=== PATIENT | female | born 1950 | race Caucasian/White ===

== ENCOUNTER → 2018-10-22 | Outpatient (CLI) | payer MEDICARE, OTHER ==
--- NOTE | 2018-10-22 14:34 | MM ---
Reason for exam: clinical finding. Last mammogram was performed 4 years and 11 months ago. History: Patient is postmenopausal and has history of endometrial cancer at age 33. Taking estrogen for 30 years 6 months beginning at age 33. Physical Findings: Nurse did not find any significant physical abnormalities on exam. MG 3D Diag Mammo W/Cad NAVA Bilateral CC and MLO view(s) were taken. Prior study comparison: November 26, 2013, bilateral MG screening mammo w CAD. October 13, 2009, bilateral digital screening mammogram. The breast tissue is heterogeneously dense. This may lower the sensitivity of mammography. Benign appearing bilateral calcifications, with no suspicious groups. No suspicious abnormality. No significant new findings when compared with previous films. These results were verbally communicated with the patient and result sheet given to the patient on 10/22/18. ASSESSMENT: Benign, BI-RAD 2 RECOMMENDATION: Routine screening mammogram of both breasts in 1 year.
== END | disposition home or self-care (01) ==
LOC: RADMAMWWP 13:17
PROVIDERS: ATTEND Surgery
DX: N64.4 Mastodynia (principal)
CPT/HCPCS: 77066; G0279; 77062

== ENCOUNTER → 2018-10-30 | Outpatient (CLI) | payer MEDICARE, OTHER ==
--- NOTE | 2018-10-30 15:07 | BD ---
EXAMINATION TYPE: Axial Bone Density DATE OF EXAM: 10/30/2018 COMPARISON: NONE CLINICAL HISTORY: M 81.0 Height: 4 ft 3 in Weight: 148 FRAX RISK QUESTIONS: RISK FACTORS HISTORY OF: Surgery to Spine/Hip(right/left)/Wrist (right/left): LUMBAR 4-5 When: 2000 Active: YES Postmenopausal woman: TOTAL HYST AGE 35 Take estrogen and/or progesterone medications: ESTRADIOL How lon YEARS Lost more than 2 inches in height since high school: YES AT HER TALLEST SHE WAS 4 FT 11 IN MEDICATIONS: Additional Medications: BLOOD PRESSURE MEDS, ESTRADIOL Additional History: EXAM MEASUREMENTS: Bone mineral density about the R hip (g/cm2): 0.885 Bone mineral density about the L hip (g/cm2): 0.880 T Score values are as follows: -----R Neck: -1.1 -----L Neck: -1.1 -----R Total: 0.0 -----L Total: 0.3 Bone mineral density has: DECREASED -1.9 % since study of: 2009 Bone mineral density about the L Wrist (g/cm2): 0.633 T Score values are as follows: -----Dist. R+U: -0.6 -----Prox. R+U: -0.2 -----Radius total: -0.7 FIRST TIME FOREARM HAS BEEN DONE IMPRESSION: Osteopenia (T Score between -2.5 and -1). There is slightly increased risk of fracture and the patient may be considered for treatment. Re-Screen 2-5 years. NOTE: T-SCORE=SD OF THE YOUNG ADULT MEAN.
== END | disposition home or self-care (01) ==
LOC: RADBDWWP 12:56
PROVIDERS: ATTEND Internal Medicine Geriatric Medicine
DX: M85.80 Other specified disorders of bone density and structure, unspecified site (principal)
CPT/HCPCS: 77080

== ENCOUNTER → 2018-11-01 | Outpatient (CLI) | payer MEDICARE, OTHER ==
[2018-11-01 15:26] VITALS: BP 145/82; PULSE 68; RESP 18; TEMP 97.8; BMI 33.1
--- NOTE | 2018-11-01 16:16 | P.GSHP ---
History of Present Illness H&P Date: 11/01/18 Chief Complaint: Right upper quadrant constant pain The patient is a 68-year-old white female who presents for examination secondary to right upper quadrant abdominal pain. She did have a bilateral mammogram and [id number] this was benign BIRADS 2. The patient does not complain of any lumps or masses in her breasts. No nipple discharge or skin changes of the breast. The patient's pain is located across the upper abdomen and sometimes goes from the right to the left side. The pain also seems to travel to the back. The pain is aggravated with physical work. The patient was not started in the back and come to the front but it does start in the front and go to the back. The patient has had multiple bouts of pancreatitis, this occurred following back surgery in 2000. She does not have any problems with back pain at this time. The patient does complain of reflux. Family History: none Hormonal History: Menarche: 10 2 miscarrages, breast fed: no, first born at 18 menopause: Total hysterectomy for endometriosis BCP: none hormones: estrodial Surgical history: 1. Total abdominal hysterectomy for endometriosis 2. back surgery 3. bladder sling 4. lipoma, pain after removed Medical history: pancreatitis hiatal hernia Social History: smoke: none alcohol: occasional drugs: none - Constitutional Constitutional: Reports sweats - EENT Eyes: denies blurred vision, denies pain Ears: deny: decreased hearing, tinnitus Ears, nose, mouth and throat: Reports headache - Breasts Breasts: bilateral: as per HPI - Cardiovascular Cardiovascular: Reports high blood pressure, Reports shortness of breath, Denies chest pain - Respiratory Comment: asthma - Gastrointestinal Comment: Hiatal hernia, history of peptic ulcer disease Gastrointestinal: Reports diarrhea - Genitourinary (Female) Genitourinary: Denies dysuria, Denies hematuria - Menstruation Menstruation: Reports post hysterectomy - Musculoskeletal Comment: back surgery - Integumentary Integumentary: Denies pruritus, Denies rash - Neurological Comment: tingling in hands Neurological: Reports numbness - Psychiatric Psychiatric: Reports depression, Denies anxiety - Endocrine Endocrine: Reports fatigue - Hematologic/Lymphatic Comment: none - Allergic/Immunologic Allergic/Immunologic: Reports as per HPI Past Medical History History of Any Multi-Drug Resistant Organisms: None Reported Smoking Status: Never smoker Medications and Allergies Home Medications Medication Instructions Recorded Confirmed Type ALPRAZolam [Xanax] 0.25 mg PO HS PRN 11/01/18 11/01/18 History Calcium Carbonate [Calcium] 600 mg PO DAILY 11/01/18 11/01/18 History Estradiol 0.5 mg PO DAILY 11/01/18 11/01/18 History Iron 18 mg PO DAILY 11/01/18 11/01/18 History Lisinopril [Zestril] 10 mg PO DAILY 11/01/18 11/01/18 History Multivitamin [Multivitamins Adult 1 each PO DAILY 11/01/18 11/01/18 History Gummies] Vitamin B Complex 1 each PO DAILY 11/01/18 11/01/18 History Allergies Allergy/AdvReac Type Severity Reaction Status Date / Time No Known Allergies Allergy Unverified 11/01/18 15:26 Surgical - Exam Vital Signs Temp Pulse Resp BP Pulse Ox 97.8 F 68 18 145/82 100 11/01/18 15:21 11/01/18 15:21 11/01/18 15:21 11/01/18 15:21 11/01/18 15:21 - General well developed, well nourished, no distress - Eyes normal ocular movement - ENT no hearing loss, no congestion - Neck no masses, trachea midline - Respiratory normal respiratory effort, clear to auscultation - Cardiovascular Rhythm: regular Heart Sounds: normal: S1, S2 - Abdomen Abdomen: soft, non tender, no guarding, no rigid, no rebound - Integumentary normal turgor - Neurologic no disoriented, no combative - Musculoskeletal normal gait, normal posture - Psychiatric oriented to time, oriented to person, oriented to place, speech is normal, memory intact Breast examination: Patient deferred Results Mammogram reviewed with Dr. Carl Computed tomography scan abdomen and pelvis reviewed Thoracic CT reviewed Spinal films reviewed Abdomen Revealed Assessment and Plan Assessment: Impression: 1. Chronic mid epigastric abdominal pain 2. Hiatal hernia 3. 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 Recent mammogram with no lesions of concern 5. Groundglass appearance of lungs on chest CT 6. History of pancreatitis Plan: 1. Patient at this time has no radiographic disease in the breast 2. The midepigastric pain does not appear to be originating from the breast 3. Patient deferred breast exam 4. Would recommend medical management of medical problems, this will most likely include appointment with pulmonology, and questionable appointment with surgery regarding hiatal hernia. Cc: Dr. Liu
== END ==
LOC: WWCWWP 14:52
PROVIDERS: ATTEND Surgery
DX: Z53.9 Procedure and treatment not carried out, unspecified reason (principal)

== ENCOUNTER 2019-10-02 06:56 | Day surgery (SDC) | payer MEDICARE, OTHER ==
[2019-09-29 16:00] VITALS: BMI 29.2
[~2019-10-02 06:56] MED LIST: LACTATED RINGERS 1,000 ML IV SCH; LIDOCAINE 1% (10MG/ML) FOR IV START INTRADERMA PRN
[2019-10-02 07:10] VITALS: RESP 16; TEMP 97.9
--- NOTE | 2019-10-02 07:57 | P.GSHP ---
History of Present Illness H&P Date: 10/02/19 CHIEF COMPLAINT: GERD HISTORY OF PRESENT ILLNESS: The patient is a 69-year-old female who presents reports gastroesophageal reflux disease. Upper endoscopy was offered for further evaluation and management. PAST MEDICAL HISTORY: Please see list. PAST SURGICAL HISTORY: Please see list. MEDICATIONS: Please see list. ALLERGIES: Please see list. SOCIAL HISTORY: No illicit drug use FAMILY HISTORY: No reports of Crohn disease or ulcerative colitis. REVIEW OF ORGAN SYSTEMS: CONSTITUTIONAL: No reports of fevers or chills. GI: Denies any blood in stools or constipation. PHYSICAL EXAM: VITAL SIGNS: Stable GENERAL: Well-developed and pleasant in no acute distress. HEENT: No scleral icterus. Extraocular movements grossly intact. Moist buccal mucosa. NECK: Supple without lymphadenopathy. CHEST: Unlabored respirations. Equal bilateral excursions. CARDIOVASCULAR: Regular rate and rhythm. Distal 2+ pulses. ABDOMEN: Soft, nondistended. MUSCULOSKELETAL: No clubbing, cyanosis, or edema. ASSESSMENT: 1. Gastroesophageal reflux disease PLAN: 1. Recommend proceeding with an upper endoscopy Past Medical History Past Medical History: Asthma, GERD/Reflux, Thyroid Disorder Additional Past Medical History / Comment(s): Hiatal Hernia, hx 2 ulcers in stomach; Bursitis both knees. Hx pancreatitis. History of Any Multi-Drug Resistant Organisms: None Reported Past Surgical History: Hysterectomy, Orthopedic Surgery, Tonsillectomy Additional Past Surgical History / Comment(s): Back surgery with hardware, L carpal tunnel, L foot surgery. Past Anesthesia/Blood Transfusion Reactions: Postoperative Nausea & Vomiting (PONV) Past Psychological History: No Psychological Hx Reported Smoking Status: Never smoker Past Alcohol Use History: Occasional Past Drug Use History: None Reported - Past Family History Mother Family Medical History: No Reported History Medications and Allergies Home Medications Medication Instructions Recorded Confirmed Type ALPRAZolam [Xanax] 0.25 mg PO HS PRN 11/01/18 10/02/19 History Calcium Carbonate [Calcium] 600 mg PO DAILY 11/01/18 10/02/19 History Estradiol 0.5 mg PO DAILY 11/01/18 10/02/19 History Lisinopril [Zestril] 20 mg PO DAILY 11/01/18 10/02/19 History Multivitamin [Multivitamins Adult 1 each PO DAILY 11/01/18 10/02/19 History Gummies] Vitamin B Complex 1 each PO DAILY 11/01/18 10/02/19 History Allergies Allergy/AdvReac Type Severity Reaction Status Date / Time No Known Allergies Allergy Unverified 10/02/19 07:07 Surgical - Exam Vital Signs Temp Pulse Resp BP Pulse Ox 97.9 F 96 16 169/87 95 10/02/19 07:09 10/02/19 07:09 10/02/19 07:09 10/02/19 07:09 10/02/19 07:09
[2019-10-02] MEDS ORDERED: MIDAZOLAM 2 MG/2 ML VIAL ONE (07:58)
[2019-10-02] MEDS ORDERED: PROPOFOL 10 MG/ML 20 ML VIAL IV ONE (07:58)
[2019-10-02] MEDS ORDERED: LIDOCAINE 1% INJ 10MG/ML (20 ML MDV) ONE (07:58)
[2019-10-02] MEDS ORDERED: fentaNYL (PF) 50 MCG/ML 2 ML AMP ONE (07:58)
--- NOTE | 2019-10-02 08:16 | P.PCN ---
Date of Procedure: 10/02/19 Description of Procedure: PREOPERATIVE DIAGNOSIS: Gastroesophageal reflux disease. Hiatal hernia POSTOPERATIVE DIAGNOSIS: Gastroesophageal reflux disease. Diaphragmatic hiatal hernia Superficial gastric ulcers with bleeding Obstructive sleep apnea OPERATION: Esophagogastroduodenoscopy with biopsies along antrum. SURGEON: Nydia Tovar MD ANESTHESIA: MAC. INDICATIONS: The patient is a 69-year-old female who presents with a history of reflux disease. Benefits and risks of the procedure were described. Informed consent was obtained. DESCRIPTION: The patient was brought into the endoscopy suite and laid in the left lateral decubitus position. An Olympus gastroscope was passed along the posterior oropharynx down to the distal esophagus where the squamocolumnar junction was encountered at 30 cm from the incisors. The stomach was entered and no bile reflux was found. Additional findings are listed below. Biopsies with cold forceps were obtained of the antrum. The first through third portion of the duodenum was examined and unremarkable. Retroflexion of the scope confirmed Hill grade 4 lower esophageal valve. The squamocolumnar junction demonstrated LA grade B erosive esophagitis. The stomach was desufflated. The patient tolerated the procedure well. FINDINGS: Squamocolumnar junction 30 cm from the incisors. Diaphragmatic hiatus at 35 cm. Hiatal hernia, 5 cm, sliding type Hill grade 4 lower esophageal valve. LA grade B erosive esophagitis. No active duodenitis. Acute bleeding from superficial gastric ulcers, cardia Decreased oxygen saturation during procedure consistent with sleep apnea RECOMMENDATIONS: 1. Recommend iron panel for gastric ulcers from symptomatic hiatal hernia 2. Omeprazole 40 mg daily for 2 weeks 3. Recommend referral for sleep apnea and treatment Plan - Discharge Summary Discharge Rx Participant: Yes New Discharge Prescriptions: New Omeprazole [PriLOSEC] 40 mg PO DAILY #14 cap Continue ALPRAZolam [Xanax] 0.25 mg PO HS PRN PRN Reason: Anxiety Vitamin B Complex 1 each PO DAILY Multivitamin [Multivitamins Adult Gummies] 1 each PO DAILY Lisinopril [Zestril] 20 mg PO DAILY Estradiol 0.5 mg PO DAILY Calcium Carbonate [Calcium] 600 mg PO DAILY Discharge Medication List ALPRAZolam [Xanax] 0.25 mg PO HS PRN 11/01/18 [History] Calcium Carbonate [Calcium] 600 mg PO DAILY 11/01/18 [History] Estradiol 0.5 mg PO DAILY 11/01/18 [History] Lisinopril [Zestril] 20 mg PO DAILY 11/01/18 [History] Multivitamin [Multivitamins Adult Gummies] 1 each PO DAILY 11/01/18 [History] Vitamin B Complex 1 each PO DAILY 11/01/18 [History] Omeprazole [PriLOSEC] 40 mg PO DAILY #14 cap 10/02/19 [Rx] Follow up Appointment(s)/Referral(s): Nydia Tovar MD [STAFF PHYSICIAN] - 10/14/19 Patient Instructions/Handouts: *Surgery [facility] - (Anesthesia) Endoscopy Discharge Instructions, Upper Endoscopy (DC), Peptic Ulcer (DC), Diet for Stomach Ulcers and Gastritis (GEN), Hiatal Hernia (DC) Activity/Diet/Wound Care/Special Instructions: New prescription at pharmacy Discharge Disposition: HOME SELF-CARE
[2019-10-02 08:29] VITALS: BP 117/76; PULSE 92
== END 2019-10-02 08:49 | disposition home or self-care (01) ==
LOC: ORWHC2ENDO 06:56
PROVIDERS: ATTEND Surgery Plastic and Reconstructive Surgery
DX: K21.0 Gastro-esophageal reflux disease with esophagitis (principal); K25.4 Chronic or unspecified gastric ulcer with hemorrhage; K29.51 Unspecified chronic gastritis with bleeding; K44.9 Diaphragmatic hernia without obstruction or gangrene; G47.33 Obstructive sleep apnea (adult) (pediatric); K22.11 Ulcer of esophagus with bleeding; J45.909 Unspecified asthma, uncomplicated; E07.9 Disorder of thyroid, unspecified; I10 Essential (primary) hypertension; Z88.5 Allergy status to narcotic agent; Z87.11 Personal history of peptic ulcer disease; Z87.39 Personal history of other diseases of the musculoskeletal system and connective tissue; Z87.19 Personal history of other diseases of the digestive system; Z90.710 Acquired absence of both cervix and uterus; Z98.890 Other specified postprocedural states; Z90.89 Acquired absence of other organs; Z86.69 Personal history of other diseases of the nervous system and sense organs; Z91.89 Other specified personal risk factors, not elsewhere classified; Z79.899 Other long term (current) drug therapy; Z79.890 Hormone replacement therapy
CPT/HCPCS: 88305; 43239; J2250; J2001; J3010; J2704

== ENCOUNTER → 2019-10-22 | Day surgery (SDC) | payer MEDICARE, OTHER ==
[2019-10-20 16:01] VITALS: BMI 29.5
[~2019-10-22] MED LIST changes: +ALPRAZolam 0.25 MG TAB PO PRN; +ALPRAZolam 0.5 MG TAB PO PRN; +ASPIRIN 325 MG TAB PO STA; +HEPARIN SODIUM 1,000 UN/ML (10ML VL) IV ONE; +IOPAMIDOL-370 100ML BTL INJ ONE; -LACTATED RINGERS 1,000 ML IV SCH; -LIDOCAINE 1% (10MG/ML) FOR IV START INTRADERMA PRN; +LIDOCAINE 1% INJ 10MG/ML (20 ML MDV) SQ ONE; +MIDAZOLAM 2 MG/2 ML VIAL IVP ONE; +MULTIVITAMINS, THERA 1 EACH TAB PO SCH; +NITROGLYCERIN SL TABS 0.4 MG TAB SUBLINGUAL PRN; +NON FORMULARY DRUG (Vitamin B Complex [Vitamin B Complex] 1 EACH) PO SCH; +PANTOPRAZOLE 40 MG TABLET PO SCH; +RX INFO: IV CONTRAST WAS GIVEN 1 EACH MISC MISCELLANE PRN; +SODIUM CHLORIDE 0.9% 1,000 ML IV SCH; +SODIUM CHLORIDE 0.9% 1,000 ML in EMPTY BAG 1 BAG IV ONE; +VERAPAMIL SYRINGE (5 MG/10 ML) INTRAARTER ONE; +fentaNYL (PF) 50 MCG/ML 2 ML AMP IV ONE; +lisinopriL 20 MG TAB PO SCH
[2019-10-22 09:56] LABS: Basophils # (A) 0.1 k/uL (0-0.2); Basophils % (A) 0 %; Eosinophils # (A) 0.4 k/uL (0-0.7); Eosinophils % (A) 3 %; HCT 45.7 % (34.0-46.0); HGB 14.7 gm/dL (11.4-16.0); Lymphocytes # (A) 2.4 k/uL (1.0-4.8); Lymphocytes % (A) 20 %; MCH 30.3 pg (25.0-35.0); MCHC 32.3 g/dL (31.0-37.0); MCV 93.8 fL (80.0-100.0); Mean Platelet Volume 7.5; Monocytes # (A) 0.4 k/uL (0-1.0); Monocytes % (A) 4 %; Neutrophils # (A) 8.6 k/uL (1.3-7.7); Neutrophils % (A) 72 %; Platelet Count 402 k/uL (150-450); RBC 4.87 m/uL (3.80-5.40); RDW 14.1 % (11.5-15.5)
[2019-10-22 09:57] VITALS: RESP 18; TEMP 98.2
[2019-10-22 10:09] LABS: African American GFR (CKD) >90 (>60 ml/min/1.73 sqM); Anion Gap 7 mmol/L; Blood Urea Nitrogen 19 mg/dL (7-17); Calcium 9.4 mg/dL (8.4-10.2); Carbon Dioxide 24 mmol/L (22-30); Chloride 107 mmol/L (98-107); Glucose 90 mg/dL (74-99); Non-African American GFR(CKD) 88 (>60 ml/min/1.73 sqM); Sodium 138 mmol/L (137-145)
[2019-10-22 10:11] LABS: Potassium 4.8 mmol/L (3.5-5.1)
--- NOTE | 2019-10-22 12:29 | LTR ---
DATE OF SERVICE: 10/22/2019 RE: Twyla Stevens Dear Dr. Liu: I had the pleasure to perform cardiac catheterization on Mrs. Stevens at [facility] on October 22, 2019 and a full copy of the procedure note will be forwarded to you. In brief, she was found to have no evidence of obstructive coronary artery disease and based on those findings, I see no contraindication to her scheduled surgical intervention. Thank you again for allowing me to participate in this patient's personal care. Please feel free to call for any questions. Sincerely yours, MD OLU DanielleL / SULMAN: [id number] /
--- NOTE | 2019-10-22 12:29 | CC ---
CARDIAC CATHETERIZATION REPORT Mrs Ferris is a 69-year-old female with no prior documented history of coronary artery disease who is scheduled to undergo intervention by Dr. Tovar, underwent a myocardial perfusion imaging that revealed evidence of inducible ischemia involving the lateral wall. The patient has a known history of hypertension, hyperlipidemia. In view of that, recommendation made regarding cardiac catheterization. The procedures, risks, and complication were discussed with the patient who is in full understanding and agreement. PROCEDURE: Patient was brought to quality assurance lab technician in a fasting semi-sedated state after receiving fentanyl and Benadryl and achieving moderate conscious sedated state. Using Xylocaine anesthesia and Seldinger technique, a 6-Maori sheath was introduced in the right radial artery. Selective right and left coronary angiography performed using 5-Maori 3.5 left Gianna and 4 bend right Gianna catheter, multiple views of the coronary artery including hemiaxial views obtained. following that, the right Gianna was used to cross the aortic valve and left ventricular end-diastolic pressure was calculated. Following that, catheter and sheath were removed. Hemostasis was obtained with deployment of a TR band. There was no immediate complication. Patient is returned to her room in stable condition. Of note, the patient received 4000 units of intravenous heparin as well as intra-arterial verapamil. FINDINGS: LEFT MAIN: This is a large-sized vessel, bifurcating into left circumflex, left anterior descending artery, left main coronary artery has no evidence of high-grade stenosis. LEFT ANTERIOR DESCENDING ARTERY: This is a large-sized vessel, reaching toward the apex with a wraparound apex segment giving rise to 2 diagonal branch the left and descending artery as well as branches have no evidence of obstructive coronary disease next left circumflex this is a nondominant vessel giving rise to 4 obtuse marginal branch. The third one is the largest in caliber, the left circumflex as well as branches have no evidence of obstructive coronary artery disease. RIGHT CORONARY ARTERY: This is a large dominant vessel that has a posterior takeoff bifurcating distally PDA and posterolateral segment branches. The right coronary artery as well as branches have no evidence of obstructive coronary artery disease. LEFT VENTRICULOGRAM: Left ventriculogram was not performed. HEMODYNAMICS: There was no gradient across the aortic valve. The left ventricular end-diastolic pressure was 8-12 mmHg. CONCLUSION: 1. Normal coronary arteries. 2. Normal left ventricular end-diastolic pressure. RECOMMENDATION: In view of finding anatomy, I recommend continue medical therapy with aggressive coronary risk modifications being initiated. Those findings and recommendation were discussed with the patient and her family and they are in full understanding and agreement. Duration of procedure 20 minutes. KRISTOFER / JEREMY: [id number] /
[2019-10-22 15:26] VITALS: BP 104/62; PULSE 75
== END | disposition home or self-care (01) ==
LOC: CATHCVL 09:25
PROVIDERS: ATTEND Internal Medicine Interventional Cardiology
DX: R07.9 Chest pain, unspecified (principal); R94.39 Abnormal result of other cardiovascular function study; I10 Essential (primary) hypertension; Z82.49 Family history of ischemic heart disease and other diseases of the circulatory system; E78.2 Mixed hyperlipidemia; Z98.1 Arthrodesis status; Z98.890 Other specified postprocedural states; Z87.891 Personal history of nicotine dependence; Z79.82 Long term (current) use of aspirin; Z79.890 Hormone replacement therapy; Z79.899 Other long term (current) drug therapy
CPT/HCPCS: 93458; 80048; 85025; C1769; C1894; J2250; J2001; J3010; J1644; Q9967

== ENCOUNTER → 2020-01-09 | Outpatient (CLI) | payer MEDICARE, OTHER ==
--- NOTE | 2020-01-12 09:41 | MM ---
Reason for exam: screening (asymptomatic). Last mammogram was performed 1 year and 3 months ago. History: Patient is postmenopausal and has history of endometrial cancer at age 33. Taking estrogen for 30 years 6 months beginning at age 33. Physical Findings: A clinical breast exam by your physician is recommended on an annual basis and results should be correlated with mammographic findings. MG 3D Screening Mammo W/Cad Bilateral CC and MLO view(s) were taken. Prior study comparison: October 22, 2018, bilateral MG 3d diag mammo w/cad NAVA. November 26, 2013, bilateral MG screening mammo w CAD. There are scattered fibroglandular densities. Finding #1: There is questionable architectural distortion in the outer quadrant of the left breast. Finding #2: There are typically benign calcifications in both breasts. There is a chronic nodularity in the right breast, stable. ASSESSMENT: Incomplete: need additional imaging evaluation, BI-RAD 0 RECOMMENDATION: Special view mammogram of the left breast. If lesion persists on supplemental views, image directed ultrasound is recommended. [facility] will attempt to contact patient to return for supplemental views and ultrasound if indicated.
== END | disposition home or self-care (01) ==
LOC: RADMAMWWP 11:08
PROVIDERS: ATTEND Internal Medicine Geriatric Medicine
DX: Z12.31 Encounter for screening mammogram for malignant neoplasm of breast (principal)
CPT/HCPCS: 77063; 77067

== ENCOUNTER → 2020-03-02 | Outpatient (CLI) | payer MEDICARE, OTHER ==
--- NOTE | 2020-03-02 08:51 | US ---
EXAMINATION TYPE: US gallbladder DATE OF EXAM: 03/02/2020 COMPARISON: NONE CLINICAL HISTORY: K80.20 GALLSTONES. EXAM MEASUREMENTS: Liver Length: 12.4 cm Gallbladder Wall: 0.2 cm CBD: 0.6 cm Right Kidney: 8.7 x 3.7 x 5.0 cm Pancreas: Tail obscured by overlying bowel gas Liver: wnl Gallbladder: wnl Evidence for sonographic Edwards's sign: no CBD: wnl Right Kidney: multiple tiny echogenic foci, probable stones, measures small IMPRESSION: 1. Multiple tiny right renal stones are suspected with no evidence of hydronephrosis. 2. No evidence of gallstones.
--- NOTE | 2020-03-02 13:24 | NM ---
EXAMINATION TYPE: NM hepatobiliary w EF DATE OF EXAM: 03/02/2020 COMPARISON: Ultrasound gallbladder same date HISTORY: Diaphragmatic hernia and pain TECHNIQUE: After the intravenous administration of 4.9 mCi Tc 99m Mebrofenin hepatobiliary scintigrap hy is performed. Immediate images post injection. FINDINGS: There is satisfactory initial accumulation of tracer by the liver. The gallbladder is visualized wit hin 8 minutes. The small bowel activity is noted within 30 minutes. At one hour 8 ounces of oral en sure plus is given to mimic CCK and gallbladder ejection fraction is calculated at 84 %, at the upper limit of the normal range. Therefore there is no scintigraphic evidence of cystic or common bile du ct obstruction to suggest acute cholecystitis. IMPRESSION: Exam is within normal limits.
== END | disposition home or self-care (01) ==
LOC: RADUSWWP 08:04
PROVIDERS: ATTEND Surgery Plastic and Reconstructive Surgery
DX: K80.20 Calculus of gallbladder without cholecystitis without obstruction (principal); K44.9 Diaphragmatic hernia without obstruction or gangrene; Z88.6 Allergy status to analgesic agent
CPT/HCPCS: 76705; 78226; A9537

== ENCOUNTER → 2020-03-02 | Outpatient (CLI) | payer MEDICARE, OTHER | END | disposition home or self-care (01) | LOC: LABWHC1 08:07 | PROVIDERS: ATTEND Internal Medicine Interventional Cardiology | DX: Z53.9 Procedure and treatment not carried out, unspecified reason (principal) ==

== ENCOUNTER → 2020-03-10 | Outpatient (CLI) | payer MEDICARE, OTHER ==
--- NOTE | 2020-03-10 12:54 | FL ---
Barium swallow HISTORY: Pain under rib cage, hernia, K 80.20 Patient was given high density barium to drink. 15 intraoperative images, 1 minute 27 seconds fluoroscopy time Correlation to CT scan 09/16/2018 There is a paraesophageal hernia present with partial intrathoracic stomach. Some tertiary esophageal contractions were noted. No extrinsic esophageal lesion, no intrinsic lesion. There is no obstructio n to flow. No gastroesophageal reflux was identified. IMPRESSION: Hiatal hernia with partial intrathoracic stomach.
== END | disposition home or self-care (01) ==
LOC: RADUSWWP 09:21
PROVIDERS: ATTEND Surgery Plastic and Reconstructive Surgery
DX: K44.9 Diaphragmatic hernia without obstruction or gangrene (principal); Z88.6 Allergy status to analgesic agent
CPT/HCPCS: 74220

== ENCOUNTER → 2020-03-10 | Outpatient (CLI) | payer MEDICARE, OTHER ==
--- NOTE | 2020-03-10 11:23 | MM ---
Reason for exam: additional evaluation requested from abnormal screening. Last mammogram was performed 2 months ago. History: Patient is postmenopausal and has history of endometrial cancer at age 33. Taking estrogen for 30 years 6 months beginning at age 33. Physical Findings: Nurse did not find any significant physical abnormalities on exam. MG 3D Work Up W/Cad LT Spot compression CC, spot compression MLO, and LM view(s) were taken of the left breast. Prior study comparison: January 09, 2020, bilateral MG 3d screening mammo w/cad. October 22, 2018, bilateral MG 3d diag mammo w/cad NAVA. There are scattered fibroglandular densities. There is no discrete abnormality. No significant new findings when compared with previous films. These results were verbally communicated with the patient and result sheet given to the patient on 03/10/20. ASSESSMENT: Benign, BI-RAD 2 RECOMMENDATION: Return to routine screening mammogram schedule for both breasts.
== END | disposition home or self-care (01) ==
LOC: RADMAMWWP 10:18
PROVIDERS: ATTEND Internal Medicine Geriatric Medicine
DX: R92.8 Other abnormal and inconclusive findings on diagnostic imaging of breast (principal)
CPT/HCPCS: 77065; G0279; 77061

== ENCOUNTER → 2020-04-16 | Outpatient (CLI) | payer MEDICARE, OTHER ==
[2020-04-16 15:47] LABS: Chol/HDL Ratio 2.8
== END | disposition home or self-care (01) ==
LOC: LABWHC1 09:42
PROVIDERS: ATTEND Internal Medicine Interventional Cardiology
DX: E78.2 Mixed hyperlipidemia (principal)
CPT/HCPCS: 36415; 80061; 84450; 84460

== ENCOUNTER → 2020-04-16 | Outpatient (CLI) | payer MEDICARE, OTHER ==
[2020-04-16 10:30] LABS: HCT 42.7 % (34.0-46.0); HGB 13.6 gm/dL (11.4-16.0); MCH 29.6 pg (25.0-35.0); MCHC 31.8 g/dL (31.0-37.0); MCV 92.9 fL (80.0-100.0); Mean Platelet Volume 7.1; Platelet Count 349 k/uL (150-450); RDW 14.8 % (11.5-15.5); WBC 8.2 k/uL (3.8-10.6)
== END | disposition home or self-care (01) ==
LOC: LABPAT 09:34
PROVIDERS: ATTEND Surgery Plastic and Reconstructive Surgery
DX: Z01.818 Encounter for other preprocedural examination (principal)
CPT/HCPCS: 85027

== ENCOUNTER 2020-04-19 10:36 | Inpatient (IN) | payer MEDICARE, OTHER ==
--- NOTE | 2020-04-19 05:12 | P.GSHP ---
History of Present Illness H&P Date: 04/19/20 CHIEF COMPLAINT: Paraesophageal hiatal hernia with gastroesophageal reflux disease. HISTORY OF PRESENT ILLNESS: The patient is a 70-year-old female who presents with paraesophageal hiatal hernia. She has completed an esophageal manometry including upper endoscopy workup. Now she presents for surgical intervention. PAST MEDICAL HISTORY: Please see list. PAST SURGICAL HISTORY: Please see list. MEDICATIONS: Please see list. ALLERGIES: Please see list. SOCIAL HISTORY: No illicit drug use FAMILY HISTORY: No reports of Crohn disease or ulcerative colitis. REVIEW OF ORGAN SYSTEMS: CONSTITUTIONAL: No reports of fevers or chills. GI: Denies any blood in stools or constipation. PHYSICAL EXAM: VITAL SIGNS: Stable GENERAL: Well-developed pleasant and in no acute distress. HEENT: No scleral icterus. Extraocular movements grossly intact. Moist buccal mucosa. NECK: Supple without lymphadenopathy. CHEST: Unlabored respirations. Equal bilateral excursions. CARDIOVASCULAR: Regular rate and rhythm. Distal 2+ pulses. ABDOMEN: Soft, nondistended. No peritoneal signs. MUSCULOSKELETAL: No clubbing, cyanosis, or edema. SKIN: Well-perfused. Good skin turgor. MANOMETRY: Shows no evidence of achalasia or scleroderma. EGJ outflow obstruction noted. ASSESSMENT: 1. Diaphragmatic paraesophageal hiatal hernia with severe gastroesophageal reflux disease. PLAN: 1. Recommend proceeding with a robotic paraesophageal hiatal hernia with possible mesh. 2. Benefits and risks of surgical intervention was discussed including possibility of open technique. 3. Inpatient hospitalization recommended of 2 nights 4. DVT prophylaxis. 5. Antibiotic prophylaxis. 6. She has also completed a very low caloric high-protein diet to address underlying hepatomegaly. Past Medical History Past Medical History: Asthma, Chest Pain / Angina, GERD/Reflux, Hyperlipidemia, Hypertension Additional Past Medical History / Comment(s): Hiatal Hernia, hx 2 ulcers in stomach; Bursitis both knees. Hx pancreatitis, SOB w/exertion History of Any Multi-Drug Resistant Organisms: None Reported Past Surgical History: Back Surgery, Heart Catheterization, Hysterectomy, Orthopedic Surgery, Tonsillectomy Additional Past Surgical History / Comment(s): Back surgery with hardware, L carpal tunnel, L foot surgery, Past Anesthesia/Blood Transfusion Reactions: Previous Problems w/ Anesthesia, Motion Sickness, Postoperative Nausea & Vomiting (PONV) Additional Past Anesthesia/Blood Transfusion Reaction / Comment(s): was told stopped breathing during EGD Smoking Status: Never smoker - Past Family History Mother Family Medical History: No Reported History Medications and Allergies Home Medications Medication Instructions Recorded Confirmed Type ALPRAZolam [Xanax] 0.25 mg PO HS PRN 11/01/18 04/14/20 History Calcium Carbonate [Calcium] 600 mg PO DAILY 11/01/18 04/14/20 History Estradiol 0.5 mg PO DAILY 11/01/18 04/14/20 History Multivitamin [Multivitamins Adult 1 each PO DAILY 11/01/18 04/14/20 History Gummies] Vitamin B Complex 1 each PO DAILY 11/01/18 04/14/20 History lisinopriL [Zestril] 20 mg PO DAILY 11/01/18 04/14/20 History Omeprazole [PriLOSEC] 40 mg PO DAILY #14 cap 10/02/19 04/14/20 Rx Atorvastatin [Lipitor] 20 mg PO DAILY 04/14/20 04/14/20 History Sucralfate [Carafate] 1 gm PO DAILY 04/14/20 04/14/20 History guaiFENesin [Mucinex] 600 mg PO DAILY 04/14/20 04/14/20 History Allergies Allergy/AdvReac Type Severity Reaction Status Date / Time No Known Allergies Allergy Unverified 04/14/20 15:21
[~2020-04-19 10:36] MED LIST changes: +ACETAMINOPHEN TAB 500 MG TAB PO STA; -ALPRAZolam 0.25 MG TAB PO PRN; -ALPRAZolam 0.5 MG TAB PO PRN; -ASPIRIN 325 MG TAB PO STA; +DEXAMETHASONE SOD PHOSPHATE 4 MG/ML 1 ML VIAL IV ONE; +GABAPENTIN 300 MG CAP PO STA; -HEPARIN SODIUM 1,000 UN/ML (10ML VL) IV ONE; +HEPARIN SODIUM,PORCINE 5,000 UNIT/ML 1 ML VIAL SQ PRN; -IOPAMIDOL-370 100ML BTL INJ ONE; +LIDOCAINE 1% (10MG/ML) FOR IV START INTRADERMA PRN; -LIDOCAINE 1% INJ 10MG/ML (20 ML MDV) SQ ONE; +MELOXICAM 7.5 MG TAB PO ONE; -MIDAZOLAM 2 MG/2 ML VIAL IVP ONE; -MULTIVITAMINS, THERA 1 EACH TAB PO SCH; -NITROGLYCERIN SL TABS 0.4 MG TAB SUBLINGUAL PRN; -NON FORMULARY DRUG (Vitamin B Complex [Vitamin B Complex] 1 EACH) PO SCH; +ONDANSETRON 4 MG/2 ML VIAL IVP ONE; -PANTOPRAZOLE 40 MG TABLET PO SCH; -RX INFO: IV CONTRAST WAS GIVEN 1 EACH MISC MISCELLANE PRN; +SCOPOLAMINE 1.5MG/72HR PATCH TRANSDERM STA; -SODIUM CHLORIDE 0.9% 1,000 ML IV SCH; -SODIUM CHLORIDE 0.9% 1,000 ML in EMPTY BAG 1 BAG IV ONE; -VERAPAMIL SYRINGE (5 MG/10 ML) INTRAARTER ONE; -fentaNYL (PF) 50 MCG/ML 2 ML AMP IV ONE; -lisinopriL 20 MG TAB PO SCH
[2020-04-19] MEDS ORDERED: CHLORHEXIDINE GLUCONATE 15 ML CUP MUCOUS MEM ONE (10:57)
[2020-04-19] MEDS: LACTATED RINGERS 1,000 ML IV SCH (11:18)
[2020-04-19 11:42] LABS: ALT 24 U/L (4-34); AST 37 U/L (14-36); African American GFR (CKD) >90 (>60 ml/min/1.73 sqM); Alkaline Phosphatase 82 U/L (38-126); Anion Gap 8 mmol/L; Blood Urea Nitrogen 19 mg/dL (7-17); Calcium 9.8 mg/dL (8.4-10.2); Carbon Dioxide 24 mmol/L (22-30); Chloride 107 mmol/L (98-107); Glucose 92 mg/dL (74-99); Non-African American GFR(CKD) 83 (>60 ml/min/1.73 sqM); Potassium 3.8 mmol/L (3.5-5.1); Sodium 139 mmol/L (137-145); Total Bilirubin 0.8 mg/dL (0.2-1.3); Total Protein 6.4 g/dL (6.3-8.2)
[2020-04-19] MEDS ORDERED: MIDAZOLAM 2 MG/2 ML VIAL IVP ONE ×2 (12:10→15:15)
[2020-04-19] MEDS ORDERED: LIDOCAINE 1% INJ 10MG/ML (20 ML MDV) ONE (12:55)
[2020-04-19] MEDS ORDERED: PROPOFOL 10 MG/ML 20 ML VIAL IV ONE (12:55)
[2020-04-19] MEDS ORDERED: fentaNYL (PF) 50 MCG/ML 2 ML AMP ONE (12:55)
[2020-04-19] MEDS ORDERED: ROCURONIUM 10 MG/ML (10 ML VIAL) IV ONE (12:55)
[2020-04-19] MEDS ORDERED: NEOSTIGMINE 1 MG/ML 10 ML VIAL ONE (12:55)
[2020-04-19] MEDS ORDERED: PHENYLEPHRINE 10 MG/ML VIAL ONE (12:55)
[2020-04-19] MEDS ORDERED: GLYCOPYRROLATE 0.2 MG/ML 2 ML VIAL ONE (12:55)
[2020-04-19] MEDS ORDERED: ALBUTEROL INHALER 60 PUFF/8 GM INHALER (MHU) INHALATION ONE (12:55)
[2020-04-19] MEDS ORDERED: SUCCINYLCHOLINE CHLORIDE 100 MG/5 ML SYR IV ONE (12:55)
[2020-04-19] MEDS ORDERED: LIDOCAINE 1%-EPI 1:100,000 20 ML VIAL SQ ONE (13:23)
[2020-04-19] MEDS ORDERED: LACTATED RINGERS 1,000 ML IV ONE (14:33)
--- NOTE | 2020-04-19 14:48 | P.OP ---
Date of Procedure: 04/19/20 Description of Procedure: SURGEON: LUCIO SPARKS MD PREOPERATIVE DIAGNOSES: 1. Symptomatic paraesophageal diaphragmatic hiatal hernia. 2. Gastroesophageal reflux disease. 3. Hypertensive heart disease 4. Generalized anxiety disorder 5. Depressive disorder 6. Esophageal dysmotility with gastroesophageal Junction obstruction 7. Angina 8. Chronic obstructive pulmonary disease with asthma POSTOPERATIVE DIAGNOSES: 1. Symptomatic paraesophageal diaphragmatic hiatal hernia 6 x 5 cm, with i ncarceration 2. Gastroesophageal reflux disease. 3. Hypertensive heart disease 4. Generalized anxiety disorder 5. Depressive disorder 6. Esophageal dysmotility with gastroesophageal Junction obstruction 7. Angina 8. Chronic obstructive pulmonary disease with asthma OPERATION: 1. Robotic-assisted da Ramsey Xi laparoscopic repair of incarcerated paraesophageal hiatal hernia, 6 x 5 cm, with [place] Biopatch A 8 x 8 cm. 2. Intraoperative esophagogastroduodenoscopy 3. Placement of 56-Irish bougie for esophageal dysmotility ANESTHESIA: General with local anesthetic. ESTIMATED BLOOD LOSS: 5 mL SPECIMENS REMOVED: None COMPLICATIONS: None. Condition: stable Disposition: floor FINDINGS: 1. Midline incarcerated paraesophageal hiatal hernia 6 x 5 cm, type 3 with over 40% incarceration of the proximal stomach and cardia 2. Intraoperative upper endoscopy confirms complete closure of hiatal hernia from Hill grade 4 to Hill grade 1 3. Intraesophageal length over 3 cm INDICATIONS: The patient is a 70-year-old female who presents withcgastroesophageal reflux disease poorly controlled despite medications, dyspnea, chronic obstructive pulmonary disease and a symptomatic diaphragmatic hiatal hernia. Preoperative workup including upper endoscopy demonstrated a sliding hiatal hernia. She completed an esophageal manometry. Given the severity of symptoms, she had elected for surgical intervention. Benefits and risks including bleeding, infection, recurrence, dysphagia, injury to the lung, need for further surgery was described at length. Informed consent was obtained. DESCRIPTION: The patient was brought into the operating room and placed in supine position. Preoperatively she had received heparin subcutaneously for DVT prophylaxis. After general induction, the abdomen was prepped and draped in standard sterile fashion. The patient had previously voided prior to coming to the operating room. Ioban draping was placed along the abdomen. A timeout protocol was confirmed with the surgical team, for which the patient's name, procedure to be performed including DVT prophylaxis with bilateral SCDs, and preoperative antibiotics were also confirmed. A robotic da Ramsey Xi system was prepped and primed. At 12 cm from the xiphoid to just below the umbilicus, proposed port sites were marked with indelible marker along the left axillary line, left mid-clavicular line with each ports were marked 10 cm from each other. A 5 mm 0 degrees laparoscopic trocar entry was performed along the left upper quadrant. The abdomen was insufflated to 15 mmHg pressure was tolerated well. Diagnostic laparoscopy demonstrated no injury to bowel, viscera, or mesentery. No injury had occurred to the small bowel or viscera. The liver was smooth consistent with high-protein low-carb diet. Previous trochar sites from cholecystectomy were used. Next, one 8 mm robotic port was placed along the right upper abdomen. An 8-mm port was were placed along the right lateral lateral abdominal wall. The camera 8-mm port was maintained along the epigastrium. Another 12 mm port was placed along the left upper abdominal wall after exchanging the 5 mm port. Please note that the ports were placed at least 20 cm away from the target anatomy. Care was taken to check that each robotic arm were safely away from collision with the bed or the patient. At the epigastrium, a medium sized Fela liver retractor was placed under direct visualization with the Iron Stemming Machine Operator placed under the right shoulder of the patient. All robotic arms were used. The patient was repositioned in reverse Trendelenburg position at 21-degrees after lowering the bed. The robot was docked above the right side of the patient. Using a grasper for arm 3, a grasper for arm 1, including vessel sealer for arm 2, the robotic system was docked and primed as described. Instruments were interchanged by the rn first assistant. I had sat at the console. The gastrohepatic ligament was cleaved using a vessel sealer. Next, the phrenoesophageal ligament was mobilized and the distal esophagus was mobilized circumferentially. The left and right crura was identified. Circumferentially, the hernia sac was excised and brought into the peritoneal cavity. Moderate dissection into the mediastinum was performed to release the esophagus into the abdominal cavity. The paraesophageal hiatal hernia sac was also incised and divided from the esophagus. Care was taken to avoid any gastrotomy. The measured defect was consistent with 6 cm axial length and 5 cm in with reduction of 40% of the incarcerated proximal stomach. After dissection, the distal esophagus of 3 cm was brought into the abdominal cavity. Once the hiatus and crura was dissected, 2-0 VLOC nonabsorbable suture was placed to reapproximate the diaphragmatic hiatus posteriorly. To buttress the repair, a [place] Biopatch A was prepared along the back table and cut in half of a cordero-hole fashion as to reinforce the repair as an underlay. The mesh was placed along the crural repair and tagged using horizontal mattress sutures using 2-0 VLOC. I went to the head of the bed to perform intraoperative esophagogastroduodenoscopy and placement of a 56Fr bougie. The bougie was passed along the posterior oropharynx into the stomach to address pre-existing gastroesophageal junction obstruction for 2 minutes then removed. An Olympus gastroscope was passed through posterior oropharynx. Retroflexion of the scope confirmed a Hill grade 1 lower esophageal valve. A gastric cardia diverticulum was identified. The stomach had been desufflated. No evidence of leaks were found of the esophagus or stomach. The GI tract with desufflated This concluded the endoscopic portion of the case. The robot was undocked from the patient. I re-scrubbed into the case. All instruments and pneumoperitoneum and specimens were evacuated from the abdominal cavity. Incisions were reapproximated using 4-0 Monocryl in an interrupted subcuticular fashion. Liquid glue was applied to the skin. Local anesthetic was infiltrated in all wounds for postop analgesia. At the end of the procedure, needle, sponge, and instrument count was verified correct by the surgical scrub technologist. The patient had tolerated the procedure well and was taken to the postanesthesia unit in stable condition.
[2020-04-19 15:32] LABS: Glucose,Whole Blood 167 mg/dL (75-99)
--- NOTE | 2020-04-19 15:43 | XR ---
EXAMINATION TYPE: XR chest 1V portable DATE OF EXAM: 04/19/2020 COMPARISON: NONE HISTORY: Postop hernia repair, intubated TECHNIQUE: Single frontal view of the chest is obtained. FINDINGS: Endotracheal tube is overlying the tracheal air column in appropriate position. Lung volum es are low and the patient is rotated. No evident pneumothorax or pleural effusion. Right hemidiaphra gm is elevated. Patchy densities present in the retrocardiac region. Heart is enlarged. There is thor acic spondylosis. There are overlying artifacts. IMPRESSION: Left lower lobe atelectasis versus pneumonia, correlate and follow-up as indicated
[2020-04-19] MEDS: HYDROmorphone 0.5 MG/0.5 ML SYRINGE IVP PRN ×2 (15:47→15:58)
[2020-04-19] MEDS ORDERED: diphenhydrAMINE 50 MG/ML 1 ML VIAL IVP PRN (16:59)
[2020-04-19] MEDS ORDERED: NALOXONE 0.4 MG/ML 1 ML VIAL IV PRN (16:59)
[2020-04-19] MEDS: ACETAMINOPHEN ORAL SUSP (PEDS) 3,840 MG/120 ML BOTTLE PO SCH ×2 (18:46→23:23)
[2020-04-19] MEDS: SIMETHICONE 40 MG/0.6 ML DROPS 2,000 MG/30 ML BOTTLE PO SCH (18:49)
[2020-04-19] MEDS: KETOROLAC 15 MG/ML 1 ML VIAL IVP SCH (18:51)
[2020-04-19] MEDS: ONDANSETRON 4 MG/2 ML VIAL IVP SCH (18:51)
[2020-04-19] MEDS ORDERED: ACETAMINOPHEN TAB 325 MG TAB PO SCH (20:00)
[2020-04-19] MEDS ORDERED: SODIUM CHLORIDE 0.9% 1,000 ML IV ONE (20:04)
[2020-04-19] MEDS: ALBUTEROL NEBULIZED 2.5 MG/3 ML INHALATION SCH (20:16)
[2020-04-20] MEDS: ACETAMINOPHEN ORAL SUSP (PEDS) 3,840 MG/120 ML BOTTLE PO SCH ×6 (01:11→23:02)
[2020-04-20] MEDS: KETOROLAC 15 MG/ML 1 ML VIAL IVP SCH ×2 (01:19→06:53)
[2020-04-20] MEDS: SIMETHICONE 40 MG/0.6 ML DROPS 2,000 MG/30 ML BOTTLE PO SCH ×4 (01:20→19:31)
[2020-04-20] MEDS: ONDANSETRON 4 MG/2 ML VIAL IVP SCH ×3 (01:20→13:53)
[2020-04-20] MEDS: LACTATED RINGERS 1,000 ML IV SCH (03:44)
[2020-04-20 05:52] LABS: Basophils % (A) 0 %; Eosinophils % (A) 0 %; HGB 12.9 gm/dL (11.4-16.0); Hypochromasia Slight; Lymphocytes # (A) 1.1 k/uL (1.0-4.8); Lymphocytes % (A) 10 %; MCH 30.3 pg (25.0-35.0); MCHC 32.3 g/dL (31.0-37.0); MCV 93.9 fL (80.0-100.0); Mean Platelet Volume 7.1; Monocytes # (A) 0.5 k/uL (0-1.0); Monocytes % (A) 5 %; Neutrophils % (A) 84 %; Platelet Count 297 k/uL (150-450); RBC 4.26 m/uL (3.80-5.40); RDW 14.6 % (11.5-15.5); WBC 10.7 k/uL (3.8-10.6)
[2020-04-20 06:02] LABS: African American GFR (CKD) >90 (>60 ml/min/1.73 sqM); Anion Gap 4 mmol/L; Blood Urea Nitrogen 21 mg/dL (7-17); Calcium 8.9 mg/dL (8.4-10.2); Carbon Dioxide 28 mmol/L (22-30); Chloride 108 mmol/L (98-107); Magnesium 1.8 mg/dL (1.6-2.3); Non-African American GFR(CKD) 85 (>60 ml/min/1.73 sqM); Phosphorus 4.3 mg/dL (2.5-4.5); Potassium 5.6 mmol/L (3.5-5.1); Sodium 140 mmol/L (137-145)
[2020-04-20] MEDS ORDERED: SODIUM CHLORIDE 0.9% 1,000 ML IV SCH (06:45)
[2020-04-20] MEDS ORDERED: PANTOPRAZOLE 40 MG/10 ML VIAL IVP PRN (07:00)
[2020-04-20] MEDS ORDERED: CHLORHEXIDINE GLUCONATE 15 ML CUP MUCOUS MEM PRN (07:00)
[2020-04-20] MEDS ORDERED: 0.9% NACL WITH KCL 20 MEQ/L 1,000 ML IV SCH (08:00)
[2020-04-20] MEDS ORDERED: lisinopriL 20 MG TAB PO SCH (09:00)
--- NOTE | 2020-04-20 09:01 | XR ---
EXAMINATION TYPE: XR chest 2V DATE OF EXAM: 04/20/2020 COMPARISON: 04/19/2020 TECHNIQUE: PA and lateral views submitted. HISTORY: Cough FINDINGS: There is persistent left lower lobe infiltrate. ET tube is been removed. Density overlying the parame juan josé structures the left likely represents contrast within the esophagus. There is contrast in the st omach. No overt failure or pneumothorax. Arthropathy of the shoulders. No sizable pneumothorax. IMPRESSION: 1. Interval mild improvement in left basilar infiltrate.
[2020-04-20] MEDS: ALBUTEROL NEBULIZED 2.5 MG/3 ML INHALATION SCH ×4 (09:25→21:24)
--- NOTE | 2020-04-20 09:48 | P.PN ---
Subjective Progress Note Date: 04/20/20 CHIEF COMPLAINT: Paraesophageal hiatal hernia with gastroesophageal reflux disease. HISTORY OF PRESENT ILLNESS: The patient is a 70-year-old female with large symptomatic paraesophageal hernia. She is status post repair, 04/19/20. "I feel the difference." She is swallowing well. "I can breathe better." REVIEW OF ORGAN SYSTEMS: No shortness of breath. No chest pain. PHYSICAL EXAM: VITAL SIGNS: Stable GENERAL: Well-developed pleasant and in no acute distress. HEENT: No scleral icterus. Extraocular movements grossly intact. Moist buccal mucosa. NECK: Supple without lymphadenopathy. CHEST: Unlabored respirations. Equal bilateral excursions. CARDIOVASCULAR: Regular rate and rhythm. Distal 2+ pulses. ABDOMEN: Incisions are clean, dry and intact MUSCULOSKELETAL: No clubbing, cyanosis, or edema. SKIN: Well-perfused. Good skin turgor. STUDIES: Esophagram reviewed no obstruction or leak. CHEST XRAY: Atelectasis LABS: Potassium over 5.2 ASSESSMENT: 1. Diaphragmatic paraesophageal hiatal hernia with severe gastroesophageal reflux disease. 2. Hyperkalemia PLAN: 1. She is doing very well. 2. Discharge instructions reviewed. 3. Pulmonary toilet for discharge home. Objective - Vital Signs Vital signs: Vital Signs Temp 98.8 F 04/20/20 09:10 Pulse 106 H 04/20/20 09:10 Resp 20 04/20/20 09:10 BP 129/78 04/20/20 09:10 Pulse Ox 93 L 04/20/20 09:10 Intake & Output 04/19/20 04/20/20 04/20/20 18:59 06:59 18:59 Intake Total 1450 Output Total 5 Balance 1445 Weight 64.3 kg Intake: IV 1450 Output: Estimated Blood Loss 5 Other: Voiding Method Toilet - Labs CBC & Chem 7: 04/20/20 05:31 04/20/20 05:31 Labs: Abnormal Lab Results - Last 24 Hours (Table) 04/19/20 04/19/20 04/20/20 Range/Units 11:13 15:29 05:31 WBC 10.7 H (3.8-10.6) k/uL Neutrophils # 9.0 H (1.3-7.7) k/uL Potassium (3.5-5.1) mmol/L Chloride (98-107) mmol/L BUN 19 H (7-17) mg/dL POC Glucose (mg/dL) 167 H (75-99) mg/dL AST 37 H (14-36) U/L 04/20/20 Range/Units 05:31 WBC (3.8-10.6) k/uL Neutrophils # (1.3-7.7) k/uL Potassium 5.6 H (3.5-5.1) mmol/L Chloride 108 H (98-107) mmol/L BUN 21 H (7-17) mg/dL POC Glucose (mg/dL) (75-99) mg/dL AST (14-36) U/L
--- NOTE | 2020-04-20 09:54 | P.DS ---
Providers Date of admission: 04/19/2020 Expected date of discharge: 04/20/20 Attending physician: Nydia Tovar Primary care physician: Evan Liu - Discharge Diagnosis(es) (1) Hiatal hernia with GERD and esophagitis Current Visit: Yes Status: Acute (2) Mass of gastroesophageal junction Current Visit: Yes Status: Acute (3) Paraesophageal hernia with obstruction but no gangrene Current Visit: Yes Status: Acute Hospital Course: POSTOPERATIVE DIAGNOSES: 1. Symptomatic paraesophageal diaphragmatic hiatal hernia 6 x 5 cm, with incarceration 2. Gastroesophageal reflux disease. 3. Hypertensive heart disease 4. Generalized anxiety disorder 5. Depressive disorder 6. Esophageal dysmotility with gastroesophageal Junction obstruction 7. Angina 8. Chronic obstructive pulmonary disease with asthma INDICATIONS: The patient is a 70-year-old female who presented with large symptomatic paraesophageal hiatal hernia. Immediate post-op she had difficulty of arousal from anesthesia. "I feel great!" She feels very well this morning. Esophagram reviewed without obstruction. Post hiatal hernia diet reviewed. Discharge instructions reviewed. Stable for discharge. Procedures: OPERATION: 1. Robotic-assisted da Ramsey Xi laparoscopic repair of incarcerated paraesophageal hiatal hernia, 6 x 5 cm, with [place] Biopatch A 8 x 8 cm. 2. Intraoperative esophagogastroduodenoscopy 3. Placement of 56-Kazakh bougie for esophageal dysmotility ANESTHESIA: General with local anesthetic. ESTIMATED BLOOD LOSS: 5 mL SPECIMENS REMOVED: None COMPLICATIONS: None. Condition: stable Disposition: floor FINDINGS: 1. Midline incarcerated paraesophageal hiatal hernia 6 x 5 cm, type 3 with over 40% incarceration of the proximal stomach and cardia 2. Intraoperative upper endoscopy confirms complete closure of hiatal hernia from Hill grade 4 to Hill grade 1 3. Intraesophageal length over 3 cm Patient Condition at Discharge: Good Plan - Discharge Summary Discharge Rx Participant: No New Discharge Prescriptions: New bisacodyL [Dulcolax] 5 mg PO DAILY PRN #10 tablet.dr PRN Reason: Constipation Simethicone 40 mg/0.6 ml Drops [Mylicon Drops] 40 mg PO PCHS PRN #30 ml PRN Reason: Gas Acetaminophen Oral Susp [Tylenol Oral Susp] 500 mg PO Q4-6H PRN #400 ml PRN Reason: Pain Ondansetron Odt [Zofran Odt] 4 mg PO Q8HR PRN #9 tab PRN Reason: Nausea Continue ALPRAZolam [Xanax] 0.25 mg PO HS PRN PRN Reason: Anxiety Vitamin B Complex 1 each PO DAILY Multivitamin [Multivitamins Adult Gummies] 1 each PO DAILY lisinopriL [Zestril] 20 mg PO DAILY Estradiol 0.5 mg PO DAILY Calcium Carbonate [Calcium] 600 mg PO DAILY Atorvastatin [Lipitor] 20 mg PO DAILY guaiFENesin [Mucinex] 600 mg PO DAILY Discontinued Omeprazole [PriLOSEC] 40 mg PO DAILY #14 cap Sucralfate [Carafate] 1 gm PO DAILY Discharge Medication List ALPRAZolam [Xanax] 0.25 mg PO HS PRN 11/01/18 [History] Calcium Carbonate [Calcium] 600 mg PO DAILY 11/01/18 [History] Estradiol 0.5 mg PO DAILY 11/01/18 [History] Multivitamin [Multivitamins Adult Gummies] 1 each PO DAILY 11/01/18 [History] Vitamin B Complex 1 each PO DAILY 11/01/18 [History] lisinopriL [Zestril] 20 mg PO DAILY 11/01/18 [History] Atorvastatin [Lipitor] 20 mg PO DAILY 04/14/20 [History] guaiFENesin [Mucinex] 600 mg PO DAILY 04/14/20 [History] Acetaminophen Oral Susp [Tylenol Oral Susp] 500 mg PO Q4-6H PRN #400 ml 04/19/20 [Rx] Ondansetron Odt [Zofran Odt] 4 mg PO Q8HR PRN #9 tab 04/19/20 [Rx] Simethicone 40 mg/0.6 ml Drops [Mylicon Drops] 40 mg PO PCHS PRN #30 ml 04/19/20 [Rx] bisacodyL [Dulcolax] 5 mg PO DAILY PRN #10 tablet. 04/19/20 [Rx] Follow up Appointment(s)/Referral(s): Nydia Tovar MD [STAFF PHYSICIAN] - 04/27/20 Patient Instructions/Handouts: Laparoscopic Hiatal Hernia Repair (DC) Activity/Diet/Wound Care/Special Instructions: HOLD LISINOPRIL AND RE-START SundayAPR 23 Liquid diet only for 2 weeks until Feb1. No lifting over 4 pounds in 4 weeks, Feb 18 May shower No soaking in bath tubs for 2 weeks,until Feb1. Please notify your surgeon if you develop nausea and vomiting including new onset of abdominal pain. Please ambulate at all times. Use Tylenol and ibuprofen or Aleve scheduled for the next 24-48 hours for best pain relief. Use ice along incisions for the today to prevent swelling. Please open, cut, crush pills larger than the size of a tic tack No carbonated beverages. No straws. Do not remove scopolamine patch for 3 days, if present Discharge Disposition: HOME SELF-CARE
--- NOTE | 2020-04-20 09:57 | FL ---
EXAMINATION TYPE: FL esophagus cervic/pharynx DATE OF EXAM: 04/20/2020 COMPARISON: None HISTORY: Post Wild fundoplication TECHNIQUE: Single contrast technique is utilized to evaluate the gastroesophageal junction post surge ry FINDINGS: No free air is identified under the diaphragms on fluoroscopy. The esophagus visualized deandra ears normal. There is narrowing through the gastroesophageal junction. However, no hesitancy is evide nt passing through this region. No extravasation of contrast is identified on fluoroscopy or overhead radiographs. IMPRESSION: 1. No extravasation of contrast post Wild fundoplication.
[2020-04-20] MEDS: ENOXAPARIN 30 MG/0.3 ML SYRINGE SQ SCH (10:41)
--- NOTE | 2020-04-20 12:27 | P.PN ---
Progress Note - Text Progress Note Date: 04/20/20 Notified that patient is not using her incentive spirometer. She is not ambulating. She felt dyspneic. Discharge held pending new pulmonary consultation. Studies reviewed.
[2020-04-20] MEDS ORDERED: FUROSEMIDE 10 MG/ML 4 ML VIAL IV STA (13:20)
[2020-04-20 13:35] VITALS: BMI 28.6
[2020-04-20] MEDS ORDERED: FUROSEMIDE 40 MG TAB PO STA (13:44)
--- NOTE | 2020-04-20 14:12 | P.CNPUL ---
History of Present Illness Consult date: 04/20/20 Requesting physician: Nydia Tovar Chief complaint: acute hypoxic respiratory failure History of present illness: 70-year-old white female patient with past medical history of diaphragmatic paraesophageal hiatal hernia with severegastroesophageal reflux, chronic bronchial asthma, mild intermittent, hypertension, hyperlipidemia, lifetime nonsmoker, who had a robotic-assisted laparoscopic repair of incarcerated pa raesophageal hernia, and intraoperative EGD on 04/19/2020. postoperative chest x-ray showed a left lower lobe atelectasis. patient developed hypoxemia, she was given supplemental oxygen, she is currently on 2 L of oxygen, with a pulse ox of 94-95%, she's been afebrile overnight, vital signs have been stable, hemodynamically stable, no wheezing. no chest pain, no cough or congestion, patient states she does not feel short of breath. patient is not on any maintenance or as needed inhalers on a regular basis for her history of asthma. patient's oxygen was removed, and patient's O2 sat is currently 93-94%. Breathing pretty calm and comfortable, patient would really like to go home. Esophagram showed no extravasation of contrast Review of Systems All systems: negative Constitutional: Denies chills, Denies fever Eyes: denies blurred vision, denies pain Ears, nose, mouth and throat: Denies headache, Denies sore throat Cardiovascular: Denies chest pain, Denies shortness of breath Respiratory: Reports dyspnea, Denies cough Gastrointestinal: Denies abdominal pain, Denies diarrhea, Denies nausea, Denies vomiting Genitourinary: Denies dysuria, Denies hematuria Musculoskeletal: Denies myalgias Integumentary: Denies pruritus, Denies rash Neurological: Denies numbness, Denies weakness Psychiatric: Denies anxiety, Denies depression Endocrine: Denies fatigue, Denies weight change Past Medical History Past Medical History: Asthma, Chest Pain / Angina, GERD/Reflux, Hyperlipidemia, Hypertension Additional Past Medical History / Comment(s): Hiatal Hernia, hx 2 ulcers in stomach; Bursitis both knees. Hx pancreatitis, SOB w/exertion due to hernia History of Any Multi-Drug Resistant Organisms: None Reported Past Surgical History: Back Surgery, Heart Catheterization, Hysterectomy, Orthopedic Surgery, Tonsillectomy Additional Past Surgical History / Comment(s): Back surgery with hardware, L carpal tunnel, L foot surgery, Past Anesthesia/Blood Transfusion Reactions: Previous Problems w/ Anesthesia, Motion Sickness, Postoperative Nausea & Vomiting (PONV) Additional Past Anesthesia/Blood Transfusion Reaction / Comment(s): was told stopped breathing during EGD Past Psychological History: Depression Additional Psychological History / Comment(s): xanax at night Smoking Status: Never smoker Past Alcohol Use History: Occasional Past Drug Use History: None Reported - Past Family History Mother Family Medical History: No Reported History Medications and Allergies Home Medications Medication Instructions Recorded Confirmed Type ALPRAZolam [Xanax] 0.25 mg PO HS PRN 11/01/18 04/19/20 History Calcium Carbonate [Calcium] 600 mg PO DAILY 11/01/18 04/14/20 History Estradiol 0.5 mg PO DAILY 11/01/18 04/19/20 History Multivitamin [Multivitamins Adult 1 each PO DAILY 11/01/18 04/14/20 History Gummies] Vitamin B Complex 1 each PO DAILY 11/01/18 04/14/20 History lisinopriL [Zestril] 20 mg PO DAILY 11/01/18 04/14/20 History Atorvastatin [Lipitor] 20 mg PO DAILY 04/14/20 04/14/20 History guaiFENesin [Mucinex] 600 mg PO DAILY 04/14/20 04/19/20 History Acetaminophen Oral Susp [Tylenol 500 mg PO Q4-6H PRN #400 ml 04/19/20 Rx Oral Susp] Ondansetron Odt [Zofran Odt] 4 mg PO Q8HR PRN #9 tab 04/19/20 Rx Simethicone 40 mg/0.6 ml Drops 40 mg PO PCHS PRN #30 ml 04/19/20 Rx [Mylicon Drops] bisacodyL [Dulcolax] 5 mg PO DAILY PRN #10 tablet. 04/19/20 Rx Allergies Allergy/AdvReac Type Severity Reaction Status Date / Time No Known Allergies Allergy Unverified 04/19/20 18:21 Physical Exam Vitals: Vital Signs Temp Pulse Pulse Pulse Resp BP BP 04/20/20 12:22 20 04/20/20 12:15 98.2 F 98 20 117/76 04/20/20 12:10 102 H 20 04/20/20 11:44 90 04/20/20 11:35 95 04/20/20 11:15 98 20 04/20/20 11:10 106 H 20 04/20/20 10:41 106 H 20 04/20/20 09:10 98.8 F 106 H 20 129/78 04/20/20 01:29 94 18 152/78 04/19/20 23:22 81 18 119/71 04/19/20 19:10 78 16 95/63 04/19/20 18:42 04/19/20 18:40 84 16 102/68 04/19/20 18:10 91 16 101/68 04/19/20 17:55 79 16 99/58 04/19/20 17:54 20 04/19/20 17:40 86 16 100/66 04/19/20 17:25 98.1 F 86 20 123/66 04/19/20 17:01 78 16 98/54 04/19/20 16:59 04/19/20 16:45 74 16 98/56 04/19/20 16:30 81 16 97/50 04/19/20 16:16 84 16 97/55 04/19/20 16:07 04/19/20 16:00 84 16 97/53 04/19/20 15:47 87 16 120/65 04/19/20 15:40 20 04/19/20 15:30 95 14 100/65 04/19/20 15:15 90 14 136/70 04/19/20 15:02 97.7 F 108 H 20 161/95 Pulse Ox 04/20/20 12:22 04/20/20 12:15 94 L 04/20/20 12:10 94 L 04/20/20 11:44 04/20/20 11:35 95 04/20/20 11:15 94 L 04/20/20 11:10 89 L 04/20/20 10:41 04/20/20 09:10 93 L 04/20/20 01:29 96 04/19/20 23:22 96 04/19/20 19:10 93 L 04/19/20 18:42 94 L 04/19/20 18:40 95 04/19/20 18:10 95 04/19/20 17:55 92 L 04/19/20 17:54 04/19/20 17:40 92 L 04/19/20 17:25 94 L 04/19/20 17:01 94 L 04/19/20 16:59 94 L 04/19/20 16:45 93 L 04/19/20 16:30 94 L 04/19/20 16:16 96 04/19/20 16:07 95 04/19/20 16:00 97 04/19/20 15:47 96 04/19/20 15:40 98 04/19/20 15:30 92 L 04/19/20 15:15 91 L 04/19/20 15:02 95 Intake and Output 04/19/20 04/20/20 04/20/20 22:59 06:59 14:59 Intake Total 400 Balance 400 Intake: IV 400 Other: Voiding Method Toilet # Voids 1 Weight 64.3 kg 64.3 kg GENERAL EXAM: Alert, very pleasant, 70-year-old white female, on 2 L of a pulse ox of 94% comfortable in no apparent distress. HEAD: Normocephalic/atraumatic. EYES: Normal reaction of pupils, equal size. Conjunctiva pink, sclera white. NOSE: Clear with pink turbinates. THROAT: No erythema or exudates. NECK: No masses, no JVD, no thyroid enlargement, no adenopathy. CHEST: No chest wall deformity. Symmetrical expansion. LUNGS: Equal air entry with basilar fine crackles CVS: Regular rate and rhythm, normal S1 and S2, no gallops, no murmurs, no rubs ABDOMEN: Soft, nontender. No hepatosplenomegaly, normal bowel sounds, no guarding or rigidity. EXTREMITIES: No clubbing, no edema, no cyanosis, 2+ pulses and upper and lower extremities. MUSCULOSKELETAL: Muscle strength and tone normal. SPINE: No scoliosis or deformity SKIN: No rashes CENTRAL NERVOUS SYSTEM: Alert and oriented -3. No focal deficits, tone is normal in all 4 extremities. PSYCHIATRIC: Alert and oriented -3. Appropriate affect. Intact judgment and insight. Results - Laboratory Findings CBC and BMP: 04/20/20 05:31 04/20/20 05:31 Abnormal lab findings: Abnormal Labs 04/19/20 04/19/20 04/20/20 11:13 15:29 05:31 WBC 10.7 H Neutrophils # 9.0 H Potassium Chloride BUN 19 H POC Glucose (mg/dL) 167 H AST 37 H 04/20/20 05:31 WBC Neutrophils # Potassium 5.6 H Chloride 108 H BUN 21 H POC Glucose (mg/dL) AST - Diagnostic Findings Chest x-ray: report reviewed, image reviewed Assessment and Plan Plan: assessment: #1. Mild acute hypoxic respiratory failure likely related to microatelectasis, chest x-ray showed left lower lobe atelectasis, doubt pneumonia #2. Mild intermittent bronchial asthma, history of, currently inactive #3. Paraesophageal diaphragmatic hiatal hernia, with incarceration, status post robotic-assisted laparoscopic repair, postoperative day one #4. GERD/reflux #5. Hypertension #6. Generalized anxiety disorder #7. Depressive disorder Plan: Hep-Lock IV fluids, chest x-rays have been reviewed showing left lower lobe atelectasis, doubt possibility of pneumonia, no fever no chills, no cough, no wheezing, her asthma seems to be stable at this time, patient denies any dyspnea, we'll give the patient 40 mg of Lasix by mouth, pulse ox was 93%, will continue to monitor her on room air to make sure her oxygen remains stable above or at 90%. Patient remains stable and if her oxygen remains stable she may be considered for discharge later today I performed a history & physical examination of the patient and discussed their management with my nurse practitioner, Shirin Maddox. I reviewed the nurse practitioner's note and agree with the documented findings and plan of care. Lung sounds are positive for fine crackles at the bases. The findings and the impression was discussed with the patient. I attest to the documentation by the nurse practitioner. Time with Patient: Greater than 30
[2020-04-20] MEDS ORDERED: TRIMETHOBENZAMIDE 100 MG/ML 2 ML VIAL IM PRN (16:35)
[2020-04-20] MEDS ORDERED: ALPRAZolam 0.25 MG TAB PO PRN (18:57)
[2020-04-21] MEDS: LACTATED RINGERS 1,000 ML IV SCH (00:42)
[2020-04-21] MEDS: SIMETHICONE 40 MG/0.6 ML DROPS 2,000 MG/30 ML BOTTLE PO SCH ×3 (01:26→12:39)
[2020-04-21] MEDS: ACETAMINOPHEN ORAL SUSP (PEDS) 3,840 MG/120 ML BOTTLE PO SCH ×4 (01:30→12:40)
[2020-04-21 06:27] LABS: African American GFR (CKD) >90 (>60 ml/min/1.73 sqM); Anion Gap 3 mmol/L; Blood Urea Nitrogen 16 mg/dL (7-17); Calcium 8.8 mg/dL (8.4-10.2); Carbon Dioxide 27 mmol/L (22-30); Chloride 105 mmol/L (98-107); Glucose 92 mg/dL (74-99); Non-African American GFR(CKD) 79 (>60 ml/min/1.73 sqM); Potassium 4.5 mmol/L (3.5-5.1); Sodium 135 mmol/L (137-145)
[2020-04-21] MEDS: ONDANSETRON 4 MG/2 ML VIAL IVP SCH (07:42)
[2020-04-21] MEDS: ALBUTEROL NEBULIZED 2.5 MG/3 ML INHALATION SCH ×2 (08:00→12:17)
[2020-04-21] MEDS ORDERED: bisacodyL 5 MG TABLET.DR PO PRN (08:00)
[2020-04-21] MEDS: ENOXAPARIN 30 MG/0.3 ML SYRINGE SQ SCH (08:18)
[2020-04-21 08:50] VITALS: BP 126/83; RESP 24; TEMP 97.6
[2020-04-21 10:08] LABS: Basophils # (A) 0.1 k/uL (0-0.2); Basophils % (A) 1 %; Eosinophils # (A) 0.2 k/uL (0-0.7); Eosinophils % (A) 2 %; HCT 38.9 % (34.0-46.0); HGB 12.8 gm/dL (11.4-16.0); Hypochromasia Slight; Lymphocytes # (A) 2.7 k/uL (1.0-4.8); Lymphocytes % (A) 28 %; MCH 30.8 pg (25.0-35.0); MCHC 32.8 g/dL (31.0-37.0); MCV 94.1 fL (80.0-100.0); Mean Platelet Volume 7.9; Monocytes # (A) 0.6 k/uL (0-1.0); Monocytes % (A) 7 %; Neutrophils # (A) 5.9 k/uL (1.3-7.7); Neutrophils % (A) 62 %; Platelet Count 263 k/uL (150-450); RBC 4.13 m/uL (3.80-5.40); RDW 14.7 % (11.5-15.5); WBC 9.5 k/uL (3.8-10.6)
[2020-04-21 12:43] VITALS: PULSE 81
--- NOTE | 2020-04-21 12:58 | P.PN ---
Subjective Progress Note Date: 04/21/20 70-year-old white female patient with past medical history of diaphragmatic paraesophageal hiatal hernia with severegastroesophageal reflux, chronic bronchial asthma, mild intermittent, hypertension, hyperlipidemia, lifetime nonsmoker, who had a robotic-assisted laparoscopic repair of incarcerated paraesophageal hernia, and intraoperative EGD on 04/19/2020. postoperative chest x-ray showed a left lower lobe atelectasis. patient developed hypoxemia, she was given supplemental oxygen, she is currently on 2 L of oxygen, with a pulse ox of 94-95%, she's been afebrile overnight, vital signs have been stable, hemodynamically stable, no wheezing. no chest pain, no cough or congestion, patient states she does not feel short of breath. patient is not on any maintenance or as needed inhalers on a regular basis for her history of asthma. patient's oxygen was removed, and patient's O2 sat is currently 93-94%. Breathing pretty calm and comfortable, patient would really like to go home. Esophagram showed no extravasation of contrast On 04/21/2020 patient seen in follow-up. Yesterday her discharge was held related to shortness of breath, and mild hypoxemia, her pulse ox with walking with 89, however at rest her O2 sat is 91-93%, her incentive spirometer effort is 500 today, yesterday we gave the patient a dose of IV Lasix. He has diabetes. She has had no fever or chills, signs have been stable, no pain or discomfort, no complaints of cough or chest discomfort. IV fluids have been hep-locked, she is tolerating oral diet, been ambulating tolerating ambulation well. Objective - Vital Signs Vital signs: Vital Signs Temp 97.6 F 04/21/20 08:15 Pulse 81 04/21/20 12:42 Resp 24 04/21/20 08:15 BP 126/83 04/21/20 08:15 Pulse Ox 91 L 04/21/20 12:42 Intake & Output 04/20/20 04/21/20 04/21/20 18:59 06:59 18:59 Output Total 50 400 Balance -50 -400 Weight 64.3 kg Output: Urine 50 400 Other: Voiding Method Toilet # Voids 1 1 # Bowel Movements 1 - Exam GENERAL EXAM: Alert, very pleasant, 70-year-old white female, on room air with pulse ox of 91% comfortable in no apparent distress. HEAD: Normocephalic/atraumatic. EYES: Normal reaction of pupils, equal size. Conjunctiva pink, sclera white. NOSE: Clear with pink turbinates. THROAT: No erythema or exudates. NECK: No masses, no JVD, no thyroid enlargement, no adenopathy. CHEST: No chest wall deformity. Symmetrical expansion. LUNGS: Equal air entry with basilar fine crackles CVS: Regular rate and rhythm, normal S1 and S2, no gallops, no murmurs, no rubs ABDOMEN: Soft, nontender. No hepatosplenomegaly, normal bowel sounds, no guarding or rigidity. EXTREMITIES: No clubbing, no edema, no cyanosis, 2+ pulses and upper and lower extremities. MUSCULOSKELETAL: Muscle strength and tone normal. SPINE: No scoliosis or deformity SKIN: No rashes CENTRAL NERVOUS SYSTEM: Alert and oriented -3. No focal deficits, tone is normal in all 4 extremities. PSYCHIATRIC: Alert and oriented -3. Appropriate affect. Intact judgment and insight. - Labs CBC & Chem 7: 04/21/20 05:49 04/21/20 05:49 Labs: Abnormal Lab Results - Last 24 Hours (Table) 04/21/20 Range/Units 05:49 Sodium 135 L (137-145) mmol/L Assessment and Plan Plan: assessment: #1. Mild acute hypoxic respiratory failure likely related to microatelectasis, chest x-ray showed left lower lobe atelectasis, doubt pneumonia #2. Mild intermittent bronchial asthma, history of, currently inactive #3. Paraesophageal diaphragmatic hiatal hernia, with incarceration, status post robotic-assisted laparoscopic repair, postoperative day one #4. GERD/reflux #5. Hypertension #6. Generalized anxiety disorder #7. Depressive disorder Plan: No worsening dyspnea, no cough, no fever or chills, vital signs are stable, patient is on room air, her pulse ox is 90-91 at rest and 89 with ambulation, and this is acceptable. Continue encouraging deep breathing and coughing and incentive spirometry use. She may contact the pulmonary office as needed for her pulmonary needs, she stable for discharge home from pulmonary perspective. I performed a history & physical examination of the patient and discussed their management with my nurse practitioner, Shirin Maddox. I reviewed the nurse practitioner's note and agree with the documented findings and plan of care. Lung sounds are positive for fine crackles at the bases. The findings and the impression was discussed with the patient. I attest to the documentation by the nurse practitioner. Time with Patient: Less than 30
--- NOTE | 2020-04-21 13:09 | P.PN ---
Subjective Progress Note Date: 04/21/20 CHIEF COMPLAINT: Paraesophageal hiatal hernia with gastroesophageal reflux disease. HISTORY OF PRESENT ILLNESS: The patient is a 70-year-old female with large symptomatic paraesophageal hernia. She is status post repair, 04/19/20. She had an acute event yesterday with dyspnea secondary to noncompliance, atelectasis postoperative. Patient seen by pulmonary with diuretic given. Patient compliant with care today. Patient cleared from pulmonary for discharge. REVIEW OF ORGAN SYSTEMS: Shortness of breath improved. No chest pain. PHYSICAL EXAM: VITAL SIGNS: Stable GENERAL: Well-developed pleasant and in no acute distress. HEENT: No scleral icterus. Extraocular movements grossly intact. Moist buccal mucosa. NECK: Supple without lymphadenopathy. CHEST: Unlabored respirations. Equal bilateral excursions. CARDIOVASCULAR: Regular rate and rhythm. Distal 2+ pulses. ABDOMEN: Incisions are clean, dry and intact MUSCULOSKELETAL: No clubbing, cyanosis, or edema. SKIN: Well-perfused. Good skin turgor. LABS: Potassium and WBC within normal limits ASSESSMENT: 1. Diaphragmatic paraesophageal hiatal hernia with severe gastroesophageal reflux disease. 2. Noncompliance postoperative care PLAN: 1. Patient clinically improved from yesterday. 2. Stable for discharge Objective - Vital Signs Vital signs: Vital Signs Temp 97.6 F 04/21/20 08:15 Pulse 81 04/21/20 12:42 Resp 24 04/21/20 08:15 BP 126/83 04/21/20 08:15 Pulse Ox 91 L 04/21/20 12:42 Intake & Output 04/20/20 04/21/20 04/21/20 18:59 06:59 18:59 Intake Total 540 Output Total 50 400 Balance -50 -400 540 Weight 64.3 kg Intake: Oral 540 Output: Urine 50 400 Other: Voiding Method Toilet # Voids 1 1 2 # Bowel Movements 1 - Labs CBC & Chem 7: 04/21/20 05:49 04/21/20 05:49 Labs: Abnormal Lab Results - Last 24 Hours (Table) 04/21/20 Range/Units 05:49 Sodium 135 L (137-145) mmol/L Assessment and Plan (1) Hiatal hernia with GERD and esophagitis Current Visit: Yes Status: Acute Code(s): K44.9 - DIAPHRAGMATIC HERNIA WITHOUT OBSTRUCTION OR GANGRENE; K21.00 - GASTRO-ESOPHAGEAL REFLUX DIS WITH ESOPHAGITIS, WITHOUT BLEED SNOMED Code(s): 012638897 (2) Mass of gastroesophageal junction Current Visit: Yes Status: Acute Code(s): K31.89 - OTHER DISEASES OF STOMACH AND DUODENUM SNOMED Code(s): 013277862 (3) Paraesophageal hernia with obstruction but no gangrene Current Visit: Yes Status: Acute Code(s): K44.0 - DIAPHRAGMATIC HERNIA WITH OBSTRUCTION, WITHOUT GANGRENE SNOMED Code(s): 061664153
== END 2020-04-21 14:21 | disposition home or self-care (01) | DRG 326 ==
LOC: OR 10:36 → 6PED 15:27 → OR 16:59
PROVIDERS: ADMIT Surgery Plastic and Reconstructive Surgery; ATTEND Surgery Plastic and Reconstructive Surgery
PROC: 0BH17EZ Insertion of Endotracheal Airway into Trachea, Via Natural or Artificial Opening (ICD-10-PCS; 2020-04-19)
PROC: 5A1935Z Respiratory Ventilation, Less than 24 Consecutive Hours (ICD-10-PCS; 2020-04-19)
PROC: 0D758DZ Dilation of Esophagus with Intraluminal Device, Via Natural or Artificial Opening Endoscopic (ICD-10-PCS; principal; 2020-04-19 11:55)
PROC: 0BUT4JZ Supplement Diaphragm with Synthetic Substitute, Percutaneous Endoscopic Approach (ICD-10-PCS; principal; 2020-04-19 11:55)
PROC: 0DJ08ZZ Inspection of Upper Intestinal Tract, Via Natural or Artificial Opening Endoscopic (ICD-10-PCS; principal; 2020-04-19 11:55)
PROC: 8E0W4CZ Robotic Assisted Procedure of Trunk Region, Percutaneous Endoscopic Approach (ICD-10-PCS; principal; 2020-04-19 11:55)
DX: K44.0 Diaphragmatic hernia with obstruction, without gangrene (principal); J96.01 Acute respiratory failure with hypoxia; J98.11 Atelectasis; K21.00 Gastro-esophageal reflux disease with esophagitis, without bleeding; E78.5 Hyperlipidemia, unspecified; E11.9 Type 2 diabetes mellitus without complications; E87.5 Hyperkalemia; F32.9 Major depressive disorder, single episode, unspecified; F41.1 Generalized anxiety disorder; I11.9 Hypertensive heart disease without heart failure; J44.9 Chronic obstructive pulmonary disease, unspecified; K22.4 Dyskinesia of esophagus; K31.89 Other diseases of stomach and duodenum; Z90.710 Acquired absence of both cervix and uterus; Z87.11 Personal history of peptic ulcer disease; Z79.899 Other long term (current) drug therapy; Z91.19 Patient's noncompliance with other medical treatment and regimen
CPT/HCPCS: 71045; 71046; 74210; 80048; 80051; 80053; 82310; 82565; 83735; 84100; 84520; 85025; 94002

== ENCOUNTER 2020-08-24 19:23 | Inpatient (IN) | payer MEDICARE, OTHER ==
[2020-08-24] MEDS ORDERED: ASPIRIN 81 MG PO STA (19:44)
--- NOTE | 2020-08-24 19:47 | ED ---
SOB HPI - General Chief Complaint: Shortness of Breath Stated Complaint: JESUS Time Seen by Provider: 08/24/20 19:33 Source: patient, family Mode of arrival: wheelchair Limitations: no limitations - History of Present Illness Initial Comments: Twyla is a 70-year-old female who presents to the emergency department today for evaluation of persistent shortness of breath. Patient was admitted to a hospital in [place] in July, she states that she was told she had abnormal labs she underwent cardiac testing including catheterization and was discharged home. Patient is not a great historian. Patient reports that since that time she's had continued worsening shortness of breath. She is developed swelling of her lower extremities. She denies any fevers or chills. She has received her COVID-19 vaccines. - Related Data Home Medications Medication Instructions Recorded Confirmed ALPRAZolam [Xanax] 0.25 mg PO BID 11/01/18 08/24/20 Multivitamin [Multivitamins Adult 1 tab PO DAILY 11/01/18 08/24/20 Gummies] Atorvastatin [Lipitor] 20 mg PO DAILY 04/14/20 08/24/20 Ferrous Sulfate [Feosol] 325 mg PO DAILY 08/24/20 08/24/20 Fexofenadine/Pseudoephedrine 1 tab PO DAILY 08/24/20 08/24/20 [Annalee-D 24 Hour Tablet] Furosemide [Lasix] 20 mg PO DAILY 08/24/20 08/24/20 Losartan Potassium [Cozaar] 25 mg PO DAILY 08/24/20 08/24/20 Metoprolol Tartrate [Lopressor] 25 mg PO BID 08/24/20 08/24/20 Montelukast [Singulair] 10 mg PO DAILY 08/24/20 08/24/20 Omeprazole 20 mg PO BID 08/24/20 08/24/20 Potassium Chloride ER [K-Dur 10] 10 meq PO DAILY 08/24/20 08/24/20 Allergies Allergy/AdvReac Type Severity Reaction Status Date / Time No Known Allergies Allergy Verified 08/24/20 20:20 Review of Systems ROS Statement: Those systems with pertinent positive or pertinent negative responses have been documented in the HPI. ROS Other: All systems not noted in ROS Statement are negative. Past Medical History Past Medical History: Asthma, Chest Pain / Angina, GERD/Reflux, Hyperlipidemia, Hypertension, Myocardial Infarction ([place]) Additional Past Medical History / Comment(s): Hiatal Hernia, hx 2 ulcers in stomach; Bursitis both knees. Hx pancreatitis, SOB w/exertion due to hernia History of Any Multi-Drug Resistant Organisms: None Reported Past Surgical History: Back Surgery, Heart Catheterization, Heart Catheterization With Stent, Hysterectomy, Orthopedic Surgery, Tonsillectomy Additional Past Surgical History / Comment(s): Back surgery with hardware, L carpal tunnel, L foot surgery, Past Anesthesia/Blood Transfusion Reactions: Previous Problems w/ Anesthesia, Motion Sickness, Postoperative Nausea & Vomiting (PONV) Additional Past Anesthesia/Blood Transfusion Reaction / Comment(s): was told s topped breathing during EGD Past Psychological History: Depression Smoking Status: Never smoker Past Alcohol Use History: Occasional Past Drug Use History: None Reported - Past Family History Mother Family Medical History: No Reported History General Exam - General Exam Comments Initial Comments: Physical Exam GENERAL: Chronically ill appearing HENT: Normocephalic, Atraumatic. EYES: PERRL, EOMI PULMONARY: Crackles at bases CARDIOVASCULAR: RRR 2+ pitting edema bilaterally ABDOMEN: Soft and nontender with normal bowel sounds. SKIN: Skin is clear with no lesions or rashes and otherwise unremarkable. : Deferred NEUROLOGIC: Patient is alert and oriented x3 but poor historian, poor comprehension of medical history Moving all extremities spontaneously MUSCULOSKELETAL: Normal extremities with adequate strength and full range of motion. No lower extremity swelling or edema. No calf tenderness. PSYCHIATRIC: Normal psychiatric evaluation. Limitations: no limitations Course Vital Signs 08/24/20 08/24/20 08/24/20 19:26 20:16 20:33 Temperature 97.5 F L Pulse Rate 65 63 Respiratory 26 H 21 20 Rate Blood Pressure 125/89 O2 Sat by Pulse 92 L 97 Oximetry 08/24/20 21:00 Temperature Pulse Rate 64 Respiratory 20 Rate Blood Pressure 137/97 O2 Sat by Pulse 97 Oximetry Medical Decision Making - Medical Decision Making Patient was seen and evaluated, history is obtained from the patient, daughter bedside as well as review of medical records from hospitalization in [place] From records of hospitalization the patient was admitted with elevated d-dimer's and troponins, she underwent PE study which was negative as well as a cardiac catheterization and was diagnosed with myocarditis with clean coronary arteries at that time she was taken off of her anticoagulant and discharged home on only aspirin Cardiac workup was initiated Again patient's d-dimer and troponin are mildly elevated these are elevated the same amount as they were during her previous hospitalization, considering her previous negative PE study and negative cardiac catheterization which I can see records of I do not feel she would benefit from repeat CT angiography of the chest Patient care was discussed with tree climber Dr. Albert who recommends patients beta josé be held, echo for tomorrow, no need for repeat PE study patient has no other risk factors for pulmonary embolism Patient care was discussed with patient's primary care provider Dr. Liu, patient has not seen her primary care since returning from [place] but he will accept the admission for heart failure likely related to recent diagnosis of myocarditis - Lab Data Result diagrams: 08/24/20 20:00 08/24/20 20:00 Lab Results 08/24/20 08/24/20 08/24/20 Range/Units 19:46 20:00 20:00 WBC 8.2 (3.8-10.6) k/uL RBC 5.52 H (3.80-5.40) m/uL Hgb 16.9 H (11.4-16.0) gm/dL Hct 52.1 H (34.0-46.0) % MCV 94.4 (80.0-100.0) fL MCH 30.7 (25.0-35.0) pg MCHC 32.5 (31.0-37.0) g/dL RDW 16.7 H (11.5-15.5) % Plt Count 204 (150-450) k/uL MPV 8.6 Neutrophils % 66 % Lymphocytes % 21 % Monocytes % 8 % Eosinophils % 3 % Basophils % 1 % Neutrophils # 5.4 (1.3-7.7) k/uL Lymphocytes # 1.7 (1.0-4.8) k/uL Monocytes # 0.7 (0-1.0) k/uL Eosinophils # 0.3 (0-0.7) k/uL Basophils # 0.1 (0-0.2) k/uL Anisocytosis Slight PT 15.6 H (9.0-12.0) sec INR 1.6 H (<1.2) APTT 25.2 (22.0-30.0) sec D-Dimer 2.93 H (<0.60) mg/L FEU Sodium (137-145) mmol/L Potassium (3.5-5.1) mmol/L Chloride (98-107) mmol/L Carbon Dioxide (22-30) mmol/L Anion Gap mmol/L BUN (7-17) mg/dL Creatinine (0.52-1.04) mg/dL Est GFR (CKD-EPI)AfAm (>60 ml/min/1.73 sqM) Est GFR (CKD-EPI)NonAf (>60 ml/min/1.73 sqM) Glucose (74-99) mg/dL Calcium (8.4-10.2) mg/dL Magnesium (1.6-2.3) mg/dL Total Bilirubin (0.2-1.3) mg/dL AST (14-36) U/L ALT (4-34) U/L Alkaline Phosphatase (38-126) U/L Troponin I (0.000-0.034) ng/mL NT-Pro-B Natriuret Pep 33881 pg/mL Total Protein (6.3-8.2) g/dL Albumin (3.5-5.0) g/dL 08/24/20 08/24/20 Range/Units 20:00 20:00 WBC (3.8-10.6) k/uL RBC (3.80-5.40) m/uL Hgb (11.4-16.0) gm/dL Hct (34.0-46.0) % MCV (80.0-100.0) fL MCH (25.0-35.0) pg MCHC (31.0-37.0) g/dL RDW (11.5-15.5) % Plt Count (150-450) k/uL MPV Neutrophils % % Lymphocytes % % Monocytes % % Eosinophils % % Basophils % % Neutrophils # (1.3-7.7) k/uL Lymphocytes # (1.0-4.8) k/uL Monocytes # (0-1.0) k/uL Eosinophils # (0-0.7) k/uL Basophils # (0-0.2) k/uL Anisocytosis PT (9.0-12.0) sec INR (<1.2) APTT (22.0-30.0) sec D-Dimer (<0.60) mg/L FEU Sodium 136 L (137-145) mmol/L Potassium 3.6 (3.5-5.1) mmol/L Chloride 103 (98-107) mmol/L Carbon Dioxide 24 (22-30) mmol/L Anion Gap 9 mmol/L BUN 21 H (7-17) mg/dL Creatinine 0.83 (0.52-1.04) mg/dL Est GFR (CKD-EPI)AfAm 82 (>60 ml/min/1.73 sqM) Est GFR (CKD-EPI)NonAf 71 (>60 ml/min/1.73 sqM) Glucose 108 H (74-99) mg/dL Calcium 10.2 (8.4-10.2) mg/dL Magnesium 1.9 (1.6-2.3) mg/dL Total Bilirubin 2.1 H (0.2-1.3) mg/dL AST 154 H (14-36) U/L ALT 120 H (4-34) U/L Alkaline Phosphatase 196 H (38-126) U/L Troponin I 0.206 H* (0.000-0.034) ng/mL NT-Pro-B Natriuret Pep pg/mL Total Protein 5.9 L (6.3-8.2) g/dL Albumin 3.5 (3.5-5.0) g/dL - EKG Data -: EKG Interpreted by Me EKG Comments: EKG was obtained due to complaint of shortness of breath, EKG was obtained at 1937, rate is 64 rhythm is a narrow complex regular rhythm with no discernible P waves this is concerning for a junctional rhythm, QRS is 86 QTc is [address] elevations or depressions Review of previous medical record from [place] provides no visual EKG by interpretation was sinus rhythm. This junctional rhythm is new. Disposition Clinical Impression: Cardiomyopathy, Congestive heart failure, Elevated d-dimer, Elevated troponin Disposition: ADMITTED IP TO THIS HOSP Condition: Serious Is patient prescribed a controlled substance at d/c from ED?: No
[2020-08-24 20:07] LABS: Anisocytosis Slight; Basophils # (A) 0.1 k/uL (0-0.2); Basophils % (A) 1 %; Eosinophils # (A) 0.3 k/uL (0-0.7); Eosinophils % (A) 3 %; HCT 52.1 % (34.0-46.0); HGB 16.9 gm/dL (11.4-16.0); Lymphocytes # (A) 1.7 k/uL (1.0-4.8); Lymphocytes % (A) 21 %; MCH 30.7 pg (25.0-35.0); MCHC 32.5 g/dL (31.0-37.0); MCV 94.4 fL (80.0-100.0); Mean Platelet Volume 8.6; Monocytes # (A) 0.7 k/uL (0-1.0); Monocytes % (A) 8 %; Neutrophils # (A) 5.4 k/uL (1.3-7.7); Neutrophils % (A) 66 %; Platelet Count 204 k/uL (150-450); RBC 5.52 m/uL (3.80-5.40); RDW 16.7 % (11.5-15.5); WBC 8.2 k/uL (3.8-10.6)
[2020-08-24 20:27] LABS: INR 1.6 (<1.2); Partial Thromboplastin Time 25.2 sec (22.0-30.0); Prothrombin Time 15.6 sec (9.0-12.0)
[2020-08-24 20:29] LABS: D-Dimer 2.93 mg/L FEU (<0.60)
[2020-08-24 20:32] LABS: Albumin 3.5 g/dL (3.5-5.0); Calcium 10.2 mg/dL (8.4-10.2); Magnesium 1.9 mg/dL (1.6-2.3); Potassium 3.6 mmol/L (3.5-5.1); Total Bilirubin 2.1 mg/dL (0.2-1.3); Total Protein 5.9 g/dL (6.3-8.2)
--- NOTE | 2020-08-24 20:45 | XR ---
EXAMINATION TYPE: XR chest 2V DATE OF EXAM: 08/24/2020 COMPARISON: 04/20/2020 HISTORY: Chest pain TECHNIQUE: FINDINGS: Heart is enlarged. There is no heart failure. Thoracic aorta is atheromatous. The lungs are clear of consolidation. There are chest leads. Costophrenic angles are clear. IMPRESSION: Atheromatous aorta. Cardiomegaly. Heart appears increased compared to old exam.
[2020-08-24] MEDS: FUROSEMIDE 10 MG/ML 4 ML VIAL IV SCH (22:31)
[2020-08-24] MEDS ORDERED: ALPRAZolam 0.25 MG TAB PO STA (22:59)
[2020-08-25] MEDS: ALPRAZolam 0.25 MG TAB PO SCH ×2 (08:36→20:45)
[2020-08-25] MEDS: FUROSEMIDE 10 MG/ML 4 ML VIAL IV SCH (10:00)
--- NOTE | 2020-08-25 11:37 | ECHOF ---
Referral Reason:heart failure MEASUREMENTS -------- HEIGHT: 149.9 cm WEIGHT: 59.0 kg BP: 117/81 IVSd: 1.7 cm (0.6 - 1.1) LVIDd: 2.9 cm (3.9 - 5.3) LVPWd: 1.9 cm (0.6 - 1.1) EDV(Teich): 33 ml IVSs: 2.0 cm LVIDs: 2.1 cm LVPWs: 2.0 cm %IVS Thck: 13 % ESV(Teich): 14 ml EF(Teich): 57 % %FS: 29 % SV(Teich): 19 ml RVIDd: 3.5 cm (< 3.3) IVC: 24.18 mm RA Diam: 4.4 cm LALs A4C: 6.4 cm LAAs A4C: 23.5 cm LAESV A-L A4C: 74 ml LAESV MOD A4C: 71 ml LALs A2C: 5.4 cm LAAs A2C: 19.0 cm LAESV A-L A2C: 57 ml LAESV MOD A2C: 55 ml LAESV(A-L): 71 ml LAESV Index (A-L): 45.86 ml/m Ao Diam: 3.0 cm (2.0 - 3.7) LA Diam: 4.8 cm (2.7 - 3.8) AV Cusp: 1.4 cm (1.5 - 2.6) EPSS: 0.2 cm MV E Rajinder: 0.64 m/s MV DecT: 177 ms MV Dec [place]: 3.6 m/s MV A Rajinder: 0.25 m/s MV E/A Ratio: 2.54 MV PHT: 51 ms LVOT Vmax: 0.70 m/s LVOT maxP.99 mmHg AV Vmax: 1.11 m/s AV maxP.94 mmHg TR Vmax: 2.62 m/s TR maxP.42 mmHg RAP: 20.00 mmHg RVSP: 47.42 mmHg MV EF SLOPE: 89.61 mm/s (70 - 150) MV EXCURSION: 15.68 mm (> 18.000) FINDINGS -------- Sinus rhythm. This was a technically adequate study. The left ventricular size is normal. There is severe concentric left ventricular hypertrophy. Ove rall left ventricular systolic function is low-normal with, an EF between 50 - 55 %. Increased Lap Grade II Diastolic Dysfunction. The right ventricle is mildly enlarged. LA is severely dilated >40 ml/m2 The right atrium is mildly enlarged. Interatrial and interventricular septum intact. The aortic valve is trileaflet and appears structurally normal. There is no evidence of aortic regu rgitation. There is no evidence of aortic stenosis. Moderate mitral regurgitation is present. Moderate tricuspid regurgitation present. There is moderate pulmonary hypertension. The right oseas tricular systolic pressure, as measured by Doppler, is 47.42mmHg. Trace/mild (physiologic) pulmonic regurgitation. The aortic root size is normal. The inferior vena cava is dilated with poor inspiratory collapse which is consistent with estimated r ight atrial pressure of 20 mmHg. There is a moderate, generalized pericardial effusion present. CONCLUSIONS -------- 1. The left ventricular size is normal. 2. There is severe concentric left ventricular hypertrophy. 3. Overall left ventricular systolic function is low-normal with, an EF between 50 - 55 %. 4. Increased Lap Grade II Diastolic Dysfunction. 5. The right ventricle is mildly enlarged. 6. LA is severely dilated >40 ml/m2 7. The right atrium is mildly enlarged. 8. Moderate mitral regurgitation is present. 9. Moderate tricuspid regurgitation present. 10. There is moderate pulmonary hypertension. 11. The right ventricular systolic pressure, as measured by Doppler, is 47.42mmHg. 12. Trace/mild (physiologic) pulmonic regurgitation. 13. The inferior vena cava is dilated with poor inspiratory collapse which is consistent with estimat ed right atrial pressure of 20 mmHg. 14. There is a moderate, generalized pericardial effusion present. WOOD MECHANIST: Kyung Hernandez RDCS
--- NOTE | 2020-08-25 12:12 | P.HPIM ---
History of Present Illness H&P Date: 08/25/20 Chief Complaint: Shortness of breath HISTORY OF PRESENT ILLNESS This is a 70-year-old female patient of Dr. Liu with past medical history of paraesophageal hiatal hernia, severe gastroesophageal reflux disease, chronic bronchial asthma mild intermittent, hypertension, hyperlipidemia, Patient was last hospitalized at [facility] under the care of Dr. Shirley for robotic-assisted laparoscopic repair of incarcerated paraesophageal hernia which was on 04/19/2020. Patient normally spends part of her year in [place]. While in [place], patient developed shortness of breath which she states started after increased stress that was going on between her, her daughters and her sisters. She states she just didn't feel well and she was taken to the clinic and from there to [facility] on 07/17/2020 for evaluation. She was diagnosed with non-ST elevated myocardial infarction. She had a CTA of the chest was negative for pulmonary embolism, thoracic aortic dissection or aneurysmal dilatation. There is cardiomegaly with reflux of contrast into the IVC and hepatic veins likely secondary to right-sided heart failure. Troponin was 1.161. Patient was diagnosed with non-ST elevated myocardial infarction. Patient underwent a heart catheterization in April apparently before her hiatal hernia surgery which was reported to the patient as being negative. Patient underwent a heart catheterization which would be her second one that found nonobstructive coronary artery disease and she was also diagnosed with diastolic heart failure. Although echo report is not available in the records obtained from [facility], EF was documented as normal. Patient was discharged from the hospital in new medications included Cozaar, Lopressor and Lasix with potassium. She has had a follow-up appointment with her diagnostic radiologic technologist in [place] and is recently returned to [place]. Her diagnostic radiologic technologist in [place] is Dr. Soria. Patient complains of shortness of breath and has been persistent as well as edema to the lower extremities. No fever or chills. No cough. She denies having Covid 19. Patient presented to [facility] emergency center for evaluation. She was found to be afebrile, heart rate 65, respiratory rate 26, blood pressure 125/89, pulse ox 92% on room air WBC 8.2, hemoglobin 16.9, platelet count 204. Sodium 136, potassium 3.6, chloride 103, CO2 24, BUN 21 and creatinine 0.83. Blood sugar 108. Troponin 0.206. Liver function tests were elevated with total bilirubin 2.1, AST 154, ALT 120, alkaline phosphatase 196. EKG is junctional rhythm. Echocardiogram reveals EF of 50-55% with severe concentric left ventricular hypertrophy, LA is severely dilated greater than 40 ML/M2, moderate mitral regurgitation, moderate tricuspid regurgitation, moderate pulmonary hypertension, moderate generalized pericardial effusion. Chest x-ray reveals atheromatosis aorta. Cardiomegaly. Heart appears increased compared to old exam. Patient is seen today in the emergency center waiting for a cardiac stepdown unit bed, cardiology consult and patient has been started on Lasix 40 mg IV every 12 hours REVIEW OF SYSTEMS Constitutional: No fever, no chills, no night sweats. No weight change. No weakness, fatigue or lethargy. No daytime sleepiness. EENT: No headache. No blurred vision or double vision, no loss of vision. No loss of Hearing, no ringing in the ears, no dizziness. No nasal drainage or congestion. No epistaxis. No sore throat. Lungs: No shortness of breath, cough, no sputum production. No wheezing. Cardiovascular: No chest pain, no lower extremity edema. No palpitations. No p aroxysmal nocturnal dyspnea. No orthopnea. No lightheadedness or dizziness. No syncopal episodes. Abdominal: No abdominal pain. No nausea, vomiting. No diarrhea. No constipation. No bloody or tarry stools.. No loss of appetite. Genitourinary: No dysuria, increased frequency, urgency. No urinary retention. Musculoskeletal: No myalgias. No muscle weakness, no gait dysfunction, no frequent falls. No back pain. No neck pain. Integumentary: No wounds, no lesions. No rash or pruritus. No unusual bruising. No change in hair or nails. Neurologic: No aphasia. No facial droop. No change in mentation. No head injury. No headache. No paralysis. No paresthesia. Psychiatric: No depression. No anxiety. No mood swings. Endocrine: No abnormal blood sugars. No weight change. No excessive sweating or thirst. No cold intolerance. SOCIAL HISTORY Patient is a lifelong nonsmoker, no alcohol use, no marijuana use, no illicit drug use. She is and her 7 years ago. She retired from [employer] 8-9 years ago. FAMILY HISTORY Mother at age 90 while living in an ECF following a fall. Mother at age 80 from lung disease with long history of asthma. Patient does not have any brothers. Patient has 2 sisters with no major medical problems. Patient has 2 daughters with no major medical problems. PHYSICAL EXAMINATION Gen: This is a 70-year-old female. She appears to be in no acute distress but slightly anxious. No respiratory distress is noted. HEENT: Head is atraumatic, normocephalic. Pupils equal, round. Sclerae is anicteric. NECK: Supple. No JVD. No lymphadenopathy. No thyromegaly. LUNGS: Decreased breath sounds bilateral bases but otherwise clear to auscultation. No wheezes or rhonchi. No intercostal retractions. No accessory muscle usage. HEART: Regular rate and rhythm. No murmur. ABDOMEN: Soft. Bowel sounds are present. No masses. No tenderness. EXTREMITIES: No pedal edema. No calf tenderness. Dorsalis pedis +2 bilaterally. NEUROLOGICAL: Patient is awake, alert and oriented x3. Cranial nerves 2 through 12 are grossly intact. ASSESSMENT AND PLAN 1. Acute on chronic dyspnea secondary to acute on chronic diastolic heart failure, cardiomyopathy, pericardial effusion. Continue IV Lasix 40 mg every 12 hours, potassium increased to 20 mEq twice daily, Lopressor 25 mg twice daily, daily weights and I&O, monitor renal function and electrolytes, cardiology consult. 2. Elevated troponins. Patient had recent heart catheterization in [place] was reported as negative for obstructive disease. Cardiology consult and repeat troponins. 3. Hyperlipidemia. Continue Lipitor 20 mg daily. 4. Hypertension. Continue losartan 25 mg daily, Lopressor 25 mg twice daily. 5. Hiatal hernia status post robotic-assisted laparoscopic repair of incarcerated paraesophageal hernia in April 2020, stable. 6. Mild intermittent asthma, stable. 7. Gastroesophageal reflux disease and GI prophylaxis. Continue omeprazole 20 g twice daily. 8. Generalized anxiety disorder. Continue Xanax 0.25 mg twice daily. 9. DVT prophylaxis. Heparin subcu. 10. [ ]. 11. [ ]. 12. COVID-19 testing negative. Patient has been hospitalized during a pandemic. Patient will be admitted to the hospital for a minimum of 2 night stay. DISCHARGE PLAN [ ]. Impression and plan of care have been directed as dictated by the signing physician. Lisa Davis nurse practitioner acting as scribe for signing physician. Past Medical History Past Medical History: Asthma, Chest Pain / Angina, GERD/Reflux, Hyperlipidemia, Hypertension, Myocardial Infarction ([place]) Additional Past Medical History / Comment(s): Hiatal Hernia, hx 2 ulcers in stomach; Bursitis both knees. Hx pancreatitis, SOB w/exertion due to hernia History of Any Multi-Drug Resistant Organisms: None Reported Past Surgical History: Back Surgery, Heart Catheterization, Heart Catheterization With Stent, Hysterectomy, Orthopedic Surgery, Tonsillectomy Additional Past Surgical History / Comment(s): Back surgery with hardware, L carpal tunnel, L foot surgery, Past Anesthesia/Blood Transfusion Reactions: Previous Problems w/ Anesthesia, Motion Sickness, Postoperative Nausea & Vomiting (PONV) Additional Past Anesthesia/Blood Transfusion Reaction / Comment(s): was told stopped breathing during EGD Past Psychological History: Depression Smoking Status: Never smoker Past Alcohol Use History: Occasional Past Drug Use History: None Reported - Past Family History Mother Family Medical History: No Reported History Father Family Medical History: No Reported History Additional Family Medical History / Comment(s): Father lived to be 90yrs. Medications and Allergies Home Medications Medication Instructions Recorded Confirmed Type ALPRAZolam [Xanax] 0.25 mg PO BID 11/01/18 08/24/20 History Multivitamin [Multivitamins Adult 1 tab PO DAILY 11/01/18 08/24/20 History Gummies] Atorvastatin [Lipitor] 20 mg PO DAILY 04/14/20 08/24/20 History Ferrous Sulfate [Feosol] 325 mg PO DAILY 08/24/20 08/24/20 History Fexofenadine/Pseudoephedrine 1 tab PO DAILY 08/24/20 08/24/20 History [Annalee-D 24 Hour Tablet] Furosemide [Lasix] 20 mg PO DAILY 08/24/20 08/24/20 History Losartan Potassium [Cozaar] 25 mg PO DAILY 08/24/20 08/24/20 History Metoprolol Tartrate [Lopressor] 25 mg PO BID 08/24/20 08/24/20 History Montelukast [Singulair] 10 mg PO DAILY 08/24/20 08/24/20 History Omeprazole 20 mg PO BID 08/24/20 08/24/20 History Potassium Chloride ER [K-Dur 10] 10 meq PO DAILY 08/24/20 08/24/20 History Allergies Allergy/AdvReac Type Severity Reaction Status Date / Time No Known Allergies Allergy Verified 08/24/20 20:20 Physical Exam Vitals: Vital Signs Temp Pulse Resp BP Pulse Ox 08/25/20 07:30 70 20 130/66 96 08/25/20 06:00 61 17 117/81 97 08/25/20 05:00 61 17 106/71 99 08/25/20 04:00 62 18 121/86 98 08/25/20 02:13 63 17 117/93 97 08/25/20 00:54 69 19 123/92 99 08/24/20 23:00 68 16 134/81 98 08/24/20 21:00 64 20 137/97 97 08/24/20 20:33 63 20 97 08/24/20 20:16 21 08/24/20 19:26 97.5 F L 65 26 H 125/89 92 L Intake and Output 08/24/20 08/25/20 08/25/20 22:59 06:59 14:59 Other: Weight 58.967 kg Results CBC & Chem 7: 08/24/20 20:00 08/24/20 20:00 Labs: Abnormal Lab Results - Last 24 Hours (Table) 08/24/20 08/24/20 08/24/20 Range/Units 20:00 20:00 20:00 RBC 5.52 H (3.80-5.40) m/uL Hgb 16.9 H (11.4-16.0) gm/dL Hct 52.1 H (34.0-46.0) % RDW 16.7 H (11.5-15.5) % PT 15.6 H (9.0-12.0) sec INR 1.6 H (<1.2) D-Dimer 2.93 H (<0.60) mg/L FEU Sodium 136 L (137-145) mmol/L BUN 21 H (7-17) mg/dL Glucose 108 H (74-99) mg/dL Total Bilirubin 2.1 H (0.2-1.3) mg/dL AST 154 H (14-36) U/L ALT 120 H (4-34) U/L Alkaline Phosphatase 196 H (38-126) U/L Troponin I (0.000-0.034) ng/mL Total Protein 5.9 L (6.3-8.2) g/dL 08/24/20 Range/Units 20:00 RBC (3.80-5.40) m/uL Hgb (11.4-16.0) gm/dL Hct (34.0-46.0) % RDW (11.5-15.5) % PT (9.0-12.0) sec INR (<1.2) D-Dimer (<0.60) mg/L FEU Sodium (137-145) mmol/L BUN (7-17) mg/dL Glucose (74-99) mg/dL Total Bilirubin (0.2-1.3) mg/dL AST (14-36) U/L ALT (4-34) U/L Alkaline Phosphatase (38-126) U/L Troponin I 0.206 H* (0.000-0.034) ng/mL Total Protein (6.3-8.2) g/dL
--- NOTE | 2020-08-25 12:44 | P.CRDCN ---
History of Present Illness Consult date: 08/25/20 Chief complaint: Shortness of breath History of present illness: This is a very pleasant 70-year-old female patient who we requested to see in [facility] emergency department for further evaluation of shortness of breath. The patient is somewhat is a poor historian. She does have a past medical history significant for hypertension as well as dyslipidemia. Earlier this year and as part of preoperative cardiac assessment she underwent myocardial perfusion imaging stress test and that came in to be abnormal and subsequently she underwent a heart catheterization and that revealed mild nonobstructive coronary artery disease. She presented to the emergency department here complaining of generalized symptoms of being tired and fatigued and has no energy. Beside that she describes increasing the shortness of breath mainly when she is laying flat in bed and also mainly was she exerts herself. She denies any symptoms of chest pain or chest discomfort or any dizziness or lightheadedness or any feeling of presyncope or syncope and no symptoms of heart racing or fluttering. She underwent a workup here. She underwent an echocardiogram which revealed normal left ventricular systolic function was evidence of hypertensive heart disease associated with moderate pericardial effusion and evidence of moderate mitral regurgitation and moderate tricuspid regurgitation. She was in [place] recently and that was in July 2020 when she was diagnosed with acute coronary syndrome according to her and she underwent a heart catheterization that revealed mild nonobstructive coronary artery disease and also computed tomography scan for the chest and that came in to be unremarkable. She was told that she does have "fluid around the heart". She was treated medically and discharged in stable medical condition. She was discharged on Cozaar as well as Lopressor as well as Lasix and potassium. This time her main complaint is the shortness of breath. She does not have any fever or chills and no cough. She was tested negative for COVID 19 infection. The EKG showed what it seems to be questionable junctional rhythm with low. The age QRS. The chest x-ray did not show any acute finding. The M.D. proBNP came in to be elevated. Past Medical History Past Medical History: Asthma, Chest Pain / Angina, GERD/Reflux, Hyperlipidemia, Hypertension, Myocardial Infarction (SC) Additional Past Medical History / Comment(s): Hiatal Hernia, hx 2 ulcers in stomach; Bursitis both knees. Hx pancreatitis, SOB w/exertion due to hernia Last Myocardial Infarction Date:: 07/2020 History of Any Multi-Drug Resistant Organisms: None Reported Past Surgical History: Back Surgery, Heart Catheterization, Heart Catheteri zation With Stent, Hysterectomy, Orthopedic Surgery, Tonsillectomy Additional Past Surgical History / Comment(s): Back surgery with hardware, L carpal tunnel, L foot surgery, Past Anesthesia/Blood Transfusion Reactions: Previous Problems w/ Anesthesia, Motion Sickness, Postoperative Nausea & Vomiting (PONV) Additional Past Anesthesia/Blood Transfusion Reaction / Comment(s): was told stopped breathing during EGD Past Psychological History: Depression Smoking Status: Never smoker Past Alcohol Use History: Occasional Past Drug Use History: None Reported - Past Family History Mother Family Medical History: No Reported History Father Family Medical History: No Reported History Additional Family Medical History / Comment(s): Father lived to be 90yrs. Medications and Allergies Home Medications Medication Instructions Recorded Confirmed Type ALPRAZolam [Xanax] 0.25 mg PO BID 11/01/18 08/24/20 History Multivitamin [Multivitamins Adult 1 tab PO DAILY 11/01/18 08/24/20 History Gummies] Atorvastatin [Lipitor] 20 mg PO DAILY 04/14/20 08/24/20 History Ferrous Sulfate [Feosol] 325 mg PO DAILY 08/24/20 08/24/20 History Fexofenadine/Pseudoephedrine 1 tab PO DAILY 08/24/20 08/24/20 History [Annalee-D 24 Hour Tablet] Furosemide [Lasix] 20 mg PO DAILY 08/24/20 08/24/20 History Losartan Potassium [Cozaar] 25 mg PO DAILY 08/24/20 08/24/20 History Metoprolol Tartrate [Lopressor] 25 mg PO BID 08/24/20 08/24/20 History Montelukast [Singulair] 10 mg PO DAILY 08/24/20 08/24/20 History Omeprazole 20 mg PO BID 08/24/20 08/24/20 History Potassium Chloride ER [K-Dur 10] 10 meq PO DAILY 08/24/20 08/24/20 History Allergies Allergy/AdvReac Type Severity Reaction Status Date / Time No Known Allergies Allergy Verified 08/24/20 20:20 Physical Exam Vitals: Vital Signs Temp Pulse Resp BP Pulse Ox 08/25/20 12:34 69 17 99/79 98 08/25/20 10:00 66 22 109/74 96 08/25/20 07:30 70 20 130/66 96 08/25/20 06:00 61 17 117/81 97 08/25/20 05:00 61 17 106/71 99 08/25/20 04:00 62 18 121/86 98 08/25/20 02:13 63 17 117/93 97 08/25/20 00:54 69 19 123/92 99 08/24/20 23:00 68 16 134/81 98 08/24/20 21:00 64 20 137/97 97 08/24/20 20:33 63 20 97 08/24/20 20:16 21 08/24/20 19:26 97.5 F L 65 26 H 125/89 92 L Intake and Output 08/24/20 08/25/20 08/25/20 22:59 06:59 14:59 Other: Weight 58.967 kg 58.967 kg - Constitutional General appearance: no acute distress - Respiratory Respiratory: bilateral: diminished - Cardiovascular Rhythm: regular Heart sounds: normal: S1, S2 Abnormal Heart Sounds: systolic murmur Results 08/24/20 20:00 08/24/20 20:00 Cardiac Enzymes 08/24/20 08/24/20 Range/Units 20:00 20:00 AST 154 H (14-36) U/L Troponin I 0.206 H* (0.000-0.034) ng/mL Coagulation 08/24/20 Range/Units 20:00 PT 15.6 H (9.0-12.0) sec APTT 25.2 (22.0-30.0) sec CBC 08/24/20 Range/Units 20:00 WBC 8.2 (3.8-10.6) k/uL RBC 5.52 H (3.80-5.40) m/uL Hgb 16.9 H (11.4-16.0) gm/dL Hct 52.1 H (34.0-46.0) % Plt Count 204 (150-450) k/uL Comprehensive Metabolic Panel 08/24/20 Range/Units 20:00 Sodium 136 L (137-145) mmol/L Potassium 3.6 (3.5-5.1) mmol/L Chloride 103 (98-107) mmol/L Carbon Dioxide 24 (22-30) mmol/L BUN 21 H (7-17) mg/dL Creatinine 0.83 (0.52-1.04) mg/dL Glucose 108 H (74-99) mg/dL Calcium 10.2 (8.4-10.2) mg/dL AST 154 H (14-36) U/L ALT 120 H (4-34) U/L Alkaline Phosphatase 196 H (38-126) U/L Total Protein 5.9 L (6.3-8.2) g/dL Albumin 3.5 (3.5-5.0) g/dL Current Medications Generic Name Dose Route Start Last Admin Trade Name Freq PRN Reason Stop Dose Admin Alprazolam 0.25 mg 08/25/20 09:00 08/25/20 08:36 Alprazolam 0.25 Mg Tab PO 0.25 mg BID IESHA Administration Atorvastatin Calcium 20 mg 08/26/20 09:00 Atorvastatin 20 Mg Tab PO DAILY IESHA Furosemide 20 mg 08/25/20 21:00 Furosemide 10 Mg/Ml 2 Ml Vial IV Q12HR [facility] Heparin Sodium (Porcine) 5,000 unit 08/25/20 16:00 Heparin Sodium,Porcine/Pf 5,000 Unit/0.5 Ml Syringe SQ Q8HR [facility] Losartan Potassium 25 mg 08/26/20 09:00 Losartan 25 Mg Tab PO DAILY [facility] Metoprolol Tartrate 25 mg 08/25/20 21:00 Metoprolol Tartrate 25 Mg Tab PO BID [facility] Montelukast Sodium 10 mg 08/26/20 09:00 Montelukast 10 Mg Tab PO DAILY [facility] Multivitamins 1 each 08/26/20 09:00 Multivitamins, Thera 1 Each Tab PO DAILY [facility] Pantoprazole Sodium 40 mg 08/25/20 21:00 Pantoprazole 40 Mg Tablet PO BID [facility] Potassium Chloride 20 meq 08/25/20 21:00 Potassium Chloride Er 20 Meq Tab.Er PO BID IESHA Intake and Output 08/24/20 08/25/20 08/25/20 22:59 06:59 14:59 Other: Weight 58.967 kg 58.967 kg Patient Weight 08/26/20 06:59 Weight 58.967 kg 08/24/20 20:00 08/24/20 20:00 Assessment and Plan Assessment: Assessment #1 shortness of breath likely secondary to pericardial effusion with a component of heart failure with preserved ejection fraction #2 mildly abnormal troponin. Recent heart catheterization showed mild nonobstructive coronary artery disease #3 moderate circumferential pericardial effusion #4 hypertension #5 dyslipidemia Plan #1 I would cut down the dose of Lasix IV giving the amount of pericardial effusion and a soft blood pressure #2 the echocardiogram finding could be consistent with cardiac Amyloid #3 consider medical treatment for the mildly abnormal troponin #4 monitor the blood pressure and heart rate very carefully #5 she might benefit from colchicine if she continues to be symptomatic. #6 follow-up with the patient #7 repeat the echocardiogram in a few days to assess for the pericardial effusion #8 monitor the heart rhythm
[2020-08-25 15:26] VITALS: BMI 26.2
--- NOTE | 2020-08-25 15:56 | CT ---
EXAMINATION TYPE: CT angio chest DATE OF EXAM: 08/25/2020 COMPARISON: Radiograph 08/24/2020 HISTORY: 70 year-old female shortness of breath, difficulty breathing, elevated d dimer TECHNIQUE: Contiguous axial scanning of the chest performed with IV Contrast, patient injected with 1 00 mL of Isovue 370. Coronal/sagittal MIP reconstructions performed. CT DLP: 220.4 mGycm Automated exposure control for dose reduction was used. FINDINGS: Heart is mildly enlarged. Right atrial dilatation. No flattening of the intraventricular septum. Prom inent reflux of contrast into the hepatic veins. There is a moderate pericardial effusion measuring 1 .2 cm thick. Generalized anasarca change. Borderline ectatic ascending aorta 3.5 cm. There is satisfactory opacification of the pulmonary arterial system. No pulmonary embolus is seen. No definite thoracic lymphadenopathy. Some breathing motion artifacts. Small right pleural effusion. No angelia airspace disease. There is some hazy density around the pancreas which may relate to the generalized anasarca. There is also mild perihepatic ascites. Bones: [facility] within the lower thoracic spine with moderate degenerative disc disease. IMPRESSION: 1. MILD BREATHING MOTION ARTIFACT. NO DEFINITE PULMONARY EMBOLUS. 2. MILD CARDIOMEGALY. MODERATE PERICARDIAL EFFUSION MEASURING 1.2 CM THICK. 3. GIVEN PROMINENT GENERALIZED ANASARCA, SMALL RIGHT EFFUSION, RIGHT ATRIAL DILATATION, MILD UPPER AB DOMINAL ASCITES, AND REFLUXING CONTRAST INTO THE HEPATIC VEINS, CORRELATE FOR FLUID OVERLOAD STATE OR ELEVATED CARDIAC PRESSURES/DEVELOPING CHF. THERE IS NO ANGELIA PULMONARY EDEMA. 4. SOME HAZY DENSITY AROUND THE PANCREAS MAY RELATE TO THE ANASARCA CHANGES. CORRELATE WITH AMYLASE A ND LIPASE LEVELS TO EXCLUDE ACUTE PANCREATITIS.
[2020-08-25] MEDS: BUTALB/APAP/CAFF 50-325-40MG TAB PO PRN (15:58)
[2020-08-25] MEDS: HEPARIN SODIUM,PORCINE/PF 5,000 UNIT/0.5 ML SYRINGE SQ SCH ×2 (17:15→23:34)
[2020-08-25] MEDS: PANTOPRAZOLE 40 MG TABLET PO SCH (20:46)
[2020-08-25] MEDS: METOPROLOL TARTRATE 25 MG TAB PO SCH (20:46)
[2020-08-25] MEDS: FUROSEMIDE 10 MG/ML 2 ML VIAL IV SCH (20:46)
[2020-08-25] MEDS: POTASSIUM CHLORIDE ER 20 MEQ TAB.ER PO SCH (20:46)
[2020-08-26 08:16] LABS: Albumin 3.3 g/dL (3.5-5.0); Calcium 9.4 mg/dL (8.4-10.2); Potassium 3.2 mmol/L (3.5-5.1); Total Bilirubin 2.3 mg/dL (0.2-1.3); Total Protein 5.7 g/dL (6.3-8.2)
[2020-08-26] MEDS ORDERED: POTASSIUM CHLORIDE ER 20 MEQ TAB.ER PO STA (08:53)
[2020-08-26] MEDS ORDERED: FERROUS SULFATE 325 MG TAB PO SCH (09:00)
[2020-08-26] MEDS: FUROSEMIDE 10 MG/ML 2 ML VIAL IV SCH ×2 (09:23→19:52)
[2020-08-26] MEDS: METOPROLOL TARTRATE 25 MG TAB PO SCH ×2 (09:24→19:51)
[2020-08-26] MEDS: MONTELUKAST 10 MG TAB PO SCH (09:24)
[2020-08-26] MEDS: ATORVASTATIN 20 MG TAB PO SCH (09:24)
[2020-08-26] MEDS: HEPARIN SODIUM,PORCINE/PF 5,000 UNIT/0.5 ML SYRINGE SQ SCH ×3 (09:24→23:06)
[2020-08-26] MEDS: PANTOPRAZOLE 40 MG TABLET PO SCH ×2 (09:24→19:51)
[2020-08-26] MEDS: POTASSIUM CHLORIDE ER 20 MEQ TAB.ER PO SCH ×2 (09:24→19:51)
[2020-08-26] MEDS: ALPRAZolam 0.25 MG TAB PO SCH ×2 (09:24→20:01)
[2020-08-26] MEDS: MULTIVITAMINS, THERA 1 EACH TAB PO SCH (09:24)
[2020-08-26] MEDS: LOSARTAN 25 MG TAB PO SCH (09:25)
[2020-08-26] MEDS: COLCHICINE 0.6 MG EACH PO SCH ×2 (10:48→19:52)
--- NOTE | 2020-08-26 13:05 | P.PN ---
Subjective Progress Note Date: 08/26/20 HISTORY OF PRESENT ILLNESS: This is a very pleasant 70-year-old female patient who we requested to see in the emergency department for further evaluation of shortness of breath. The patient is somewhat is a poor historian. She does have a past medical history significant for hypertension as well as dyslipidemia. Earlier this year and as part of preoperative cardiac assessment she underwent myocardial perfusion imaging stress test and that came in to be abnormal and subsequently she underwent a heart catheterization and that revealed mild nonobstructive coronary artery disease. She presented to the emergency department here complaining of generalized symptoms of being tired and fatigued and has no energy. Beside that she describes increasing the shortness of breath mainly when she is laying flat in bed and also mainly was she exerts herself. She denies any symptoms of chest pain or chest discomfort or any dizziness or lightheadedness or any feeling of presyncope or syncope and no symptoms of heart racing or fluttering. She underwent a workup here. She underwent an echocardiogram which revealed normal left ventricular systolic function was evidence of hypertensive heart disease associated with moderate pericardial effusion and evidence of moderate mitral regurgitation and moderate tricuspid regurgitation. She was in [place] recently and that was in July 2020 when she was diagnosed with acute coronary syndrome according to her and she underwent a heart catheterization that revealed mild nonobstructive coronary artery disease and also computed tomography scan for the chest and that came in to be unremarkable. She was told that she does have "fluid around the heart". She was treated medically and discharged in stable medical condition. She was discharged on Cozaar as well as Lopressor as well as Lasix and potassium. This time her main complaint is the shortness of breath. She does not have any fever or chills and no cough. She was tested negative for COVID 19 infection. The EKG showed what it seems to be questionable junctional rhythm with low. The age QRS. The chest x-ray did not show any acute finding. The M.D. proBNP came in to be elevated. 08/26/2020 Patient examined this morning at the bedside. Patient denies chest pain or pressure. Denies shortness of breath. Patient remains on IV Lasix 20 mg every 12 hours. She was started on colchicine this morning by internal medicine. PHYSICAL EXAM: VITAL SIGNS: Reviewed. GENERAL: Well-developed in no acute distress. NECK: Supple. No JVD or thyromegaly LUNGS: Respirations even and unlabored. Lungs diminished bilaterally. HEART: Regular rate and rhythm. S1 and S2 heard. Systolic murmur noted. EXTREMITIES: Normal range of motion. No clubbing or cyanosis. Peripheral pulses intact. No lower extremity edema ASSESSMENT: Shortness of breath likely secondary to pericardial effusion and CHF Acute on chronic diastolic heart failure Moderate pericardial effusion Possible cardiac amyloidosis Abnormal troponin, patient had recent cardiac cath revealing mild nonobstructive CAD Hypertension Hyperlipidemia PLAN: Continue current cardiac medications Continue IV Lasix Accurate I&O Daily weight Monitor kidney function Repeat limited echo tomorrow to assess pericardial effusion Nurse practitioner note has been reviewed by physician. Signing provider agrees with the documented findings, assessment, and plan of care. Objective - Vital Signs Vital signs: Vital Signs Temp 98.0 F 08/26/20 08:00 Pulse 70 08/26/20 08:00 Resp 18 08/26/20 08:00 BP 104/67 08/26/20 08:00 Pulse Ox 95 08/26/20 08:01 Intake & Output 08/25/20 08/26/20 08/26/20 18:59 06:59 18:59 Intake Total 200 660 Output Total 700 Balance 200 -700 660 Weight 58.967 kg 60.8 kg Intake: Oral 200 660 Output: Urine 700 Other: Voiding Method Toilet Toilet - Labs CBC & Chem 7: 08/24/20 20:00 08/26/20 06:56 Labs: Abnormal Lab Results - Last 24 Hours (Table) 08/25/20 08/25/20 08/26/20 Range/Units 12:28 15:08 06:56 Sodium 136 L (137-145) mmol/L Potassium 3.2 L (3.5-5.1) mmol/L Chloride 95 L (98-107) mmol/L Carbon Dioxide 36 H (22-30) mmol/L BUN 20 H (7-17) mg/dL Total Bilirubin 2.3 H (0.2-1.3) mg/dL AST 124 H (14-36) U/L ALT 109 H (4-34) U/L Alkaline Phosphatase 214 H (38-126) U/L Troponin I 0.208 H* 0.216 H* (0.000-0.034) ng/mL Total Protein 5.7 L (6.3-8.2) g/dL Albumin 3.3 L (3.5-5.0) g/dL
--- NOTE | 2020-08-26 14:10 | P.PN ---
Subjective Progress Note Date: 08/26/20 HISTORY OF PRESENT ILLNESS This is a 70-year-old female patient of Dr. Liu with past medical history of paraesophageal hiatal hernia, severe gastroesophageal reflux disease, chronic bronchial asthma mild intermittent, hypertension, hyperlipidemia, Patient was last hospitalized at [facility] under the care of Dr. Shirley for robotic-assisted laparoscopic repair of incarcerated paraesophageal hernia which was on 04/19/2020. Patient normally spends part of her year in [place]. While in [place], patient developed shortness of breath which she states started after increased stress that was going on between her, her daughters and her sisters. She states she just didn't feel well and she was taken to the clinic and from there to [facility] on 07/17/2020 for evaluation. She was diagnosed with non-ST elevated myocardial infarction. She had a CTA of the chest was negative for pulmonary embolism, thoracic aortic dissection or aneurysmal dilatation. There is cardiomegaly with reflux of contrast into the IVC and hepatic veins likely secondary to right-sided heart failure. Troponin was 1.161. Patient was diagnosed with non-ST elevated myocardial infarction. Patient underwent a heart catheterization in April before her hiatal hernia surgery which was reported to the patient as being negative. Patient underwent a heart catheterization which would be her second one that found nonobstructive coronary artery disease and she was also diagnosed with diastolic heart failure. Although echo report is not available in the records obtained from [facility], EF was documented as normal. Patient was discharged from the hospital in new medications included Cozaar, Lopressor and Lasix with potassium. She has had a follow-up appointment with her stone mill operator in [place] and is recently returned to [place]. Her stone mill operator in [place] is Dr. Soria. Patient complains of shortness of breath and has been persistent as well as edema to the lower extremities. No fever or chills. No cough. She denies having Covid 19. Patient presented to [facility] emergency center for evaluation. She was found to be afebrile, heart rate 65, respiratory rate 26, blood pressure 125/89, pulse ox 92% on room air WBC 8.2, hemoglobin 16.9, platelet count 204. Sodium 136, potassium 3.6, chloride 103, CO2 24, BUN 21 and creatinine 0.83. Blood sugar 108. Troponin 0.206. Liver function tests were elevated with total bilirubin 2.1, AST 154, ALT 120, alkaline phosphatase 196. EKG is junctional rhythm. Echocardiogram reveals EF of 50-55% with severe concentric left ventricular hypertrophy, LA is severely dilated greater than 40 ML/M2, moderate mitral regurgitation, moderate tricuspid regurgitation, moderate pulmonary hypertension, moderate generalized pericardial effusion. Chest x-ray reveals atheromatosis aorta. Cardiomegaly. Heart appears increased compared to old exam. Patient is seen today in the emergency center waiting for a cardiac stepdown unit bed, cardiology consult and patient has been started on Lasix 40 mg IV every 12 hours 08/26: Patient was seen by Dr. Kim yesterday and concern is for cardiac amyloidosis and he decrease Lasix to 20 mg IV every 12 hours due to soft blood pressure readings. Today, blood pressure 104/67, heart rate 70, pulse ox 89% on room air and patient was placed on 4 L nasal cannula with pulse ox of 95%. Patient may require home oxygen therapy in order to manage acute diastolic heart failure. This will need further follow-up tomorrow. Total bilirubin 2.3, AST 124, ALT 109, alkaline phosphatase 214. Troponins were 0.206 followed by 0.208 and 0.216. Patient is scheduled for a repeat limited echo tomorrow to assess pericardial effusion. Patient will be started on colchicine anticipate possible discharge tomorrow CTA of the chest showed no definite pulmonary embolus. Mild cardiomegaly. Moderate pericardial effusion measuring 1.2 cm. Generalized anasarca, small right effusion, right atrial dilatation and upper abdominal ascites, reflux contrast in the hepatic veins correlate for fluid overload state or elevated cardiac pressures developing CHF. No angelia pulmonary edema. Some hazy density around the pancreas may relate to anasarca. REVIEW OF SYSTEMS Constitutional: No fever, no chills, no night sweats. No weight change. No weakness, fatigue or lethargy. No daytime sleepiness. EENT: No headache. No blurred vision or double vision, no loss of vision. No loss of Hearing, no ringing in the ears, no dizziness. No nasal drainage or congestion. No epistaxis. No sore throat. Lungs: Reports shortness of breath, improved, cough, no sputum production. No wheezing. Cardiovascular: No chest pain, no lower extremity edema. No palpitations. No paroxysmal nocturnal dyspnea. No orthopnea. No lightheadedness or dizziness. No syncopal episodes. Abdominal: No abdominal pain. No nausea, vomiting. No diarrhea. No constipation. No bloody or tarry stools.. No loss of appetite. Genitourinary: No dysuria, increased frequency, urgency. No urinary retention. Musculoskeletal: No myalgias. No muscle weakness, no gait dysfunction, no frequent falls. No back pain. No neck pain. Integumentary: No wounds, no lesions. No rash or pruritus. No unusual bruising. No change in hair or nails. Neurologic: No aphasia. No facial droop. No change in mentation. No head injury. No headache. No paralysis. No paresthesia. Psychiatric: No depression. No anxiety. No mood swings. Endocrine: No abnormal blood sugars. No weight change. No excessive sweating or thirst. No cold intolerance. PHYSICAL EXAMINATION Gen: This is a 70-year-old female. She appears to be in no acute distress but slightly anxious. No respiratory distress is noted. HEENT: Head is atraumatic, normocephalic. Pupils equal, round. Sclerae is anicteric. NECK: Supple. No JVD. No lymphadenopathy. No thyromegaly. LUNGS: Decreased breath sounds bilateral bases but otherwise clear to auscultation. No wheezes or rhonchi. No intercostal retractions. No accessory muscle usage. HEART: Regular rate and rhythm. No murmur. ABDOMEN: Soft. Bowel sounds are present. No masses. No tenderness. EXTREMITIES: No pedal edema. No calf tenderness. Dorsalis pedis +2 bilaterally. NEUROLOGICAL: Patient is awake, alert and oriented x3. Cranial nerves 2 through 12 are grossly intact. ASSESSMENT AND PLAN 1. Acute on chronic dyspnea secondary to acute on chronic diastolic heart failure, cardiomyopathy, pericardial effusion. Continue IV Lasix decreased to 20 mg every 12 hours, potassium increased to 20 mEq twice daily, Lopressor 25 mg twice daily, daily weights and I&O, monitor renal function and electrolytes, cardiology consult. Limited echocardiogram tomorrow. 2. Elevated troponins, acute coronary syndrome ruled out. Patient had recent heart catheterization in [place] was reported as negative for obstructive disease. Cardiology consult and repeat troponins. 3. Hyperlipidemia. Continue Lipitor 20 mg daily. 4. Hypertension. Continue losartan 25 mg daily, Lopressor 25 mg twice daily. 5. Hiatal hernia status post robotic-assisted laparoscopic repair of incarcerated paraesophageal hernia in April 2020, stable. 6. Mild intermittent asthma, stable. 7. Gastroesophageal reflux disease and GI prophylaxis. Continue omeprazole 20 g twice daily. 8. Generalized anxiety disorder. Continue Xanax 0.25 mg twice daily. 9. DVT prophylaxis. Heparin subcu. 10. COVID-19 testing negative. Patient has been hospitalized during a pandemic. DISCHARGE PLAN Home on Sunday without homecare. Impression and plan of care have been directed as dictated by the signing physician. Lisa Davis nurse practitioner acting as scribe for signing physician. Objective - Vital Signs Vital signs: Vital Signs Temp 97.5 F L 08/25/20 23:39 Pulse 56 L 08/26/20 04:00 Resp 18 08/26/20 04:00 BP 99/68 08/26/20 04:00 Pulse Ox 98 08/26/20 04:00 Intake & Output 08/25/20 08/26/20 08/26/20 18:59 06:59 18:59 Intake Total 200 Output Total 700 Balance 200 -700 Weight 58.967 kg 60.8 kg Intake: Oral 200 Output: Urine 700 Other: Voiding Method Toilet - Labs CBC & Chem 7: 08/24/20 20:00 08/26/20 06:56 Labs: Abnormal Lab Results - Last 24 Hours (Table) 08/25/20 08/25/20 08/26/20 Range/Units 12:28 15:08 06:56 Sodium 136 L (137-145) mmol/L Potassium 3.2 L (3.5-5.1) mmol/L Chloride 95 L (98-107) mmol/L Carbon Dioxide 36 H (22-30) mmol/L BUN 20 H (7-17) mg/dL Total Bilirubin 2.3 H (0.2-1.3) mg/dL AST 124 H (14-36) U/L ALT 109 H (4-34) U/L Alkaline Phosphatase 214 H (38-126) U/L Troponin I 0.208 H* 0.216 H* (0.000-0.034) ng/mL Total Protein 5.7 L (6.3-8.2) g/dL Albumin 3.3 L (3.5-5.0) g/dL
[2020-08-27] MEDS: HEPARIN SODIUM,PORCINE/PF 5,000 UNIT/0.5 ML SYRINGE SQ SCH ×2 (09:05→16:43)
[2020-08-27] MEDS: ATORVASTATIN 20 MG TAB PO SCH (09:06)
[2020-08-27] MEDS: ALPRAZolam 0.25 MG TAB PO SCH ×3 (09:06→20:43)
[2020-08-27] MEDS: PANTOPRAZOLE 40 MG TABLET PO SCH ×2 (09:06→20:43)
[2020-08-27] MEDS: POTASSIUM CHLORIDE ER 20 MEQ TAB.ER PO SCH ×2 (09:06→20:43)
[2020-08-27] MEDS: METOPROLOL TARTRATE 25 MG TAB PO SCH ×2 (09:06→20:43)
[2020-08-27] MEDS: MULTIVITAMINS, THERA 1 EACH TAB PO SCH (09:06)
[2020-08-27] MEDS: LOSARTAN 25 MG TAB PO SCH (09:06)
[2020-08-27] MEDS: FUROSEMIDE 10 MG/ML 2 ML VIAL IV SCH ×2 (09:06→20:43)
[2020-08-27] MEDS: MONTELUKAST 10 MG TAB PO SCH (09:06)
[2020-08-27] MEDS: COLCHICINE 0.6 MG EACH PO SCH ×2 (09:06→21:21)
[2020-08-27 11:20] VITALS: RESP 16
--- NOTE | 2020-08-27 12:56 | P.PN ---
Subjective Progress Note Date: 08/27/20 Principal diagnosis: Shortness of breath This is a 70-year-old female patient with a past medical history significant for hypertension and dyslipidemia who was admitted to the hospital with increasing shortness of breath and an echocardiogram showing moderate pericardial effusion. The whole picture could be consistent was cardiac amyloidosis. The patient was started on Lasix a small dose. She was seen this morning. She states she is feeling slightly better. The shortness of breath is better. The chest is clear on examination. The blood pressure is marginal. With that being said going to stop losartan. We'll continue the current dose of Lasix at 20 mg IV twice a day going to obtain an echocardiogram limited only to assess for pericardial effusion. As an outpat ient sheath to have a workup for cardiac amyloid like either nuclear scan or cardiac MR Objective - Vital Signs Vital signs: Vital Signs Temp 97.7 F 08/27/20 09:04 Pulse 63 08/27/20 10:55 Resp 16 08/27/20 10:55 BP 94/63 08/27/20 10:55 Pulse Ox 92 L 08/27/20 10:55 Intake & Output 08/26/20 08/27/20 08/27/20 18:59 06:59 18:59 Intake Total 900 Balance 900 Weight 61.2 kg Intake: Oral 900 Other: Voiding Method Toilet Toilet # Voids 1 - Constitutional General appearance: Present: no acute distress - Respiratory Respiratory: bilateral: CTA - Cardiovascular Rhythm: regular Heart sounds: normal: S1, S2 - Labs CBC & Chem 7: 08/24/20 20:00 08/26/20 06:56 Assessment and Plan Assessment: Assessment #1 shortness of breath likely secondary to pericardial effusion #2 possible cardiac amoloid #3 mildly abnormal troponin. Recent heart catheterization showed mild nonobstructive coronary artery disease #4 moderate circumferential pericardial effusion Plan #1 continue the current dose of Lasix IV #2 DC losartan view of the margin a low blood pressure #3 limited echocardiogram to assess for pericardial effusion #4 follow-up with the patient
--- NOTE | 2020-08-27 21:10 | P.PN ---
Subjective Progress Note Date: 08/27/20 HISTORY OF PRESENT ILLNESS This is a 70-year-old female patient of Dr. Liu with past medical history of paraesophageal hiatal hernia, severe gastroesophageal reflux disease, chronic bronchial asthma mild intermittent, hypertension, hyperlipidemia, Patient was last hospitalized at [facility] under the care of Dr. Shirley for robotic-assisted laparoscopic repair of incarcerated paraesophageal hernia which was on 04/19/2020. Patient normally spends part of her year in [place]. While in [place], patient developed shortness of breath which she states started after increased stress that was going on between her, her daughters and her sisters. She states she just didn't feel well and she was taken to the clinic and from there to [facility] on 07/17/2020 for evaluation. She was diagnosed with non-ST elevated myocardial infarction. She had a CTA of the chest was negative for pulmonary embolism, thoracic aortic dissection or aneurysmal dilatation. There is cardiomegaly with reflux of contrast into the IVC and hepatic veins likely secondary to right-sided heart failure. Troponin was 1.161. Patient was diagnosed with non-ST elevated myocardial infarction. Patient underwent a heart catheterization in April before her hiatal hernia surgery which was reported to the patient as being negative. Patient underwent a heart catheterization which would be her second one that found nonobstructive coronary artery disease and she was also diagnosed with diastolic heart failure. Although echo report is not available in the records obtained from [facility], EF was documented as normal. Patient was discharged from the hospital in new medications included Cozaar, Lopressor and Lasix with potassium. She has had a follow-up appointment with her java lead architect in [place] and is recently returned to [place]. Her c ardiologist in [place] is Dr. Soria. Patient complains of shortness of breath and has been persistent as well as edema to the lower extremities. No fever or chills. No cough. She denies having Covid 19. Patient presented to [facility] emergency center for evaluation. She was found to be afebrile, heart rate 65, respiratory rate 26, blood pressure 125/89, pulse ox 92% on room air WBC 8.2, hemoglobin 16.9, platelet count 204. Sodium 136, potassium 3.6, chloride 103, CO2 24, BUN 21 and creatinine 0.83. Blood sugar 108. Troponin 0.206. Liver function tests were elevated with total bilirubin 2.1, AST 154, ALT 120, alkaline phosphatase 196. EKG is junctional rhythm. Echocardiogram reveals EF of 50-55% with severe concentric left ventricular hypertrophy, LA is severely dilated greater than 40 ML/M2, moderate mitral regurgitation, moderate tricuspid regurgitation, moderate pulmonary hypertension, moderate generalized pericardial effusion. Chest x-ray reveals atheromatosis aorta. Cardiomegaly. Heart appears increased compared to old exam. Patient is seen today in the emergency center waiting for a cardiac stepdown unit bed, cardiology consult and patient has been started on Lasix 40 mg IV every 12 hours 08/26: Patient was seen by Dr. Kim yesterday and concern is for cardiac amyloidosis and he decrease Lasix to 20 mg IV every 12 hours due to soft blood pressure readings. Today, blood pressure 104/67, heart rate 70, pulse ox 89% on room air and patient was placed on 4 L nasal cannula with pulse ox of 95%. Patient may require home oxygen therapy in order to manage acute diastolic heart failure. This will need further follow-up tomorrow. Total bilirubin 2.3, AST 124, ALT 109, alkaline phosphatase 214. Troponins were 0.206 followed by 0.208 and 0.216. Patient is scheduled for a repeat limited echo tomorrow to assess pericardial effusion. Patient will be started on colchicine anticipate possible discharge tomorrow CTA of the chest showed no definite pulmonary embolus. Mild cardiomegaly. Moderate pericardial effusion measuring 1.2 cm. Generalized anasarca, small right effusion, right atrial dilatation and upper abdominal ascites, reflux contrast in the hepatic veins correlate for fluid overload state or elevated cardiac pressures developing CHF. No angelia pulmonary edema. Some hazy density around the pancreas may relate to anasarca. 08/27:Patient is feeling slightly but better, was started on colchicine, cardiology had review the inverted Q waves along with the finding and echocardiogram and believe this is a case of possible amyloidosis patient will be treated at this point and eventually might need to be seen by one of the cardiologists in one of the large center for possible cardiac biopsy via right side heart catheter. No need to repeat heart catheter at this point no need for any invasive testing specially with patient is more stable try to adjust patient's medication and if stable to be discharged tomorrow to follow-up quickly in our office at the java lead architect's office within one week. REVIEW OF SYSTEMS Constitutional: No fever, no chills, no night sweats. No weight change. No weakness, fatigue or lethargy. No daytime sleepiness. EENT: No headache. No blurred vision or double vision, no loss of vision. No loss of Hearing, no ringing in the ears, no dizziness. No nasal drainage or congestion. No epistaxis. No sore throat. Lungs: Reports shortness of breath, improved, cough, no sputum production. No wheezing. Cardiovascular: No chest pain, no lower extremity edema. No palpitations. No paroxysmal nocturnal dyspnea. No orthopnea. No lightheadedness or dizziness. No syncopal episodes. Abdominal: No abdominal pain. No nausea, vomiting. No diarrhea. No co nstipation. No bloody or tarry stools.. No loss of appetite. Genitourinary: No dysuria, increased frequency, urgency. No urinary retention. Musculoskeletal: No myalgias. No muscle weakness, no gait dysfunction, no frequent falls. No back pain. No neck pain. Integumentary: No wounds, no lesions. No rash or pruritus. No unusual bruising. No change in hair or nails. Neurologic: No aphasia. No facial droop. No change in mentation. No head injury. No headache. No paralysis. No paresthesia. Psychiatric: No depression. No anxiety. No mood swings. Endocrine: No abnormal blood sugars. No weight change. No excessive sweating or thirst. No cold intolerance. PHYSICAL EXAMINATION Gen: This is a 70-year-old female. She appears to be in no acute distress but slightly anxious. No respiratory distress is noted. HEENT: Head is atraumatic, normocephalic. Pupils equal, round. Sclerae is anicteric. NECK: Supple. No JVD. No lymphadenopathy. No thyromegaly. LUNGS: Decreased breath sounds bilateral bases but otherwise clear to auscultation. No wheezes or rhonchi. No intercostal retractions. No accessory muscle usage. HEART: Regular rate and rhythm. No murmur. ABDOMEN: Soft. Bowel sounds are present. No masses. No tenderness. EXTREMITIES: No pedal edema. No calf tenderness. Dorsalis pedis +2 bilaterally. NEUROLOGICAL: Patient is awake, alert and oriented x3. Cranial nerves 2 through 12 are grossly intact. ASSESSMENT AND PLAN 1. Acute on chronic dyspnea secondary to acute on chronic diastolic heart failure, cardiomyopathy, pericardial effusion. Continue IV Lasix decreased to 20 mg every 12 hours, potassium increased to 20 mEq twice daily, Lopressor 25 mg twice daily, daily weights and I&O, monitor renal function and electrolytes, cardiology consult. Limited echocardiogram tomorrow. 2. Elevated troponins, acute coronary syndrome ruled out. Patient had recent heart catheterization in [place] was reported as negative for obstructive disease. Cardiology consult and repeat troponins. 3. possible amyloidosis: With infiltrate of the heart muscle causing cardiopathy to be the weight is blood work testing will be done and eventually patient might require right side heart catheter with biopsy. 4. Hypertension. Continue losartan 25 mg daily, Lopressor 25 mg twice daily. 5. Hiatal hernia status post robotic-assisted laparoscopic repair of incarcerated paraesophageal hernia in April 2020, stable. 6. Hyperlipidemia. Continue Lipitor 20 mg daily.Mild intermittent asthma, stable. 7. Gastroesophageal reflux disease and GI prophylaxis. Continue omeprazole 20 g twice daily. 8. Generalized anxiety disorder. Continue Xanax 0.25 mg twice daily. 9. DVT prophylaxis. Heparin subcu. 10. COVID-19 testing negative. Patient has been hospitalized during a pandemic. discharge planning: Possible home tomorrow and follow up as an outpatient. Objective - Vital Signs Vital signs: Vital Signs Temp 97.7 F 08/27/20 09:04 Pulse 63 08/27/20 10:55 Resp 16 08/27/20 10:55 BP 94/63 08/27/20 10:55 Pulse Ox 92 L 08/27/20 10:55 Intake & Output 08/26/20 08/27/20 08/27/20 18:59 06:59 18:59 Intake Total 900 Balance 900 Weight 61.2 kg Intake: Oral 900 Other: Voiding Method Toilet Toilet # Voids 1 - Labs CBC & Chem 7: 08/24/20 20:00 08/26/20 06:56
[2020-08-27] MEDS: BUTALB/APAP/CAFF 50-325-40MG TAB PO PRN (21:24)
[2020-08-28] MEDS: HEPARIN SODIUM,PORCINE/PF 5,000 UNIT/0.5 ML SYRINGE SQ SCH ×4 (00:05→23:05)
[2020-08-28] MEDS: MONTELUKAST 10 MG TAB PO SCH (09:17)
[2020-08-28] MEDS: ALPRAZolam 0.25 MG TAB PO SCH ×2 (09:17→20:15)
[2020-08-28] MEDS: ATORVASTATIN 20 MG TAB PO SCH (09:17)
[2020-08-28] MEDS: PANTOPRAZOLE 40 MG TABLET PO SCH ×2 (09:17→20:16)
[2020-08-28] MEDS: MULTIVITAMINS, THERA 1 EACH TAB PO SCH (09:17)
[2020-08-28] MEDS: METOPROLOL TARTRATE 25 MG TAB PO SCH ×2 (09:17→20:15)
[2020-08-28] MEDS: POTASSIUM CHLORIDE ER 20 MEQ TAB.ER PO SCH ×2 (09:18→20:15)
[2020-08-28] MEDS: FUROSEMIDE 10 MG/ML 2 ML VIAL IV SCH ×2 (09:18→20:16)
[2020-08-28] MEDS: COLCHICINE 0.6 MG EACH PO SCH ×2 (09:18→20:16)
[2020-08-28 11:49] LABS: Albumin 3.9 g/dL (3.5-5.0); Calcium 9.2 mg/dL (8.4-10.2); Total Bilirubin 2.5 mg/dL (0.2-1.3); Total Protein 6.3 g/dL (6.3-8.2)
[2020-08-28 12:32] LABS: Anisocytosis Slight; Basophils # (A) 0.1 k/uL (0-0.2); Basophils % (A) 1 %; Eosinophils # (A) 0.2 k/uL (0-0.7); Eosinophils % (A) 3 %; HCT 52.1 % (34.0-46.0); HGB 16.8 gm/dL (11.4-16.0); Hypochromasia Slight; Lymphocytes # (A) 1.6 k/uL (1.0-4.8); Lymphocytes % (A) 21 %; MCH 30.6 pg (25.0-35.0); MCHC 32.2 g/dL (31.0-37.0); Monocytes # (A) 0.7 k/uL (0-1.0); Monocytes % (A) 9 %; Neutrophils # (A) 4.8 k/uL (1.3-7.7); Neutrophils % (A) 65 %; Platelet Count 169 k/uL (150-450); RBC 5.49 m/uL (3.80-5.40); RDW 16.5 % (11.5-15.5); WBC 7.5 k/uL (3.8-10.6)
[2020-08-28 13:04] LABS: Poikilocytosis (M) Present
--- NOTE | 2020-08-28 13:12 | P.PN ---
Subjective Progress Note Date: 08/28/20 The patient is a 70-year-old female with past medical history of chronic shortness of breath, hypertension, and dyslipidemia, who presented to the hospital with increased shortness of breath. She was found to have a moderate sized pericardial effusion on initial echo. Repeat echocardiogram shows severe LVH with small to moderate pericardial effusion with pericardial thickening. The patient was interviewed and examined lying comfortably in bed. She states she is gradually starting to feel better. She states she did not have shortness of breath while showering. No chest pain or chest pressure. No dizziness, or lightheadedness. GENERAL: Well-appearing, well-nourished and in no acute distress. NECK: Supple without JVD or thyromegaly. LUNGS: Breath sounds clear to auscultation bilaterally. Respiration equal and unlabored. No wheezes, rales or rhonchi. HEART: Regular rate and rhythm without murmurs, rubs or gallops. S1 and S2 heard. EXTREMITIES: Normal range of motion, no edema. No clubbing or cyanosis. Peripheral pulses intact and strong. VITALS: Blood pressure 117/78, heart rate 70, respiratory rate 16, temp 97.7F TELEMETRY: Sinus mechanism with heart rates in the 70s. No arrhythmias LABS: WBC 7.5, hemoglobin 16.8, platelet 169, sodium 134, potassium 4.0, BUN 19, creatinine 1.04 IMPRESSION: Restrictive cardiomyopathy, severe LVH, Pericardial effusion, improving Abnormal troponins, previous cardiac cath unremarkable Hypertension Dyslipidemia PLAN: Continue diuresis for today; consider adding tomorrow to avoid dehydration Free Lambda Lt chain to be drawn Further recommendations based on clinical course The patient has been seen and evaluated. Plan of care has been reviewed and agreed upon by Dr Albert. Objective - Vital Signs Vital signs: Vital Signs Temp 97.7 F 08/28/20 08:00 Pulse 70 08/28/20 11:29 Resp 16 08/28/20 11:29 BP 117/78 08/28/20 11:29 Pulse Ox 95 08/28/20 11:29 Intake & Output 08/27/20 08/28/20 08/28/20 18:59 06:59 18:59 Intake Total 480 240 Output Total 800 Balance 480 -800 240 Weight 61.7 kg 61.4 kg Intake: Oral 480 240 Output: Urine 800 Other: Voiding Method Toilet # Voids 1 1 - Labs CBC & Chem 7: 08/28/20 11:10 08/28/20 11:10 Labs: Abnormal Lab Results - Last 24 Hours (Table) 08/28/20 08/28/20 Range/Units 11:10 11:10 RBC 5.49 H (3.80-5.40) m/uL Hgb 16.8 H (11.4-16.0) gm/dL Hct 52.1 H (34.0-46.0) % RDW 16.5 H (11.5-15.5) % Sodium 134 L (137-145) mmol/L Chloride 93 L (98-107) mmol/L Carbon Dioxide 32 H (22-30) mmol/L BUN 20 H (7-17) mg/dL Total Bilirubin 2.5 H (0.2-1.3) mg/dL AST 107 H (14-36) U/L ALT 108 H (4-34) U/L Alkaline Phosphatase 230 H (38-126) U/L
--- NOTE | 2020-08-28 14:25 | P.PN ---
Subjective Progress Note Date: 08/28/20 This is a 70-year-old female patient of Dr. Liu with past medical history of paraesophageal hiatal hernia, severe gastroesophageal reflux disease, chronic bronchial asthma mild intermittent, hypertension, hyperlipidemia, Patient was last hospitalized at [facility] under the care of Dr. Shirley for robotic-assisted laparoscopic repair of incarcerated paraesophageal hernia which was on 04/19/2020. Patient normally spends part of her year in [place]. While in [place], patient developed shortness of breath which she states started after increased stress that was going on between her, her daughters and her sisters. She states she just didn't feel well and she was taken to the clinic and from there to [facility] on 07/17/2020 for evaluation. She was diagnosed with non-ST elevated myocardial infarction. She had a CTA of the chest was negative for pulmonary embolism, thoracic aortic dissection or aneurysmal dilatation. There is cardiomegaly with reflux of c ontrast into the IVC and hepatic veins likely secondary to right-sided heart failure. Troponin was 1.161. Patient was diagnosed with non-ST elevated myocardial infarction. Patient underwent a heart catheterization in April before her hiatal hernia surgery which was reported to the patient as being negative. Patient underwent a heart catheterization which would be her second one that found nonobstructive coronary artery disease and she was also diagnosed with diastolic heart failure. Although echo report is not available in the records obtained from [facility], EF was documented as normal. Patient was discharged from the hospital in new medications included Cozaar, Lo pressor and Lasix with potassium. She has had a follow-up appointment with her awning hanger in [place] and is recently returned to [place]. Her awning hanger in [place] is Dr. Soria. Patient complains of shortness of breath and has been persistent as well as edema to the lower extremities. No fever or chills. No cough. She denies having Covid 19. Patient presented to [facility] emergency center for evaluation. She was found to be afebrile, heart rate 65, respiratory rate 26, blood pressure 125/89, pulse ox 92% on room air WBC 8.2, hemoglobin 16.9, platelet count 204. Sodium 136, potassium 3.6, chloride 103, CO2 24, BUN 21 and creatinine 0.83. Blood sugar 108. Troponin 0.206. Liver function tests were elevated with total bilirubin 2.1, AST 154, ALT 120, alkaline phosphatase 196. EKG is junctional rhythm. Echocardiogram reveals EF of 50-55% with severe concentric left ventricular hypertrophy, LA is severely dilated greater than 40 ML/M2, moderate mitral regurgitation, moderate tricuspid regurgitation, moderate pulmonary hyper tension, moderate generalized pericardial effusion. Chest x-ray reveals atheromatosis aorta. Cardiomegaly. Heart appears increased compared to old exam. Patient is seen today in the emergency center waiting for a cardiac stepdown unit bed, cardiology consult and patient has been started on Lasix 40 mg IV every 12 hours 08/26: Patient was seen by Dr. Kim yesterday and concern is for cardiac amyloidosis and he decrease Lasix to 20 mg IV every 12 hours due to soft blood pressure readings. Today, blood pressure 104/67, heart rate 70, pulse ox 89% on room air and patient was placed on 4 L nasal cannula with pulse ox of 95%. Patient may require home oxygen therapy in order to manage acute diastolic heart failure. This will need further follow-up tomorrow. Total bilirubin 2.3, AST 124, ALT 109, alkaline phosphatase 214. Troponins were 0.206 followed by 0.208 and 0.216. Patient is scheduled for a repeat limited echo tomorrow to assess pericardial effusion. Patient will be started on colchicine anticipate possible discharge tomorrow CTA of the chest showed no definite pulmonary embolus. Mild cardiomegaly. Moderate pericardial effusion measuring 1.2 cm. Generalized anasarca, small right effusion, right atrial dilatation and upper abdominal ascites, reflux contrast in the hepatic veins correlate for fluid overload state or elevated cardiac pressures developing CHF. No angelia pulmonary edema. Some hazy density around the pancreas may relate to anasarca. 08/27:Patient is feeling slightly but better, was started on colchicine, cardiology had review the inverted Q waves along with the finding and echocardiogram and believe this is a case of possible amyloidosis patient will be treated at this point and eventually might need to be seen by one of the cardiologists in one of the large center for possible cardiac biopsy via right side heart catheter. No need to repeat heart catheter at this point no need for any invasive testing specially with patient is more stable try to adjust patient's medication and if stable to be discharged tomorrow to follow-up quickly in our office at the awning hanger's office within one week. patient examined bedside is feeling better vitals reviewed patient temp of 97.7 pulse 67 blood pressure 106/74 oxygen saturation 98% on 2 L. Her labs are reviewed patient had a sodium 136 potassium 3.5 chloride 95 BUN 20 creatinine 1.01 bicarb of 36 total bilirubin is 2.3. Patient was evaluated by cardiology with concern for restrictive cardiomyopathy based on patient's finding on echocardiogram. There is a concern cardiac amyloidosis and a cardiac MRI is recommended as outpatient. Diuretics will be continued for today with possible discontinuation tomorrow. free lambda the light chains ordered with immunofixation. Continue Lasix 20 IV twice a day for today with possible discontinuation tomorrow. REVIEW OF SYSTEMS Constitutional: No fever, no chills, no night sweats. No weight change. No weakness, fatigue or lethargy. No daytime sleepiness. EENT: No headache. No blurred vision or double vision, no loss of vision. No loss of Hearing, no ringing in the ears, no dizziness. No nasal drainage or congestion. No epistaxis. No sore throat. Lungs: Reports shortness of breath, improved, cough, no sputum production. No wheezing. Cardiovascular: No chest pain, no lower extremity edema. No palpitations. No paroxysmal nocturnal dyspnea. No orthopnea. No lightheadedness or dizziness. No syncopal episodes. Abdominal: No abdominal pain. No nausea, vomiting. No diarrhea. No constipation. No bloody or tarry stools.. No loss of appetite. Genitourinary: No dysuria, increased frequency, urgency. No urinary retention. Musculoskeletal: No myalgias. No muscle weakness, no gait dysfunction, no frequent falls. No back pain. No neck pain. Integumentary: No wounds, no lesions. No rash or pruritus. No unusual bruising. No change in hair or nails. Neurologic: No aphasia. No facial droop. No change in mentation. No head injury. No headache. No paralysis. No paresthesia. Psychiatric: No depression. No anxiety. No mood swings. Endocrine: No abnormal blood sugars. No weight change. No excessive sweating or thirst. No cold intolerance. Objective - Vital Signs Vital signs: Vital Signs Temp 97.7 F 08/28/20 08:00 Pulse 70 08/28/20 11:29 Resp 16 08/28/20 11:29 BP 117/78 08/28/20 11:29 Pulse Ox 95 08/28/20 11:29 Intake & Output 08/27/20 08/28/20 08/28/20 18:59 06:59 18:59 Intake Total 480 480 Output Total 800 Balance 480 -800 480 Weight 61.7 kg 61.4 kg Intake: Oral 480 480 Output: Urine 800 Other: Voiding Method Toilet # Voids 1 1 - Exam - Constitutional General appearance: cooperative, no acute distress, obese - EENT Eyes: anicteric sclerae, PERRLA, normal appearance ENT: hearing grossly normal - Neck Neck: no lymphadenopathy, normal ROM, no other, no rigidity, no stridor, no thyromegaly - Respiratory Respiratory: bilateral: Please air entry - Cardiovascular Rhythm: regular Heart sounds: normal: S1, S2 Abnormal Heart Sounds: no systolic murmur, no diastolic murmur, no rub, no S3 Gallop, no S4 Gallop, no click, no other - Gastrointestinal General gastrointestinal: normal bowel sounds, soft - Integumentary Integumentary: no rash - Neurologic Neurologic: CNII-XII intact - Musculoskeletal Musculoskeletal: gait normal, strength equal bilaterally - Psychiatric Psychiatric: A&O x's 3, appropriate affect - Labs CBC & Chem 7: 08/28/20 11:10 08/28/20 11:10 Labs: Abnormal Lab Results - Last 24 Hours (Table) 08/28/20 08/28/20 Range/Units 11:10 11:10 RBC 5.49 H (3.80-5.40) m/uL Hgb 16.8 H (11.4-16.0) gm/dL Hct 52.1 H (34.0-46.0) % RDW 16.5 H (11.5-15.5) % Sodium 134 L (137-145) mmol/L Chloride 93 L (98-107) mmol/L Carbon Dioxide 32 H (22-30) mmol/L BUN 20 H (7-17) mg/dL Total Bilirubin 2.5 H (0.2-1.3) mg/dL AST 107 H (14-36) U/L ALT 108 H (4-34) U/L Alkaline Phosphatase 230 H (38-126) U/L Assessment and Plan Plan: 1. Acute on chronic dyspnea secondary to restrictive cardiomyopathy, acute on chronic diastolic heart failure, pericardial effusion. Continue IV Lasix decreased to 20 mg every 12 hours, potassium increased to 20 mEq twice daily, Lopressor 25 mg twice daily, daily weights and I&O, monitor renal function and electrolytes, cardiology consult. Limited echocardiogram results pending 2. Elevated troponins, acute coronary syndrome ruled out. Patient had recent heart catheterization in [place] was reported as negative for obstructive disease. Cardiology consult and repeat troponins. 3. possible cardiac amyloidosis: Lambda light chains and immunofixation ordered Cardiac MRI as outpatient to rule out cardiopathy to be the weight is blood work testing will be done and eventually patient might require right side heart catheter with biopsy. 4. Hypertension. Continue losartan 25 mg daily, Lopressor 25 mg twice daily. 5. Hiatal hernia status post robotic-assisted laparoscopic repair of incarcerated paraesophageal hernia in April 2020, stable. 6. Hyperlipidemia. Continue Lipitor 20 mg daily.Mild intermittent asthma, stable. 7. Gastroesophageal reflux disease and GI prophylaxis. Continue omeprazole 20 g twice daily. 8. Generalized anxiety disorder. Continue Xanax 0.25 mg twice daily. 9. DVT prophylaxis. Heparin subcu. 10. COVID-19 testing negative. Patient has been hospitalized during a pandemic. discharge planning: Possible home tomorrow and follow up as an outpatient.
--- NOTE | 2020-08-28 15:30 | ECHOF ---
Referral Reason:assess pericardial effusion MEASUREMENTS -------- HEIGHT: 132.1 cm WEIGHT: 60.8 kg BP: IVSd: 1.2 cm (0.6 - 1.1) LVIDd: 3.5 cm (3.9 - 5.3) LVPWd: 1.4 cm (0.6 - 1.1) EDV(Teich): 52 ml IVSs: 1.6 cm LVIDs: 2.3 cm LVPWs: 1.6 cm %IVS Thck: 31 % ESV(Teich): 19 ml EF(Teich): 63 % %FS: 33 % SV(Teich): 32 ml LA Diam: 4.3 cm (2.7 - 3.8) RVIDd: 3.6 cm (< 3.3) LALs A4C: 5.5 cm LAAs A4C: 18.2 cm LAESV A-L A4C: 52 ml LAESV MOD A4C: 49 ml LALs A2C: 5.8 cm LAAs A2C: 21.0 cm LAESV A-L A2C: 65 ml LAESV MOD A2C: 62 ml LAESV(A-L): 59 ml LAESV Index (A-L): 41.89 ml/m Ao Diam: 3.4 cm (2.0 - 3.7) LA Diam: 4.6 cm (2.7 - 3.8) AV Cusp: 1.2 cm (1.5 - 2.6) EPSS: 0.3 cm TR Vmax: 2.12 m/s TR maxP.92 mmHg RAP: 5.00 mmHg RVSP: 22.92 mmHg MV EF SLOPE: 62.42 mm/s (70 - 150) MV EXCURSION: 16.66 mm (> 18.000) FINDINGS -------- Sinus rhythm. This was a technically good study. The left ventricular size is normal. There is mild concentric left ventricular hypertrophy. Overa ll left ventricular systolic function is low-normal with, an EF between 50 - 55 %. The right ventricle is normal in size. Normal LA size by volume 22+/-6 ml/m2. The right atrial size is normal. The aortic valve is trileaflet, and appears structurally normal. No aortic stenosis or regurgitation. Mild mitral regurgitation is present. Mild tricuspid regurgitation present. Right ventricular systolic pressure is normal at < 35 mmHg. There is no pulmonic regurgitation present. There is a small, generalized pericardial effusion present. Small Pleural Effusion. CONCLUSIONS -------- 1. The left ventricular size is normal. 2. There is mild concentric left ventricular hypertrophy. 3. The right ventricle is normal in size. 4. Normal LA size by volume 22+/-6 ml/m2. 5. The right atrial size is normal. 6. The aortic valve is trileaflet, and appears structurally normal. No aortic stenosis or regurgitati on. 7. Mild mitral regurgitation is present. 8. Mild tricuspid regurgitation present. 9. There is a small, generalized pericardial effusion present. 10. Small Pleural Effusion. BROACH GRINDER: Re Guidry RDCS
[2020-08-29] MEDS: ATORVASTATIN 20 MG TAB PO SCH (08:19)
[2020-08-29] MEDS: MULTIVITAMINS, THERA 1 EACH TAB PO SCH (08:19)
[2020-08-29] MEDS: MONTELUKAST 10 MG TAB PO SCH (08:19)
[2020-08-29] MEDS: METOPROLOL TARTRATE 25 MG TAB PO SCH (08:19)
[2020-08-29] MEDS: COLCHICINE 0.6 MG EACH PO SCH (08:19)
[2020-08-29] MEDS: POTASSIUM CHLORIDE ER 20 MEQ TAB.ER PO SCH (08:19)
[2020-08-29] MEDS: ALPRAZolam 0.25 MG TAB PO SCH (08:19)
[2020-08-29] MEDS: PANTOPRAZOLE 40 MG TABLET PO SCH (08:19)
[2020-08-29] MEDS: FUROSEMIDE 10 MG/ML 2 ML VIAL IV SCH (08:19)
[2020-08-29] MEDS: HEPARIN SODIUM,PORCINE/PF 5,000 UNIT/0.5 ML SYRINGE SQ SCH (08:20)
[2020-08-29 09:11] VITALS: TEMP 97.7
--- NOTE | 2020-08-29 11:23 | P.DS ---
Providers Date of admission: 08/24/20 21:28 Attending physician: Evan Liu Consults: 08/25/20 07:57 Consult Physician Routine Consulting Provider: Deon Kim Consult Reason/Comments: hx of myocarditis Do you want consulting provider notified?: Yes 08/29/20 09:54 Consult Physician Routine Consulting Provider: Paresh Madrid Consult Reason/Comments: elevated free lamda LC Do you want consulting provider notified?: Yes Primary care physician: [facility] Course: his is a 70-year-old female patient of Dr. Liu with past medical history of paraesophageal hiatal hernia, severe gastroesophageal reflux disease, chronic bronchial asthma mild intermittent, hypertension, hyperlipidemia, Patient was last hospitalized at [facility] under the care of Dr. Shirley for robotic-assisted laparoscopic repair of incarcerated paraesophageal hernia which was on 04/19/2020. Patient normally spends part of her year in [place]. While in [place], patient developed shortness of breath which she states started after increased stress that was going on between her, her daughters and her sisters. She states she just didn't feel well and she was taken to the clinic and from there to [facility] on 07/17/2020 for evaluation. She was diagnosed with non-ST elevated myocardial infarction. She had a CTA of the chest was negative for pulmonary embolism, thoracic aortic dissection or aneurysmal dilatation. There is cardiomegaly with reflux of contrast into the IVC and hepatic veins likely secondary to right-sided heart failure. Troponin was 1.161. Patient was diagnosed with non-ST elevated myocardial infarction. Patient underwent a heart catheterization in April before her hiatal hernia surgery which was reported to the patient as being negative. Patient underwent a heart catheterization which would be her second one that found nonobstructive coronary artery disease and she was also diagnosed with diastolic heart failure. Although echo report is not available in the records obtained from [facility], EF was documented as normal. Patient was discharged from the hospital in new medications included Cozaar, Lopressor and Lasix with potassium. She has had a follow-up appointment with her solution engineer in [place] and is recently returned to [place]. Her solution engineer in [place] is Dr. Soria. Patient complains of shortness of b reath and has been persistent as well as edema to the lower extremities. No fever or chills. No cough. She denies having Covid 19. Patient presented to [facility] emergency center for evaluation. She was found to be afebrile, heart rate 65, respiratory rate 26, blood pressure 125/89, pulse ox 92% on room air WBC 8.2, hemoglobin 16.9, platelet count 204. Sodium 136, potassium 3.6, chloride 103, CO2 24, BUN 21 and creatinine 0.83. Blood sugar 108. Troponin 0.206. Liver function tests were elevated with total bilirubin 2.1, AST 154, ALT 120, alkaline phosphatase 196. EKG is junctional rhythm. Echocardiogram reveals EF of 50-55% with severe concentric left ventricular hypertrophy, LA is severely dilated greater than 40 ML/M2, moderate mitral regurgitation, moderate tricuspid regurgitation, moderate pulmonary hypertension, moderate generalized pericardial effusion. Chest x-ray reveals atheromatosis aorta. Cardiomegaly. Heart appears increased compared to old exam. Patient is seen today in the emergency center waiting for a cardiac stepdown unit bed, cardiology consult and patient has been started on Lasix 40 mg IV every 12 hours 08/26: Patient was seen by Dr. Kim yesterday and concern is for cardiac amyloidosis and he decrease Lasix to 20 mg IV every 12 hours due to soft blood pressure readings. Today, blood pressure 104/67, heart rate 70, pulse ox 89% on room air and patient was placed on 4 L nasal cannula with pulse ox of 95%. Patient may require home oxygen therapy in order to manage acute diastolic heart failure. This will need further follow-up tomorrow. Total bilirubin 2.3, AST 124, ALT 109, alkaline phosphatase 214. Troponins were 0.206 followed by 0.208 and 0.216. Patient is scheduled for a repeat limited echo tomorrow to assess pericardial effusion. Patient will be started on colchicine anticipate possible discharge tomorrow CTA of the chest showed no definite pulmonary embolus. Mild cardiomegaly. Moderate pericardial effusion measuring 1.2 cm. Generalized anasarca, small right effusion, right atrial dilatation and upper abdominal ascites, reflux contrast in the hepatic veins correlate for fluid overload state or elevated cardiac pressures developing CHF. No angelia pulmonary edema. Some hazy density around the pancreas may relate to anasarca. 08/27:Patient is feeling slightly but better, was started on colchicine, cardiology had review the inverted Q waves along with the finding and echocardiogram and believe this is a case of possible amyloidosis patient will be treated at this point and eventually might need to be seen by one of the cardiologists in one of the large center for possible cardiac biopsy via right side heart catheter. No need to repeat heart catheter at this point no need for any invasive testing specially with patient is more stable try to adjust patient's medication and if stable to be discharged tomorrow to follow-up quickly in our office at the solution engineer's office within one week. patient examined bedside is feeling better vitals reviewed patient temp of 97.7 pulse 67 blood pressure 106/74 oxygen saturation 98% on 2 L. Her labs are reviewed patient had a sodium 136 potassium 3.5 chloride 95 BUN 20 creatinine 1.01 bicarb of 36 total bilirubin is 2.3. Patient was evaluated by cardiology with concern for restrictive cardiomyopathy based on patient's finding on echocardiogram. There is a concern cardiac amyloidosis and a cardiac MRI is recommended as outpatient. Diuretics will be continued for today with possible discontinuation tomorrow. free lambda the light chains ordered with immunofixation. Continue Lasix 20 IV twice a day for today with possible d iscontinuation tomorrow. 08/29 patient examined chest pain or lower extremity swelling. Vitals are stable with temp of 97.7 pulse 70 respiratory rate 16 blood pressure 131/71. Patient was evaluated by cardiology today plan to keep patient on 20 mg Lasix at home. Patient is recommended to increase the dose to 40 if she notices any swelling in the lower extremity or feels short of breath. Colchicine discontinued as patient continues to have diarrhea and her kidney function is getting worse. Patient's free light chains are positive. Oncology recommendations pending Discharge diagnoses 1. Acute on chronic dyspnea secondary to restrictive cardiomyopathy, acute on chronic diastolic heart failure, pericardial effusion. 2. Elevated troponins, acute coronary syndrome ruled out. 3. possible cardiac amyloidosis: 4. Hypertension. 5. Hiatal hernia status post robotic-assisted laparoscopic repair of incarcerated paraesophageal hernia in April 2020, stable. 6. Hyperlipidemia. 7. Gastroesophageal reflux disease 8. Generalized anxiety disorder. Disposition discharge home with self-care Patient Condition at Discharge: Serious Plan - Discharge Summary Discharge Rx Participant: No New Discharge Prescriptions: Continue ALPRAZolam [Xanax] 0.25 mg PO BID Multivitamin [Multivitamins Adult Gummies] 1 tab PO DAILY Atorvastatin [Lipitor] 20 mg PO DAILY Furosemide [Lasix] 20 mg PO DAILY Montelukast [Singulair] 10 mg PO DAILY Fexofenadine/Pseudoephedrine [Annalee-D 24 Hour Tablet] 1 tab PO DAILY Ferrous Sulfate [Iron (65 MG Elemental)] 325 mg PO DAILY Potassium Chloride ER [K-Dur 10] 10 meq PO DAILY Metoprolol Tartrate [Lopressor] 25 mg PO BID Losartan Potassium [Cozaar] 25 mg PO DAILY Omeprazole 20 mg PO BID Discharge Medication List ALPRAZolam [Xanax] 0.25 mg PO BID 11/01/18 [History] Multivitamin [Multivitamins Adult Gummies] 1 tab PO DAILY 11/01/18 [History] Atorvastatin [Lipitor] 20 mg PO DAILY 04/14/20 [History] Ferrous Sulfate [Iron (65 MG Elemental)] 325 mg PO DAILY 08/24/20 [History] Fexofenadine/Pseudoephedrine [Annalee-D 24 Hour Tablet] 1 tab PO DAILY 08/24/20 [History] Furosemide [Lasix] 20 mg PO DAILY 08/24/20 [History] Losartan Potassium [Cozaar] 25 mg PO DAILY 08/24/20 [History] Metoprolol Tartrate [Lopressor] 25 mg PO BID 08/24/20 [History] Montelukast [Singulair] 10 mg PO DAILY 08/24/20 [History] Omeprazole 20 mg PO BID 08/24/20 [History] Potassium Chloride ER [K-Dur 10] 10 meq PO DAILY 08/24/20 [History] Follow up Appointment(s)/Referral(s): Paresh Madrid MD [STAFF PHYSICIAN] - 1 Week Leander Soria MD [STAFF PHYSICIAN] - 1 Week Evan Liu MD [Primary Care Provider] - 1 Week Discharge Disposition: HOME SELF-CARE
--- NOTE | 2020-08-29 11:48 | P.CONS ---
History of Present Illness - Reason for Consult Consult date: 08/29/20 Light chain abnormality, ?amyloid - History of Present Illness The patient is a 70-year-old white female with multiple medical problems. The patient had had a hernia surgery in 04/22 and subsequently lost about 30 pounds. She states that she was in her usual state of health until about 07/21, when she developed chest discomfort and shortness of breath while in [place]. She was admitted to the hospital and diagnosed with NSTEMI, and congestive heart failure. She was placed on treatment for the same, but has remained short of breath. She did undergo cardiac catheterization but it does not appear that she had any specific intervention required. The patient remained short of breath also complained of intermittent lower extremity swelling. She therefore came back into the hospital and was admitted for further management. Investigations so far include a chest x-ray and CTA which was essentially negative other than showing a possible pericardial effusion. She then had an echocardiogram, which confirmed pericardial effusion without evidence of definite compromise. Echocardiogram features however were s uspicious for cardiac amyloidosis. Interestingly the patient gives a history of amyloidosis in her mother, and a paternal aunt. She therefore had lambda light chain levels order which were increased at 73.4 mg/L. Consult was therefore placed a further evaluation and recommendations Patient denied any prior history of blood related problems or malignancy. No history of any unusual bleeding or bruising, especially in the perioral area, tongue enlargement, significant difficulty in swallowing. Review of Systems Constitutional: Reports fatigue, Reports weight loss Eyes: denies blurred vision, denies pain Ears: deny: decreased hearing, ear discharge, earache, tinnitus Ears, nose, mouth and throat: Denies headache, Denies sore throat Cardiovascular: Reports as per HPI, Reports leg edema, Reports shortness of breath Respiratory: Reports dyspnea Gastrointestinal: Denies abdominal pain, Denies diarrhea, Denies nausea, Denies vomiting Genitourinary: Denies dysuria, Denies hematuria Menstruation: Reports postmenopausal Musculoskeletal: Reports muscle weakness Integumentary: Denies pruritus, Denies rash Neurological: Reports weakness Psychiatric: Denies anxiety, Denies depression Endocrine: Reports flushing Hematologic/Lymphatic: Reports as per HPI Past Medical History Past Medical History: Asthma, Chest Pain / Angina, GERD/Reflux, Hyperlipidemia, Hypertension, Myocardial Infarction (OR) Additional Past Medical History / Comment(s): Hiatal Hernia, hx 2 ulcers in stomach; Bursitis both knees. Hx pancreatitis, SOB w/exertion due to hernia Last Myocardial Infarction Date:: 07/2020 History of Any Multi-Drug Resistant Organisms: None Reported Past Surgical History: Back Surgery, Heart Catheterization, Heart Catheterization With Stent, Hysterectomy, Orthopedic Surgery, Tonsillectomy Additional Past Surgical History / Comment(s): Back surgery with hardware, L carpal tunnel, L foot surgery, Past Anesthesia/Blood Transfusion Reactions: Previous Problems w/ Anesthesia, Motion Sickness, Postoperative Nausea & Vomiting (PONV) Additional Past Anesthesia/Blood Transfusion Reaction / Comm: was told stopped breathing during EGD Past Psychological History: Depression Smoking Status: Never smoker Past Alcohol Use History: Occasional Past Drug Use History: None Reported - Past Family History Mother Family Medical History: No Reported History Father Family Medical History: No Reported History Additional Family Medical History / Comment(s): Father lived to be 90yrs. Medications and Allergies Home Medications Medication Instructions Recorded Confirmed Type ALPRAZolam [Xanax] 0.25 mg PO BID 11/01/18 08/24/20 History Multivitamin [Multivitamins Adult 1 tab PO DAILY 11/01/18 08/24/20 History Gummies] Atorvastatin [Lipitor] 20 mg PO DAILY 04/14/20 08/24/20 History Ferrous Sulfate [Iron (65 MG 325 mg PO DAILY 08/24/20 08/24/20 History Elemental)] Fexofenadine/Pseudoephedrine 1 tab PO DAILY 08/24/20 08/24/20 History [Annalee-D 24 Hour Tablet] Furosemide [Lasix] 20 mg PO DAILY 08/24/20 08/24/20 History Losartan Potassium [Cozaar] 25 mg PO DAILY 08/24/20 08/24/20 History Metoprolol Tartrate [Lopressor] 25 mg PO BID 08/24/20 08/24/20 History Montelukast [Singulair] 10 mg PO DAILY 08/24/20 08/24/20 History Omeprazole 20 mg PO BID 08/24/20 08/24/20 History Potassium Chloride ER [K-Dur 10] 10 meq PO DAILY 08/24/20 08/24/20 History Allergies Allergy/AdvReac Type Severity Reaction Status Date / Time No Known Allergies Allergy Verified 08/24/20 20:20 Physical Exam Vitals: Vital Signs Temp Pulse Resp BP Pulse Ox 08/29/20 08:00 97.7 F 70 16 113/71 94 L 08/29/20 04:00 64 16 104/70 97 08/28/20 23:36 66 08/28/20 20:00 98.1 F 67 16 105/60 98 08/28/20 16:00 69 16 110/70 95 08/28/20 11:29 70 16 117/78 95 Intake and Output 08/28/20 08/29/20 08/29/20 22:59 06:59 14:59 Intake Total 240 780 Output Total 1100 300 Balance 240 -1100 480 Intake: Oral 240 780 Output: Urine 1100 300 Other: Weight 60.9 kg - Constitutional General appearance: no acute distress - EENT Eyes: EOMI, PERRLA ENT: hearing grossly normal, normal oropharynx - Neck Neck: no lymphadenopathy Carotids: bilateral: upstroke normal Thyroid: bilateral: normal size - Respiratory Respiratory: bilateral: CTA - Cardiovascular Rhythm: regular Heart sounds: normal: S1, S2 - Gastrointestinal General gastrointestinal: normal bowel sounds, soft - Integumentary Integumentary: normal - Neurologic Neurologic: CNII-XII intact - Musculoskeletal Musculoskeletal: generalized weakness, strength equal bilaterally - Psychiatric Psychiatric: A&O x's 3, appropriate affect Results CBC & Chem 7: 08/28/20 11:10 08/28/20 11:10 Labs: Abnormal Lab Results - Last 24 Hours (Table) 08/28/20 08/28/20 08/28/20 Range/Units 11:10 11:10 11:10 RBC 5.49 H (3.80-5.40) m/uL Hgb 16.8 H (11.4-16.0) gm/dL Hct 52.1 H (34.0-46.0) % RDW 16.5 H (11.5-15.5) % Sodium 134 L (137-145) mmol/L Chloride 93 L (98-107) mmol/L Carbon Dioxide 32 H (22-30) mmol/L BUN 20 H (7-17) mg/dL Total Bilirubin 2.5 H (0.2-1.3) mg/dL AST 107 H (14-36) U/L ALT 108 H (4-34) U/L Alkaline Phosphatase 230 H (38-126) U/L Free Lambda LC, Quant 73.40 H (0.57-2.63) mg/dL Comments: Echocardiogram, and EKG report reviewed Chest x-ray: report reviewed CT scan - chest: report reviewed Assessment and Plan (1) Light chain disease Narrative/Plan: The testing for the same was ordered due to concerns for cardiac amyloidosis, based on the echocardiogram appearance and her family history. Lambda light chain was found to be elevated. However this is quite nonspecific. The patient will need additional workup with kappa light chains and k/l ratio. Serum immunofixation was ordered. Additionally protein electrophoresis will also be needed. I will also order a spot urine immunofixation. - The implications of testing so far were discussed in detail with the patient, the admitting service and also cardiology. The results of oral quite nonspecific. In addition of cardiac amyloidosis suspected, this would not be ruled out, if complete protein electrophoresis studies do not show any specific monoclonal process. Conversely, if a monoclonal process is detected, it would not rule in cardiac amyloidosis as this may be unrelated especially in this age group - Therefore, if amyloidosis is suspected, the patient will need a tissue biopsy. She has no evidence of unusual bleeding or bruising or any other symptoms, which would make yield from in nontargeted procedure such as abdominal fat pad biopsy quite low. Therefore at this time endomyocardial biopsy will need to be considered. I will also check urinalysis. If the patient does have significant proteinuria, and the kidney could be another target - Above discussed in detail with the admitting service and cardiology. If the patient is medically stable, she can be discharged whenever felt to be stable by them. Further hematologic follow-up can be done as an outpatient Current Visit: Yes Status: Acute Code(s): D89.89 - OTH DISRD INVOLVING THE IMMUNE MECHANISM, NEC SNOMED Code(s): 93653178 (2) Polycythemia Narrative/Plan: This is most likely secondary, as hemoglobin was actually normal in early 2020. This could be due to hemoconcentration from diuresis and/or chronic hypoxia from her medications. I will check erythropoietin level. If This indicates any suspicion for a primary process, then additional testing will be done as an outpatient Current Visit: Yes Status: Acute Code(s): D75.1 - SECONDARY POLYCYTHEMIA SNOMED Code(s): 457112150 Plan: Defer to the admitting service for management of other medical problems
--- NOTE | 2020-08-29 12:23 | P.PN ---
Subjective Progress Note Date: 08/29/20 The patient is a 70-year-old female with past medical history of chronic shortness of breath, hypertension, and dyslipidemia, who presented to the hospital with increased shortness of breath. She was found to have a moderate sized pericardial effusion on initial echo. Repeat echocardiogram shows severe LVH with small to moderate pericardial effusion with pericardial thickening. The patient was interviewed and examined lying comfortably in bed. She states she is gradually starting to feel better. She states she did not have shortness of breath while showering or when ambulating in the halls. No chest pain or chest pressure. No dizziness, or lightheadedness. GENERAL: Well-appearing, well-nourished and in no acute distress. NECK: Supple without JVD or thyromegaly. LUNGS: Breath sounds clear to auscultation bilaterally. Respiration equal and unlabored. No wheezes, rales or rhonchi. HEART: Regular rate and rhythm without murmurs, rubs or gallops. S1 and S2 heard. EXTREMITIES: Normal range of motion, no edema. No clubbing or cyanosis. Peripheral pulses intact and strong. VITALS: Blood pressure 113/71, heart rate 70, respiratory rate 16, temp 97.7F TELEMETRY: Sinus mechanism with heart rates in the 70s. No arrhythmias LABS: Free lambda light chain 73.40 IMPRESSION: Restrictive cardiomyopathy, severe LVH, Pericardial effusion, improving Abnormal troponins, previous cardiac cath unremarkable Hypertension Dyslipidemia PLAN: Reduce Lasix to 20 mg daily Consult hematology for elevated free Lambda Patient may be discharged from the cardiac standpoint with outpatient follow-up with primary general surgeon (Dr Soria) in 1-2 weeks The patient has been seen and evaluated. Plan of care has been reviewed and agreed upon by Dr Albert. Objective - Vital Signs Vital signs: Vital Signs Temp 97.7 F 08/29/20 08:00 Pulse 70 08/29/20 08:00 Resp 16 08/29/20 12:00 BP 113/71 08/29/20 08:00 Pulse Ox 94 L 08/29/20 08:00 Intake & Output 08/28/20 08/29/20 08/29/20 18:59 06:59 18:59 Intake Total 720 780 Output Total 1100 300 Balance 720 -1100 480 Weight 61.4 kg 60.9 kg Intake: Oral 720 780 Output: Urine 1100 300 - Labs CBC & Chem 7: 05/29/21 11:10 08/28/20 11:10 Labs: Abnormal Lab Results - Last 24 Hours (Table) 08/28/20 08/28/20 Range/Units 11:10 11:10 RBC 5.49 H (3.80-5.40) m/uL Hgb 16.8 H (11.4-16.0) gm/dL Hct 52.1 H (34.0-46.0) % RDW 16.5 H (11.5-15.5) % Free Lambda LC, Quant 73.40 H (0.57-2.63) mg/dL
[2020-08-29 12:35] VITALS: BP 95/60; PULSE 64
[2020-08-29 22:44] LABS: Protein, Total 6.2 g/dL (6.2-8.2)
[2020-08-30] MEDS ORDERED: FUROSEMIDE 20 MG TAB PO SCH (09:00)
[2020-08-31 13:38] LABS: Albumin 3.96 g/dL (3.80-4.90); Gamma Globulin 0.71 g/dL (0.70-1.50)
[2020-08-31 14:17] LABS: Free Kappa Lt Chain Qnt, Serum 1.38 mg/dL (0.33-1.94)
== END 2020-08-29 14:41 | disposition home or self-care (01) | DRG 292 ==
LOC: EC 19:23 → 3SCARD 21:28
PROVIDERS: ADMIT Internal Medicine Geriatric Medicine; ATTEND Internal Medicine Geriatric Medicine
DX: I11.0 Hypertensive heart disease with heart failure (principal); I31.3 Pericardial effusion (noninflammatory); R18.8 Other ascites; E85.9 Amyloidosis, unspecified; I50.33 Acute on chronic diastolic (congestive) heart failure; I27.29 Other secondary pulmonary hypertension; Z20.822 Contact with and (suspected) exposure to COVID-19; I25.10 Atherosclerotic heart disease of native coronary artery without angina pectoris; I08.1 Rheumatic disorders of both mitral and tricuspid valves; J45.20 Mild intermittent asthma, uncomplicated; E78.5 Hyperlipidemia, unspecified; K21.9 Gastro-esophageal reflux disease without esophagitis; F32.9 Major depressive disorder, single episode, unspecified; F41.1 Generalized anxiety disorder; I25.2 Old myocardial infarction; Z95.5 Presence of coronary angioplasty implant and graft; Z90.710 Acquired absence of both cervix and uterus; Z79.899 Other long term (current) drug therapy; Z87.11 Personal history of peptic ulcer disease; Z86.19 Personal history of other infectious and parasitic diseases; Z82.5 Family history of asthma and other chronic lower respiratory diseases; I42.5 Other restrictive cardiomyopathy; D75.1 Secondary polycythemia; I50.82 Biventricular heart failure; R77.8 Other specified abnormalities of plasma proteins
CPT/HCPCS: 36415; 71046; 71275; 80053; 82232; 82668; 83735; 83880; 83883; 84165; 84484; 85025; 85379; 85610; 85730; 86334; 87635; 93005; 93306; 99285

== ENCOUNTER 2020-10-07 16:30 | Inpatient (IN) | payer MEDICARE, OTHER ==
[2020-10-07] MEDS ORDERED: SODIUM CHLORIDE 0.9% 500 ML 500 ML IV STA (17:47)
[2020-10-07 18:10] LABS: Anisocytosis Slight; Basophils # (A) 0.1 k/uL (0-0.2); Basophils % (A) 1 %; Eosinophils % (A) 0 %; HGB 18.8 gm/dL (11.4-16.0); Hypochromasia Slight; Lymphocytes # (A) 1.4 k/uL (1.0-4.8); Lymphocytes % (A) 14 %; MCH 30.4 pg (25.0-35.0); MCHC 31.7 g/dL (31.0-37.0); MCV 96.1 fL (80.0-100.0); Macrocytosis Slight; Mean Platelet Volume 9.1; Monocytes # (A) 0.6 k/uL (0-1.0); Monocytes % (A) 6 %; Neutrophils # (A) 7.9 k/uL (1.3-7.7); Neutrophils % (A) 78 %; Platelet Count 164 k/uL (150-450); RBC 6.17 m/uL (3.80-5.40); RDW 17.2 % (11.5-15.5); WBC 10.1 k/uL (3.8-10.6)
[2020-10-07 18:15] LABS: HCT 59.3 % (34.0-46.0)
[2020-10-07 18:16] LABS: Albumin 3.8 g/dL (3.5-5.0); Calcium 10.5 mg/dL (8.4-10.2); Magnesium 1.9 mg/dL (1.6-2.3); Potassium 4.8 mmol/L (3.5-5.1); Total Bilirubin 4.4 mg/dL (0.2-1.3); Total Protein 6.4 g/dL (6.3-8.2)
[2020-10-07] MEDS ORDERED: SODIUM CHLORIDE 0.9% 500 ML 500 ML IV ONE (18:42)
[2020-10-07] MEDS ORDERED: ASPIRIN 325 MG TAB PO STA (18:42)
[2020-10-07] MEDS ORDERED: SODIUM CHLORIDE 0.9% 1,000 ML IV SCH (18:45)
[2020-10-07] MEDS ORDERED: HEPARIN SODIUM 1,000 UN/ML (10ML VL) IV PRN (18:45)
[2020-10-07] MEDS ORDERED: HEPARIN SODIUM 1,000 UN/ML (10ML VL) IV ONE (18:45)
[2020-10-07] MEDS ORDERED: HEPARIN SOD,PORK IN 0.45% NACL 25,000 UNIT in 0.45% NACL 1 250ML.BAG IV SCH (18:45)
--- NOTE | 2020-10-07 18:47 | XR ---
EXAMINATION TYPE: XR chest 2V DATE OF EXAM: 10/07/2020 COMPARISON: Chest x-ray August 24, 2020. CTA chest August 25, 2020 HISTORY: Fall injury with weakness. TECHNIQUE: Frontal and lateral views of the chest are obtained. FINDINGS: Cardiomegaly redemonstrated. Moderate size right pleural effusion increased from prior tj dies. Left lung remains clear. The osseous structures are intact. IMPRESSION: Cardiomegaly with moderate sized right pleural effusion increased in size from most rece nt study.
[2020-10-07] MEDS ORDERED: FUROSEMIDE 10 MG/ML 4 ML VIAL IV STA (18:51)
--- NOTE | 2020-10-07 18:59 | ED ---
General Adult HPI - General Chief complaint: Weakness Stated complaint: Fall, lethargic, dehydration Time Seen by Provider: 10/07/20 17:25 Source: patient, RN notes reviewed, old records reviewed Mode of arrival: ambulatory Limitations: no limitations - History of Present Illness Initial comments: 70-year-old female with multiple myeloma, hypertension, CAD, amyloidosis. She is presenting with generalized weakness and fatigue. She had this to minor f alls with no injury. She was lowered to the ground. Patient has not had any measured fever. No abdominal pain. No vomiting. She's had a very poor appetite and very poor intake. She states she has not had any chest pain today or at all. She does report some dyspnea which is at baseline. Her daughter 7 monitoring of pulse ox and she's had oxygenation around 90% at home without oxygen. - Related Data Home Medications Medication Instructions Recorded Confirmed ALPRAZolam [Xanax] 0.25 mg PO BID 11/01/18 08/24/20 Multivitamin [Multivitamins Adult 1 tab PO DAILY 11/01/18 08/24/20 Gummies] Atorvastatin [Lipitor] 20 mg PO DAILY 04/14/20 08/24/20 Ferrous Sulfate [Iron (65 MG 325 mg PO DAILY 08/24/20 08/24/20 Elemental)] Fexofenadine/Pseudoephedrine 1 tab PO DAILY 08/24/20 08/24/20 [Annalee-D 24 Hour Tablet] Furosemide [Lasix] 20 mg PO DAILY 08/24/20 08/24/20 Metoprolol Tartrate [Lopressor] 25 mg PO BID 08/24/20 08/24/20 Montelukast [Singulair] 10 mg PO DAILY 08/24/20 08/24/20 Omeprazole 20 mg PO BID 08/24/20 08/24/20 Potassium Chloride ER [K-Dur 10] 10 meq PO DAILY 08/24/20 08/24/20 Allergies Allergy/AdvReac Type Severity Reaction Status Date / Time No Known Allergies Allergy Verified 10/07/20 16:38 Review of Systems ROS Statement: Those systems with pertinent positive or pertinent negative responses have been documented in the HPI. ROS Other: All systems not noted in ROS Statement are negative. Past Medical History Past Medical History: Asthma, Chest Pain / Angina, GERD/Reflux, Hyperlipidemia, Hypertension, Myocardial Infarction (SC) Additional Past Medical History / Comment(s): Hiatal Hernia, hx 2 ulcers in stomach; Bursitis both knees. Hx pancreatitis, SOB w/exertion due to hernia Last Myocardial Infarction Date:: 07/2020 History of Any Multi-Drug Resistant Organisms: None Reported Past Surgical History: Back Surgery, Heart Catheterization, Heart Catheteri zation With Stent, Hysterectomy, Orthopedic Surgery, Tonsillectomy Additional Past Surgical History / Comment(s): Back surgery with hardware, L carpal tunnel, L foot surgery, Past Anesthesia/Blood Transfusion Reactions: Previous Problems w/ Anesthesia, Motion Sickness, Postoperative Nausea & Vomiting (PONV) Additional Past Anesthesia/Blood Transfusion Reaction / Comment(s): was told stopped breathing during EGD Past Psychological History: Depression Smoking Status: Never smoker Past Alcohol Use History: Occasional Past Drug Use History: None Reported - Past Family History Mother Family Medical History: No Reported History Father Family Medical History: No Reported History Additional Family Medical History / Comment(s): Father lived to be 90yrs. General Exam Limitations: no limitations General appearance: alert, in no apparent distress Head exam: Present: atraumatic, normocephalic Eye exam: Present: normal appearance, PERRL ENT exam: Present: mucous membranes dry Neck exam: Present: normal inspection. Absent: tenderness Respiratory exam: Present: respiratory distress (Mild tachypnea), rales, decreased breath sounds Cardiovascular Exam: Present: regular rate, normal rhythm GI/Abdominal exam: Present: soft. Absent: distended, tenderness Extremities exam: Present: normal capillary refill, pedal edema. Absent: calf tenderness Neurological exam: Present: alert, oriented X3, motor sensory deficit (Patient is weak throughout). Absent: CN II-XII intact Psychiatric exam: Present: depressed, flat affect Skin exam: Present: warm, dry, intact Course Vital Signs 10/07/20 10/07/20 16:38 19:00 Temperature 98 F Pulse Rate 58 L 61 Respiratory 16 16 Rate Blood Pressure 110/79 101/70 O2 Sat by Pulse 99 99 Oximetry EKG Findings - EKG Comments: EKG Findings:: Initial EKG obtained at 1809, sinus rhythm with first-degree AV b lock, low voltage, question elevation in V2 and V3 with no reciprocal change. Rate of 64, AL interval 236, QRS duration 98, QTC 429. Repeat EKG obtained at 1851, sinus rhythm low voltage no ST segment elevation, rate of 60, AL interval 204, QRS duration 94, QTC 428 Medical Decision Making - Medical Decision Making 70 no old female with generalized weakness poor appetite, poor intake, baseline dyspnea. Patient does appear somewhat lethargic she has easy fatigue. Chest x- ray showing a large right-sided pleural effusion. She did previously have a pericardial effusion as well as she has a restrictive cardiomyopathy. According to family she has a recent diagnosis of multiple myeloma. Workup reveals normal white blood cell count, elevated hemoglobin and hematocrit. She has elevated troponin which does appear stable compared to prior. Her EKG did show some changes however there is no active chest pain and patient had heart cathete rization approximately one year ago. I did discuss case with Dr. bae and Dr. Rodriguez. Patient will be admitted, echo has been ordered, repeat cardiac enzymes will be trended. Additionally oncology will be placed on consult. - Lab Data Result diagrams: 10/07/20 17:50 10/07/20 17:50 Lab Results 10/07/20 10/07/20 10/07/20 Range/Units 17:50 17:50 17:50 WBC 10.1 (3.8-10.6) k/uL RBC 6.17 H (3.80-5.40) m/uL Hgb 18.8 H (11.4-16.0) gm/dL Hct 59.3 H* (34.0-46.0) % MCV 96.1 (80.0-100.0) fL MCH 30.4 (25.0-35.0) pg MCHC 31.7 (31.0-37.0) g/dL RDW 17.2 H (11.5-15.5) % Plt Count 164 (150-450) k/uL MPV 9.1 Neutrophils % 78 % Lymphocytes % 14 % Monocytes % 6 % Eosinophils % 0 % Basophils % 1 % Neutrophils # 7.9 H (1.3-7.7) k/uL Lymphocytes # 1.4 (1.0-4.8) k/uL Monocytes # 0.6 (0-1.0) k/uL Eosinophils # 0.0 (0-0.7) k/uL Basophils # 0.1 (0-0.2) k/uL Hypochromasia Slight Anisocytosis Slight Macrocytosis Slight PT (9.0-12.0) sec INR (<1.2) APTT (22.0-30.0) sec Sodium 136 L (137-145) mmol/L Potassium 4.8 (3.5-5.1) mmol/L Chloride 102 (98-107) mmol/L Carbon Dioxide 22 (22-30) mmol/L Anion Gap 12 mmol/L BUN 36 H (7-17) mg/dL Creatinine 0.99 (0.52-1.04) mg/dL Est GFR (CKD-EPI)AfAm 66 (>60 ml/min/1.73 sqM) Est GFR (CKD-EPI)NonAf 57 (>60 ml/min/1.73 sqM) Glucose 96 (74-99) mg/dL Plasma Lactic Acid Gonzalo 1.8 (0.7-2.0) mmol/L Calcium 10.5 H (8.4-10.2) mg/dL Magnesium 1.9 (1.6-2.3) mg/dL Total Bilirubin 4.4 H (0.2-1.3) mg/dL AST 90 H (14-36) U/L ALT 57 H (4-34) U/L Alkaline Phosphatase 219 H (38-126) U/L Troponin I (0.000-0.034) ng/mL Total Protein 6.4 (6.3-8.2) g/dL Albumin 3.8 (3.5-5.0) g/dL 10/07/20 10/07/20 Range/Units 17:50 18:39 WBC (3.8-10.6) k/uL RBC (3.80-5.40) m/uL Hgb (11.4-16.0) gm/dL Hct (34.0-46.0) % MCV (80.0-100.0) fL MCH (25.0-35.0) pg MCHC (31.0-37.0) g/dL RDW (11.5-15.5) % Plt Count (150-450) k/uL MPV Neutrophils % % Lymphocytes % % Monocytes % % Eosinophils % % Basophils % % Neutrophils # (1.3-7.7) k/uL Lymphocytes # (1.0-4.8) k/uL Monocytes # (0-1.0) k/uL Eosinophils # (0-0.7) k/uL Basophils # (0-0.2) k/uL Hypochromasia Anisocytosis Macrocytosis PT 13.4 H (9.0-12.0) sec INR 1.3 H (<1.2) APTT 22.6 (22.0-30.0) sec Sodium (137-145) mmol/L Potassium (3.5-5.1) mmol/L Chloride (98-107) mmol/L Carbon Dioxide (22-30) mmol/L Anion Gap mmol/L BUN (7-17) mg/dL Creatinine (0.52-1.04) mg/dL Est GFR (CKD-EPI)AfAm (>60 ml/min/1.73 sqM) Est GFR (CKD-EPI)NonAf (>60 ml/min/1.73 sqM) Glucose (74-99) mg/dL Plasma Lactic Acid Gonzalo (0.7-2.0) mmol/L Calcium (8.4-10.2) mg/dL Magnesium (1.6-2.3) mg/dL Total Bilirubin (0.2-1.3) mg/dL AST (14-36) U/L ALT (4-34) U/L Alkaline Phosphatase (38-126) U/L Troponin I 0.263 H* (0.000-0.034) ng/mL Total Protein (6.3-8.2) g/dL Albumin (3.5-5.0) g/dL Disposition Clinical Impression: Elevated troponin, Cardiomyopathy Disposition: ADMITTED IP TO THIS [facility] Condition: Stable Is patient prescribed a controlled substance at d/c from ED?: No Referrals: Evan Liu MD [Primary Care Provider] - 1-2 days Decision to Admit Reason: Admit from EC Decision Date: 10/07/20 Decision Time: 19:43
[2020-10-07 19:15] LABS: INR 1.3 (<1.2); Partial Thromboplastin Time 22.6 sec (22.0-30.0); Prothrombin Time 13.4 sec (9.0-12.0)
[2020-10-07] MEDS ORDERED: NALOXONE 0.4 MG/ML 1 ML VIAL IV PRN (19:24)
[2020-10-07] MEDS ORDERED: ACETAMINOPHEN TAB 325 MG TAB PO PRN (19:24)
[2020-10-07] MEDS ORDERED: ALPRAZolam 0.25 MG TAB PO STA (23:27)
[2020-10-08 08:46] LABS: Anisocytosis Slight; Basophils # (A) 0.1 k/uL (0-0.2); Basophils % (A) 1 %; Eosinophils % (A) 0 %; HGB 17.3 gm/dL (11.4-16.0); Hypochromasia Slight; Lymphocytes # (A) 1.1 k/uL (1.0-4.8); Lymphocytes % (A) 14 %; MCH 30.2 pg (25.0-35.0); MCHC 31.3 g/dL (31.0-37.0); MCV 96.3 fL (80.0-100.0); Macrocytosis Slight; Mean Platelet Volume 9.3; Monocytes # (A) 0.6 k/uL (0-1.0); Monocytes % (A) 7 %; Neutrophils # (A) 6.4 k/uL (1.3-7.7); Neutrophils % (A) 76 %; Platelet Count 143 k/uL (150-450); RBC 5.74 m/uL (3.80-5.40); RDW 17.2 % (11.5-15.5); WBC 8.4 k/uL (3.8-10.6)
[2020-10-08 09:00] LABS: HCT 55.3 % (34.0-46.0)
[2020-10-08 09:16] LABS: Albumin 3.3 g/dL (3.5-5.0); Calcium 10.1 mg/dL (8.4-10.2); Potassium 4.7 mmol/L (3.5-5.1); Total Bilirubin 3.5 mg/dL (0.2-1.3); Total Protein 5.6 g/dL (6.3-8.2)
--- NOTE | 2020-10-08 12:12 | CONS ---
CONSULTATION CHIEF COMPLAINT: Generalized weakness and fatigue and a fall at home. HISTORY OF PRESENT ILLNESS: This is a 70-year-old lady with history of multiple myeloma, amyloidosis, hypertension, mild coronary artery disease who comes to the hospital having slipped on a wooden floor and falling and was told by her daughter to go to the hospital, that is how she came in. She does not have any chest pain. Does not have difficulty in breathing with leg edema. At the time of my evaluation, she appears comfortable at rest. She has had troponins done here. They came back elevated at 0.2, 0.2 and 0.2 but have remained flat across the board. EKG showed sinus rhythm with poor R-wave progression and PACs. The patient had a cardiac catheterization last year following an abnormal stress test which was done as part of preop cardiac evaluation and did not have obstructive CAD. She subsequently went to hospital in [place] with chest pain and had another heart catheterization. She has a history of pericardial effusion and history of a pericardial effusion and heart failure. At the time of my evaluation, she appears comfortable at rest and is free of symptoms. Troponins are mildly elevated. PAST MEDICAL HISTORY: Significant for pericardial effusion, amyloidosis, multiple myeloma. MEDICATIONS: At home include Xanax, Aldactone, Zoloft, omeprazole, Lopressor 25 b.i.d. and Lipitor. ALLERGIES: There are no known drug allergies. FAMILY HISTORY: Negative for premature coronary artery disease. SOCIAL HISTORY: Is negative for smoking, EtOH abuse, or drug abuse. PHYSICAL EXAMINATION: HEENT is unremarkable. CARDIAC as described above. RESPIRATORY as described above. GI negative. GENITOURINARY negative. ALLERGY/IMMUNOLOGY: Negative. SKIN: Negative. MUSCULOSKELETAL significant for arthritis. PSYCHOSOCIAL: Negative. ENDOCRINE negative. DERM: Negative. CONSTITUTIONAL significant for fatigue, tiredness, not feeling well. Rest of the system review is not relevant. EXAM: Heart rate is 67 beats per minute. Blood pressure is 120/62, respiratory rate is 16, O2 saturation is 98% on 2 L. NECK: There is no jugular venous distention. Carotid upstroke is normal. There is no bruit CHEST exam reveals diminished air entry at the bases. HEART exam reveals first and second heart sounds. No gallop. No murmur. No rub. ABDOMEN: Soft. Exam of EXTREMITIES did not reveal any edema. Peripheral pulses are felt. LABORATORY DATA: Labs show a hemoglobin of 18.8, platelet count is 160. Potassium is 4.8, creatinine is 0.9. Troponins are elevated but flat across at 0.2, 0.2 and 0.2. EKG did not reveal acute ischemic changes and remains unchanged from a month ago. ASSESSMENT: 1. Troponin elevation not consistent with a diagnosis of myocardial infarction. The exact etiology for the troponin elevation is unclear. 2. History of amyloidosis. 3. History of multiple myeloma. 4. Pericardial effusion. PLAN: Patient will have an echo done to reassess her LV function and wall motion. No other cardiac workup at this time. Thank you for allowing us to participate in the care of this pleasant lady. MMODL / IJN: [id number] /
[2020-10-08] MEDS ORDERED: IOPAMIDOL CONTRAST (ORAL USE) VIAL PO PRN (12:21)
--- NOTE | 2020-10-08 12:21 | ECHOF ---
Referral Reason:Dyspnea MEASUREMENTS -------- HEIGHT: 149.9 cm WEIGHT: 62.6 kg BP: 120/62 RVIDd: 3.5 cm (< 3.3) IVSd: 1.4 cm (0.6 - 1.1) LVIDd: 3.1 cm (3.9 - 5.3) LVPWd: 1.6 cm (0.6 - 1.1) IVSs: 1.8 cm LVIDs: 2.7 cm LVPWs: 1.8 cm LA Diam: 4.1 cm (2.7 - 3.8) LAESV Index (A-L): 29.30 ml/m Ao Diam: 3.4 cm (2.0 - 3.7) AV Cusp: 2.1 cm (1.5 - 2.6) MV EXCURSION: 16.594 mm (> 18.000) MV EF SLOPE: 60 mm/s (70 - 150) EPSS: 0.6 cm MV E Rajinder: 0.63 m/s MV DecT: 341 ms MV A Rajinder: 0.43 m/s MV E/A Ratio: 1.46 RAP: 15.00 mmHg RVSP: 39.15 mmHg TAPSE: 8.11 mm FINDINGS -------- Sinus rhythm. This was a technically good study. The left ventricular size is normal. There is moderate concentric left ventricular hypertrophy. O verall left ventricular systolic function is mildly impaired with, an EF between 45 - 50 %. Basal i nferior LV wall motion is hypokinetic. Basal inferoseptal LV wall motion is hypokinetic. The right ventricle is mildly enlarged. LA is midly dilated 29-33ml/m2. The right atrium is normal in size. Interatrial and interventricular septum intact. Trace to mild aortic regurgitation. Mild mitral annular calcification present. Mild mitral regurgitation is present. Mild tricuspid regurgitation present. There is mild pulmonary hypertension. The right ventricular systolic pressure, as measured by Doppler, is 39.15mmHg. Trace/mild (physiologic) pulmonic regurgitation. The aortic root size is normal. The inferior vena cava is dilated with poor inspiratory collapse which is consistent with estimated r ight atrial pressure of 15 mmHg. There is a small to moderate, generalized pericardial effusion present. CONCLUSIONS -------- 1. The left ventricular size is normal. 2. There is moderate concentric left ventricular hypertrophy. 3. Overall left ventricular systolic function is mildly impaired with, an EF between 45 - 50 %. 4. Basal inferior LV wall motion is hypokinetic. 5. Basal inferoseptal LV wall motion is hypokinetic. 6. The right ventricle is mildly enlarged. 7. LA is midly dilated 29-33ml/m2. 8. Trace to mild aortic regurgitation. 9. Mild mitral annular calcification present. 10. Mild mitral regurgitation is present. 11. Mild tricuspid regurgitation present. 12. There is mild pulmonary hypertension. 13. The right ventricular systolic pressure, as measured by Doppler, is 39.15mmHg. 14. Trace/mild (physiologic) pulmonic regurgitation. 15. The inferior vena cava is dilated with poor inspiratory collapse which is consistent with estimat ed right atrial pressure of 15 mmHg. 16. There is a moderate, generalized pericardial effusion present. BACK UP WORKER: Leah Estrada RDCS
--- NOTE | 2020-10-08 12:29 | P.HPIM ---
History of Present Illness H&P Date: 10/08/20 Chief Complaint: Weakness, shortness of breath This 70-year-old pleasant female patient of Dr. Hand, with underlying history of paraesophageal hiatal hernia and GERD, chronic bronchial asthma, mild intermittent hypertension, hyperlipidemia, and recently diagnosed to have a myloidosis and multiple diet myeloma, through confirmedbone marrow biopsy, 2 weeks ago. He she is supposed to start treatment with Dr. Madrid this 10/11/2020. She also sees Dr. mercer, for what was suspected to be pericardial effusion. She was recently hospitalized, 08/25/2020, for shortness of breath, sees Dr. Soria cardiology and was diagnosed to have an STEMI, in, 07/17/2020, in the clinic in [facility]. She underwent a heart cath, the second time and was found to have nonobstructive CAD, diastolic CHF, EF was documented to be normal that time, and was discharged with Cozaar and Lopressor Lasix and potassium. She was admitted from our facility Jul, 2020, with chronic dyspnea secondary to restrictive cardiomyopathy, pericardial effusion, and pleural effusion, possible to get amyloidosis at that time. She now comes in to the emergency room, which shortness of breath, edema, difficulty of breathing, patient also has anasarca, generalized weakness, and f atigue, patient felt lightheaded and dizzy, patient did not pass out, has difficulty in ambulating and has difficulty in getting up when she was lowered down to the floor upon her fall, she has no appetite, denies any new weight loss, however she is gaining more weight with edema, her pulse ox at home was around 90% on room air, in the emergency room, she has no leukocytosis, with WBCs 10, hemoglobin is 18.8, creatinine of 0.9, BUN of 36, sodium 136, platelet count is 164 troponin of 0.263, alkaline phosphatase elevated to 19, AST ALT, elevated, total bili elevated 4.4. Consults were made with cardiology, and oncology for the elevated troponin, and amyloidosis, multiple myeloma echocardiogram is requested for pleural effusion,, patient has seen Dr. hills in the past, we will obtain his service, and a thoracic ultrasound Review of Systems Constitutional: Reports as per HPI, Reports anorexia, Reports chronic pain, Reports fatigue, Reports lethargy, Reports malaise, Reports poor appetite, Reports weakness, Denies weight loss Ears, nose, mouth and throat: Reports as per HPI, Denies ant. neck pain, Denies bleeding gums, Denies dental pain, Denies dysphagia, Denies epistaxis, Denies headache, Denies hoarseness, Denies mouth pain, Denies nasal congestion, Denies nasal discharge, Denies neck fullness/pressure, Denies neck lump, Denies nose pain, Denies odynophagia, Denies post-nasal drip, Denies sinus pain, Denies sinus pressure, Denies swelling in mouth, Denies swelling in throat, Denies sore throat, Denies vertigo, Denies voice changes Cardiovascular: Denies as per HPI, Denies chest pain, Denies claudication, Denies decreased exercise tolerance, Denies dyspnea on exertion, Denies edema, Denies high blood pressure, Denies irregular heart beat, Denies leg edema, Denies lightheadedness, Denies orthopnea, Denies palpitations, Denies paroxysmal nocturnal dyspnea, Denies phlebitis, Denies rapid heart beat, Denies shortness of breath, Denies syncope Respiratory: Reports as per HPI, Reports dyspnea, Denies hemoptysis, Denies pain on inspiration, Denies respiratory infections, Denies snoring Gastrointestinal: Reports as per HPI, Reports loss of appetite, Denies change in bowel habits, Denies coffee ground emesis, Denies diarrhea, Denies heartburn, Denies melena Genitourinary: Reports as per HPI, Reports flank pain Menstruation: Reports as per HPI, Denies amenorrhea, Denies amenorrhea on BC, Denies currently menstrual, Denies cycle < 21 days, Denies cycle > 35 days, Denies cycle variable, Denies menses 1-7 days, Denies menses 8 or > days, Denies menses variable, Denies period heavy, Denies period light, Denies period normal, Denies period spotting, Denies post hysterectomy, Denies postmenopausal, Denies premenarcheal Musculoskeletal: Reports as per HPI Past Medical History Past Medical History: Asthma, Chest Pain / Angina, GERD/Reflux, Hyperlipidemia, Hypertension, Myocardial Infarction (SD) Additional Past Medical History / Comment(s): Hiatal Hernia, hx 2 ulcers in stomach; Bursitis both knees. Hx pancreatitis, SOB w/exertion due to hernia Last Myocardial Infarction Date:: 07/2020 History of Any Multi-Drug Resistant Organisms: None Reported Past Surgical History: Back Surgery, Heart Catheterization, Heart Catheterization With Stent, Hysterectomy, Orthopedic Surgery, Tonsillectomy Additional Past Surgical History / Comment(s): Back surgery with hardware, L carpal tunnel, L foot surgery, Past Anesthesia/Blood Transfusion Reactions: Previous Problems w/ Anesthesia, Motion Sickness, Postoperative Nausea & Vomiting (PONV) Additional Past Anesthesia/Blood Transfusion Reaction / Comment(s): was told stopped breathing during EGD Past Psychological History: Depression Smoking Status: Never smoker Past Alcohol Use History: Occasional Past Drug Use History: None Reported - Past Family History Mother Family Medical History: No Reported History, Asthma, Diabetes Mellitus Father Family Medical History: No Reported History Additional Family Medical History / Comment(s): Father lived to be 90yrs. Sister(s) Family Medical History: No Reported History Daughter(s) Family Medical History: No Reported History Medications and Allergies Home Medications Medication Instructions Recorded Confirmed Type ALPRAZolam [Xanax] 0.25 mg PO HS 11/01/18 10/07/20 History Atorvastatin [Lipitor] 20 mg PO DAILY 04/14/20 10/07/20 History Ferrous Sulfate [Iron (65 MG 325 mg PO DAILY 08/24/20 10/07/20 History Elemental)] Metoprolol Tartrate [Lopressor] 25 mg PO BID 08/24/20 10/07/20 History Omeprazole 20 mg PO BID 08/24/20 10/07/20 History Lenalidomide [Revlimid] 25 mg PO DIRECTED 10/07/20 10/07/20 History Multivitamins, Thera [Multivitamin 1 tab PO DAILY 10/07/20 10/07/20 History (formulary)] Sertraline [Zoloft] 50 mg PO DAILY 10/07/20 10/07/20 History Spironolactone [Aldactone] 25 mg PO BID 10/07/20 10/07/20 History dexAMETHasone [Dexamethasone] 20 mg PO DIRECTED 10/07/20 10/07/20 History Allergies Allergy/AdvReac Type Severity Reaction Status Date / Time No Known Allergies Allergy Verified 10/07/20 19:46 Physical Exam Vitals: Vital Signs Temp Pulse Resp BP Pulse Ox 10/07/20 23:44 67 16 120/62 93 L 10/07/20 20:00 67 16 116/76 98 10/07/20 19:00 61 16 101/70 99 10/07/20 16:38 98 F 58 L 16 110/79 99 Intake and Output 10/07/20 10/08/20 10/08/20 22:59 06:59 14:59 Other: Weight 62.596 kg - Constitutional General appearance: cooperative, mild distress - EENT Eyes: EOMI, PERRLA, dentition normal ENT: NA/AT, normal oropharynx - Respiratory Respiratory: bilateral: CTA, diminished, negative: rales, rhonchi, wheezing, prolonged expiration, prolonged inspiration - Cardiovascular Rhythm: regular Abnormal Heart Sounds: no rub - Gastrointestinal General gastrointestinal: normal bowel sounds, soft - Integumentary Integumentary: normal - Neurologic Neurologic: CNII-XII intact - Musculoskeletal Musculoskeletal: generalized weakness, strength equal bilaterally - Psychiatric Psychiatric: A&O x's 3, appropriate affect, intact judgment & insight Results CBC & Chem 7: 10/08/20 08:06 10/08/20 08:06 Labs: Abnormal Lab Results - Last 24 Hours (Table) 10/07/20 10/07/20 10/07/20 Range/Units 17:50 17:50 17:50 RBC 6.17 H (3.80-5.40) m/uL Hgb 18.8 H (11.4-16.0) gm/dL Hct 59.3 H* (34.0-46.0) % RDW 17.2 H (11.5-15.5) % Plt Count (150-450) k/uL Neutrophils # 7.9 H (1.3-7.7) k/uL PT (9.0-12.0) sec INR (<1.2) Sodium 136 L (137-145) mmol/L Carbon Dioxide (22-30) mmol/L BUN 36 H (7-17) mg/dL Glucose (74-99) mg/dL Calcium 10.5 H (8.4-10.2) mg/dL Total Bilirubin 4.4 H (0.2-1.3) mg/dL AST 90 H (14-36) U/L ALT 57 H (4-34) U/L Alkaline Phosphatase 219 H (38-126) U/L Troponin I 0.263 H* (0.000-0.034) ng/mL Total Protein (6.3-8.2) g/dL Albumin (3.5-5.0) g/dL 10/07/20 10/07/20 10/07/20 Range/Units 18:39 20:53 23:55 RBC (3.80-5.40) m/uL Hgb (11.4-16.0) gm/dL Hct (34.0-46.0) % RDW (11.5-15.5) % Plt Count (150-450) k/uL Neutrophils # (1.3-7.7) k/uL PT 13.4 H (9.0-12.0) sec INR 1.3 H (<1.2) Sodium (137-145) mmol/L Carbon Dioxide (22-30) mmol/L BUN (7-17) mg/dL Glucose (74-99) mg/dL Calcium (8.4-10.2) mg/dL Total Bilirubin (0.2-1.3) mg/dL AST (14-36) U/L ALT (4-34) U/L Alkaline Phosphatase (38-126) U/L Troponin I 0.260 H* 0.268 H* (0.000-0.034) ng/mL Total Protein (6.3-8.2) g/dL Albumin (3.5-5.0) g/dL 10/08/20 10/08/20 Range/Units 08:06 08:06 RBC 5.74 H (3.80-5.40) m/uL Hgb 17.3 H (11.4-16.0) gm/dL Hct 55.3 H (34.0-46.0) % RDW 17.2 H (11.5-15.5) % Plt Count 143 L (150-450) k/uL Neutrophils # (1.3-7.7) k/uL PT (9.0-12.0) sec INR (<1.2) Sodium 135 L (137-145) mmol/L Carbon Dioxide 21 L (22-30) mmol/L BUN 36 H (7-17) mg/dL Glucose 107 H (74-99) mg/dL Calcium (8.4-10.2) mg/dL Total Bilirubin 3.5 H (0.2-1.3) mg/dL AST 80 H (14-36) U/L ALT 52 H (4-34) U/L Alkaline Phosphatase 194 H (38-126) U/L Troponin I (0.000-0.034) ng/mL Total Protein 5.6 L (6.3-8.2) g/dL Albumin 3.3 L (3.5-5.0) g/dL Laboratory Results WBC 8.4 k/uL (3.8-10.6) 10/08/20 08:06 RBC 5.74 m/uL (3.80-5.40) H 10/08/20 08:06 Hgb 17.3 gm/dL (11.4-16.0) H 10/08/20 08:06 Hct 55.3 % (34.0-46.0) H 10/08/20 08:06 MCV 96.3 fL (80.0-100.0) 10/08/20 08:06 MCH 30.2 pg (25.0-35.0) 10/08/20 08:06 MCHC 31.3 g/dL (31.0-37.0) 10/08/20 08:06 RDW 17.2 % (11.5-15.5) H 10/08/20 08:06 Plt Count 143 k/uL (150-450) L 10/08/20 08:06 MPV 9.3 10/08/20 08:06 Neutrophils % 76 % 10/08/20 08:06 Lymphocytes % 14 % 10/08/20 08:06 Monocytes % 7 % 10/08/20 08:06 Eosinophils % 0 % 10/08/20 08:06 Basophils % 1 % 10/08/20 08:06 Neutrophils # 6.4 k/uL (1.3-7.7) 10/08/20 08:06 Lymphocytes # 1.1 k/uL (1.0-4.8) 10/08/20 08:06 Monocytes # 0.6 k/uL (0-1.0) 10/08/20 08:06 Eosinophils # 0.0 k/uL (0-0.7) 10/08/20 08:06 Basophils # 0.1 k/uL (0-0.2) 10/08/20 08:06 Hypochromasia Slight 10/08/20 08:06 Anisocytosis Slight 10/08/20 08:06 Macrocytosis Slight 10/08/20 08:06 PT 13.4 sec (9.0-12.0) H 10/07/20 18:39 INR 1.3 (<1.2) H 10/07/20 18:39 APTT 22.6 sec (22.0-30.0) 10/07/20 18:39 Sodium 135 mmol/L (137-145) L 10/08/20 08:06 Potassium 4.7 mmol/L (3.5-5.1) 10/08/20 08:06 Chloride 106 mmol/L (98-107) 10/08/20 08:06 Carbon Dioxide 21 mmol/L (22-30) L 10/08/20 08:06 Anion Gap 8 mmol/L 10/08/20 08:06 BUN 36 mg/dL (7-17) H 10/08/20 08:06 Creatinine 0.96 mg/dL (0.52-1.04) 10/08/20 08:06 Est GFR (CKD-EPI)AfAm 68 (>60 ml/min/1.73 sqM) 10/08/20 08:06 Est GFR (CKD-EPI)NonAf 59 (>60 ml/min/1.73 sqM) 10/08/20 08:06 Glucose 107 mg/dL (74-99) H 10/08/20 08:06 Plasma Lactic Acid Gonzalo 1.8 mmol/L (0.7-2.0) 10/07/20 17:50 Calcium 10.1 mg/dL (8.4-10.2) 10/08/20 08:06 Magnesium 1.9 mg/dL (1.6-2.3) 10/07/20 17:50 Total Bilirubin 3.5 mg/dL (0.2-1.3) H 10/08/20 08:06 AST 80 U/L (14-36) H 10/08/20 08:06 ALT 52 U/L (4-34) H 10/08/20 08:06 Alkaline Phosphatase 194 U/L (38-126) H 10/08/20 08:06 Troponin I 0.268 ng/mL (0.000-0.034) H* 10/07/20 23:55 Total Protein 5.6 g/dL (6.3-8.2) L 10/08/20 08:06 Albumin 3.3 g/dL (3.5-5.0) L 10/08/20 08:06 Assessment and Plan Plan: 1. Acute on chronic dyspnea secondary with acute hypoxemic respiratory failure, currently multifactorial to include amyloidosis, with cardiomyopathy, moderate right pleural effusion, and recent diagnosis of pericardial effusion,, echocardiogram to be done, we'll going to obtain a thoracic ultrasound, consult with Dr. Hills and, pulmonary, cardiology consult with Dr. Soria, cardiology. Dr. Madrid from oncology , IV Lasix, check for prealbumin, 2. Elevated troponins which is chronic,. Patient had recent heart catheterization in [place] was reported as negative for obstructive disease 07/02 021. Cardiology consult and repeat troponins. Obtain echocardiogram 3. Amyloidosis, suspect cardiac cardiac cardiomyopathy, no treatment initiated yet, await consultation from Dr. Madrid, 4. Multiple myeloma, to start treatment this October 11, with Dr. Madrid, unknown protocol most likely would include dexamethasone and Velcade, Revlimid 5. transaminitis with elevated total bili / jaundice, no signs of hemolysis at this time, suspect obstructive in nature, check for total bili fractionation, and CAT scan of the liver gallbladder, , most likely secondary to amyloid as well, 3. Hyperlipidemia. Continue Lipitor 20 mg daily. 4. Hypertension. Continu Lopressor 25 mg twice daily. 5. Hiatal hernia status post robotic-assisted laparoscopic repair of incarcerated paraesophageal hernia in April 2020, stable. 6. Mild intermittent asthma, stable. 7. Gastroesophageal reflux disease and GI prophylaxis. Continue omeprazole 20 g twice daily. 8. Generalized anxiety disorder. Continue Xanax 0.25 mg twice daily. 9. DVT prophylaxis. Heparin subcu.
--- NOTE | 2020-10-08 13:50 | US ---
EXAMINATION TYPE: US chest DATE OF EXAM: 10/08/2020 COMPARISON: NONE CLINICAL HISTORY: mod right pleural effusion. TECHNIQUE: Targeted ultrasound of the posterior lower right hemithorax EXAM MEASUREMENTS: Right Pleural Effusion pocket size: 8.2 cm Right skin surface to fluid distance: 2.5 cm Right side marked for possible thoracentesis outside the dept. Pulmonologists are able to review the images in the patient?s EMR. IMPRESSIONS: Right pleural effusion is marked as described above.
--- NOTE | 2020-10-08 14:49 | CT ---
EXAMINATION TYPE: CT abdomen pelvis w con DATE OF EXAM: 10/08/2020 COMPARISON: 09/16/2018 HISTORY: No abdominal complaints at time of scan. CT DLP: 993.6 mGycm CONTRAST: CT scan of the abdomen and pelvis is performed without Oral Contrast and with IV Contrast, patient in jected with 100 mL of Isovue 300. FINDINGS: LUNG BASES-: Moderate right basilar pleural effusion and compressive atelectasis. Pericardial effusio n measuring 1.9 cm in maximal thickness. LIVER/GB: No calcified gallstones. No space occupying hepatic lesion. Biliary tree is of normal ca liber. PANCREAS: No inflammation. No distinct mass. SPLEEN: No splenic enlargement. No lesion seen. ADRENALS: No nodule. No thickening. KIDNEYS/BLADDER: No hydronephrosis. No nephrolithiasis. No distinct renal mass. Urinary bladder g rossly unremarkable. BOWEL: Wall thickening right hemicolon/cecal region may reflect underlying colitis nonspecific type. Visualization of the appendix. Normal bowel caliber. No inflammation. GENITAL ORGANS: No gross abnormality. LYMPH NODES: No greater than 1cm abdominal or pelvic lymph nodes are appreciated. AORTA: No significant abnormality. OSSEOUS STRUCTURES: Severe degenerative change lumbar spine. OTHER: Subcutaneous edema as well as ascites and mesenteric stranding may reflect changes of anasarca . IMPRESSION: 1. Wall thickening cecum and right hemicolon may reflect nonspecific colitis. Underlying mass is not excluded. 2. Features of anasarca. 3. Right pleural effusion with atelectasis and pericardial effusion is noted.
--- NOTE | 2020-10-08 16:23 | P.CONS ---
History of Present Illness - Reason for Consult Consult date: 10/08/20 Multiple myeloma. Weakness and shortness of breath - History of Present Illness Ms Stevens is a 70 yr old white female initially seen in consult at [facility]. She has multiple medical problems. The patient lost about 20 pounds after hernia surgery in 04/22 unit in 07/21 she developed chest discomfort and shortness of breath while in [place] and was admitted to the hospital. She was diagnosed with a and STEMI and congestive heart failure. She had cardiac catheterization but apparently no specific intervention was required. The patient remained short of breath despite treatment for congestive heart failure, and also complained of intermittent lower exudate swelling. She was admitted for further management, with chest x-ray and CTA showing possible pericardial effusion. Echocardiogram showed a small pericardial effusion without definite compromise, but appearance of the myocardium was highly suspicious for cardiac amyloidosis. There was a history of amyloidosis in her mother and a paternal aunt. Patient's lambda light chain levels were increased at 73.4 mg/dL. She had additional labs ordered, with prophylactic was showing no monoclonal protein. However kappa light chain was normal at 1.38, indicating significant K/L ratio abnormality, highly suspicious for a monoclonal process. The patient was discharged after symptomatically treatment for her heart failure symptoms. She was seen for her first office visit on 09/06/20. the patient proceeded to bone marrow aspiration biopsy on 09/18/20. This revealed overt multiple myeloma with 20-30% involvement with lambda restricted monoclonal plasma cells. bone marrow was negative for amyloid 24 hr urine showed lambda light chain of 2.02 grams per liter, and M protein of about 350 mg in 24 hours. on survey showed possible lucent areas in the calvarium, and right proximal humerus. Additional labs to check for MPD, given the high normal hemoglobin were negative the patient was recommended to start treatment for myeloma with the RVD regimen, which would also be an effective regimen to treat amyloidosis. She was supposed to start treatment on 10/11/20. The patient came in to the hospital this time as she was feeling quite weak and had a near syncopal episode. She does not actually pass out but had to below to the ground. She is also complaining of increased shortness of breath. Labs on admission showed hemoglobin in the 70-80 range which is chronic for her. Mild liver enzyme elevation again noted. CT of the abdomen and pelvis was performed because of complains of abdominal bloating and tightness which did not reveal any specific symptoms other than possible nonspecific right-sided colitis. There was a small pericardial effusion, with ejection fraction slightly less than her previous level at 40-25%. Right-sided pleural effusion was also seen confirmed on ultrasound. Troponins were mildly elevated in the 0.2-0.3 range. Review of Systems Constitutional: Reports fatigue, Reports weakness, Reports weight loss Eyes: denies blurred vision, denies pain Ears: deny: decreased hearing, ear discharge, earache, tinnitus Ears, nose, mouth and throat: Denies headache, Denies sore throat Cardiovascular: Reports shortness of breath Respiratory: Reports dyspnea Gastrointestinal: Reports bloating Genitourinary: Denies dysuria, Denies hematuria Menstruation: Reports postmenopausal Musculoskeletal: Reports muscle weakness Integumentary: Denies pruritus, Denies rash Neurological: Reports weakness Psychiatric: Reports anxiety Endocrine: Reports fatigue, Reports weight change Hematologic/Lymphatic: Reports as per HPI Past Medical History Past Medical History: Asthma, Chest Pain / Angina, GERD/Reflux, Hyperlipidemia, Hypertension, Myocardial Infarction (NM) Additional Past Medical History / Comment(s): Hiatal Hernia, hx 2 ulcers in stomach; Bursitis both knees. Hx pancreatitis, SOB w/exertion due to hernia Last Myocardial Infarction Date:: 07/2020 History of Any Multi-Drug Resistant Organisms: None Reported Past Surgical History: Back Surgery, Heart Catheterization, Heart Catheterization With Stent, Hysterectomy, Orthopedic Surgery, Tonsillectomy Additional Past Surgical History / Comment(s): Back surgery with hardware, L carpal tunnel, L foot surgery, Past Anesthesia/Blood Transfusion Reactions: Previous Problems w/ Anesthesia, Motion Sickness, Postoperative Nausea & Vomiting (PONV) Additional Past Anesthesia/Blood Transfusion Reaction / Comm: was told stopped breathing during EGD Date of Last Stent Placement:: unknown Past Psychological History: Depression Smoking Status: Never smoker Past Alcohol Use History: Occasional Past Drug Use History: None Reported - Past Family History Mother Family Medical History: No Reported History, Asthma, Diabetes Mellitus Father Family Medical History: No Reported History Additional Family Medical History / Comment(s): Father lived to be 90yrs. Sister(s) Family Medical History: No Reported History Daughter(s) Family Medical History: No Reported History Medications and Allergies Home Medications Medication Instructions Recorded Confirmed Type ALPRAZolam [Xanax] 0.25 mg PO HS 11/01/18 10/07/20 History Atorvastatin [Lipitor] 20 mg PO DAILY 04/14/20 10/07/20 History Ferrous Sulfate [Iron (65 MG 325 mg PO DAILY 08/24/20 10/07/20 History Elemental)] Metoprolol Tartrate [Lopressor] 25 mg PO BID 08/24/20 10/07/20 History Omeprazole 20 mg PO BID 08/24/20 10/07/20 History Lenalidomide [Revlimid] 25 mg PO DIRECTED 10/07/20 10/07/20 History Multivitamins, Thera [Multivitamin 1 tab PO DAILY 10/07/20 10/07/20 History (formulary)] Sertraline [Zoloft] 50 mg PO DAILY 10/07/20 10/07/20 History Spironolactone [Aldactone] 25 mg PO BID 10/07/20 10/07/20 History dexAMETHasone [Dexamethasone] 20 mg PO DIRECTED 10/07/20 10/07/20 History Allergies Allergy/AdvReac Type Severity Reaction Status Date / Time No Known Allergies Allergy Verified 10/07/20 19:46 Physical Exam Vitals: Vital Signs Temp Pulse Pulse Resp BP BP Pulse Ox 10/08/20 12:00 98.0 F 110 H 19 108/74 93 L 10/08/20 08:00 97.6 F 69 19 107/75 92 L 10/07/20 23:44 67 16 120/62 93 L 10/07/20 20:00 67 16 116/76 98 10/07/20 19:00 61 16 101/70 99 10/07/20 16:38 98 F 58 L 16 110/79 99 Intake and Output 10/07/20 10/08/20 10/08/20 22:59 06:59 14:59 Other: Weight 62.596 kg - Constitutional Patient was laying fairly flat comfortably, but did seem to be at least slightly short of breath while conversing General appearance: no acute distress - EENT Eyes: EOMI, PERRLA ENT: hearing grossly normal, normal oropharynx - Neck Neck: no lymphadenopathy Thyroid: bilateral: normal size - Respiratory Respiratory: right: diminished, rales - Cardiovascular Rhythm: regular Heart sounds: normal: S1, S2 - Gastrointestinal General gastrointestinal: normal bowel sounds, soft - Integumentary Integumentary: normal - Neurologic Neurologic: CNII-XII intact - Musculoskeletal Musculoskeletal: generalized weakness, strength equal bilaterally - Psychiatric Psychiatric: A&O x's 3, appropriate affect Results CBC & Chem 7: 10/08/20 08:06 10/08/20 08:06 Labs: Abnormal Lab Results - Last 24 Hours (Table) 10/07/20 10/07/20 10/07/20 Range/Units 17:50 17:50 17:50 RBC 6.17 H (3.80-5.40) m/uL Hgb 18.8 H (11.4-16.0) gm/dL Hct 59.3 H* (34.0-46.0) % RDW 17.2 H (11.5-15.5) % Plt Count (150-450) k/uL Neutrophils # 7.9 H (1.3-7.7) k/uL PT (9.0-12.0) sec INR (<1.2) Sodium 136 L (137-145) mmol/L Carbon Dioxide (22-30) mmol/L BUN 36 H (7-17) mg/dL Glucose (74-99) mg/dL Calcium 10.5 H (8.4-10.2) mg/dL Total Bilirubin 4.4 H (0.2-1.3) mg/dL AST 90 H (14-36) U/L ALT 57 H (4-34) U/L Alkaline Phosphatase 219 H (38-126) U/L Troponin I 0.263 H* (0.000-0.034) ng/mL Total Protein (6.3-8.2) g/dL Albumin (3.5-5.0) g/dL 10/07/20 10/07/20 10/07/20 Range/Units 18:39 20:53 23:55 RBC (3.80-5.40) m/uL Hgb (11.4-16.0) gm/dL Hct (34.0-46.0) % RDW (11.5-15.5) % Plt Count (150-450) k/uL Neutrophils # (1.3-7.7) k/uL PT 13.4 H (9.0-12.0) sec INR 1.3 H (<1.2) Sodium (137-145) mmol/L Carbon Dioxide (22-30) mmol/L BUN (7-17) mg/dL Glucose (74-99) mg/dL Calcium (8.4-10.2) mg/dL Total Bilirubin (0.2-1.3) mg/dL AST (14-36) U/L ALT (4-34) U/L Alkaline Phosphatase (38-126) U/L Troponin I 0.260 H* 0.268 H* (0.000-0.034) ng/mL Total Protein (6.3-8.2) g/dL Albumin (3.5-5.0) g/dL 10/08/20 10/08/20 Range/Units 08:06 08:06 RBC 5.74 H (3.80-5.40) m/uL Hgb 17.3 H (11.4-16.0) gm/dL Hct 55.3 H (34.0-46.0) % RDW 17.2 H (11.5-15.5) % Plt Count 143 L (150-450) k/uL Neutrophils # (1.3-7.7) k/uL PT (9.0-12.0) sec INR (<1.2) Sodium 135 L (137-145) mmol/L Carbon Dioxide 21 L (22-30) mmol/L BUN 36 H (7-17) mg/dL Glucose 107 H (74-99) mg/dL Calcium (8.4-10.2) mg/dL Total Bilirubin 3.5 H (0.2-1.3) mg/dL AST 80 H (14-36) U/L ALT 52 H (4-34) U/L Alkaline Phosphatase 194 H (38-126) U/L Troponin I (0.000-0.034) ng/mL Total Protein 5.6 L (6.3-8.2) g/dL Albumin 3.3 L (3.5-5.0) g/dL Comments: Echocardiogram report reviewed. EKG reviewed Chest x-ray: report reviewed CT scan - abdomen: report reviewed CT scan - pelvis: report reviewed Assessment and Plan (1) Dyspnea Narrative/Plan: And came in with shortness of breath increased compared to baseline. Imaging findings were as described. At this time given the patient's history differential diagnosis is quite wide. It includes possible congestive heart failure exacerbation, as well as pleural effusion due to her underlying hematologic condition. An acute coronary syndrome appears to be less likely. - Patient had a chest ultrasound with the site of the pleural effusion marked. Defer to pulmonary medicine as to need for thoracentesis. If the patient does have thoracentesis, would request flow cytometry for plasma cells as well as staining for amyloid in addition to routine studies such as cytology - Given the patient's underlying diagnosis, I will also check CT angiogram to rule out PE Current Visit: Yes Status: Acute Code(s): R06.00 - DYSPNEA, UNSPECIFIED SNOMED Code(s): 327874875 (2) Multiple myeloma Narrative/Plan: The patient has recent diagnosis of the same. Given the appearance of the myoc ardium on echocardiogram, she is felt to have probable light chain deposition. She is to start on the RVD regimen for myeloma on 10/11/20. This will also treat any light chain deposition disease in a specific organ. If the patient is not found to have any acutely reversible cause, we can try to temporize with high- dose bolus steroids if she remains inpatient. Current Visit: Yes Status: Acute Code(s): C90.00 - MULTIPLE MYELOMA NOT HAVING ACHIEVED REMISSION SNOMED Code(s): 495280885 Plan: I will also check Dopplers of both lower extremities, given her complains of increased cramping in both legs - The patient has polycythemia with hemoglobin in the 17-80 range. 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 No acute intervention required
--- NOTE | 2020-10-08 16:44 | P.CNPUL ---
History of Present Illness Consult date: 10/08/20 Reason for consult: dyspnea, pleural effusion History of present illness: This patient was hospitalized for worsening shortness of breath and generalized weakness. She was found to have a right-sided pleural effusion along with some pericardial effusion. I was consulted regarding the pleural effusion was asked to provide the patient some symptomatic relief via thoracentesis. The patient has a very long and complicated history. I initially saw her back beginning of the year after she underwent an robotic-assisted laparoscopic repair of an incarcerated paraesophageal hernia and this was done on 04/19/2020. Since then, her condition has been gradually deteriorating. The patient lost about 20 pounds after hernia surgery in 04/22 unit in 07/21 she developed chest discomfort and shortness of breath while in [place] and was admitted to the hospital. She was diagnosed with a and STEMI and congestive heart failure. She had cardiac margarita terization but apparently no specific intervention was required. The patient remained short of breath despite treatment for congestive heart failure, and also complained of intermittent lower exudate swelling. She was admitted for further management, with chest x-ray and CTA showing possible pericardial effusion. Echocardiogram showed a small pericardial effusion without definite compromise, but appearance of the myocardium was highly suspicious for cardiac amyloidosis. There was a history of amyloidosis in her mother and a paternal aunt. Patient's lambda light chain levels were increased at 73.4 mg/dL. She had additional labs ordered, with prophylactic was showing no monoclonal protein. However kappa light chain was normal at 1.38, indicating significant K/L ratio abnormality, highly suspicious for a monoclonal process. The patienthad a bone marrow aspiration biopsy on 09/18/20. This revealed overt multiple myeloma with 20-30% involvement with lambda restricted monoclonal plasma cells. bone marrow was negative for amyloid, 24 hr urine showed lambda light chain of 2.02 grams per liter, and M protein of about 350 mg in 24 hours. on survey showed possible lucent areas in the calvarium, and right proximal humerus. Additional labs to check for MPD, given the high normal hemoglobin were negative. T he patient was recommended to start treatment for myeloma with the RVD regimen, which would also be an effective regimen to treat amyloidosis. She was supposed to start treatment on 10/11/20. The patient came in to the hospital this time as she was feeling quite weak and had a near syncopal episode. Having worsening shortness of breath. Ultrasound the chest was done that showed a right-sided pleural effusion. CT of the abdomen and pelvis was performed because of complains of abdominal bloating and tightness which did not reveal any specific symptoms other than possible nonspecific right-sided colitis. There was a small pericardial effusion, with ejection fraction slightly less than her previous level at 40-25%. Right-sided pleural effusion was also seen confirmed on ultrasound. Troponins were mildly elevated in the 0.2-0.3 range. There was also evidence of some right-sided pleural effusion. A thoracentesis was done and a total of 7 50 mL of pleural fluid was aspirated from the right lung. Review of Systems Constitutional: Reports as per HPI, Reports anorexia, Reports chronic pain, Repo rts fatigue, Reports lethargy, Reports malaise, Reports poor appetite, Reports weakness, Denies weight loss Ears, nose, mouth and throat: Reports as per HPI, Denies ant. neck pain, Denies bleeding gums, Denies dental pain, Denies dysphagia, Denies epistaxis, Denies headache, Denies hoarseness, Denies mouth pain, Denies nasal congestion, Denies nasal discharge, Denies neck fullness/pressure, Denies neck lump, Denies nose pain, Denies odynophagia, Denies post-nasal drip, Denies sinus pain, Denies sinus pressure, Denies swelling in mouth, Denies swelling in throat, Denies sore throat, Denies vertigo, Denies voice changes Cardiovascular: Denies as per HPI, Denies chest pain, Denies claudication, Denies decreased exercise tolerance, Denies dyspnea on exertion, Denies edema, Denies high blood pressure, Denies irregular heart beat, Denies leg edema, Denies lightheadedness, Denies orthopnea, Denies palpitations, Denies paroxysmal nocturnal dyspnea, Denies phlebitis, Denies rapid heart beat, Denies shortness of breath, Denies syncope Respiratory: Reports as per HPI, Reports dyspnea, Denies hemoptysis, Denies pain on inspiration, Denies respiratory infections, Denies snoring Gastrointestinal: Reports as per HPI, Reports loss of appetite, Denies change in bowel habits, Denies coffee ground emesis, Denies diarrhea, Denies heartburn, Denies melena Genitourinary: Reports as per HPI, Reports flank pain Menstruation: Reports as per HPI, Denies amenorrhea, Denies amenorrhea on BC, Denies currently menstrual, Denies cycle < 21 days, Denies cycle > 35 days, Denies cycle variable, Denies menses 1-7 days, Denies menses 8 or > days, Denies menses variable, Denies period heavy, Denies period light, Denies period normal, Denies period spotting, Denies post hysterectomy, Denies postmenopausal, Denies premenarcheal Musculoskeletal: Reports as per HPI Past Medical History Past Medical History: Asthma, Chest Pain / Angina, GERD/Reflux, Hyperlipidemia, Hypertension, Myocardial Infarction ([place]) Additional Past Medical History / Comment(s): Hiatal Hernia, hx 2 ulcers in stomach; Bursitis both knees. Hx pancreatitis, SOB w/exertion due to hernia Last Myocardial Infarction Date:: 07/2020 History of Any Multi-Drug Resistant Organisms: None Reported Past Surgical History: Back Surgery, Heart Catheterization, Heart Catheterization With Stent, Hysterectomy, Orthopedic Surgery, Tonsillectomy Additional Past Surgical History / Comment(s): Back surgery with hardware, L carpal tunnel, L foot surgery, Past Anesthesia/Blood Transfusion Reactions: Previous Problems w/ Anesthesia, Motion Sickness, Postoperative Nausea & Vomiting (PONV) Additional Past Anesthesia/Blood Transfusion Reaction / Comment(s): was told stopped breathing during EGD Date of Last Stent Placement:: unknown Past Psychological History: Depression Smoking Status: Never smoker Past Alcohol Use History: Occasional Past Drug Use History: None Reported - Past Family History Mother Family Medical History: No Reported History, Asthma, Diabetes Mellitus Father Family Medical History: No Reported History Additional Family Medical History / Comment(s): Father lived to be 90yrs. Sister(s) Family Medical History: No Reported History Daughter(s) Family Medical History: No Reported History Medications and Allergies Home Medications Medication Instructions Recorded Confirmed Type ALPRAZolam [Xanax] 0.25 mg PO HS 11/01/18 10/07/20 History Atorvastatin [Lipitor] 20 mg PO DAILY 04/14/20 10/07/20 History Ferrous Sulfate [Iron (65 MG 325 mg PO DAILY 08/24/20 10/07/20 History Elemental)] Metoprolol Tartrate [Lopressor] 25 mg PO BID 08/24/20 10/07/20 History Omeprazole 20 mg PO BID 08/24/20 10/07/20 History Lenalidomide [Revlimid] 25 mg PO DIRECTED 10/07/20 10/07/20 History Multivitamins, Thera [Multivitamin 1 tab PO DAILY 10/07/20 10/07/20 History (formulary)] Sertraline [Zoloft] 50 mg PO DAILY 10/07/20 10/07/20 History Spironolactone [Aldactone] 25 mg PO BID 10/07/20 10/07/20 History dexAMETHasone [Dexamethasone] 20 mg PO DIRECTED 10/07/20 10/07/20 History Allergies Allergy/AdvReac Type Severity Reaction Status Date / Time No Known Allergies Allergy Verified 10/07/20 19:46 Physical Exam Vitals: Vital Signs Temp Pulse Pulse Resp BP BP Pulse Ox 10/08/20 12:00 98.0 F 110 H 19 108/74 93 L 10/08/20 08:00 97.6 F 69 19 107/75 92 L 10/07/20 23:44 67 16 120/62 93 L 10/07/20 20:00 67 16 116/76 98 10/07/20 19:00 61 16 101/70 99 10/07/20 16:38 98 F 58 L 16 110/79 99 Genitourinary mild degree of respiratory distress. Breathing is essentially nonlabored this point in time. Head exam was generally normal. There was no scleral icterus or corneal arcus. Mucous membranes were moist. Neck was supple and without jugular venous distension, thyromegaly, or carotid bruits. Carotids were easily palpable bilaterally. There was no adenopathy. Lungs sounds are diminished along with some dullness to percussion the right lung base Cardiac exam revealed the PMI to be normally situated and sized. The rhythm was regular and no extrasystoles were noted during several minutes of auscultation. The first and second heart sounds were normal and physiologic splitting of the second heart sound was noted. There were no murmurs, rubs, clicks, or gallops. Abdomen slightly distended. No direct tenderness. No rebound tenderness or guarding. Extremities revealed +1 pitting edema there is no cyanosis or clubbing Neurologically, the patient is awake and alert and the patient does not have any focal neurological deficit. Cranial nerves are essentially intact. Results - Laboratory Findings CBC and BMP: 10/08/20 08:06 10/08/20 08:06 ABG WBC 8.4 k/uL (3.8-10.6) 10/08/20 08:06 RBC 5.74 m/uL (3.80-5.40) H 10/08/20 08:06 Hgb 17.3 gm/dL (11.4-16.0) H 10/08/20 08:06 Hct 55.3 % (34.0-46.0) H 10/08/20 08:06 MCV 96.3 fL (80.0-100.0) 10/08/20 08:06 MCH 30.2 pg (25.0-35.0) 10/08/20 08:06 MCHC 31.3 g/dL (31.0-37.0) 10/08/20 08:06 RDW 17.2 % (11.5-15.5) H 10/08/20 08:06 Plt Count 143 k/uL (150-450) L 10/08/20 08:06 MPV 9.3 10/08/20 08:06 Neutrophils % 76 % 10/08/20 08:06 Lymphocytes % 14 % 10/08/20 08:06 Monocytes % 7 % 10/08/20 08:06 Eosinophils % 0 % 10/08/20 08:06 Basophils % 1 % 10/08/20 08:06 Neutrophils # 6.4 k/uL (1.3-7.7) 10/08/20 08:06 Lymphocytes # 1.1 k/uL (1.0-4.8) 10/08/20 08:06 Monocytes # 0.6 k/uL (0-1.0) 10/08/20 08:06 Eosinophils # 0.0 k/uL (0-0.7) 10/08/20 08:06 Basophils # 0.1 k/uL (0-0.2) 10/08/20 08:06 Hypochromasia Slight 10/08/20 08:06 Anisocytosis Slight 10/08/20 08:06 Macrocytosis Slight 10/08/20 08:06 PT 13.4 sec (9.0-12.0) H 10/07/20 18:39 INR 1.3 (<1.2) H 10/07/20 18:39 APTT 22.6 sec (22.0-30.0) 10/07/20 18:39 Sodium 135 mmol/L (137-145) L 10/08/20 08:06 Potassium 4.7 mmol/L (3.5-5.1) 10/08/20 08:06 Chloride 106 mmol/L (98-107) 10/08/20 08:06 Carbon Dioxide 21 mmol/L (22-30) L 10/08/20 08:06 Anion Gap 8 mmol/L 10/08/20 08:06 BUN 36 mg/dL (7-17) H 10/08/20 08:06 Creatinine 0.96 mg/dL (0.52-1.04) 10/08/20 08:06 Est GFR (CKD-EPI)AfAm 68 (>60 ml/min/1.73 sqM) 10/08/20 08:06 Est GFR (CKD-EPI)NonAf 59 (>60 ml/min/1.73 sqM) 10/08/20 08:06 Glucose 107 mg/dL (74-99) H 10/08/20 08:06 Plasma Lactic Acid Gonzalo 1.8 mmol/L (0.7-2.0) 10/07/20 17:50 Calcium 10.1 mg/dL (8.4-10.2) 10/08/20 08:06 Magnesium 1.9 mg/dL (1.6-2.3) 10/07/20 17:50 Total Bilirubin 3.5 mg/dL (0.2-1.3) H 10/08/20 08:06 AST 80 U/L (14-36) H 10/08/20 08:06 ALT 52 U/L (4-34) H 10/08/20 08:06 Alkaline Phosphatase 194 U/L (38-126) H 10/08/20 08:06 Troponin I 0.268 ng/mL (0.000-0.034) H* 10/07/20 23:55 Total Protein 5.6 g/dL (6.3-8.2) L 10/08/20 08:06 Albumin 3.3 g/dL (3.5-5.0) L 10/08/20 08:06 PT/INR, D-dimer PT 13.4 sec (9.0-12.0) H 10/07/20 18:39 INR 1.3 (<1.2) H 10/07/20 18:39 Abnormal lab findings: Abnormal Labs 10/07/20 10/07/20 10/07/20 17:50 17:50 17:50 RBC 6.17 H Hgb 18.8 H Hct 59.3 H* RDW 17.2 H Plt Count Neutrophils # 7.9 H PT INR Sodium 136 L Carbon Dioxide BUN 36 H Glucose Calcium 10.5 H Total Bilirubin 4.4 H AST 90 H ALT 57 H Alkaline Phosphatase 219 H Troponin I 0.263 H* Total Protein Albumin 10/07/20 10/07/20 10/07/20 18:39 20:53 23:55 RBC Hgb Hct RDW Plt Count Neutrophils # PT 13.4 H INR 1.3 H Sodium Carbon Dioxide BUN Glucose Calcium Total Bilirubin AST ALT Alkaline Phosphatase Troponin I 0.260 H* 0.268 H* Total Protein Albumin 10/08/20 10/08/20 08:06 08:06 RBC 5.74 H Hgb 17.3 H Hct 55.3 H RDW 17.2 H Plt Count 143 L Neutrophils # PT INR Sodium 135 L Carbon Dioxide 21 L BUN 36 H Glucose 107 H Calcium Total Bilirubin 3.5 H AST 80 H ALT 52 H Alkaline Phosphatase 194 H Troponin I Total Protein 5.6 L Albumin 3.3 L - Diagnostic Findings Chest x-ray: image reviewed Assessment and Plan Plan: 1 right-sided pleural effusion, post thoracentesis with removal of 700 cc of pleural fluid. Awaiting fluids analysis. Clinically the patient improved and felt better after the thoracentesis 2 moderate sized pericardial effusion without any signs of cardiac tamponade 3 Multiple Myeloma with a Possibility of Light Chain deposition within the Myocardium and Restrictive Cardiomyopathy. The Patient is currently on Revlimid 4 hypertension 5 hyperlipidemia 6 nonocclusive coronary artery disease 7 hiatal hernia status post robotic-assisted laparoscopic repair of an incarcerated paraesophageal hernia back in general 2020 9 mild intermittent bronchial asthma 10 abnormal CAT scan of the abdomen showing some and colitis versus colonic mass . The patient has wall thickening at the level of the cecum and the right hemicolon, could be nonspecific versus malignancy 11 anasarca 12 abnormal troponin, consider troponin leak versus non-STEMI Plan Right-sided thoracentesis was done and a total of 700 mL of pleural fluid was aspirated. Fluid will be sent for analysis. Echocardiogram was noted. Oncology consultation. Cardiology consultation. Chest x-rays to follow post thoracentesis. We'll continue to follow.
--- NOTE | 2020-10-08 16:46 | P.PCN ---
Date of Procedure: 10/08/20 Operative Findings: Preoperative Diagnosis: Right-sided pleural effusion Postoperative Diagnosis: Right-sided pleural effusion Procedure(s) Performed: Thoracentesis Anesthesia: local Surgeon: Marko Lewis Estimated Blood Loss (ml): 0 Pathology: none sent Condition: stable Disposition: same day Operative Findings: A time out was performed and the chest x-ray was reviewed, the appropriate side was confirmed and marked. My hands were washed immediately prior to the procedure. I wore a surgical cap, mask with protective eyewear, sterile gown and sterile gloves throughout the procedure. The patient was prepped and draped in a sterile manner using chlorhexidine scrub after the appropriate level was percussed and confirmed by ultrasound. 1% lidocaine was used to anesthesize the skin, subcutaneous tissue, superior aspect of the rib periosteum and parietal pleura. A finder needle was then introduced over the superior aspect of the rib to locate the pleural fluid; 2colored fluid was aspirated at a depth of approximately 2 cm. A 10-blade scalpel was used to sherry the skin at the insertion site. The [id number] needle was then introduced through the skin incision into the pleural space using negative aspiration pressure and the red colometric indicator to confirm appropriate positioning of the needle. The thoracentesis catheter was then threaded without difficulty. 750 ml of turbid colored fluid was removed without difficulty. The catheter was then removed. No immediate complications were noted during the procedure. A post-procedure chest x-ray is pending at the time of this note. The fluid will be sent for studies. Estimated blood loss is 0cc
[2020-10-08] MEDS: FUROSEMIDE 10 MG/ML 4 ML VIAL IV SCH (17:08)
[2020-10-08] MEDS: PANTOPRAZOLE 40 MG TABLET PO SCH (17:08)
--- NOTE | 2020-10-08 17:11 | XR ---
EXAMINATION TYPE: XR chest 1V DATE OF EXAM: 10/08/2020 COMPARISON: 10/07/2020 HISTORY: Thoracentesis TECHNIQUE: Single view FINDINGS: The heart is enlarged. There is blunting right costophrenic angle. There is no pneumothorax . There are chest leads. There is no obvious heart failure. IMPRESSION: There is decrease in the right pleural effusion compared to yesterday. No pneumothorax. M oderate cardiomegaly.
[2020-10-08 19:14] LABS: Appearance,BF Hazy; Color,BF Yellow
[2020-10-08 19:15] LABS: Nucleated Cells, Body Fluid 127 /uL; RBC, Body Fluid 3925 /uL
[2020-10-08 19:17] LABS: Mononuclear WBC,Body Fluid 90 %; Polynuclear WBC,Body Fluid 10 %; Total Cells Counted,Body Fluid 100
[2020-10-08] MEDS: ALPRAZolam 0.25 MG TAB PO SCH (20:37)
[2020-10-08] MEDS: SPIRONOLACTONE 25 MG TAB PO SCH (20:37)
[2020-10-08] MEDS: METOPROLOL TARTRATE 25 MG TAB PO SCH (20:38)
--- NOTE | 2020-10-08 23:40 | US ---
EXAMINATION TYPE: US venous doppler duplex LE BI DATE OF EXAM: 10/08/2020 10:40 PM COMPARISON: none CLINICAL HISTORY: assess dvt. Multiple myeloma; generalized weakness; bilateral LE swelling SIDE PERFORMED: Bilateral TECHNIQUE: The lower extremity deep venous system is examined utilizing real time linear array sonog berhane with graded compression, doppler sonography and color-flow sonography. VESSELS IMAGED: Common Femoral Vein Deep Femoral Vein Greater Saphenous Vein * Femoral Vein Popliteal Vein Small Saphenous Vein * Proximal Calf Veins (* superficial vessels) Pulsatile CFV PW Doppler waveform is noted bilaterally and is suggestive of CHF. Right Leg: Negative for DVT; right groin lymph node is noted. Left Leg: Negative for DVT; couple of left groin lymph nodes are seen Edema channels are seen at Popliteal levels bilaterally. IMPRESSION: No evidence of deep vein thrombosis in both legs.
[2020-10-09 04:54] LABS: Glucose, BF Source Pleural Fluid; Glucose, Body Fluid 96 mg/dL; LDH, Body Fluid Source Pleural Fluid
[2020-10-09] MEDS: PANTOPRAZOLE 40 MG TABLET PO SCH (06:47)
[2020-10-09] MEDS: FUROSEMIDE 10 MG/ML 4 ML VIAL IV SCH ×2 (08:59→15:44)
[2020-10-09] MEDS: METOPROLOL TARTRATE 25 MG TAB PO SCH (09:00)
[2020-10-09] MEDS ORDERED: ATORVASTATIN 20 MG TAB PO SCH (09:00)
[2020-10-09] MEDS: SERTRALINE 50 MG TAB PO SCH (09:00)
[2020-10-09] MEDS ORDERED: FERROUS SULFATE 325 MG TAB PO SCH (09:00)
[2020-10-09] MEDS: SPIRONOLACTONE 25 MG TAB PO SCH ×2 (09:00→19:54)
[2020-10-09 10:18] LABS: Potassium 4.7 mmol/L (3.5-5.1)
[2020-10-09 10:19] LABS: Albumin 3.2 g/dL (3.5-5.0); Bilirubin, Conjugated 0.8 mg/dL (0.0-0.3); Bilirubin, Delta 1.8 mg/dL (0.0-0.2); Bilirubin,Unconjugated 0.9 mg/dL (0.0-1.1); Calcium 10.1 mg/dL (8.4-10.2); Total Bilirubin 3.5 mg/dL (0.2-1.3); Total Protein 5.7 g/dL (6.3-8.2)
[2020-10-09 10:29] LABS: Anisocytosis Slight; Basophils # (A) 0.1 k/uL (0-0.2); Basophils % (A) 1 %; Eosinophils % (A) 0 %; HGB 17.6 gm/dL (11.4-16.0); Hypochromasia Slight; Lymphocytes # (A) 1.1 k/uL (1.0-4.8); Lymphocytes % (A) 13 %; MCH 29.8 pg (25.0-35.0); MCV 96.3 fL (80.0-100.0); Macrocytosis Slight; Mean Platelet Volume 9.1; Monocytes # (A) 0.4 k/uL (0-1.0); Monocytes % (A) 5 %; Neutrophils # (A) 6.5 k/uL (1.3-7.7); Neutrophils % (A) 78 %; Platelet Count 132 k/uL (150-450); RBC 5.89 m/uL (3.80-5.40); RDW 17.3 % (11.5-15.5); WBC 8.4 k/uL (3.8-10.6)
[2020-10-09 10:44] LABS: HCT 56.7 % (34.0-46.0)
--- NOTE | 2020-10-09 11:03 | P.PN ---
Subjective Progress Note Date: 10/09/20 This patient was hospitalized for worsening shortness of breath and generalized weakness. She was found to have a right-sided pleural effusion along with some pericardial effusion. I was consulted regarding the pleural effusion was asked to provide the patient some symptomatic relief via thoracentesis. The patient has a very long and complicated history. I initially saw her back beginning of the year after she underwent an robotic-assisted laparoscopic repair of an incarcerated paraesophageal hernia and this was done on 04/19/2020. Since then, her condition has been gradually deteriorating. The patient lost about 20 pounds after hernia surgery in 04/22 unit in 07/21 she developed chest discomfort and shortness of breath while in [place] and was admitted to the hospital. She was diagnosed with a and STEMI and congestive heart failure. She had cardiac catheterization but apparently no specific intervention was required. The patient remained short of breath despite treatment for congestive heart failure, and also complained of intermittent lower exudate swelling. She was admitted for further management, with chest x-ray and CTA showing possible pericardial e ffusion. Echocardiogram showed a small pericardial effusion without definite compromise, but appearance of the myocardium was highly suspicious for cardiac amyloidosis. There was a history of amyloidosis in her mother and a paternal aunt. Patient's lambda light chain levels were increased at 73.4 mg/dL. She had additional labs ordered, with prophylactic was showing no monoclonal protein. However kappa light chain was normal at 1.38, indicating significant K/L ratio abnormality, highly suspicious for a monoclonal process. The patienthad a bone marrow aspiration biopsy on 09/18/20. This revealed overt multiple myeloma with 20-30% involvement with lambda restricted monoclonal plasma cells. bone marrow was negative for amyloid, 24 hr urine showed lambda light chain of 2.02 grams per liter, and M protein of about 350 mg in 24 hours. on survey showed possible lucent areas in the calvarium, and right proximal humerus. Additional labs to check for MPD, given the high normal hemoglobin were negative. T he patient was recommended to start treatment for myeloma with the RVD regimen, which would also be an effective regimen to treat amyloidosis. She was supposed to start treatment on 10/11/20. The patient came in to the hospital this time as she was feeling quite weak and had a near syncopal episode. Having worsening shortness of breath. Ultrasound the chest was done that showed a right-sided pleural effusion. CT of the abdomen and pelvis was performed because of complains of abdominal bloating and tightness which did not reveal any specific symptoms other than possible nonspec ific right-sided colitis. There was a small pericardial effusion, with ejection fraction slightly less than her previous level at 40-25%. Right-sided pleural effusion was also seen confirmed on ultrasound. Troponins were mildly elevated in the 0.2-0.3 range. There was also evidence of some right-sided pleural effusion. A thoracentesis was done and a total of 7 50 mL of pleural fluid was aspirated from the right lung. 10/09/2020, the patient is doing well. The patient has no specific complaints. She is less short of breath compared to yesterday. The thoracentesis helped quite a bit in terms of her breathing and the patient is breathing easier for today. Pleural fluid is more consistent with a transudate. The pleural fluid protein is low and LDH is also on the lower side consistent with CHF. Meanwhile, the patient is on diuretics. She is resting comfortably in bed. No other new complaints otherwise for now. Objective - Vital Signs Vital signs: Vital Signs Temp 97.7 F 10/09/20 08:55 Pulse 79 10/09/20 08:55 Resp 19 10/09/20 08:55 BP 115/76 10/09/20 08:55 Pulse Ox 95 10/09/20 08:55 Intake & Output 10/08/20 10/09/20 10/09/20 18:59 06:59 18:59 Intake Total 240 Output Total 750 Balance -510 Weight 62.596 kg 64.7 kg Intake: Oral 240 Output: Drainage 750 Right Chest 750 Other: Voiding Method Bedside Commode Bedside Commode Toilet Bedside Commode # Voids 3 1 - Exam Genitourinary mild degree of respiratory distress. Breathing is essentially nonlabored this point in time. Head exam was generally normal. There was no scleral icterus or corneal arcus. Mucous membranes were moist. Neck was supple and without jugular venous distension, thyromegaly, or carotid bruits. Carotids were easily palpable bilaterally. There was no adenopathy. Lungs sounds are diminished along with some dullness to percussion the right lung base Cardiac exam revealed the PMI to be normally situated and sized. The rhythm was regular and no extrasystoles were noted during several minutes of auscultation. The first and second heart sounds were normal and physiologic splitting of the second heart sound was noted. There were no murmurs, rubs, clicks, or gallops. Abdomen slightly distended. No direct tenderness. No rebound tenderness or guarding. Extremities revealed +1 pitting edema there is no cyanosis or clubbing Neurologically, the patient is awake and alert and the patient does not have any focal neurological deficit. Cranial nerves are essentially intact. - Labs CBC & Chem 7: 10/09/20 09:43 10/09/20 09:43 Labs: Abnormal Lab Results - Last 24 Hours (Table) 10/08/20 10/09/20 10/09/20 Range/Units 08:06 09:43 09:43 RBC 5.89 H (3.80-5.40) m/uL Hgb 17.6 H (11.4-16.0) gm/dL Hct 56.7 H (34.0-46.0) % RDW 17.3 H (11.5-15.5) % Plt Count 132 L (150-450) k/uL Sodium 133 L (137-145) mmol/L BUN 39 H (7-17) mg/dL Creatinine 1.06 H (0.52-1.04) mg/dL Glucose 153 H (74-99) mg/dL Total Bilirubin 3.5 H (0.2-1.3) mg/dL Conjugated Bilirubin 0.8 H (0.0-0.3) mg/dL Delta Bilirubin 1.8 H (0.0-0.2) mg/dL AST 85 H (14-36) U/L ALT 56 H (4-34) U/L Alkaline Phosphatase 187 H (38-126) U/L Total Protein 5.7 L (6.3-8.2) g/dL Albumin 3.2 L (3.5-5.0) g/dL Prealbumin <5.0 L (18.0-42.0) mg/dL Microbiology - Last 24 Hours (Table) 10/08/20 16:40 Gram Stain - Preliminary Pleural Fluid Body Fluid Culture - Preliminary 10/08/20 16:40 Anaerobic Culture - Preliminary Pleural Fluid 10/08/20 16:40 Acid Fast Bacilli Culture - Preliminary Pleural Fluid 10/08/20 16:40 Fungal Culture - Preliminary Pleural Fluid Assessment and Plan Plan: 1 right-sided pleural effusion, post thoracentesis with removal of 700 cc of pleural fluid. Awaiting fluids analysis. Clinically the patient improved and felt better after the thoracentesis 2 moderate sized pericardial effusion without any signs of cardiac tamponade 3 Multiple Myeloma with a Possibility of Light Chain deposition within the Myocardium and Restrictive Cardiomyopathy. The Patient is currently on Revlimid 4 hypertension 5 hyperlipidemia 6 nonocclusive coronary artery disease 7 hiatal hernia status post robotic-assisted laparoscopic repair of an incarcerated paraesophageal hernia back in general 2020 9 mild intermittent bronchial asthma 10 abnormal CAT scan of the abdomen showing some and colitis versus colonic mass . The patient has wall thickening at the level of the cecum and the right hemicolon, could be nonspecific versus malignancy 11 anasarca 12 abnormal troponin, consider troponin leak versus non-STEMI Plan Right-sided thoracentesis was done and a total of 700 mL of pleural fluid was aspirated. The fluid is most likely a transudate. Fluids flow cytometry has been ordered. Chest x-ray shows improvement in the volume status without any complications postthoracentesis. Continue diuretics. We'll follow as needed.
--- NOTE | 2020-10-09 11:36 | P.PN ---
Subjective Progress Note Date: 10/09/20 HISTORY OF PRESENT ILLNESS: Patient examined this morning the bedside. Patient denies chest pain or pressure. She states her shortness of breath has improved. She underwent right thoracentesis yesterday with removal of 750 mL. Echocardiogram completed reveals ejection fraction 45-50%, inferior LV wall hypokinesis and inferior septal LV wall hypokinesis. Moderate generalized pericardial effusion. Blood pressure 124/80. The patient remains on IV Lasix. PHYSICAL EXAM: VITAL SIGNS: Reviewed. GENERAL: Well-developed in no acute distress. NECK: Supple. No JVD or thyromegaly LUNGS: Respirations even and unlabored. Lungs diminished to auscultation bila terally. HEART: Regular rate and rhythm. S1 and S2 heard. EXTREMITIES: Normal range of motion. No clubbing or cyanosis. Peripheral pulses intact. No lower extremity edema ASSESSMENT: Moderate generalized pericardial effusion Abnormal troponins, not suggestive of acute coronary syndrome History of multiple myeloma Right pleural effusion, status post thoracentesis Hypertension Hyperlipidemia PLAN: Continue IV Lasix Continue additional cardiac medications Daily weights Accurate I&O Monitor kidney function Further recommendations pending patient's course Nurse practitioner note has been reviewed by physician. Signing provider agrees with the documented findings, assessment, and plan of care. Objective - Vital Signs Vital signs: Vital Signs Temp 97.7 F 10/09/20 08:55 Pulse 79 10/09/20 08:55 Resp 19 10/09/20 08:55 BP 115/76 10/09/20 08:55 Pulse Ox 95 10/09/20 08:55 Intake & Output 10/08/20 10/09/20 10/09/20 18:59 06:59 18:59 Intake Total 240 Output Total 750 Balance -510 Weight 62.596 kg 64.7 kg Intake: Oral 240 Output: Drainage 750 Right Chest 750 Other: Voiding Method Bedside Commode Bedside Commode Toilet Bedside Commode # Voids 3 1 - Labs CBC & Chem 7: 10/09/20 09:43 10/09/20 09:43 Labs: Abnormal Lab Results - Last 24 Hours (Table) 10/08/20 10/09/20 10/09/20 Range/Units 08:06 09:43 09:43 RBC 5.89 H (3.80-5.40) m/uL Hgb 17.6 H (11.4-16.0) gm/dL Hct 56.7 H (34.0-46.0) % RDW 17.3 H (11.5-15.5) % Plt Count 132 L (150-450) k/uL Sodium 133 L (137-145) mmol/L BUN 39 H (7-17) mg/dL Creatinine 1.06 H (0.52-1.04) mg/dL Glucose 153 H (74-99) mg/dL Total Bilirubin 3.5 H (0.2-1.3) mg/dL Conjugated Bilirubin 0.8 H (0.0-0.3) mg/dL Delta Bilirubin 1.8 H (0.0-0.2) mg/dL AST 85 H (14-36) U/L ALT 56 H (4-34) U/L Alkaline Phosphatase 187 H (38-126) U/L Total Protein 5.7 L (6.3-8.2) g/dL Albumin 3.2 L (3.5-5.0) g/dL Prealbumin <5.0 L (18.0-42.0) mg/dL Microbiology - Last 24 Hours (Table) 10/08/20 16:40 Gram Stain - Preliminary Pleural Fluid Body Fluid Culture - Preliminary 10/08/20 16:40 Anaerobic Culture - Preliminary Pleural Fluid 10/08/20 16:40 Acid Fast Bacilli Culture - Preliminary Pleural Fluid 10/08/20 16:40 Fungal Culture - Preliminary Pleural Fluid
--- NOTE | 2020-10-09 12:12 | P.PN ---
Subjective Progress Note Date: 10/09/20 This 70-year-old pleasant female patient of Dr. Hand, with underlying history of paraesophageal hiatal hernia and GERD, chronic bronchial asthma, mild intermittent hypertension, hyperlipidemia, and recently diagnosed to have amyloidosis and multiple diet myeloma, through confirmedbone marrow biopsy, 2 weeks ago. He she is supposed to start treatment with Dr. Madrid this 10/11/2020. She also sees Dr. mercer, for what was suspected to be pericardial effusion. She was recently hospitalized, 08/25/2020, for shortness of breath, sees Dr. Soria cardiology and was diagnosed to have an STEMI, in, 07/17/2020, in the clinic in [facility]. She underwent a heart cath, the second time and was found to have nonobstructive CAD, diastolic CHF, EF was documented to be normal that time, and was discharged with Cozaar and Lopressor Lasix and potassium. She was admitted from our facility Jul, 2020, with chronic dyspnea secondary to restrictive cardiomyopathy, pericardial effusion, and pleural effusion, possible to get amyloidosis at that time. She now comes in to the emergency room, which shortness of breath, edema, difficulty of breathing, patient also has anasarca, generalized weakness, and fatigue, patient felt lightheaded and dizzy, patient did not pass out, has diff iculty in ambulating and has difficulty in getting up when she was lowered down to the floor upon her fall, she has no appetite, denies any new weight loss, however she is gaining more weight with edema, her pulse ox at home was around 90% on room air, in the emergency room, she has no leukocytosis, with WBCs 10, hemoglobin is 18.8, creatinine of 0.9, BUN of 36, sodium 136, platelet count is 164 troponin of 0.263, alkaline phosphatase elevated to 19, AST ALT, elevated, total bili elevated 4.4. Consults were made with cardiology, and oncology for the elevated troponin, and amyloidosis, multiple myeloma echocardiogram is requested for pleural effusion,, patient has seen Dr. hills in the past, we will obtain his service, and a thoracic ultrasound Review Of Systems: Constitutional: No fever, no chills, no night sweats. No weight change. No weakness, fatigue or lethargy. No daytime sleepiness. EENT: No headache. No blurred vision or double vision, no loss of vision. No loss of Hearing, no ringing in the ears, no dizziness. No nasal drainage or congestion. No epistaxis. No sore throat. Lungs: Reports shortness of breath improved, cough, no sputum production. No wheezing. Cardiovascular: No chest pain, no lower extremity edema. No palpitations. No paroxysmal nocturnal dyspnea. No orthopnea. No lightheadedness or dizziness. No syncopal episodes. Abdominal: no abdominal discomfort. No nausea, vomiting. no diarrhea. No constipation. No bloody or tarry stools. no loss of appetite. Genitourinary: No dysuria, increased frequency, urgency. No urinary retention. Musculoskeletal: No myalgias. Reports muscle weakness bilateral lower extr emities, no gait dysfunction, no frequent falls. No back pain. No neck pain. Integumentary: No wounds, no lesions. No rash or pruritus. No unusual bruising. No change in hair or nails. Neurologic: No aphasia. No facial droop. No change in mentation. No head injury. No headache. No paralysis. No paresthesia. Psychiatric: No depression. No anxiety. No mood swings. Endocrine: No abnormal blood sugars. No weight change. No excessive sweating or thirst. Physical Exam: General Appearance: Alert, cooperative, no distress, this is a 70-year-old pleasant female appears stated age. Neck HEENT: Supple, no lymphadenopathy, no thyroid enlargement, no carotid bruits. Lungs: Clear to auscultation without crackles or wheezes, diminished no rhonchi, no deformity. Chest Wall: Chest wall normal expansion with deep inspiration no tenderness and no deformity was found on exam, no costochondral pain or discomfort. Heart: Regular rate and rhythm, S1, S2 normal, no murmur, rub or gallop. Back: Symmetric, no curvature, ROM normal, no CVA tenderness. Abdomen: Soft, non-tender, no rebound or rigidity, no hepatosplenomegaly. Extremities: Extremities normal, atraumatic, no cyanosis, 2+ bilateral lower extremity edema Pulses: 2+ and symmetric. Skin: Skin color, texture, tugor normal, no rashes or lesions. Neurologic: Alert oriented x3 cranial nerves II through XII intact, no motor deficit, no abnormal balance or gait Assessment/plan: 1. Acute on chronic dyspnea secondary with acute hypoxemic respiratory failure, currently multifactorial to include amyloidosis, with cardiomyopathy, moderate right pleural effusion, and recent diagnosis of pericardial effusion,, consult appreciated by pulmonology, cardiology, and oncology. Patient underwent a thoracentesis yesterday with removal of 750 ML's of tarry colored fluid without difficulty. Fluid will be sent for studies. IV Lasix, pre-albumin less than 5 2. Elevated troponins which is chronic,. Patient had recent heart catheterization in [place] was reported as negative for obstructive disease 07/2020. Cardiology consult and repeat troponins. Echocardiogram conclusion: EF between 45 and 50%, moderate concentric left ventricular atrophy, moderate generalized pericardial effusion present, right ventricle is mildly enlarged, ileus mildly dilated, mild pulmonary hypertension. Her ventricular systolic pressure measured by Doppler is 39.15 mmHg. 3. Amyloidosis, suspect cardiac cardiac cardiomyopathy, no treatment initiated yet, await consultation from Dr. Madrid, 4. Multiple myeloma, to start treatment this October 11, with Dr. Madrid, unknown protocol most likely would include dexamethasone and Velcade, Revlimid 5. transaminitis with elevated total bili / jaundice, no signs of hemolysis at this time, suspect obstructive in nature, check for total bili fractionation, and CAT scan of the liver gallbladder, , most likely secondary to amyloid as well, 3. Hyperlipidemia. Continue Lipitor 20 mg daily. 4. Hypertension. Continu Lopressor 25 mg twice daily. 5. Hiatal hernia status post robotic-assisted laparoscopic repair of incarcerated paraesophageal hernia in April 2020, stable. 6. Mild intermittent asthma, stable. 7. Gastroesophageal reflux disease and GI prophylaxis. Continue omeprazole 20 g twice daily. 8. Generalized anxiety disorder. Continue Xanax 0.25 mg twice daily. 9. DVT prophylaxis. Heparin subcu. 10. GI prophylaxis. Protonix 40 mg CODE STATUS: Full code Patient will be admitted to the hospital minimal 2 nights day. Discharge plan: More than likely home Impression and plan of care have been directed as dictated by the signing physician. Belinda Moore nurse practitioner acting as scribe for signing physician. Objective - Vital Signs Vital signs: Vital Signs Temp 97.7 F 10/09/20 08:55 Pulse 79 10/09/20 08:55 Resp 19 10/09/20 08:55 BP 115/76 10/09/20 08:55 Pulse Ox 95 10/09/20 08:55 Intake & Output 10/08/20 10/09/20 10/09/20 18:59 06:59 18:59 Intake Total 240 Output Total 750 Balance -510 Weight 62.596 kg 64.7 kg 64.7 kg Intake: Oral 240 Output: Drainage 750 Right Chest 750 Other: Voiding Method Bedside Commode Bedside Commode Toilet Bedside Commode # Voids 3 1 - Labs CBC & Chem 7: 10/09/20 09:43 10/09/20 09:43 Labs: Abnormal Lab Results - Last 24 Hours (Table) 10/08/20 10/09/20 10/09/20 Range/Units 08:06 09:43 09:43 RBC 5.89 H (3.80-5.40) m/uL Hgb 17.6 H (11.4-16.0) gm/dL Hct 56.7 H (34.0-46.0) % RDW 17.3 H (11.5-15.5) % Plt Count 132 L (150-450) k/uL Sodium 133 L (137-145) mmol/L BUN 39 H (7-17) mg/dL Creatinine 1.06 H (0.52-1.04) mg/dL Glucose 153 H (74-99) mg/dL Total Bilirubin 3.5 H (0.2-1.3) mg/dL Conjugated Bilirubin 0.8 H (0.0-0.3) mg/dL Delta Bilirubin 1.8 H (0.0-0.2) mg/dL AST 85 H (14-36) U/L ALT 56 H (4-34) U/L Alkaline Phosphatase 187 H (38-126) U/L Total Protein 5.7 L (6.3-8.2) g/dL Albumin 3.2 L (3.5-5.0) g/dL Prealbumin <5.0 L (18.0-42.0) mg/dL Microbiology - Last 24 Hours (Table) 10/08/20 16:40 Gram Stain - Preliminary Pleural Fluid Body Fluid Culture - Preliminary 10/08/20 16:40 Anaerobic Culture - Preliminary Pleural Fluid 10/08/20 16:40 Acid Fast Bacilli Culture - Preliminary Pleural Fluid 10/08/20 16:40 Fungal Culture - Preliminary Pleural Fluid
[2020-10-09] MEDS: ACETAMINOPHEN TAB 325 MG TAB PO PRN (13:38)
--- NOTE | 2020-10-09 16:48 | CT ---
EXAMINATION TYPE: CT angio chest DATE OF EXAM: 10/09/2020 2:43 PM COMPARISON: 08/25/2020. HISTORY: SOB, PE CT DLP: 262.7 mGycm Automated exposure control for dose reduction was used. CONTRAST: CTA scan of the thorax is performed with IV Contrast, patient injected with 80 mL of Isovue 370, pulm onary embolism protocol. MIP images are created and reviewed. FINDINGS: LUNGS: There is small to moderate right pleural effusion. Otherwise the lungs are grossly clear. No s ignificant infiltrate or pneumothorax seen. The tracheobronchial tree is patent. MEDIASTINUM: There is satisfactory enhancement of the pulmonary artery and its branches, there is no CT evidence for pulmonary embolism. There are no greater than 1 cm hilar or mediastinal lymph nodes. A few borderline prominent bilateral axillary lymph nodes, probably reactive. Cardiomegaly with smal l to moderate pericardial effusion is seen. Contrast reflux is seen to the level of the hepatic veins . OTHER: Partially imaged small volume upper abdominal ascites. Anasarca about the chest wall and imag ed upper abdomen seen. IMPRESSION: NO ACUTE PE. CARDIOMEGALY WITH PERICARDIAL EFFUSION AND CONTRAST REFLUXED HEPATIC VEINS. CORRELATE FOR HEART FAILU RE. ANASARCA WITH SMALL VOLUME ABDOMINAL ASCITES SUGGESTIVE OF THIRD SPACING. SMALL TO MODERATE RIGHT PLEURAL EFFUSION.
[2020-10-09 17:24] LABS: Protein, Total 5.6 g/dL (6.2-8.2)
[2020-10-09] MEDS: ALPRAZolam 0.25 MG TAB PO SCH (19:54)
[2020-10-10] MEDS: METOPROLOL TARTRATE 25 MG TAB PO SCH (06:18)
[2020-10-10] MEDS: PANTOPRAZOLE 40 MG TABLET PO SCH ×2 (06:36→16:32)
[2020-10-10 08:31] LABS: Free Kappa Lt Chain Qnt, Serum 1.92 mg/dL (0.33-1.94)
[2020-10-10] MEDS: FUROSEMIDE 10 MG/ML 4 ML VIAL IV SCH ×2 (08:58→16:32)
[2020-10-10] MEDS: SERTRALINE 50 MG TAB PO SCH (08:58)
[2020-10-10] MEDS: SPIRONOLACTONE 25 MG TAB PO SCH ×2 (08:58→19:44)
--- NOTE | 2020-10-10 10:22 | P.PN ---
Subjective Progress Note Date: 10/10/20 HISTORY OF PRESENT ILLNESS: Patient examined this morning the bedside. Patient denies chest pain or pressure. She states her shortness of breath has improved. She underwent right thoracentesis yesterday with removal of 750 mL. Echocardiogram completed reveals ejection fraction 45-50%, inferior LV wall hypokinesis and inferior septal LV wall hypokinesis. Moderate generalized pericardial effusion. Blood pressure 124/80. The patient remains on IV Lasix. 10/10/2020 Patient examined this morning. She is sitting up in the chair. She denies chest pain or pressure. She denies shortness of breath. She reports continued lower extremity edema. Telemetry reveals sinus bradycardia with a heart rate in the 50s. Patient did have a pause on telemetry this morning. Blood pressure 103/70. BUN 39. Creatinine 1.06. PHYSICAL EXAM: VITAL SIGNS: Reviewed. GENERAL: Well-developed in no acute distress. NECK: Supple. No JVD or thyromegaly LUNGS: Respirations even and unlabored. Lungs diminished to auscultation bilaterally. HEART: Regular rate and rhythm. S1 and S2 heard. EXTREMITIES: Normal range of motion. No clubbing or cyanosis. Peripheral pulses intact. 1-2+ lower extremity edema ASSESSMENT: Moderate generalized pericardial effusion Abnormal troponins, not suggestive of acute coronary syndrome History of multiple myeloma Right pleural effusion, status post thoracentesis Hypertension Hyperlipidemia PLAN: Decrease metoprolol to 12.5mg BID. Hold morning dose. Continue telemetry monitoring. Continue IV Lasix Continue additional cardiac medications Daily weights Accurate I&O Monitor kidney function Further recommendations pending patient's course Nurse practitioner note has been reviewed by physician. Signing provider agrees with the documented findings, assessment, and plan of care. Objective - Vital Signs Vital signs: Vital Signs Temp 98.2 F 10/10/20 08:02 Pulse 66 10/10/20 08:02 Resp 20 10/10/20 08:02 BP 103/70 10/10/20 08:02 Pulse Ox 96 10/10/20 08:02 Intake & Output 10/09/20 10/10/20 10/10/20 18:59 06:59 18:59 Intake Total 684 Output Total 4 2 Balance 680 -2 Weight 64.7 kg Intake: Oral 684 Output: Urine 3 Stool 1 2 Other: Voiding Method Toilet Toilet Bedside Commode Bedside Commode - Labs CBC & Chem 7: 10/09/20 09:43 10/09/20 09:43 Labs: Abnormal Lab Results - Last 24 Hours (Table) 10/09/20 10/09/20 10/09/20 Range/Units 09:43 09:43 09:43 RBC 5.89 H (3.80-5.40) m/uL Hgb 17.6 H (11.4-16.0) gm/dL Hct 56.7 H (34.0-46.0) % RDW 17.3 H (11.5-15.5) % Plt Count 132 L (150-450) k/uL Sodium 133 L (137-145) mmol/L BUN 39 H (7-17) mg/dL Creatinine 1.06 H (0.52-1.04) mg/dL Glucose 153 H (74-99) mg/dL Total Bilirubin 3.5 H (0.2-1.3) mg/dL Conjugated Bilirubin 0.8 H (0.0-0.3) mg/dL Delta Bilirubin 1.8 H (0.0-0.2) mg/dL AST 85 H (14-36) U/L ALT 56 H (4-34) U/L Alkaline Phosphatase 187 H (38-126) U/L Total Protein 5.7 L (6.3-8.2) g/dL Total Protein (PEP) 5.6 L (6.2-8.2) g/dL Albumin 3.2 L (3.5-5.0) g/dL Free Lambda LC, Quant 85.40 H (0.57-2.63) mg/dL Microbiology - Last 24 Hours (Table) 10/08/20 16:40 Acid Fast Bacilli Smear - Final Pleural Fluid Acid Fast Bacilli Culture - Preliminary 10/08/20 16:40 Gram Stain - Preliminary Pleural Fluid Body Fluid Culture - Preliminary
--- NOTE | 2020-10-10 10:37 | P.PN ---
Subjective Progress Note Date: 10/10/20 This patient was hospitalized for worsening shortness of breath and generalized weakness. She was found to have a right-sided pleural effusion along with some pericardial effusion. I was consulted regarding the pleural effusion was asked to provide the patient some symptomatic relief via thoracentesis. The patient has a very long and complicated history. I initially saw her back beginning of the year after she underwent an robotic-assisted laparoscopic repair of an incarcerated paraesophageal hernia and this was done on 04/19/2020. Since then, her condition has been gradually deteriorating. The patient lost about 20 pounds after hernia surgery in 04/22 unit in 07/21 she developed chest discomfort and shortness of breath while in [place] and was admitted to the hospital. She was diagnosed with a and STEMI and congestive heart failure. She had cardiac catheterization but apparently no specific intervention was required. The patient remained short of breath despite treatment for congestive heart failure, and also complained of intermittent lower exudate swelling. She was admitted for further management, with chest x-ray and CTA showing possible pericardial e ffusion. Echocardiogram showed a small pericardial effusion without definite compromise, but appearance of the myocardium was highly suspicious for cardiac amyloidosis. There was a history of amyloidosis in her mother and a paternal aunt. Patient's lambda light chain levels were increased at 73.4 mg/dL. She had additional labs ordered, with prophylactic was showing no monoclonal protein. However kappa light chain was normal at 1.38, indicating significant K/L ratio abnormality, highly suspicious for a monoclonal process. The patienthad a bone marrow aspiration biopsy on 09/18/20. This revealed overt multiple myeloma with 20-30% involvement with lambda restricted monoclonal plasma cells. bone marrow was negative for amyloid, 24 hr urine showed lambda light chain of 2.02 grams per liter, and M protein of about 350 mg in 24 hours. on survey showed possible lucent areas in the calvarium, and right proximal humerus. Additional labs to check for MPD, given the high normal hemoglobin were negative. T he patient was recommended to start treatment for myeloma with the RVD regimen, which would also be an effective regimen to treat amyloidosis. She was supposed to start treatment on 10/11/20. The patient came in to the hospital this time as she was feeling quite weak and had a near syncopal episode. Having worsening shortness of breath. Ultrasound the chest was done that showed a right-sided pleural effusion. CT of the abdomen and pelvis was performed because of complains of abdominal bloating and tightness which did not reveal any specific symptoms other than possible nonspec ific right-sided colitis. There was a small pericardial effusion, with ejection fraction slightly less than her previous level at 40-25%. Right-sided pleural effusion was also seen confirmed on ultrasound. Troponins were mildly elevated in the 0.2-0.3 range. There was also evidence of some right-sided pleural effusion. A thoracentesis was done and a total of 7 50 mL of pleural fluid was aspirated from the right lung. 10/09/2020, the patient is doing well. The patient has no specific complaints. She is less short of breath compared to yesterday. The thoracentesis helped quite a bit in terms of her breathing and the patient is breathing easier for today. Pleural fluid is more consistent with a transudate. The pleural fluid protein is low and LDH is also on the lower side consistent with CHF. Meanwhile, the patient is on diuretics. She is resting comfortably in bed. No other new complaints otherwise for now. \ 10/10/2020, the patient is comfortable in bed. Postthoracentesis. Ejection fraction on the echocardiogram showed 45-50%. She has still a component of moderate size pericardial effusion. No signs of any temporal. She remains on IV Lasix. No major respiratory distress at rest. No chest pain. Her electrolytes are stable. BUN is at 39 with a creatinine of 1 and sodium level is 133. White cell count at 8.4 with a hemoglobin of 17.6. She is currently on Decadron and Lasix or milligrams IV every 12 hours patient is also on Aldactone 25 mg twice a day. The CT angiogram showed small right-sided pleural effusion. Lungs are essentially clear. No pneumothorax. There is cardiomegaly. Objective - Vital Signs Vital signs: Vital Signs Temp 98.2 F 10/10/20 08:02 Pulse 66 10/10/20 08:02 Resp 20 10/10/20 08:02 BP 103/70 10/10/20 08:02 Pulse Ox 96 10/10/20 08:02 Intake & Output 10/09/20 10/10/20 10/10/20 18:59 06:59 18:59 Intake Total 684 240 Output Total 4 2 Balance 680 -2 240 Weight 64.7 kg Intake: Oral 684 240 Output: Urine 3 Stool 1 2 Other: Voiding Method Toilet Toilet Bedside Commode Bedside Commode - Exam Genitourinary mild degree of respiratory distress. Breathing is essentially nonlabored this point in time. Head exam was generally normal. There was no scleral icterus or corneal arcus. Mucous membranes were moist. Neck was supple and without jugular venous distension, thyromegaly, or carotid bruits. Carotids were easily palpable bilaterally. There was no adenopathy. Lungs sounds are diminished along with some dullness to percussion the right lung base Cardiac exam revealed the PMI to be normally situated and sized. The rhythm was regular and no extrasystoles were noted during several minutes of auscultation. The first and second heart sounds were normal and physiologic splitting of the second heart sound was noted. There were no murmurs, rubs, clicks, or gallops. Abdomen slightly distended. No direct tenderness. No rebound tenderness or g uarding. Extremities revealed +1 pitting edema there is no cyanosis or clubbing Neurologically, the patient is awake and alert and the patient does not have any focal neurological deficit. Cranial nerves are essentially intact. - Labs CBC & Chem 7: 10/09/20 09:43 10/09/20 09:43 Labs: Abnormal Lab Results - Last 24 Hours (Table) 10/09/20 10/09/20 Range/Units 09:43 09:43 RBC 5.89 H (3.80-5.40) m/uL Hgb 17.6 H (11.4-16.0) gm/dL Hct 56.7 H (34.0-46.0) % RDW 17.3 H (11.5-15.5) % Plt Count 132 L (150-450) k/uL Total Protein (PEP) 5.6 L (6.2-8.2) g/dL Free Lambda LC, Quant 85.40 H (0.57-2.63) mg/dL Microbiology - Last 24 Hours (Table) 10/08/20 16:40 Acid Fast Bacilli Smear - Final Pleural Fluid Acid Fast Bacilli Culture - Preliminary 10/08/20 16:40 Gram Stain - Preliminary Pleural Fluid Body Fluid Culture - Preliminary Assessment and Plan Plan: 1 right-sided pleural effusion, post thoracentesis with removal of 700 cc of pleural fluid. Awaiting fluids analysis. Clinically the patient improved and felt better after the thoracentesis monitor the fluid was a changes and and the patient is currently on Decadron and diuretics. 2 moderate sized pericardial effusion without any signs of cardiac tamponade 3 Multiple Myeloma with a Possibility of Light Chain deposition within the Myocardium and Restrictive Cardiomyopathy. The Patient is currently on Revlimid 4 hypertension 5 hyperlipidemia 6 nonocclusive coronary artery disease 7 hiatal hernia status post robotic-assisted laparoscopic repair of an incarcerated paraesophageal hernia back in general 2020 9 mild intermittent bronchial asthma 10 abnormal CAT scan of the abdomen showing some and colitis versus colonic mass . The patient has wall thickening at the level of the cecum and the right hemicolon, could be nonspecific versus malignancy 11 anasarca 12 abnormal troponin, consider troponin leak versus non-STEMI Plan Right-sided thoracentesis was done and a total of 700 mL of pleural fluid was aspirated. The fluid is most likely a transudate. Fluids flow cytometry has been ordered. Chest x-ray shows improvement in the volume status without any complications postthoracentesis. Continue diuretics. CAT scan of the chest was noted. There is no evidence of any pulmonary embolism. There may be some Donis's right-sided pleural effusion. Agree on Decadron. We'll continue to follow.
[2020-10-10 10:49] LABS: Calcium 9.8 mg/dL (8.4-10.2); Potassium 4.7 mmol/L (3.5-5.1)
--- NOTE | 2020-10-10 11:14 | P.PN ---
Subjective Progress Note Date: 10/10/20 This 70-year-old pleasant female patient of Dr. Hand, with underlying history of paraesophageal hiatal hernia and GERD, chronic bronchial asthma, mild intermittent hypertension, hyperlipidemia, and recently diagnosed to have amyloidosis and multiple diet myeloma, through confirmedbone marrow biopsy, 2 weeks ago. He she is supposed to start treatment with Dr. Madrid this 10/11/2020. She also sees Dr. mercer, for what was suspected to be pericardial effusion. She was recently hospitalized, 08/25/2020, for shortness of breath, sees Dr. Soria cardiology and was diagnosed to have an STEMI, in, 07/17/2020, in the clinic in [facility]. She underwent a heart cath, the second time and was found to have nonobstructive CAD, diastolic CHF, EF was documented to be normal that time, and was discharged with Cozaar and Lopressor Lasix and potassium. She was admitted from our facility Jul, 2020, with chronic dyspnea secondary to restrictive cardiomyopathy, pericardial effusion, and pleural effusion, possible to get amyloidosis at that time. She now comes in to the emergency room, which shortness of breath, edema, difficulty of breathing, patient also has anasarca, generalized weakness, and fatigue, patient felt lightheaded and dizzy, patient did not pass out, has diff iculty in ambulating and has difficulty in getting up when she was lowered down to the floor upon her fall, she has no appetite, denies any new weight loss, however she is gaining more weight with edema, her pulse ox at home was around 90% on room air, in the emergency room, she has no leukocytosis, with WBCs 10, hemoglobin is 18.8, creatinine of 0.9, BUN of 36, sodium 136, platelet count is 164 troponin of 0.263, alkaline phosphatase elevated to 19, AST ALT, elevated, total bili elevated 4.4. Consults were made with cardiology, and oncology for the elevated troponin, and amyloidosis, multiple myeloma echocardiogram is requested for pleural effusion,, patient has seen Dr. hills in the past, we will obtain his service, and a thoracic ultrasound 10/10: Patient is found resting comfortably in bed without any acute distress. Patient states that she is breathing better compared to yesterday. Chest CTA yesterday shows no acute PE, cardiomegaly with pericardial effusion and contrast reflux headache veins. Anasarca with small volume abdominal ascites suggested of third spacing. Small to moderate right pleural effusion. She has post thoracentesis. Ejection fraction on echocardiogram showed 45-50%. she remains on IV Lasix. Continues to have 2+ peripheral lower extremity edema. Review Of Systems: Constitutional: No fever, no chills, no night sweats. No weight change. No weakness, fatigue or lethargy. No daytime sleepiness. EENT: No headache. No blurred vision or double vision, no loss of vision. No loss of Hearing, no ringing in the ears, no dizziness. No nasal drainage or congestion. No epistaxis. No sore throat. Lungs: Reports shortness of breath improved, cough, no sputum production. No wheezing. Cardiovascular: No chest pain, no lower extremity edema. No palpitations. No paroxysmal nocturnal dyspnea. No orthopnea. No lightheadedness or dizziness. No syncopal episodes. Abdominal: no abdominal discomfort. No nausea, vomiting. no diarrhea. No constipation. No bloody or tarry stools. no loss of appetite. Genitourinary: No dysuria, increased frequency, urgency. No urinary retention. Musculoskeletal: No myalgias. Reports muscle weakness bilateral lower extremities, no gait dysfunction, no frequent falls. No back pain. No neck pain. Integumentary: No wounds, no lesions. No rash or pruritus. No unusual bruisin g. No change in hair or nails. Neurologic: No aphasia. No facial droop. No change in mentation. No head injury. No headache. No paralysis. No paresthesia. Psychiatric: No depression. No anxiety. No mood swings. Endocrine: No abnormal blood sugars. No weight change. No excessive sweating or thirst. Physical Exam: General Appearance: Alert, cooperative, no distress, this is a 70-year-old pleasant female appears stated age. Neck HEENT: Supple, no lymphadenopathy, no thyroid enlargement, no carotid bruits. Lungs: Clear to auscultation without crackles or wheezes, diminished no rhonchi, no deformity. Chest Wall: Chest wall normal expansion with deep inspiration no tenderness and no deformity was found on exam, no costochondral pain or discomfort. Heart: Regular rate and rhythm, S1, S2 normal, no murmur, rub or gallop. Back: Symmetric, no curvature, ROM normal, no CVA tenderness. Abdomen: Soft, non-tender, no rebound or rigidity, no hepatosplenomegaly. Extremities: Extremities normal, atraumatic, no cyanosis, 2+ bilateral lower extremity edema Pulses: 2+ and symmetric. Skin: Skin color, texture, tugor normal, no rashes or lesions. Neurologic: Alert oriented x3 cranial nerves II through XII intact, no motor deficit, no abnormal balance or gait Assessment/plan: 1. Acute on chronic dyspnea secondary with acute hypoxemic respiratory failure, currently multifactorial to include amyloidosis, with cardiomyopathy, moderate right pleural effusion, and recent diagnosis of pericardial effusion,, consult appreciated by pulmonology, cardiology, and oncology. Patient underwent a thoracentesis yesterday with removal of 750 ML's of tarry colored fluid without difficulty. Fluid will be sent for studies. IV Lasix, pre-albumin less than 5 2. Elevated troponins which is chronic,. Patient had recent heart catheterization in [place] was reported as negative for obstructive disease 07/2020. Cardiology consult and repeat troponins. Echocardiogram conclusion: EF between 45 and 50%, moderate concentric left ventricular atrophy, moderate generalized pericardial effusion present, right ventricle is mildly enlarged, il eus mildly dilated, mild pulmonary hypertension. Her ventricular systolic pressure measured by Doppler is 39.15 mmHg. 3. Amyloidosis, suspect cardiac cardiac cardiomyopathy, no treatment initiated yet, await consultation from Dr. Madrid, 4. Multiple myeloma, to start treatment this October 11, with Dr. Madrid, unknown protocol most likely would include dexamethasone and Velcade, Revlimid 5. transaminitis with elevated total bili / jaundice, no signs of hemolysis at this time, suspect obstructive in nature, check for total bili fractionation, and CAT scan of the liver gallbladder, , most likely secondary to amyloid as well, 3. Hyperlipidemia. Continue Lipitor 20 mg daily. 4. Hypertension. Continu Lopressor 25 mg twice daily. 5. Hiatal hernia status post robotic-assisted laparoscopic repair of incarcerated paraesophageal hernia in April 2020, stable. 6. Mild intermittent asthma, stable. 7. Gastroesophageal reflux disease and GI prophylaxis. Continue omeprazole 20 g twice daily. 8. Generalized anxiety disorder. Continue Xanax 0.25 mg twice daily. 9. DVT prophylaxis. Heparin subcu. 10. GI prophylaxis. Protonix 40 mg CODE STATUS: Full code Patient will be admitted to the hospital minimal 2 nights day. Discharge plan: Likely home tomorrow Impression and plan of care have been directed as dictated by the signing physician. Belinda Moore nurse practitioner acting as scribe for signing physician. Objective - Vital Signs Vital signs: Vital Signs Temp 98.2 F 10/10/20 08:02 Pulse 66 10/10/20 08:02 Resp 20 10/10/20 08:02 BP 103/70 10/10/20 08:02 Pulse Ox 96 10/10/20 08:02 Intake & Output 10/09/20 10/10/20 10/10/20 18:59 06:59 18:59 Intake Total 684 240 Output Total 4 2 1 Balance 680 -2 239 Weight 64.7 kg Intake: Oral 684 240 Output: Urine 3 Stool 1 2 1 Other: Voiding Method Toilet Toilet Toilet Bedside Commode Bedside Commode Bedside Commode - Labs CBC & Chem 7: 10/09/20 09:43 10/10/20 10:17 Labs: Abnormal Lab Results - Last 24 Hours (Table) 10/09/20 10/10/20 Range/Units 09:43 10:17 Sodium 133 L (137-145) mmol/L BUN 43 H (7-17) mg/dL Creatinine 1.20 H (0.52-1.04) mg/dL Glucose 156 H (74-99) mg/dL Total Protein (PEP) 5.6 L (6.2-8.2) g/dL Free Lambda LC, Quant 85.40 H (0.57-2.63) mg/dL Microbiology - Last 24 Hours (Table) 10/08/20 16:40 Acid Fast Bacilli Smear - Final Pleural Fluid Acid Fast Bacilli Culture - Preliminary 10/08/20 16:40 Gram Stain - Preliminary Pleural Fluid Body Fluid Culture - Preliminary
[2020-10-10] MEDS: dexAMETHasone 4 MG TAB PO SCH (12:08)
[2020-10-10] MEDS ORDERED: METOPROLOL TARTRATE 12.5 MG TAB PO STA (12:55)
--- NOTE | 2020-10-10 14:58 | P.PN ---
Subjective Progress Note Date: 10/10/20 Principal diagnosis: Multiple Myeloma, Respiratory Insufficiency Sitting in chair, no family at bedside. She does still show winding with talking. She was given a written education copy of her treatment plan. She started Pulse Dose Dexamethasone today Objective - Vital Signs Vital signs: Vital Signs Temp 98.2 F 10/10/20 08:02 Pulse 66 10/10/20 08:02 Resp 20 10/10/20 08:02 BP 103/70 10/10/20 08:02 Pulse Ox 96 10/10/20 08:02 Intake & Output 10/09/20 10/10/20 10/10/20 18:59 06:59 18:59 Intake Total 684 Output Total 4 2 Balance 680 -2 Weight 64.7 kg Intake: Oral 684 Output: Urine 3 Stool 1 2 Other: Voiding Method Toilet Toilet Bedside Commode Bedside Commode - Exam - Constitutional Patient was laying fairly flat comfortably, but did seem to be at least slightly short of breath while conversing General appearance: no acute distress - EENT Eyes: EOMI, PERRLA ENT: hearing grossly normal, normal oropharynx - Neck Neck: no lymphadenopathy Thyroid: bilateral: normal size - Respiratory Respiratory: right: diminished, rales - Cardiovascular Rhythm: regular Heart sounds: normal: S1, S2 - Gastrointestinal General gastrointestinal: normal bowel sounds, soft - Integumentary Integumentary: normal - Neurologic Neurologic: CNII-XII intact - Musculoskeletal Musculoskeletal: generalized weakness, strength equal bilaterally - Psychiatric Psychiatric: A&O x's 3, appropriate affect - Labs CBC & Chem 7: 10/09/20 09:43 10/10/20 10:17 Labs: Abnormal Lab Results - Last 24 Hours (Table) 10/09/20 10/09/20 10/09/20 Range/Units 09:43 09:43 09:43 RBC 5.89 H (3.80-5.40) m/uL Hgb 17.6 H (11.4-16.0) gm/dL Hct 56.7 H (34.0-46.0) % RDW 17.3 H (11.5-15.5) % Plt Count 132 L (150-450) k/uL Sodium 133 L (137-145) mmol/L BUN 39 H (7-17) mg/dL Creatinine 1.06 H (0.52-1.04) mg/dL Glucose 153 H (74-99) mg/dL Total Bilirubin 3.5 H (0.2-1.3) mg/dL Conjugated Bilirubin 0.8 H (0.0-0.3) mg/dL Delta Bilirubin 1.8 H (0.0-0.2) mg/dL AST 85 H (14-36) U/L ALT 56 H (4-34) U/L Alkaline Phosphatase 187 H (38-126) U/L Total Protein 5.7 L (6.3-8.2) g/dL Total Protein (PEP) 5.6 L (6.2-8.2) g/dL Albumin 3.2 L (3.5-5.0) g/dL Microbiology - Last 24 Hours (Table) 10/08/20 16:40 Acid Fast Bacilli Smear - Final Pleural Fluid Acid Fast Bacilli Culture - Preliminary 10/08/20 16:40 Gram Stain - Preliminary Pleural Fluid Body Fluid Culture - Preliminary Assessment and Plan (1) Dyspnea Current Visit: Yes Status: Acute Code(s): R06.00 - DYSPNEA, UNSPECIFIED SNOMED Code(s): 555001001 (2) Multiple myeloma Current Visit: Yes Status: Acute Code(s): C90.00 - MULTIPLE MYELOMA NOT HAVING ACHIEVED REMISSION SNOMED Code(s): 524569838 (3) Congestive heart failure Current Visit: No Status: Acute Code(s): I50.9 - HEART FAILURE, UNSPECIFIED SNOMED Code(s): 94874367 Plan: CTA Negative for PE Will proceed with a pulse dose steroid 40mg PO daily x4 to treat Myeloma Comments: Echocardiogram report reviewed. EKG reviewed Chest x-ray: report reviewed CT scan - abdomen: report reviewed CT scan - pelvis: report reviewed Assessment and Plan Dyspnea CTA Neg Probable component of congestive heart failure exacerbation, as well as pleural effusion due to her underlying hematologic condition. - Patient had a chest ultrasound with the site of the pleural effusion marked. - Status Post thoracentesis on 10/08/20. - Ensure flow cytometry for plasma cells as well as staining for amyloid in addition to routine studies such as cytology Current Visit: Yes Status: Acute Code(s): R06.00 - DYSPNEA, UNSPECIFIED SNOMED Code(s): 440058789 Multiple myeloma - There is concern of light chain deposit, given the appearance of the myocardium on echocardiogram - She is to start on the RVD regimen for myeloma on 10/11/20. - This will also treat any light chain deposition disease in a specific organ. - In the interim will treat pulse dose steroid today 40mg po daily x4 days, with PPI Current Visit: Yes Status: Acute Code(s): C90.00 - MULTIPLE MYELOMA NOT HAVING ACHIEVED REMISSION SNOMED Code(s): 134674062 Increased Hemoglobin: - Stop Iron Supplementation Increased LFTs: - Monitor
[2020-10-10] MEDS: ACETAMINOPHEN TAB 325 MG TAB PO PRN (16:33)
[2020-10-10] MEDS: ALPRAZolam 0.25 MG TAB PO SCH (19:44)
[2020-10-10] MEDS ORDERED: METOPROLOL TARTRATE 12.5 MG TAB PO SCH (21:00)
[2020-10-11] MEDS: PANTOPRAZOLE 40 MG TABLET PO SCH ×2 (06:34→16:44)
[2020-10-11 07:33] LABS: Calcium 9.6 mg/dL (8.4-10.2)
[2020-10-11] MEDS: dexAMETHasone 4 MG TAB PO SCH (08:09)
[2020-10-11] MEDS: SPIRONOLACTONE 25 MG TAB PO SCH ×2 (08:09→20:11)
[2020-10-11] MEDS: FUROSEMIDE 10 MG/ML 4 ML VIAL IV SCH ×3 (08:10→20:11)
[2020-10-11] MEDS: SERTRALINE 50 MG TAB PO SCH (08:10)
--- NOTE | 2020-10-11 09:39 | XR ---
EXAMINATION TYPE: XR chest 2V DATE OF EXAM: 10/11/2020 CLINICAL HISTORY: effusion. TECHNIQUE: Frontal and lateral view of the chest. COMPARISON: 10/08/2020 FINDINGS: The cardiomediastinal silhouette is enlarged. Pulmonary vasculature is normal. There is no focal air space opacity. Small right pleural effusion is decreased. No pneumothorax seen. No acute displaced osseous fracture. IMPRESSION: Small right pleural effusion, mildly decreased from 10/08/2020.
--- NOTE | 2020-10-11 13:05 | P.PN ---
Subjective Progress Note Date: 10/11/20 HISTORY OF PRESENT ILLNESS: Patient examined this morning the bedside. Patient denies chest pain or pressure. She states her shortness of breath has improved. She underwent right thoracentesis yesterday with removal of 750 mL. Echocardiogram completed reveals ejection fraction 45-50%, inferior LV wall hypokinesis and inferior septal LV wall hypokinesis. Moderate generalized pericardial effusion. Blood pressure 124/80. The patient remains on IV Lasix. 10/10/2020 Patient examined this morning. She is sitting up in the chair. She denies chest pain or pressure. She denies shortness of breath. She reports continued lower extremity edema. Telemetry reveals sinus bradycardia with a heart rate in the 50s. Patient did have a pause on telemetry this morning. Blood pressure 103/70. BUN 39. Creatinine 1.06. 10/11/2020 Patient examined this morning at the bedside. Patient denies chest pain or pressure. she denies shortness of breath. She remains on IV Lasix. Creatinine 1.05. She continues to have lower extremity edema. Patient went into second degree heart block yesterday and her metoprolol was discontinued by Dr. Sandhu PHYSICAL EXAM: VITAL SIGNS: Reviewed. GENERAL: Well-developed in no acute distress. NECK: Supple. No JVD or thyromegaly LUNGS: Respirations even and unlabored. Lungs diminished to auscultation bilaterally. HEART: Regular rate and rhythm. S1 and S2 heard. EXTREMITIES: Normal range of motion. No clubbing or cyanosis. Peripheral pulses intact. 1-2+ lower extremity edema ASSESSMENT: Moderate generalized pericardial effusion Abnormal troponins, not suggestive of acute coronary syndrome History of multiple myeloma Right pleural effusion, status post thoracentesis Hypertension Hyperlipidemia PLAN: Continue telemetry monitoring. Continue IV Lasix Continue additional cardiac medications Daily weights Accurate I&O Monitor kidney function Further recommendations pending patient's course Nurse practitioner note has been reviewed by physician. Signing provider agrees with the documented findings, assessment, and plan of care. Objective - Vital Signs Vital signs: Vital Signs Temp 97.5 F L 10/11/20 08:05 Pulse 104 H 10/11/20 08:05 Resp 18 10/11/20 08:05 BP 100/63 10/11/20 08:05 Pulse Ox 96 10/11/20 08:09 Intake & Output 10/10/20 10/11/2021 18:59 06:59 18:59 Intake Total 720 Output Total 1 2 1 Balance 719 -2 -1 Weight 64.3 kg Intake: Oral 720 Output: Stool 1 2 1 Other: Voiding Method Toilet Toilet Toilet Bedside Commode Bedside Commode Bedside Commode # Voids 3 1 # Bowel Movements 2 - Labs CBC & Chem 7: 10/09/20 09:43 10/11/20 05:47 Labs: Abnormal Lab Results - Last 24 Hours (Table) 10/11/20 Range/Units 05:47 Sodium 133 L (137-145) mmol/L Chloride 97 L (98-107) mmol/L BUN 47 H (7-17) mg/dL Creatinine 1.05 H (0.52-1.04) mg/dL Glucose 123 H (74-99) mg/dL Microbiology - Last 24 Hours (Table) 10/08/20 16:40 Anaerobic Culture - Preliminary Pleural Fluid 10/08/20 16:40 Gram Stain - Preliminary Pleural Fluid Body Fluid Culture - Preliminary
--- NOTE | 2020-10-11 13:31 | P.PN ---
Subjective Progress Note Date: 10/11/20 Principal diagnosis: Right pleural effusion, shortness of breath This patient was hospitalized for worsening shortness of breath and generalized weakness. She was found to have a right-sided pleural effusion along with some pericardial effusion. I was consulted regarding the pleural effusion was asked to provide the patient some symptomatic relief via thoracentesis. The patient has a very long and complicated history. I initially saw her back beginning of the year after she underwent an robotic-assisted laparoscopic repair of an incarcerated paraesophageal hernia and this was done on 04/19/2020. Since then, her condition has been gradually deteriorating. The patient lost about 20 pounds after hernia surgery in 04/22 unit in 07/21 she developed chest discomfort and s hortness of breath while in [place] and was admitted to the hospital. She was diagnosed with a and STEMI and congestive heart failure. She had cardiac catheterization but apparently no specific intervention was required. The patient remained short of breath despite treatment for congestive heart failure, and also complained of intermittent lower exudate swelling. She was admitted for further management, with chest x-ray and CTA showing possible pericardial effusion. Echocardiogram showed a small pericardial effusion without definite compromise, but appearance of the myocardium was highly suspicious for cardiac amyloidosis. There was a history of amyloidosis in her mother and a paternal aunt. Patient's lambda light chain levels were increased at 73.4 mg/dL. She had additional labs ordered, with prophylactic was showing no monoclonal protein. However kappa light chain was normal at 1.38, indicating significant K/L ratio abnormality, highly suspicious for a monoclonal process. The patienthad a bone marrow aspiration biopsy on 09/18/20. This revealed overt multiple myeloma with 20-30% involvement with lambda restricted monoclonal plasma cells. bone marrow was negative for amyloid, 24 hr urine showed lambda light chain of 2.02 grams per liter, and M protein of about 350 mg in 24 hours. on survey showed possible lucent areas in the calvarium, and right proximal humerus. Additional labs to check for MPD, given the high normal hemoglobin were negative. T he patient was recommended to start treatment for myeloma with the RVD regimen, which would also be an effective regimen to treat amyloidosis. She was supposed to start treatment on 10/11/20. The patient came in to the hospital this time as she was feeling quite weak and had a near syncopal episode. Having worsening shortness of breath. Ultrasound the chest was done that showed a right-sided pleural effusion. CT of the abdomen and pelvis was performed because of complains of abdominal bloating and tightness which did not reveal any specific symptoms other than possible nonspecific right-sided colitis. There was a small pericardial effusion, with ejection fraction slightly less than her previous level at 40-25%. Right-sided pleural effusion was also seen confirmed on ultrasound. Troponins were mildly elevated in the 0.2-0.3 range. There was also evidence of some right-sided pleural effusion. A thoracentesis was done and a total of 7 50 mL of pleural fluid was aspirated from the right lung. 10/09/2020, the patient is doing well. The patient has no specific complaints. She is less short of breath compared to yesterday. The thoracentesis helped quite a bit in terms of her breathing and the patient is breathing easier for today. Pleural fluid is more consistent with a transudate. The pleural fluid protein is low and LDH is also on the lower side consistent with CHF. Meanwhile, the patient is on diuretics. She is resting comfortably in bed. No other new complaints otherwise for now. \ 10/10/2020, the patient is comfortable in bed. Postthoracentesis. Ejection fraction on the echocardiogram showed 45-50%. She has still a component of moderate size pericardial effusion. No signs of any temporal. She remains on IV Lasix. No major respiratory distress at rest. No chest pain. Her electrolytes are stable. BUN is at 39 with a creatinine of 1 and sodium level is 133. White cell count at 8.4 with a hemoglobin of 17.6. She is currently on Decadron and Lasix or milligrams IV every 12 hours patient is also on Aldactone 25 mg twice a day. The CT angiogram showed small right-sided pleural effusion. Lungs are essentially clear. No pneumothorax. There is cardiomegaly. On 10/11/2020 patient seen in follow-up on selective care unit, she states her breathing has significantly improved since the right-sided thoracentesis. He remains on Lasix, currently on Lasix 40 mg 3 times daily, and her weight is down by 0.4 kg in the last 24 hours, no accurate intake and output is available, patient still has residual edema involving pretibial and pedal areas, but overall she is feeling better, breathing much easier. Pleural fluid analysis showed transudate of fluid, pleural fluid cultures are negative thus far, cytology is pending. Today's chest x-ray shows a small right-sided pleural effusion, decreased from 10/08/2020. Today's labs have been reviewed, sodium is 133, potassium is 5.0, chloride is 97, B1 is 47, creatinine is 1.05. Objective - Vital Signs Vital signs: Vital Signs Temp 97.5 F L 10/11/20 08:05 Pulse 104 H 10/11/20 08:05 Resp 18 10/11/20 08:05 BP 100/63 10/11/20 08:05 Pulse Ox 96 10/11/20 08:09 Intake & Output 10/10/20 10/11/20 10/11/20 18:59 06:59 18:59 Intake Total 720 Output Total 1 2 1 Balance 719 -2 -1 Weight 64.3 kg Intake: Oral 720 Output: Stool 1 2 1 Other: Voiding Method Toilet Toilet Toilet Bedside Commode Bedside Commode Bedside Commode # Voids 3 1 # Bowel Movements 2 - Exam GENERAL EXAM: Alert, very pleasant, 70-year-old white female, on 4 L of oxygen a pulse ox of 96% comfortable in no apparent distress. HEAD: Normocephalic/atraumatic. EYES: Normal reaction of pupils, equal size. Conjunctiva pink, sclera white. NOSE: Clear with pink turbinates. THROAT: No erythema or exudates. NECK: No masses, no JVD, no thyroid enlargement, no adenopathy. CHEST: No chest wall deformity. Symmetrical expansion. LUNGS: Equal air entry with bibasilar crackles CVS: Regular rate and rhythm, normal S1 and S2, no gallops, no murmurs, no rubs ABDOMEN: Soft, nontender. No hepatosplenomegaly, normal bowel sounds, no guarding or rigidity. EXTREMITIES: No clubbing, 1+ lower extremity edema, no cyanosis, 2+ pulses and upper and lower extremities. MUSCULOSKELETAL: Muscle strength and tone normal. SPINE: No scoliosis or deformity SKIN: No rashes CENTRAL NERVOUS SYSTEM: Alert and oriented -3. No focal deficits, tone is normal in all 4 extremities. PSYCHIATRIC: Alert and oriented -3. Appropriate affect. Intact judgment and insight. - Labs CBC & Chem 7: 10/09/20 09:43 10/11/20 05:47 Labs: Abnormal Lab Results - Last 24 Hours (Table) 10/11/20 Range/Units 05:47 Sodium 133 L (137-145) mmol/L Chloride 97 L (98-107) mmol/L BUN 47 H (7-17) mg/dL Creatinine 1.05 H (0.52-1.04) mg/dL Glucose 123 H (74-99) mg/dL Microbiology - Last 24 Hours (Table) 10/08/20 16:40 Anaerobic Culture - Preliminary Pleural Fluid 10/08/20 16:40 Gram Stain - Preliminary Pleural Fluid Body Fluid Culture - Preliminary Assessment and Plan Plan: 1 right-sided pleural effusion, post thoracentesis with removal of 700 cc of pleural fluid. Analysis showed transudative fluid, likely related to acute exacerbation of CHF with a mildly impaired EF of 45-50%. Clinically the patient improved and felt better after the thoracentesis monitor the fluid was a changes and and the patient is currently on Decadron and diuretics. 2 moderate sized pericardial effusion without any signs of cardiac tamponade 3 Multiple Myeloma with a Possibility of Light Chain deposition within the Myocardium and Restrictive Cardiomyopathy. The Patient is currently on Revlimid 4 hypertension 5 hyperlipidemia 6 nonocclusive coronary artery disease 7 hiatal hernia status post robotic-assisted laparoscopic repair of an incarcerated paraesophageal hernia back in general 2020 9 mild intermittent bronchial asthma 10 abnormal CAT scan of the abdomen showing some and colitis versus colonic mass. The patient has wall thickening at the level of the cecum and the right hemicolon, could be nonspecific versus malignancy 11 anasarca 12 abnormal troponin, consider troponin leak versus non-STEMI Plan: Today's chest x-ray has been reviewed Continue diuretics Patient is maintaining negative fluid balance Accurate intake and output, daily weight Weaning FiO2 Daily labs We will continue to follow I performed a history & physical examination of the patient and discussed their management with my nurse practitioner, Shirin Maddox. I reviewed the nurse practitioner's note and agree with the documented findings and plan of care. Lung sounds are positive for diminished breath sounds. The findings and the impression was discussed with the patient. I attest to the documentation by the nurse practitioner. Time with Patient: Less than 30
--- NOTE | 2020-10-11 15:15 | P.PN ---
Subjective Progress Note Date: 10/11/20 Principal diagnosis: Multiple Myeloma, Respiratory Insufficiency Seen this am, no sob, tachycardia continues and cardiology is following. She tolerated dexamethasone well Objective - Vital Signs Vital signs: Vital Signs Temp 97.5 F L 10/11/20 12:00 Pulse 104 H 10/11/20 14:00 Resp 18 10/11/20 14:00 BP 108/73 10/11/20 12:00 Pulse Ox 96 10/11/20 12:00 Intake & Output 10/10/20 10/11/20 10/11/20 18:59 06:59 18:59 Intake Total 720 240 Output Total 1 2 402 Balance 719 -2 -162 Weight 64.3 kg Intake: Oral 720 240 Output: Urine 400 Stool 1 2 2 Other: Voiding Method Toilet Toilet Toilet Bedside Commode Bedside Commode Bedside Commode # Voids 3 1 # Bowel Movements 2 - Exam - Constitutional Patient was laying fairly flat comfortably, but did seem to be at least slightly short of breath while conversing General appearance: no acute distress - EENT Eyes: EOMI, PERRLA ENT: hearing grossly normal, normal oropharynx - Neck Neck: no lymphadenopathy Thyroid: bilateral: normal size - Respiratory Respiratory: right: diminished, rales - Cardiovascular Rhythm: Tachycardia - Gastrointestinal General gastrointestinal: normal bowel sounds, soft - Integumentary Integumentary: normal - Neurologic Neurologic: CNII-XII intact - Musculoskeletal Musculoskeletal: generalized weakness, strength equal bilaterally - Psychiatric Psychiatric: A&O x's 3, appropriate affect - Labs CBC & Chem 7: 10/12/20 07:24 10/12/20 07:24 Labs: Abnormal Lab Results - Last 24 Hours (Table) 10/11/20 Range/Units 05:47 Sodium 133 L (137-145) mmol/L Chloride 97 L (98-107) mmol/L BUN 47 H (7-17) mg/dL Creatinine 1.05 H (0.52-1.04) mg/dL Glucose 123 H (74-99) mg/dL Microbiology - Last 24 Hours (Table) 10/08/20 16:40 Anaerobic Culture - Preliminary Pleural Fluid 10/08/20 16:40 Gram Stain - Preliminary Pleural Fluid Body Fluid Culture - Preliminary Assessment and Plan (1) Dyspnea Current Visit: Yes Status: Acute Code(s): R06.00 - DYSPNEA, UNSPECIFIED SNOMED Code(s): 318275197 (2) Multiple myeloma Current Visit: Yes Status: Acute Code(s): C90.00 - MULTIPLE MYELOMA NOT HAVING ACHIEVED REMISSION SNOMED Code(s): 186075484 (3) Congestive heart failure Current Visit: No Status: Acute Code(s): I50.9 - HEART FAILURE, UNSPECIFIED SNOMED Code(s): 73503665 Plan: CTA Negative for PE Will proceed with a pulse dose steroid 40mg PO daily x4 to treat Myeloma Comments: Echocardiogram report reviewed. EKG reviewed Chest x-ray: report reviewed CT scan - abdomen: report reviewed CT scan - pelvis: report reviewed Assessment and Plan Dyspnea CTA Neg Probable component of congestive heart failure exacerbation, as well as pleural effusion due to her underlying hematologic condition. - Patient had a chest ultrasound with the site of the pleural effusion marked. - Status Post thoracentesis on 10/08/20. Awaiting Flow report to be scanned in, fluid negative for cytology. Current Visit: Yes Status: Acute Code(s): R06.00 - DYSPNEA, UNSPECIFIED SNOMED Code(s): 419545625 Multiple myeloma - There is concern of light chain deposit, given the appearance of the myocardium on echocardiogram - She is to start on the RVD regimen for myeloma on 10/11/20. - This will also treat any light chain deposition disease in a specific organ. - Status post treatment pulse dose steroid today 40mg po daily x4 days, with PPI Current Visit: Yes Status: Acute Code(s): C90.00 - MULTIPLE MYELOMA NOT HAVING ACHIEVED REMISSION SNOMED Code(s): 561105342 Increased Hemoglobin: - Stop Iron Supplementation Increased LFTs: Worsening likely medication related - Monitor Atrial Tachycardia: - Cardiology is following
[2020-10-11 15:28] LABS: Albumin 3.35 g/dL (3.80-4.90); Gamma Globulin 0.73 g/dL (0.70-1.50)
[2020-10-11 15:47] LABS: Anisocytosis Slight; Basophils % (A) 1 %; Eosinophils % (A) 0 %; HCT 53.5 % (34.0-46.0); HGB 16.3 gm/dL (11.4-16.0); Hypochromasia Moderate; Lymphocytes # (A) 0.7 k/uL (1.0-4.8); Lymphocytes % (A) 11 %; MCH 29.8 pg (25.0-35.0); MCHC 30.4 g/dL (31.0-37.0); MCV 97.9 fL (80.0-100.0); Macrocytosis Slight; Mean Platelet Volume 12.4; Monocytes # (A) 0.2 k/uL (0-1.0); Monocytes % (A) 3 %; Neutrophils # (A) 5.1 k/uL (1.3-7.7); Neutrophils % (A) 85 %; Platelet Count 111 k/uL (150-450); RBC 5.46 m/uL (3.80-5.40); RDW 17.1 % (11.5-15.5); WBC 6.1 k/uL (3.8-10.6)
--- NOTE | 2020-10-11 15:58 | P.PN ---
Subjective Progress Note Date: 10/11/20 This 70-year-old pleasant female patient of Dr. Hand, with underlying history of paraesophageal hiatal hernia and GERD, chronic bronchial asthma, mild intermittent hypertension, hyperlipidemia, and recently diagnosed to have amyloidosis and multiple diet myeloma, through confirmedbone marrow biopsy, 2 weeks ago. He she is supposed to start treatment with Dr. Madrid this 10/11/2020. She also sees Dr. mercer, for what was suspected to be pericardial effusion. She was recently hospitalized, 08/25/2020, for shortness of breath, sees Dr. Soria cardiology and was diagnosed to have an STEMI, in, 07/17/2020, in the clinic in [facility]. She underwent a heart cath, the second time and was found to have nonobstructive CAD, diastolic CHF, EF was documented to be normal that time, and was discharged with Cozaar and Lopressor Lasix and potassium. She was admitted from our facility Jul, 2020, with chronic dyspnea secondary to restrictive cardiomyopathy, pericardial effusion, and pleural effusion, possible to get amyloidosis at that time. She now comes in to the emergency room, which shortness of breath, edema, difficulty of breathing, patient also has anasarca, generalized weakness, and fatigue, patient felt lightheaded and dizzy, patient did not pass out, has diff iculty in ambulating and has difficulty in getting up when she was lowered down to the floor upon her fall, she has no appetite, denies any new weight loss, however she is gaining more weight with edema, her pulse ox at home was around 90% on room air, in the emergency room, she has no leukocytosis, with WBCs 10, hemoglobin is 18.8, creatinine of 0.9, BUN of 36, sodium 136, platelet count is 164 troponin of 0.263, alkaline phosphatase elevated to 19, AST ALT, elevated, total bili elevated 4.4. Consults were made with cardiology, and oncology for the elevated troponin, and amyloidosis, multiple myeloma echocardiogram is requested for pleural effusion,, patient has seen Dr. hills in the past, we will obtain his service, and a thoracic ultrasound 10/10: Patient is found resting comfortably in bed without any acute distress. Patient states that she is breathing better compared to yesterday. Chest CTA yesterday shows no acute PE, cardiomegaly with pericardial effusion and contrast reflux headache veins. Anasarca with small volume abdominal ascites suggested of third spacing. Small to moderate right pleural effusion. She has post thoracentesis. Ejection fraction on echocardiogram showed 45-50%. she remains on IV Lasix. Continues to have 2+ peripheral lower extremity edema. 10/11: Patient is seen today on the cardiac stepdown unit. States that she is feeling much better from yesterday. She is known to have increased lower extremity edema for which Lasix increased. Breathing status is improved today. Patient is followed by oncology, cardiology and pulmonary medicine. Repeat blood work reveals WBC 6.1, hemoglobin 16.3. Platelet count not reported. Sodium 133, potassium 5, chloride 97, CO2 29, BUN 47 and creatinine 1.05. Blood sugar 123. Repeat chest x-ray reveals small right pleural effusion and mildly decreased from 10/08. Cytology is pending. Review Of Systems: Constitutional: No fever, no chills, no night sweats. No weight change. No weakness, fatigue or lethargy. No daytime sleepiness. EENT: No headache. No blurred vision or double vision, no loss of vision. No loss of Hearing, no ringing in the ears, no dizziness. No nasal drainage or congestion. No epistaxis. No sore throat. Lungs: Reports shortness of breath improved, cough, no sputum production. No wheezing. Cardiovascular: No chest pain, no lower extremity edema. No palpitations. No paroxysmal nocturnal dyspnea. No orthopnea. No lightheadedness or dizziness. No syncopal episodes. Abdominal: no abdominal discomfort. No nausea, vomiting. no diarrhea. No constipation. No bloody or tarry stools. no loss of appetite. Genitourinary: No dysuria, increased frequency, urgency. No urinary retention. Musculoskeletal: No myalgias. Reports muscle weakness bilateral lower extremities, no gait dysfunction, no frequent falls. No back pain. No neck pain. Integumentary: No wounds, no lesions. No rash or pruritus. No unusual bruising. No change in hair or nails. Neurologic: No aphasia. No facial droop. No change in mentation. No head injury. No headache. No paralysis. No paresthesia. Psychiatric: No depression. No anxiety. No mood swings. Endocrine: No abnormal blood sugars. No weight change. No excessive sweating or thirst. Physical Exam: General Appearance: Alert, cooperative, no distress, this is a 70-year-old pleasant female appears stated age. Neck HEENT: Supple, no lymphadenopathy, no thyroid enlargement, no carotid bruits. Lungs: Clear to auscultation without crackles or wheezes, diminished no rhonchi, no deformity. Chest Wall: Chest wall normal expansion with deep inspiration no tenderness and no deformity was found on exam, no costochondral pain or discomfort. Heart: Regular rate and rhythm, S1, S2 normal, no murmur, rub or gallop. Back: Symmetric, no curvature, ROM normal, no CVA tenderness. Abdomen: Soft, non-tender, no rebound or rigidity, no hepatosplenomegaly. Extremities: Extremities normal, atraumatic, no cyanosis, 2+ bilateral lower extremity edema Pulses: 2+ and symmetric. Skin: Skin color, texture, tugor normal, no rashes or lesions. Neurologic: Alert oriented x3 cranial nerves II through XII intact, no motor deficit, no abnormal balance or gait Assessment/plan: 1. Acute on chronic dyspnea secondary with acute hypoxemic respiratory failure, currently multifactorial to include amyloidosis, with cardiomyopathy, moderate right pleural effusion, and recent diagnosis of pericardial effusion,, consult appreciated by pulmonology, cardiology, and oncology. Patient underwent a thoracentesis with removal of 750 ML's of tarry colored fluid without difficulty. Fluid will be sent for studies. IV Lasix increased to Lasix 40 mg IV 3 times daily, pre-albumin less than 5 2. Elevated troponins which is chronic,. Patient had recent heart catheterization in [place] was reported as negative for obstructive disease 07/2020. Cardiology consult and repeat troponins. Echocardiogram conclusion: EF between 45 and 50%, moderate concentric left ventricular atrophy, moderate generalized pericardial effusion present, right ventricle is mildly enlarged, ileus mildly dilated, mild pulmonary hypertension. Her ventricular systolic pressure measured by Doppler is 39.15 mmHg. 3. Amyloidosis, suspect cardiac cardiac cardiomyopathy, no treatment initiated yet, await consultation from Dr. Madrid, 4. Multiple myeloma, to start treatment this Sunday, October 11, with Dr. Madrid, unknown protocol most likely would include dexamethasone and Velcade, Revlimid 5. transaminitis with elevated total bili / jaundice, no signs of hemolysis at this time, suspect obstructive in nature, check for total bili fractionation, and CAT scan of the liver gallbladder, , most likely secondary to amyloid as well, 3. Hyperlipidemia. Continue Lipitor 20 mg daily. 4. Hypertension. Continu Lopressor 25 mg twice daily. 5. Hiatal hernia status post robotic-assisted laparoscopic repair of incarcerated paraesophageal hernia in April 2020, stable. 6. Mild intermittent asthma, stable. 7. Gastroesophageal reflux disease and GI prophylaxis. Continue omeprazole 20 g twice daily. 8. Generalized anxiety disorder. Continue Xanax 0.25 mg twice daily. 9. DVT prophylaxis. Heparin subcu. 10. GI prophylaxis. Protonix 40 mg CODE STATUS: Full code Patient will be admitted to the hospital minimal 2 nights day. Discharge plan: Home Impression and plan of care have been directed as dictated by the signing physician. Lisa Davis nurse practitioner acting as scribe for signing physician. Objective - Vital Signs Vital signs: Vital Signs Temp 98.2 F 10/10/20 08:02 Pulse 59 L 10/11/20 04:00 Resp 18 10/11/20 04:00 BP 99/57 10/11/20 04:00 Pulse Ox 96 10/11/20 08:09 Intake & Output 10/10/20 10/11/20 10/11/20 18:59 06:59 18:59 Intake Total 720 Output Total 1 2 Balance 719 -2 Weight 64.3 kg Intake: Oral 720 Output: Stool 1 2 Other: Voiding Method Toilet Toilet Bedside Commode Bedside Commode # Voids 3 1 # Bowel Movements 2 - Labs CBC & Chem 7: 10/11/20 05:47 10/11/20 05:47 Labs: Abnormal Lab Results - Last 24 Hours (Table) 10/11/20 Range/Units 05:47 Sodium 133 L (137-145) mmol/L Chloride 97 L (98-107) mmol/L BUN 47 H (7-17) mg/dL Creatinine 1.05 H (0.52-1.04) mg/dL Glucose 123 H (74-99) mg/dL Microbiology - Last 24 Hours (Table) 10/08/20 16:40 Anaerobic Culture - Preliminary Pleural Fluid 10/08/20 16:40 Gram Stain - Preliminary Pleural Fluid Body Fluid Culture - Preliminary
[2020-10-11 16:35] LABS: Large Platelets Present
[2020-10-11] MEDS: ACETAMINOPHEN TAB 325 MG TAB PO PRN (19:15)
[2020-10-11] MEDS: ALPRAZolam 0.25 MG TAB PO SCH (20:11)
[2020-10-12] MEDS: PANTOPRAZOLE 40 MG TABLET PO SCH ×2 (06:16→17:51)
[2020-10-12 07:41] LABS: Anisocytosis Slight; Basophils % (A) 0 %; Eosinophils % (A) 0 %; HCT 50.9 % (34.0-46.0); HGB 16.8 gm/dL (11.4-16.0); Lymphocytes # (A) 0.7 k/uL (1.0-4.8); Lymphocytes % (A) 5 %; MCH 31.1 pg (25.0-35.0); MCV 94.3 fL (80.0-100.0); Mean Platelet Volume 8.9; Monocytes # (A) 1.1 k/uL (0-1.0); Monocytes % (A) 8 %; Neutrophils # (A) 11.3 k/uL (1.3-7.7); Neutrophils % (A) 85 %; Platelet Count 136 k/uL (150-450); RDW 16.8 % (11.5-15.5); WBC 13.3 k/uL (3.8-10.6)
[2020-10-12 07:52] LABS: Albumin 3.4 g/dL (3.5-5.0); Calcium 9.7 mg/dL (8.4-10.2); Total Bilirubin 2.9 mg/dL (0.2-1.3); Total Protein 5.8 g/dL (6.3-8.2)
[2020-10-12] MEDS: FUROSEMIDE 10 MG/ML 4 ML VIAL IV SCH ×3 (09:21→21:52)
[2020-10-12] MEDS: SPIRONOLACTONE 25 MG TAB PO SCH ×2 (09:22→21:52)
[2020-10-12] MEDS: SERTRALINE 50 MG TAB PO SCH (09:22)
[2020-10-12] MEDS: dexAMETHasone 4 MG TAB PO SCH (09:22)
[2020-10-12] MEDS ORDERED: METOPROLOL TARTRATE 12.5 MG TAB PO STA (11:06)
--- NOTE | 2020-10-12 11:10 | P.PN ---
Subjective Progress Note Date: 10/12/20 HISTORY OF PRESENT ILLNESS: Patient examined this morning the bedside. Patient denies chest pain or pressure. She states her shortness of breath has improved. She underwent right thoracentesis yesterday with removal of 750 mL. Echocardiogram completed reveals ejection fraction 45-50%, inferior LV wall hypokinesis and inferior septal LV wall hypokinesis. Moderate generalized pericardial effusion. Blood pressure 124/80. The patient remains on IV Lasix. 10/10/2020 Patient examined this morning. She is sitting up in the chair. She denies chest pain or pressure. She denies shortness of breath. She reports continued lower extremity edema. Telemetry reveals sinus bradycardia with a heart rate in the 50s. Patient did have a pause on telemetry this morning. Blood pressure 103/70. BUN 39. Creatinine 1.06. 10/11/2020 Patient examined this morning at the bedside. Patient denies chest pain or pressure. she denies shortness of breath. She remains on IV Lasix. Creatinine 1.05. She continues to have lower extremity edema. Patient went into second degree heart block yesterday and her metoprolol was discontinued by Dr. Sandhu 10/12/2020 Patient examined this morning at the bedside. Patient denies chest pain or pressure. Denies shortness of breath. She continues to have lower extremity edema. She is on IV lasix. Patient is tachycardic with a heart rate in the 110- 120s. EKG completed and reviewed with Dr. Kim revealing atrial tachycardia. PHYSICAL EXAM: VITAL SIGNS: Reviewed. GENERAL: Well-developed in no acute distress. NECK: Supple. No JVD or thyromegaly LUNGS: Respirations even and unlabored. Lungs diminished to auscultation bilaterally. HEART: Tachycardic. Regular rate and rhythm. S1 and S2 heard. EXTREMITIES: Normal range of motion. No clubbing or cyanosis. Peripheral pulses intact. 1-2+ lower extremity edema ASSESSMENT: Moderate generalized pericardial effusion Abnormal troponins, not suggestive of acute coronary syndrome History of multiple myeloma Right pleural effusion, status post thoracentesis Hypertension Hyperlipidemia PLAN: Continue telemetry monitoring. Add metoprolol 12.5mg PO daily. Continue IV Lasix Continue additional cardiac medications Daily weights Accurate I&O Monitor kidney function Further recommendations pending patient's course Nurse practitioner note has been reviewed by physician. Signing provider agrees with the documented findings, assessment, and plan of care. Objective - Vital Signs Vital signs: Vital Signs Temp 97.4 F L 10/12/20 08:00 Pulse 102 H 10/12/20 08:00 Resp 18 10/12/20 08:00 BP 114/83 10/12/20 08:00 Pulse Ox 98 10/12/20 08:00 Intake & Output 10/11/20 10/12/20 10/12/20 18:59 06:59 18:59 Intake Total 960 740 Output Total 402 1 Balance 558 -1 740 Weight 64.9 kg Intake: Oral 960 740 Output: Urine 400 Stool 2 1 Other: Voiding Method Toilet Toilet Toilet Bedside Commode Bedside Commode Bedside Commode # Voids 2 - Labs CBC & Chem 7: 10/12/20 07:24 10/12/20 07:24 Labs: Abnormal Lab Results - Last 24 Hours (Table) 10/09/20 10/11/20 10/12/20 Range/Units 09:43 05:47 07:24 WBC 13.3 H (3.8-10.6) k/uL RBC 5.46 H (3.80-5.40) m/uL Hgb 16.3 H 16.8 H (11.4-16.0) gm/dL Hct 53.5 H 50.9 H (34.0-46.0) % MCHC 30.4 L (31.0-37.0) g/dL RDW 17.1 H 16.8 H (11.5-15.5) % Plt Count 111 L 136 L (150-450) k/uL Neutrophils # 11.3 H (1.3-7.7) k/uL Lymphocytes # 0.7 L 0.7 L (1.0-4.8) k/uL Monocytes # 1.1 H (0-1.0) k/uL Sodium (137-145) mmol/L Chloride (98-107) mmol/L Carbon Dioxide (22-30) mmol/L BUN (7-17) mg/dL Glucose (74-99) mg/dL Total Bilirubin (0.2-1.3) mg/dL AST (14-36) U/L ALT (4-34) U/L Alkaline Phosphatase (38-126) U/L Total Protein (6.3-8.2) g/dL Albumin (3.5-5.0) g/dL Albumin (PEP) 3.35 L (3.80-4.90) g/dL Beta Globulins 0.53 L (0.60-1.30) g/dL 10/12/20 Range/Units 07:24 WBC (3.8-10.6) k/uL RBC (3.80-5.40) m/uL Hgb (11.4-16.0) gm/dL Hct (34.0-46.0) % MCHC (31.0-37.0) g/dL RDW (11.5-15.5) % Plt Count (150-450) k/uL Neutrophils # (1.3-7.7) k/uL Lymphocytes # (1.0-4.8) k/uL Monocytes # (0-1.0) k/uL Sodium 132 L (137-145) mmol/L Chloride 94 L (98-107) mmol/L Carbon Dioxide 31 H (22-30) mmol/L BUN 54 H (7-17) mg/dL Glucose 125 H (74-99) mg/dL Total Bilirubin 2.9 H (0.2-1.3) mg/dL AST 144 H (14-36) U/L ALT 117 H (4-34) U/L Alkaline Phosphatase 188 H (38-126) U/L Total Protein 5.8 L (6.3-8.2) g/dL Albumin 3.4 L (3.5-5.0) g/dL Albumin (PEP) (3.80-4.90) g/dL Beta Globulins (0.60-1.30) g/dL Microbiology - Last 24 Hours (Table) 10/08/20 16:40 Gram Stain - Preliminary Pleural Fluid Body Fluid Culture - Preliminary
[2020-10-12 13:51] VITALS: BMI 28.9
[2020-10-12] MEDS: ACETAMINOPHEN TAB 325 MG TAB PO PRN (14:32)
[2020-10-12] MEDS: ALPRAZolam 0.25 MG TAB PO SCH (21:52)
[2020-10-12 22:02] LABS: Glucose,Whole Blood 121 mg/dL (75-99)
--- NOTE | 2020-10-13 01:01 | CT ---
EXAMINATION TYPE: CT brain wo con DATE OF EXAM: 10/13/2020 COMPARISON: None HISTORY: fall CT DLP: 1070.4 mGycm Automated exposure control for dose reduction was used. There is cerebral cortical atrophy. There is patchy hypodensity in the periventricular white matter. There is no mass effect nor midline shift. There is no sign of intracranial hemorrhage. The calvarium is intact. IMPRESSION: Cerebral atrophy and chronic small vessel ischemia. No acute intracranial abnormality.
--- NOTE | 2020-10-13 05:50 | P.CONS ---
History of Present Illness - Chief Complaint Medical debility - History of Present Illness I had the opportunity to see patient for inpatient weak consultation with regard to medical debility. Patient admitted to [facility] October 18 with shortness of breath and generalized weakness. History of recent paraesophageal herniorrhaphy repair in STEMI. Seen by Dr. Madrid for known multiple myeloma and therapeutic radiation. Seen by Dr. Lewis. Chest x-rays and ultrasounds follow for pulmonary effusions. Chest CTA negative. Venous Doppler negative. Angiogram CT with nonspecific thickening: Walk possibly consistent with colitis. Started therapies. PT reports supervision for bed mobility and gait 140 feet 2 with minimal assist using hand rails. Occupational therapy reports supervision for upper dressing toileting and transfers and minimal assistance for lower dressing and bathing. Previous functional history as elicited from patient: 70-year-old right-handed white female who is lives in one floor home alone. Retired. Describes independent with own cooking, laundry, driving, standing shower and gait without device. PCP Dr. Liu. Denies tobacco or alcohol. Review of Systems Review of systems: ENT: Denies sneezes or discharge. Eyes: Denies discharge or photophobia. Cardiac: Denies chest pain or palpitation. Pulmonary: Denies cough or shortness of breath. Breast: Denies discharge or lumps. Gastrointestinal: Denies nausea, emesis, constipation, diarrhea. Genitourinary: Denies discharge or frequency. Musculoskeletal: Denies muscle or bone aches. Neurologic: Mild weakness. Endocrine: Denies shakes or sweats. Oncology: Denies cancers. Dermatologic: Denies rash, itching, pruritus. ALLERGY/immunology: Denies sneezes, rashes. Past Medical History Past Medical History: Asthma, Chest Pain / Angina, GERD/Reflux, Hyperlipidemia, Hypertension, Myocardial Infarction ([place]) Additional Past Medical History / Comment(s): Hiatal Hernia, hx 2 ulcers in stomach; Bursitis both knees. Hx pancreatitis, SOB w/exertion due to hernia Last Myocardial Infarction Date:: 07/2020 History of Any Multi-Drug Resistant Organisms: None Reported Past Surgical History: Back Surgery, Heart Catheterization, Heart Catheterization With Stent, Hysterectomy, Orthopedic Surgery, Tonsillectomy Additional Past Surgical History / Comment(s): Back surgery with hardware, L carpal tunnel, L foot surgery, Past Anesthesia/Blood Transfusion Reactions: Previous Problems w/ Anesthesia, Motion Sickness, Postoperative Nausea & Vomiting (PONV) Additional Past Anesthesia/Blood Transfusion Reaction / Comm: was told stopped breathing during EGD Date of Last Stent Placement:: unknown Past Psychological History: Depression Smoking Status: Never smoker Past Alcohol Use History: Occasional Past Drug Use History: None Reported - Past Family History Mother Family Medical History: No Reported History, Asthma, Diabetes Mellitus Father Family Medical History: No Reported History Additional Family Medical History / Comment(s): Father lived to be 90yrs. Sister(s) Family Medical History: No Reported History Daughter(s) Family Medical History: No Reported History Medications and Allergies Home Medications Medication Instructions Recorded Confirmed Type ALPRAZolam [Xanax] 0.25 mg PO HS 11/01/18 10/07/20 History Atorvastatin [Lipitor] 20 mg PO DAILY 04/14/20 10/07/20 History Ferrous Sulfate [Iron (65 MG 325 mg PO DAILY 08/24/20 10/07/20 History Elemental)] Metoprolol Tartrate [Lopressor] 25 mg PO BID 08/24/20 10/07/20 History Omeprazole 20 mg PO BID 08/24/20 10/07/20 History Lenalidomide [Revlimid] 25 mg PO DIRECTED 10/07/20 10/07/20 History Multivitamins, Thera [Multivitamin 1 tab PO DAILY 10/07/20 10/07/20 History (formulary)] Sertraline [Zoloft] 50 mg PO DAILY 10/07/20 10/07/20 History Spironolactone [Aldactone] 25 mg PO BID 10/07/20 10/07/20 History dexAMETHasone [Dexamethasone] 20 mg PO DIRECTED 10/07/20 10/07/20 History Allergies Allergy/AdvReac Type Severity Reaction Status Date / Time No Known Allergies Allergy Verified 10/07/20 19:46 Physical Exam Vitals: Vital Signs Temp Pulse Resp BP BP Pulse Ox 10/12/20 23:50 97.5 F L 66 21 100/68 95 10/12/20 19:45 97.6 F 73 22 100/66 98 10/12/20 18:34 56 L 97 10/12/20 16:00 97.4 F L 124 H 18 106/72 95 10/12/20 14:00 102 H 18 10/12/20 12:00 97.5 F L 102 H 18 121/77 96 10/12/20 08:00 97.4 F L 102 H 18 114/83 98 Intake and Output 10/12/20 10/12/20 10/13/20 14:59 22:59 06:59 Intake Total 1240 722 Output Total 651 750 Balance 589 -28 Intake: Oral 1240 722 Output: Urine 650 750 Stool 1 Other: Voiding Method Toilet Toilet Bedside Commode # Voids 2 1 Weight 64.9 kg 66 kg Skin: Mildly atrophic, intact. General: Medium build and comfortable appearance. Head: Normocephalic, atraumatic. Eyes: Symmetric. Pupils equal round. Ears: Symmetric. Hearing within normal limits. Mouth: Clear. Neck: Supple. Carotid without bruit. Cardiac: Regular rate and rhythm. Lungs: Clear anteriorly and posteriorly. Abdomen: Soft active nontender. Extremities: Normal tone. Neurological: Mental status: Alert, cooperative, pleasant. Cranial nerves: Symmetric facial tone and trapezius. Motor: Normal strength and isolation all 4 limbs. Sensation: Intact throughout. DTRs: Symmetric and equal throughout. Mobility: Sits without assistance or verbal cueing or loss of balance. Results CBC & Chem 7: 10/12/20 07:24 10/12/20 07:24 Labs: Abnormal Lab Results - Last 24 Hours (Table) 10/12/20 10/12/20 10/12/20 Range/Units 07:24 07:24 22:00 WBC 13.3 H (3.8-10.6) k/uL Hgb 16.8 H (11.4-16.0) gm/dL Hct 50.9 H (34.0-46.0) % RDW 16.8 H (11.5-15.5) % Plt Count 136 L (150-450) k/uL Neutrophils # 11.3 H (1.3-7.7) k/uL Lymphocytes # 0.7 L (1.0-4.8) k/uL Monocytes # 1.1 H (0-1.0) k/uL Sodium 132 L (137-145) mmol/L Chloride 94 L (98-107) mmol/L Carbon Dioxide 31 H (22-30) mmol/L BUN 54 H (7-17) mg/dL Glucose 125 H (74-99) mg/dL POC Glucose (mg/dL) 121 H (75-99) mg/dL Total Bilirubin 2.9 H (0.2-1.3) mg/dL AST 144 H (14-36) U/L ALT 117 H (4-34) U/L Alkaline Phosphatase 188 H (38-126) U/L Total Protein 5.8 L (6.3-8.2) g/dL Albumin 3.4 L (3.5-5.0) g/dL Microbiology - Last 24 Hours (Table) 10/08/20 16:40 Anaerobic Culture - Final Pleural Fluid 10/08/20 16:40 Gram Stain - Final Pleural Fluid Body Fluid Culture - Final Assessment and Plan (1) Cardiomyopathy Current Visit: Yes Status: Acute Code(s): I42.9 - CARDIOMYOPATHY, UNSPECIFIE D SNOMED Code(s): 24824513 (2) Multiple myeloma Current Visit: Yes Status: Acute Code(s): C90.00 - MULTIPLE MYELOMA NOT HAVING ACHIEVED REMISSION SNOMED Code(s): 617930707 (3) Hiatal hernia with GERD and esophagitis Current Visit: No Status: Acute Code(s): K44.9 - DIAPHRAGMATIC HERNIA WITHOUT OBSTRUCTION OR GANGRENE; K21.00 - GASTRO-ESOPHAGEAL REFLUX DIS WITH ESOPHAGITIS, WITHOUT BLEED SNOMED Code(s): 788770991 Plan: Impression: 1. Medical debility. 2. Multiple myeloma. 3. Esophageal hernia. 4. History of recent STEMI. Comments and plan: At this time PT and OT are ongoing. PT reports good functional mobility, perhaps too good for inpatient rehab per insurance criteria. We'll follow therapy notes today. At this time, patient's preference is also return to home with support of sister rather than further hospitalization.
[2020-10-13] MEDS: PANTOPRAZOLE 40 MG TABLET PO SCH ×2 (07:06→17:06)
[2020-10-13 07:40] LABS: Anisocytosis Slight; Basophils % (A) 0 %; Eosinophils % (A) 0 %; HCT 54.1 % (34.0-46.0); HGB 17.6 gm/dL (11.4-16.0); Lymphocytes # (A) 0.7 k/uL (1.0-4.8); Lymphocytes % (A) 6 %; MCH 30.8 pg (25.0-35.0); MCHC 32.6 g/dL (31.0-37.0); MCV 94.6 fL (80.0-100.0); Monocytes # (A) 0.5 k/uL (0-1.0); Monocytes % (A) 5 %; Neutrophils # (A) 9.8 k/uL (1.3-7.7); Neutrophils % (A) 88 %; Platelet Count 144 k/uL (150-450); RBC 5.72 m/uL (3.80-5.40); RDW 16.9 % (11.5-15.5); WBC 11.1 k/uL (3.8-10.6)
[2020-10-13 07:59] LABS: Albumin 3.4 g/dL (3.5-5.0); Magnesium 1.9 mg/dL (1.6-2.3); Potassium 5.3 mmol/L (3.5-5.1); Total Bilirubin 3.8 mg/dL (0.2-1.3); Total Protein 5.7 g/dL (6.3-8.2)
[2020-10-13] MEDS: SPIRONOLACTONE 25 MG TAB PO SCH ×2 (08:02→21:45)
[2020-10-13] MEDS: dexAMETHasone 4 MG TAB PO SCH (08:02)
[2020-10-13] MEDS: SERTRALINE 50 MG TAB PO SCH (08:02)
[2020-10-13] MEDS: METOPROLOL TARTRATE 12.5 MG TAB PO SCH (08:11)
[2020-10-13] MEDS: FUROSEMIDE 10 MG/ML 4 ML VIAL IV SCH ×2 (10:11→21:45)
[2020-10-13] MEDS: ACETAMINOPHEN TAB 325 MG TAB PO PRN (10:27)
--- NOTE | 2020-10-13 11:52 | P.PN ---
Subjective Progress Note Date: 10/13/20 HISTORY OF PRESENT ILLNESS: Patient examined this morning the bedside. Patient denies chest pain or pressure. She states her shortness of breath has improved. She underwent right thoracentesis yesterday with removal of 750 mL. Echocardiogram completed reveals ejection fraction 45-50%, inferior LV wall hypokinesis and inferior septal LV wall hypokinesis. Moderate generalized pericardial effusion. Blood pressure 124/80. The patient remains on IV Lasix. 10/10/2020 Patient examined this morning. She is sitting up in the chair. She denies chest pain or pressure. She denies shortness of breath. She reports continued lower extremity edema. Telemetry reveals sinus bradycardia with a heart rate in the 50s. Patient did have a pause on telemetry this morning. Blood pressure 103/70. BUN 39. Creatinine 1.06. 10/11/2020 Patient examined this morning at the bedside. Patient denies chest pain or pressure. she denies shortness of breath. She remains on IV Lasix. Creatinine 1.05. She continues to have lower extremity edema. Patient went into second degree heart block yesterday and her metoprolol was discontinued by Dr. Sandhu 10/12/2020 Patient examined this morning at the bedside. Patient denies chest pain or pressure. Denies shortness of breath. She continues to have lower extremity edema. She is on IV lasix. Patient is tachycardic with a heart rate in the 110- 120s. EKG completed and reviewed with Dr. Kim revealing atrial tachycardia. 10/13/2020 Patient examined this point bedside. Patient denies chest pain or pressure. She denies shortness of breath. She remains on nasal cannula with oxygen saturation greater than 92%. Heart rate is better controlled today after initiating low-dose beta josé yesterday. PHYSICAL EXAM: VITAL SIGNS: Reviewed. GENERAL: Well-developed in no acute distress. NECK: Supple. No JVD or thyromegaly LUNGS: Respirations even and unlabored. Lungs diminished to auscultation bilaterally. HEART: Regular rate and rhythm. S1 and S2 heard. EXTREMITIES: Normal range of motion. No clubbing or cyanosis. Peripheral pulses intact. 1-2+ lower extremity edema ASSESSMENT: Moderate generalized pericardial effusion Abnormal troponins, not suggestive of acute coronary syndrome History of multiple myeloma Right pleural effusion, status post thoracentesis Hypertension Hyperlipidemia PLAN: Continue telemetry monitoring Continue current dose of metoprolol Continue IV Lasix. Dosing per internal medicine Continue additional cardiac medications Daily weights Accurate I&O Monitor kidney function No further inpatient recommend patient from a cardiac standpoint Nurse practitioner note has been reviewed by physician. Signing provider agrees with the documented findings, assessment, and plan of care. Objective - Vital Signs Vital signs: Vital Signs Temp 98.3 F 10/13/20 08:00 Pulse 80 10/13/20 10:08 Resp 20 10/13/20 10:08 BP 96/64 10/13/20 10:08 Pulse Ox 96 10/13/20 10:08 Intake & Output 10/12/20 10/13/20 10/13/20 18:59 06:59 18:59 Intake Total 1961 100 Output Total 1101 300 375 Balance 861 -300 -275 Weight 64.9 kg 66 kg Intake: Oral 1961 100 Output: Urine 1100 300 375 Stool 1 Other: Voiding Method Toilet Toilet Toilet Bedside Commode # Voids 2 1 1 - Labs CBC & Chem 7: 10/13/20 07:14 10/13/20 07:14 Labs: Abnormal Lab Results - Last 24 Hours (Table) 10/12/20 10/13/20 10/13/20 Range/Units 22:00 07:14 07:14 WBC 11.1 H (3.8-10.6) k/uL RBC 5.72 H (3.80-5.40) m/uL Hgb 17.6 H (11.4-16.0) gm/dL Hct 54.1 H (34.0-46.0) % RDW 16.9 H (11.5-15.5) % Plt Count 144 L (150-450) k/uL Neutrophils # 9.8 H (1.3-7.7) k/uL Lymphocytes # 0.7 L (1.0-4.8) k/uL Sodium 130 L (137-145) mmol/L Potassium 5.3 H (3.5-5.1) mmol/L Chloride 92 L (98-107) mmol/L Carbon Dioxide 34 H (22-30) mmol/L BUN 64 H (7-17) mg/dL Glucose 126 H (74-99) mg/dL POC Glucose (mg/dL) 121 H (75-99) mg/dL Total Bilirubin 3.8 H (0.2-1.3) mg/dL AST 119 H (14-36) U/L ALT 125 H (4-34) U/L Alkaline Phosphatase 187 H (38-126) U/L Total Protein 5.7 L (6.3-8.2) g/dL Albumin 3.4 L (3.5-5.0) g/dL Microbiology - Last 24 Hours (Table) 10/08/20 16:40 Anaerobic Culture - Final Pleural Fluid 10/08/20 16:40 Gram Stain - Final Pleural Fluid Body Fluid Culture - Final
--- NOTE | 2020-10-13 12:22 | P.PN ---
Subjective Progress Note Date: 10/12/20 This 70-year-old pleasant female patient of Dr. Hand, with underlying history of paraesophageal hiatal hernia and GERD, chronic bronchial asthma, mild intermittent hypertension, hyperlipidemia, and recently diagnosed to have amyloidosis and multiple diet myeloma, through confirmedbone marrow biopsy, 2 weeks ago. He she is supposed to start treatment with Dr. Madrid this 10/11/2020. She also sees Dr. mercer, for what was suspected to be pericardial effusion. She was recently hospitalized, 08/25/2020, for shortness of breath, sees Dr. Soria cardiology and was diagnosed to have an STEMI, in, 07/17/2020, in the clinic in [facility]. She underwent a heart cath, the second time and was found to have nonobstructive CAD, diastolic CHF, EF was documented to be normal that time, and was discharged with Cozaar and Lopressor Lasix and potassium. She was admitted from our facility Jul, 2020, with chronic dyspnea secondary to restrictive cardiomyopathy, pericardial effusion, and pleural effusion, possible to get amyloidosis at that time. She now comes in to the emergency room, which shortness of breath, edema, difficulty of breathing, patient also has anasarca, generalized weakness, and fatigue, patient felt lightheaded and dizzy, patient did not pass out, has diff iculty in ambulating and has difficulty in getting up when she was lowered down to the floor upon her fall, she has no appetite, denies any new weight loss, however she is gaining more weight with edema, her pulse ox at home was around 90% on room air, in the emergency room, she has no leukocytosis, with WBCs 10, hemoglobin is 18.8, creatinine of 0.9, BUN of 36, sodium 136, platelet count is 164 troponin of 0.263, alkaline phosphatase elevated to 19, AST ALT, elevated, total bili elevated 4.4. Consults were made with cardiology, and oncology for the elevated troponin, and amyloidosis, multiple myeloma echocardiogram is requested for pleural effusion,, patient has seen Dr. hills in the past, we will obtain his service, and a thoracic ultrasound 10/10: Patient is found resting comfortably in bed without any acute distress. Patient states that she is breathing better compared to yesterday. Chest CTA yesterday shows no acute PE, cardiomegaly with pericardial effusion and contrast reflux headache veins. Anasarca with small volume abdominal ascites suggested of third spacing. Small to moderate right pleural effusion. She has post thoracentesis. Ejection fraction on echocardiogram showed 45-50%. she remains on IV Lasix. Continues to have 2+ peripheral lower extremity edema. 10/11: Patient is seen today on the cardiac stepdown unit. States that she is feeling much better from yesterday. She is known to have increased lower extremity edema for which Lasix increased. Breathing status is improved today. Patient is followed by oncology, cardiology and pulmonary medicine. Repeat blood work reveals WBC 6.1, hemoglobin 16.3. Platelet count not reported. Sodium 133, potassium 5, chloride 97, CO2 29, BUN 47 and creatinine 1.05. Blood sugar 123. Repeat chest x-ray reveals small right pleural effusion and mildly decreased from 10/08. Cytology is pending. 10/12: Patient is followed by consultants pulmonary medicine, oncology and cardiology. She denies having any chest pain or shortness of breath. She is on IV Lasix. Heart rate is running in the 110 to 120s with atrial tachycardia. Cardiology has added metoprolol 12.5 mg. Patient is worked with physical therapy and she had difficulty with stairs. We will add a consult for Dr. Juan Pablo gordon. At this time patient will consider [facility] but this is complicated because of patient requires chemotherapy and this cannot be postponed, patient will not be able to obtain subacute rehab. Repeat blood work reveals WBC 13.3, hemoglobin 16.8, platelet count 136. Sodium 132, potassium 5.0, chloride 94, CO2 31, BUN 54 and creatinine 1.02. Total bilirubin 2.9, AST 144, ALT 117, alkaline phosphatase 188. Oncology has ordered dexamethasone 40 mg daily for 4 doses Review Of Systems: Constitutional: No fever, no chills, no night sweats. No weight change. No weakness, fatigue or lethargy. No daytime sleepiness. EENT: No headache. No blurred vision or double vision, no loss of vision. No loss of Hearing, no ringing in the ears, no dizziness. No nasal drainage or congestion. No epistaxis. No sore throat. Lungs: Reports shortness of breath improved, cough, no sputum production. No wheezing. Cardiovascular: No chest pain, no lower extremity edema. No palpitations. No paroxysmal nocturnal dyspnea. No orthopnea. No lightheadedness or dizziness. No syncopal episodes. Abdominal: no abdominal discomfort. No nausea, vomiting. no diarrhea. No constipation. No bloody or tarry stools. no loss of appetite. Genitourinary: No dysuria, increased frequency, urgency. No urinary retention. Musculoskeletal: No myalgias. Reports muscle weakness bilateral lower extremities, no gait dysfunction, no frequent falls. No back pain. No neck pain. Integumentary: No wounds, no lesions. No rash or pruritus. No unusual bruising. No change in hair or nails. Neurologic: No aphasia. No facial droop. No change in mentation. No head injury. No headache. No paralysis. No paresthesia. Psychiatric: No depression. No anxiety. No mood swings. Endocrine: No abnormal blood sugars. No weight change. No excessive sweating or thirst. Physical Exam: General Appearance: Alert, cooperative, no distress, this is a 70-year-old pleasant female appears stated age. Neck HEENT: Supple, no lymphadenopathy, no thyroid enlargement, no carotid bruits. Lungs: Clear to auscultation without crackles or wheezes, diminished no rhonchi, no deformity. Chest Wall: Chest wall normal expansion with deep inspiration no tenderness and no deformity was found on exam, no costochondral pain or discomfort. Heart: Regular rate and rhythm, S1, S2 normal, no murmur, rub or gallop. Back: Symmetric, no curvature, ROM normal, no CVA tenderness. Abdomen: Soft, non-tender, no rebound or rigidity, no hepatosplenomegaly. Extremities: Extremities normal, atraumatic, no cyanosis, 2+ bilateral lower extremity edema Pulses: 2+ and symmetric. Skin: Skin color, texture, tugor normal, no rashes or lesions. Neurologic: Alert oriented x3 cranial nerves II through XII intact, no motor deficit, no abnormal balance or gait Assessment/plan: 1. Acute on chronic dyspnea secondary with acute hypoxemic respiratory failure, currently multifactorial to include amyloidosis, with cardiomyopathy, moderate right pleural effusion, and recent diagnosis of pericardial effusion,, consult appreciated by pulmonology, cardiology, and oncology. Patient underwent a thoracentesis with removal of 750 ML's of tarry colored fluid without dif ficulty. Fluid will be sent for studies. Continue Lasix 40 mg IV 3 times daily, pre-albumin less than 5 2. Elevated troponins which is chronic,. Patient had recent heart catheterization in [place] was reported as negative for obstructive disease 07/2020. Cardiology consult and repeat troponins. Echocardiogram conclusion: EF between 45 and 50%, moderate concentric left ventricular atrophy, moderate generalized pericardial effusion present, right ventricle is mildly enlarged, ileus mildly dilated, mild pulmonary hypertension. Her ventricular systolic pressure measured by Doppler is 39.15 mmHg. 3. Amyloidosis, suspect cardiac cardiac cardiomyopathy, no treatment initiated yet, await consultation from Dr. Madrid, 4. Multiple myeloma, to start treatment this October 11, with Dr. Madrid, unknown protocol most likely would include dexamethasone and Velcade, Revlimid 5. transaminitis with elevated total bili / jaundice, no signs of hemolysis at this time, suspect obstructive in nature, check for total bili fractionation, and CAT scan of the liver gallbladder, , most likely secondary to amyloid as well, 3. Hyperlipidemia. Continue Lipitor 20 mg daily. 4. Hypertension. Continu Lopressor 25 mg twice daily. 5. Hiatal hernia status post robotic-assisted laparoscopic repair of incarcerated paraesophageal hernia in April 2020, stable. 6. Mild intermittent asthma, stable. 7. Gastroesophageal reflux disease and GI prophylaxis. Continue omeprazole 20 g twice daily. 8. Generalized anxiety disorder. Continue Xanax 0.25 mg twice daily. 9. DVT prophylaxis. Heparin subcu. 10. GI prophylaxis. Protonix 40 mg CODE STATUS: Full code Discharge plan: Home Impression and plan of care have been directed as dictated by the signing physician. Lisa Davis nurse practitioner acting as scribe for signing physician. Objective - Vital Signs Vital signs: Vital Signs Temp 97.4 F L 10/12/20 08:00 Pulse 102 H 10/12/20 08:00 Resp 18 10/12/20 08:00 BP 114/83 10/12/20 08:00 Pulse Ox 98 10/12/20 08:00 Intake & Output 10/11/20 10/12/20 10/12/20 18:59 06:59 18:59 Intake Total 960 740 Output Total 402 1 Balance 558 -1 740 Weight 64.9 kg Intake: Oral 960 740 Output: Urine 400 Stool 2 1 Other: Voiding Method Toilet Toilet Toilet Bedside Commode Bedside Commode Bedside Commode # Voids 2 - Labs CBC & Chem 7: 10/13/20 07:14 10/13/20 07:14 Labs: Abnormal Lab Results - Last 24 Hours (Table) 10/09/20 10/11/20 10/12/20 Range/Units 09:43 05:47 07:24 WBC 13.3 H (3.8-10.6) k/uL RBC 5.46 H (3.80-5.40) m/uL Hgb 16.3 H 16.8 H (11.4-16.0) gm/dL Hct 53.5 H 50.9 H (34.0-46.0) % MCHC 30.4 L (31.0-37.0) g/dL RDW 17.1 H 16.8 H (11.5-15.5) % Plt Count 111 L 136 L (150-450) k/uL Neutrophils # 11.3 H (1.3-7.7) k/uL Lymphocytes # 0.7 L 0.7 L (1.0-4.8) k/uL Monocytes # 1.1 H (0-1.0) k/uL Sodium (137-145) mmol/L Chloride (98-107) mmol/L Carbon Dioxide (22-30) mmol/L BUN (7-17) mg/dL Glucose (74-99) mg/dL Total Bilirubin (0.2-1.3) mg/dL AST (14-36) U/L ALT (4-34) U/L Alkaline Phosphatase (38-126) U/L Total Protein (6.3-8.2) g/dL Albumin (3.5-5.0) g/dL Albumin (PEP) 3.35 L (3.80-4.90) g/dL Beta Globulins 0.53 L (0.60-1.30) g/dL 10/12/20 Range/Units 07:24 WBC (3.8-10.6) k/uL RBC (3.80-5.40) m/uL Hgb (11.4-16.0) gm/dL Hct (34.0-46.0) % MCHC (31.0-37.0) g/dL RDW (11.5-15.5) % Plt Count (150-450) k/uL Neutrophils # (1.3-7.7) k/uL Lymphocytes # (1.0-4.8) k/uL Monocytes # (0-1.0) k/uL Sodium 132 L (137-145) mmol/L Chloride 94 L (98-107) mmol/L Carbon Dioxide 31 H (22-30) mmol/L BUN 54 H (7-17) mg/dL Glucose 125 H (74-99) mg/dL Total Bilirubin 2.9 H (0.2-1.3) mg/dL AST 144 H (14-36) U/L ALT 117 H (4-34) U/L Alkaline Phosphatase 188 H (38-126) U/L Total Protein 5.8 L (6.3-8.2) g/dL Albumin 3.4 L (3.5-5.0) g/dL Albumin (PEP) (3.80-4.90) g/dL Beta Globulins (0.60-1.30) g/dL Microbiology - Last 24 Hours (Table) 10/08/20 16:40 Gram Stain - Preliminary Pleural Fluid Body Fluid Culture - Preliminary
--- NOTE | 2020-10-13 12:26 | P.PN ---
Subjective Progress Note Date: 10/13/20 This 70-year-old pleasant female patient of Dr. Hand, with underlying history of paraesophageal hiatal hernia and GERD, chronic bronchial asthma, mild intermittent hypertension, hyperlipidemia, and recently diagnosed to have amyloidosis and multiple diet myeloma, through confirmedbone marrow biopsy, 2 weeks ago. He she is supposed to start treatment with Dr. Madrid this 10/11/2020. She also sees Dr. mercer, for what was suspected to be pericardial effusion. She was recently hospitalized, 08/25/2020, for shortness of breath, sees Dr. Soria cardiology and was diagnosed to have an STEMI, in, 07/17/2020, in the clinic in [facility]. She underwent a heart cath, the second time and was found to have nonobstructive CAD, diastolic CHF, EF was documented to be normal that time, and was discharged with Cozaar and Lopressor Lasix and potassium. She was admitted from our facility Jul, 2020, with chronic dyspnea secondary to restrictive cardiomyopathy, pericardial effusion, and pleural effusion, possible to get amyloidosis at that time. She now comes in to the emergency room, which shortness of breath, edema, difficulty of breathing, patient also has anasarca, generalized weakness, and fatigue, patient felt lightheaded and dizzy, patient did not pass out, has diff iculty in ambulating and has difficulty in getting up when she was lowered down to the floor upon her fall, she has no appetite, denies any new weight loss, however she is gaining more weight with edema, her pulse ox at home was around 90% on room air, in the emergency room, she has no leukocytosis, with WBCs 10, hemoglobin is 18.8, creatinine of 0.9, BUN of 36, sodium 136, platelet count is 164 troponin of 0.263, alkaline phosphatase elevated to 19, AST ALT, elevated, total bili elevated 4.4. Consults were made with cardiology, and oncology for the elevated troponin, and amyloidosis, multiple myeloma echocardiogram is requested for pleural effusion,, patient has seen Dr. hills in the past, we will obtain his service, and a thoracic ultrasound 10/10: Patient is found resting comfortably in bed without any acute distress. Patient states that she is breathing better compared to yesterday. Chest CTA yesterday shows no acute PE, cardiomegaly with pericardial effusion and contrast reflux headache veins. Anasarca with small volume abdominal ascites suggested of third spacing. Small to moderate right pleural effusion. She has post thoracentesis. Ejection fraction on echocardiogram showed 45-50%. she remains on IV Lasix. Continues to have 2+ peripheral lower extremity edema. 10/11: Patient is seen today on the cardiac stepdown unit. States that she is feeling much better from yesterday. She is known to have increased lower extremity edema for which Lasix increased. Breathing status is improved today. Patient is followed by oncology, cardiology and pulmonary medicine. Repeat blood work reveals WBC 6.1, hemoglobin 16.3. Platelet count not reported. Sodium 133, potassium 5, chloride 97, CO2 29, BUN 47 and creatinine 1.05. Blood sugar 123. Repeat chest x-ray reveals small right pleural effusion and mildly decreased from 10/08. Cytology is pending. 10/12: Patient is followed by consultants pulmonary medicine, oncology and cardiology. She denies having any chest pain or shortness of breath. She is on IV Lasix. Heart rate is running in the 110 to 120s with atrial tachycardia. Cardiology has added metoprolol 12.5 mg. Patient is worked with physical therapy and she had difficulty with stairs. We will add a consult for Dr. Juan Pablo gordon. At this time patient will consider [facility] but this is complicated because of patient requires chemotherapy and this cannot be postponed, patient will not be able to obtain subacute rehab. Repeat blood work reveals WBC 13.3, hemoglobin 16.8, platelet count 136. Sodium 132, potassium 5.0, chloride 94, CO2 31, BUN 54 and creatinine 1.02. Total bilirubin 2.9, AST 144, ALT 117, alkaline phosphatase 188. Oncology has ordered dexamethasone 40 mg daily for 4 doses. 10/13: Patient has completed course of dexamethasone. Further plan to be determined by oncology. Orthostatics were checked and were negative and patient's nurse will recheck orthostatics this morning. Patient will be placed on Lasix 40 mg IV twice daily. Chest x-ray ordered., Pulse ox 97% on 5 L nasal cannula. Repeat blood work reveals WBC 11.1, hemoglobin 17.6, platelet count 144. Sodium 130, potassium 5.3, chloride 92, CO2 34, BUN 64 creatinine 1.04. Total bilirubin 3.8, AST 119, ALT 125, alkaline phosphatase 187. business change manager is working on discharge planning depending on plan from oncology. Patient may be ready for discharge by tomorrow. Review Of Systems: Constitutional: No fever, no chills, no night sweats. No weight change. No weakness, fatigue or lethargy. No daytime sleepiness. EENT: No headache. No blurred vision or double vision, no loss of vision. No loss of Hearing, no ringing in the ears, no dizziness. No nasal drainage or congestion. No epistaxis. No sore throat. Lungs: Reports shortness of breath improved, cough, no sputum production. No wheezing. Cardiovascular: No chest pain, no lower extremity edema. No palpitations. No paroxysmal nocturnal dyspnea. No orthopnea. No lightheadedness or dizziness. No syncopal episodes. Abdominal: no abdominal discomfort. No nausea, vomiting. no diarrhea. No constipation. No bloody or tarry stools. no loss of appetite. Genitourinary: No dysuria, increased frequency, urgency. No urinary retention. Musculoskeletal: No myalgias. Reports muscle weakness bilateral lower extremities, no gait dysfunction, no frequent falls. No back pain. No neck pain. Integumentary: No wounds, no lesions. No rash or pruritus. No unusual bruising. No change in hair or nails. Neurologic: No aphasia. No facial droop. No change in mentation. No head injury. No headache. No paralysis. No paresthesia. Psychiatric: No depression. No anxiety. No mood swings. Endocrine: No abnormal blood sugars. No weight change. No excessive sweating or thirst. Physical Exam: General Appearance: Alert, cooperative, no distress, this is a 70-year-old pleasant female appears stated age. Neck HEENT: Supple, no lymphadenopathy, no thyroid enlargement, no carotid bruits. Lungs: Clear to auscultation without crackles or wheezes, diminished no rhonchi, no deformity. Chest Wall: Chest wall normal expansion with deep inspiration no tenderness and no deformity was found on exam, no costochondral pain or discomfort. Heart: Regular rate and rhythm, S1, S2 normal, no murmur, rub or gallop. Back: Symmetric, no curvature, ROM normal, no CVA tenderness. Abdomen: Soft, non-tender, no rebound or rigidity, no hepatosplenomegaly. Extremities: Extremities normal, atraumatic, no cyanosis, 2+ bilateral lower extremity edema Pulses: 2+ and symmetric. Skin: Skin color, texture, tugor normal, no rashes or lesions. Neurologic: Alert oriented x3 cranial nerves II through XII intact, no motor deficit, no abnormal balance or gait Assessment/plan: 1. Acute on chronic dyspnea secondary with acute hypoxemic respiratory failure, currently multifactorial to include amyloidosis, with cardiomyopathy, moderate right pleural effusion, and recent diagnosis of pericardial effusion,, consult appreciated by pulmonology, cardiology, and oncology. Patient underwent a thoracentesis with removal of 750 ML's of tarry colored fluid without difficulty. Fluid will be sent for studies. Continue Lasix 40 mg IV 3 times daily, pre-albumin less than 5 2. Elevated troponins which is chronic,. Patient had recent heart catheterization in [place] was reported as negative for obstructive disease 07/2020. Cardiology consult and repeat troponins. Echocardiogram conclusion: EF between 45 and 50%, moderate concentric left ventricular atrophy, moderate generalized pericardial effusion present, right ventricle is mildly enlarged, ileus mildly dilated, mild pulmonary hypertension. Her ventricular systolic pressure measured by Doppler is 39.15 mmHg. 3. Amyloidosis, suspect cardiac cardiac cardiomyopathy, no treatment initiated yet, await consultation from Dr. Madrid, 4. Multiple myeloma. Patient completed course of dexamethasone per oncology. 5. Transaminitis with elevated total bili / jaundice, no signs of hemolysis at this time, suspect obstructive in nature, check for total bili fractionation, and CAT scan of the liver gallbladder, , most likely secondary to amyloid as well, 3. Hyperlipidemia. Continue Lipitor 20 mg daily. 4. Hypertension. Continu Lopressor 25 mg twice daily. 5. Hiatal hernia status post robotic-assisted laparoscopic repair of incarcer ated paraesophageal hernia in April 2020, stable. 6. Mild intermittent asthma, stable. 7. Gastroesophageal reflux disease and GI prophylaxis. Continue omeprazole 20 g twice daily. 8. Generalized anxiety disorder. Continue Xanax 0.25 mg twice daily. 9. DVT prophylaxis. Heparin subcu. 10. GI prophylaxis. Protonix 40 mg CODE STATUS: Full code Discharge plan: Subacute rehab or home with home care Impression and plan of care have been directed as dictated by the signing physician. Lisa Davis nurse practitioner acting as scribe for signing physician. Objective - Vital Signs Vital signs: Vital Signs Temp 98.3 F 07/14/21 08:00 Pulse 65 10/13/20 08:00 Resp 19 10/13/20 08:00 BP 101/70 10/13/20 08:00 Pulse Ox 97 10/13/20 08:00 Intake & Output 10/12/20 10/13/20 10/13/20 18:59 06:59 18:59 Intake Total 1961 Output Total 1101 300 275 Balance 861 -300 -275 Weight 64.9 kg 66 kg Intake: Oral 1961 Output: Urine 1100 300 275 Stool 1 Other: Voiding Method Toilet Toilet Toilet Bedside Commode # Voids 2 1 - Labs CBC & Chem 7: 10/13/20 07:14 10/13/20 07:14 Labs: Abnormal Lab Results - Last 24 Hours (Table) 10/12/20 10/13/20 10/13/20 Range/Units 22:00 07:14 07:14 WBC 11.1 H (3.8-10.6) k/uL RBC 5.72 H (3.80-5.40) m/uL Hgb 17.6 H (11.4-16.0) gm/dL Hct 54.1 H (34.0-46.0) % RDW 16.9 H (11.5-15.5) % Plt Count 144 L (150-450) k/uL Neutrophils # 9.8 H (1.3-7.7) k/uL Lymphocytes # 0.7 L (1.0-4.8) k/uL Sodium 130 L (137-145) mmol/L Potassium 5.3 H (3.5-5.1) mmol/L Chloride 92 L (98-107) mmol/L Carbon Dioxide 34 H (22-30) mmol/L BUN 64 H (7-17) mg/dL Glucose 126 H (74-99) mg/dL POC Glucose (mg/dL) 121 H (75-99) mg/dL Total Bilirubin 3.8 H (0.2-1.3) mg/dL AST 119 H (14-36) U/L ALT 125 H (4-34) U/L Alkaline Phosphatase 187 H (38-126) U/L Total Protein 5.7 L (6.3-8.2) g/dL Albumin 3.4 L (3.5-5.0) g/dL Microbiology - Last 24 Hours (Table) 10/08/20 16:40 Anaerobic Culture - Final Pleural Fluid 10/08/20 16:40 Gram Stain - Final Pleural Fluid Body Fluid Culture - Final
[2020-10-13] MEDS: ONDANSETRON 4 MG/2 ML VIAL IVP PRN (12:34)
--- NOTE | 2020-10-13 16:55 | XR ---
EXAMINATION TYPE: XR chest 2V DATE OF EXAM: 10/13/2020 COMPARISON: 10/11/2020 INDICATION: CHF TECHNIQUE: Frontal and lateral views of the chest are obtained. FINDINGS: The heart size is enlarged. The pulmonary vasculature is upper limits for normal. The lungs are clear. IMPRESSION: 1. Cardiomegaly. 2. There is some mild prominence of the pulmonary vascular markings. Consider approaching volume over load.
--- NOTE | 2020-10-13 17:40 | CT ---
EXAMINATION TYPE: CT brain wo con DATE OF EXAM: 10/13/2020 COMPARISON: 10/13/2020 INDICATION: Altered mental status. DLP: 1066.4 mGycm, Automated exposure control for dose reduction was used. CONTRAST: None CT of the brain is performed utilizing 3 mm thick sections through the posterior fossa and 3 mm thick sections through the remaining calvarium. Study is performed within 24 hours of arrival to the hosp [facility]. No abnormal hyperdensity is present to suggest an acute intracranial hemorrhage. No mass lesion is evident. No acute infarcts are evident. Periventricular white matter hypodensity is present, likely on the bas is of chronic white matter ischemic changes. Ventricles and sulci are appropriate for the patient age. Paranasal sinuses and mastoid air cells within the [id number] are clear. IMPRESSIONS: 1. Mild periventricular white matter ischemic-type changes.
--- NOTE | 2020-10-13 19:10 | P.PN ---
Subjective Progress Note Date: 10/13/20 Principal diagnosis: Multiple Myeloma, Respiratory Insufficiency Patient unfortunetly fell last night, witnessed by nursing. Did hit head and immediate CT was negative for acute bleed, however today her confusion is worsening, she complains of headache, daughter at bedside and increased shortness of breath. Repeat CT of the head (to assess delayed bleed), Chest xray to assess for recurrent pleural effusion. LFTs increased, further assess with focused study. Re-review of medications. Check ammonia with increased confusion as could be related to metabolic encephalopathy. Objective - Vital Signs Vital signs: Vital Signs Temp 97.6 F 10/13/20 16:00 Pulse 65 10/13/20 16:00 Resp 19 10/13/20 16:00 BP 104/70 10/13/20 16:00 Pulse Ox 96 10/13/20 16:00 Intake & Output 10/13/20 10/13/20 10/14/20 06:59 18:59 06:59 Intake Total 280 Output Total 300 375 Balance -300 -95 Weight 66 kg Intake: Oral 280 Output: Urine 300 375 Other: Voiding Method Toilet Toilet # Voids 1 1 - Exam - Constitutional Patient was laying fairly flat comfortably, but did seem to be at least slightly short of breath while conversing General appearance: no acute distress - EENT Eyes: EOMI, PERRLA ENT: hearing grossly normal, normal oropharynx - Neck Neck: no lymphadenopathy Thyroid: bilateral: normal size - Respiratory Respiratory: right: diminished, rales, increased effort noted - Cardiovascular Rhythm: Tachycardia - Gastrointestinal General gastrointestinal: normal bowel sounds, soft - Integumentary Integumentary: normal - Neurologic Neurologic: CNII-XII intact - Musculoskeletal Musculoskeletal: generalized weakness, strength equal bilaterally - Psychiatric Psychiatric: A&O x's 1, COnfusion - Labs CBC & Chem 7: 10/13/20 07:14 10/13/20 07:14 Labs: Abnormal Lab Results - Last 24 Hours (Table) 10/12/20 10/13/20 10/13/20 Range/Units 22:00 07:14 07:14 WBC 11.1 H (3.8-10.6) k/uL RBC 5.72 H (3.80-5.40) m/uL Hgb 17.6 H (11.4-16.0) gm/dL Hct 54.1 H (34.0-46.0) % RDW 16.9 H (11.5-15.5) % Plt Count 144 L (150-450) k/uL Neutrophils # 9.8 H (1.3-7.7) k/uL Lymphocytes # 0.7 L (1.0-4.8) k/uL Sodium 130 L (137-145) mmol/L Potassium 5.3 H (3.5-5.1) mmol/L Chloride 92 L (98-107) mmol/L Carbon Dioxide 34 H (22-30) mmol/L BUN 64 H (7-17) mg/dL Glucose 126 H (74-99) mg/dL POC Glucose (mg/dL) 121 H (75-99) mg/dL Total Bilirubin 3.8 H (0.2-1.3) mg/dL AST 119 H (14-36) U/L ALT 125 H (4-34) U/L Alkaline Phosphatase 187 H (38-126) U/L Total Protein 5.7 L (6.3-8.2) g/dL Albumin 3.4 L (3.5-5.0) g/dL Microbiology - Last 24 Hours (Table) 10/08/20 16:40 Anaerobic Culture - Final Pleural Fluid 10/08/20 16:40 Gram Stain - Final Pleural Fluid Body Fluid Culture - Final Assessment and Plan (1) Dyspnea Current Visit: Yes Status: Acute Code(s): R06.00 - DYSPNEA, UNSPECIFIED SNOMED Code(s): 169468003 (2) Multiple myeloma Current Visit: Yes Status: Acute Code(s): C90.00 - MULTIPLE MYELOMA NOT HAVING ACHIEVED REMISSION SNOMED Code(s): 312080870 (3) Congestive heart failure Current Visit: No Status: Acute Code(s): I50.9 - HEART FAILURE, UNSPECIFIED SNOMED Code(s): 17511919 Plan: CTA Negative for PE Will proceed with a pulse dose steroid 40mg PO daily x4 to treat Myeloma Comments: Echocardiogram report reviewed. EKG reviewed Chest x-ray: report reviewed CT scan - abdomen: report reviewed CT scan - pelvis: report reviewed Assessment and Plan Dyspnea CTA Neg Probable component of congestive heart failure exacerbation, as well as pleural effusion due to her underlying hematologic condition. - Patient had a chest ultrasound with the site of the pleural effusion marked. - Status Post thoracentesis on 10/08/20. Awaiting Flow report to be scanned in, fluid negative for cytology. Current Visit: Yes Status: Acute Code(s): R06.00 - DYSPNEA, UNSPECIFIED SNOMED Code(s): 479545318 Multiple myeloma - There is concern of light chain deposit, given the appearance of the myocardium on echocardiogram - She is to start on the RVD regimen for myeloma on 10/11/20. - This will also treat any light chain deposition disease in a specific organ. - Status post treatment pulse dose steroid today 40mg po daily x4 days, with PPI Current Visit: Yes Status: Acute Code(s): C90.00 - MULTIPLE MYELOMA NOT HAVING ACHIEVED REMISSION SNOMED Code(s): 617719998 Increased Hemoglobin: - Stop Iron Supplementation Increased LFTs: Worsening likely medication related - Monitor Atrial Tachycardia: - Cardiology is following Patient unfortunetly fell last night, witnessed by nursing. Did hit head and immediate CT was negative for acute bleed, however today her confusion is worsening, she complains of headache, daughter at bedside and increased shortness of breath. Repeat CT of the head (to assess delayed bleed), Chest xray to assess for recurrent pleural effusion. LFTs increased, further assess with focused study. Re-review of medications. Check ammonia with increased confusion as could be related to metabolic encephalopathy.
--- NOTE | 2020-10-13 21:33 | US ---
EXAMINATION TYPE: US liver DATE OF EXAM: 10/13/2020 COMPARISON: CT, US CLINICAL HISTORY: increasing LFTs. Increasing LFTs per order. EXAM MEASUREMENTS: Liver Length: 11.3 cm Gallbladder Wall: 0.45 cm CBD: 0.37 cm Right Kidney: 9.5 x 5.3 x 4.3 cm Pancreas: Slightly limited visibility of tail. Liver: Appears to be coarse in echotexture. Fluid seen midline adjacent to the left lobe of the tabatha er: 2.0 x 3.4 x 0.5 cm. Gallbladder: Multiple folds seen. Wall appears to be thickened at 0.45 cm. Normal less than 0.3 cm. Fluid seen adjacent to the gallbladder 3.3 x 3.6 x 0.9 cm. Evidence for sonographic Edwards's sign: No CBD: Portions seen appear to be wnl. Right Kidney: Hyperechoic focus seen within the lower pole: 0.3 x 0.2 x 0.3 cm. Small nonshadowing n onobstructing renal stone may be present. Fluid seen in the RUQ: 6.3 x 1.8 x 4.3 cm. IMPRESSION: 1. Mild ascites. 2. Thickened gallbladder wall at 0.45 cm. Some pericholecystic fluid is present. Correlate for cholec ystitis. 3. Possible nonobstructing inferior right renal pole renal stone
[2020-10-13] MEDS: ALPRAZolam 0.25 MG TAB PO SCH (21:45)
[2020-10-14 00:31] LABS: Amorphous Sediment,Urine Occasional /hpf; Appearance,Urine Cloudy (Clear); Bacteria,Urine Many /hpf; Bilirubin,Urine Negative (Negative); Blood,Urine Negative (Negative); Color,Urine Yellow; Glucose,Urine (UA) Negative (Negative); Hyaline Casts,Urine 49 /lpf (0-2); Ketones,Urine Negative (Negative); Leukocyte Esterase,Urine Moderate (Negative); Mucus,Urine Rare /hpf; Nitrite,Urine Negative (Negative); PH, Urine 5.5 (5.0-8.0); Protein,Urine Negative (Negative); RBC,Urine 1 /hpf (0-5); Squamous Epithelial Cell,Urine 1 /hpf (0-4); Urobilinogen,Urine <2.0 mg/dL (<2.0); WBC,Urine 22 /hpf (0-5)
[2020-10-14] MEDS: PANTOPRAZOLE 40 MG TABLET PO SCH ×2 (07:03→16:35)
--- NOTE | 2020-10-14 09:18 | P.PN ---
Subjective Progress Note Date: 10/14/20 HISTORY OF PRESENT ILLNESS: Patient examined this morning the bedside. Patient denies chest pain or pressure. She states her shortness of breath has improved. She underwent right thoracentesis yesterday with removal of 750 mL. Echocardiogram completed reveals ejection fraction 45-50%, inferior LV wall hypokinesis and inferior septal LV wall hypokinesis. Moderate generalized pericardial effusion. Blood pressure 124/80. The patient remains on IV Lasix. 10/10/2020 Patient examined this morning. She is sitting up in the chair. She denies chest pain or pressure. She denies shortness of breath. She reports continued lower extremity edema. Telemetry reveals sinus bradycardia with a heart rate in the 50s. Patient did have a pause on telemetry this morning. Blood pressure 103/70. BUN 39. Creatinine 1.06. 10/11/2020 Patient examined this morning at the bedside. Patient denies chest pain or pressure. she denies shortness of breath. She remains on IV Lasix. Creatinine 1.05. She continues to have lower extremity edema. Patient went into second degree heart block yesterday and her metoprolol was discontinued by Dr. Sandhu 10/12/2020 Patient examined this morning at the bedside. Patient denies chest pain or pressure. Denies shortness of breath. She continues to have lower extremity edema. She is on IV lasix. Patient is tachycardic with a heart rate in the 110- 120s. EKG completed and reviewed with Dr. Kim revealing atrial tachycardia. 10/13/2020 Patient examined this point bedside. Patient denies chest pain or pressure. She denies shortness of breath. She remains on nasal cannula with oxygen saturation greater than 92%. Heart rate is better controlled today after initiating low-dose beta josé yesterday. 10/14/2020 Patient examined this morning at the bedside. Patient appears confused this morning. She denies chest pain or pressure. Denies shortness of breath. She continues to have lower extremity edema. Patient fell last night. Brain CT completed which was negative for acute process. Chest x-ray completed reveals cream and we. There is some mild prominence of the pulmonary vascular markings. Consider approaching volume overload. Patient remains on IV Lasix. PHYSICAL EXAM: VITAL SIGNS: Reviewed. GENERAL: Well-developed in no acute distress. NECK: Supple. No JVD or thyromegaly LUNGS: Respirations even and unlabored. Lungs diminished to auscultation bilaterally. HEART: Regular rate and rhythm. S1 and S2 heard. EXTREMITIES: Normal range of motion. No clubbing or cyanosis. Peripheral pulses intact. 1-2+ lower extremity edema ASSESSMENT: Moderate generalized pericardial effusion Abnormal troponins, not suggestive of acute coronary syndrome History of multiple myeloma Right pleural effusion, status post thoracentesis Hypertension Hyperlipidemia PLAN: Continue telemetry monitoring Continue current dose of metoprolol Continue IV Lasix. Dosing per internal medicine Continue additional cardiac medications Daily weights Accurate I&O Monitor kidney function Check BNP AFUA hose to bilateral lower extremities Further recommendations pending patient course Nurse practitioner note has been reviewed by physician. Signing provider agrees with the documented findings, assessment, and plan of care. Objective - Vital Signs Vital signs: Vital Signs Temp 97.8 F 10/14/20 04:30 Pulse 71 10/14/20 04:30 Resp 21 10/14/20 04:30 BP 108/72 10/14/20 04:30 Pulse Ox 93 L 10/14/20 04:30 Intake & Output 10/13/20 10/14/20 10/14/20 18:59 06:59 18:59 Intake Total 280 240 Output Total 375 225 Balance -95 -225 240 Weight 64.1 kg Intake: Oral 280 240 Output: Urine 375 225 Other: Voiding Method Toilet Bedside Commode # Voids 1 2 - Labs CBC & Chem 7: 10/14/20 09:22 10/14/20 09:22 Labs: Abnormal Lab Results - Last 24 Hours (Table) 10/14/20 Range/Units 00:00 Urine Appearance Cloudy H (Clear) Ur Leukocyte Esterase Moderate H (Negative) Urine WBC 22 H (0-5) /hpf Amorphous Sediment Occasional H (None) /hpf Urine Bacteria Many H (None) /hpf Hyaline Casts 49 H (0-2) /lpf Urine Mucus Rare H (None) /hpf
[2020-10-14] MEDS: METOPROLOL TARTRATE 12.5 MG TAB PO SCH (09:23)
[2020-10-14] MEDS: SERTRALINE 50 MG TAB PO SCH (09:23)
[2020-10-14] MEDS: FUROSEMIDE 10 MG/ML 4 ML VIAL IV SCH ×2 (09:23→20:35)
[2020-10-14] MEDS: SPIRONOLACTONE 25 MG TAB PO SCH ×2 (09:23→20:35)
[2020-10-14 09:48] LABS: Anisocytosis Slight; HGB 18.1 gm/dL (11.4-16.0); MCH 31.1 pg (25.0-35.0); MCHC 32.7 g/dL (31.0-37.0); MCV 95.1 fL (80.0-100.0); Mean Platelet Volume 9.5; Platelet Count 144 k/uL (150-450); RBC 5.82 m/uL (3.80-5.40); RDW 16.9 % (11.5-15.5); WBC 10.9 k/uL (3.8-10.6)
[2020-10-14 10:11] LABS: Albumin 3.4 g/dL (3.5-5.0); Calcium 10.1 mg/dL (8.4-10.2); Potassium 5.5 mmol/L (3.5-5.1); Total Bilirubin 5.1 mg/dL (0.2-1.3); Total Protein 5.9 g/dL (6.3-8.2)
[2020-10-14 10:23] LABS: HCT 55.4 % (34.0-46.0)
[2020-10-14 11:09] LABS: Lymphocytes # (M) 0.44 k/uL (1.0-4.8); Monocytes # (M) 0.87 k/uL (0-1.0); Neutrophils # (M) 9.59 k/uL (1.3-7.7); Neutrophils % (M) 88 %; Nucleated Red Blood Cells 0 /100 WBC (0-0); Total Cells Counted 100
--- NOTE | 2020-10-14 12:20 | P.PN ---
Subjective Progress Note Date: 10/14/20 This 70-year-old pleasant female patient of Dr. Hand, with underlying history of paraesophageal hiatal hernia and GERD, chronic bronchial asthma, mild intermittent hypertension, hyperlipidemia, and recently diagnosed to have amyloidosis and multiple diet myeloma, through confirmedbone marrow biopsy, 2 weeks ago. He she is supposed to start treatment with Dr. Madrid this 10/11/2020. She also sees Dr. mercer, for what was suspected to be pericardial effusion. She was recently hospitalized, 08/25/2020, for shortness of breath, sees Dr. Soria cardiology and was diagnosed to have an STEMI, in, 07/17/2020, in the clinic in [facility]. She underwent a heart cath, the second time and was found to have nonobstructive CAD, diastolic CHF, EF was documented to be normal that time, and was discharged with Cozaar and Lopressor Lasix and potassium. She was admitted from our facility Jul, 2020, with chronic dyspnea secondary to restrictive cardiomyopathy, pericardial effusion, and pleural effusion, possible to get amyloidosis at that time. She now comes in to the emergency room, which shortness of breath, edema, difficulty of breathing, patient also has anasarca, generalized weakness, and fatigue, patient felt lightheaded and dizzy, patient did not pass out, has diff iculty in ambulating and has difficulty in getting up when she was lowered down to the floor upon her fall, she has no appetite, denies any new weight loss, however she is gaining more weight with edema, her pulse ox at home was around 90% on room air, in the emergency room, she has no leukocytosis, with WBCs 10, hemoglobin is 18.8, creatinine of 0.9, BUN of 36, sodium 136, platelet count is 164 troponin of 0.263, alkaline phosphatase elevated to 19, AST ALT, elevated, total bili elevated 4.4. Consults were made with cardiology, and oncology for the elevated troponin, and amyloidosis, multiple myeloma echocardiogram is requested for pleural effusion,, patient has seen Dr. hills in the past, we will obtain his service, and a thoracic ultrasound 10/10: Patient is found resting comfortably in bed without any acute distress. Patient states that she is breathing better compared to yesterday. Chest CTA yesterday shows no acute PE, cardiomegaly with pericardial effusion and contrast reflux headache veins. Anasarca with small volume abdominal ascites suggested of third spacing. Small to moderate right pleural effusion. She has post thoracentesis. Ejection fraction on echocardiogram showed 45-50%. she remains on IV Lasix. Continues to have 2+ peripheral lower extremity edema. 10/11: Patient is seen today on the cardiac stepdown unit. States that she is feeling much better from yesterday. She is known to have increased lower extremity edema for which Lasix increased. Breathing status is improved today. Patient is followed by oncology, cardiology and pulmonary medicine. Repeat blood work reveals WBC 6.1, hemoglobin 16.3. Platelet count not reported. Sodium 133, potassium 5, chloride 97, CO2 29, BUN 47 and creatinine 1.05. Blood sugar 123. Repeat chest x-ray reveals small right pleural effusion and mildly decreased from 10/08. Cytology is pending. 10/12: Patient is followed by consultants pulmonary medicine, oncology and cardiology. She denies having any chest pain or shortness of breath. She is on IV Lasix. Heart rate is running in the 110 to 120s with atrial tachycardia. Cardiology has added metoprolol 12.5 mg. Patient is worked with physical therapy and she had difficulty with stairs. We will add a consult for Dr. Juan Pablo gordon. At this time patient will consider [facility] but this is complicated because of patient requires chemotherapy and this cannot be postponed, patient will not be able to obtain subacute rehab. Repeat blood work reveals WBC 13.3, hemoglobin 16.8, platelet count 136. Sodium 132, potassium 5.0, chloride 94, CO2 31, BUN 54 and creatinine 1.02. Total bilirubin 2.9, AST 144, ALT 117, alkaline phosphatase 188. Oncology has ordered dexamethasone 40 mg daily for 4 doses. 10/13: Patient has completed course of dexamethasone. Further plan to be determined by oncology. Orthostatics were checked and were negative and patient's nurse will recheck orthostatics this morning. Patient will be placed on Lasix 40 mg IV twice daily. Chest x-ray ordered., Pulse ox 97% on 5 L nasal cannula. Repeat blood work reveals WBC 11.1, hemoglobin 17.6, platelet count 144. Sodium 130, potassium 5.3, chloride 92, CO2 34, BUN 64 creatinine 1.04. Total bilirubin 3.8, AST 119, ALT 125, alkaline phosphatase 187. control officer manager is working on discharge planning depending on plan from oncology. Patient may be ready for discharge by tomorrow. 10/14: Cytology from pleural fluid revealed limited hypocellular specimen with rare scattered mesothelial cells and inflammatory cells. Last evening, patient had increased confusion, right lower extremity drift. Repeat CAT scan of the brain was ordered which revealed mild periventricular white matter ischemic type changes. Neurology consult was added. Patient is alert and oriented 3 and answering questions appropriately at this time. Patient noted to have increased weakness to the right lower extremity. She states she has had that since she had a fall in her home about 2 weeks ago. She states she was walking on a wood floor and slipped and fell. She denied having any lightheadedness or dizziness at the time with this. Liver ultrasound revealed At 0.45 cm. Small pericholecystic fluid present. Correlate for cholecystitis. Possible nonobstructing inferior right renal pole renal stone. Repeat chest x-ray reveals cardiomegaly. Small mild prominence of pulmonary vascular markings. Consider approaching volume overload. Oncology is following and patient completed course of steroid, 4 days. Insurance has denied subacute rehab and requiring appeared to care which will be on hold at this time. Patient is not ready for discharge. Review Of Systems: Constitutional: No fever, no chills, no night sweats. No weight change. No weakness, fatigue or lethargy. No daytime sleepiness. EENT: No headache. No blurred vision or double vision, no loss of vision. No loss of Hearing, no ringing in the ears, no dizziness. No nasal drainage or congestion. No epistaxis. No sore throat. Lungs: Reports shortness of breath improved, cough, no sputum production. No wheezing. Cardiovascular: No chest pain, no lower extremity edema. No palpitations. No paroxysmal nocturnal dyspnea. No orthopnea. No lightheadedness or dizziness. No syncopal episodes. Abdominal: no abdominal discomfort. No nausea, vomiting. no diarrhea. No constipation. No bloody or tarry stools. no loss of appetite. Genitourinary: No dysuria, increased frequency, urgency. No urinary retention. Musculoskeletal: No myalgias. Reports muscle weakness bilateral lower extremities, no gait dysfunction, no frequent falls. No back pain. No neck pain. Integumentary: No wounds, no lesions. No rash or pruritus. No unusual bruising. No change in hair or nails. Neurologic: No aphasia. No facial droop. Reported change in mentation yesterday and last evening. No head injury. No headache. No paralysis. No paresthesia. Psychiatric: No depression. No anxiety. No mood swings. Endocrine: No abnormal blood sugars. No weight change. No excessive sweating or thirst. Physical Exam: General Appearance: Alert, cooperative, no distress, this is a 70-year-old pleasant female appears stated age. Neck HEENT: Supple, no lymphadenopathy, no thyroid enlargement, no carotid bruits. Lungs: Clear to auscultation without crackles or wheezes, diminished no rhonchi, no deformity. Chest Wall: Chest wall normal expansion with deep inspiration no tenderness and no deformity was found on exam, no costochondral pain or discomfort. Heart: Regular rate and rhythm, S1, S2 normal, no murmur, rub or gallop. Back: Symmetric, no curvature, ROM normal, no CVA tenderness. Abdomen: Soft, non-tender, no rebound or rigidity, no hepatosplenomegaly. Extremities: Extremities normal, atraumatic, no cyanosis, 2+ bilateral lower extremity edema Pulses: 2+ and symmetric. Skin: Skin color, texture, tugor normal, no rashes or lesions. Neurologic: Alert oriented x3 cranial nerves II through XII intact, no motor deficit, no abnormal balance or gait Assessment/plan: 1. Acute on chronic dyspnea secondary with acute hypoxemic respiratory failure, currently multifactorial to include amyloidosis, with cardiomyopathy, moderate right pleural effusion, and recent diagnosis of pericardial effusion,, consult appreciated by pulmonology, cardiology, and oncology. Patient underwent a thoracentesis with removal of 750 ML's of tarry colored fluid without difficulty. Pathology negative for malignancy. Fluid will be sent for studies. Continue Lasix 40 mg IV 2 times daily, pre-albumin less than 5 2. Elevated troponins which is chronic,. Patient had recent heart catheterization in [place] was reported as negative for obstructive disease 07/2020. Cardiology consult and repeat troponins. Echocardiogram conclusion: EF between 45 and 50%, moderate concentric left ventricular atrophy, moderate gener alized pericardial effusion present, right ventricle is mildly enlarged, ileus mildly dilated, mild pulmonary hypertension. Her ventricular systolic pressure measured by Doppler is 39.15 mmHg. 3. Amyloidosis, suspect cardiac cardiac cardiomyopathy, no treatment initiated yet, oncology consult appreciated, 4. Multiple myeloma. Patient completed course of dexamethasone per oncology. 5. Transaminitis with elevated total bili / jaundice possibly secondary to cholecystitis possibly secondary to amyloid as well, 3. Hyperlipidemia. Continue Lipitor 20 mg daily. 4. Hypertension. Continu Lopressor 25 mg twice daily. 5. Hiatal hernia status post robotic-assisted laparoscopic repair of incarcerated paraesophageal hernia in April 2020, stable. 6. Mild intermittent asthma, stable. 7. Gastroesophageal reflux disease and GI prophylaxis. Continue omeprazole 20 g twice daily. 8. Generalized anxiety disorder. Continue Xanax 0.25 mg twice daily. 9. Metabolic encephalopathy most likely secondary to high-dose steroids which have been discontinued. Neurology consult. CAT scan of the brain was negative for acute findings. Carotid ultrasound ordered. 10. DVT prophylaxis. Heparin subcu. 11. GI prophylaxis. Protonix 40 mg CODE STATUS: Full code Discharge plan: Subacute rehab or home with home care Impression and plan of care have been directed as dictated by the signing physician. Lisa Davis nurse practitioner acting as scribe for signing physician. Objective - Vital Signs Vital signs: Vital Signs Temp 98.1 F 10/14/20 09:20 Pulse 69 10/14/20 09:20 Resp 20 10/14/20 09:20 BP 111/76 10/14/20 09:20 Pulse Ox 93 L 10/14/20 09:20 Intake & Output 10/13/20 10/14/20 10/14/20 18:59 06:59 18:59 Intake Total 280 240 Output Total 375 225 Balance -95 -225 240 Weight 64.1 kg Intake: Oral 280 240 Output: Urine 375 225 Other: Voiding Method Toilet Bedside Commode # Voids 1 2 - Labs CBC & Chem 7: 10/14/20 09:22 10/14/20 09:22 Labs: Abnormal Lab Results - Last 24 Hours (Table) 10/14/20 Range/Units 00:00 Urine Appearance Cloudy H (Clear) Ur Leukocyte Esterase Moderate H (Negative) Urine WBC 22 H (0-5) /hpf Amorphous Sediment Occasional H (None) /hpf Urine Bacteria Many H (None) /hpf Hyaline Casts 49 H (0-2) /lpf Urine Mucus Rare H (None) /hpf Microbiology - Last 24 Hours (Table) 10/14/20 00:00 Urine Culture - Preliminary Urine,Voided
[2020-10-14] MEDS: metOLazone 2.5 MG TAB PO SCH (12:29)
[2020-10-14] MEDS: ACETAMINOPHEN TAB 325 MG TAB PO PRN (12:44)
[2020-10-14] MEDS: ONDANSETRON 4 MG/2 ML VIAL IVP PRN (12:52)
--- NOTE | 2020-10-14 14:23 | P.PN ---
Subjective Progress Note Date: 10/14/20 Principal diagnosis: Multiple Myeloma, Respiratory Insufficiency Increased confusion yesterday evening, and increased shortness of breath. CT Chest and CT Brain (repeated after fall with hitting head) was performed. Neurology was consulted regarding abnormal (likely more chronic) markings. Chest xray to correlate fluid overload however renal function worsening and hemoglobin increased in line more with a intravascular volume depletion. Question recurrent pleural effusions with need for therapeutic pleuracentesis. She is still very weak and if rehab is needed and unable to treat underlying myeloma will plan to continue pulse dose dexamethasone 40mg po daily x4 days, then 4 days off, and repeat. May start PO revlimid if accepted and allowed per rehab (ideal for patients overall care). She is up in chair, no family at bedside during visit. Still a little confused today. Objective - Vital Signs Vital signs: Vital Signs Temp 97.7 F 10/14/20 12:30 Pulse 56 L 10/14/20 12:30 Resp 18 10/14/20 12:30 BP 106/62 10/14/20 12:30 Pulse Ox 96 10/14/20 12:30 Intake & Output 10/13/20 10/14/20 10/14/20 18:59 06:59 18:59 Intake Total 280 720 Output Total 375 225 2 Balance -95 -225 718 Weight 64.1 kg Intake: Oral 280 720 Output: Urine 375 225 1 Stool 1 Other: Voiding Method Toilet Bedside Commode Bedside Commode # Voids 1 2 400 - Exam - Constitutional Patient was laying fairly flat comfortably, but did seem to be at least slightly short of breath while conversing General appearance: no acute distress - EENT Eyes: EOMI, PERRLA ENT: hearing grossly normal, normal oropharynx - Neck Neck: no lymphadenopathy Thyroid: bilateral: normal size - Respiratory Respiratory: right: diminished, rales, increased effort noted - Cardiovascular Rhythm: Tachycardia - Gastrointestinal General gastrointestinal: normal bowel sounds, soft - Integumentary Integumentary: normal - Neurologic Neurologic: CNII-XII intact - Musculoskeletal Musculoskeletal: generalized weakness, strength equal bilaterally - Psychiatric Psychiatric: A&O x's 1, COnfusion - Labs CBC & Chem 7: 10/14/20 09:22 10/14/20 09:22 Labs: Abnormal Lab Results - Last 24 Hours (Table) 0710/14/20 10/14/20 Range/Units 00:00 09:22 09:22 WBC 10.9 H (3.8-10.6) k/uL RBC 5.82 H (3.80-5.40) m/uL Hgb 18.1 H (11.4-16.0) gm/dL Hct 55.4 H (34.0-46.0) % RDW 16.9 H (11.5-15.5) % Plt Count 144 L (150-450) k/uL Neutrophils # (Manual) 9.59 H (1.3-7.7) k/uL Lymphocytes # (Manual) 0.44 L (1.0-4.8) k/uL Sodium 130 L (137-145) mmol/L Potassium 5.5 H (3.5-5.1) mmol/L Chloride 92 L (98-107) mmol/L Carbon Dioxide 31 H (22-30) mmol/L BUN 79 H (7-17) mg/dL Creatinine 1.18 H (0.52-1.04) mg/dL Glucose 163 H (74-99) mg/dL Total Bilirubin 5.1 H (0.2-1.3) mg/dL AST 90 H (14-36) U/L ALT 117 H (4-34) U/L Alkaline Phosphatase 193 H (38-126) U/L Total Protein 5.9 L (6.3-8.2) g/dL Albumin 3.4 L (3.5-5.0) g/dL Urine Appearance Cloudy H (Clear) Ur Leukocyte Esterase Moderate H (Negative) Urine WBC 22 H (0-5) /hpf Amorphous Sediment Occasional H (None) /hpf Urine Bacteria Many H (None) /hpf Hyaline Casts 49 H (0-2) /lpf Urine Mucus Rare H (None) /hpf Microbiology - Last 24 Hours (Table) 10/14/20 00:00 Urine Culture - Preliminary Urine,Voided Assessment and Plan (1) Dyspnea Current Visit: Yes Status: Acute Code(s): R06.00 - DYSPNEA, UNSPECIFIED SNOMED Code(s): 961886944 (2) Multiple myeloma Current Visit: Yes Status: Acute Code(s): C90.00 - MULTIPLE MYELOMA NOT HAVING ACHIEVED REMISSION SNOMED Code(s): 551322563 (3) Congestive heart failure Current Visit: No Status: Acute Code(s): I50.9 - HEART FAILURE, UNSPECIFIED SNOMED Code(s): 97038778 Plan: CTA Negative for PE Will proceed with a pulse dose steroid 40mg PO daily x4 to treat Myeloma Comments: Echocardiogram report reviewed. EKG reviewed Chest x-ray: report reviewed CT scan - abdomen: report reviewed CT scan - pelvis: report reviewed Assessment and Plan Dyspnea CTA Neg Probable component of congestive heart failure exacerbation, as well as pleural effusion due to her underlying hematologic condition. - Patient had a chest ultrasound with the site of the pleural effusion marked. - Status Post thoracentesis on 10/08/20. Awaiting Flow report to be scanned in, fluid negative for cytology. Current Visit: Yes Status: Acute Code(s): R06.00 - DYSPNEA, UNSPECIFIED SNOMED Code(s): 564911792 Multiple myeloma - There is concern of light chain deposit, given the appearance of the myocardium on echocardiogram - She is to start on the RVD regimen for myeloma on 10/11/20. - This will also treat any light chain deposition disease in a specific organ. - Status post treatment pulse dose steroid today 40mg po daily x4 days, with PPI Current Visit: Yes Status: Acute Code(s): C90.00 - MULTIPLE MYELOMA NOT HAVING ACHIEVED REMISSION SNOMED Code(s): 406780375 Increased Hemoglobin: - Stop Iron Supplementation Increased LFTs: Worsening likely medication related - Monitor Atrial Tachycardia: - Cardiology is following Increased confusion yesterday evening, and increased shortness of breath. CT Chest and CT Brain (repeated after fall with hitting head) was performed. Neurology was consulted regarding abnormal (likely more chronic) markings. Chest xray to correlate fluid overload however renal function worsening and hemoglobin increased in line more with a intravascular volume depletion. Question recurrent pleural effusions with need for therapeutic pleuracentesis. She is still very weak and if rehab is needed and unable to treat underlying myeloma will plan to continue pulse dose dexamethasone 40mg po daily x4 days, then 4 days off, and repeat. May start PO revlimid if accepted and allowed per rehab (ideal for patients overall care). Recommend Nephrology to follow ?Nephrology and GI Evaluation. WIll defer to Primary team. In interim monitor closely labs
[2020-10-14 15:48] LABS: Hepatitis A Antibody IgM Non-Reactive (Non-Reactive); Hepatitis B Core IgM Non-Reactive (Non-Reactive); Hepatitis B Surface Antigen Non-Reactive (Non-Reactive); Hepatitis C IgG Antibody Non-Reactive (Non-Reactive)
--- NOTE | 2020-10-14 17:05 | P.CNNES ---
History of Present Illness Consult date: 10/14/20 Requesting physician: Levar Alcazar Reason for Consult: Mental status change, right lower extremity drift History of Present Illness: Patient is a 70-year-old female with history of multiple myeloma came to the hospital on 10/07/2020 lethargy, dehydration. Patient was found to have elevated troponins and cardiomyopathy. Patient also has been noted to be confused in the hospital. Per nurse, who took care of the patient over the weekend on 10/09/2020 and 10/10/2020 informed me that patient was confused at that time as well. Patient has suffered from a fall in the hospital. Initial CT head showed no acute process. Patient tells me that there were "too many people in the room", and she took a wrong step, tripped on the cord, and fell on someone else. Although apparently she did not fall on anyone. Patient states that she got a bump in the head but nothing serious. As per nursing documentation from 10/13/2020, 4:39 PM, patient was noted to be more confused. At approximately 9 AM patient stated that both her and the night nurse fell last night. The nurse informed her that the other nurse at night did not fall. Patient states that both herself and the night nurse who fell with her got a brain computed tomography scan which did not happen. Patient was also noted to have some right leg drift and slow verbal response with delayed latency. After this altered mentation, patient underwent a repeat CT head of the brain which again showed no acute process. Neurology consult initiated. Patient's most recent blood test shows WBC 10.9 hemoglobin 18.1, platelets 144. Sodium 130 potassium 5.5, BUN 79, creatinine 1.18. AST is 90, ALT 117. Ammonia is normal 9. Serum protein electrophoresis revealed unusual L4 region making it difficult to exclude a paraprotein. Quantitative immunoglobulins normal. Free lambda light chain is 85.40/2.63. [place] light chain is normal 1.92. 2-D echo on 10/08/2020 showed normal left-ventricular size. Moderate concentric LVH. EF is between 45-50%. Basal inferior, basal inferior septal left- ventricular wall motion is hypokinetic. Left atrium is mildly dilated. Trace to mild AR. There is moderate, generalized pericardial effusion. Patient has been seen by cardiology and medications has been adjusted. CTA of the chest revealed no PE. Cardiomegaly with pericardial effusion and contrast refluxed hepatic veins. Correlate for hepatic failure. Anasarca with small volume abdominal ascites, suggestive of third spacing. Small to moderate right pleural effusion. Patient has history of multiple myeloma, hypertension, hyperlipidemia. Patient denies diabetes, never had any history of strokes. She is never smoker. She drinks alcohol once in a while. Review of Systems Patient denies headache, any problem with the vision, hoarseness, sore throat dysphagia. She does have some shortness of breath. Denies any abdominal pain nausea vomiting diarrhea. Denies any fever or chills. No rash. Denies anxiety depression. Past Medical History Past Medical History: Asthma, Chest Pain / Angina, GERD/Reflux, Hyperlipidemia, Hypertension, Myocardial Infarction ([place]) Additional Past Medical History / Comment(s): Hiatal Hernia, hx 2 ulcers in stomach; Bursitis both knees. Hx pancreatitis, SOB w/exertion due to hernia Last Myocardial Infarction Date:: 07/2020 History of Any Multi-Drug Resistant Organisms: None Reported Past Surgical History: Back Surgery, Heart Catheterization, Heart Catheterization With Stent, Hysterectomy, Orthopedic Surgery, Tonsillectomy Additional Past Surgical History / Comment(s): Back surgery with hardware, L carpal tunnel, L foot surgery, Past Anesthesia/Blood Transfusion Reactions: Previous Problems w/ Anesthesia, Motion Sickness, Postoperative Nausea & Vomiting (PONV) Additional Past Anesthesia/Blood Transfusion Reaction / Comment(s): was told stopped breathing during EGD Date of Last Stent Placement:: unknown Past Psychological History: Depression Smoking Status: Never smoker Past Alcohol Use History: Occasional Past Drug Use History: None Reported - Past Family History Mother Family Medical History: No Reported History, Asthma, Diabetes Mellitus Father Family Medical History: No Reported History Additional Family Medical History / Comment(s): Father lived to be 90yrs. Sister(s) Family Medical History: No Reported History Daughter(s) Family Medical History: No Reported History Medications and Allergies Home Medications Medication Instructions Recorded Confirmed Type ALPRAZolam [Xanax] 0.25 mg PO HS 11/01/18 10/07/20 History Atorvastatin [Lipitor] 20 mg PO DAILY 04/14/20 10/07/20 History Ferrous Sulfate [Iron (65 MG 325 mg PO DAILY 08/24/20 10/07/20 History Elemental)] Metoprolol Tartrate [Lopressor] 25 mg PO BID 08/24/20 10/07/20 History Omeprazole 20 mg PO BID 08/24/20 10/07/20 History Lenalidomide [Revlimid] 25 mg PO DIRECTED 10/07/20 10/07/20 History Multivitamins, Thera [Multivitamin 1 tab PO DAILY 10/07/20 10/07/20 History (formulary)] Sertraline [Zoloft] 50 mg PO DAILY 10/07/20 10/07/20 History Spironolactone [Aldactone] 25 mg PO BID 10/07/20 10/07/20 History dexAMETHasone [Dexamethasone] 20 mg PO DIRECTED 10/07/20 10/07/20 History Allergies Allergy/AdvReac Type Severity Reaction Status Date / Time No Known Allergies Allergy Verified 10/07/20 19:46 Physical Examination - Vital Signs Vital Signs: Vital Signs Temp Pulse Resp BP BP Pulse Ox 10/14/20 09:20 98.1 F 69 20 111/76 93 L 10/14/20 04:30 97.8 F 71 21 108/72 93 L 10/13/20 23:50 98.1 F 64 20 126/86 96 10/13/20 20:00 97.7 F 67 20 110/76 93 L 10/13/20 16:00 97.6 F 65 19 104/70 96 10/13/20 14:00 106 H 20 Intake and Output 10/13/20 10/14/20 10/14/20 22:59 06:59 14:59 Intake Total 180 240 Output Total 225 1 Balance 180 -225 239 Intake: Oral 180 240 Output: Urine 225 Stool 1 Other: Voiding Method Bedside Commode Bedside Commode Bedside Commode # Voids 1 2 Weight 64.1 kg Patient is an elderly female, in mild respiratory distress. Patient is alert awake. Patient states it is September and the year is 19. She knows that she is in [facility] in [place] and name of the current president, her age and date of . Speech and language functions are normal. Patient can name and repeat very well. Attention, concentration and fund of knowledge is slightly limited. On cranial examination, pupils are round, but slightly unequal, the left pupil is slightly larger than the right. Both are reactive. Her visual barrientos are full on confrontation, extraocular muscles are intact with no nystagmus. Face is symmetric, tongue protrudes to the midline. Palatal elevation and sensation normal, hearing and shoulder shrug normal, facial sensation normal. On muscle strength testing, there is mild left pronator drift and the strength is normal in arms distally and proximally. In the lower extremities her strength is normal in the hip adduction and hip abduction. Her hip flexion is only 3+4-bilaterally, left slightly worse. Knee extension, ankles and toes are normal. Deep tendon reflexes are 1 in the right upper extremity, 2+ in the left upper extremities. In the lower extremities, bilateral knees are 2+, ankles 1 and plantars are flat on either side. Sensory to touch is equal with no neglect. Cerebellar function showed no ataxia for [id number] testing. No dysdiadochokinesia. Tone and bulk of muscles normal. Gait normal. On general examination, there is no carotid bruit or murmur, S1-S2 audible. Abdomen is soft nontender. Chest is clear. Peripheral pulses are present. Mild peripheral edema. Results - Laboratory Findings CBC and BMP: 10/15/20 08:05 10/15/20 08:05 Abnormal Lab Findings: Abnormal Labs 10/07/20 10/07/20 10/07/20 17:50 17:50 17:50 WBC RBC 6.17 H Hgb 18.8 H Hct 59.3 H* MCHC RDW 17.2 H Plt Count Neutrophils # 7.9 H Neutrophils # (Manual) Lymphocytes # Lymphocytes # (Manual) Monocytes # PT INR Sodium 136 L Potassium Chloride Carbon Dioxide BUN 36 H Creatinine Glucose POC Glucose (mg/dL) Calcium 10.5 H Total Bilirubin 4.4 H Conjugated Bilirubin Delta Bilirubin AST 90 H ALT 57 H Alkaline Phosphatase 219 H Troponin I 0.263 H* Total Protein Total Protein (PEP) Albumin Albumin (PEP) Prealbumin Beta Globulins Urine Appearance Ur Leukocyte Esterase Urine WBC Amorphous Sediment Urine Bacteria Hyaline Casts Urine Mucus Free Lambda LC, Quant 10/07/20 10/07/20 10/07/20 18:39 20:53 23:55 WBC RBC Hgb Hct MCHC RDW Plt Count Neutrophils # Neutrophils # (Manual) Lymphocytes # Lymphocytes # (Manual) Monocytes # PT 13.4 H INR 1.3 H Sodium Potassium Chloride Carbon Dioxide BUN Creatinine Glucose POC Glucose (mg/dL) Calcium Total Bilirubin Conjugated Bilirubin Delta Bilirubin AST ALT Alkaline Phosphatase Troponin I 0.260 H* 0.268 H* Total Protein Total Protein (PEP) Albumin Albumin (PEP) Prealbumin Beta Globulins Urine Appearance Ur Leukocyte Esterase Urine WBC Amorphous Sediment Urine Bacteria Hyaline Casts Urine Mucus Free Lambda LC, Quant 10/08/20 10/08/20 10/08/20 08:06 08:06 08:06 WBC RBC 5.74 H Hgb 17.3 H Hct 55.3 H MCHC RDW 17.2 H Plt Count 143 L Neutrophils # Neutrophils # (Manual) Lymphocytes # Lymphocytes # (Manual) Monocytes # PT INR Sodium 135 L Potassium Chloride Carbon Dioxide 21 L BUN 36 H Creatinine Glucose 107 H POC Glucose (mg/dL) Calcium Total Bilirubin 3.5 H Conjugated Bilirubin Delta Bilirubin AST 80 H ALT 52 H Alkaline Phosphatase 194 H Troponin I Total Protein 5.6 L Total Protein (PEP) Albumin 3.3 L Albumin (PEP) Prealbumin <5.0 L Beta Globulins Urine Appearance Ur Leukocyte Esterase Urine WBC Amorphous Sediment Urine Bacteria Hyaline Casts Urine Mucus Free Lambda LC, Quant 10/09/20 10/09/20 10/09/20 09:43 09:43 09:43 WBC RBC 5.89 H Hgb 17.6 H Hct 56.7 H MCHC RDW 17.3 H Plt Count 132 L Neutrophils # Neutrophils # (Manual) Lymphocytes # Lymphocytes # (Manual) Monocytes # PT INR Sodium 133 L Potassium Chloride Carbon Dioxide BUN 39 H Creatinine 1.06 H Glucose 153 H POC Glucose (mg/dL) Calcium Total Bilirubin 3.5 H Conjugated Bilirubin 0.8 H Delta Bilirubin 1.8 H AST 85 H ALT 56 H Alkaline Phosphatase 187 H Troponin I Total Protein 5.7 L Total Protein (PEP) 5.6 L Albumin 3.2 L Albumin (PEP) 3.35 L Prealbumin Beta Globulins 0.53 L Urine Appearance Ur Leukocyte Esterase Urine WBC Amorphous Sediment Urine Bacteria Hyaline Casts Urine Mucus Free Lambda LC, Quant 85.40 H 10/10/20 10/11/20 10/11/20 10:17 05:47 05:47 WBC RBC 5.46 H Hgb 16.3 H Hct 53.5 H MCHC 30.4 L RDW 17.1 H Plt Count 111 L Neutrophils # Neutrophils # (Manual) Lymphocytes # 0.7 L Lymphocytes # (Manual) Monocytes # PT INR Sodium 133 L 133 L Potassium Chloride 97 L Carbon Dioxide BUN 43 H 47 H Creatinine 1.20 H 1.05 H Glucose 156 H 123 H POC Glucose (mg/dL) Calcium Total Bilirubin Conjugated Bilirubin Delta Bilirubin AST ALT Alkaline Phosphatase Troponin I Total Protein Total Protein (PEP) Albumin Albumin (PEP) Prealbumin Beta Globulins Urine Appearance Ur Leukocyte Esterase Urine WBC Amorphous Sediment Urine Bacteria Hyaline Casts Urine Mucus Free Lambda LC, Quant 10/12/20 10/12/20 10/12/20 07:24 07:24 22:00 WBC 13.3 H RBC Hgb 16.8 H Hct 50.9 H MCHC RDW 16.8 H Plt Count 136 L Neutrophils # 11.3 H Neutrophils # (Manual) Lymphocytes # 0.7 L Lymphocytes # (Manual) Monocytes # 1.1 H PT INR Sodium 132 L Potassium Chloride 94 L Carbon Dioxide 31 H BUN 54 H Creatinine Glucose 125 H POC Glucose (mg/dL) 121 H Calcium Total Bilirubin 2.9 H Conjugated Bilirubin Delta Bilirubin AST 144 H ALT 117 H Alkaline Phosphatase 188 H Troponin I Total Protein 5.8 L Total Protein (PEP) Albumin 3.4 L Albumin (PEP) Prealbumin Beta Globulins Urine Appearance Ur Leukocyte Esterase Urine WBC Amorphous Sediment Urine Bacteria Hyaline Casts Urine Mucus Free Lambda LC, Quant 10/13/20 10/13/20 10/14/20 07:14 07:14 00:00 WBC 11.1 H RBC 5.72 H Hgb 17.6 H Hct 54.1 H MCHC RDW 16.9 H Plt Count 144 L Neutrophils # 9.8 H Neutrophils # (Manual) Lymphocytes # 0.7 L Lymphocytes # (Manual) Monocytes # PT INR Sodium 130 L Potassium 5.3 H Chloride 92 L Carbon Dioxide 34 H BUN 64 H Creatinine Glucose 126 H POC Glucose (mg/dL) Calcium Total Bilirubin 3.8 H Conjugated Bilirubin Delta Bilirubin AST 119 H ALT 125 H Alkaline Phosphatase 187 H Troponin I Total Protein 5.7 L Total Protein (PEP) Albumin 3.4 L Albumin (PEP) Prealbumin Beta Globulins Urine Appearance Cloudy H Ur Leukocyte Esterase Moderate H Urine WBC 22 H Amorphous Sediment Occasional H Urine Bacteria Many H Hyaline Casts 49 H Urine Mucus Rare H Free Lambda LC, Quant 10/14/20 10/14/20 09:22 09:22 WBC 10.9 H RBC 5.82 H Hgb 18.1 H Hct 55.4 H MCHC RDW 16.9 H Plt Count 144 L Neutrophils # Neutrophils # (Manual) 9.59 H Lymphocytes # Lymphocytes # (Manual) 0.44 L Monocytes # PT INR Sodium 130 L Potassium 5.5 H Chloride 92 L Carbon Dioxide 31 H BUN 79 H Creatinine 1.18 H Glucose 163 H POC Glucose (mg/dL) Calcium Total Bilirubin 5.1 H Conjugated Bilirubin Delta Bilirubin AST 90 H ALT 117 H Alkaline Phosphatase 193 H Troponin I Total Protein 5.9 L Total Protein (PEP) Albumin 3.4 L Albumin (PEP) Prealbumin Beta Globulins Urine Appearance Ur Leukocyte Esterase Urine WBC Amorphous Sediment Urine Bacteria Hyaline Casts Urine Mucus Free Lambda LC, Quant Assessment and Plan Assessment: * 70-year-old female with diagnosis of multiple myeloma, pericardial effusion, has developed altered mental status, hallucinations, delusions likely due to acute delirium. * Neurological examination reveals slight focal findings. The nurses reported weakness of the right leg, although on my examination it was left leg weaker than the right. Patient also has mild left pronator drift and slight anisocoria. Rule out CVA. * Multiple myeloma. * Pericardial effusion * Hypertension Plan: * Patient has slight focal findings noted on examination. Patient has significantly elevated hematocrit, and multiple myeloma can be associated with hyperviscosity syndrome. Need to rule out CVA. Alternatively, mild sludging leading to fluctuating focal symptoms is also a possibility. We will perform MRI of the brain to evaluate for an acute stroke. * Carotid Doppler rule out carotid stenosis. * 2-D echo on 10/08/2020 showed normal left-ventricular size. Moderate concentric LVH. EF is between 45-50%. Basal inferior, basal inferior septal left-ventricular wall motion is hypokinetic. Left atrium is mildly dilated. Trace to mild AR. There is moderate, generalized pericardial effusion. * B12, folate, MMA, A1c. * Consider starting antiplatelet medication aspirin if no medical contraindication. * DVT prophylaxis. * We will follow.
[2020-10-14] MEDS: ALPRAZolam 0.25 MG TAB PO SCH (20:35)
--- NOTE | 2020-10-15 00:17 | US ---
EXAMINATION TYPE: US carotid duplex BILAT DATE OF EXAM: 10/14/2020 COMPARISON: CT brain CLINICAL HISTORY: cva. CVA. EXAM MEASUREMENTS: RIGHT: Peak Systolic Velocity (PSV) cm/sec ----- Right CCA: 31.9 ----- Right ICA: 47.6 ----- Right ECA: 44.6 ICA/CCA ratio: 1.5 RIGHT: End Diastole cm/sec ----- Right CCA: 7.3 ----- Right ICA: 15.4 ----- Right ECA: 8.4 LEFT: Peak Systolic Velocity (PSV) cm/sec ----- Left CCA: 34.1 ----- Left ICA: 44.6 ----- Left ECA: 47.3 ICA/CCA ratio: 1.3 LEFT: End Diastole cm/sec ----- Left CCA: 8.9 ----- Left ICA: 17.2 ----- Left ECA: 8.4 VERTEBRALS (direction of flow): Right Vertebral: Antegrade Left Vertebral: Antegrade Rhythm: Arrhythmia Intimal thickening seen bilaterally. Right ECA and ICA appear tortuous. No elevated velocities at thi s time. Heterogeneous area seen within the left neck. This area appears to be within the thyroid gland and m easures 2.0 x 1.8 x 1.6 cm. IMPRESSION: There is antegrade flow in the vertebral arteries. The images and measurements suggest less than 15% stenosis in both internal carotid arteries. There is a 2 cm solid nodule in the left thyroid lobe. Comparison with old thyroid ultrasound would be helpful. Criteria for Assigning % of Stenosis / Diameter reduction (Estimation based on the indirect measurements of the internal carotid artery velocities (ICA PSV). 1. Normal (no stenosis)=ICA PSV < 125 cm/s: ratio < 2.0: ICA EDV<40 cm/s. 2. Less than 50% stenosis=ICA PSV < 125 cm/s: ratio < 2.0: ICA EDV<40 cm/s. 3. 50 to 69% stenosis=ICA PSV of 125 to 230 cm/s: ration 2.0 ? 4.0: ICA EDV 40-100 cm/s. 4. Greater than 70% stenosis to near occlusion= ICA PSV > 230 cm/s: ratio > 4.0: ICA EDV > 100 cm/s. 5. Near occlusion= ICA PSV velocities may be low or undetectable: variable ratio and ICA EDV. 6. Total occlusion=unable to detect flow.
[2020-10-15 03:57] LABS: Hemoglobin A1C 6.4 % (4.0-6.0)
[2020-10-15] MEDS: PANTOPRAZOLE 40 MG TABLET PO SCH ×2 (06:16→17:24)
[2020-10-15] MEDS: FUROSEMIDE 10 MG/ML 4 ML VIAL IV SCH (08:57)
[2020-10-15] MEDS: METOPROLOL TARTRATE 12.5 MG TAB PO SCH (08:58)
[2020-10-15] MEDS: metOLazone 2.5 MG TAB PO SCH (08:58)
[2020-10-15] MEDS: SPIRONOLACTONE 25 MG TAB PO SCH ×2 (08:58→20:28)
[2020-10-15] MEDS: SERTRALINE 50 MG TAB PO SCH (08:58)
[2020-10-15 09:25] LABS: Anisocytosis Slight; Basophils % (A) 0 %; Eosinophils % (A) 0 %; HCT 54.4 % (34.0-46.0); HGB 17.9 gm/dL (11.4-16.0); Lymphocytes # (A) 0.6 k/uL (1.0-4.8); Lymphocytes % (A) 5 %; MCH 31.2 pg (25.0-35.0); MCHC 32.9 g/dL (31.0-37.0); MCV 94.9 fL (80.0-100.0); Mean Platelet Volume 9.3; Monocytes # (A) 0.9 k/uL (0-1.0); Monocytes % (A) 8 %; Neutrophils # (A) 10.1 k/uL (1.3-7.7); Neutrophils % (A) 86 %; Platelet Count 143 k/uL (150-450); RBC 5.74 m/uL (3.80-5.40); RDW 16.7 % (11.5-15.5); WBC 11.8 k/uL (3.8-10.6)
--- NOTE | 2020-10-15 09:26 | P.PN ---
Subjective Progress Note Date: 10/15/20 Principal diagnosis: Multiple Myeloma, Respiratory Insufficiency Neurology has seen and evaluated with patient Objective - Vital Signs Vital signs: Vital Signs Temp 97.9 F 10/15/20 08:55 Pulse 70 10/15/20 08:55 Resp 18 10/15/20 08:55 BP 104/68 10/15/20 08:55 Pulse Ox 92 L 10/15/20 08:55 Intake & Output 10/14/20 10/15/20 10/15/20 18:59 06:59 18:59 Intake Total 1200 0 Output Total 2 1202 Balance 1198 -1202 0 Weight 64.1 kg Intake: Oral 1200 0 Output: Urine 1 1200 Stool 1 2 Other: Voiding Method Bedside Commode Toilet # Voids 400 1 - Exam - Constitutional Patient was laying fairly flat comfortably, but did seem to be at least slightly short of breath while conversing General appearance: no acute distress - EENT Eyes: EOMI, PERRLA ENT: hearing grossly normal, normal oropharynx - Neck Neck: no lymphadenopathy Thyroid: bilateral: normal size - Respiratory Respiratory: right: diminished, rales, increased effort noted - Cardiovascular Rhythm: Tachycardia - Gastrointestinal General gastrointestinal: normal bowel sounds, soft - Integumentary Integumentary: normal - Neurologic Neurologic: CNII-XII intact - Musculoskeletal Musculoskeletal: generalized weakness, strength equal bilaterally - Psychiatric Psychiatric: A&O x's 1, COnfusion - Labs CBC & Chem 7: 10/15/20 08:05 10/15/20 08:05 Labs: Abnormal Lab Results - Last 24 Hours (Table) 10/14/20 10/14/20 10/14/20 Range/Units 09:22 09:22 09:22 WBC 10.9 H (3.8-10.6) k/uL RBC 5.82 H (3.80-5.40) m/uL Hgb 18.1 H (11.4-16.0) gm/dL Hct 55.4 H (34.0-46.0) % RDW 16.9 H (11.5-15.5) % Plt Count 144 L (150-450) k/uL Neutrophils # (Manual) 9.59 H (1.3-7.7) k/uL Lymphocytes # (Manual) 0.44 L (1.0-4.8) k/uL Sodium 130 L (137-145) mmol/L Potassium 5.5 H (3.5-5.1) mmol/L Chloride 92 L (98-107) mmol/L Carbon Dioxide 31 H (22-30) mmol/L BUN 79 H (7-17) mg/dL Creatinine 1.18 H (0.52-1.04) mg/dL Glucose 163 H (74-99) mg/dL Hemoglobin A1c 6.4 H (4.0-6.0) % Total Bilirubin 5.1 H (0.2-1.3) mg/dL AST 90 H (14-36) U/L ALT 117 H (4-34) U/L Alkaline Phosphatase 193 H (38-126) U/L Total Protein 5.9 L (6.3-8.2) g/dL Albumin 3.4 L (3.5-5.0) g/dL Microbiology - Last 24 Hours (Table) 10/14/20 00:00 Urine Culture - Preliminary Urine,Voided Assessment and Plan (1) Dyspnea Current Visit: Yes Status: Acute Code(s): R06.00 - DYSPNEA, UNSPECIFIED SNOMED Code(s): 256980311 (2) Multiple myeloma Current Visit: Yes Status: Acute Code(s): C90.00 - MULTIPLE MYELOMA NOT HAVING ACHIEVED REMISSION SNOMED Code(s): 488142683 (3) Congestive heart failure Current Visit: No Status: Acute Code(s): I50.9 - HEART FAILURE, UNSPECIFIED SNOMED Code(s): 72680707 Plan: CTA Negative for PE Will proceed with a pulse dose steroid 40mg PO daily x4 to treat Myeloma Comments: Echocardiogram report reviewed. EKG reviewed Chest x-ray: report reviewed CT scan - abdomen: report reviewed CT scan - pelvis: report reviewed Assessment and Plan Dyspnea CTA Neg Probable component of congestive heart failure exacerbation, as well as pleural effusion due to her underlying hematologic condition. - Patient had a chest ultrasound with the site of the pleural effusion marked. - Status Post thoracentesis on 10/08/20. Awaiting Flow report to be scanned in, fluid negative for cytology. Current Visit: Yes Status: Acute Code(s): R06.00 - DYSPNEA, UNSPECIFIED SNOMED Code(s): 680768359 Multiple myeloma - There is concern of light chain deposit, given the appearance of the myocardium on echocardiogram - She is to start on the RVD regimen for myeloma on 10/11/20. - This will also treat any light chain deposition disease in a specific organ. - Status post treatment pulse dose steroid today 40mg po daily x4 days, with PPI Current Visit: Yes Status: Acute Code(s): C90.00 - MULTIPLE MYELOMA NOT HAVING ACHIEVED REMISSION SNOMED Code(s): 261695441 Increased Hemoglobin: - Stop Iron Supplementation Increased LFTs: Worsening likely medication related - Monitor Atrial Tachycardia: - Cardiology is following She is still very weak and if rehab is needed and unable to treat underlying myeloma will plan to continue pulse dose dexamethasone 40mg po daily x4 days, then 4 days off, and repeat. This will mean on 10/18/20 she will be due for another 4 day pulse dose of dexamethasone. May start PO revlimid if accepted and allowed per rehab (ideal for patients overall care). Recommend Nephrology to follow ?Nephrology and GI Evaluation. WIll defer to Primary team. In interim monitor closely labs Review of Neurology note awaiting MRI brain. Plan to restart next pulse dose dexamethasone 40mg daily x4 days Physician Attest: I have completed the full history and physical and agree with the above dictation. Dictated as a scribe
[2020-10-15 09:34] LABS: Albumin 3.3 g/dL (3.5-5.0); Calcium 10.2 mg/dL (8.4-10.2); Magnesium 2.1 mg/dL (1.6-2.3); Potassium 5.4 mmol/L (3.5-5.1); Total Bilirubin 5.2 mg/dL (0.2-1.3); Total Protein 5.8 g/dL (6.3-8.2)
--- NOTE | 2020-10-15 13:07 | P.PN ---
Subjective Progress Note Date: 10/15/20 HISTORY OF PRESENT ILLNESS: Patient examined this morning the bedside. Patient denies chest pain or pressure. She states her shortness of breath has improved. She underwent right thoracentesis yesterday with removal of 750 mL. Echocardiogram completed reveals ejection fraction 45-50%, inferior LV wall hypokinesis and inferior septal LV wall hypokinesis. Moderate generalized pericardial effusion. Blood pressure 124/80. The patient remains on IV Lasix. 10/10/2020 Patient examined this morning. She is sitting up in the chair. She denies chest pain or pressure. She denies shortness of breath. She reports continued lower extremity edema. Telemetry reveals sinus bradycardia with a heart rate in the 50s. Patient did have a pause on telemetry this morning. Blood pressure 103/70. BUN 39. Creatinine 1.06. 10/11/2020 Patient examined this morning at the bedside. Patient denies chest pain or pressure. she denies shortness of breath. She remains on IV Lasix. Creatinine 1.05. She continues to have lower extremity edema. Patient went into second degree heart block yesterday and her metoprolol was discontinued by Dr. Sandhu 10/12/2020 Patient examined this morning at the bedside. Patient denies chest pain or pressure. Denies shortness of breath. She continues to have lower extremity edema. She is on IV lasix. Patient is tachycardic with a heart rate in the 110- 120s. EKG completed and reviewed with Dr. Kim revealing atrial tachycardia. 10/13/2020 Patient examined this point bedside. Patient denies chest pain or pressure. She denies shortness of breath. She remains on nasal cannula with oxygen saturation greater than 92%. Heart rate is better controlled today after initiating low-dose beta josé yesterday. 10/14/2020 Patient examined this morning at the bedside. Patient appears confused this morning. She denies chest pain or pressure. Denies shortness of breath. She continues to have lower extremity edema. Patient fell last night. Brain CT completed which was negative for acute process. Chest x-ray completed reveals cream and we. There is some mild prominence of the pulmonary vascular markings. Consider approaching volume overload. Patient remains on IV Lasix. 10/15/2020 patient examined this morning the bedside. Patient remains confused. She denies chest pain or pressure. She denies shortness of breath. She continues to have lower extremity edema. BNP completed yesterday 28,900. she remains on IV Lasix. BUN 82. Creatinine 1.21. PHYSICAL EXAM: VITAL SIGNS: Reviewed. GENERAL: Well-developed in no acute distress. NECK: Supple. No JVD or thyromegaly LUNGS: Respirations even and unlabored. Lungs diminished to auscultation bilaterally. HEART: Regular rate and rhythm. S1 and S2 heard. EXTREMITIES: Normal range of motion. No clubbing or cyanosis. Peripheral pulses intact. 1-2+ lower extremity edema ASSESSMENT: Moderate generalized pericardial effusion Abnormal troponins, not suggestive of acute coronary syndrome History of multiple myeloma Right pleural effusion, status post thoracentesis Hypertension Hyperlipidemia PLAN: Continue telemetry monitoring Continue current dose of metoprolol Discontinue IV lasix. Begin oral lasix 40mg daily Continue additional cardiac medications Daily weights Accurate I&O Monitor kidney function AFUA hose to bilateral lower extremities Further recommendations pending patient course Nurse practitioner note has been reviewed by physician. Signing provider agrees with the documented findings, assessment, and plan of care. Objective - Vital Signs Vital signs: Vital Signs Temp 97.9 F 10/15/20 08:55 Pulse 67 10/15/20 12:00 Resp 16 10/15/20 12:00 BP 111/71 10/15/20 12:00 Pulse Ox 93 L 10/15/20 12:00 Intake & Output 10/14/20 10/15/20 10/15/20 18:59 06:59 18:59 Intake Total 1200 0 Output Total 2 1202 426 Balance 1198 -1202 -426 Weight 64.1 kg Intake: Oral 1200 0 Output: Urine 1 1200 425 Stool 1 2 1 Other: Voiding Method Bedside Commode Toilet Toilet # Voids 400 1 - Labs CBC & Chem 7: 10/15/20 08:05 10/15/20 08:05 Labs: Abnormal Lab Results - Last 24 Hours (Table) 10/14/20 10/15/20 10/15/20 Range/Units 09:22 08:05 08:05 WBC 11.8 H (3.8-10.6) k/uL RBC 5.74 H (3.80-5.40) m/uL Hgb 17.9 H (11.4-16.0) gm/dL Hct 54.4 H (34.0-46.0) % RDW 16.7 H (11.5-15.5) % Plt Count 143 L (150-450) k/uL Neutrophils # 10.1 H (1.3-7.7) k/uL Lymphocytes # 0.6 L (1.0-4.8) k/uL Sodium 131 L (137-145) mmol/L Potassium 5.4 H (3.5-5.1) mmol/L Chloride 90 L (98-107) mmol/L Carbon Dioxide 35 H (22-30) mmol/L BUN 82 H (7-17) mg/dL Creatinine 1.21 H (0.52-1.04) mg/dL Glucose 101 H (74-99) mg/dL Hemoglobin A1c 6.4 H (4.0-6.0) % Total Bilirubin 5.2 H (0.2-1.3) mg/dL AST 77 H (14-36) U/L ALT 112 H (4-34) U/L Alkaline Phosphatase 173 H (38-126) U/L Lactate Dehydrogenase (313-618) U/L Total Protein 5.8 L (6.3-8.2) g/dL Albumin 3.3 L (3.5-5.0) g/dL 10/15/20 Range/Units 08:05 WBC (3.8-10.6) k/uL RBC (3.80-5.40) m/uL Hgb (11.4-16.0) gm/dL Hct (34.0-46.0) % RDW (11.5-15.5) % Plt Count (150-450) k/uL Neutrophils # (1.3-7.7) k/uL Lymphocytes # (1.0-4.8) k/uL Sodium (137-145) mmol/L Potassium (3.5-5.1) mmol/L Chloride (98-107) mmol/L Carbon Dioxide (22-30) mmol/L BUN (7-17) mg/dL Creatinine (0.52-1.04) mg/dL Glucose (74-99) mg/dL Hemoglobin A1c (4.0-6.0) % Total Bilirubin (0.2-1.3) mg/dL AST (14-36) U/L ALT (4-34) U/L Alkaline Phosphatase (38-126) U/L Lactate Dehydrogenase 1449 H (313-618) U/L Total Protein (6.3-8.2) g/dL Albumin (3.5-5.0) g/dL Microbiology - Last 24 Hours (Table) 10/14/20 00:00 Urine Culture - Preliminary Urine,Voided Gram Neg Bacilli
--- NOTE | 2020-10-15 13:56 | MR ---
MR brain without contrast HISTORY: Left-sided weakness, cerebrovascular accident Multiplanar multisequence imaging obtained through the brain Correlation CT brain 10/13/2020 Periventricular white matter shows confluent and scattered hyperintensity including pericallosal, sub cortical white matter hyperintensities on inversion recovery T2-weighted sequences. There is extensiv e motion on the exam. No restricted diffusion. There is no hemorrhage or hydrocephalus. The corpus ca llosum, pituitary, cervical medullary junction, cerebellopontine angles are within normal limits. The re is inflammatory change within the mastoid air cells on the right. There are normal vascular flow v oids. Orbits show symmetric appearance. IMPRESSION: No subacute ischemia is evident. Age-related changes of atrophy and chronic small vessel ischemia. Motion is present on the exam.
[2020-10-15 17:15] LABS: Folate, Serum >24.0 ng/mL
[2020-10-15] MEDS: ENOXAPARIN 40 MG/0.4 ML SYRINGE SQ SCH (20:28)
[2020-10-15] MEDS: ALPRAZolam 0.25 MG TAB PO SCH (20:28)
[2020-10-15 22:59] LABS: % Iron Saturation 34.04 (12.00-45.00)
[2020-10-15 23:07] LABS: Ferritin 142.7 ng/mL (10.0-291.0)
[2020-10-16] MEDS: PANTOPRAZOLE 40 MG TABLET PO SCH ×2 (06:14→17:53)
[2020-10-16] MEDS: ENOXAPARIN 40 MG/0.4 ML SYRINGE SQ SCH (08:58)
[2020-10-16] MEDS: METOPROLOL TARTRATE 12.5 MG TAB PO SCH (08:58)
[2020-10-16] MEDS: FUROSEMIDE 40 MG TAB PO SCH (08:58)
[2020-10-16] MEDS: SERTRALINE 50 MG TAB PO SCH (08:58)
[2020-10-16] MEDS: metOLazone 2.5 MG TAB PO SCH (08:58)
[2020-10-16] MEDS: SPIRONOLACTONE 25 MG TAB PO SCH ×2 (08:59→19:54)
[2020-10-16 10:28] LABS: Anisocytosis Slight; HCT 53.7 % (34.0-46.0); HGB 17.6 gm/dL (11.4-16.0); MCHC 32.8 g/dL (31.0-37.0); MCV 94.6 fL (80.0-100.0); Mean Platelet Volume 9.1; Platelet Count 159 k/uL (150-450); RBC 5.68 m/uL (3.80-5.40); RDW 16.6 % (11.5-15.5)
[2020-10-16 10:44] LABS: Albumin 3.4 g/dL (3.5-5.0); Total Bilirubin 4.2 mg/dL (0.2-1.3); Total Protein 6.1 g/dL (6.3-8.2)
[2020-10-16 10:51] LABS: Potassium 5.4 mmol/L (3.5-5.1)
--- NOTE | 2020-10-16 12:12 | P.PN ---
Subjective Progress Note Date: 10/15/20 This 70-year-old pleasant female patient of Dr. Hand, with underlying history of paraesophageal hiatal hernia and GERD, chronic bronchial asthma, mild intermittent hypertension, hyperlipidemia, and recently diagnosed to have amyloidosis and multiple diet myeloma, through confirmedbone marrow biopsy, 2 weeks ago. He she is supposed to start treatment with Dr. Madrid this 10/11/2020. She also sees Dr. mercer, for what was suspected to be pericardial effusion. She was recently hospitalized, 08/25/2020, for shortness of breath, sees Dr. Soria cardiology and was diagnosed to have an STEMI, in, 07/17/2020, in the clinic in [facility]. She underwent a heart cath, the second time and was found to have nonobstructive CAD, diastolic CHF, EF was documented to be normal that time, and was discharged with Cozaar and Lopressor Lasix and potassium. She was admitted from our facility Jul, 2020, with chronic dyspnea secondary to restrictive cardiomyopathy, pericardial effusion, and pleural effusion, possible to get amyloidosis at that time. She now comes in to the emergency room, which shortness of breath, edema, difficulty of breathing, patient also has anasarca, generalized weakness, and fatigue, patient felt lightheaded and dizzy, patient did not pass out, has diff iculty in ambulating and has difficulty in getting up when she was lowered down to the floor upon her fall, she has no appetite, denies any new weight loss, however she is gaining more weight with edema, her pulse ox at home was around 90% on room air, in the emergency room, she has no leukocytosis, with WBCs 10, hemoglobin is 18.8, creatinine of 0.9, BUN of 36, sodium 136, platelet count is 164 troponin of 0.263, alkaline phosphatase elevated to 19, AST ALT, elevated, total bili elevated 4.4. Consults were made with cardiology, and oncology for the elevated troponin, and amyloidosis, multiple myeloma echocardiogram is requested for pleural effusion,, patient has seen Dr. hills in the past, we will obtain his service, and a thoracic ultrasound 10/10: Patient is found resting comfortably in bed without any acute distress. Patient states that she is breathing better compared to yesterday. Chest CTA yesterday shows no acute PE, cardiomegaly with pericardial effusion and contrast reflux headache veins. Anasarca with small volume abdominal ascites suggested of third spacing. Small to moderate right pleural effusion. She has post thoracentesis. Ejection fraction on echocardiogram showed 45-50%. she remains on IV Lasix. Continues to have 2+ peripheral lower extremity edema. 10/11: Patient is seen today on the cardiac stepdown unit. States that she is feeling much better from yesterday. She is known to have increased lower extremity edema for which Lasix increased. Breathing status is improved today. Patient is followed by oncology, cardiology and pulmonary medicine. Repeat blood work reveals WBC 6.1, hemoglobin 16.3. Platelet count not reported. Sodium 133, potassium 5, chloride 97, CO2 29, BUN 47 and creatinine 1.05. Blood sugar 123. Repeat chest x-ray reveals small right pleural effusion and mildly decreased from 10/08. Cytology is pending. 10/12: Patient is followed by consultants pulmonary medicine, oncology and cardiology. She denies having any chest pain or shortness of breath. She is on IV Lasix. Heart rate is running in the 110 to 120s with atrial tachycardia. Cardiology has added metoprolol 12.5 mg. Patient is worked with physical therapy and she had difficulty with stairs. We will add a consult for Dr. Juan Pablo gordon. At this time patient will consider [facility] but this is complicated because of patient requires chemotherapy and this cannot be postponed, patient will not be able to obtain subacute rehab. Repeat blood work reveals WBC 13.3, hemoglobin 16.8, platelet count 136. Sodium 132, potassium 5.0, chloride 94, CO2 31, BUN 54 and creatinine 1.02. Total bilirubin 2.9, AST 144, ALT 117, alkaline phosphatase 188. Oncology has ordered dexamethasone 40 mg daily for 4 doses. 10/13: Patient has completed course of dexamethasone. Further plan to be determined by oncology. Orthostatics were checked and were negative and patient's nurse will recheck orthostatics this morning. Patient will be placed on Lasix 40 mg IV twice daily. Chest x-ray ordered., Pulse ox 97% on 5 L nasal cannula. Repeat blood work reveals WBC 11.1, hemoglobin 17.6, platelet count 144. Sodium 130, potassium 5.3, chloride 92, CO2 34, BUN 64 creatinine 1.04. Total bilirubin 3.8, AST 119, ALT 125, alkaline phosphatase 187. manager field service is working on discharge planning depending on plan from oncology. Patient may be ready for discharge by tomorrow. 10/14: Cytology from pleural fluid revealed limited hypocellular specimen with rare scattered mesothelial cells and inflammatory cells. Last evening, patient had increased confusion, right lower extremity drift. Repeat CAT scan of the brain was ordered which revealed mild periventricular white matter ischemic type changes. Neurology consult was added. Patient is alert and oriented 3 and answering questions appropriately at this time. Patient noted to have increased weakness to the right lower extremity. She states she has had that since she had a fall in her home about 2 weeks ago. She states she was walking on a wood floor and slipped and fell. She denied having any lightheadedness or dizziness at the time with this. Liver ultrasound revealed At 0.45 cm. Small pericholecystic fluid present. Correlate for cholecystitis. Possible nonobstructing inferior right renal pole renal stone. Repeat chest x-ray reveals cardiomegaly. Small mild prominence of pulmonary vascular markings. Consider approaching volume overload. Oncology is following and patient completed course of steroid, 4 days. Insurance has denied subacute rehab and requiring appeared to care which will be on hold at this time. Patient is not ready for discharge. 10/15: Today, patient is complaining of weakness in her right lower extremity. She has been seen by neurology. She continues to be followed by oncology and cardiology. She underwent carotid study which does not reveal any hemodynamically significant stenosis. MRI of the brain revealed no subacute ischemia. Age related changes of atrophy and chronic small vessel ischemia. Urinalysis was cloudy, leukoesterase moderate, wbc's 22 and Rocephin will be started. Urine culture is in progress. Pleural fluid cultures have been finalized with no growth. WBC 11.8, hemoglobin 17.9 and platelet count 143. Sodium 131, potassium 5.4, chloride 90, CO2 35, BUN 82 and creatinine 1.21. He moglobin A1c was 6.4. Magnesium 2.1. Iron 112, TIBC 329, iron saturation 34.04. Ferritin 142.7. Total bilirubin 5.2, AST 77, ALT 112, alkaline phosphatase 173. LDH 1449. Patient's insurance has approved her for subacute rehab and oncology is holding chemotherapy while patient gets stronger. Review Of Systems: Constitutional: No fever, no chills, no night sweats. No weight change. No weakness, fatigue or lethargy. No daytime sleepiness. EENT: No headache. No blurred vision or double vision, no loss of vision. No loss of Hearing, no ringing in the ears, no dizziness. No nasal drainage or congestion. No epistaxis. No sore throat. Lungs: Reports shortness of breath improved, cough, no sputum production. No wheezing. Cardiovascular: No chest pain, no lower extremity edema. No palpitations. No paroxysmal nocturnal dyspnea. No orthopnea. No lightheadedness or dizziness. No syncopal episodes. Abdominal: no abdominal discomfort. No nausea, vomiting. no diarrhea. No constipation. No bloody or tarry stools. no loss of appetite. Genitourinary: No dysuria, increased frequency, urgency. No urinary retention. Musculoskeletal: No myalgias. Reports muscle weakness right lower extremities, no gait dysfunction, no frequent falls. No back pain. No neck pain. Integumentary: No wounds, no lesions. No rash or pruritus. No unusual bruising. No change in hair or nails. Neurologic: No aphasia. No facial droop. Reported change in mentation yesterday and last evening. No head injury. No headache. No paralysis. No paresthesia. Psychiatric: No depression. No anxiety. No mood swings. Endocrine: No abnormal blood sugars. No weight change. No excessive sweating or thirst. Physical Exam: General Appearance: Alert, cooperative, no distress, this is a 70-year-old pleasant female appears stated age. Neck HEENT: Supple, no lymphadenopathy, no thyroid enlargement, no carotid bruits. Lungs: Clear to auscultation without crackles or wheezes, diminished no rhonchi, no deformity. Chest Wall: Chest wall normal expansion with deep inspiration no tenderness and no deformity was found on exam, no costochondral pain or discomfort. Heart: Regular rate and rhythm, S1, S2 normal, no murmur, rub or gallop. Back: Symmetric, no curvature, ROM normal, no CVA tenderness. Abdomen: Soft, non-tender, no rebound or rigidity, no hepatosplenomegaly. Extremities: Extremities normal, atraumatic, no cyanosis, 2+ bilateral lower extremity edema Pulses: 2+ and symmetric. Skin: Skin color, texture, tugor normal, no rashes or lesions. Neurologic: Alert oriented x3 cranial nerves II through XII intact, no motor deficit, no abnormal balance or gait. Right lower extremity weakness Assessment/plan: 1. Acute on chronic dyspnea secondary with acute hypoxemic respiratory failure, currently multifactorial to include amyloidosis, with cardiomyopathy, moderate right pleural effusion, and recent diagnosis of pericardial effusion,, consult appreciated by pulmonology, cardiology, and oncology. Patient underwent a thoracentesis with removal of 750 ML's of tarry colored fluid without difficulty. Pathology negative for malignancy. Fluid will be sent for studies. Continue Lasix 40 mg IV 2 times daily, pre-albumin less than 5 2. Elevated troponins which is chronic,. Patient had recent heart catheterization in [place] was reported as negative for obstructive disease 07/2020. Cardiology consult and repeat troponins. Echocardiogram conclusion: EF between 45 and 50%, moderate concentric left ventricular atrophy, moderate generalized pericardial effusion present, right ventricle is mildly enlarged, ileus mildly dilated, mild pulmonary hypertension. Her ventricular systolic pressure measured by Doppler is 39.15 mmHg. 3. Amyloidosis, suspect cardiac cardiac cardiomyopathy, no treatment initiated yet, oncology consult appreciated, 4. Multiple myeloma. Patient completed course of dexamethasone per oncology. 5. Transaminitis with elevated total bili / jaundice possibly secondary to cholecystitis possibly secondary to amyloid as well, 3. Hyperlipidemia. Continue Lipitor 20 mg daily. 4. Hypertension. Continu Lopressor 25 mg twice daily. 5. Hiatal hernia status post robotic-assisted laparoscopic repair of incarcerated paraesophageal hernia in April 2020, stable. 6. Mild intermittent asthma, stable. 7. Gastroesophageal reflux disease and GI prophylaxis. Continue omeprazole 20 g twice daily. 8. Generalized anxiety disorder. Continue Xanax 0.25 mg twice daily. 9. Metabolic encephalopathy most likely secondary to high-dose steroids which have been discontinued. Neurology consult. CAT scan of the brain was negative for acute findings. Carotid ultrasound ordered. 10. Lower extremity weakness. Patient may need CAT scan of the lumbar spine. 11. Acute urinary tract infection. Patient started on Rocephin. 12. DVT prophylaxis. Heparin subcu. 13. GI prophylaxis. Protonix 40 mg CODE STATUS: Full code Discharge plan: Subacute rehab Impression and plan of care have been directed as dictated by the signing physician. Lisa Davis nurse practitioner acting as scribe for signing physician. Objective - Vital Signs Vital signs: Vital Signs Temp 98.6 F 10/16/20 07:40 Pulse 64 10/16/20 07:40 Resp 20 10/16/20 07:40 BP 113/76 10/16/20 07:40 Pulse Ox 94 L 10/16/20 07:40 Intake & Output 10/15/20 10/16/20 10/16/20 18:59 06:59 18:59 Intake Total 0 240 Output Total 1001 501 Balance -1001 -501 240 Weight 63 kg Intake: Oral 0 240 Output: Urine 1000 500 Stool 1 1 Other: Voiding Method Toilet Toilet Toilet # Voids 2 - Labs CBC & Chem 7: 10/16/20 09:52 10/16/20 09:52 Labs: Abnormal Lab Results - Last 24 Hours (Table) 10/14/20 10/15/20 Range/Units 09:22 08:05 Lactate Dehydrogenase 1449 H (313-618) U/L Vitamin B12 2362.0 H (200.0-944.0) pg/mL Microbiology - Last 24 Hours (Table) 10/14/20 00:00 Urine Culture - Preliminary Urine,Voided Gram Neg Bacilli
--- NOTE | 2020-10-16 12:19 | P.PN ---
Subjective Progress Note Date: 10/16/20 This 70-year-old pleasant female patient of Dr. Hand, with underlying history of paraesophageal hiatal hernia and GERD, chronic bronchial asthma, mild intermittent hypertension, hyperlipidemia, and recently diagnosed to have amyloidosis and multiple diet myeloma, through confirmedbone marrow biopsy, 2 weeks ago. He she is supposed to start treatment with Dr. Madrid this 10/11/2020. She also sees Dr. mercer, for what was suspected to be pericardial effusion. She was recently hospitalized, 08/25/2020, for shortness of breath, sees Dr. Soria cardiology and was diagnosed to have an STEMI, in, 07/17/2020, in the clinic in [facility]. She underwent a heart cath, the second time and was found to have nonobstructive CAD, diastolic CHF, EF was documented to be normal that time, and was discharged with Cozaar and Lopressor Lasix and potassium. She was admitted from our facility Jul, 2020, with chronic dyspnea secondary to restrictive cardiomyopathy, pericardial effusion, and pleural effusion, possible to get amyloidosis at that time. She now comes in to the emergency room, which shortness of breath, edema, difficulty of breathing, patient also has anasarca, generalized weakness, and fatigue, patient felt lightheaded and dizzy, patient did not pass out, has diff iculty in ambulating and has difficulty in getting up when she was lowered down to the floor upon her fall, she has no appetite, denies any new weight loss, however she is gaining more weight with edema, her pulse ox at home was around 90% on room air, in the emergency room, she has no leukocytosis, with WBCs 10, hemoglobin is 18.8, creatinine of 0.9, BUN of 36, sodium 136, platelet count is 164 troponin of 0.263, alkaline phosphatase elevated to 19, AST ALT, elevated, total bili elevated 4.4. Consults were made with cardiology, and oncology for the elevated troponin, and amyloidosis, multiple myeloma echocardiogram is requested for pleural effusion,, patient has seen Dr. hills in the past, we will obtain his service, and a thoracic ultrasound 10/10: Patient is found resting comfortably in bed without any acute distress. Patient states that she is breathing better compared to yesterday. Chest CTA yesterday shows no acute PE, cardiomegaly with pericardial effusion and contrast reflux headache veins. Anasarca with small volume abdominal ascites suggested of third spacing. Small to moderate right pleural effusion. She has post thoracentesis. Ejection fraction on echocardiogram showed 45-50%. she remains on IV Lasix. Continues to have 2+ peripheral lower extremity edema. 10/11: Patient is seen today on the cardiac stepdown unit. States that she is feeling much better from yesterday. She is known to have increased lower extremity edema for which Lasix increased. Breathing status is improved today. Patient is followed by oncology, cardiology and pulmonary medicine. Repeat blood work reveals WBC 6.1, hemoglobin 16.3. Platelet count not reported. Sodium 133, potassium 5, chloride 97, CO2 29, BUN 47 and creatinine 1.05. Blood sugar 123. Repeat chest x-ray reveals small right pleural effusion and mildly decreased from 10/08. Cytology is pending. 10/12: Patient is followed by consultants pulmonary medicine, oncology and cardiology. She denies having any chest pain or shortness of breath. She is on IV Lasix. Heart rate is running in the 110 to 120s with atrial tachycardia. Cardiology has added metoprolol 12.5 mg. Patient is worked with physical therapy and she had difficulty with stairs. We will add a consult for Dr. Juan Pablo gordon. At this time patient will consider [facility] but this is complicated because of patient requires chemotherapy and this cannot be postponed, patient will not be able to obtain subacute rehab. Repeat blood work reveals WBC 13.3, hemoglobin 16.8, platelet count 136. Sodium 132, potassium 5.0, chloride 94, CO2 31, BUN 54 and creatinine 1.02. Total bilirubin 2.9, AST 144, ALT 117, alkaline phosphatase 188. Oncology has ordered dexamethasone 40 mg daily for 4 doses. 10/13: Patient has completed course of dexamethasone. Further plan to be determined by oncology. Orthostatics were checked and were negative and patient's nurse will recheck orthostatics this morning. Patient will be placed on Lasix 40 mg IV twice daily. Chest x-ray ordered., Pulse ox 97% on 5 L nasal cannula. Repeat blood work reveals WBC 11.1, hemoglobin 17.6, platelet count 144. Sodium 130, potassium 5.3, chloride 92, CO2 34, BUN 64 creatinine 1.04. Total bilirubin 3.8, AST 119, ALT 125, alkaline phosphatase 187. event marketing manager is working on discharge planning depending on plan from oncology. Patient may be ready for discharge by tomorrow. 10/14: Cytology from pleural fluid revealed limited hypocellular specimen with rare scattered mesothelial cells and inflammatory cells. Last evening, patient had increased confusion, right lower extremity drift. Repeat CAT scan of the brain was ordered which revealed mild periventricular white matter ischemic type changes. Neurology consult was added. Patient is alert and oriented 3 and answering questions appropriately at this time. Patient noted to have increased weakness to the right lower extremity. She states she has had that since she had a fall in her home about 2 weeks ago. She states she was walking on a wood floor and slipped and fell. She denied having any lightheadedness or dizziness at the time with this. Liver ultrasound revealed At 0.45 cm. Small pericholecystic fluid present. Correlate for cholecystitis. Possible nonobstructing inferior right renal pole renal stone. Repeat chest x-ray reveals cardiomegaly. Small mild prominence of pulmonary vascular markings. Consider approaching volume overload. Oncology is following and patient completed course of steroid, 4 days. Insurance has denied subacute rehab and requiring appeared to care which will be on hold at this time. Patient is not ready for discharge. 10/15: Today, patient is complaining of weakness in her right lower extremity. She has been seen by neurology. She continues to be followed by oncology and cardiology. She underwent carotid study which does not reveal any hemodynamically significant stenosis. MRI of the brain revealed no subacute ischemia. Age related changes of atrophy and chronic small vessel ischemia. Urinalysis was cloudy, leukoesterase moderate, wbc's 22 and Rocephin will be started. Urine culture is in progress. Pleural fluid cultures have been finalized with no growth. WBC 11.8, hemoglobin 17.9 and platelet count 143. Sodium 131, potassium 5.4, chloride 90, CO2 35, BUN 82 and creatinine 1.21. He moglobin A1c was 6.4. Magnesium 2.1. Iron 112, TIBC 329, iron saturation 34.04. Ferritin 142.7. Total bilirubin 5.2, AST 77, ALT 112, alkaline phosphatase 173. LDH 1449. Patient's insurance has approved her for subacute rehab and oncology is holding chemotherapy while patient gets stronger. 10/16: Neurology was concerned that patient had left lower extremity weakness as we had seen right lower extremity weakness yesterday. He is concern for hyper- viscus syndrome and this was discussed with Dr. Madrid and we have ordered discussed a serum but this is not suspected per Dr. Madrid. Today patient is complaining of bilateral lower extremity weakness and MRI of the lumbar spine will be ordered. Lasix is now oral 40 mg daily starting today. Patient is not to receive any iron. She has been afebrile, heart rate 64, blood pressure 113/76, pulse ox 94% on 3 L nasal cannula. She denies having any numbness or tingling. She does complain of pain in her back. Repeat blood work reveals WBC 12.0, hemoglobin 17.6, platelet count 159. Sodium 130, potassium 5.4, chloride 90, CO2 34, BUN 84 and creatinine 0.84. Blood sugar 136. Total bilirubin 4.2, AST 77, ALT 103, alkaline phosphatase 171. Review Of Systems: Constitutional: No fever, no chills, no night sweats. No weight change. No weakness, fatigue or lethargy. No daytime sleepiness. EENT: No headache. No blurred vision or double vision, no loss of vision. No loss of Hearing, no ringing in the ears, no dizziness. No nasal drainage or congestion. No epistaxis. No sore throat. Lungs: Reports shortness of breath improved, cough, no sputum production. No wheezing. Cardiovascular: No chest pain, no lower extremity edema. No palpitations. No paroxysmal nocturnal dyspnea. No orthopnea. No lightheadedness or dizziness. No syncopal episodes. Abdominal: no abdominal discomfort. No nausea, vomiting. no diarrhea. No constipation. No bloody or tarry stools. no loss of appetite. Genitourinary: No dysuria, increased frequency, urgency. No urinary retention. Musculoskeletal: No myalgias. Reports muscle weakness bilateral lower extremities weakness, reports gait dysfunction, no frequent falls. No back pain. No neck pain. Integumentary: No wounds, no lesions. No rash or pruritus. No unusual bruising. No change in hair or nails. Neurologic: No aphasia. No facial droop. Reported change in mentation yesterday and last evening. No head injury. No headache. No paralysis. No paresthesia. Psychiatric: No depression. No anxiety. No mood swings. Endocrine: No abnormal blood sugars. No weight change. No excessive sweating or thirst. Physical Exam: General Appearance: Alert, cooperative, no distress, this is a 70-year-old pleasant female appears stated age. Neck HEENT: Supple, no lymphadenopathy, no thyroid enlargement, no carotid bruits. Lungs: Clear to auscultation without crackles or wheezes, diminished no rhonchi, no deformity. Chest Wall: Chest wall normal expansion with deep inspiration no tenderness and no deformity was found on exam, no costochondral pain or discomfort. Heart: Regular rate and rhythm, S1, S2 normal, no murmur, rub or gallop. Back: Symmetric, no curvature, ROM normal, no CVA tenderness. Abdomen: Soft, non-tender, no rebound or rigidity, no hepatosplenomegaly. Extremities: Extremities normal, atraumatic, no cyanosis, 2+ bilateral lower extremity edema Pulses: 2+ and symmetric. Skin: Skin color, texture, tugor normal, no rashes or lesions. Neurologic: Alert oriented x3 cranial nerves II through XII intact, no motor deficit, no abnormal balance or gait. Bilateral lower extremity weakness Assessment/plan: 1. Acute on chronic dyspnea secondary with acute hypoxemic respiratory failure, currently multifactorial to include amyloidosis, with cardiomyopathy, moderate right pleural effusion, and recent diagnosis of pericardial effusion,, consult appreciated by pulmonology, cardiology, and oncology. Patient underwent a thoracentesis with removal of 750 ML's of tarry colored fluid without difficulty. Pathology negative for malignancy. Fluid will be sent for studies. Continue Lasix 40 mg IV 2 times daily, pre-albumin less than 5 2. Elevated troponins which is chronic,. Patient had recent heart catheterization in [place] was reported as negative for obstructive disease 07/2020. Cardiology consult and repeat troponins. Echocardiogram conclusion: EF between 45 and 50%, moderate concentric left ventricular atrophy, moderate generalized pericardial effusion present, right ventricle is mildly enlarged, ileus mildly dilated, mild pulmonary hypertension. Her ventricular systolic pressure measured by Doppler is 39.15 mmHg. 3. Amyloidosis, suspect cardiac cardiac cardiomyopathy, no treatment initiated yet, oncology consult appreciated, 4. Multiple myeloma. Patient completed course of dexamethasone per oncology. 5. Transaminitis with elevated total bili / jaundice possibly secondary to cholecystitis possibly secondary to amyloid as well, 3. Hyperlipidemia. Continue Lipitor 20 mg daily. 4. Hypertension. Continu Lopressor 25 mg twice daily. 5. Hiatal hernia status post robotic-assisted laparoscopic repair of incarce rated paraesophageal hernia in April 2020, stable. 6. Mild intermittent asthma, stable. 7. Gastroesophageal reflux disease and GI prophylaxis. Continue omeprazole 20 g twice daily. 8. Generalized anxiety disorder. Continue Xanax 0.25 mg twice daily. 9. Metabolic encephalopathy most likely secondary to high-dose steroids which have been discontinued. Neurology consult. CAT scan of the brain was negative for acute findings. Carotid ultrasound ordered. 10. Lower extremity weakness. CAT scan of the lumbar spine. 11. Acute urinary tract infection. Patient started on Rocephin. 12. 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 Discussed with Dr. Madrid. Viscosity serum ordered. 13. DVT prophylaxis. Heparin subcu. 14. GI prophylaxis. Protonix 40 mg CODE STATUS: Full code Discharge plan: [facility] on Sunday Impression and plan of care have been directed as dictated by the signing physician. Lisa Davis nurse practitioner acting as scribe for signing physician. Objective - Vital Signs Vital signs: Vital Signs Temp 98.6 F 10/16/20 07:40 Pulse 64 10/16/20 07:40 Resp 20 10/16/20 07:40 BP 113/76 10/16/20 07:40 Pulse Ox 94 L 10/16/20 07:40 Intake & Output 10/15/20 10/16/20 10/16/20 18:59 06:59 18:59 Intake Total 0 240 Output Total 1001 501 Balance -1001 -501 240 Weight 63 kg Intake: Oral 0 240 Output: Urine 1000 500 Stool 1 1 Other: Voiding Method Toilet Toilet Toilet # Voids 2 - Labs CBC & Chem 7: 10/16/20 09:52 10/16/20 09:52 Labs: Abnormal Lab Results - Last 24 Hours (Table) 10/14/20 10/15/20 Range/Units 09:22 08:05 Lactate Dehydrogenase 1449 H (313-618) U/L Vitamin B12 2362.0 H (200.0-944.0) pg/mL Microbiology - Last 24 Hours (Table) 10/14/20 00:00 Urine Culture - Preliminary Urine,Voided Gram Neg Bacilli
--- NOTE | 2020-10-16 13:22 | P.PN ---
Subjective Progress Note Date: 10/16/20 HISTORY OF PRESENT ILLNESS: Patient examined this morning the bedside. Patient denies chest pain or pressure. She states her shortness of breath has improved. She underwent right thoracentesis yesterday with removal of 750 mL. Echocardiogram completed reveals ejection fraction 45-50%, inferior LV wall hypokinesis and inferior septal LV wall hypokinesis. Moderate generalized pericardial effusion. Blood pressure 124/80. The patient remains on IV Lasix. 10/10/2020 Patient examined this morning. She is sitting up in the chair. She denies chest pain or pressure. She denies shortness of breath. She reports continued lower extremity edema. Telemetry reveals sinus bradycardia with a heart rate in the 50s. Patient did have a pause on telemetry this morning. Blood pressure 103/70. BUN 39. Creatinine 1.06. 10/11/2020 Patient examined this morning at the bedside. Patient denies chest pain or pressure. she denies shortness of breath. She remains on IV Lasix. Creatinine 1.05. She continues to have lower extremity edema. Patient went into second degree heart block yesterday and her metoprolol was discontinued by Dr. Sandhu 10/12/2020 Patient examined this morning at the bedside. Patient denies chest pain or pressure. Denies shortness of breath. She continues to have lower extremity edema. She is on IV lasix. Patient is tachycardic with a heart rate in the 110- 120s. EKG completed and reviewed with Dr. Kim revealing atrial tachycardia. 10/13/2020 Patient examined this point bedside. Patient denies chest pain or pressure. She denies shortness of breath. She remains on nasal cannula with oxygen saturation greater than 92%. Heart rate is better controlled today after initiating low-dose beta josé yesterday. 10/14/2020 Patient examined this morning at the bedside. Patient appears confused this morning. She denies chest pain or pressure. Denies shortness of breath. She continues to have lower extremity edema. Patient fell last night. Brain CT completed which was negative for acute process. Chest x-ray completed reveals cream and we. There is some mild prominence of the pulmonary vascular markings. Consider approaching volume overload. Patient remains on IV Lasix. 10/15/2020 patient examined this morning the bedside. Patient remains confused. She denies chest pain or pressure. She denies shortness of breath. She continues to have lower extremity edema. BNP completed yesterday 28,900. she remains on IV Lasix. BUN 82. Creatinine 1.21. 10/16/2020 Patient examined this morning at the bedside. Patient remains slightly confused. She denies chest pain or pressure. She denies shortness of breath. Patient was transitioned to oral Lasix yesterday. She continues to have lower extremity edema. AFUA hose were placed to bilateral lower extremities. PHYSICAL EXAM: VITAL SIGNS: Reviewed. GENERAL: Well-developed in no acute distress. NECK: Supple. No JVD or thyromegaly LUNGS: Respirations even and unlabored. Lungs diminished to auscultation bilaterally. HEART: Regular rate and rhythm. S1 and S2 heard. EXTREMITIES: Normal range of motion. No clubbing or cyanosis. Peripheral pulses intact. 1-2+ lower extremity edema ASSESSMENT: Moderate generalized pericardial effusion Abnormal troponins, not suggestive of acute coronary syndrome History of multiple myeloma Right pleural effusion, status post thoracentesis Hypertension Hyperlipidemia PLAN: Continue current cardiac medications No further inpatient recognitions from a cardiac standpoint We will sign off. Please reconsult if needed. Nurse practitioner note has been reviewed by physician. Signing provider agrees with the documented findings, assessment, and plan of care. Objective - Vital Signs Vital signs: Vital Signs Temp 98.6 F 10/16/20 07:40 Pulse 64 10/16/20 07:40 Resp 20 10/16/20 07:40 BP 113/76 10/16/20 07:40 Pulse Ox 94 L 10/16/20 07:40 Intake & Output 10/15/20 10/16/20 10/16/20 18:59 06:59 18:59 Intake Total 0 240 Output Total 1001 501 Balance -1001 -501 240 Weight 63 kg Intake: Oral 0 240 Output: Urine 1000 500 Stool 1 1 Other: Voiding Method Toilet Toilet Toilet # Voids 2 # Bowel Movements 0 - Labs CBC & Chem 7: 10/16/20 09:52 10/16/20 09:52 Labs: Abnormal Lab Results - Last 24 Hours (Table) 10/14/20 10/16/20 10/16/20 Range/Units 09:22 09:52 09:52 WBC 12.0 H (3.8-10.6) k/uL RBC 5.68 H (3.80-5.40) m/uL Hgb 17.6 H (11.4-16.0) gm/dL Hct 53.7 H (34.0-46.0) % RDW 16.6 H (11.5-15.5) % Sodium 130 L (137-145) mmol/L Potassium 5.4 H (3.5-5.1) mmol/L Chloride 90 L (98-107) mmol/L Carbon Dioxide 34 H (22-30) mmol/L BUN 84 H (7-17) mg/dL Glucose 136 H (74-99) mg/dL Total Bilirubin 4.2 H (0.2-1.3) mg/dL AST 77 H (14-36) U/L ALT 103 H (4-34) U/L Alkaline Phosphatase 171 H (38-126) U/L Total Protein 6.1 L (6.3-8.2) g/dL Albumin 3.4 L (3.5-5.0) g/dL Vitamin B12 2362.0 H (200.0-944.0) pg/mL Microbiology - Last 24 Hours (Table) 10/14/20 00:00 Urine Culture - Final Urine,Voided Escherichia coli
--- NOTE | 2020-10-16 18:33 | MR ---
EXAMINATION TYPE: MR lumbar spine wo con DATE OF EXAM: 10/16/2020 COMPARISON: None HISTORY: Bilateral leg weakness. Multiplanar multiecho imaging of the lumbar spine without contrast. There is metal artifact from posterior fusion surgery at L4-5. There is 5 mm anterior subluxation of L4 in relation L5. There is small posterior disc bulge at L3-4. There is no lumbar compression fractu re. There is degenerative disc space narrowing from L3 to S1. There is some narrowing of the spinal c anal at L4 level. There is facet arthropathy and lateral recess stenosis at L4-5. There is no lumbar paraspinal mass. I see no focal bone destruction. IMPRESSION: Posterior fusion surgery. First-degree L4-5 spondylolisthesis. Small posterior disc bulging and herni ation at L3-4 and L5-S1. There is some lateral recess stenosis and mild spinal stenosis at L4-5 due t o the subluxation and facet arthropathy.
[2020-10-16] MEDS: ALPRAZolam 0.25 MG TAB PO SCH (19:54)
[2020-10-17] MEDS: PANTOPRAZOLE 40 MG TABLET PO SCH ×2 (06:53→17:03)
[2020-10-17 07:44] LABS: Anisocytosis Slight; HCT 51.8 % (34.0-46.0); MCH 31.1 pg (25.0-35.0); MCHC 32.8 g/dL (31.0-37.0); MCV 94.9 fL (80.0-100.0); Mean Platelet Volume 8.5; Platelet Count 162 k/uL (150-450); RBC 5.46 m/uL (3.80-5.40); RDW 16.7 % (11.5-15.5); WBC 9.7 k/uL (3.8-10.6)
[2020-10-17 07:59] LABS: Calcium 9.9 mg/dL (8.4-10.2); Potassium 4.8 mmol/L (3.5-5.1); Total Bilirubin 3.7 mg/dL (0.2-1.3); Total Protein 5.4 g/dL (6.3-8.2)
[2020-10-17] MEDS: ENOXAPARIN 40 MG/0.4 ML SYRINGE SQ SCH (10:00)
[2020-10-17] MEDS: SERTRALINE 50 MG TAB PO SCH (10:01)
[2020-10-17] MEDS: METOPROLOL TARTRATE 12.5 MG TAB PO SCH (10:01)
[2020-10-17] MEDS: metOLazone 2.5 MG TAB PO SCH (10:01)
[2020-10-17] MEDS: SPIRONOLACTONE 25 MG TAB PO SCH ×2 (10:01→21:16)
[2020-10-17] MEDS: FUROSEMIDE 40 MG TAB PO SCH (10:01)
--- NOTE | 2020-10-17 10:18 | P.PN ---
Subjective Progress Note Date: 10/17/20 The patient is still weak and short of breath, but states that he feels better. Endurance in terms of activity such as going to the bathroom seems to be improved. Objective - Vital Signs Vital signs: Vital Signs Temp 98.0 F 10/17/20 08:00 Pulse 73 10/17/20 08:00 Resp 19 10/17/20 08:00 BP 108/72 10/17/20 08:00 Pulse Ox 94 L 10/17/20 08:00 Intake & Output 10/16/20 10/17/20 10/17/20 18:59 06:59 18:59 Intake Total 720 240 Output Total 175 402 Balance 545 -402 240 Weight 60.3 kg Intake: Oral 720 240 Output: Urine 175 400 Stool 2 Other: Voiding Method Toilet Toilet # Voids 2 1 # Bowel Movements 0 - Constitutional General appearance: Present: no acute distress - EENT Eyes: Present: EOMI ENT: Present: hearing grossly normal, normal oropharynx - Respiratory Respiratory: bilateral: rales - Cardiovascular Rhythm: regular Heart sounds: normal: S1, S2 - Gastrointestinal General gastrointestinal: Present: normal bowel sounds, soft - Neurologic Neurologic: Present: CNII-XII intact - Musculoskeletal Musculoskeletal: Present: generalized weakness, strength equal bilaterally - Psychiatric Psychiatric: Present: A&O x's 3, appropriate affect - Labs CBC & Chem 7: 10/17/20 07:20 10/17/20 07:20 Labs: Abnormal Lab Results - Last 24 Hours (Table) 10/16/20 10/16/20 10/17/20 Range/Units 09:52 09:52 07:20 WBC 12.0 H (3.8-10.6) k/uL RBC 5.68 H 5.46 H (3.80-5.40) m/uL Hgb 17.6 H 17.0 H (11.4-16.0) gm/dL Hct 53.7 H 51.8 H (34.0-46.0) % RDW 16.6 H 16.7 H (11.5-15.5) % Sodium 130 L (137-145) mmol/L Potassium 5.4 H (3.5-5.1) mmol/L Chloride 90 L (98-107) mmol/L Carbon Dioxide 34 H (22-30) mmol/L BUN 84 H (7-17) mg/dL Glucose 136 H (74-99) mg/dL Total Bilirubin 4.2 H (0.2-1.3) mg/dL AST 77 H (14-36) U/L ALT 103 H (4-34) U/L Alkaline Phosphatase 171 H (38-126) U/L Total Protein 6.1 L (6.3-8.2) g/dL Albumin 3.4 L (3.5-5.0) g/dL 10/17/20 Range/Units 07:20 WBC (3.8-10.6) k/uL RBC (3.80-5.40) m/uL Hgb (11.4-16.0) gm/dL Hct (34.0-46.0) % RDW (11.5-15.5) % Sodium 133 L (137-145) mmol/L Potassium (3.5-5.1) mmol/L Chloride 88 L (98-107) mmol/L Carbon Dioxide 41 H* (22-30) mmol/L BUN 76 H (7-17) mg/dL Glucose (74-99) mg/dL Total Bilirubin 3.7 H (0.2-1.3) mg/dL AST 65 H (14-36) U/L ALT 81 H (4-34) U/L Alkaline Phosphatase 161 H (38-126) U/L Total Protein 5.4 L (6.3-8.2) g/dL Albumin 3.0 L (3.5-5.0) g/dL Microbiology - Last 24 Hours (Table) 10/14/20 00:00 Urine Culture - Final Urine,Voided Escherichia coli Assessment and Plan (1) Dyspnea Narrative/Plan: Most likely due to congestive heart failure from diastolic dysfunction. Patient appears to have a myocardial involvement light chains. She is currently on dialysis with slow improvement. Overall however she thinks that she is improved compared to admission. Current Visit: Yes Status: Acute Code(s): R06.00 - DYSPNEA, UNSPECIFIED SNOMED Code(s): 865827270 (2) Multiple myeloma Narrative/Plan: The patient has completed initial 4 days of bolus Decadron. She will start her second course tomorrow. Case discussed in detail with the admitting service. At this time the plan is for the patient go to rehab. They have indicated that the patient will not be able to have Revlimid or Velcade there due to coverage reasons. The patient today herself feels that she may be able to go home. In any case if she does go to rehab, he can still treat her with the bolus steroids. She is able to start her specific regimen. - It was also discussed with the admitting service that high-dose steroid is a standard regimen for myeloma treatment. Therefore the patient is on active treatment currently. Serum viscosity was ordered. If this is significantly elevated and felt to be responsible for her symptoms, and we may have to consider plasmapheresis. Current Visit: Yes Status: Acute Code(s): C90.00 - MULTIPLE MYELOMA NOT HAVING ACHIEVED REMISSION SNOMED Code(s): 180820018
--- NOTE | 2020-10-17 13:16 | P.PN ---
Subjective Progress Note Date: 10/17/20 This 70-year-old pleasant female patient of Dr. Hand, with underlying history of paraesophageal hiatal hernia and GERD, chronic bronchial asthma, mild intermittent hypertension, hyperlipidemia, and recently diagnosed to have amyloidosis and multiple diet myeloma, through confirmedbone marrow biopsy, 2 weeks ago. He she is supposed to start treatment with Dr. Madrid this 10/11/2020. She also sees Dr. mercer, for what was suspected to be pericardial effusion. She was recently hospitalized, 08/25/2020, for shortness of breath, sees Dr. Soria cardiology and was diagnosed to have an STEMI, in, 07/17/2020, in the clinic in [facility]. She underwent a heart cath, the second time and was found to have nonobstructive CAD, diastolic CHF, EF was documented to be normal that time, and was discharged with Cozaar and Lopressor Lasix and potassium. She was admitted from our facility Jul, 2020, with chronic dyspnea secondary to restrictive cardiomyopathy, pericardial effusion, and pleural effusion, possible to get amyloidosis at that time. She now comes in to the emergency room, which shortness of breath, edema, difficulty of breathing, patient also has anasarca, generalized weakness, and fatigue, patient felt lightheaded and dizzy, patient did not pass out, has diff iculty in ambulating and has difficulty in getting up when she was lowered down to the floor upon her fall, she has no appetite, denies any new weight loss, however she is gaining more weight with edema, her pulse ox at home was around 90% on room air, in the emergency room, she has no leukocytosis, with WBCs 10, hemoglobin is 18.8, creatinine of 0.9, BUN of 36, sodium 136, platelet count is 164 troponin of 0.263, alkaline phosphatase elevated to 19, AST ALT, elevated, total bili elevated 4.4. Consults were made with cardiology, and oncology for the elevated troponin, and amyloidosis, multiple myeloma echocardiogram is requested for pleural effusion,, patient has seen Dr. hills in the past, we will obtain his service, and a thoracic ultrasound 10/10: Patient is found resting comfortably in bed without any acute distress. Patient states that she is breathing better compared to yesterday. Chest CTA yesterday shows no acute PE, cardiomegaly with pericardial effusion and contrast reflux headache veins. Anasarca with small volume abdominal ascites suggested of third spacing. Small to moderate right pleural effusion. She has post thoracentesis. Ejection fraction on echocardiogram showed 45-50%. she remains on IV Lasix. Continues to have 2+ peripheral lower extremity edema. 10/11: Patient is seen today on the cardiac stepdown unit. States that she is feeling much better from yesterday. She is known to have increased lower extremity edema for which Lasix increased. Breathing status is improved today. Patient is followed by oncology, cardiology and pulmonary medicine. Repeat blood work reveals WBC 6.1, hemoglobin 16.3. Platelet count not reported. Sodium 133, potassium 5, chloride 97, CO2 29, BUN 47 and creatinine 1.05. Blood sugar 123. Repeat chest x-ray reveals small right pleural effusion and mildly decreased from 10/08. Cytology is pending. 10/12: Patient is followed by consultants pulmonary medicine, oncology and cardiology. She denies having any chest pain or shortness of breath. She is on IV Lasix. Heart rate is running in the 110 to 120s with atrial tachycardia. Cardiology has added metoprolol 12.5 mg. Patient is worked with physical therapy and she had difficulty with stairs. We will add a consult for Dr. Juan Pablo gordon. At this time patient will consider [place] but this is complicated because of patient requires chemotherapy and this cannot be postponed, patient will not be able to obtain subacute rehab. Repeat blood work reveals WBC 13.3, hemoglobin 16.8, platelet count 136. Sodium 132, potassium 5.0, chloride 94, CO2 31, BUN 54 and creatinine 1.02. Total bilirubin 2.9, AST 144, ALT 117, alkaline phosphatase 188. Oncology has ordered dexamethasone 40 mg daily for 4 doses. 10/13: Patient has completed course of dexamethasone. Further plan to be determined by oncology. Orthostatics were checked and were negative and patient's nurse will recheck orthostatics this morning. Patient will be placed on Lasix 40 mg IV twice daily. Chest x-ray ordered., Pulse ox 97% on 5 L nasal cannula. Repeat blood work reveals WBC 11.1, hemoglobin 17.6, platelet count 144. Sodium 130, potassium 5.3, chloride 92, CO2 34, BUN 64 creatinine 1.04. Total bilirubin 3.8, AST 119, ALT 125, alkaline phosphatase 187. swing manager is working on discharge planning depending on plan from oncology. Patient may be ready for discharge by tomorrow. 10/14: Cytology from pleural fluid revealed limited hypocellular specimen with rare scattered mesothelial cells and inflammatory cells. Last evening, patient had increased confusion, right lower extremity drift. Repeat CAT scan of the brain was ordered which revealed mild periventricular white matter ischemic type changes. Neurology consult was added. Patient is alert and oriented 3 and answering questions appropriately at this time. Patient noted to have increased weakness to the right lower extremity. She states she has had that since she had a fall in her home about 2 weeks ago. She states she was walking on a wood floor and slipped and fell. She denied having any lightheadedness or dizziness at the time with this. Liver ultrasound revealed At 0.45 cm. Small pericholecystic fluid present. Correlate for cholecystitis. Possible nonobstructing inferior right renal pole renal stone. Repeat chest x-ray reveals cardiomegaly. Small mild prominence of pulmonary vascular markings. Consider approaching volume overload. Oncology is following and patient completed course of steroid, 4 days. Insurance has denied subacute rehab and requiring appeared to care which will be on hold at this time. Patient is not ready for discharge. 10/15: Today, patient is complaining of weakness in her right lower extremity. She has been seen by neurology. She continues to be followed by oncology and cardiology. She underwent carotid study which does not reveal any hemodynamically significant stenosis. MRI of the brain revealed no subacute ischemia. Age related changes of atrophy and chronic small vessel ischemia. Urinalysis was cloudy, leukoesterase moderate, wbc's 22 and Rocephin will be started. Urine culture is in progress. Pleural fluid cultures have been finalized with no growth. WBC 11.8, hemoglobin 17.9 and platelet count 143. Sodium 131, potassium 5.4, chloride 90, CO2 35, BUN 82 and creatinine 1.21. He moglobin A1c was 6.4. Magnesium 2.1. Iron 112, TIBC 329, iron saturation 34.04. Ferritin 142.7. Total bilirubin 5.2, AST 77, ALT 112, alkaline phosphatase 173. LDH 1449. Patient's insurance has approved her for subacute rehab and oncology is holding chemotherapy while patient gets stronger. 10/16: Neurology was concerned that patient had left lower extremity weakness as we had seen right lower extremity weakness yesterday. He is concern for hyper- viscus syndrome and this was discussed with Dr. Madrid and we have ordered discussed a serum but this is not suspected per Dr. Madrid. Today patient is complaining of bilateral lower extremity weakness and MRI of the lumbar spine will be ordered. Lasix is now oral 40 mg daily starting today. Patient is not to receive any iron. She has been afebrile, heart rate 64, blood pressure 113/76, pulse ox 94% on 3 L nasal cannula. She denies having any numbness or tingling. She does complain of pain in her back. Repeat blood work reveals WBC 12.0, hemoglobin 17.6, platelet count 159. Sodium 130, potassium 5.4, chloride 90, CO2 34, BUN 84 and creatinine 0.84. Blood sugar 136. Total bilirubin 4.2, AST 77, ALT 103, alkaline phosphatase 171. /18: Patient states that she continues to have lower extremity weakness. MRI of the lumbar spine revealed posterior fusion surgery. First degree L4 5 spondylolisthesis. Small posterior disc bulging and herniation at L3 4 and L5- S1. There is some lateral recess stenosis and mild spinal stenosis at L4-5 due to subluxation and facet arthropathy. Consult with orthopedic spine added. Repeat blood work reveals WBC 9.7, hemoglobin 17, platelet count 162. Sodium 133, potassium 4.8, chloride 88, CO2 41, BUN 76 and creatinine 0.95. Blood sugar 89. Patient will start her second course of Decadron tomorrow for multiple myeloma. Patient is followed by oncology and she has completed the first bolus of Decadron for 4 days and will be starting second one tomorrow. Patient has been afebrile, heart rate 73, blood pressure 108/72, pulse ox 94% on 3 L nasal cannula. Patient is not on home oxygen therapy. Review Of Systems: Constitutional: No fever, no chills, no night sweats. No weight change. No weakness, fatigue or lethargy. No daytime sleepiness. EENT: No headache. No blurred vision or double vision, no loss of vision. No loss of Hearing, no ringing in the ears, no dizziness. No nasal drainage or congestion. No epistaxis. No sore throat. Lungs: Reports shortness of breath improving, cough, no sputum production. No wheezing. Cardiovascular: No chest pain, no lower extremity edema. No palpitations. No paroxysmal nocturnal dyspnea. No orthopnea. No lightheadedness or dizziness. No syncopal episodes. Abdominal: no abdominal discomfort. No nausea, vomiting. no diarrhea. No constipation. No bloody or tarry stools. no loss of appetite. Genitourinary: No dysuria, increased frequency, urgency. No urinary retention. Musculoskeletal: No myalgias. Reports muscle weakness bilateral lower extremities weakness, reports gait dysfunction, no frequent falls. No back pain. No neck pain. Integumentary: No wounds, no lesions. No rash or pruritus. No unusual bruising. No change in hair or nails. Neurologic: No aphasia. No facial droop. Reported change in mentation yesterday and last evening. No head injury. No headache. No paralysis. No paresthesia. Psychiatric: No depression. No anxiety. No mood swings. Endocrine: No abnormal blood sugars. No weight change. No excessive sweating or thirst. Physical Exam: General Appearance: Alert, cooperative, no distress, this is a 70-year-old pleasant female appears stated age. Neck HEENT: Supple, no lymphadenopathy, no thyroid enlargement, no carotid bruits. Lungs: Clear to auscultation without crackles or wheezes, diminished no rhonchi, no deformity. Chest Wall: Chest wall normal expansion with deep inspiration no tenderness and no deformity was found on exam, no costochondral pain or discomfort. Heart: Regular rate and rhythm, S1, S2 normal, no murmur, rub or gallop. Back: Symmetric, no curvature, ROM normal, no CVA tenderness. Abdomen: Soft, non-tender, no rebound or rigidity, no hepatosplenomegaly. Extremities: Extremities normal, atraumatic, no cyanosis, 2+ bilateral lower extremity edema Pulses: 2+ and symmetric. Skin: Skin color, texture, tugor normal, no rashes or lesions. Neurologic: Alert oriented x3 cranial nerves II through XII intact, no motor deficit, no abnormal balance or gait. Bilateral lower extremity weakness Assessment/plan: 1. Acute on chronic dyspnea secondary with acute hypoxemic respiratory failure, currently multifactorial to include amyloidosis, with cardiomyopathy, moderate right pleural effusion, acute diastolic heart failure and recent diagnosis of pericardial effusion,, consult appreciated by pulmonology, cardiology, and oncology. Patient underwent a thoracentesis with removal of 750 ML's of tarry colored fluid without difficulty. Pathology negative for malignancy. Continue Lasix 40 mg oral daily 2. Elevated troponins which is chronic,. Patient had recent heart catheterization in [place] was reported as negative for obstructive disease 07/2020. Cardiology consult and repeat troponins. Echocardiogram conclusion: EF between 45 and 50%, moderate concentric left ventricular atrophy, moderate generalized pericardial effusion present, right ventricle is mildly enlarged, ileus mildly dilated, mild pulmonary hypertension. Her ventricular systolic pressure measured by Doppler is 39.15 mmHg. 3. Amyloidosis, suspect cardiac cardiac cardiomyopathy, no treatment initiated yet, oncology consult appreciated, 4. Multiple myeloma. Patient completed course of dexamethasone and will start second course of bolus dexamethasone tomorrow on Sunday. 5. Transaminitis with elevated total bili / jaundice possibly secondary to cholecystitis possibly secondary to amyloid as well, 3. Hyperlipidemia. Continue Lipitor 20 mg daily. 4. Hypertension. Continu Lopressor 25 mg twice daily. 5. Hiatal hernia status post robotic-assisted laparoscopic repair of incarcerated paraesophageal hernia in April 2020, stable. 6. Mild intermittent asthma, stable. 7. Gastroesophageal reflux disease and GI prophylaxis. Continue omeprazole 20 g twice daily. 8. Generalized anxiety disorder. Continue Xanax 0.25 mg twice daily. 9. Metabolic encephalopathy most likely secondary to high-dose steroids which have been discontinued. Neurology consult. CAT scan of the brain was negative for acute findings. Carotid ultrasound ordered. 10. Lower extremity weakness. CAT scan of the lumbar spine. 11. Acute urinary tract infection. Patient started on Rocephin. 12. 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 Discussed with Dr. Madrid. Viscosity serum ordered. 13. DVT prophylaxis. Heparin subcu. 14. GI prophylaxis. Protonix 40 mg CODE STATUS: Full code Discharge plan: [facility] on Sunday Impression and plan of care have been directed as dictated by the signing raghav arias. Lisa Davis nurse practitioner acting as scribe for signing physician. Objective - Vital Signs Vital signs: Vital Signs Temp 98.0 F 10/17/20 08:00 Pulse 73 10/17/20 08:00 Resp 19 10/17/20 08:00 BP 108/72 10/17/20 08:00 Pulse Ox 94 L 10/17/20 08:00 Intake & Output 10/16/20 10/17/20 10/17/20 18:59 06:59 18:59 Intake Total 720 240 Output Total 175 402 Balance 545 -402 240 Weight 60.3 kg Intake: Oral 720 240 Output: Urine 175 400 Stool 2 Other: Voiding Method Toilet Toilet # Voids 2 1 # Bowel Movements 0 - Labs CBC & Chem 7: 10/17/20 07:20 10/17/20 07:20 Labs: Abnormal Lab Results - Last 24 Hours (Table) 10/16/20 10/16/20 10/17/20 Range/Units 09:52 09:52 07:20 WBC 12.0 H (3.8-10.6) k/uL RBC 5.68 H 5.46 H (3.80-5.40) m/uL Hgb 17.6 H 17.0 H (11.4-16.0) gm/dL Hct 53.7 H 51.8 H (34.0-46.0) % RDW 16.6 H 16.7 H (11.5-15.5) % Sodium 130 L (137-145) mmol/L Potassium 5.4 H (3.5-5.1) mmol/L Chloride 90 L (98-107) mmol/L Carbon Dioxide 34 H (22-30) mmol/L BUN 84 H (7-17) mg/dL Glucose 136 H (74-99) mg/dL Total Bilirubin 4.2 H (0.2-1.3) mg/dL AST 77 H (14-36) U/L ALT 103 H (4-34) U/L Alkaline Phosphatase 171 H (38-126) U/L Total Protein 6.1 L (6.3-8.2) g/dL Albumin 3.4 L (3.5-5.0) g/dL 10/17/20 Range/Units 07:20 WBC (3.8-10.6) k/uL RBC (3.80-5.40) m/uL Hgb (11.4-16.0) gm/dL Hct (34.0-46.0) % RDW (11.5-15.5) % Sodium 133 L (137-145) mmol/L Potassium (3.5-5.1) mmol/L Chloride 88 L (98-107) mmol/L Carbon Dioxide 41 H* (22-30) mmol/L BUN 76 H (7-17) mg/dL Glucose (74-99) mg/dL Total Bilirubin 3.7 H (0.2-1.3) mg/dL AST 65 H (14-36) U/L ALT 81 H (4-34) U/L Alkaline Phosphatase 161 H (38-126) U/L Total Protein 5.4 L (6.3-8.2) g/dL Albumin 3.0 L (3.5-5.0) g/dL Microbiology - Last 24 Hours (Table) 10/14/20 00:00 Urine Culture - Final Urine,Voided Escherichia coli
--- NOTE | 2020-10-17 16:59 | P.PN ---
Subjective Progress Note Date: 10/15/20 Patient was seen for a follow-up. Patient is laying comfortably in the bed. Offers no complaints. Denies any headache. Objective - Vital Signs Vital signs: Vital Signs Temp 97.6 F 10/17/20 12:00 Pulse 79 10/17/20 12:00 Resp 18 10/17/20 12:00 BP 112/74 10/17/20 12:00 Pulse Ox 94 L 10/17/20 12:00 Intake & Output 10/16/20 10/17/20 10/17/20 18:59 06:59 18:59 Intake Total 720 480 Output Total 175 402 601 Balance 545 -402 -121 Weight 60.3 kg Intake: Oral 720 480 Output: Urine 175 400 600 Stool 2 1 Other: Voiding Method Toilet Toilet Toilet Diaper Incontinent # Voids 2 1 1 # Bowel Movements 0 - Exam Patient appears slightly tachypneic. Mentation is slightly slow. Speech and language functions are normal. Pupils are round and reacting. Cranial nerves are normal. Muscle strength revealed normal strength in the upper limbs. Today, the right lower extremity definitely appears weaker for hip flexion, as compared to the left. Patient states she does have back issues. - Labs CBC & Chem 7: 10/17/20 07:20 10/17/20 07:20 Labs: Abnormal Lab Results - Last 24 Hours (Table) 10/17/20 10/17/20 Range/Units 07:20 07:20 RBC 5.46 H (3.80-5.40) m/uL Hgb 17.0 H (11.4-16.0) gm/dL Hct 51.8 H (34.0-46.0) % RDW 16.7 H (11.5-15.5) % Sodium 133 L (137-145) mmol/L Chloride 88 L (98-107) mmol/L Carbon Dioxide 41 H* (22-30) mmol/L BUN 76 H (7-17) mg/dL Total Bilirubin 3.7 H (0.2-1.3) mg/dL AST 65 H (14-36) U/L ALT 81 H (4-34) U/L Alkaline Phosphatase 161 H (38-126) U/L Total Protein 5.4 L (6.3-8.2) g/dL Albumin 3.0 L (3.5-5.0) g/dL Assessment and Plan Assessment: * 70-year-old female with diagnosis of multiple myeloma, pericardial effusion, has developed altered mental status, hallucinations, delusions likely due to acute delirium. * Fluctuating neurological signs, unclear etiology. MRI of the brain negative for acute stroke. Rule out sludging from ? Hyperviscosity from myeloma. * Multiple myeloma. * Pericardial effusion * Hypertension Plan: * MRI of the brain revealed no acute stroke. Age-related changes of atrophy and chronic small vessel ischemic change. * Carotid Doppler showed antegrade flow in the vertebral arteries. There is less than 15% stenosis in both ICA. About 2 cm solid nodule in the left thyroid lobe. This will be addressed by IM. * 2-D echo on 10/08/2020 showed normal left-ventricular size. Moderate concentric LVH. EF is between 45-50%. Basal inferior, basal inferior septal left-ventricular wall motion is hypokinetic. Left atrium is mildly dilated. Trace to mild AR. There is moderate, generalized pericardial effusion. * B12 2362, folate > 24.0, MMA pending, A1c 6.4. * Consider starting antiplatelet medication aspirin if no medical contr aindication. * DVT prophylaxis with Lovenox. * Discussed with Dr Alcazar.
[2020-10-17] MEDS: ALPRAZolam 0.25 MG TAB PO SCH (21:16)
--- NOTE | 2020-10-18 00:01 | P.PN ---
Subjective Progress Note Date: 10/17/20 Patient was seen for a follow-up by tele-neurology, today on 10/17/2020. Patient is laying comfortably in the bed. Appears somewhat nervous. Offers no complaints. Denies any headache. Objective - Vital Signs Vital signs: Vital Signs Temp 96.9 F L 10/17/20 20:00 Pulse 63 10/17/20 20:00 Resp 16 10/17/20 20:00 BP 104/67 10/17/20 20:00 Pulse Ox 95 10/17/20 20:00 Intake & Output 10/17/20 10/17/20 10/18/20 06:59 18:59 06:59 Intake Total 720 Output Total 402 602 301 Balance -402 118 -301 Weight 60.3 kg Intake: Oral 720 Output: Urine 400 600 300 Stool 2 2 1 Other: Voiding Method Toilet Toilet Toilet Diaper Diaper Incontinent Incontinent # Voids 1 1 1 - Exam Patient appears slightly uncomfortable. Mentation is slightly slow. Speech and language functions are normal. Patient knows that she is in [facility] in [facility]. She could not tell the current month or the year. Pupils are round and reacting. - Labs CBC & Chem 7: 10/17/20 07:20 10/17/20 07:20 Labs: Abnormal Lab Results - Last 24 Hours (Table) 10/17/20 10/17/20 Range/Units 07:20 07:20 RBC 5.46 H (3.80-5.40) m/uL Hgb 17.0 H (11.4-16.0) gm/dL Hct 51.8 H (34.0-46.0) % RDW 16.7 H (11.5-15.5) % Sodium 133 L (137-145) mmol/L Chloride 88 L (98-107) mmol/L Carbon Dioxide 41 H* (22-30) mmol/L BUN 76 H (7-17) mg/dL Total Bilirubin 3.7 H (0.2-1.3) mg/dL AST 65 H (14-36) U/L ALT 81 H (4-34) U/L Alkaline Phosphatase 161 H (38-126) U/L Total Protein 5.4 L (6.3-8.2) g/dL Albumin 3.0 L (3.5-5.0) g/dL Assessment and Plan Assessment: * 70-year-old female with diagnosis of multiple myeloma, pericardial effusion, has developed altered mental status, hallucinations, delusions likely due to acute delirium. Corticosteroids can also contribute to delirium. * Fluctuating neurological signs, unclear etiology. MRI of the brain negative for acute stroke. Rule out sludging from ? Hyperviscosity from myeloma. * Multiple myeloma. * Pericardial effusion * Congestive heart failure from diastolic dysfunction * Hypertension Plan: * Patient is currently receiving pulse dose dexamethasone for multiple myeloma. Her delirium could be related to prednisone. * MRI of the brain revealed no acute stroke. Age-related changes of atrophy and chronic small vessel ischemic change. Appreciate hematology input. Serum viscosity has been checked. * MRI of the lumbar spine without contrast only showed posterior fusion surgery. First-degree L4 5 spondylolisthesis. Small posterior bulging disc and herniation at L3 4 and L5-S1. There is some lateral recess stenosis and mild spinal canal stenosis at L4-5 due to subluxation and facet arthropathy. On my review, there is definite significant spinal stenosis at L4 5 level. Orthopedic surgery has also been consulted for spinal stenosis. * Carotid Doppler showed antegrade flow in the vertebral arteries. There is less than 15% stenosis in both ICA. About 2 cm solid nodule in the left thyroid lobe. This will be addressed by IM. * 2-D echo on 10/08/2020 showed normal left-ventricular size. Moderate concentric LVH. EF is between 45-50%. Basal inferior, basal inferior septal left-ventricular wall motion is hypokinetic. Left atrium is mildly dilated. Trace to mild AR. There is moderate, generalized pericardial effusion. * B12 2362, folate > 24.0, MMA pending, A1c 6.4. Ammonia 9 normal. * Consider starting antiplatelet medication aspirin if no medical contraindication. * DVT prophylaxis with Lovenox. * As there is no active neurological issue, neurology will sign off. Dr. Len Cabrera is covering neurology service for morning, in case there is any new neurological concerns.
[2020-10-18] MEDS: PANTOPRAZOLE 40 MG TABLET PO SCH ×2 (06:25→17:10)
[2020-10-18] MEDS: SPIRONOLACTONE 25 MG TAB PO SCH ×2 (09:50→20:53)
[2020-10-18] MEDS: ENOXAPARIN 40 MG/0.4 ML SYRINGE SQ SCH (09:50)
[2020-10-18] MEDS: SERTRALINE 50 MG TAB PO SCH (09:50)
[2020-10-18] MEDS: METOPROLOL TARTRATE 12.5 MG TAB PO SCH (09:50)
[2020-10-18] MEDS: dexAMETHasone 4 MG TAB PO SCH (09:50)
[2020-10-18] MEDS: FUROSEMIDE 40 MG TAB PO SCH (09:50)
[2020-10-18] MEDS: metOLazone 2.5 MG TAB PO SCH (09:51)
--- NOTE | 2020-10-18 10:52 | P.PN ---
Subjective Progress Note Date: 10/18/20 Principal diagnosis: Multiple Myeloma, Respiratory Insufficiency Patient seen and examined this am, sitting up in chair and feeling better. She has started second round of pulse dose steroid treatment for her recent multiple myeloma diagnosis. She appears to be increasing her strength therefore hopefully we can opt to discharge with an option which would allow for continuing t reatment. Objective - Vital Signs Vital signs: Vital Signs Temp 97.0 F L 10/18/20 03:33 Pulse 79 10/18/20 03:33 Resp 17 10/18/20 03:33 BP 94/60 10/18/20 03:33 Pulse Ox 92 L 10/18/20 03:33 Intake & Output 10/17/20 10/18/20 10/18/20 18:59 06:59 18:59 Intake Total 720 Output Total 602 601 Balance 118 -601 Weight 60.8 kg Intake: Oral 720 Output: Urine 600 600 Stool 2 1 Other: Voiding Method Toilet Toilet Diaper Diaper Incontinent Incontinent # Voids 1 1 - Exam - Constitutional Patient was laying fairly flat comfortably, but did seem to be at least slightly short of breath while conversing General appearance: no acute distress - EENT Eyes: EOMI, PERRLA ENT: hearing grossly normal, normal oropharynx - Neck Neck: no lymphadenopathy Thyroid: bilateral: normal size - Respiratory Respiratory: right: diminished, rales, increased effort noted - Cardiovascular Rhythm: Tachycardia - Gastrointestinal General gastrointestinal: normal bowel sounds, soft - Integumentary Integumentary: normal - Neurologic Neurologic: CNII-XII intact - Musculoskeletal Musculoskeletal: generalized weakness, strength equal bilaterally - Psychiatric Psychiatric: A&O x's 1, COnfusion - Labs CBC & Chem 7: 10/17/20 07:20 10/17/20 07:20 Assessment and Plan (1) Dyspnea Current Visit: Yes Status: Acute Code(s): R06.00 - DYSPNEA, UNSPECIFIED SNOMED Code(s): 331554047 (2) Multiple myeloma Current Visit: Yes Status: Acute Code(s): C90.00 - MULTIPLE MYELOMA NOT HAVING ACHIEVED REMISSION SNOMED Code(s): 843126093 (3) Congestive heart failure Current Visit: No Status: Acute Code(s): I50.9 - HEART FAILURE, UNSPECIFIED SNOMED Code(s): 02725815 Plan: CTA Negative for PE Will proceed with a pulse dose steroid 40mg PO daily x4 to treat Myeloma Comments: Echocardiogram report reviewed. EKG reviewed Chest x-ray: report reviewed CT scan - abdomen: report reviewed CT scan - pelvis: report reviewed Assessment and Plan Dyspnea - Improving CTA Neg Probable component of congestive heart failure exacerbation, as well as pleural effusion due to her underlying hematologic condition. - Patient had a chest ultrasound with the site of the pleural effusion marked. - Status Post thoracentesis on 10/08/20. Current Visit: Yes Status: Acute Code(s): R06.00 - DYSPNEA, UNSPECIFIED SNOMED Code(s): 634820146 Multiple myeloma - There is concern of light chain deposit, given the appearance of the myocardium on echocardiogram - She is to start on the RVD regimen for myeloma on 10/11/20. - This will also treat any light chain deposition disease in a specific organ. - Status post treatment pulse dose steroid today 40mg po daily x4 days, with PPI, Second round started today 10.19.19 Current Visit: Yes Status: Acute Code(s): C90.00 - MULTIPLE MYELOMA NOT HAVING ACHIEVED REMISSION SNOMED Code(s): 407511488 Increased Hemoglobin: - Iron Supplementation stopped and continue to hold please Atrial Tachycardia: - Cardiology is following PLan: - Await PT/OT and IPR recs regarding discharge recs - If strong enough would prefer option to allow Revlimid/Dexamethasone - If need therapy then will continue on Pulse dose dexamethasone 40mg PO 4 days on, 4 days off Physician Attest: I have completed the full history and physical and developed the above improve and plan: Agree with dictation, dictated as a scribe
--- NOTE | 2020-10-18 10:52 | P.DS ---
Providers Date of admission: 10/07/20 19:24 Expected date of discharge: 10/18/20 Attending physician: Amber Rodriguez Consults: 10/07/20 19:41 Consult Physician Routine Consulting Provider: Paresh Madrid Consult Reason/Comments: Patient known to physician Do you want consulting provider notified?: Yes, Notify in am 10/08/20 12:16 Consult Physician Routine Consulting Provider: Marko Hills Consult Reason/Comments: effusion, SOB amyloidsosi Do you want consulting provider notified?: Yes 10/12/20 14:34 Consult Physician Routine Consulting Provider: Ahmet Chavez Consult Reason/Comments: in[t rehab Do you want consulting provider notified?: Yes 10/13/20 23:01 Consult Physician Routine Consulting Provider: Len Cabrera Consult Reason/Comments: mental status changes, right lower extremity drift Do you want consulting provider notified?: Yes, Notify in am 10/17/20 09:33 Consult Physician Routine Consulting Provider: Reese Ayers Consult Reason/Comments: lower extremity weakness Do you want consulting provider notified?: Yes Primary care physician: [place] [facility] Course: This 70-year-old pleasant female patient of Dr. Hand, with underlying history of paraesophageal hiatal hernia and GERD, chronic bronchial asthma, mild intermittent hypertension, hyperlipidemia, and recently diagnosed to have amyloidosis and multiple diet myeloma, through confirmedbone marrow biopsy, 2 weeks ago. He she is supposed to start treatment with Dr. Madrid this 10/11/2020. She also sees Dr. mercer, for what was suspected to be pericardial effusion. She was recently hospitalized, 08/25/2020, for shortness of breath, sees Dr. Soria cardiology and was diagnosed to have an STEMI, in, 07/17/2020, in the clinic in [facility]. She underwent a heart cath, the second time and was found to have nonobstructive CAD, diastolic CHF, EF was documented to be normal that time, and was discharged with Cozaar and Lopressor Lasix and potassium. She was admitted from our facility Jul, 2020, with chronic dyspnea secondary to restrictive cardiomyopathy, pericardial effusion, and pleural effusion, possible to get amyloidosis at that time. She now comes in to the emergency room, which shortness of breath, edema, difficulty of breathing, patient also has anasarca, generalized weakness, and fatigue, patient felt lightheaded and dizzy, patient did not pass out, has difficulty in ambulating and has difficulty in getting up when she was lowered down to the floor upon her fall, she has no appetite, denies any new weight loss, however she is gaining more weight with edema, her pulse ox at home was around 90% on room air, in the emergency room, she has no leukocytosis, with WBCs 10, hemoglobin is 18.8, creatinine of 0.9, BUN of 36, sodium 136, platelet count is 164 troponin of 0.263, alkaline phosphatase elevated to 19, AST ALT, elevated, total bili elevated 4.4. Consults were made with cardiology, and oncology for the elevated troponin, and amyloidosis, multiple myeloma echocardiogram is requested for pleural effusion,, patient has seen Dr. hills in the past, we will obtain his service, and a thoracic ultrasound 10/10: Patient is found resting comfortably in bed without any acute distress. Patient states that she is breathing better compared to yesterday. Chest CTA yesterday shows no acute PE, cardiomegaly with pericardial effusion and contrast reflux headache veins. Anasarca with small volume abdominal ascites suggested of third spacing. Small to moderate right pleural effusion. She has post thoracentesis. Ejection fraction on echocardiogram showed 45-50%. she remains on IV Lasix. Continues to have 2+ peripheral lower extremity edema. 10/11: Patient is seen today on the cardiac stepdown unit. States that she is feeling much better from yesterday. She is known to have increased lower extremity edema for which Lasix increased. Breathing status is improved today. Patient is followed by oncology, cardiology and pulmonary medicine. Repeat blood work reveals WBC 6.1, hemoglobin 16.3. Platelet count not reported. Sodium 133, potassium 5, chloride 97, CO2 29, BUN 47 and creatinine 1.05. Blood sugar 123. Repeat chest x-ray reveals small right pleural effusion and mildly decreased from 10/08. Cytology is pending. 10/12: Patient is followed by consultants pulmonary medicine, oncology and cardiology. She denies having any chest pain or shortness of breath. She is on IV Lasix. Heart rate is running in the 110 to 120s with atrial tachycardia. Cardiology has added metoprolol 12.5 mg. Patient is worked with physical therapy and she had difficulty with stairs. We will add a consult for Dr. Chavez. At this time patient will consider [place] but this is complicated be cause of patient requires chemotherapy and this cannot be postponed, patient will not be able to obtain subacute rehab. Repeat blood work reveals WBC 13.3, hemoglobin 16.8, platelet count 136. Sodium 132, potassium 5.0, chloride 94, CO2 31, BUN 54 and creatinine 1.02. Total bilirubin 2.9, AST 144, ALT 117, alkaline phosphatase 188. Oncology has ordered dexamethasone 40 mg daily for 4 doses. 10/13: Patient has completed course of dexamethasone. Further plan to be determined by oncology. Orthostatics were checked and were negative and patient's nurse will recheck orthostatics this morning. Patient will be placed on Lasix 40 mg IV twice daily. Chest x-ray ordered., Pulse ox 97% on 5 L nasal cannula. Repeat blood work reveals WBC 11.1, hemoglobin 17.6, platelet count 144. Sodium 130, potassium 5.3, chloride 92, CO2 34, BUN 64 creatinine 1.04. Total bilirubin 3.8, AST 119, ALT 125, alkaline phosphatase 187. classified advertising manager is working on discharge planning depending on plan from oncology. Patient may be ready for discharge by tomorrow. 10/14: Cytology from pleural fluid revealed limited hypocellular specimen with rare scattered mesothelial cells and inflammatory cells. Last evening, patient had increased confusion, right lower extremity drift. Repeat CAT scan of the brain was ordered which revealed mild periventricular white matter ischemic type changes. Neurology consult was added. Patient is alert and oriented 3 and answering questions appropriately at this time. Patient noted to have increased weakness to the right lower extremity. She states she has had that since she had a fall in her home about 2 weeks ago. She states she was walking on a wood floor and slipped and fell. She denied having any lightheadedness or dizziness at the time with this. Liver ultrasound revealed At 0.45 cm. Small pericholecystic fluid present. Correlate for cholecystitis. Possible nonobstructing inferior right renal pole renal stone. Repeat chest x-ray reveals cardiomegaly. Small mild prominence of pulmonary vascular markings. Consider approaching volume overload. Oncology is following and patient completed course of steroid, 4 days. Insurance has denied subacute rehab and requiring appeared to care which will be on hold at this time. Patient is not ready for discharge. 10/15: Today, patient is complaining of weakness in her right lower extremity. She has been seen by neurology. She continues to be followed by oncology and cardiology. She underwent carotid study which does not reveal any hemodynamically significant stenosis. MRI of the brain revealed no subacute ischemia. Age related changes of atrophy and chronic small vessel ischemia. Urinalysis was cloudy, leukoesterase moderate, wbc's 22 and Rocephin will be started. Urine culture is in progress. Pleural fluid cultures have been finalized with no growth. WBC 11.8, hemoglobin 17.9 and platelet count 143. Sodium 131, potassium 5.4, chloride 90, CO2 35, BUN 82 and creatinine 1.21. Hemoglobin A1c was 6.4. Magnesium 2.1. Iron 112, TIBC 329, iron saturation 34.04. Ferritin 142.7. Total bilirubin 5.2, AST 77, ALT 112, alkaline phosphatase 173. LDH 1449. Patient's insurance has approved her for subacute rehab and oncology is holding chemotherapy while patient gets stronger. 10/16: Neurology was concerned that patient had left lower extremity weakness as we had seen right lower extremity weakness yesterday. He is concern for hyper- viscus syndrome and this was discussed with Dr. Madrid and we have ordered discussed a serum but this is not suspected per Dr. Madrid. Today patient is complaining of bilateral lower extremity weakness and MRI of the lumbar spine will be ordered. Lasix is now oral 40 mg daily starting today. Patient is not to receive any iron. She has been afebrile, heart rate 64, blood pressure 113/76, pulse ox 94% on 3 L nasal cannula. She denies having any numbness or tingling. She does complain of pain in her back. Repeat blood work reveals WBC 12.0, hemoglobin 17.6, platelet count 159. Sodium 130, potassium 5.4, chloride 90, CO2 34, BUN 84 and creatinine 0.84. Blood sugar 136. Total bilirubin 4.2, AST 77, ALT 103, alkaline phosphatase 171. 10/17: Patient states that she continues to have lower extremity weakness. MRI of the lumbar spine revealed posterior fusion surgery. First degree L4 5 spondylolisthesis. Small posterior disc bulging and herniation at L3 4 and L5- S1. There is some lateral recess stenosis and mild spinal stenosis at L4-5 due to subluxation and facet arthropathy. Consult with orthopedic spine added. Repeat blood work reveals WBC 9.7, hemoglobin 17, platelet count 162. Sodium 133, potassium 4.8, chloride 88, CO2 41, BUN 76 and creatinine 0.95. Blood sugar 89. Patient will start her second course of Decadron tomorrow for multiple myeloma. Patient is followed by oncology and she has completed the first bolus of Decadron for 4 days and will be starting second one tomorrow. Patient has been afebrile, heart rate 73, blood pressure 108/72, pulse ox 94% on 3 L nasal cannula. Patient is not on home oxygen therapy. 10/18: The patient is seen today in follow-up. She states she is feeling better today and has worked with physical therapy. Patient is seen by orthopedic spine and no plan for any surgical intervention. Recommends conservative treatment and possible pain management follow-up and patient may follow-up with orthopedic spine as needed. Oncology has recommended continuing pulse dose dexamethasone 40 mg oral 4 days on 4 days off. Patient has been afebrile, heart rate 77, blood pressure 97/64, pulse ox 94% on 3 L nasal cannula. Patient will be discharged to [facility] once arrangements are completed. Assessment/plan: 1. Acute on chronic dyspnea secondary with acute hypoxemic respiratory failure, currently multifactorial to include amyloidosis, with cardiomyopathy, moderate right pleural effusion, acute diastolic heart failure and recent diagnosis of pericardial effusion, status post thoracentesis with removal of 750 ML's. Pathology negative for malignancy. 2. Elevated troponins which is chronic. Patient had recent heart catheterization in [place] was reported as negative for obstructive disease 07/2020. Echocardiogram reveals EF between 45 and 50%, moderate concentric left ventricular atrophy, moderate generalized pericardial effusion present, right ventricle is mildly enlarged, ileus mildly dilated, mild pulmonary hypertension. Her ventricular systolic pressure measured by Doppler is 39.15 mmHg. 3. Amyloidosis, suspect cardiac cardiac cardiomyopathy. 4. Multiple myeloma. 5. Transaminitis with elevated total bili / jaundice possibly secondary to cholecystitis possibly secondary to amyloid as well. 3. Hyperlipidemia. 4. Hypertension. 5. Hiatal hernia status post robotic-assisted laparoscopic repair of incarcerated paraesophageal hernia in April 2020, stable. 6. Mild intermittent asthma, stable. 7. Gastroesophageal reflux disease. 8. Generalized anxiety disorder. 9. Metabolic encephalopathy most likely secondary to high-dose steroids which have been discontinued. Dental status is back to baseline. 10. Lower extremity weakness. 11. Acute urinary tract infection. 12. 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 Viscosity serum pending. [facility] Impression and plan of care have been directed as dictated by the signing physician. Lisa Davis nurse practitioner acting as scribe for signing physician. Patient Condition at Discharge: Stable Plan - Discharge Summary Discharge Rx Participant: No New Discharge Prescriptions: New Metoprolol Tartrate [Lopressor] 12.5 mg PO DAILY tab Cefuroxime Axetil [Ceftin] 500 mg PO BID 5 Days #10 tab Dexamethasone [Decadron] 40 mg PO DAILY 12 Days tablet Furosemide [Lasix] 40 mg PO DAILY tab metOLazone [Zaroxolyn] 2.5 mg PO DAILY tab Continue Spironolactone [Aldactone] 25 mg PO BID Sertraline [Zoloft] 50 mg PO DAILY Multivitamins, Thera [Multivitamin (formulary)] 1 tab PO DAILY Omeprazole 20 mg PO BID ALPRAZolam [Xanax] 0.25 mg PO HS #3 tab Discontinued Atorvastatin [Lipitor] 20 mg PO DAILY dexAMETHasone [Dexamethasone] 20 mg PO DIRECTED Lenalidomide [Revlimid] 25 mg PO DIRECTED Ferrous Sulfate [Iron (65 MG Elemental)] 325 mg PO DAILY Metoprolol Tartrate [Lopressor] 25 mg PO BID Discharge Medication List Omeprazole 20 mg PO BID 08/24/20 [History] Multivitamins, Thera [Multivitamin (formulary)] 1 tab PO DAILY 10/07/20 [History] Sertraline [Zoloft] 50 mg PO DAILY 10/07/20 [History] Spironolactone [Aldactone] 25 mg PO BID 10/07/20 [History] ALPRAZolam [Xanax] 0.25 mg PO HS #3 tab 10/18/20 [Rx] Cefuroxime Axetil [Ceftin] 500 mg PO BID 5 Days #10 tab 10/18/20 [Rx] Dexamethasone [Decadron] 40 mg PO DAILY 12 Days tablet 10/18/20 [Rx] Furosemide [Lasix] 40 mg PO DAILY tab 10/18/20 [Rx] Metoprolol Tartrate [Lopressor] 12.5 mg PO DAILY tab 10/18/20 [Rx] metOLazone [Zaroxolyn] 2.5 mg PO DAILY tab 10/18/20 [Rx] Follow up Appointment(s)/Referral(s): Evan Liu MD [Primary Care Provider] - 1 Week (after dc from [facility]) Piyush Villarreal PAC [PHYSICIAN SOLDERER] - As Needed (Patient may follow-up with Piyush Villarreal PA-C or Dr. Mike Ayers at [facility] on an as needed basis following discharge. ) Discharge Disposition: TRANSFER TO SNF/ECF
--- NOTE | 2020-10-18 11:25 | P.CNOR ---
History of Present Illness - [facility] Consult date: 10/18/20 Requesting physician: Lisa Davis Consult reason: other (Lower extremity weakness) History of present illness: Patient is a pleasant 70-year-old female who is seen and examined at bedside for further evaluation in regards to her lumbar spine. Consultation was placed after the patient was expressing some lower extremity weakness. Patient does have a history of previous L4-5 lumbar fusion performed approximately 10 years ago. She does not recall the surgeon's name but states he has moved to [place]. She has not followed up with him recently. She states since being seen and examined yesterday she feels her symptoms overall have improved. She states she has been able to ambulate the hallways with physical therapy today without difficulty. She states when she feels weakness she has generalized weakness of the bilateral lower extremities. She denies specific weakness. She does not experience any lower extremity radiculopathy. She states she is not experienc ing any back pain. She states her previous surgery did provide significant improvement of her symptoms at that time. Lumbar MRI imaging did show significant changes at her lumbar spine at L3-4 and L4-5. Patient is currently being seen exam by multiple medical providers and is currently being treated for multiple myeloma. Medicine is planning for discharge to a rehabilitation facility today. Patient's other medical diagnoses include acute on chronic dyspnea secondary with acute hypoxic respiratory failure, chronic elevated troponins, amyloidosis, hyperlipidemia, hypertension, transaminitis, and metabolic encephalopathy. She has been improving overall since her admittance to the hospital. Past Medical History Past Medical History: Asthma, Chest Pain / Angina, GERD/Reflux, Hyperlipidemia, Hypertension, Myocardial Infarction (VT) Additional Past Medical History / Comment(s): Hiatal Hernia, hx 2 ulcers in sto mach; Bursitis both knees. Hx pancreatitis, SOB w/exertion due to hernia Last Myocardial Infarction Date:: 07/2020 History of Any Multi-Drug Resistant Organisms: None Reported Past Surgical History: Back Surgery, Heart Catheterization, Heart Catheterization With Stent, Hysterectomy, Orthopedic Surgery, Tonsillectomy Additional Past Surgical History / Comment(s): Back surgery with hardware, L carpal tunnel, L foot surgery, Past Anesthesia/Blood Transfusion Reactions: Previous Problems w/ Anesthesia, Motion Sickness, Postoperative Nausea & Vomiting (PONV) Additional Past Anesthesia/Blood Transfusion Reaction / Comm: was told stopped breathing during EGD Date of Last Stent Placement:: unknown Past Psychological History: Depression Smoking Status: Never smoker Past Alcohol Use History: Occasional Past Drug Use History: None Reported - Past Family History Mother Family Medical History: No Reported History, Asthma, Diabetes Mellitus Father Family Medical History: No Reported History Additional Family Medical History / Comment(s): Father lived to be 90yrs. Sister(s) Family Medical History: No Reported History Daughter(s) Family Medical History: No Reported History Medications and Allergies Home Medications Medication Instructions Recorded Confirmed Type Omeprazole 20 mg PO BID 08/24/20 10/07/20 History Multivitamins, Thera [Multivitamin 1 tab PO DAILY 10/07/20 10/07/20 History (formulary)] Sertraline [Zoloft] 50 mg PO DAILY 10/07/20 10/07/20 History Spironolactone [Aldactone] 25 mg PO BID 10/07/20 10/07/20 History ALPRAZolam [Xanax] 0.25 mg PO HS #3 tab 10/18/20 Rx Cefuroxime Axetil [Ceftin] 500 mg PO BID 5 Days #10 tab 10/18/20 Rx Dexamethasone [Decadron] 40 mg PO DAILY 12 Days tablet 10/18/20 Rx Furosemide [Lasix] 40 mg PO DAILY tab 10/18/20 Rx Lenalidomide [Revlimid] 25 mg PO DIRECTED #0 10/18/20 10/07/20 Rx Metoprolol Tartrate [Lopressor] 12.5 mg PO DAILY tab 10/18/20 Rx metOLazone [Zaroxolyn] 2.5 mg PO DAILY tab 10/18/20 Rx Allergies Allergy/AdvReac Type Severity Reaction Status Date / Time No Known Allergies Allergy Verified 10/07/20 19:46 Physical Examination Physical exam: Patient is awake, alert, and oriented 3 Vital signs stable Adequate chest excursion with deep inspiration and expiration Examination of lumbar spine reveals skin is intact with no abrasions, lacerations, or bruises; no erythema, purulence or signs of infection Evidence of a well-healed incision along the lumbar spine Dorsiflexion, plantarflexion, and extensor hallucis longus positive sustained bilaterally Patellar reflex 2+ bilaterally and Achilles reflexes 2+ bilaterally No lower extremity hyperreflexia bilaterally Straight leg test negative bilateral lower extremities She is able to perform independent hip flexion bilaterally Calves are soft bilaterally No pain with internal and external rotation of the hips bilaterally Neurovascularly intact Results Pertinent studies: MRI of the lumbar spine taken on 10/17/2020: L3-4 degenerative disc disease, disc herniation, facet arthropathy, and spondylolisthesis resulting in moderately severe spinal canal stenosis and bilateral neural foraminal stenosis; L4-5 evidence of previous fusion with hardware remaining intact with degenerati ve disc disease, disc herniation, facet arthropathy, and spondylolisthesis resulting in moderately severe spinal canal stenosis and bilateral neural foraminal stenosis - Labs Labs: H & H 10/07/20 10/08/20 10/09/20 Range/Units 17:50 08:06 09:43 Hgb 18.8 H 17.3 H 17.6 H (11.4-16.0) gm/dL Hct 59.3 H* 55.3 H 56.7 H (34.0-46.0) % 10/11/20 10/12/20 10/13/20 Range/Units 05:47 07:24 07:14 Hgb 16.3 H 16.8 H 17.6 H (11.4-16.0) gm/dL Hct 53.5 H 50.9 H 54.1 H (34.0-46.0) % 10/14/20 10/15/20 10/16/20 Range/Units 09:22 08:05 09:52 Hgb 18.1 H 17.9 H 17.6 H (11.4-16.0) gm/dL Hct 55.4 H 54.4 H 53.7 H (34.0-46.0) % 10/17/20 Range/Units 07:20 Hgb 17.0 H (11.4-16.0) gm/dL Hct 51.8 H (34.0-46.0) % Coagulation 10/07/20 Range/Units 18:39 INR 1.3 H (<1.2) Result Diagrams: 10/17/20 07:20 10/17/20 07:20 Assessment and Plan Assessment: Assessment: L4-5 prior lumbar fusion L3-4 and L4-5 spinal canal stenosis L3-4 and L4-5 spondylolisthesis Lumbar degenerative disc disease Lumbar facet arthropathy Myeloma Acute on chronic dyspnea secondary with acute hypoxic respiratory failure Chronic elevated troponins Amyloidosis Hyperlipidemia Hypertension Transaminitis Metabolic encephalopathy (1) Lumbar spinal stenosis Current Visit: Yes Status: Acute Code(s): M48.061 - SPINAL STENOSIS, LUMBAR REGION WITHOUT NEUROGENIC CATY SNOMED Code(s): 54199404 (2) History of lumbar fusion Current Visit: Yes Status: Acute Code(s): Z98.1 - ARTHRODESIS STATUS SNOMED Code(s): 34763619982372 (3) Lumbar degenerative disc disease Current Visit: Yes Status: Acute Code(s): M51.36 - OTHER INTERVERTEBRAL DISC DEGENERATION, LUMBAR REGION SNOMED Code(s): 67202866 (4) Lumbar facet arthropathy Current Visit: Yes Status: Acute Code(s): M47.816 - SPONDYLOSIS W/O MYELOPATHY OR RADICULOPATHY, LUMBAR REGION SNOMED Code(s): 687909887 (5) Spondylolisthesis, lumbar region Current Visit: Yes Status: Acute Code(s): M43.16 - SPONDYLOLISTHESIS, LUMBAR REGION SNOMED Code(s): 799173784212821 (6) Amyloidosis Current Visit: Yes Status: Acute Code(s): E85.9 - AMYLOIDOSIS, UNSPECIFIED SNOMED Code(s): 04383595 (7) Hyperlipidemia Current Visit: Yes Status: Acute Code(s): E78.5 - HYPERLIPIDEMIA, UNSPECIFIED SNOMED Code(s): 86533416 (8) Hypertension Current Visit: Yes Status: Acute Code(s): I10 - ESSENTIAL (PRIMARY) HYPERTENSION SNOMED Code(s): 86383473 (9) Transaminitis Current Visit: Yes Status: Acute Code(s): R74.01 - ELEVATION OF LEVELS OF LIVER TRANSAMINASE LEVELS SNOMED Code(s): 237392708 (10) Metabolic encephalopathy Current Visit: Yes Status: Acute Code(s): G93.41 - METABOLIC ENCEPHALOPATHY SNOMED Code(s): 39704087 (11) Multiple myeloma Current Visit: Yes Status: Acute Code(s): C90.00 - MULTIPLE MYELOMA NOT HAVING ACHIEVED REMISSION SNOMED Code(s): 867291150 Plan: Plan: 1. After further discussion with the patient, physical examination of the patient, and reviewing the imaging, we will currently plan to continue with conservative treatment at this time. She is not currently experiencing any significant lower extremity weakness or radiculopathy bilaterally. Her low back pain is well-controlled. She does have a history of previous lumbar fusion at L4-5. She does have degenerative changes significant at L3-4 and L4-5 spondy lolisthesis and spinal canal stenosis. She was experiencing some generalized weakness of her lower extremities which she states has improved. She is able to ambulate the hallways with physical therapy today. She does not feel she needs any further treatment or evaluation currently regard to her lumbar spine. We did discuss she could continue work to conservative treatment options. If she had exacerbation of her symptoms was experiencing pain she could work through treatment with pain management. If she were to fail conservative treatment options she could also be a candidate for further surgical intervention at her lumbar spine. Given her other significant medical diagnoses including current treatment for multiple myeloma, we are not currently complaining for acute surgical intervention in regards to her lumbar spine. Patient states she would currently like to avoid further surgical intervention at her lumbar spine and agrees with proceeding forward with conservative treatment is a good plan of care. From an orthopedic spine standpoint, patient is clear for discharge. Patient may follow-up with Piyush Villarreal PA-C or Dr. Mike Ayers at [facility] on an as-needed basis following discharge. Time with Patient: Greater than 30 (Including obtaining history, physical examination, reviewing of imaging, and dictation.)
[2020-10-18] MEDS: ACETAMINOPHEN TAB 325 MG TAB PO PRN (15:20)
[2020-10-18] MEDS: ALPRAZolam 0.25 MG TAB PO SCH (20:53)
[2020-10-19] MEDS: PANTOPRAZOLE 40 MG TABLET PO SCH ×2 (06:34→16:54)
[2020-10-19] MEDS: SERTRALINE 50 MG TAB PO SCH (08:23)
[2020-10-19] MEDS: METOPROLOL TARTRATE 12.5 MG TAB PO SCH (08:23)
[2020-10-19] MEDS: metOLazone 2.5 MG TAB PO SCH (08:23)
[2020-10-19] MEDS: dexAMETHasone 4 MG TAB PO SCH (08:23)
[2020-10-19] MEDS: SPIRONOLACTONE 25 MG TAB PO SCH ×2 (08:23→21:31)
[2020-10-19] MEDS: FUROSEMIDE 40 MG TAB PO SCH (08:23)
[2020-10-19] MEDS: ENOXAPARIN 40 MG/0.4 ML SYRINGE SQ SCH (08:23)
--- NOTE | 2020-10-19 14:21 | P.PN ---
Subjective Progress Note Date: 10/18/20 This 70-year-old pleasant female patient of Dr. Hand, with underlying history of paraesophageal hiatal hernia and GERD, chronic bronchial asthma, mild intermittent hypertension, hyperlipidemia, and recently diagnosed to have amyloidosis and multiple diet myeloma, through confirmedbone marrow biopsy, 2 weeks ago. He she is supposed to start treatment with Dr. Madrid this 10/11/2020. She also sees Dr. mercer, for what was suspected to be pericardial effusion. She was recently hospitalized, 08/25/2020, for shortness of breath, sees Dr. Soria cardiology and was diagnosed to have an STEMI, in, 07/17/2020, in the clinic in [facility]. She underwent a heart cath, the second time and was found to have nonobstructive CAD, diastolic CHF, EF was documented to be normal that time, and was discharged with Cozaar and Lopressor Lasix and potassium. She was admitted from our facility Jul, 2020, with chronic dyspnea secondary to restrictive cardiomyopathy, pericardial effusion, and pleural effusion, possible to get amyloidosis at that time. She now comes in to the emergency room, which shortness of breath, edema, difficulty of breathing, patient also has anasarca, generalized weakness, and fatigue, patient felt lightheaded and dizzy, patient did not pass out, has diff iculty in ambulating and has difficulty in getting up when she was lowered down to the floor upon her fall, she has no appetite, denies any new weight loss, however she is gaining more weight with edema, her pulse ox at home was around 90% on room air, in the emergency room, she has no leukocytosis, with WBCs 10, hemoglobin is 18.8, creatinine of 0.9, BUN of 36, sodium 136, platelet count is 164 troponin of 0.263, alkaline phosphatase elevated to 19, AST ALT, elevated, total bili elevated 4.4. Consults were made with cardiology, and oncology for the elevated troponin, and amyloidosis, multiple myeloma echocardiogram is requested for pleural effusion,, patient has seen Dr. hills in the past, we will obtain his service, and a thoracic ultrasound 10/10: Patient is found resting comfortably in bed without any acute distress. Patient states that she is breathing better compared to yesterday. Chest CTA yesterday shows no acute PE, cardiomegaly with pericardial effusion and contrast reflux headache veins. Anasarca with small volume abdominal ascites suggested of third spacing. Small to moderate right pleural effusion. She has post thoracentesis. Ejection fraction on echocardiogram showed 45-50%. she remains on IV Lasix. Continues to have 2+ peripheral lower extremity edema. 10/11: Patient is seen today on the cardiac stepdown unit. States that she is feeling much better from yesterday. She is known to have increased lower extremity edema for which Lasix increased. Breathing status is improved today. Patient is followed by oncology, cardiology and pulmonary medicine. Repeat blood work reveals WBC 6.1, hemoglobin 16.3. Platelet count not reported. Sodium 133, potassium 5, chloride 97, CO2 29, BUN 47 and creatinine 1.05. Blood sugar 123. Repeat chest x-ray reveals small right pleural effusion and mildly decreased from 10/08. Cytology is pending. 10/12: Patient is followed by consultants pulmonary medicine, oncology and cardiology. She denies having any chest pain or shortness of breath. She is on IV Lasix. Heart rate is running in the 110 to 120s with atrial tachycardia. Cardiology has added metoprolol 12.5 mg. Patient is worked with physical therapy and she had difficulty with stairs. We will add a consult for Dr. Juan Pablo gordon. At this time patient will consider [place] but this is complicated because of patient requires chemotherapy and this cannot be postponed, patient will not be able to obtain subacute rehab. Repeat blood work reveals WBC 13.3, hemoglobin 16.8, platelet count 136. Sodium 132, potassium 5.0, chloride 94, CO2 31, BUN 54 and creatinine 1.02. Total bilirubin 2.9, AST 144, ALT 117, alkaline phosphatase 188. Oncology has ordered dexamethasone 40 mg daily for 4 doses. 10/13: Patient has completed course of dexamethasone. Further plan to be determined by oncology. Orthostatics were checked and were negative and patient's nurse will recheck orthostatics this morning. Patient will be placed on Lasix 40 mg IV twice daily. Chest x-ray ordered., Pulse ox 97% on 5 L nasal cannula. Repeat blood work reveals WBC 11.1, hemoglobin 17.6, platelet count 144. Sodium 130, potassium 5.3, chloride 92, CO2 34, BUN 64 creatinine 1.04. Total bilirubin 3.8, AST 119, ALT 125, alkaline phosphatase 187. build manager is working on discharge planning depending on plan from oncology. Patient may be ready for discharge by tomorrow. 10/14: Cytology from pleural fluid revealed limited hypocellular specimen with rare scattered mesothelial cells and inflammatory cells. Last evening, patient had increased confusion, right lower extremity drift. Repeat CAT scan of the brain was ordered which revealed mild periventricular white matter ischemic type changes. Neurology consult was added. Patient is alert and oriented 3 and answering questions appropriately at this time. Patient noted to have increased weakness to the right lower extremity. She states she has had that since she had a fall in her home about 2 weeks ago. She states she was walking on a wood floor and slipped and fell. She denied having any lightheadedness or dizziness at the time with this. Liver ultrasound revealed At 0.45 cm. Small pericholecystic fluid present. Correlate for cholecystitis. Possible nonobstructing inferior right renal pole renal stone. Repeat chest x-ray reveals cardiomegaly. Small mild prominence of pulmonary vascular markings. Consider approaching volume overload. Oncology is following and patient completed course of steroid, 4 days. Insurance has denied subacute rehab and requiring appeared to care which will be on hold at this time. Patient is not ready for discharge. 10/15: Today, patient is complaining of weakness in her right lower extremity. She has been seen by neurology. She continues to be followed by oncology and cardiology. She underwent carotid study which does not reveal any hemodynamically significant stenosis. MRI of the brain revealed no subacute ischemia. Age related changes of atrophy and chronic small vessel ischemia. Urinalysis was cloudy, leukoesterase moderate, wbc's 22 and Rocephin will be started. Urine culture is in progress. Pleural fluid cultures have been finalized with no growth. WBC 11.8, hemoglobin 17.9 and platelet count 143. Sodium 131, potassium 5.4, chloride 90, CO2 35, BUN 82 and creatinine 1.21. He moglobin A1c was 6.4. Magnesium 2.1. Iron 112, TIBC 329, iron saturation 34.04. Ferritin 142.7. Total bilirubin 5.2, AST 77, ALT 112, alkaline phosphatase 173. LDH 1449. Patient's insurance has approved her for subacute rehab and oncology is holding chemotherapy while patient gets stronger. 10/16: Neurology was concerned that patient had left lower extremity weakness as we had seen right lower extremity weakness yesterday. He is concern for hyper- viscus syndrome and this was discussed with Dr. aMdrid and we have ordered discussed a serum but this is not suspected per Dr. Madrid. Today patient is complaining of bilateral lower extremity weakness and MRI of the lumbar spine will be ordered. Lasix is now oral 40 mg daily starting today. Patient is not to receive any iron. She has been afebrile, heart rate 64, blood pressure 113/76, pulse ox 94% on 3 L nasal cannula. She denies having any numbness or tingling. She does complain of pain in her back. Repeat blood work reveals WBC 12.0, hemoglobin 17.6, platelet count 159. Sodium 130, potassium 5.4, chloride 90, CO2 34, BUN 84 and creatinine 0.84. Blood sugar 136. Total bilirubin 4.2, AST 77, ALT 103, alkaline phosphatase 171. 10/17: Patient states that she continues to have lower extremity weakness. MRI of the lumbar spine revealed posterior fusion surgery. First degree L4 5 spondylolisthesis. Small posterior disc bulging and herniation at L3 4 and L5- S1. There is some lateral recess stenosis and mild spinal stenosis at L4-5 due to subluxation and facet arthropathy. Consult with orthopedic spine added. Repeat blood work reveals WBC 9.7, hemoglobin 17, platelet count 162. Sodium 133, potassium 4.8, chloride 88, CO2 41, BUN 76 and creatinine 0.95. Blood sugar 89. Patient will start her second course of Decadron tomorrow for multiple myeloma. Patient is followed by oncology and she has completed the first bolus of Decadron for 4 days and will be starting second one tomorrow. Patient has been afebrile, heart rate 73, blood pressure 108/72, pulse ox 94% on 3 L nasal cannula. Patient is not on home oxygen therapy. 10/18: The patient is seen today in follow-up. She states she is feeling better today and has worked with physical therapy. Patient is seen by orthopedic spine and no plan for any surgical intervention. Recommends conservative treatment and possible pain management follow-up and patient may follow-up with orthopedic spine as needed. Oncology has recommended continuing pulse dose dexamethasone 40 mg oral 4 days on 4 days off. Patient has been afebrile, heart rate 77, blood pressure 97/64, pulse ox 94% on 3 L nasal cannula. Patient will be discharged to [facility] once arrangements are completed. Patient did very well with physical therapy today walking 216 feet. Insurance authorization most likely will be denied and is currently in medical review. Patient is interested in going home versus subacute rehab. Patient will be discharged today in stable condition. Subsequent to that, patient had a fall. Insurance has denied patient subacute rehab at this point patient is not safe to be discharged home. Family is very upset about the current situation. Patient's discharge will be held and patient will be reevaluated tomorrow. 10/19: Patient reevaluated today. Patient is deathly not safe to go home. Patient was unable to do any stairs and would have fallen if staff hadn't been there to help her up. Insurance did deny subacute rehab and will ask for Dr. Chavez to evaluate for and continued to request insurance authorization for subacute rehab as well. Patient is afebrile, heart rate 85, blood pressure 99/64, pulse ox 95% on 3 L nasal cannula. Review Of Systems: Constitutional: No fever, no chills, no night sweats. No weight change. No weakness, fatigue or lethargy. No daytime sleepiness. EENT: No headache. No blurred vision or double vision, no loss of vision. No loss of Hearing, no ringing in the ears, no dizziness. No nasal drainage or congestion. No epistaxis. No sore throat. Lungs: Reports shortness of breath improving, cough, no sputum production. No wheezing. Cardiovascular: No chest pain, no lower extremity edema. No palpitations. No paroxysmal nocturnal dyspnea. No orthopnea. No lightheadedness or dizziness. No syncopal episodes. Abdominal: no abdominal discomfort. No nausea, vomiting. no diarrhea. No constipation. No bloody or tarry stools. no loss of appetite. Genitourinary: No dysuria, increased frequency, urgency. No urinary retention. Musculoskeletal: No myalgias. Reports muscle weakness bilateral lower ext remities weakness, reports gait dysfunction, high risk for falls. No back pain. No neck pain. Integumentary: No wounds, no lesions. No rash or pruritus. No unusual bruising. No change in hair or nails. Neurologic: No aphasia. No facial droop. Reported change in mentation yesterday and last evening. No head injury. No headache. No paralysis. No paresthesia. Psychiatric: No depression. No anxiety. No mood swings. Endocrine: No abnormal blood sugars. No weight change. Physical Exam: General Appearance: Alert, cooperative, no distress, this is a 70-year-old ple asant female appears stated age. Neck HEENT: Supple, no lymphadenopathy, no thyroid enlargement, no carotid bruits. Lungs: Clear to auscultation without crackles or wheezes, diminished no rhonchi, no deformity. Chest Wall: Chest wall normal expansion with deep inspiration no tenderness and no deformity was found on exam, no costochondral pain or discomfort. Heart: Regular rate and rhythm, S1, S2 normal, no murmur, rub or gallop. Back: Symmetric, no curvature, ROM normal, no CVA tenderness. Abdomen: Soft, non-tender, no rebound or rigidity, no hepatosplenomegaly. Extremities: Extremities normal, atraumatic, no cyanosis, 2+ bilateral lower extremity edema Pulses: 2+ and symmetric. Skin: Skin color, texture, tugor normal, no rashes or lesions. Neurologic: Alert oriented x3 cranial nerves II through XII intact, no motor deficit, no abnormal balance or gait. Bilateral lower extremity weakness Assessment/plan: 1. Acute on chronic dyspnea secondary with acute hypoxemic respiratory failure, currently multifactorial to include amyloidosis, with cardiomyopathy, moderate right pleural effusion, acute diastolic heart failure and recent diagnosis of pericardial effusion,, consult appreciated by pulmonology, cardiology, and oncology. Patient underwent a thoracentesis with removal of 750 ML's of tarry colored fluid without difficulty. Pathology negative for malignancy. Continue Lasix 40 mg oral daily 2. Elevated troponins which is chronic,. Patient had recent heart catheterization in [place] was reported as negative for obstructive disease 2020. Cardiology consult and repeat troponins. Echocardiogram conclusion: EF between 45 and 50%, moderate concentric left ventricular atrophy, moderate generalized pericardial effusion present, right ventricle is mildly enlarged, ileus mildly dilated, mild pulmonary hypertension. Her ventricular systolic pressure measured by Doppler is 39.15 mmHg. 3. Amyloidosis, suspect cardiac cardiac cardiomyopathy, no treatment initiated yet, oncology consult appreciated, 4. Multiple myeloma. Patient completed course of dexamethasone and has started second course of dexamethasone 40 mg daily on Wednesday 10/18.. 5. Transaminitis with elevated total bili / jaundice possibly secondary to cholecystitis possibly secondary to amyloid as well, 3. Hyperlipidemia. Continue Lipitor 20 mg daily. 4. Hypertension. Continu Lopressor 25 mg twice daily. 5. Hiatal hernia status post robotic-assisted laparoscopic repair of incarcerated paraesophageal hernia in April 2020, stable. 6. Mild intermittent asthma, stable. 7. Gastroesophageal reflux disease and GI prophylaxis. Continue omeprazole 20 g twice daily. 8. Generalized anxiety disorder. Continue Xanax 0.25 mg twice daily. 9. Metabolic encephalopathy most likely secondary to high-dose steroids which have been discontinued. Neurology consult. CAT scan of the brain was negative for acute findings. Carotid ultrasound ordered. 10. Lower extremity weakness. CAT scan of the lumbar spine. 11. Acute urinary tract infection. Patient started on Rocephin. 12. 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 Discussed with Dr. Madrid. Viscosity serum ordered. 13. DVT prophylaxis. Heparin subcu. 14. GI prophylaxis. Protonix 40 mg CODE STATUS: Full code Discharge plan: [facility] if insurance authorization can be obtained. Consult with Dr. Kathy greene for possible inpatient rehab. Patient is at high risk for falls. Impression and plan of care have been directed as dictated by the signing ph ysician. Lisa Davis nurse practitioner acting as scribe for signing physician. Objective - Vital Signs Vital signs: Vital Signs Temp 97.8 F 10/18/20 08:00 Pulse 77 10/18/20 08:00 Resp 18 10/18/20 08:00 BP 97/64 10/18/20 08:00 Pulse Ox 94 L 10/18/20 08:00 Intake & Output 10/17/20 10/18/20 10/18/20 18:59 06:59 18:59 Intake Total 720 472 Output Total 602 601 251 Balance 118 -601 221 Weight 60.8 kg Intake: Oral 720 472 Output: Urine 600 600 250 Stool 2 1 1 Other: Voiding Method Toilet Toilet Toilet Diaper Diaper Diaper Incontinent Incontinent Incontinent # Voids 1 1 - Labs CBC & Chem 7: 10/17/20 07:20 10/17/20 07:20 Labs: Microbiology - Last 24 Hours (Table) 10/08/20 16:40 Acid Fast Bacilli Smear - Final Pleural Fluid Acid Fast Bacilli Culture - Preliminary
--- NOTE | 2020-10-19 14:43 | P.PN ---
Subjective Progress Note Date: 10/19/20 Principal diagnosis: Multiple Myeloma, Respiratory Insufficiency Seen this am and overall feeling better. Will have Twyla FOllow-up next week to get treatment started Objective - Vital Signs Vital signs: Vital Signs Temp 97.6 F 10/19/20 12:11 Pulse 85 10/19/20 14:00 Resp 16 10/19/20 14:00 BP 99/64 10/19/20 12:11 Pulse Ox 95 10/19/20 12:11 Intake & Output 10/18/20 10/19/20 10/19/20 18:59 06:59 18:59 Intake Total 952 720 Output Total 252 400 Balance 700 320 Weight 62 kg Intake: Oral 952 720 Output: Urine 250 400 Stool 2 Other: Voiding Method Toilet Toilet Toilet Diaper Diaper Diaper Incontinent # Voids 3 2 - Exam - Constitutional Patient was laying fairly flat comfortably, but did seem to be at least slightly short of breath while conversing General appearance: no acute distress - EENT Eyes: EOMI, PERRLA ENT: hearing grossly normal, normal oropharynx - Neck Neck: no lymphadenopathy Thyroid: bilateral: normal size - Respiratory Respiratory: right: diminished, rales, increased effort noted - Cardiovascular Rhythm: Tachycardia - Gastrointestinal General gastrointestinal: normal bowel sounds, soft - Integumentary Integumentary: normal - Neurologic Neurologic: CNII-XII intact - Musculoskeletal Musculoskeletal: generalized weakness, strength equal bilaterally - Psychiatric Psychiatric: A&O x's 1, COnfusion - Labs CBC & Chem 7: 10/17/20 07:20 10/17/20 07:20 Labs: Microbiology - Last 24 Hours (Table) 10/08/20 16:40 Acid Fast Bacilli Smear - Final Pleural Fluid Acid Fast Bacilli Culture - Preliminary Assessment and Plan (1) Dyspnea Current Visit: Yes Status: Acute Code(s): R06.00 - DYSPNEA, UNSPECIFIED SNOMED Code(s): 481535888 (2) Multiple myeloma Current Visit: Yes Status: Acute Code(s): C90.00 - MULTIPLE MYELOMA NOT HAVING ACHIEVED REMISSION SNOMED Code(s): 189462999 (3) Congestive heart failure Current Visit: No Status: Acute Code(s): I50.9 - HEART FAILURE, UNSPECIFIED SNOMED Code(s): 34165470 Plan: CTA Negative for PE Will proceed with a pulse dose steroid 40mg PO daily x4 to treat Myeloma Comments: Echocardiogram report reviewed. EKG reviewed Chest x-ray: report reviewed CT scan - abdomen: report reviewed CT scan - pelvis: report reviewed Assessment and Plan Dyspnea - Improving CTA Neg Probable component of congestive heart failure exacerbation, as well as pleural effusion due to her underlying hematologic condition. - Patient had a chest ultrasound with the site of the pleural effusion marked. - Status Post thoracentesis on 10/08/20. Current Visit: Yes Status: Acute Code(s): R06.00 - DYSPNEA, UNSPECIFIED SNOMED Code(s): 651552674 Multiple myeloma - There is concern of light chain deposit, given the appearance of the myocardium on echocardiogram - She is to start on the RVD regimen for myeloma on 10/11/20. - This will also treat any light chain deposition disease in a specific organ. - Status post treatment pulse dose steroid today 40mg po daily x4 days, with PPI, Second round started today 10.19.19 Current Visit: Yes Status: Acute Code(s): C90.00 - MULTIPLE MYELOMA NOT HAVING ACHIEVED REMISSION SNOMED Code(s): 156226197 Increased Hemoglobin: - Iron Supplementation stopped and continue to hold please Atrial Tachycardia: - Cardiology is following PLan: - Will have office call to start treatment - If need therapy then will continue on Pulse dose dexamethasone 40mg PO 4 days on, 4 days off
--- NOTE | 2020-10-19 16:22 | P.PN ---
Progress Note - Text Asked to review patient. She has already been approved for IPR but denied by insurance. PT reports minimal assist for bed mobility and gait 150 feet total, RW, multiple LOBs. Supervision to minimal assist for transfers. OT reports minimal gold for lower dress, toileting, bathing and functional mobility and ADL transfers. Patient still appears to be a IPR candidate. Awaiting result perr to peer.
[2020-10-19] MEDS: ALPRAZolam 0.25 MG TAB PO SCH (21:31)
[2020-10-20] MEDS: PANTOPRAZOLE 40 MG TABLET PO SCH ×2 (06:30→17:43)
[2020-10-20 06:48] LABS: Anisocytosis Slight; HCT 51.7 % (34.0-46.0); HGB 16.7 gm/dL (11.4-16.0); MCH 31.3 pg (25.0-35.0); MCHC 32.3 g/dL (31.0-37.0); MCV 97.1 fL (80.0-100.0); Macrocytosis Slight; Mean Platelet Volume 8.9; Platelet Count 191 k/uL (150-450); RBC 5.33 m/uL (3.80-5.40); RDW 16.6 % (11.5-15.5); WBC 11.8 k/uL (3.8-10.6)
[2020-10-20 07:07] LABS: ALT 100 U/L (4-34); AST 97 U/L (14-36); African American GFR (CKD) >90 (>60 ml/min/1.73 sqM); Albumin 3.2 g/dL (3.5-5.0); Alkaline Phosphatase 176 U/L (38-126); Anion Gap 4 mmol/L; Blood Urea Nitrogen 76 mg/dL (7-17); Calcium 9.8 mg/dL (8.4-10.2); Carbon Dioxide 38 mmol/L (22-30); Chloride 86 mmol/L (98-107); Glucose 128 mg/dL (74-99); Non-African American GFR(CKD) 87 (>60 ml/min/1.73 sqM); Potassium 5.1 mmol/L (3.5-5.1); Sodium 128 mmol/L (137-145); Total Bilirubin 2.8 mg/dL (0.2-1.3); Total Protein 5.7 g/dL (6.3-8.2)
[2020-10-20] MEDS: ENOXAPARIN 40 MG/0.4 ML SYRINGE SQ SCH (10:11)
[2020-10-20] MEDS: SERTRALINE 50 MG TAB PO SCH (10:12)
[2020-10-20] MEDS: metOLazone 2.5 MG TAB PO SCH (10:12)
[2020-10-20] MEDS: METOPROLOL TARTRATE 12.5 MG TAB PO SCH (10:12)
[2020-10-20] MEDS: SPIRONOLACTONE 25 MG TAB PO SCH ×2 (10:12→22:04)
[2020-10-20] MEDS: FUROSEMIDE 40 MG TAB PO SCH (10:12)
[2020-10-20] MEDS: dexAMETHasone 4 MG TAB PO SCH (10:12)
--- NOTE | 2020-10-20 11:59 | P.DS ---
Providers Date of admission: 10/07/20 19:24 Expected date of discharge: 10/20/20 Attending physician: Amber Rodriguez Consults: 10/07/20 19:41 Consult Physician Routine Consulting Provider: Paresh Madrid Consult Reason/Comments: Patient known to physician Do you want consulting provider notified?: Yes, Notify in am 10/08/20 12:16 Consult Physician Routine Consulting Provider: Marko Hills Consult Reason/Comments: effusion, SOB amyloidsosi Do you want consulting provider notified?: Yes 10/12/20 14:34 Consult Physician Routine Consulting Provider: Ahmet Chavez Consult Reason/Comments: in[t rehab Do you want consulting provider notified?: Yes 10/13/20 23:01 Consult Physician Routine Consulting Provider: Len Cabrera Consult Reason/Comments: mental status changes, right lower extremity drift Do you want consulting provider notified?: Yes, Notify in am 10/17/20 09:33 Consult Physician Routine Consulting Provider: Reese Ayers Consult Reason/Comments: lower extremity weakness Do you want consulting provider notified?: Yes 10/19/20 10:13 Consult Physician Routine Consulting Provider: Ahmet Chavez Consult Reason/Comments: inpt rehab Do you want consulting provider notified?: Yes Primary care physician: [facility] Course: This 70-year-old pleasant female patient of Dr. Hand, with underlying history of paraesophageal hiatal hernia and GERD, chronic bronchial asthma, mild intermittent hypertension, hyperlipidemia, and recently diagnosed to have amyloidosis and multiple diet myeloma, through confirmedbone marrow biopsy, 2 weeks ago. He she is supposed to start treatment with Dr. Madrid this 10/11/2020. She also sees Dr. mercer, for what was suspected to be pericardial effusion. She was recently hospitalized, 08/25/2020, for shortness of breath, sees Dr. Soria cardiology and was diagnosed to have an STEMI, in, 07/17/2020, in the clinic in [facility]. She underwent a heart cath, the second time and was found to have nonobstructive CAD, diastolic CHF, EF was documented to be normal that time, and was discharged with Cozaar and Lopressor Lasix and potassium. She was admitted from our facility Jul, 2020, with chronic dyspnea secondary to restrictive cardiomyopathy, pericardial effusion, and pleural effusion, possible to get amyloidosis at that time. She now comes in to the emergency room, which shortness of breath, edema, difficulty of breathing, patient also has anasarca, generalized weakness, and fatigue, patient felt lightheaded and dizzy, patient did not pass out, has difficulty in ambulating and has difficulty in getting up when she was lowered down to the floor upon her fall, she has no appetite, denies any new weight loss, however she is gaining more weight with edema, her pulse ox at home was around 90% on room air, in the emergency room, she has no leukocytosis, with WBCs 10, hemoglobin is 18.8, creatinine of 0.9, BUN of 36, sodium 136, platelet count is 164 troponin of 0.263, alkaline phosphatase elevated to 19, AST ALT, elevated, total bili elevated 4.4. Consults were made with cardiology, and oncology for the elevated troponin, and amyloidosis, multiple myeloma echocardiogram is requested for pleural effusion,, patient has seen Dr. hills in the past, we will obtain his service, and a thoracic ultrasound 10/10: Patient is found resting comfortably in bed without any acute distress. Patient states that she is breathing better compared to yesterday. Chest CTA yesterday shows no acute PE, cardiomegaly with pericardial effusion and contrast reflux headache veins. Anasarca with small volume abdominal ascites suggested of third spacing. Small to moderate right pleural effusion. She has post thoracentesis. Ejection fraction on echocardiogram showed 45-50%. she remains on IV Lasix. Continues to have 2+ peripheral lower extremity edema. 10/11: Patient is seen today on the cardiac stepdown unit. States that she is feeling much better from yesterday. She is known to have increased lower extremity edema for which Lasix increased. Breathing status is improved today. Patient is followed by oncology, cardiology and pulmonary medicine. Repeat blood work reveals WBC 6.1, hemoglobin 16.3. Platelet count not reported. Sodium 133, potassium 5, chloride 97, CO2 29, BUN 47 and creatinine 1.05. Blood sugar 123. Repeat chest x-ray reveals small right pleural effusion and mildly decreased from 10/08. Cytology is pending. 10/12: Patient is followed by consultants pulmonary medicine, oncology and cardiology. She denies having any chest pain or shortness of breath. She is on IV Lasix. Heart rate is running in the 110 to 120s with atrial tachycardia. Cardiology has added metoprolol 12.5 mg. Patient is worked with physical therapy and she had difficulty with stairs. We will add a consult for Dr. Chavez. At this time patient will consider [place] but this is complicated because of patient requires chemotherapy and this cannot be postponed, patient will not be able to obtain subacute rehab. Repeat blood work reveals WBC 13.3, hemoglobin 16.8, platelet count 136. Sodium 132, potassium 5.0, chloride 94, CO 2 31, BUN 54 and creatinine 1.02. Total bilirubin 2.9, AST 144, ALT 117, alkaline phosphatase 188. Oncology has ordered dexamethasone 40 mg daily for 4 doses. 10/13: Patient has completed course of dexamethasone. Further plan to be determined by oncology. Orthostatics were checked and were negative and patient's nurse will recheck orthostatics this morning. Patient will be placed on Lasix 40 mg IV twice daily. Chest x-ray ordered., Pulse ox 97% on 5 L nasal cannula. Repeat blood work reveals WBC 11.1, hemoglobin 17.6, platelet count 144. Sodium 130, potassium 5.3, chloride 92, CO2 34, BUN 64 creatinine 1.04. Total bilirubin 3.8, AST 119, ALT 125, alkaline phosphatase 187. tour manager is working on discharge planning depending on plan from oncology. Patient may be ready for discharge by tomorrow. 10/14: Cytology from pleural fluid revealed limited hypocellular specimen with rare scattered mesothelial cells and inflammatory cells. Last evening, patient had increased confusion, right lower extremity drift. Repeat CAT scan of the brain was ordered which revealed mild periventricular white matter ischemic type changes. Neurology consult was added. Patient is alert and oriented 3 and answering questions appropriately at this time. Patient noted to have increased weakness to the right lower extremity. She states she has had that since she had a fall in her home about 2 weeks ago. She states she was walking on a wood floor and slipped and fell. She denied having any lightheadedness or dizziness at the time with this. Liver ultrasound revealed At 0.45 cm. Small pericholecystic fluid present. Correlate for cholecystitis. Possible nonobstructing inferior right renal pole renal stone. Repeat chest x-ray reveals cardiomegaly. Small mild prominence of pulmonary vascular markings. Consider approaching volume overload. Oncology is following and patient completed course of steroid, 4 days. Insurance has denied subacute rehab and requiring appeared to care which will be on hold at this time. Patient is not ready for discharge. 10/15: Today, patient is complaining of weakness in her right lower extremity. She has been seen by neurology. She continues to be followed by oncology and cardiology. She underwent carotid study which does not reveal any hemodynamically significant stenosis. MRI of the brain revealed no subacute ischemia. Age related changes of atrophy and chronic small vessel ischemia. Urinalysis was cloudy, leukoesterase moderate, wbc's 22 and Rocephin will be started. Urine culture is in progress. Pleural fluid cultures have been finalized with no growth. WBC 11.8, hemoglobin 17.9 and platelet count 143. Sodium 131, potassium 5.4, chloride 90, CO2 35, BUN 82 and creatinine 1.21. Hemoglobin A1c was 6.4. Magnesium 2.1. Iron 112, TIBC 329, iron saturation 34.04. Ferritin 142.7. Total bilirubin 5.2, AST 77, ALT 112, alkaline phosphatase 173. LDH 1449. Patient's insurance has approved her for subacute rehab and oncology is holding chemotherapy while patient gets stronger. 10/16: Neurology was concerned that patient had left lower extremity weakness as we had seen right lower extremity weakness yesterday. He is concern for hyper- viscus syndrome and this was discussed with Dr. Madrid and we have ordered discussed a serum but this is not suspected per Dr. Madrid. Today patient is complaining of bilateral lower extremity weakness and MRI of the lumbar spine will be ordered. Lasix is now oral 40 mg daily starting today. Patient is not to receive any iron. She has been afebrile, heart rate 64, blood pressure 113/76, pulse ox 94% on 3 L nasal cannula. She denies having any numbness or tingling. She does complain of pain in her back. Repeat blood work reveals WBC 12.0, hemoglobin 17.6, platelet count 159. Sodium 130, potassium 5.4, chloride 90, CO2 34, BUN 84 and creatinine 0.84. Blood sugar 136. Total bilirubin 4.2, AST 77, ALT 103, alkaline phosphatase 171. 10/17: Patient states that she continues to have lower extremity weakness. MRI of the lumbar spine revealed posterior fusion surgery. First degree L4 5 spondy lolisthesis. Small posterior disc bulging and herniation at L3 4 and L5-S1. There is some lateral recess stenosis and mild spinal stenosis at L4-5 due to subluxation and facet arthropathy. Consult with orthopedic spine added. Repeat blood work reveals WBC 9.7, hemoglobin 17, platelet count 162. Sodium 133, potassium 4.8, chloride 88, CO2 41, BUN 76 and creatinine 0.95. Blood sugar 89. Patient will start her second course of Decadron tomorrow for multiple myeloma. Patient is followed by oncology and she has completed the first bolus of Decadron for 4 days and will be starting second one tomorrow. Patient has been afebrile, heart rate 73, blood pressure 108/72, pulse ox 94% on 3 L nasal cannula. Patient is not on home oxygen therapy. 10/18: The patient is seen today in follow-up. She states she is feeling better today and has worked with physical therapy. Patient is seen by orthopedic spine and no plan for any surgical intervention. Recommends conservative treatment and possible pain management follow-up and patient may follow-up with orthopedic spine as needed. Oncology has recommended continuing pulse dose dexamethasone 40 mg oral 4 days on 4 days off. Patient has been afebrile, heart rate 77, blood pressure 97/64, pulse ox 94% on 3 L nasal cannula. Patient will be discharged to [facility] once arrangements are completed. 10/19: Patient reevaluated today. Patient is deathly not safe to go home. Patient was unable to do any stairs and would have fallen if staff hadn't been there to help her up. Insurance did deny subacute rehab and will ask for Dr. Chavez to evaluate for and continued to request insurance authorization for subacute rehab as well. Patient is afebrile, heart rate 85, blood pressure 99/64, pulse ox 95% on 3 L nasal cannula. 10/20: Patient is working with physical therapy and continues to be high risk for falls. She is to person with her. Patient has been afebrile, heart rate 77, blood pressure 112/77, pulse ox 95% on 2 L nasal cannula. WBC 11.8, hemoglobin 16.7, platelet count 191. Sodium 128, potassium 5.1, chloride 86, CO2 38, BUN 76 and creatinine 0.69. Blood sugar 128. Total bilirubin 2.8, AST 97, ALT 100, alkaline phosphatase 170s. There to here review his been done with the insurance company and Dr. Liu. Insurance authorization has been verbally obtained, requesting updated therapy notes and patient will be discharged to [facility] once all arrangements are completed. Assessment/plan: 1. Acute on chronic dyspnea secondary with acute hypoxemic respiratory failure, currently multifactorial to include amyloidosis, with cardiomyopathy, moderate right pleural effusion, acute diastolic heart failure and recent diagnosis of pericardial effusion, status post thoracentesis with removal of 750 ML's. Pathology negative for malignancy. 2. Elevated troponins which is chronic. Patient had recent heart catheterization in [place] was reported as negative for obstructive disease 07/2020. Echocardiogram reveals EF between 45 and 50%, moderate concentric left ventricular atrophy, moderate generalized pericardial effusion present, right ventricle is mildly enlarged, ileus mildly dilated, mild pulmonary hypertension. Her ventricular systolic pressure measured by Doppler is 39.15 mmHg. 3. Amyloidosis, suspect cardiac cardiac cardiomyopathy. 4. Multiple myeloma. 5. Transaminitis with elevated total bili / jaundice possibly secondary to cholecystitis possibly secondary to amyloid as well. 3. Hyperlipidemia. 4. Hypertension. 5. Hiatal hernia status post robotic-assisted laparoscopic repair of incarcerated paraesophageal hernia in April 2020, stable. 6. Mild intermittent asthma, stable. 7. Gastroesophageal reflux disease. 8. Generalized anxiety disorder. 9. Metabolic encephalopathy most likely secondary to high-dose steroids which have been discontinued. Dental status is back to baseline. 10. Lower extremity weakness. 11. Acute urinary tract infection. 12. 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 Viscosity serum pending. 13. Chronic hypoxic respiratory failure requiring home oxygen therapy for the intermediate. Discharge plan: [facility] Impression and plan of care have been directed as dictated by the signing physician. Lisa Davis nurse practitioner acting as scribe for signing physician. Patient Condition at Discharge: Stable Plan - Discharge Summary Discharge Rx Participant: No New Discharge Prescriptions: New Metoprolol Tartrate [Lopressor] 12.5 mg PO DAILY tab Cefuroxime Axetil [Ceftin] 500 mg PO BID 5 Days #10 tab Furosemide [Lasix] 40 mg PO DAILY #30 tablet metOLazone 2.5 mg PO DAILY #30 tablet Dexamethasone [Decadron] 4 mg PO DAILY #160 tablet Continue Spironolactone [Aldactone] 25 mg PO BID Sertraline [Zoloft] 50 mg PO DAILY Multivitamins, Thera [Multivitamin (formulary)] 1 tab PO DAILY Omeprazole 20 mg PO BID ALPRAZolam [Xanax] 0.25 mg PO HS #3 tab Discontinued Atorvastatin [Lipitor] 20 mg PO DAILY dexAMETHasone [Dexamethasone] 20 mg PO DIRECTED Lenalidomide [Revlimid] 25 mg PO DIRECTED Ferrous Sulfate [Iron (65 MG Elemental)] 325 mg PO DAILY Metoprolol Tartrate [Lopressor] 25 mg PO BID Discharge Medication List Omeprazole 20 mg PO BID 08/24/20 [History] Multivitamins, Thera [Multivitamin (formulary)] 1 tab PO DAILY 10/07/20 [History] Sertraline [Zoloft] 50 mg PO DAILY 10/07/20 [History] Spironolactone [Aldactone] 25 mg PO BID 10/07/20 [History] ALPRAZolam [Xanax] 0.25 mg PO HS #3 tab 10/18/20 [Rx] Cefuroxime Axetil [Ceftin] 500 mg PO BID 5 Days #10 tab 10/18/20 [Rx] Dexamethasone [Decadron] 4 mg PO DAILY #160 tablet 10/18/20 [Rx] Furosemide [Lasix] 40 mg PO DAILY #30 tablet 10/18/20 [Rx] Metoprolol Tartrate [Lopressor] 12.5 mg PO DAILY tab 10/18/20 [Rx] metOLazone 2.5 mg PO DAILY #30 tablet 10/18/20 [Rx] Follow up Appointment(s)/Referral(s): Paresh Madrid MD [STAFF PHYSICIAN] - 2 Weeks Aging,[place] [facility] [NON-STAFF] - [facility] [NON-STAFF] - Evan Liu MD [Primary Care Provider] - 1 Week () Piyush Villarreal PAC [PHYSICIAN DIRECTOR CAMP] - As Needed (Patient may follow-up with Piyush Villarreal PA-C or Dr. Mike Ayers at [facility] on an as needed basis following discharge. ) [facility], [NON-STAFF] - Discharge/Stand Alone Forms: Who Do I Call?, Help In The Home Discharge Disposition: HOME WITH HOME HEALTH SERVICES
--- NOTE | 2020-10-20 12:02 | P.PN ---
Subjective Progress Note Date: 10/19/20 This 70-year-old pleasant female patient of Dr. Hand, with underlying history of paraesophageal hiatal hernia and GERD, chronic bronchial asthma, mild intermittent hypertension, hyperlipidemia, and recently diagnosed to have amyloidosis and multiple diet myeloma, through confirmedbone marrow biopsy, 2 weeks ago. He she is supposed to start treatment with Dr. Madrid this 10/11/2020. She also sees Dr. mercer, for what was suspected to be pericardial effusion. She was recently hospitalized, 08/25/2020, for shortness of breath, sees Dr. Soria cardiology and was diagnosed to have an STEMI, in, 07/17/2020, in the clinic in [facility]. She underwent a heart cath, the second time and was found to have nonobstructive CAD, diastolic CHF, EF was documented to be normal that time, and was discharged with Cozaar and Lopressor Lasix and potassium. She was admitted from our facility Jul, 2020, with chronic dyspnea secondary to restrictive cardiomyopathy, pericardial effusion, and pleural effusion, possible to get amyloidosis at that time. She now comes in to the emergency room, which shortness of breath, edema, difficulty of breathing, patient also has anasarca, generalized weakness, and fatigue, patient felt lightheaded and dizzy, patient did not pass out, has diff iculty in ambulating and has difficulty in getting up when she was lowered down to the floor upon her fall, she has no appetite, denies any new weight loss, however she is gaining more weight with edema, her pulse ox at home was around 90% on room air, in the emergency room, she has no leukocytosis, with WBCs 10, hemoglobin is 18.8, creatinine of 0.9, BUN of 36, sodium 136, platelet count is 164 troponin of 0.263, alkaline phosphatase elevated to 19, AST ALT, elevated, total bili elevated 4.4. Consults were made with cardiology, and oncology for the elevated troponin, and amyloidosis, multiple myeloma echocardiogram is requested for pleural effusion,, patient has seen Dr. hills in the past, we will obtain his service, and a thoracic ultrasound 10/10: Patient is found resting comfortably in bed without any acute distress. Patient states that she is breathing better compared to yesterday. Chest CTA yesterday shows no acute PE, cardiomegaly with pericardial effusion and contrast reflux headache veins. Anasarca with small volume abdominal ascites suggested of third spacing. Small to moderate right pleural effusion. She has post thoracentesis. Ejection fraction on echocardiogram showed 45-50%. she remains on IV Lasix. Continues to have 2+ peripheral lower extremity edema. 10/11: Patient is seen today on the cardiac stepdown unit. States that she is feeling much better from yesterday. She is known to have increased lower extremity edema for which Lasix increased. Breathing status is improved today. Patient is followed by oncology, cardiology and pulmonary medicine. Repeat blood work reveals WBC 6.1, hemoglobin 16.3. Platelet count not reported. Sodium 133, potassium 5, chloride 97, CO2 29, BUN 47 and creatinine 1.05. Blood sugar 123. Repeat chest x-ray reveals small right pleural effusion and mildly decreased from 10/08. Cytology is pending. 10/12: Patient is followed by consultants pulmonary medicine, oncology and cardiology. She denies having any chest pain or shortness of breath. She is on IV Lasix. Heart rate is running in the 110 to 120s with atrial tachycardia. Cardiology has added metoprolol 12.5 mg. Patient is worked with physical therapy and she had difficulty with stairs. We will add a consult for Dr. Juan Pablo gordon. At this time patient will consider [place] but this is complicated because of patient requires chemotherapy and this cannot be postponed, patient will not be able to obtain subacute rehab. Repeat blood work reveals WBC 13.3, hemoglobin 16.8, platelet count 136. Sodium 132, potassium 5.0, chloride 94, CO2 31, BUN 54 and creatinine 1.02. Total bilirubin 2.9, AST 144, ALT 117, alkaline phosphatase 188. Oncology has ordered dexamethasone 40 mg daily for 4 doses. 10/13: Patient has completed course of dexamethasone. Further plan to be determined by oncology. Orthostatics were checked and were negative and patient's nurse will recheck orthostatics this morning. Patient will be placed on Lasix 40 mg IV twice daily. Chest x-ray ordered., Pulse ox 97% on 5 L nasal cannula. Repeat blood work reveals WBC 11.1, hemoglobin 17.6, platelet count 144. Sodium 130, potassium 5.3, chloride 92, CO2 34, BUN 64 creatinine 1.04. Total bilirubin 3.8, AST 119, ALT 125, alkaline phosphatase 187. manufacturing finance manager is working on discharge planning depending on plan from oncology. Patient may be ready for discharge by tomorrow. 10/14: Cytology from pleural fluid revealed limited hypocellular specimen with rare scattered mesothelial cells and inflammatory cells. Last evening, patient had increased confusion, right lower extremity drift. Repeat CAT scan of the brain was ordered which revealed mild periventricular white matter ischemic type changes. Neurology consult was added. Patient is alert and oriented 3 and answering questions appropriately at this time. Patient noted to have increased weakness to the right lower extremity. She states she has had that since she had a fall in her home about 2 weeks ago. She states she was walking on a wood floor and slipped and fell. She denied having any lightheadedness or dizziness at the time with this. Liver ultrasound revealed At 0.45 cm. Small pericholecystic fluid present. Correlate for cholecystitis. Possible nonobstructing inferior right renal pole renal stone. Repeat chest x-ray reveals cardiomegaly. Small mild prominence of pulmonary vascular markings. Consider approaching volume overload. Oncology is following and patient completed course of steroid, 4 days. Insurance has denied subacute rehab and requiring appeared to care which will be on hold at this time. Patient is not ready for discharge. 10/15: Today, patient is complaining of weakness in her right lower extremity. She has been seen by neurology. She continues to be followed by oncology and cardiology. She underwent carotid study which does not reveal any hemodynamically significant stenosis. MRI of the brain revealed no subacute ischemia. Age related changes of atrophy and chronic small vessel ischemia. Urinalysis was cloudy, leukoesterase moderate, wbc's 22 and Rocephin will be started. Urine culture is in progress. Pleural fluid cultures have been finalized with no growth. WBC 11.8, hemoglobin 17.9 and platelet count 143. Sodium 131, potassium 5.4, chloride 90, CO2 35, BUN 82 and creatinine 1.21. He moglobin A1c was 6.4. Magnesium 2.1. Iron 112, TIBC 329, iron saturation 34.04. Ferritin 142.7. Total bilirubin 5.2, AST 77, ALT 112, alkaline phosphatase 173. LDH 1449. Patient's insurance has approved her for subacute rehab and oncology is holding chemotherapy while patient gets stronger. 10/16: Neurology was concerned that patient had left lower extremity weakness as we had seen right lower extremity weakness yesterday. He is concern for hyper- viscus syndrome and this was discussed with Dr. Madrid and we have ordered discussed a serum but this is not suspected per Dr. Madrid. Today patient is complaining of bilateral lower extremity weakness and MRI of the lumbar spine will be ordered. Lasix is now oral 40 mg daily starting today. Patient is not to receive any iron. She has been afebrile, heart rate 64, blood pressure 113/76, pulse ox 94% on 3 L nasal cannula. She denies having any numbness or tingling. She does complain of pain in her back. Repeat blood work reveals WBC 12.0, hemoglobin 17.6, platelet count 159. Sodium 130, potassium 5.4, chloride 90, CO2 34, BUN 84 and creatinine 0.84. Blood sugar 136. Total bilirubin 4.2, AST 77, ALT 103, alkaline phosphatase 171. 10/17: Patient states that she continues to have lower extremity weakness. MRI of the lumbar spine revealed posterior fusion surgery. First degree L4 5 spondylolisthesis. Small posterior disc bulging and herniation at L3 4 and L5- S1. There is some lateral recess stenosis and mild spinal stenosis at L4-5 due to subluxation and facet arthropathy. Consult with orthopedic spine added. Repeat blood work reveals WBC 9.7, hemoglobin 17, platelet count 162. Sodium 133, potassium 4.8, chloride 88, CO2 41, BUN 76 and creatinine 0.95. Blood sugar 89. Patient will start her second course of Decadron tomorrow for multiple myeloma. Patient is followed by oncology and she has completed the first bolus of Decadron for 4 days and will be starting second one tomorrow. Patient has been afebrile, heart rate 73, blood pressure 108/72, pulse ox 94% on 3 L nasal cannula. Patient is not on home oxygen therapy. 10/18: The patient is seen today in follow-up. She states she is feeling better today and has worked with physical therapy. Patient is seen by orthopedic spine and no plan for any surgical intervention. Recommends conservative treatment and possible pain management follow-up and patient may follow-up with orthopedic spine as needed. Oncology has recommended continuing pulse dose dexamethasone 40 mg oral 4 days on 4 days off. Patient has been afebrile, heart rate 77, blood pressure 97/64, pulse ox 94% on 3 L nasal cannula. Patient will be discharged to [facility] once arrangements are completed. Patient did very well with physical therapy today walking 216 feet. Insurance authorization most likely will be denied and is currently in medical review. Patient is interested in going home versus subacute rehab. Patient will be discharged today in stable condition. Subsequent to that, patient had a fall. Insurance has denied patient subacute rehab at this point patient is not safe to be discharged home. Family is very upset about the current situation. Patient's discharge will be held and patient will be reevaluated tomorrow. 10/19: Patient reevaluated today. Patient is deathly not safe to go home. Patient was unable to do any stairs and would have fallen if staff hadn't been there to help her up. Insurance did deny subacute rehab and will ask for Dr. Chavez to evaluate for and continued to request insurance authorization for subacute rehab as well. Patient is afebrile, heart rate 85, blood pressure 99/64, pulse ox 95% on 3 L nasal cannula. Review Of Systems: Constitutional: No fever, no chills, no night sweats. No weight change. No weakness, fatigue or lethargy. No daytime sleepiness. EENT: No headache. No blurred vision or double vision, no loss of vision. No loss of Hearing, no ringing in the ears, no dizziness. No nasal drainage or congestion. No epistaxis. No sore throat. Lungs: Reports shortness of breath improving, cough, no sputum production. No wheezing. Cardiovascular: No chest pain, no lower extremity edema. No palpitations. No paroxysmal nocturnal dyspnea. No orthopnea. No lightheadedness or dizziness. No syncopal episodes. Abdominal: no abdominal discomfort. No nausea, vomiting. no diarrhea. No constipation. No bloody or tarry stools. no loss of appetite. Genitourinary: No dysuria, increased frequency, urgency. No urinary retention. Musculoskeletal: No myalgias. Reports muscle weakness bilateral lower ext remities weakness, reports gait dysfunction, high risk for falls. No back pain. No neck pain. Integumentary: No wounds, no lesions. No rash or pruritus. No unusual bruising. No change in hair or nails. Neurologic: No aphasia. No facial droop. Reported change in mentation yesterday and last evening. No head injury. No headache. No paralysis. No paresthesia. Psychiatric: No depression. No anxiety. No mood swings. Endocrine: No abnormal blood sugars. No weight change. Physical Exam: General Appearance: Alert, cooperative, no distress, this is a 70-year-old ple asant female appears stated age. Neck HEENT: Supple, no lymphadenopathy, no thyroid enlargement, no carotid bruits. Lungs: Clear to auscultation without crackles or wheezes, diminished no rhonchi, no deformity. Chest Wall: Chest wall normal expansion with deep inspiration no tenderness and no deformity was found on exam, no costochondral pain or discomfort. Heart: Regular rate and rhythm, S1, S2 normal, no murmur, rub or gallop. Back: Symmetric, no curvature, ROM normal, no CVA tenderness. Abdomen: Soft, non-tender, no rebound or rigidity, no hepatosplenomegaly. Extremities: Extremities normal, atraumatic, no cyanosis, 2+ bilateral lower extremity edema Pulses: 2+ and symmetric. Skin: Skin color, texture, tugor normal, no rashes or lesions. Neurologic: Alert oriented x3 cranial nerves II through XII intact, no motor deficit, no abnormal balance or gait. Bilateral lower extremity weakness Assessment/plan: 1. Acute on chronic dyspnea secondary with acute hypoxemic respiratory failure, currently multifactorial to include amyloidosis, with cardiomyopathy, moderate right pleural effusion, acute diastolic heart failure and recent diagnosis of pericardial effusion,, consult appreciated by pulmonology, cardiology, and oncology. Patient underwent a thoracentesis with removal of 750 ML's of tarry colored fluid without difficulty. Pathology negative for malignancy. Continue Lasix 40 mg oral daily 2. Elevated troponins which is chronic,. Patient had recent heart catheterization in [place] was reported as negative for obstructive disease 2020. Cardiology consult and repeat troponins. Echocardiogram conclusion: EF between 45 and 50%, moderate concentric left ventricular atrophy, moderate generalized pericardial effusion present, right ventricle is mildly enlarged, ileus mildly dilated, mild pulmonary hypertension. Her ventricular systolic pressure measured by Doppler is 39.15 mmHg. 3. Amyloidosis, suspect cardiac cardiac cardiomyopathy, no treatment initiated yet, oncology consult appreciated, 4. Multiple myeloma. Patient completed course of dexamethasone and has started second course of dexamethasone 40 mg daily on Wednesday 10/18.. 5. Transaminitis with elevated total bili / jaundice possibly secondary to cholecystitis possibly secondary to amyloid as well, 3. Hyperlipidemia. Continue Lipitor 20 mg daily. 4. Hypertension. Continu Lopressor 25 mg twice daily. 5. Hiatal hernia status post robotic-assisted laparoscopic repair of incarcerated paraesophageal hernia in April 2020, stable. 6. Mild intermittent asthma, stable. 7. Gastroesophageal reflux disease and GI prophylaxis. Continue omeprazole 20 g twice daily. 8. Generalized anxiety disorder. Continue Xanax 0.25 mg twice daily. 9. Metabolic encephalopathy most likely secondary to high-dose steroids which have been discontinued. Neurology consult. CAT scan of the brain was negative for acute findings. Carotid ultrasound ordered. 10. Lower extremity weakness. CAT scan of the lumbar spine. 11. Acute urinary tract infection. Patient started on Rocephin. 12. 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 Discussed with Dr. Madrid. Viscosity serum ordered. 13. DVT prophylaxis. Heparin subcu. 14. GI prophylaxis. Protonix 40 mg CODE STATUS: Full code Discharge plan: [facility] if insurance authorization can be obtained. Consult with Dr. Kathy greene for possible inpatient rehab. Patient is at high risk for falls. Impression and plan of care have been directed as dictated by the signing ph ysician. Lisa Davis nurse practitioner acting as scribe for signing physician. Objective - Vital Signs Vital signs: Vital Signs Temp 97.5 F L 10/20/20 08:30 Pulse 77 10/20/20 08:30 Resp 16 10/20/20 08:30 BP 112/77 10/20/20 08:30 Pulse Ox 95 10/20/20 08:30 Intake & Output 10/19/20 10/20/20 10/20/20 18:59 06:59 18:59 Intake Total 780 480 Output Total 400 450 Balance 380 -450 480 Weight 56.9 kg Intake: Oral 780 480 Output: Urine 400 450 Other: Voiding Method Toilet Toilet Toilet Diaper Diaper Diaper # Voids 1 - Labs CBC & Chem 7: 10/20/20 06:10 10/20/20 06:10 Labs: Abnormal Lab Results - Last 24 Hours (Table) 10/20/20 10/20/20 Range/Units 06:10 06:10 WBC 11.8 H (3.8-10.6) k/uL Hgb 16.7 H (11.4-16.0) gm/dL Hct 51.7 H (34.0-46.0) % RDW 16.6 H (11.5-15.5) % Sodium 128 L (137-145) mmol/L Chloride 86 L (98-107) mmol/L Carbon Dioxide 38 H (22-30) mmol/L BUN 76 H (7-17) mg/dL Glucose 128 H (74-99) mg/dL Total Bilirubin 2.8 H (0.2-1.3) mg/dL AST 97 H (14-36) U/L ALT 100 H (4-34) U/L Alkaline Phosphatase 176 H (38-126) U/L Total Protein 5.7 L (6.3-8.2) g/dL Albumin 3.2 L (3.5-5.0) g/dL
--- NOTE | 2020-10-20 16:59 | P.PN ---
Subjective Progress Note Date: 10/20/20 Principal diagnosis: Multiple Myeloma, Respiratory Insufficiency Breathing is still short with exertion but better than on admission Objective - Vital Signs Vital signs: Vital Signs Temp 97.5 F L 10/20/20 08:30 Pulse 77 10/20/20 08:30 Resp 16 10/20/20 08:30 BP 112/77 10/20/20 08:30 Pulse Ox 95 10/20/20 08:30 Intake & Output 10/19/20 10/20/20 10/20/20 18:59 06:59 18:59 Intake Total 780 480 Output Total 400 450 Balance 380 -450 480 Weight 56.9 kg Intake: Oral 780 480 Output: Urine 400 450 Other: Voiding Method Toilet Toilet Diaper Diaper # Voids 1 - Exam - Constitutional Patient was laying fairly flat comfortably, but did seem to be at least slightly short of breath while conversing General appearance: no acute distress - EENT Eyes: EOMI, PERRLA ENT: hearing grossly normal, normal oropharynx - Neck Neck: no lymphadenopathy Thyroid: bilateral: normal size - Respiratory Respiratory: right: diminished, rales, increased effort noted - Cardiovascular Rhythm: Tachycardia - Gastrointestinal General gastrointestinal: normal bowel sounds, soft - Integumentary Integumentary: normal - Neurologic Neurologic: CNII-XII intact - Musculoskeletal Musculoskeletal: generalized weakness, strength equal bilaterally - Psychiatric Psychiatric: A&O x's 1, COnfusion - Labs CBC & Chem 7: 10/20/20 06:10 10/20/20 06:10 Labs: Abnormal Lab Results - Last 24 Hours (Table) 10/20/20 10/20/20 Range/Units 06:10 06:10 WBC 11.8 H (3.8-10.6) k/uL Hgb 16.7 H (11.4-16.0) gm/dL Hct 51.7 H (34.0-46.0) % RDW 16.6 H (11.5-15.5) % Sodium 128 L (137-145) mmol/L Chloride 86 L (98-107) mmol/L Carbon Dioxide 38 H (22-30) mmol/L BUN 76 H (7-17) mg/dL Glucose 128 H (74-99) mg/dL Total Bilirubin 2.8 H (0.2-1.3) mg/dL AST 97 H (14-36) U/L ALT 100 H (4-34) U/L Alkaline Phosphatase 176 H (38-126) U/L Total Protein 5.7 L (6.3-8.2) g/dL Albumin 3.2 L (3.5-5.0) g/dL Assessment and Plan (1) Dyspnea Current Visit: Yes Status: Acute Code(s): R06.00 - DYSPNEA, UNSPECIFIED SNOMED Code(s): 084671633 (2) Multiple myeloma Current Visit: Yes Status: Acute Code(s): C90.00 - MULTIPLE MYELOMA NOT HAVING ACHIEVED REMISSION SNOMED Code(s): 902527844 (3) Congestive heart failure Current Visit: No Status: Acute Code(s): I50.9 - HEART FAILURE, UNSPECIFIED SNOMED Code(s): 35058917 Plan: CTA Negative for PE Will proceed with a pulse dose steroid 40mg PO daily x4 to treat Myeloma Comments: Echocardiogram report reviewed. EKG reviewed Chest x-ray: report reviewed CT scan - abdomen: report reviewed CT scan - pelvis: report reviewed Assessment and Plan Dyspnea - Improving CTA Neg Probable component of congestive heart failure exacerbation, as well as pleural effusion due to her underlying hematologic condition. - Patient had a chest ultrasound with the site of the pleural effusion marked. - Status Post thoracentesis on 10/08/20. Current Visit: Yes Status: Acute Code(s): R06.00 - DYSPNEA, UNSPECIFIED SNOMED Code(s): 594550507 Multiple myeloma - There is concern of light chain deposit, given the appearance of the myocardium on echocardiogram - She is to start on the RVD regimen for myeloma on 10/11/20. - This will also treat any light chain deposition disease in a specific organ. - Status post treatment pulse dose steroid today 40mg po daily x4 days, with PPI, Second round started today 10.19.19 Current Visit: Yes Status: Acute Code(s): C90.00 - MULTIPLE MYELOMA NOT HAVING ACHIEVED REMISSION SNOMED Code(s): 951372831 Increased Hemoglobin: - Iron Supplementation stopped and continue to hold please Atrial Tachycardia: - Cardiology is following Plan: - Will have office call to start treatment - If need therapy then will continue on Pulse dose dexamethasone 40mg PO 4 days on, 4 days off - If plan for IPR would see if Revlimid would be allowed to accompany her Dexamethasone for treatment of myeloma, if not will continue above with pulse dose dex. - Follow-up in office one week if home or shortly after rehab discharge
[2020-10-20] MEDS: ALPRAZolam 0.25 MG TAB PO SCH (22:04)
[2020-10-21] MEDS: PANTOPRAZOLE 40 MG TABLET PO SCH ×2 (07:12→17:35)
[2020-10-21] MEDS: SPIRONOLACTONE 25 MG TAB PO SCH ×2 (09:35→21:06)
[2020-10-21] MEDS: SERTRALINE 50 MG TAB PO SCH (09:35)
[2020-10-21] MEDS: ENOXAPARIN 40 MG/0.4 ML SYRINGE SQ SCH (09:35)
[2020-10-21] MEDS: METOPROLOL TARTRATE 12.5 MG TAB PO SCH (09:35)
[2020-10-21] MEDS: FUROSEMIDE 40 MG TAB PO SCH (09:36)
[2020-10-21] MEDS: metOLazone 2.5 MG TAB PO SCH (09:36)
[2020-10-21] MEDS: dexAMETHasone 4 MG TAB PO SCH (09:36)
--- NOTE | 2020-10-21 10:55 | P.PN ---
Subjective Progress Note Date: 10/21/20 Principal diagnosis: Multiple Myeloma, Respiratory Insufficiency Patient is felt to be high risk for injury given her mental status, difficulty with processing information, memory, and weakness. A fall could potentially result in detrimental injury. This was apparently discussed with insurance company who has refused the request for outpatient or inpatient rehabilitation. To prevent further medical complications, and potential life threatening injury it is felt she would benefit from a rehabilitation at discharge and 24 hour caregiver. Unfortunetly the situation of an extended care facility places us at a difficult position as most cancer treatments, Pills the patient takes daily, are not accepted or approved to be given; even if patient was to bring in own supply from home. Overall if she is discharged to [facility] (with or without rehab) continuing treatment for her myeloma will improve her overall status and potentially assist in improving her functional and performance status. Would like to start her treatment, at least as a doublet Revlamid and Dexamethasone after discharge, if this is not approved by insurance then plan to continue on dexamethasone 40mg for 4 days on, then 4 days off and repeat until approval of additional medications or home. Discussed with Marcio from social work today. Objective - Vital Signs Vital signs: Vital Signs Temp 97.8 F 10/21/20 08:00 Pulse 76 10/21/20 08:00 Resp 16 10/21/20 08:00 BP 110/74 10/21/20 08:00 Pulse Ox 97 10/21/20 08:00 Intake & Output 10/20/20 10/21/20 10/21/20 18:59 06:59 18:59 Intake Total 960 240 Output Total 1 Balance 960 239 Weight 65 kg Intake: Oral 960 240 Output: Stool 1 Other: Voiding Method Toilet Toilet Toilet Diaper Diaper Diaper # Voids 2 0 # Bowel Movements 3 - Exam - Constitutional Patient was laying fairly flat comfortably, but did seem to be at least slightly short of breath while conversing General appearance: no acute distress - EENT Eyes: EOMI, PERRLA ENT: hearing grossly normal, normal oropharynx - Neck Neck: no lymphadenopathy Thyroid: bilateral: normal size - Respiratory Respiratory: right: diminished, rales, increased effort noted - Cardiovascular Rhythm: Tachycardia - Gastrointestinal General gastrointestinal: normal bowel sounds, soft - Integumentary Integumentary: normal - Neurologic Neurologic: CNII-XII intact - Musculoskeletal Musculoskeletal: generalized weakness, strength equal bilaterally - Psychiatric Psychiatric: A&O x's 1, COnfusion - Labs CBC & Chem 7: 10/20/20 06:10 10/20/20 06:10 Assessment and Plan (1) Dyspnea Current Visit: Yes Status: Acute Code(s): R06.00 - DYSPNEA, UNSPECIFIED SNOMED Code(s): 465745763 (2) Multiple myeloma Current Visit: Yes Status: Acute Code(s): C90.00 - MULTIPLE MYELOMA NOT HAVING ACHIEVED REMISSION SNOMED Code(s): 793062914 (3) Congestive heart failure Current Visit: No Status: Acute Code(s): I50.9 - HEART FAILURE, UNSPECIFIED SNOMED Code(s): 22225640 Plan: CTA Negative for PE Will proceed with a pulse dose steroid 40mg PO daily x4 to treat Myeloma Comments: Echocardiogram report reviewed. EKG reviewed Chest x-ray: report reviewed CT scan - abdomen: report reviewed CT scan - pelvis: report reviewed Assessment and Plan Dyspnea - Improving CTA Neg Probable component of congestive heart failure exacerbation, as well as pleural effusion due to her underlying hematologic condition. - Patient had a chest ultrasound with the site of the pleural effusion marked. - Status Post thoracentesis on 10/08/20. Current Visit: Yes Status: Acute Code(s): R06.00 - DYSPNEA, UNSPECIFIED SNOMED Code(s): 912722636 Multiple myeloma - There is concern of light chain deposit, given the appearance of the myocardium on echocardiogram - She is to start on the RVD regimen for myeloma on 10/11/20. - This will also treat any light chain deposition disease in a specific organ. - Status post treatment pulse dose steroid today 40mg po daily x4 days, with PPI, Second round started today 10.19.19 Current Visit: Yes Status: Acute Code(s): C90.00 - MULTIPLE MYELOMA NOT HAVING ACHIEVED REMISSION SNOMED Code(s): 559538318 Increased Hemoglobin: - Iron Supplementation stopped and continue to hold please Atrial Tachycardia: - Cardiology is following Plan: Patient is felt to be high risk for injury given her mental status, difficulty with processing information, memory, and weakness. A fall could potentially result in detrimental injury. This was apparently discussed with insurance company who has refused the request for outpatient or inpatient rehabilitation. To prevent further medical complications, and potential life threatening injury it is felt she would benefit from a rehabilitation at discharge and 24 hour caregiver. Unfortunetly the situation of an extended care facility places us at a difficult position as most cancer treatments, Pills the patient takes daily, are not accepted or approved to be given; even if patient was to bring in own supply from home. Overall if she is discharged to ECF (with or without rehab) continuing treatment for her myeloma will improve her overall status and potentially assist in improving her functional and performance status. Would like to start her treatment, at least as a doublet Revlamid and Dexamethasone after discharge, if this is not approved by insurance then plan to continue on dexamethasone 40mg for 4 days on, then 4 days off and repeat until approval of additional medications or home. Discussed with Marcio from social work today. - Dexamethasone and PPI added to discharge medication list with step by step instructions on administration if revlamid is not allowed at ECF. - Patient is to make follow-up appointment as soon as discharged or permanent ECF is established.
[2020-10-21] MEDS: ALPRAZolam 0.25 MG TAB PO SCH (21:06)
[2020-10-22] MEDS: PANTOPRAZOLE 40 MG TABLET PO SCH ×2 (06:27→17:21)
[2020-10-22] MEDS: metOLazone 2.5 MG TAB PO SCH (08:46)
[2020-10-22] MEDS: SERTRALINE 50 MG TAB PO SCH (08:46)
[2020-10-22] MEDS: FUROSEMIDE 40 MG TAB PO SCH (08:46)
[2020-10-22] MEDS: SPIRONOLACTONE 25 MG TAB PO SCH ×2 (08:46→22:06)
[2020-10-22] MEDS: METOPROLOL TARTRATE 12.5 MG TAB PO SCH (08:46)
[2020-10-22] MEDS: ENOXAPARIN 40 MG/0.4 ML SYRINGE SQ SCH (08:47)
--- NOTE | 2020-10-22 11:42 | P.PN ---
Subjective Progress Note Date: 10/21/20 This 70-year-old pleasant female patient of Dr. Hand, with underlying history of paraesophageal hiatal hernia and GERD, chronic bronchial asthma, mild intermittent hypertension, hyperlipidemia, and recently diagnosed to have amyloidosis and multiple diet myeloma, through confirmedbone marrow biopsy, 2 weeks ago. He she is supposed to start treatment with Dr. Madrid this 10/11/2020. She also sees Dr. mercer, for what was suspected to be pericardial effusion. She was recently hospitalized, 08/25/2020, for shortness of breath, sees Dr. Soria cardiology and was diagnosed to have an STEMI, in, 07/17/2020, in the clinic in [facility]. She underwent a heart cath, the second time and was found to have nonobstructive CAD, diastolic CHF, EF was documented to be normal that time, and was discharged with Cozaar and Lopressor Lasix and potassium. She was admitted from our facility Jul, 2020, with chronic dyspnea secondary to restrictive cardiomyopathy, pericardial effusion, and pleural effusion, possible to get amyloidosis at that time. She now comes in to the emergency room, which shortness of breath, edema, difficulty of breathing, patient also has anasarca, generalized weakness, and fatigue, patient felt lightheaded and dizzy, patient did not pass out, has diff iculty in ambulating and has difficulty in getting up when she was lowered down to the floor upon her fall, she has no appetite, denies any new weight loss, however she is gaining more weight with edema, her pulse ox at home was around 90% on room air, in the emergency room, she has no leukocytosis, with WBCs 10, hemoglobin is 18.8, creatinine of 0.9, BUN of 36, sodium 136, platelet count is 164 troponin of 0.263, alkaline phosphatase elevated to 19, AST ALT, elevated, total bili elevated 4.4. Consults were made with cardiology, and oncology for the elevated troponin, and amyloidosis, multiple myeloma echocardiogram is requested for pleural effusion,, patient has seen Dr. hills in the past, we will obtain his service, and a thoracic ultrasound 10/10: Patient is found resting comfortably in bed without any acute distress. Patient states that she is breathing better compared to yesterday. Chest CTA yesterday shows no acute PE, cardiomegaly with pericardial effusion and contrast reflux headache veins. Anasarca with small volume abdominal ascites suggested of third spacing. Small to moderate right pleural effusion. She has post thoracentesis. Ejection fraction on echocardiogram showed 45-50%. she remains on IV Lasix. Continues to have 2+ peripheral lower extremity edema. 10/11: Patient is seen today on the cardiac stepdown unit. States that she is feeling much better from yesterday. She is known to have increased lower extremity edema for which Lasix increased. Breathing status is improved today. Patient is followed by oncology, cardiology and pulmonary medicine. Repeat blood work reveals WBC 6.1, hemoglobin 16.3. Platelet count not reported. Sodium 133, potassium 5, chloride 97, CO2 29, BUN 47 and creatinine 1.05. Blood sugar 123. Repeat chest x-ray reveals small right pleural effusion and mildly decreased from 10/08. Cytology is pending. 10/12: Patient is followed by consultants pulmonary medicine, oncology and cardiology. She denies having any chest pain or shortness of breath. She is on IV Lasix. Heart rate is running in the 110 to 120s with atrial tachycardia. Cardiology has added metoprolol 12.5 mg. Patient is worked with physical therapy and she had difficulty with stairs. We will add a consult for Dr. Juan Pablo gordon. At this time patient will consider [place] but this is complicated because of patient requires chemotherapy and this cannot be postponed, patient will not be able to obtain subacute rehab. Repeat blood work reveals WBC 13.3, hemoglobin 16.8, platelet count 136. Sodium 132, potassium 5.0, chloride 94, CO2 31, BUN 54 and creatinine 1.02. Total bilirubin 2.9, AST 144, ALT 117, alkaline phosphatase 188. Oncology has ordered dexamethasone 40 mg daily for 4 doses. 10/13: Patient has completed course of dexamethasone. Further plan to be determined by oncology. Orthostatics were checked and were negative and patient's nurse will recheck orthostatics this morning. Patient will be placed on Lasix 40 mg IV twice daily. Chest x-ray ordered., Pulse ox 97% on 5 L nasal cannula. Repeat blood work reveals WBC 11.1, hemoglobin 17.6, platelet count 144. Sodium 130, potassium 5.3, chloride 92, CO2 34, BUN 64 creatinine 1.04. Total bilirubin 3.8, AST 119, ALT 125, alkaline phosphatase 187. recreation establishment manager is working on discharge planning depending on plan from oncology. Patient may be ready for discharge by tomorrow. 10/14: Cytology from pleural fluid revealed limited hypocellular specimen with rare scattered mesothelial cells and inflammatory cells. Last evening, patient had increased confusion, right lower extremity drift. Repeat CAT scan of the brain was ordered which revealed mild periventricular white matter ischemic type changes. Neurology consult was added. Patient is alert and oriented 3 and answering questions appropriately at this time. Patient noted to have increased weakness to the right lower extremity. She states she has had that since she had a fall in her home about 2 weeks ago. She states she was walking on a wood floor and slipped and fell. She denied having any lightheadedness or dizziness at the time with this. Liver ultrasound revealed At 0.45 cm. Small pericholecystic fluid present. Correlate for cholecystitis. Possible nonobstructing inferior right renal pole renal stone. Repeat chest x-ray reveals cardiomegaly. Small mild prominence of pulmonary vascular markings. Consider approaching volume overload. Oncology is following and patient completed course of steroid, 4 days. Insurance has denied subacute rehab and requiring appeared to care which will be on hold at this time. Patient is not ready for discharge. 10/15: Today, patient is complaining of weakness in her right lower extremity. She has been seen by neurology. She continues to be followed by oncology and cardiology. She underwent carotid study which does not reveal any hemodynamically significant stenosis. MRI of the brain revealed no subacute ischemia. Age related changes of atrophy and chronic small vessel ischemia. Urinalysis was cloudy, leukoesterase moderate, wbc's 22 and Rocephin will be started. Urine culture is in progress. Pleural fluid cultures have been finalized with no growth. WBC 11.8, hemoglobin 17.9 and platelet count 143. Sodium 131, potassium 5.4, chloride 90, CO2 35, BUN 82 and creatinine 1.21. He moglobin A1c was 6.4. Magnesium 2.1. Iron 112, TIBC 329, iron saturation 34.04. Ferritin 142.7. Total bilirubin 5.2, AST 77, ALT 112, alkaline phosphatase 173. LDH 1449. Patient's insurance has approved her for subacute rehab and oncology is holding chemotherapy while patient gets stronger. 10/16: Neurology was concerned that patient had left lower extremity weakness as we had seen right lower extremity weakness yesterday. He is concern for hyper- viscus syndrome and this was discussed with Dr. Madrid and we have ordered discussed a serum but this is not suspected per Dr. Madrid. Today patient is complaining of bilateral lower extremity weakness and MRI of the lumbar spine will be ordered. Lasix is now oral 40 mg daily starting today. Patient is not to receive any iron. She has been afebrile, heart rate 64, blood pressure 113/76, pulse ox 94% on 3 L nasal cannula. She denies having any numbness or tingling. She does complain of pain in her back. Repeat blood work reveals WBC 12.0, hemoglobin 17.6, platelet count 159. Sodium 130, potassium 5.4, chloride 90, CO2 34, BUN 84 and creatinine 0.84. Blood sugar 136. Total bilirubin 4.2, AST 77, ALT 103, alkaline phosphatase 171. 10/17: Patient states that she continues to have lower extremity weakness. MRI of the lumbar spine revealed posterior fusion surgery. First degree L4 5 spondylolisthesis. Small posterior disc bulging and herniation at L3 4 and L5- S1. There is some lateral recess stenosis and mild spinal stenosis at L4-5 due to subluxation and facet arthropathy. Consult with orthopedic spine added. Repeat blood work reveals WBC 9.7, hemoglobin 17, platelet count 162. Sodium 133, potassium 4.8, chloride 88, CO2 41, BUN 76 and creatinine 0.95. Blood sugar 89. Patient will start her second course of Decadron tomorrow for multiple myeloma. Patient is followed by oncology and she has completed the first bolus of Decadron for 4 days and will be starting second one tomorrow. Patient has been afebrile, heart rate 73, blood pressure 108/72, pulse ox 94% on 3 L nasal cannula. Patient is not on home oxygen therapy. 10/18: The patient is seen today in follow-up. She states she is feeling better today and has worked with physical therapy. Patient is seen by orthopedic spine and no plan for any surgical intervention. Recommends conservative treatment and possible pain management follow-up and patient may follow-up with orthopedic spine as needed. Oncology has recommended continuing pulse dose dexamethasone 40 mg oral 4 days on 4 days off. Patient has been afebrile, heart rate 77, blood pressure 97/64, pulse ox 94% on 3 L nasal cannula. Patient will be discharged to [facility] once arrangements are completed. Patient did very well with physical therapy today walking 216 feet. Insurance authorization most likely will be denied and is currently in medical review. Patient is interested in going home versus subacute rehab. Patient will be discharged today in stable condition. Subsequent to that, patient had a fall. Insurance has denied patient subacute rehab at this point patient is not safe to be discharged home. Family is very upset about the current situation. Patient's discharge will be held and patient will be reevaluated tomorrow. 10/19: Patient reevaluated today. Patient is deathly not safe to go home. Patient was unable to do any stairs and would have fallen if staff hadn't been there to help her up. Insurance did deny subacute rehab and will ask for Dr. Chavez to evaluate for and continued to request insurance authorization for subacute rehab as well. Patient is afebrile, heart rate 85, blood pressure 99/64, pulse ox 95% on 3 L nasal cannula. 10/20: Patient is working with physical therapy and continues to be high risk for falls. She is to person with her. Patient has been afebrile, heart rate 77, blood pressure 112/77, pulse ox 95% on 2 L nasal cannula. WBC 11.8, hemoglobin 16.7, platelet count 191. Sodium 128, potassium 5.1, chloride 86, CO2 38, BUN 76 and creatinine 0.69. Blood sugar 128. Total bilirubin 2.8, AST 97, ALT 100, alkaline phosphatase 170s. There to here review his been done with the insurance company and Dr. Liu. Insurance authorization has been verbally obtained, requesting updated therapy notes and patient will be discharged to [facility] once all arrangements are completed. 10/21: Patient continues to work with physical therapy and is at high risk for falls. Patient has been afebrile, HR 75, BP 112/79, PO 95% on 3L. Discharge was delayed yesterday waiting for insurance authorization. Please see social work notes regarding this. Patient will be discharged to [facility] with or without insurance authorization today. No changes to her discharge medications. Patient will be discharged today in stable condition. Review Of Systems: Constitutional: No fever, no chills, no night sweats. No weight change. No weakness, fatigue or lethargy. No daytime sleepiness. EENT: No headache. No blurred vision or double vision, no loss of vision. No loss of Hearing, no ringing in the ears, no dizziness. No nasal drainage or congestion. No epistaxis. No sore throat. Lungs: Reports shortness of breath improving, cough, no sputum production. No wheezing. Cardiovascular: No chest pain, no lower extremity edema. No palpitations. No paroxysmal nocturnal dyspnea. No orthopnea. No lightheadedness or dizziness. No syncopal episodes. Abdominal: no abdominal discomfort. No nausea, vomiting. no diarrhea. No constipation. No bloody or tarry stools. no loss of appetite. Genitourinary: No dysuria, increased frequency, urgency. No urinary retention. Musculoskeletal: No myalgias. Reports muscle weakness bilateral lower extremities weakness, reports gait dysfunction, high risk for falls. No back pain. No neck pain. Integumentary: No wounds, no lesions. No rash or pruritus. No unusual bruising. No change in hair or nails. Neurologic: No aphasia. No facial droop. Reported change in mentation yesterday and last evening. No head injury. No headache. No paralysis. No paresthesia. Psychiatric: No depression. No anxiety. No mood swings. Endocrine: No abnormal blood sugars. No weight change. Physical Exam: General Appearance: Alert, cooperative, no distress, this is a 70-year-old pleasant female appears stated age. Neck HEENT: Supple, no lymphadenopathy, no thyroid enlargement, no carotid bruits. Lungs: Clear to auscultation without crackles or wheezes, diminished no rhonchi, no deformity. Chest Wall: Chest wall normal expansion with deep inspiration no tenderness and no deformity was found on exam, no costochondral pain or discomfort. Heart: Regular rate and rhythm, S1, S2 normal, no murmur, rub or gallop. Back: Symmetric, no curvature, ROM normal, no CVA tenderness. Abdomen: Soft, non-tender, no rebound or rigidity, no hepatosplenomegaly. Extremities: Extremities normal, atraumatic, no cyanosis, 2+ bilateral lower extremity edema Pulses: 2+ and symmetric. Skin: Skin color, texture, tugor normal, no rashes or lesions. Neurologic: Alert oriented x3 cranial nerves II through XII intact, no motor deficit, no abnormal balance or gait. Bilateral lower extremity weakness Assessment/plan: 1. Acute on chronic dyspnea secondary with acute hypoxemic respiratory failure, currently multifactorial to include amyloidosis, with cardiomyopathy, moderate right pleural effusion, acute diastolic heart failure and recent diagnosis of pericardial effusion,, consult appreciated by pulmonology, cardiology, and oncology. Patient underwent a thoracentesis with removal of 750 ML's of tarry colored fluid without difficulty. Pathology negative for malignancy. Continue Lasix 40 mg oral daily 2. Elevated troponins which is chronic,. Patient had recent heart catheterization in [place] was reported as negative for obstructive disease 07/2020. Cardiology consult and repeat troponins. Echocardiogram conclusion: EF between 45 and 50%, moderate concentric left ventricular atrophy, moderate generalized pericardial effusion present, right ventricle is mildly enlarged, ileus mildly dilated, mild pulmonary hypertension. Her ventricular systolic pressure measured by Doppler is 39.15 mmHg. 3. Amyloidosis, suspect cardiac cardiac cardiomyopathy, no treatment initiated yet, oncology consult appreciated, 4. Multiple myeloma. Patient completed course of dexamethasone and has started second course of dexamethasone 40 mg daily on Wednesday 10/18. No plan for Revlima. 5. Transaminitis with elevated total bili / jaundice possibly secondary to cholecystitis possibly secondary to amyloid as well, 3. Hyperlipidemia. Continue Lipitor 20 mg daily. 4. Hypertension. Continu Lopressor 25 mg twice daily. 5. Hiatal hernia status post robotic-assisted laparoscopic repair of incarcerated paraesophageal hernia in April 2020, stable. 6. Mild intermittent asthma, stable. 7. Gastroesophageal reflux disease and GI prophylaxis. Continue omeprazole 20 g twice daily. 8. Generalized anxiety disorder. Continue Xanax 0.25 mg twice daily. 9. Metabolic encephalopathy most likely secondary to high-dose steroids which have been discontinued. Neurology consult. CAT scan of the brain was negative for acute findings. Carotid ultrasound ordered. 10. Lower extremity weakness. CAT scan of the lumbar spine. 11. Acute urinary tract infection. Continue Rocephin. 12. 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 Discussed with Dr. Madrid. Viscosity serum ordered. 13. DVT prophylaxis. Heparin subcu. 14. GI prophylaxis. Protonix 40 mg CODE STATUS: Full code Discharge plan: [facility] if insurance authorization can be obtained. Patient may go to [facility] as private pay.. Impression and plan of care have been directed as dictated by the signing physi cian. Lisa Davis nurse practitioner acting as scribe for signing physician. Objective - Vital Signs Vital signs: Vital Signs Temp 97.4 F L 10/22/20 08:00 Pulse 77 10/22/20 08:00 Resp 20 10/22/20 08:00 BP 119/83 10/22/20 08:00 Pulse Ox 93 L 10/22/20 08:00 Intake & Output 10/21/20 10/22/20 10/22/20 18:59 06:59 18:59 Intake Total 1130 480 Output Total 1 1 Balance 1129 -1 480 Weight 61.1 kg Intake: Intake, IV Titration 50 Amount cefTRIAXone 1 gm In 50 Sodium Chloride 0.9% 50 ml @ 100 mls/hr IVPB Q24HR [facility] Rx#:[id number] Oral 1080 480 Output: Urine 0 Stool 1 1 Other: Voiding Method Toilet Toilet Toilet Diaper Diaper Diaper # Voids 1 - Labs CBC & Chem 7: 10/20/20 06:10 10/20/20 06:10
[2020-10-22] MEDS: ALPRAZolam 0.25 MG TAB PO SCH (22:05)
[2020-10-22] MEDS: ACETAMINOPHEN TAB 325 MG TAB PO PRN (22:06)
[2020-10-23] MEDS: PANTOPRAZOLE 40 MG TABLET PO SCH ×2 (06:31→16:49)
[2020-10-23] MEDS: FUROSEMIDE 40 MG TAB PO SCH (09:13)
[2020-10-23] MEDS: metOLazone 2.5 MG TAB PO SCH (09:13)
[2020-10-23] MEDS: METOPROLOL TARTRATE 12.5 MG TAB PO SCH (09:13)
[2020-10-23] MEDS: SERTRALINE 50 MG TAB PO SCH (09:13)
[2020-10-23] MEDS: SPIRONOLACTONE 25 MG TAB PO SCH ×2 (09:13→20:57)
[2020-10-23] MEDS: ENOXAPARIN 40 MG/0.4 ML SYRINGE SQ SCH (09:13)
--- NOTE | 2020-10-23 12:39 | P.PN ---
Subjective Progress Note Date: 10/23/20 This 70-year-old pleasant female patient of Dr. Hand, with underlying history of paraesophageal hiatal hernia and GERD, chronic bronchial asthma, mild intermittent hypertension, hyperlipidemia, and recently diagnosed to have amyloidosis and multiple diet myeloma, through confirmedbone marrow biopsy, 2 weeks ago. He she is supposed to start treatment with Dr. Madrid this 10/11/2020. She also sees Dr. mercer, for what was suspected to be pericardial effusion. She was recently hospitalized, 08/25/2020, for shortness of breath, sees Dr. Soria cardiology and was diagnosed to have an STEMI, in, 07/17/2020, in the clinic in [facility]. She underwent a heart cath, the second time and was found to have nonobstructive CAD, diastolic CHF, EF was documented to be normal that time, and was discharged with Cozaar and Lopressor Lasix and potassium. She was admitted from our facility Jul, 2020, with chronic dyspnea secondary to restrictive cardiomyopathy, pericardial effusion, and pleural effusion, possible to get amyloidosis at that time. She now comes in to the emergency room, which shortness of breath, edema, difficulty of breathing, patient also has anasarca, generalized weakness, and fatigue, patient felt lightheaded and dizzy, patient did not pass out, has diff iculty in ambulating and has difficulty in getting up when she was lowered down to the floor upon her fall, she has no appetite, denies any new weight loss, however she is gaining more weight with edema, her pulse ox at home was around 90% on room air, in the emergency room, she has no leukocytosis, with WBCs 10, hemoglobin is 18.8, creatinine of 0.9, BUN of 36, sodium 136, platelet count is 164 troponin of 0.263, alkaline phosphatase elevated to 19, AST ALT, elevated, total bili elevated 4.4. Consults were made with cardiology, and oncology for the elevated troponin, and amyloidosis, multiple myeloma echocardiogram is requested for pleural effusion,, patient has seen Dr. hills in the past, we will obtain his service, and a thoracic ultrasound 10/10: Patient is found resting comfortably in bed without any acute distress. Patient states that she is breathing better compared to yesterday. Chest CTA yesterday shows no acute PE, cardiomegaly with pericardial effusion and contrast reflux headache veins. Anasarca with small volume abdominal ascites suggested of third spacing. Small to moderate right pleural effusion. She has post thoracentesis. Ejection fraction on echocardiogram showed 45-50%. she remains on IV Lasix. Continues to have 2+ peripheral lower extremity edema. 10/11: Patient is seen today on the cardiac stepdown unit. States that she is feeling much better from yesterday. She is known to have increased lower extremity edema for which Lasix increased. Breathing status is improved today. Patient is followed by oncology, cardiology and pulmonary medicine. Repeat blood work reveals WBC 6.1, hemoglobin 16.3. Platelet count not reported. Sodium 133, potassium 5, chloride 97, CO2 29, BUN 47 and creatinine 1.05. Blood sugar 123. Repeat chest x-ray reveals small right pleural effusion and mildly decreased from 10/08. Cytology is pending. 10/12: Patient is followed by consultants pulmonary medicine, oncology and cardiology. She denies having any chest pain or shortness of breath. She is on IV Lasix. Heart rate is running in the 110 to 120s with atrial tachycardia. Cardiology has added metoprolol 12.5 mg. Patient is worked with physical therapy and she had difficulty with stairs. We will add a consult for Dr. Juan Pablo gordon. At this time patient will consider [place] but this is complicated because of patient requires chemotherapy and this cannot be postponed, patient will not be able to obtain subacute rehab. Repeat blood work reveals WBC 13.3, hemoglobin 16.8, platelet count 136. Sodium 132, potassium 5.0, chloride 94, CO2 31, BUN 54 and creatinine 1.02. Total bilirubin 2.9, AST 144, ALT 117, alkaline phosphatase 188. Oncology has ordered dexamethasone 40 mg daily for 4 doses. 10/13: Patient has completed course of dexamethasone. Further plan to be determined by oncology. Orthostatics were checked and were negative and patient's nurse will recheck orthostatics this morning. Patient will be placed on Lasix 40 mg IV twice daily. Chest x-ray ordered., Pulse ox 97% on 5 L nasal cannula. Repeat blood work reveals WBC 11.1, hemoglobin 17.6, platelet count 144. Sodium 130, potassium 5.3, chloride 92, CO2 34, BUN 64 creatinine 1.04. Total bilirubin 3.8, AST 119, ALT 125, alkaline phosphatase 187. garage manager is working on discharge planning depending on plan from oncology. Patient may be ready for discharge by tomorrow. 10/14: Cytology from pleural fluid revealed limited hypocellular specimen with rare scattered mesothelial cells and inflammatory cells. Last evening, patient had increased confusion, right lower extremity drift. Repeat CAT scan of the brain was ordered which revealed mild periventricular white matter ischemic type changes. Neurology consult was added. Patient is alert and oriented 3 and answering questions appropriately at this time. Patient noted to have increased weakness to the right lower extremity. She states she has had that since she had a fall in her home about 2 weeks ago. She states she was walking on a wood floor and slipped and fell. She denied having any lightheadedness or dizziness at the time with this. Liver ultrasound revealed At 0.45 cm. Small pericholecystic fluid present. Correlate for cholecystitis. Possible nonobstructing inferior right renal pole renal stone. Repeat chest x-ray reveals cardiomegaly. Small mild prominence of pulmonary vascular markings. Consider approaching volume overload. Oncology is following and patient completed course of steroid, 4 days. Insurance has denied subacute rehab and requiring appeared to care which will be on hold at this time. Patient is not ready for discharge. 10/15: Today, patient is complaining of weakness in her right lower extremity. She has been seen by neurology. She continues to be followed by oncology and cardiology. She underwent carotid study which does not reveal any hemodynamically significant stenosis. MRI of the brain revealed no subacute ischemia. Age related changes of atrophy and chronic small vessel ischemia. Urinalysis was cloudy, leukoesterase moderate, wbc's 22 and Rocephin will be started. Urine culture is in progress. Pleural fluid cultures have been finalized with no growth. WBC 11.8, hemoglobin 17.9 and platelet count 143. Sodium 131, potassium 5.4, chloride 90, CO2 35, BUN 82 and creatinine 1.21. He moglobin A1c was 6.4. Magnesium 2.1. Iron 112, TIBC 329, iron saturation 34.04. Ferritin 142.7. Total bilirubin 5.2, AST 77, ALT 112, alkaline phosphatase 173. LDH 1449. Patient's insurance has approved her for subacute rehab and oncology is holding chemotherapy while patient gets stronger. 10/16: Neurology was concerned that patient had left lower extremity weakness as we had seen right lower extremity weakness yesterday. He is concern for hyper- viscus syndrome and this was discussed with Dr. Madrid and we have ordered discussed a serum but this is not suspected per Dr. Madrid. Today patient is complaining of bilateral lower extremity weakness and MRI of the lumbar spine will be ordered. Lasix is now oral 40 mg daily starting today. Patient is not to receive any iron. She has been afebrile, heart rate 64, blood pressure 113/76, pulse ox 94% on 3 L nasal cannula. She denies having any numbness or tingling. She does complain of pain in her back. Repeat blood work reveals WBC 12.0, hemoglobin 17.6, platelet count 159. Sodium 130, potassium 5.4, chloride 90, CO2 34, BUN 84 and creatinine 0.84. Blood sugar 136. Total bilirubin 4.2, AST 77, ALT 103, alkaline phosphatase 171. 10/17: Patient states that she continues to have lower extremity weakness. MRI of the lumbar spine revealed posterior fusion surgery. First degree L4 5 spondylolisthesis. Small posterior disc bulging and herniation at L3 4 and L5- S1. There is some lateral recess stenosis and mild spinal stenosis at L4-5 due to subluxation and facet arthropathy. Consult with orthopedic spine added. Repeat blood work reveals WBC 9.7, hemoglobin 17, platelet count 162. Sodium 133, potassium 4.8, chloride 88, CO2 41, BUN 76 and creatinine 0.95. Blood sugar 89. Patient will start her second course of Decadron tomorrow for multiple myeloma. Patient is followed by oncology and she has completed the first bolus of Decadron for 4 days and will be starting second one tomorrow. Patient has been afebrile, heart rate 73, blood pressure 108/72, pulse ox 94% on 3 L nasal cannula. Patient is not on home oxygen therapy. 10/18: The patient is seen today in follow-up. She states she is feeling better today and has worked with physical therapy. Patient is seen by orthopedic spine and no plan for any surgical intervention. Recommends conservative treatment and possible pain management follow-up and patient may follow-up with orthopedic spine as needed. Oncology has recommended continuing pulse dose dexamethasone 40 mg oral 4 days on 4 days off. Patient has been afebrile, heart rate 77, blood pressure 97/64, pulse ox 94% on 3 L nasal cannula. Patient will be discharged to [facility] once arrangements are completed. Patient did very well with physical therapy today walking 216 feet. Insurance authorization most likely will be denied and is currently in medical review. Patient is interested in going home versus subacute rehab. Patient will be discharged today in stable condition. Subsequent to that, patient had a fall. Insurance has denied patient subacute rehab at this point patient is not safe to be discharged home. Family is very upset about the current situation. Patient's discharge will be held and patient will be reevaluated tomorrow. 10/19: Patient reevaluated today. Patient is deathly not safe to go home. Patient was unable to do any stairs and would have fallen if staff hadn't been there to help her up. Insurance did deny subacute rehab and will ask for Dr. Chavez to evaluate for and continued to request insurance authorization for subacute rehab as well. Patient is afebrile, heart rate 85, blood pressure 99/64, pulse ox 95% on 3 L nasal cannula. 10/20: Patient is working with physical therapy and continues to be high risk for falls. She is to person with her. Patient has been afebrile, heart rate 77, blood pressure 112/77, pulse ox 95% on 2 L nasal cannula. WBC 11.8, hemoglobin 16.7, platelet count 191. Sodium 128, potassium 5.1, chloride 86, CO2 38, BUN 76 and creatinine 0.69. Blood sugar 128. Total bilirubin 2.8, AST 97, ALT 100, alkaline phosphatase 170s. There to here review his been done with the insurance company and Dr. Liu. Insurance authorization has been verbally obtained, requesting updated therapy notes and patient will be discharged to [facility] once all arrangements are completed. 10/21: Patient continues to work with physical therapy and is at high risk for falls. Patient has been afebrile, HR 75, BP 112/79, PO 95% on 3L. Discharge was delayed yesterday waiting for insurance authorization. Please see social work notes regarding this. Patient will be discharged to [facility] with or without insurance authorization today. No changes to her discharge medications. Patient will be discharged today in stable condition. 10/23: Patient evaluated resting in bed, has complaints of mouth ulcers. Valtrex 2 g twice a day 1 day ordered. Vital signs remain stable she's afebrile temp is 97.7, heart rate of 83, blood pressure 110/80. She continues to be 95% on 3 L via nasal cannula. Patient's discharge still delayed due to waiting for insurance authorization, most likely will be delayed until Sunday. Objective - Vital Signs Vital signs: Vital Signs Temp 97.9 F 10/23/20 11:57 Pulse 83 10/23/20 11:57 Resp 20 10/23/20 11:57 BP 108/71 10/23/20 11:57 Pulse Ox 95 10/23/20 11:57 Intake & Output 10/22/20 10/23/20 10/23/20 18:59 06:59 18:59 Intake Total 960 240 Output Total 902 Balance 960 -902 240 Weight 59.2 kg Intake: Oral 960 240 Output: Urine 900 Stool 2 Other: Voiding Method Toilet Toilet Diaper Diaper # Voids 2 2 1 # Bowel Movements 1 2 - Exam General Appearance: Alert, cooperative, no distress, this is a 70-year-old pleasant female appears stated age. Neck HEENT: Supple, no lymphadenopathy, no thyroid enlargement, no carotid bruits, mouth lesions Lungs: Clear to auscultation without crackles or wheezes, diminished no rhonchi, no deformity. Chest Wall: Chest wall normal expansion with deep inspiration no tenderness and no deformity was found on exam, no costochondral pain or discomfort. Heart: Regular rate and rhythm, S1, S2 normal, no murmur, rub or gallop. Back: Symmetric, no curvature, ROM normal, no CVA tenderness. Abdomen: Soft, non-tender, no rebound or rigidity, no hepatosplenomegaly. Extremities: Extremities normal, atraumatic, no cyanosis, 2+ bilateral lower extremity edema Pulses: 2+ and symmetric. Skin: Skin color, texture, tugor normal, no rashes or lesions. Neurologic: Alert oriented x3 cranial nerves II through XII intact, no motor deficit, no abnormal balance or gait. Bilateral lower extremity weakness - Labs CBC & Chem 7: 10/20/20 06:10 10/20/20 06:10 Labs: Microbiology - Last 24 Hours (Table) 10/08/20 16:40 Fungal Culture - Preliminary Pleural Fluid Assessment and Plan Plan: 1. Acute on chronic dyspnea secondary with acute hypoxemic respiratory failure, currently multifactorial to include amyloidosis, with cardiomyopathy, moderate right pleural effusion, acute diastolic heart failure and recent diagnosis of pericardial effusion,, consult appreciated by pulmonology, cardiology, and oncology. Patient underwent a thoracentesis with removal of 750 ML's of tarry colored fluid without difficulty. Pathology negative for malignancy. Continue Lasix 40 mg oral daily 2. Elevated troponins which is chronic, Patient had recent heart margarita terization in [place] was reported as negative for obstructive disease 07/2020. Cardiology consult and repeat troponins. Echocardiogram conclusion: EF between 45 and 50%, moderate concentric left ventricular atrophy, moderate generalized pericardial effusion present, right ventricle is mildly enlarged, ileus mildly dilated, mild pulmonary hypertension. Her ventricular systolic pressure measured by Doppler is 39.15 mmHg. 3. Amyloidosis, suspect cardiac cardiac cardiomyopathy, no treatment initiated yet, oncology consult appreciated 4. Multiple myeloma. Patient completed course of dexamethasone and has started second course of dexamethasone 40 mg daily on Wednesday 10/18. No plan for [place]. 5. Transaminitis with elevated total bili / jaundice possibly secondary to cholecystitis possibly secondary to amyloid as well, 3. Hyperlipidemia. Continue Lipitor 20 mg daily. 4. Hypertension. Continu Lopressor 25 mg twice daily. 5. Hiatal hernia status post robotic-assisted laparoscopic repair of incarcerated paraesophageal hernia in April 2020, stable. 6. Mild intermittent asthma, stable. 7. Gastroesophageal reflux disease and GI prophylaxis. Continue omeprazole 20 g twice daily. 8. Generalized anxiety disorder. Continue Xanax 0.25 mg twice daily. 9. Metabolic encephalopathy most likely secondary to high-dose steroids which have been discontinued. Neurology consult. CAT scan of the brain was negative for acute findings. Carotid ultrasound ordered. 10. Lower extremity weakness. CAT scan of the lumbar spine. 11. Acute urinary tract infection. Continue Rocephin. 12. 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 Discussed with Dr. Madrid. Viscosity serum ordered. 13. DVT prophylaxis. Heparin subcu. 14. GI prophylaxis. Protonix 40 mg 15. Mouth ulcers. Valtrex 2 g twice a day 1 day CODE STATUS: Full code Discharge plan: [facility] if insurance authorization can be obtained. Patient may go to [facility] as private pay. The above impression and plan of care have been discussed and directed by signing physician. [place] nurse practitioner acting as scribe for signing physician.
[2020-10-23] MEDS: valACYclovir HCL 1,000 MG TABLET PO SCH ×2 (16:50→20:57)
[2020-10-23] MEDS: ALPRAZolam 0.25 MG TAB PO SCH (20:57)
[2020-10-24] MEDS: PANTOPRAZOLE 40 MG TABLET PO SCH ×2 (05:41→17:21)
[2020-10-24 07:46] LABS: Anisocytosis Slight; Basophils % (A) 0 %; Eosinophils % (A) 0 %; HGB 17.5 gm/dL (11.4-16.0); Lymphocytes # (A) 0.8 k/uL (1.0-4.8); Lymphocytes % (A) 7 %; MCH 30.9 pg (25.0-35.0); MCHC 32.4 g/dL (31.0-37.0); MCV 95.3 fL (80.0-100.0); Mean Platelet Volume 8.5; Monocytes # (A) 0.6 k/uL (0-1.0); Monocytes % (A) 6 %; Neutrophils # (A) 9.6 k/uL (1.3-7.7); Neutrophils % (A) 86 %; Platelet Count 146 k/uL (150-450); RBC 5.67 m/uL (3.80-5.40); RDW 17.1 % (11.5-15.5); WBC 11.2 k/uL (3.8-10.6)
[2020-10-24 07:56] LABS: ALT 89 U/L (4-34); AST 82 U/L (14-36); African American GFR (CKD) >90 (>60 ml/min/1.73 sqM); Alkaline Phosphatase 138 U/L (38-126); Anion Gap 4 mmol/L; Blood Urea Nitrogen 65 mg/dL (7-17); Calcium 9.2 mg/dL (8.4-10.2); Carbon Dioxide 36 mmol/L (22-30); Chloride 85 mmol/L (98-107); Glucose 86 mg/dL (74-99); Non-African American GFR(CKD) >90 (>60 ml/min/1.73 sqM); Sodium 125 mmol/L (137-145); Total Bilirubin 3.8 mg/dL (0.2-1.3); Total Protein 5.4 g/dL (6.3-8.2)
[2020-10-24] MEDS: SPIRONOLACTONE 25 MG TAB PO SCH ×2 (08:43→20:06)
[2020-10-24] MEDS: SERTRALINE 50 MG TAB PO SCH (08:43)
[2020-10-24] MEDS: METOPROLOL TARTRATE 12.5 MG TAB PO SCH (08:43)
[2020-10-24] MEDS: ENOXAPARIN 40 MG/0.4 ML SYRINGE SQ SCH (08:43)
--- NOTE | 2020-10-24 10:38 | P.PN ---
Subjective This 70-year-old pleasant female patient of Dr. Hand, with underlying history of paraesophageal hiatal hernia and GERD, chronic bronchial asthma, mild intermittent hypertension, hyperlipidemia, and recently diagnosed to have amyloidosis and multiple diet myeloma, through confirmedbone marrow biopsy, 2 weeks ago. He she is supposed to start treatment with Dr. Madrid this 10/11/2020. She also sees Dr. mercer, for what was suspected to be pericardial effusion. She was recently hospitalized, 08/25/2020, for shortness of breath, sees Dr. Soria cardiology and was diagnosed to have an STEMI, in, 07/17/2020, in the clinic in [facility]. She underwent a heart cath, the second time and was found to have nonobstructive CAD, diastolic CHF, EF was documented to be normal that time, and was discharged with Cozaar and Lopressor Lasix and potassium. She was admitted from our facility Jul, 2020, with chronic dyspnea secondary to restrictive cardiomyopathy, pericardial effusion, and pleural effusion, possible to get amyloidosis at that time. She now comes in to the emergency room, which shortness of breath, edema, difficulty of breathing, patient also has anasarca, generalized weakness, and fatigue, patient felt lightheaded and dizzy, patient did not pass out, has difficulty in ambulating and has difficulty in getting up when she was lowered down to the floor upon her fall, she has no appetite, denies any new weight loss, however she is gaining more weight with edema, her pulse ox at home was around 90% on room air, in the emergency room, she has no leukocytosis, with WBCs 10, hemoglobin is 18.8, creatinine of 0.9, BUN of 36, sodium 136, platelet count is 164 troponin of 0.263, alkaline phosphatase elevated to 19, AST ALT, elevated, total bili elevated 4.4. Consults were made with cardiology, and on cology for the elevated troponin, and amyloidosis, multiple myeloma echocardiogram is requested for pleural effusion,, patient has seen Dr. hills in the past, we will obtain his service, and a thoracic ultrasound 10/10: Patient is found resting comfortably in bed without any acute distress. Patient states that she is breathing better compared to yesterday. Chest CTA yesterday shows no acute PE, cardiomegaly with pericardial effusion and contrast reflux headache veins. Anasarca with small volume abdominal ascites suggested of third spacing. Small to moderate right pleural effusion. She has post thoracentesis. Ejection fraction on echocardiogram showed 45-50%. she remains on IV Lasix. Continues to have 2+ peripheral lower extremity edema. 10/11: Patient is seen today on the cardiac stepdown unit. States that she is feeling much better from yesterday. She is known to have increased lower extremity edema for which Lasix increased. Breathing status is improved today. Patient is followed by oncology, cardiology and pulmonary medicine. Repeat blood work reveals WBC 6.1, hemoglobin 16.3. Platelet count not reported. Sodium 133, potassium 5, chloride 97, CO2 29, BUN 47 and creatinine 1.05. Blood sugar 123. Repeat chest x-ray reveals small right pleural effusion and mildly decreased from 10/08. Cytology is pending. 10/12: Patient is followed by consultants pulmonary medicine, oncology and cardiology. She denies having any chest pain or shortness of breath. She is on IV Lasix. Heart rate is running in the 110 to 120s with atrial tachycardia. Cardiology has added metoprolol 12.5 mg. Patient is worked with physical therapy and she had difficulty with stairs. We will add a consult for Dr. Chavez. At this time patient will consider [place] but this is complicated because of patient requires chemotherapy and this cannot be postponed, patient will not be able to obtain subacute rehab. Repeat blood work reveals WBC 13.3, hemoglobin 16.8, platelet count 136. Sodium 132, potassium 5.0, chloride 94, CO2 31, BUN 54 and creatinine 1.02. Total bilirubin 2.9, AST 144, ALT 117, alkaline phosphatase 188. Oncology has ordered dexamethasone 40 mg daily for 4 doses. 10/13: Patient has completed course of dexamethasone. Further plan to be determined by oncology. Orthostatics were checked and were negative and patient's nurse will recheck orthostatics this morning. Patient will be placed on Lasix 40 mg IV twice daily. Chest x-ray ordered., Pulse ox 97% on 5 L nasal cannula. Repeat blood work reveals WBC 11.1, hemoglobin 17.6, platelet count 144. Sodium 130, potassium 5.3, chloride 92, CO2 34, BUN 64 creatinine 1.04. Total bilirubin 3.8, AST 119, ALT 125, alkaline phosphatase 187. family manager is working on discharge planning depending on plan from oncology. Patient may be ready for discharge by tomorrow. 10/14: Cytology from pleural fluid revealed limited hypocellular specimen with rare scattered mesothelial cells and inflammatory cells. Last evening, patient had increased confusion, right lower extremity drift. Repeat CAT scan of the brain was ordered which revealed mild periventricular white matter ischemic type changes. Neurology consult was added. Patient is alert and oriented 3 and answering questions appropriately at this time. Patient noted to have increased weakness to the right lower extremity. She states she has had that since she had a fall in her home about 2 weeks ago. She states she was walking on a wood floor and slipped and fell. She denied having any lightheadedness or dizziness at the time with this. Liver ultrasound revealed At 0.45 cm. Small pericholecystic fluid present. Correlate for cholecystitis. Possible nonobstructing inferior right renal pole renal stone. Repeat chest x-ray reveals cardiomegaly. Small mild prominence of pulmonary vascular markings. Consider approaching volume overload. Oncology is following and patient completed course of steroid, 4 days. Insurance has denied subacute rehab and requiring appeared to care which will be on hold at this time. Patient is not ready for discharge. 10/15: Today, patient is complaining of weakness in her right lower extremity. She has been seen by neurology. She continues to be followed by oncology and cardiology. She underwent carotid study which does not reveal any hemod ynamically significant stenosis. MRI of the brain revealed no subacute ischemia. Age related changes of atrophy and chronic small vessel ischemia. Urinalysis was cloudy, leukoesterase moderate, wbc's 22 and Rocephin will be started. Urine culture is in progress. Pleural fluid cultures have been finalized with no growth. WBC 11.8, hemoglobin 17.9 and platelet count 143. Sodium 131, potassium 5.4, chloride 90, CO2 35, BUN 82 and creatinine 1.21. Hemoglobin A1c was 6.4. Magnesium 2.1. Iron 112, TIBC 329, iron saturation 34.04. Ferritin 142.7. Total bilirubin 5.2, AST 77, ALT 112, alkaline phosphatase 173. LDH 1449. Patient's insurance has approved her for subacute rehab and oncology is holding chemotherapy while patient gets stronger. 10/16: Neurology was concerned that patient had left lower extremity weakness as we had seen right lower extremity weakness yesterday. He is concern for hyper- viscus syndrome and this was discussed with Dr. Madrid and we have ordered discussed a serum but this is not suspected per Dr. Madrid. Today patient is complaining of bilateral lower extremity weakness and MRI of the lumbar spine will be ordered. Lasix is now oral 40 mg daily starting today. Patient is not to receive any iron. She has been afebrile, heart rate 64, blood pressure 113/76, pulse ox 94% on 3 L nasal cannula. She denies having any numbness or t ingling. She does complain of pain in her back. Repeat blood work reveals WBC 12.0, hemoglobin 17.6, platelet count 159. Sodium 130, potassium 5.4, chloride 90, CO2 34, BUN 84 and creatinine 0.84. Blood sugar 136. Total bilirubin 4.2, AST 77, ALT 103, alkaline phosphatase 171. 10/17: Patient states that she continues to have lower extremity weakness. MRI of the lumbar spine revealed posterior fusion surgery. First degree L4 5 spondylolisthesis. Small posterior disc bulging and herniation at L3 4 and L5- S1. There is some lateral recess stenosis and mild spinal stenosis at L4-5 due to subluxation and facet arthropathy. Consult with orthopedic spine added. Re peat blood work reveals WBC 9.7, hemoglobin 17, platelet count 162. Sodium 133, potassium 4.8, chloride 88, CO2 41, BUN 76 and creatinine 0.95. Blood sugar 89. Patient will start her second course of Decadron tomorrow for multiple myeloma. Patient is followed by oncology and she has completed the first bolus of Decadron for 4 days and will be starting second one tomorrow. Patient has been afebrile, heart rate 73, blood pressure 108/72, pulse ox 94% on 3 L nasal cannula. Patient is not on home oxygen therapy. 10/18: The patient is seen today in follow-up. She states she is feeling better today and has worked with physical therapy. Patient is seen by orthopedic spine and no plan for any surgical intervention. Recommends conservative treatment and possible pain management follow-up and patient may follow-up with orthopedic spine as needed. Oncology has recommended continuing pulse dose dexamethasone 40 mg oral 4 days on 4 days off. Patient has been afebrile, heart rate 77, blood pressure 97/64, pulse ox 94% on 3 L nasal cannula. Patient will be discharged to [facility] once arrangements are completed. Patient did very well with physical therapy today walking 216 feet. Insurance authorization most likely will be denied and is currently in medical review. Patient is interested in going home versus subacute rehab. Patient will be discharged today in stable condition. Subsequent to that, patient had a fall. Insurance has denied patient subacute rehab at this point patient is not safe to be discharged home. Family is very upset about the current situation. Patient's discharge will be held and patient will be reevaluated tomorrow. 10/19: Patient reevaluated today. Patient is deathly not safe to go home. Patient was unable to do any stairs and would have fallen if staff hadn't been there to help her up. Insurance did deny subacute rehab and will ask for Dr. Chavez to evaluate for and continued to request insurance authorization for [facility] as well. Patient is afebrile, heart rate 85, blood pressure 99/64, pulse ox 95% on 3 L nasal cannula. 10/20: Patient is working with physical therapy and continues to be high risk for falls. She is to person with her. Patient has been afebrile, heart rate 77, blood pressure 112/77, pulse ox 95% on 2 L nasal cannula. WBC 11.8, hemoglobin 16.7, platelet count 191. Sodium 128, potassium 5.1, chloride 86, CO2 38, BUN 76 and creatinine 0.69. Blood sugar 128. Total bilirubin 2.8, AST 97, ALT 100, alkaline phosphatase 170s. There to here review his been done with the insurance company and Dr. Liu. Insurance authorization has been verbally obtained, requesting updated therapy notes and patient will be discharged to [facility] once all arrangements are completed. 10/21: Patient continues to work with physical therapy and is at high risk for falls. Patient has been afebrile, HR 75, BP 112/79, PO 95% on 3L. Discharge was delayed yesterday waiting for insurance authorization. Please see social work notes regarding this. Patient will be discharged to [facility] with or without insurance authorization today. No changes to her discharge medications. Patient will be discharged today in stable condition. 10/23: Patient evaluated resting in bed, has complaints of mouth ulcers. Valtrex 2 g twice a day 1 day ordered. Vital signs remain stable she's afebrile temp is 97.7, heart rate of 83, blood pressure 110/80. She continues to be 95% on 3 L via nasal cannula. Patient's discharge still delayed due to waiting for insurance authorization, most likely will be delayed until Sunday. 10/24: Patient resting in bed, in no acute distress. Laboratory values revealed WBC 11.2, hemoglobin 17.5, platelet 146, sodium 125, BUN 65, creatinine 0.62. V ital signs are stable she's afebrile temp is 97.6, heart rate 83, blood pressure 97/60, she's 95% on 3 L via nasal cannula. Patient continues to wait for insurance authorization to go to [facility]. Patient is in stable condition and ready for discharge when insurance authorization is obtained. Objective - Vital Signs Vital signs: Vital Signs Temp 97.6 F 10/24/20 08:00 Pulse 83 10/24/20 08:00 Resp 20 10/24/20 08:00 BP 97/60 10/24/20 08:00 Pulse Ox 95 10/24/20 08:00 Intake & Output 10/23/20 10/24/20 10/24/20 18:59 06:59 18:59 Intake Total 530 Output Total 1 Balance 530 -1 Weight 63 kg Intake: Intake, IV Titration 50 Amount cefTRIAXone 1 gm In 50 Sodium Chloride 0.9% 50 ml @ 100 mls/hr IVPB Q24HR [facility] Rx#:[id number] Oral 480 Output: Stool 1 Other: Voiding Method Diaper Incontinent # Voids 2 2 # Bowel Movements 1 - Exam General Appearance: Alert, cooperative, no distress, this is a 70-year-old pleasant female appears stated age. Neck HEENT: Supple, no lymphadenopathy, no thyroid enlargement, no carotid bruits, mouth lesions Lungs: Clear to auscultation without crackles or wheezes, diminished no rhonchi, no deformity. Chest Wall: Chest wall normal expansion with deep inspiration no tenderness and no deformity. Heart: Regular rate and rhythm, S1, S2 normal, no murmur, rub or gallop. Back: Symmetric, no curvature, ROM normal, no CVA tenderness. Abdomen: Soft, non-tender, no rebound or rigidity, no hepatosplenomegaly. Extremities: Extremities normal, atraumatic, no cyanosis, 2+ bilateral lower extremity edema Pulses: 2+ and symmetric. Skin: Skin color, texture, tugor normal, no rashes or lesions. Neurologic: Alert oriented x3 cranial nerves II through XII intact, no motor deficit, no abnormal balance or gait. Generalized weakness - Labs CBC & Chem 7: 10/24/20 07:19 10/24/20 07:19 Labs: Abnormal Lab Results - Last 24 Hours (Table) 10/24/20 10/24/20 Range/Units 07:19 07:19 WBC 11.2 H (3.8-10.6) k/uL RBC 5.67 H (3.80-5.40) m/uL Hgb 17.5 H (11.4-16.0) gm/dL Hct 54.0 H (34.0-46.0) % RDW 17.1 H (11.5-15.5) % Plt Count 146 L (150-450) k/uL Neutrophils # 9.6 H (1.3-7.7) k/uL Lymphocytes # 0.8 L (1.0-4.8) k/uL Sodium 125 L (137-145) mmol/L Chloride 85 L (98-107) mmol/L Carbon Dioxide 36 H (22-30) mmol/L BUN 65 H (7-17) mg/dL Total Bilirubin 3.8 H (0.2-1.3) mg/dL AST 82 H (14-36) U/L ALT 89 H (4-34) U/L Alkaline Phosphatase 138 H (38-126) U/L Total Protein 5.4 L (6.3-8.2) g/dL Albumin 3.0 L (3.5-5.0) g/dL Assessment and Plan Plan: 1. Acute on chronic dyspnea secondary with acute hypoxemic respiratory failure, currently multifactorial to include amyloidosis, with cardiomyopathy, moderate right pleural effusion, acute diastolic heart failure and recent diagnosis of pericardial effusion,, consult appreciated by pulmonology, cardiology, and oncology. Patient underwent a thoracentesis with removal of 750 ML's of tarry colored fluid without difficulty. Pathology negative for malignancy. Continue Lasix 40 mg oral daily 2. Elevated troponins which is chronic, Patient had recent heart catheterization in [place] was reported as negative for obstructive disease 07/2020. Cardiology consult and repeat troponins. Echocardiogram conclusion: EF between 45 and 50%, moderate concentric left ventricular atrophy, moderate generalized pericardial effusion present, right ventricle is mildly enlarged, ileus mildly dilated, mild pulmonary hypertension. Her ventricular systolic pressure measured by Doppler is 39.15 mmHg. 3. Amyloidosis, suspect cardiac cardiac cardiomyopathy, no treatment initiated yet, oncology consult appreciated 4. Multiple myeloma. Patient completed course of dexamethasone and has started second course of dexamethasone 40 mg daily on Wednesday 10/18. No plan for [place]. 5. Transaminitis with elevated total bili / jaundice possibly secondary to cholecystitis possibly secondary to amyloid as well, 3. Hyperlipidemia. Continue Lipitor 20 mg daily. 4. Hypertension. Continu Lopressor 25 mg twice daily. 5. Hiatal hernia status post robotic-assisted laparoscopic repair of incarcerated paraesophageal hernia in April 2020, stable. 6. Mild intermittent asthma, stable. 7. Gastroesophageal reflux disease and GI prophylaxis. Continue omeprazole 20 g twice daily. 8. Generalized anxiety disorder. Continue Xanax 0.25 mg twice daily. 9. Metabolic encephalopathy most likely secondary to high-dose steroids which have been discontinued. Neurology consult. CAT scan of the brain was negative for acute findings. Carotid ultrasound ordered. 10. Lower extremity weakness. CAT scan of the lumbar spine. 11. Acute urinary tract infection. Continue Rocephin. 12. 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 Di scussed with Dr. Madrid. Viscosity serum ordered. 13. DVT prophylaxis. Heparin subcu. 14. GI prophylaxis. Protonix 40 mg 15. Mouth ulcers. Valtrex 2 g twice a day 1 day CODE STATUS: Full code Discharge plan: [facility] if insurance authorization can be obtained. Patient may go to [facility] as private pay. The above impression and plan of care have been discussed and directed by signing physician. [place] nurse practitioner acting as scribe for signing physician.
[2020-10-24] MEDS: metOLazone 2.5 MG TAB PO SCH (12:29)
[2020-10-24] MEDS: FUROSEMIDE 40 MG TAB PO SCH (12:29)
[2020-10-24] MEDS: ALPRAZolam 0.25 MG TAB PO SCH (20:06)
[2020-10-25] MEDS: PANTOPRAZOLE 40 MG TABLET PO SCH ×2 (06:19→17:46)
[2020-10-25] MEDS: METOPROLOL TARTRATE 12.5 MG TAB PO SCH (08:10)
[2020-10-25] MEDS: FUROSEMIDE 40 MG TAB PO SCH (08:10)
[2020-10-25] MEDS: SERTRALINE 50 MG TAB PO SCH (08:10)
[2020-10-25] MEDS: SPIRONOLACTONE 25 MG TAB PO SCH ×2 (08:10→20:16)
[2020-10-25] MEDS: ENOXAPARIN 40 MG/0.4 ML SYRINGE SQ SCH (08:10)
[2020-10-25] MEDS: metOLazone 2.5 MG TAB PO SCH (08:10)
--- NOTE | 2020-10-25 09:27 | P.DS ---
Providers Date of admission: 10/07/20 19:24 Expected date of discharge: 10/25/20 Attending physician: Amber Rodriguez Consults: 10/07/20 19:41 Consult Physician Routine Consulting Provider: Paresh Madrid Consult Reason/Comments: Patient known to physician Do you want consulting provider notified?: Yes, Notify in am 10/08/20 12:16 Consult Physician Routine Consulting Provider: Marko Hills Consult Reason/Comments: effusion, SOB amyloidsosi Do you want consulting provider notified?: Yes 10/12/20 14:34 Consult Physician Routine Consulting Provider: Ahmet Chavez Consult Reason/Comments: in[t rehab Do you want consulting provider notified?: Yes 10/13/20 23:01 Consult Physician Routine Consulting Provider: Len Cabrera Consult Reason/Comments: mental status changes, right lower extremity drift Do you want consulting provider notified?: Yes, Notify in am 10/17/20 09:33 Consult Physician Routine Consulting Provider: Reese Ayers Consult Reason/Comments: lower extremity weakness Do you want consulting provider notified?: Yes 10/19/20 10:13 Consult Physician Routine Consulting Provider: Ahmet Chavez Consult Reason/Comments: inpt rehab Do you want consulting provider notified?: Yes Primary care physician: [facility] Course: This 70-year-old pleasant female patient of Dr. Hand, with underlying history of paraesophageal hiatal hernia and GERD, chronic bronchial asthma, mild intermittent hypertension, hyperlipidemia, and recently diagnosed to have amyloidosis and multiple diet myeloma, through confirmedbone marrow biopsy, 2 weeks ago. He she is supposed to start treatment with Dr. Madrid this 10/11/2020. She also sees Dr. mercer, for what was suspected to be pericardial effusion. She was recently hospitalized, 08/25/2020, for shortness of breath, sees Dr. Soria cardiology and was diagnosed to have an STEMI, in, 07/17/2020, in the clinic in [facility]. She underwent a heart cath, the second time and was found to have nonobstructive CAD, diastolic CHF, EF was documented to be normal that time, and was discharged with Cozaar and Lopressor Lasix and potassium. She was admitted from our facility Jul, 2020, with chronic dyspnea secondary to restrictive cardiomyopathy, pericardial effusion, and pleural effusion, possible to get amyloidosis at that time. She now comes in to the emergency room, which shortness of breath, edema, difficulty of breathing, patient also has anasarca, generalized weakness, and fatigue, patient felt lightheaded and dizzy, patient did not pass out, has difficulty in ambulating and has difficulty in getting up when she was lowered down to the floor upon her fall, she has no appetite, denies any new weight loss, however she is gaining more weight with edema, her pulse ox at home was around 90% on room air, in the emergency room, she has no leukocytosis, with WBCs 10, hemoglobin is 18.8, creatinine of 0.9, BUN of 36, sodium 136, platelet count is 164 troponin of 0.263, alkaline phosphatase elevated to 19, AST ALT, elevated, total bili elevated 4.4. Consults were made with cardiology, and oncology for the elevated troponin, and amyloidosis, multiple myeloma echocardiogram is requested for pleural effusion,, patient has seen Dr. hills in the past, we will obtain his service, and a thoracic ultrasound 10/10: Patient is found resting comfortably in bed without any acute distress. Patient states that she is breathing better compared to yesterday. Chest CTA yesterday shows no acute PE, cardiomegaly with pericardial effusion and contrast reflux headache veins. Anasarca with small volume abdominal ascites suggested of third spacing. Small to moderate right pleural effusion. She has post thoracentesis. Ejection fraction on echocardiogram showed 45-50%. she remains on IV Lasix. Continues to have 2+ peripheral lower extremity edema. 10/11: Patient is seen today on the cardiac stepdown unit. States that she is feeling much better from yesterday. She is known to have increased lower extremity edema for which Lasix increased. Breathing status is improved today. Patient is followed by oncology, cardiology and pulmonary medicine. Repeat blood work reveals WBC 6.1, hemoglobin 16.3. Platelet count not reported. Sodium 133, potassium 5, chloride 97, CO2 29, BUN 47 and creatinine 1.05. Blood sugar 123. Repeat chest x-ray reveals small right pleural effusion and mildly decreased from 10/08. Cytology is pending. 10/12: Patient is followed by consultants pulmonary medicine, oncology and cardiology. She denies having any chest pain or shortness of breath. She is on IV Lasix. Heart rate is running in the 110 to 120s with atrial tachycardia. Cardiology has added metoprolol 12.5 mg. Patient is worked with physical therapy and she had difficulty with stairs. We will add a consult for Dr. Chavez. At this time patient will consider [place] but this is complicated because of patient requires chemotherapy and this cannot be postponed, patient will not be able to obtain subacute rehab. Repeat blood work reveals WBC 13.3, hemoglobin 16.8, platelet count 136. Sodium 132, potassium 5.0, chloride 94, CO 2 31, BUN 54 and creatinine 1.02. Total bilirubin 2.9, AST 144, ALT 117, alkaline phosphatase 188. Oncology has ordered dexamethasone 40 mg daily for 4 doses. 10/13: Patient has completed course of dexamethasone. Further plan to be determined by oncology. Orthostatics were checked and were negative and patient's nurse will recheck orthostatics this morning. Patient will be placed on Lasix 40 mg IV twice daily. Chest x-ray ordered., Pulse ox 97% on 5 L nasal cannula. Repeat blood work reveals WBC 11.1, hemoglobin 17.6, platelet count 144. Sodium 130, potassium 5.3, chloride 92, CO2 34, BUN 64 creatinine 1.04. Total bilirubin 3.8, AST 119, ALT 125, alkaline phosphatase 187. solution design and analysis manager is working on discharge planning depending on plan from oncology. Patient may be ready for discharge by tomorrow. 10/14: Cytology from pleural fluid revealed limited hypocellular specimen with rare scattered mesothelial cells and inflammatory cells. Last evening, patient had increased confusion, right lower extremity drift. Repeat CAT scan of the brain was ordered which revealed mild periventricular white matter ischemic type changes. Neurology consult was added. Patient is alert and oriented 3 and answering questions appropriately at this time. Patient noted to have increased weakness to the right lower extremity. She states she has had that since she had a fall in her home about 2 weeks ago. She states she was walking on a wood floor and slipped and fell. She denied having any lightheadedness or dizziness at the time with this. Liver ultrasound revealed At 0.45 cm. Small pericholecystic fluid present. Correlate for cholecystitis. Possible nonobstructing inferior right renal pole renal stone. Repeat chest x-ray reveals cardiomegaly. Small mild prominence of pulmonary vascular markings. Consider approaching volume overload. Oncology is following and patient completed course of steroid, 4 days. Insurance has denied subacute rehab and requiring appeared to care which will be on hold at this time. Patient is not ready for discharge. 10/15: Today, patient is complaining of weakness in her right lower extremity. She has been seen by neurology. She continues to be followed by oncology and cardiology. She underwent carotid study which does not reveal any hemodynamically significant stenosis. MRI of the brain revealed no subacute ischemia. Age related changes of atrophy and chronic small vessel ischemia. Urinalysis was cloudy, leukoesterase moderate, wbc's 22 and Rocephin will be started. Urine culture is in progress. Pleural fluid cultures have been finalized with no growth. WBC 11.8, hemoglobin 17.9 and platelet count 143. Sodium 131, potassium 5.4, chloride 90, CO2 35, BUN 82 and creatinine 1.21. Hemoglobin A1c was 6.4. Magnesium 2.1. Iron 112, TIBC 329, iron saturation 34.04. Ferritin 142.7. Total bilirubin 5.2, AST 77, ALT 112, alkaline phosphatase 173. LDH 1449. Patient's insurance has approved her for subacute rehab and oncology is holding chemotherapy while patient gets stronger. 10/16: Neurology was concerned that patient had left lower extremity weakness as we had seen right lower extremity weakness yesterday. He is concern for hyper- viscus syndrome and this was discussed with Dr. Madrid and we have ordered discussed a serum but this is not suspected per Dr. Madrid. Today patient is complaining of bilateral lower extremity weakness and MRI of the lumbar spine will be ordered. Lasix is now oral 40 mg daily starting today. Patient is not to receive any iron. She has been afebrile, heart rate 64, blood pressure 113/76, pulse ox 94% on 3 L nasal cannula. She denies having any numbness or tingling. She does complain of pain in her back. Repeat blood work reveals WBC 12.0, hemoglobin 17.6, platelet count 159. Sodium 130, potassium 5.4, chloride 90, CO2 34, BUN 84 and creatinine 0.84. Blood sugar 136. Total bilirubin 4.2, AST 77, ALT 103, alkaline phosphatase 171. 10/17: Patient states that she continues to have lower extremity weakness. MRI of the lumbar spine revealed posterior fusion surgery. First degree L4 5 spondy lolisthesis. Small posterior disc bulging and herniation at L3 4 and L5-S1. There is some lateral recess stenosis and mild spinal stenosis at L4-5 due to subluxation and facet arthropathy. Consult with orthopedic spine added. Repeat blood work reveals WBC 9.7, hemoglobin 17, platelet count 162. Sodium 133, potassium 4.8, chloride 88, CO2 41, BUN 76 and creatinine 0.95. Blood sugar 89. Patient will start her second course of Decadron tomorrow for multiple myeloma. Patient is followed by oncology and she has completed the first bolus of Decadron for 4 days and will be starting second one tomorrow. Patient has been afebrile, heart rate 73, blood pressure 108/72, pulse ox 94% on 3 L nasal cannula. Patient is not on home oxygen therapy. 10/18: The patient is seen today in follow-up. She states she is feeling better today and has worked with physical therapy. Patient is seen by orthopedic spine and no plan for any surgical intervention. Recommends conservative treatment and possible pain management follow-up and patient may follow-up with orthopedic spine as needed. Oncology has recommended continuing pulse dose dexamethasone 40 mg oral 4 days on 4 days off. Patient has been afebrile, heart rate 77, blood pressure 97/64, pulse ox 94% on 3 L nasal cannula. Patient will be discharged to [facility] once arrangements are completed. 10/19: Patient reevaluated today. Patient is deathly not safe to go home. Patient was unable to do any stairs and would have fallen if staff hadn't been there to help her up. Insurance did deny subacute rehab and will ask for Dr. Chavez to evaluate for and continued to request insurance authorization for subacute rehab as well. Patient is afebrile, heart rate 85, blood pressure 99/64, pulse ox 95% on 3 L nasal cannula. 10/20: Patient is working with physical therapy and continues to be high risk for falls. She is to person with her. Patient has been afebrile, heart rate 77, blood pressure 112/77, pulse ox 95% on 2 L nasal cannula. WBC 11.8, hemoglobin 16.7, platelet count 191. Sodium 128, potassium 5.1, chloride 86, CO2 38, BUN 76 and creatinine 0.69. Blood sugar 128. Total bilirubin 2.8, AST 97, ALT 100, alkaline phosphatase 170s. There to here review his been done with the insurance company and Dr. Liu. Insurance authorization has been verbally obtained, requesting updated therapy notes and patient will be discharged to [facility] once all arrangements are completed. 10/25: Patient denies having any dizziness today. Noted that sodium is low and sodium tablets 1 g twice daily will be added, Zaroxolyn changed to Sunday dosing and plan for outpatient nephrology follow-up. Patient has been afebrile, heart rate 67, blood pressure 106/68, pulse ox 89% on room air and 95% on 1 L. Discharge plan has been for subacute rehab. Once arrangements are completed, patient will be discharged today. Please note that oncology is only planning for high dose steroids for treatment of multiple myeloma. Assessment/plan: 1. Acute on chronic dyspnea secondary with acute hypoxemic respiratory failure, currently multifactorial to include amyloidosis, with cardiomyopathy, moderate right pleural effusion, acute diastolic heart failure and recent diagnosis of pericardial effusion, status post thoracentesis with removal of 750 ML's. Pathology negative for malignancy. 2. Elevated troponins which is chronic. Patient had recent heart catheterization in [place] was reported as negative for obstructive disease 07/2020. Echocardiogram reveals EF between 45 and 50%, moderate concentric left ventricular atrophy, moderate generalized pericardial effusion present, right ventricle is mildly enlarged, ileus mildly dilated, mild pulmonary hypertension. Her ventricular systolic pressure measured by Doppler is 39.15 mmHg. 3. Amyloidosis, suspect cardiac cardiac cardiomyopathy. 4. Multiple myeloma -- high-dose steroids. 5. Transaminitis with elevated total bili / jaundice possibly secondary to cholecystitis possibly secondary to amyloid as well. 3. Hyperlipidemia. 4. Hypertension. 5. Hiatal hernia status post robotic-assisted laparoscopic repair of incarcerated paraesophageal hernia in April 2020, stable. 6. Mild intermittent asthma, stable. 7. Gastroesophageal reflux disease. 8. Generalized anxiety disorder. 9. Metabolic encephalopathy most likely secondary to high-dose steroids. 10. Lower extremity weakness. 11. Acute urinary tract infection. 12. 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 Viscosity serum pending. 13. Chronic hypoxic respiratory failure requiring home oxygen therapy for the retirement. Discharge plan: subacute rehab Impression and plan of care have been directed as dictated by the signing physician. Lisa Davis nurse practitioner acting as scribe for signing physician. Patient Condition at Discharge: Stable Plan - Discharge Summary Discharge Rx Participant: No New Discharge Prescriptions: New Metoprolol Tartrate [Lopressor] 12.5 mg PO DAILY tab Cefuroxime Axetil [Ceftin] 500 mg PO BID 5 Days #10 tab Furosemide [Lasix] 40 mg PO DAILY #30 tablet Sodium Chloride Tab 1 gm PO BID tab metOLazone [Zaroxolyn] 2.5 mg PO MOWEFR #30 tab Dexamethasone [Decadron] 40 mg PO DAILY #240 tablet Continue Spironolactone [Aldactone] 25 mg PO BID Sertraline [Zoloft] 50 mg PO DAILY Multivitamins, Thera [Multivitamin (formulary)] 1 tab PO DAILY Omeprazole 20 mg PO BID ALPRAZolam [Xanax] 0.25 mg PO HS #3 tab Discontinued Atorvastatin [Lipitor] 20 mg PO DAILY dexAMETHasone [Dexamethasone] 20 mg PO DIRECTED Lenalidomide [Revlimid] 25 mg PO DIRECTED Ferrous Sulfate [Iron (65 MG Elemental)] 325 mg PO DAILY Metoprolol Tartrate [Lopressor] 25 mg PO BID Discharge Medication List Omeprazole 20 mg PO BID 08/24/20 [History] Multivitamins, Thera [Multivitamin (formulary)] 1 tab PO DAILY 10/07/20 [History] Sertraline [Zoloft] 50 mg PO DAILY 10/07/20 [History] Spironolactone [Aldactone] 25 mg PO BID 10/07/20 [History] ALPRAZolam [Xanax] 0.25 mg PO HS #3 tab 10/18/20 [Rx] Cefuroxime Axetil [Ceftin] 500 mg PO BID 5 Days #10 tab 10/18/20 [Rx] Furosemide [Lasix] 40 mg PO DAILY #30 tablet 10/18/20 [Rx] Metoprolol Tartrate [Lopressor] 12.5 mg PO DAILY tab 10/18/20 [Rx] Dexamethasone [Decadron] 40 mg PO DAILY #240 tablet 10/21/20 [Rx] Sodium Chloride Tab 1 gm PO BID tab 10/25/20 [Rx] metOLazone [Zaroxolyn] 2.5 mg PO MOWEFR #30 tab 10/25/20 [Rx] Follow up Appointment(s)/Referral(s): Paresh Madrid MD [STAFF PHYSICIAN] - 2 Weeks Aging,[place] [facility] [NON-STAFF] - [facility],Equipment [NON-STAFF] - Evan Liu MD [Primary Care Provider] - 1 Week () Piyush Villarreal, TORSTEN [PHYSICIAN ETL DEVELOPER] - As Needed (Patient may follow-up with Piyush Villarreal PA-C or Dr. Mike Ayers at [facility] on an as needed basis following discharge. ) [facility], [NON-STAFF] - Scottie Paz DO [STAFF PHYSICIAN] - 1 Week Discharge/Stand Alone Forms: Who Do I Call?, Help In The Home Discharge Disposition: TRANSFER TO SNF/ECF
[2020-10-25] MEDS: SODIUM CHLORIDE TAB 1 GM TAB PO SCH ×2 (10:12→20:16)
--- NOTE | 2020-10-25 12:53 | P.PN ---
Subjective Progress Note Date: 10/25/20 Principal diagnosis: Generalized weakness In f/u pt is sitting in a chair, daughters at bedside, she continues to be moderately weak, she went from bed to chair. Denies nausea but appetite is only fair, she has easy bruising but no overt bleeding to report. Objective - Vital Signs Vital signs: Vital Signs Temp 97.7 F 10/25/20 10:10 Pulse 67 10/25/20 10:10 Resp 16 10/25/20 10:10 BP 106/68 10/25/20 10:10 Pulse Ox 95 10/25/20 10:10 Intake & Output 10/24/20 10/25/20 10/25/20 18:59 06:59 18:59 Intake Total 420 830 Output Total 1 Balance 420 829 Weight 60 kg Intake: Oral 420 830 Output: Stool 1 Other: Voiding Method Diaper Diaper Incontinent Incontinent # Voids 1 1 1 # Bowel Movements 1 - Constitutional General appearance: Present: average body habitus, cooperative, mild distress - EENT Eyes: Present: EOMI, scleral icterus ENT: Present: hearing grossly normal - Respiratory Respiratory: bilateral: CTA - Cardiovascular Rhythm: regular Heart sounds: normal: S1, S2 Abnormal Heart Sounds: Absent: systolic murmur, diastolic murmur, rub, S3 Gallop, S4 Gallop, click, other - Peripheral edema leg Peripheral Edema: bilateral: None - Gastrointestinal General gastrointestinal: Present: normal bowel sounds, soft - Integumentary Integumentary: Present: normal - Neurologic Neurologic: Present: CNII-XII intact - Musculoskeletal Musculoskeletal: Present: generalized weakness - Psychiatric Psychiatric Comment(s): flat affect Psychiatric: Present: A&O x's 3 - Allied health notes Allied health notes reviewed: case management - Labs CBC & Chem 7: 10/24/20 07:19 10/24/20 07:19 Labs: Microbiology - Last 24 Hours (Table) 10/08/20 16:40 Acid Fast Bacilli Smear - Final Pleural Fluid Acid Fast Bacilli Culture - Preliminary Assessment and Plan (1) Amyloidosis Current Visit: Yes Status: Acute Priority: High Code(s): E85.9 - AMYLOIDOSIS, UNSPECIFIED SNOMED Code(s): 08412224 (2) Multiple myeloma Current Visit: Yes Status: Acute Priority: High Code(s): C90.00 - MULTIPLE MYELOMA NOT HAVING ACHIEVED REMISSION SNOMED Code(s): 118427321 (3) Transaminitis Current Visit: Yes Status: Acute Priority: High Code(s): R74.01 - ELEVATION OF LEVELS OF LIVER TRANSAMINASE LEVELS SNOMED Code(s): 658930967 (4) Light chain disease Current Visit: Yes Status: Acute Priority: High Code(s): D89.89 - OTH DISRD INVOLVING THE IMMUNE MECHANISM, NEC SNOMED Code(s): 48951884 Plan: Multiple myeloma light chain amylodosis. Pt is not going to be able to start treatment until DC from [facility] facility, she and her family are aware. She will be maintained on pulse dose dexamethasone 40mg, 4 days on and 4 days off until she is discharged back to home. After she is discharged to home she will f/u with Oncologist to be reassessed and then consider more aggressive treatment at that time. F/U appt in [place] paper work. Case discussed at length with family. Spoke with applications project manager and Nursing Time with Patient: Greater than 30
[2020-10-25 13:15] LABS: ALT 87 U/L (4-34); AST 75 U/L (14-36); African American GFR (CKD) >90 (>60 ml/min/1.73 sqM); Alkaline Phosphatase 164 U/L (38-126); Anion Gap 6 mmol/L; Blood Urea Nitrogen 59 mg/dL (7-17); Carbon Dioxide 32 mmol/L (22-30); Chloride 88 mmol/L (98-107); Glucose 122 mg/dL (74-99); Non-African American GFR(CKD) >90 (>60 ml/min/1.73 sqM); Potassium 4.4 mmol/L (3.5-5.1); Sodium 126 mmol/L (137-145); Total Protein 5.5 g/dL (6.3-8.2)
--- NOTE | 2020-10-25 14:49 | P.PN ---
Subjective Progress Note Date: 10/25/20 This 70-year-old pleasant female patient of Dr. Liu, with underlying history of paraesophageal hiatal hernia and GERD, chronic bronchial asthma, mild intermittent hypertension, hyperlipidemia, and recently diagnosed to have amyloidosis and multiple diet myeloma, through confirmedbone marrow biopsy, 2 weeks ago. He she is supposed to start treatment with Dr. Madrid this 10/11/2020. She also sees Dr. mercer, for what was suspected to be pericardial effusion. She was recently hospitalized, 08/25/2020, for shortness of breath, sees Dr. Soria cardiology and was diagnosed to have an STEMI, in, 07/17/2020, in the clinic in [facility]. She underwent a heart cath, the second time and was found to have nonobstructive CAD, diastolic CHF, EF was documented to be normal that time, and was discharged with Cozaar and Lopressor Lasix and potassium. She was admitted from our facility Jul, 2020, with chronic dyspnea secondary to restrictive cardiomyopathy, pericardial effusion, and pleural effusion, possible to get amyloidosis at that time. She now comes in to the emergency room, which shortness of breath, edema, difficulty of breathing, patient also has anasarca, generalized weakness, and fatigue, patient felt lightheaded and dizzy, patient did not pass out, has diffi culty in ambulating and has difficulty in getting up when she was lowered down to the floor upon her fall, she has no appetite, denies any new weight loss, however she is gaining more weight with edema, her pulse ox at home was around 90% on room air, in the emergency room, she has no leukocytosis, with WBCs 10, hemoglobin is 18.8, creatinine of 0.9, BUN of 36, sodium 136, platelet count is 164 troponin of 0.263, alkaline phosphatase elevated to 19, AST ALT, elevated, total bili elevated 4.4. Consults were made with cardiology, and oncology for the elevated troponin, and amyloidosis, multiple myeloma echocardiogram is requested for pleural effusion,, patient has seen Dr. hills in the past, we will obtain his service, and a thoracic ultrasound 10/10: Patient is found resting comfortably in bed without any acute distress. Patient states that she is breathing better compared to yesterday. Chest CTA yesterday shows no acute PE, cardiomegaly with pericardial effusion and contrast reflux headache veins. Anasarca with small volume abdominal ascites suggested of third spacing. Small to moderate right pleural effusion. She has post thoracentesis. Ejection fraction on echocardiogram showed 45-50%. she remains on IV Lasix. Continues to have 2+ peripheral lower extremity edema. 10/11: Patient is seen today on the cardiac stepdown unit. States that she is feeling much better from yesterday. She is known to have increased lower extremity edema for which Lasix increased. Breathing status is improved today. Patient is followed by oncology, cardiology and pulmonary medicine. Repeat blood work reveals WBC 6.1, hemoglobin 16.3. Platelet count not reported. Sodium 133, potassium 5, chloride 97, CO2 29, BUN 47 and creatinine 1.05. Blood sugar 123. Repeat chest x-ray reveals small right pleural effusion and mildly decreased from 10/08. Cytology is pending. 10/12: Patient is followed by consultants pulmonary medicine, oncology and cardiology. She denies having any chest pain or shortness of breath. She is on IV Lasix. Heart rate is running in the 110 to 120s with atrial tachycardia. Cardiology has added metoprolol 12.5 mg. Patient is worked with physical therapy and she had difficulty with stairs. We will add a consult for Dr. Filiberto jacobsen At this time patient will consider [place] but this is complicated because of patient requires chemotherapy and this cannot be postponed, patient will not be able to obtain subacute rehab. Repeat blood work reveals WBC 13.3, hemoglobin 16.8, platelet count 136. Sodium 132, potassium 5.0, chloride 94, CO2 31, BUN 54 and creatinine 1.02. Total bilirubin 2.9, AST 144, ALT 117, alkaline phosphatase 188. Oncology has ordered dexamethasone 40 mg daily for 4 doses. 10/13: Patient has completed course of dexamethasone. Further plan to be determined by oncology. Orthostatics were checked and were negative and patient's nurse will recheck orthostatics this morning. Patient will be placed on Lasix 40 mg IV twice daily. Chest x-ray ordered., Pulse ox 97% on 5 L nasal cannula. Repeat blood work reveals WBC 11.1, hemoglobin 17.6, platelet count 144. Sodium 130, potassium 5.3, chloride 92, CO2 34, BUN 64 creatinine 1.04. Total bilirubin 3.8, AST 119, ALT 125, alkaline phosphatase 187. dietary manager is working on discharge planning depending on plan from oncology. Patient may be ready for discharge by tomorrow. 10/14: Cytology from pleural fluid revealed limited hypocellular specimen with rare scattered mesothelial cells and inflammatory cells. Last evening, patient had increased confusion, right lower extremity drift. Repeat CAT scan of the brain was ordered which revealed mild periventricular white matter ischemic type changes. Neurology consult was added. Patient is alert and oriented 3 and answering questions appropriately at this time. Patient noted to have increased weakness to the right lower extremity. She states she has had that since she had a fall in her home about 2 weeks ago. She states she was walking on a wood floor and slipped and fell. She denied having any lightheadedness or dizziness at the time with this. Liver ultrasound revealed At 0.45 cm. Small pericholecystic fluid present. Correlate for cholecystitis. Possible nonobstructing inferior right renal pole renal stone. Repeat chest x-ray reveals cardiomegaly. Small mild prominence of pulmonary vascular markings. Consider approaching volume overload. Oncology is following and patient completed course of steroid, 4 days. Insurance has denied subacute rehab and requiring appeared to care which will be on hold at this time. Patient is not ready for discharge. 10/15: Today, patient is complaining of weakness in her right lower extremity. She has been seen by neurology. She continues to be followed by oncology and cardiology. She underwent carotid study which does not reveal any hemodynamically significant stenosis. MRI of the brain revealed no subacute ischemia. Age related changes of atrophy and chronic small vessel ischemia. Urinalysis was cloudy, leukoesterase moderate, wbc's 22 and Rocephin will be started. Urine culture is in progress. Pleural fluid cultures have been finalized with no growth. WBC 11.8, hemoglobin 17.9 and platelet count 143. Sodium 131, potassium 5.4, chloride 90, CO2 35, BUN 82 and creatinine 1.21. Hem oglobin A1c was 6.4. Magnesium 2.1. Iron 112, TIBC 329, iron saturation 34.04. Ferritin 142.7. Total bilirubin 5.2, AST 77, ALT 112, alkaline phosphatase 173. LDH 1449. Patient's insurance has approved her for subacute rehab and oncology is holding chemotherapy while patient gets stronger. 10/16: Neurology was concerned that patient had left lower extremity weakness as we had seen right lower extremity weakness yesterday. He is concern for hyper- viscus syndrome and this was discussed with Dr. Madrid and we have ordered discussed a serum but this is not suspected per Dr. Madrid. Today patient is complaining of bilateral lower extremity weakness and MRI of the lumbar spine will be ordered. Lasix is now oral 40 mg daily starting today. Patient is not to receive any iron. She has been afebrile, heart rate 64, blood pressure 113/76, pulse ox 94% on 3 L nasal cannula. She denies having any numbness or tingling. She does complain of pain in her back. Repeat blood work reveals WBC 12.0, hemoglobin 17.6, platelet count 159. Sodium 130, potassium 5.4, chloride 90, CO2 34, BUN 84 and creatinine 0.84. Blood sugar 136. Total bilirubin 4.2, AST 77, ALT 103, alkaline phosphatase 171. 10/17: Patient states that she continues to have lower extremity weakness. MRI of the lumbar spine revealed posterior fusion surgery. First degree L4 5 spondylolisthesis. Small posterior disc bulging and herniation at L3 4 and L5- S1. There is some lateral recess stenosis and mild spinal stenosis at L4-5 due to subluxation and facet arthropathy. Consult with orthopedic spine added. Repeat blood work reveals WBC 9.7, hemoglobin 17, platelet count 162. Sodium 133, potassium 4.8, chloride 88, CO2 41, BUN 76 and creatinine 0.95. Blood sugar 89. Patient will start her second course of Decadron tomorrow for multiple myeloma. Patient is followed by oncology and she has completed the first bolus of Decadron for 4 days and will be starting second one tomorrow. Patient has been afebrile, heart rate 73, blood pressure 108/72, pulse ox 94% on 3 L nasal cannula. Patient is not on home oxygen therapy. 10/18: The patient is seen today in follow-up. She states she is feeling better today and has worked with physical therapy. Patient is seen by orthopedic spine and no plan for any surgical intervention. Recommends conservative treatment and possible pain management follow-up and patient may follow-up with orthopedic spine as needed. Oncology has recommended continuing pulse dose dexamethasone 40 mg oral 4 days on 4 days off. Patient has been afebrile, heart rate 77, blood pressure 97/64, pulse ox 94% on 3 L nasal cannula. Patient will be discharged to [facility] once arrangements are completed. Patient did very well with physical therapy today walking 216 feet. Insurance authorization most likely will be denied and is currently in medical review. Patient is interested in going home versus subacute rehab. Patient will be discharged today in stable condition. Subsequent to that, patient had a fall. Insurance has denied patient subacute rehab at this point patient is not safe to be discharged home. Family is very upset about the current situation. Patient's discharge will be held and patient will be reevaluated tomorrow. 10/19: Patient reevaluated today. Patient is deathly not safe to go home. Patient was unable to do any stairs and would have fallen if staff hadn't been there to help her up. Insurance did deny subacute rehab and will ask for Dr. Chavez to evaluate for and continued to request insurance authorization for subacute rehab as well. Patient is afebrile, heart rate 85, blood pressure 99/64, pulse ox 95% on 3 L nasal cannula. 10/20: Patient is working with physical therapy and continues to be high risk for falls. She is to person with her. Patient has been afebrile, heart rate 77, blood pressure 112/77, pulse ox 95% on 2 L nasal cannula. WBC 11.8, hemoglobin 16.7, platelet count 191. Sodium 128, potassium 5.1, chloride 86, CO2 38, BUN 76 and creatinine 0.69. Blood sugar 128. Total bilirubin 2.8, AST 97, ALT 100, alkaline phosphatase 170s. There to here review his been done with the insurance company and Dr. Liu. Insurance authorization has been verbally obtained, requesting updated therapy notes and patient will be discharged to [facility] once all arrangements are completed. 10/21: Patient continues to work with physical therapy and is at high risk for falls. Patient has been afebrile, HR 75, BP 112/79, PO 95% on 3L. Discharge was delayed yesterday waiting for insurance authorization. Please see social work notes regarding this. Patient will be discharged to [facility] with or without insurance authorization today. No changes to her discharge medications. Patient will be discharged today in stable condition. 10/25: Patient denies having any dizziness today. Noted that sodium is low and sodium tablets 1 g twice daily will be added, Zaroxolyn changed to Sunday dosing and plan for outpatient nephrology follow-up. Patient has been afebrile, heart rate 67, blood pressure 106/68, pulse ox 89% on room air and 95% on 1 L. Discharge plan has been for subacute rehab. Once arrangements are completed, patient will be discharged tomorrow. Please note that oncology is only planning for high dose steroids for treatment of multiple myeloma. Review Of Systems: Constitutional: No fever, no chills, no night sweats. No weight change. No weakness, fatigue or lethargy. No daytime sleepiness. EENT: No headache. No blurred vision or double vision, no loss of vision. No loss of Hearing, no ringing in the ears, no dizziness. No nasal drainage or congestion. No epistaxis. No sore throat. Lungs: Reports shortness of breath improving, cough, no sputum production. No wheezing. Cardiovascular: No chest pain, no lower extremity edema. No palpitations. No paroxysmal nocturnal dyspnea. No orthopnea. No lightheadedness or dizziness. No syncopal episodes. Abdominal: no abdominal discomfort. No nausea, vomiting. no diarrhea. No constipation. No bloody or tarry stools. no loss of appetite. Genitourinary: No dysuria, increased frequency, urgency. No urinary retention. Musculoskeletal: No myalgias. Reports muscle weakness bilateral lower extremities weakness, reports gait dysfunction, high risk for falls. No back pain. No neck pain. Integumentary: No wounds, no lesions. No rash or pruritus. No unusual bruising. No change in hair or nails. Neurologic: No aphasia. No facial droop. Reported change in mentation yesterday and last evening. No head injury. No headache. No paralysis. No paresthesia. Psychiatric: No depression. No anxiety. No mood swings. Endocrine: No abnormal blood sugars. No weight change. Physical Exam: General Appearance: Alert, cooperative, no distress, this is a 70-year-old pleasant female appears stated age. Neck HEENT: Supple, no lymphadenopathy, no thyroid enlargement, no carotid bruits. Lungs: Clear to auscultation without crackles or wheezes, diminished no rhonchi, no deformity. Chest Wall: Chest wall normal expansion with deep inspiration no tenderness and no deformity was found on exam, no costochondral pain or discomfort. Heart: Regular rate and rhythm, S1, S2 normal, no murmur, rub or gallop. Back: Symmetric, no curvature, ROM normal, no CVA tenderness. Abdomen: Soft, non-tender, no rebound or rigidity, no hepatosplenomegaly. Extremities: Extremities normal, atraumatic, no cyanosis, 2+ bilateral lower extremity edema Pulses: 2+ and symmetric. Skin: Skin color, texture, tugor normal, no rashes or lesions. Neurologic: Alert oriented x3 cranial nerves II through XII intact, no motor deficit, no abnormal balance or gait. Bilateral lower extremity weakness Assessment/plan: 1. Acute on chronic dyspnea secondary with acute hypoxemic respiratory failure, currently multifactorial to include amyloidosis, with cardiomyopathy, moderate right pleural effusion, acute diastolic heart failure and recent diagnosis of pericardial effusion,, consult appreciated by pulmonology, cardiology, and oncology. Patient underwent a thoracentesis with removal of 750 ML's of tarry colored fluid without difficulty. Pathology negative for malignancy. Continue Lasix 40 mg oral daily 2. Elevated troponins which is chronic,. Patient had recent heart catheterization in [place] was reported as negative for obstructive disease 07/2020. Cardiology consult and repeat troponins. Echocardiogram conclusion: EF between 45 and 50%, moderate concentric left ventricular atrophy, moderate generalized pericardial effusion present, right ventricle is mildly enlarged, ileus mildly dilated, mild pulmonary hypertension. Her ventricular systolic pressure measured by Doppler is 39.15 mmHg. 3. Amyloidosis, suspect cardiac cardiac cardiomyopathy, no treatment initiated yet, oncology consult appreciated, 4. Multiple myeloma. Patient completed course of dexamethasone and has started second course of dexamethasone 40 mg daily on Wednesday 10/18. No plan for [place]. 5. Transaminitis with elevated total bili / jaundice possibly secondary to cho lecystitis possibly secondary to amyloid as well, 3. Hyperlipidemia. Continue Lipitor 20 mg daily. 4. Hypertension. Continu Lopressor 25 mg twice daily. 5. Hiatal hernia status post robotic-assisted laparoscopic repair of incarcerated paraesophageal hernia in April 2020, stable. 6. Mild intermittent asthma, stable. 7. Gastroesophageal reflux disease and GI prophylaxis. Continue omeprazole 20 g twice daily. 8. Generalized anxiety disorder. Continue Xanax 0.25 mg twice daily. 9. Metabolic encephalopathy most likely secondary to high-dose steroids which have been discontinued. Neurology consult. CAT scan of the brain was negative for acute findings. Carotid ultrasound ordered. 10. Lower extremity weakness. CAT scan of the lumbar spine. 11. Acute urinary tract infection. Continue Rocephin. 12. 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 Discussed with Dr. Madrid. Viscosity serum ordered. 13. DVT prophylaxis. Heparin subcu. 14. GI prophylaxis. Protonix 40 mg CODE STATUS: Full code Discharge plan: [facility] on Sunday. Impression and plan of care have been directed as dictated by the signing physician. Lisa Davis nurse practitioner acting as scribe for signing physician. Objective - Vital Signs Vital signs: Vital Signs Temp 97.7 F 10/25/20 10:10 Pulse 67 10/25/20 10:10 Resp 16 10/25/20 10:10 BP 106/68 10/25/20 10:10 Pulse Ox 95 10/25/20 10:10 Intake & Output 10/24/20 10/25/20 10/25/20 18:59 06:59 18:59 Intake Total 420 830 Output Total 1 Balance 420 829 Weight 60 kg Intake: Oral 420 830 Output: Stool 1 Other: Voiding Method Diaper Diaper Incontinent Incontinent # Voids 1 1 1 # Bowel Movements 1 - Labs CBC & Chem 7: 10/24/20 07:19 10/25/20 12:38
[2020-10-25] MEDS: ALPRAZolam 0.25 MG TAB PO SCH (20:16)
[2020-10-25 22:00] VITALS: RESP 18
[2020-10-26] MEDS: PANTOPRAZOLE 40 MG TABLET PO SCH (05:58)
[2020-10-26 08:29] VITALS: BP 101/68; PULSE 89; TEMP 98
[2020-10-26] MEDS: SODIUM CHLORIDE TAB 1 GM TAB PO SCH (08:34)
[2020-10-26] MEDS: METOPROLOL TARTRATE 12.5 MG TAB PO SCH (08:34)
[2020-10-26] MEDS: SERTRALINE 50 MG TAB PO SCH (08:34)
[2020-10-26] MEDS: metOLazone 2.5 MG TAB PO SCH (08:34)
[2020-10-26] MEDS: SPIRONOLACTONE 25 MG TAB PO SCH (08:34)
[2020-10-26] MEDS: FUROSEMIDE 40 MG TAB PO SCH (08:34)
[2020-10-26] MEDS: ENOXAPARIN 40 MG/0.4 ML SYRINGE SQ SCH (08:35)
[2020-10-26] MEDS ORDERED: dexAMETHasone 4 MG TAB PO SCH (09:00)
== END 2020-10-26 10:56 | DRG 291 ==
LOC: EC 16:30 → 3SCARD 19:24 → 3NCARDOBS 10-19 22:42
PROVIDERS: ADMIT Family Medicine; ATTEND Family Medicine
PROC: 0W993ZZ Drainage of Right Pleural Cavity, Percutaneous Approach (ICD-10-PCS; principal; 2020-10-08)
PROC: 5A1D70Z Performance of Urinary Filtration, Intermittent, Less than 6 Hours Per Day (ICD-10-PCS; 2020-10-08)
DX: I11.0 Hypertensive heart disease with heart failure (principal); I50.31 Acute diastolic (congestive) heart failure; G93.41 Metabolic encephalopathy; J96.21 Acute and chronic respiratory failure with hypoxia; C90.00 Multiple myeloma not having achieved remission; E85.9 Amyloidosis, unspecified; I31.3 Pericardial effusion (noninflammatory); R18.8 Other ascites; I47.1 Supraventricular tachycardia; R17 Unspecified jaundice; N39.0 Urinary tract infection, site not specified; K56.7 Ileus, unspecified; J91.8 Pleural effusion in other conditions classified elsewhere; I42.5 Other restrictive cardiomyopathy; E86.0 Dehydration; I25.10 Atherosclerotic heart disease of native coronary artery without angina pectoris; I25.2 Old myocardial infarction; Z87.11 Personal history of peptic ulcer disease; I44.0 Atrioventricular block, first degree; K44.9 Diaphragmatic hernia without obstruction or gangrene; E78.5 Hyperlipidemia, unspecified; J45.20 Mild intermittent asthma, uncomplicated; F41.1 Generalized anxiety disorder; R77.8 Other specified abnormalities of plasma proteins; I44.1 Atrioventricular block, second degree; W01.0XXA Fall on same level from slipping, tripping and stumbling without subsequent striking against object, initial encounter; Y92.239 Unspecified place in hospital as the place of occurrence of the external cause; T38.0X5A Adverse effect of glucocorticoids and synthetic analogues, initial encounter; F22 Delusional disorders; Z98.1 Arthrodesis status; M43.16 Spondylolisthesis, lumbar region; M47.26 Other spondylosis with radiculopathy, lumbar region; I27.20 Pulmonary hypertension, unspecified; M51.16 Intervertebral disc disorders with radiculopathy, lumbar region; Z91.81 History of falling; Z90.710 Acquired absence of both cervix and uterus; Z79.899 Other long term (current) drug therapy; K21.00 Gastro-esophageal reflux disease with esophagitis, without bleeding; F32.9 Major depressive disorder, single episode, unspecified; M48.061 Spinal stenosis, lumbar region without neurogenic claudication
CPT/HCPCS: 36415; 70450; 70551; 71045; 71046; 71275; 72148; 74177; 76604; 76705; 80048; 80053; 80074; 81001; 82140; 82248; 82542; 82607; 82728; 82746; 82784; 82945; 83036; 83540; 83550; 83605; 83615; 83735; 83880; 83883; 83921; 84134; 84157; 84165; 84484; 85025; 85027; 85610; 85730; 85810; 86334; 87070; 87075; 87077; 87086; 87102; 87116; 87186; 87205; 87206; 87252; 87496; 87498; 87502; 87529; 87634; 87798; 88108; 88305; 89050; 93005; 93306; 93880; 93970; 94760; 96361; 96374; 99285

== ENCOUNTER 2020-11-19 15:44 | Inpatient (IN) | payer MEDICARE, OTHER ==
--- NOTE | 2020-11-19 16:16 | ED ---
General Adult HPI - General Chief complaint: Shortness of Breath Stated complaint: possible CHF Time Seen by Provider: 11/19/20 15:52 Source: patient, family, EMS, RN notes reviewed Mode of arrival: EMS Limitations: no limitations - History of Present Illness Initial comments: Patient is a pleasant 70-year-old female presenting to the emergency Department with complaints of difficulty in breathing. Symptoms have progressively the past 4 days. Patient denies cough. Patient has mild leg swelling. Patient was recently discharged from the hospital secondary to congestive heart failure. Patient does have new diagnosis of multiple myeloma and has seen oncology, Dr. Odell for this. Patient hasn't yet to start treatment. There is also concern for amyloidosis. Patient had outpatient chest x-ray done today with concern for pericardial effusion. - Related Data Home Medications Medication Instructions Recorded Confirmed Omeprazole 20 mg PO BID 08/24/20 10/07/20 Multivitamins, Thera [Multivitamin 1 tab PO DAILY 10/07/20 10/07/20 (formulary)] Sertraline [Zoloft] 50 mg PO DAILY 10/07/20 10/07/20 Spironolactone [Aldactone] 25 mg PO BID 10/07/20 10/07/20 Previous Rx's Medication Instructions Recorded ALPRAZolam [Xanax] 0.25 mg PO HS #3 tab 10/18/20 Cefuroxime Axetil [Ceftin] 500 mg PO BID 5 Days #10 tab 10/18/20 Furosemide [Lasix] 40 mg PO DAILY #30 tablet 10/18/20 Metoprolol Tartrate [Lopressor] 12.5 mg PO DAILY tab 10/18/20 Dexamethasone [Decadron] 40 mg PO DAILY #240 tablet 10/21/20 Sodium Chloride Tab 1 gm PO BID tab 10/25/20 metOLazone [Zaroxolyn] 2.5 mg PO MOWEFR #30 tab 10/25/20 Allergies Allergy/AdvReac Type Severity Reaction Status Date / Time No Known Allergies Allergy Verified 11/19/20 15:45 Review of Systems ROS Statement: Those systems with pertinent positive or pertinent negative responses have been documented in the HPI. ROS Other: All systems not noted in ROS Statement are negative. Constitutional: Denies: fever Eyes: Denies: eye pain ENT: Denies: ear pain Respiratory: Reports: dyspnea. Denies: cough Cardiovascular: Denies: chest pain Endocrine: Reports: fatigue Gastrointestinal: Denies: abdominal pain Genitourinary: Denies: dysuria Skin: Denies: rash Neurological: Denies: weakness Past Medical History Past Medical History: Asthma, Chest Pain / Angina, GERD/Reflux, Hyperlipidemia, Hypertension, Myocardial Infarction ([place]) Additional Past Medical History / Comment(s): Hiatal Hernia, hx 2 ulcers in stomach; Bursitis both knees. Hx pancreatitis, SOB w/exertion due to hernia Last Myocardial Infarction Date:: 07/2020 History of Any Multi-Drug Resistant Organisms: None Reported Past Surgical History: Back Surgery, Heart Catheterization, Heart Catheterization With Stent, Hysterectomy, Orthopedic Surgery, Tonsillectomy Additional Past Surgical History / Comment(s): Back surgery with hardware, L carpal tunnel, L foot surgery, Past Anesthesia/Blood Transfusion Reactions: Previous Problems w/ Anesthesia, Motion Sickness, Postoperative Nausea & Vomiting (PONV) Additional Past Anesthesia/Blood Transfusion Reaction / Comment(s): was told stopped breathing during EGD Date of Last Stent Placement:: unknown Past Psychological History: Depression Smoking Status: Never smoker Past Alcohol Use History: Occasional Past Drug Use History: None Reported - Past Family History Mother Family Medical History: No Reported History, Asthma, Diabetes Mellitus Father Family Medical History: No Reported History Additional Family Medical History / Comment(s): Father lived to be 90yrs. Sister(s) Family Medical History: No Reported History Daughter(s) Family Medical History: No Reported History General Exam Limitations: no limitations General appearance: alert, in no apparent distress Head exam: Present: normocephalic Eye exam: Present: normal appearance Neck exam: Present: normal inspection Respiratory exam: Present: normal lung sounds bilaterally Cardiovascular Exam: Present: regular rate, normal rhythm, normal heart sounds, JVD GI/Abdominal exam: Present: soft. Absent: tenderness Extremities exam: Present: pedal edema (+1 bilateral). Absent: calf tenderness Neurological exam: Present: alert Psychiatric exam: Present: normal affect, normal mood Skin exam: Present: normal color Course Vital Signs 11/19/20 11/19/20 15:45 17:52 Temperature 97.9 F Pulse Rate 69 58 L Respiratory 16 16 Rate Blood Pressure 90/68 92/63 O2 Sat by Pulse 97 93 L Oximetry EKG Findings - EKG Comments: EKG Findings:: Normal sinus rhythm with a rate of 72. LA 152. QRS 98. QT 404. QTC 442. Superior axis. Septal Q waves with some repolarization change. Medical Decision Making - Medical Decision Making Patient reevaluated. Patient and family updated. Dr. Rodriguez has been paged for admission covering Dr. Liu. IV heparin has been started. Cardiology and pulmonary will be consulted as well as oncology. - Lab Data Result diagrams: 11/19/20 16:16 11/19/20 16:16 Lab Results 11/19/20 11/19/20 11/19/20 Range/Units 16:16 16:16 16:16 WBC 10.2 (3.8-10.6) k/uL RBC 5.36 (3.80-5.40) m/uL Hgb 16.8 H (11.4-16.0) gm/dL Hct 50.5 H (34.0-46.0) % MCV 94.2 (80.0-100.0) fL MCH 31.4 (25.0-35.0) pg MCHC 33.3 (31.0-37.0) g/dL RDW 17.4 H (11.5-15.5) % Plt Count 180 (150-450) k/uL MPV 9.4 Neutrophils % 75 % Lymphocytes % 17 % Monocytes % 5 % Eosinophils % 1 % Basophils % 1 % Neutrophils # 7.6 (1.3-7.7) k/uL Lymphocytes # 1.7 (1.0-4.8) k/uL Monocytes # 0.5 (0-1.0) k/uL Eosinophils # 0.1 (0-0.7) k/uL Basophils # 0.1 (0-0.2) k/uL Anisocytosis Slight PT 10.7 (9.0-12.0) sec INR 1.0 (<1.2) APTT 22.1 (22.0-30.0) sec D-Dimer 2.34 H (<0.60) mg/L FEU Sodium 128 L (137-145) mmol/L Potassium 4.6 (3.5-5.1) mmol/L Chloride 92 L (98-107) mmol/L Carbon Dioxide 29 (22-30) mmol/L Anion Gap 7 mmol/L BUN 43 H (7-17) mg/dL Creatinine 0.61 (0.52-1.04) mg/dL Est GFR (CKD-EPI)AfAm >90 (>60 ml/min/1.73 sqM) Est GFR (CKD-EPI)NonAf >90 (>60 ml/min/1.73 sqM) Glucose 101 H (74-99) mg/dL Plasma Lactic Acid Gonzalo (0.7-2.0) mmol/L Calcium 9.4 (8.4-10.2) mg/dL Magnesium 1.9 (1.6-2.3) mg/dL Total Bilirubin 2.7 H (0.2-1.3) mg/dL AST 59 H (14-36) U/L ALT 122 H (4-34) U/L Alkaline Phosphatase 222 H (38-126) U/L Creatine Kinase <20 L (30-135) U/L CK-MB (CK-2) (0.0-2.4) ng/mL Troponin I (0.000-0.034) ng/mL NT-Pro-B Natriuret Pep pg/mL Total Protein 5.6 L (6.3-8.2) g/dL Albumin 3.0 L (3.5-5.0) g/dL 11/19/20 11/19/20 11/19/20 Range/Units 16:16 16:16 16:16 WBC (3.8-10.6) k/uL RBC (3.80-5.40) m/uL Hgb (11.4-16.0) gm/dL Hct (34.0-46.0) % MCV (80.0-100.0) fL MCH (25.0-35.0) pg MCHC (31.0-37.0) g/dL RDW (11.5-15.5) % Plt Count (150-450) k/uL MPV Neutrophils % % Lymphocytes % % Monocytes % % Eosinophils % % Basophils % % Neutrophils # (1.3-7.7) k/uL Lymphocytes # (1.0-4.8) k/uL Monocytes # (0-1.0) k/uL Eosinophils # (0-0.7) k/uL Basophils # (0-0.2) k/uL Anisocytosis PT (9.0-12.0) sec INR (<1.2) APTT (22.0-30.0) sec D-Dimer (<0.60) mg/L FEU Sodium (137-145) mmol/L Potassium (3.5-5.1) mmol/L Chloride (98-107) mmol/L Carbon Dioxide (22-30) mmol/L Anion Gap mmol/L BUN (7-17) mg/dL Creatinine (0.52-1.04) mg/dL Est GFR (CKD-EPI)AfAm (>60 ml/min/1.73 sqM) Est GFR (CKD-EPI)NonAf (>60 ml/min/1.73 sqM) Glucose (74-99) mg/dL Plasma Lactic Acid Gonzalo 1.3 (0.7-2.0) mmol/L Calcium (8.4-10.2) mg/dL Magnesium (1.6-2.3) mg/dL Total Bilirubin (0.2-1.3) mg/dL AST (14-36) U/L ALT (4-34) U/L Alkaline Phosphatase (38-126) U/L Creatine Kinase (30-135) U/L CK-MB (CK-2) 3.8 H (0.0-2.4) ng/mL Troponin I 0.188 H* (0.000-0.034) ng/mL NT-Pro-B Natriuret Pep [id number] pg/mL Total Protein (6.3-8.2) g/dL Albumin (3.5-5.0) g/dL - Radiology Data Radiology results: report reviewed (As discussed with radiologist:Bilateral lower lobe emboli. CHF/pulmonary edema.), image reviewed (X-ray shows mild CHF.) Critical Care Time Critical Care Time: Yes Total Critical Care Time: 33 Disposition Clinical Impression: Congestive heart failure, Pulmonary embolism Disposition: ADMITTED IP TO THIS [facility] Condition: Serious Is patient prescribed a controlled substance at d/c from ED?: No Referrals: Evan Liu MD [Primary Care Provider] - 1-2 days Decision Time: 20:10
[2020-11-19 16:35] LABS: Anisocytosis Slight; Basophils # (A) 0.1 k/uL (0-0.2); Basophils % (A) 1 %; Eosinophils # (A) 0.1 k/uL (0-0.7); Eosinophils % (A) 1 %; HCT 50.5 % (34.0-46.0); HGB 16.8 gm/dL (11.4-16.0); Lymphocytes # (A) 1.7 k/uL (1.0-4.8); Lymphocytes % (A) 17 %; MCH 31.4 pg (25.0-35.0); MCHC 33.3 g/dL (31.0-37.0); MCV 94.2 fL (80.0-100.0); Mean Platelet Volume 9.4; Monocytes # (A) 0.5 k/uL (0-1.0); Monocytes % (A) 5 %; Neutrophils # (A) 7.6 k/uL (1.3-7.7); Neutrophils % (A) 75 %; Platelet Count 180 k/uL (150-450); RBC 5.36 m/uL (3.80-5.40); RDW 17.4 % (11.5-15.5); WBC 10.2 k/uL (3.8-10.6)
[2020-11-19 16:44] LABS: ALT 122 U/L (4-34); AST 59 U/L (14-36); African American GFR (CKD) >90 (>60 ml/min/1.73 sqM); Alkaline Phosphatase 222 U/L (38-126); Anion Gap 7 mmol/L; Blood Urea Nitrogen 43 mg/dL (7-17); Calcium 9.4 mg/dL (8.4-10.2); Carbon Dioxide 29 mmol/L (22-30); Chloride 92 mmol/L (98-107); Creatine Kinase <20 U/L (30-135); Glucose 101 mg/dL (74-99); Magnesium 1.9 mg/dL (1.6-2.3); Non-African American GFR(CKD) >90 (>60 ml/min/1.73 sqM); Potassium 4.6 mmol/L (3.5-5.1); Sodium 128 mmol/L (137-145); Total Bilirubin 2.7 mg/dL (0.2-1.3); Total Protein 5.6 g/dL (6.3-8.2)
[2020-11-19 16:55] LABS: Creatine Kinase MB 3.8 ng/mL (0.0-2.4)
[2020-11-19 17:06] LABS: Troponin I 0.188 ng/mL (0.000-0.034)
--- NOTE | 2020-11-19 17:47 | XR ---
EXAMINATION TYPE: XR chest 2V DATE OF EXAM: 11/19/2020 COMPARISON: 10/13/2020 HISTORY: Difficulty breathing TECHNIQUE: 2 views FINDINGS: Heart is enlarged. There is minimal pulmonary congestion. There is blunting right costophre beto angle. There are no hilar masses. Bony thorax is intact. IMPRESSION: There is evidence for some mild congestive heart failure with chronic pleural effusion. P ulmonary congestion slightly increased compared to old exam.
[2020-11-19 17:50] LABS: Partial Thromboplastin Time 22.1 sec (22.0-30.0); Prothrombin Time 10.7 sec (9.0-12.0)
--- NOTE | 2020-11-19 19:44 | CT ---
EXAMINATION TYPE: CT angio chest DATE OF EXAM: 11/19/2020 COMPARISON: HISTORY: SOB CT DLP: 246.3 mGycm Automated exposure control for dose reduction was used. CONTRAST: Performed with IV Contrast, patient injected with 100 mL of Isovue 370. Images obtained from the thoracic inlet to the diaphragm with IV contrast. There is patchy pulmonary interstitial groundglass infiltrates. This is seen in the upper and lower l obes bilaterally. Heart is enlarged. There is small pericardial effusion. There is small right pleura l effusion. There is reflux of contrast into the inferior vena cava. There is no mediastinal adenopathy. Ascending aorta measures 3.7 cm. There is no dissection. There is small filling defect within the right lower lobe pulmonary artery involving the posterior basal segm ent branch. There is also small filling defect in the anterior basal segment branch of the left lower lobe pulmonary artery. The bony thorax appears intact. There is no compression fracture. There are s pondylotic changes in the mid and lower thoracic spine. IMPRESSION: There is bilateral small lower lobe pulmonary emboli which appear new compared to old exam. Changes of congestive heart failure and pulmonary edema. Right pleural effusion. Moderate cardiomegal y. Pericardial effusion. Heart failure probably not changed compared to old exam. Groundglass pulmona ry interstitial edema is increased compared to old exam. This exam was discussed with Sheng Brito at 7 40 p.m.
[2020-11-19] MEDS ORDERED: HEPARIN SODIUM 1,000 UN/ML (10ML VL) IV ONE (20:08)
[2020-11-19] MEDS ORDERED: HEPARIN SODIUM 1,000 UN/ML (10ML VL) IV PRN (20:08)
[2020-11-19] MEDS ORDERED: ASPIRIN 325 MG TAB PO STA ×2 (20:10→20:27)
[2020-11-19] MEDS ORDERED: HEPARIN SOD,PORK IN 0.45% NACL 25,000 UNIT in 0.45% NACL 1 250ML.BAG IV SCH (20:15)
[2020-11-19] MEDS ORDERED: SODIUM CHLORIDE 0.9% 500 ML 500 ML IV ONE ×2 (22:51→23:52)
[2020-11-20] MEDS ORDERED: IPRATROPIUM-ALBUTEROL 3 ML NEB INHALATION PRN (01:58)
[2020-11-20] MEDS ORDERED: SODIUM CHLORIDE 0.9% 500 ML 500 ML IV ONE (01:58)
[2020-11-20] MEDS ORDERED: methylPREDNISolone SOD SUCCI 125 MG/2 ML VIAL IV STA (01:58)
[2020-11-20 02:43] LABS: Anisocytosis Slight; HCT 45.9 % (34.0-46.0); MCH 31.1 pg (25.0-35.0); MCHC 32.8 g/dL (31.0-37.0); MCV 94.9 fL (80.0-100.0); Macrocytosis Slight; Mean Platelet Volume 9.3; Platelet Count 179 k/uL (150-450); RBC 4.83 m/uL (3.80-5.40); RDW 18.1 % (11.5-15.5); WBC 9.9 k/uL (3.8-10.6)
[2020-11-20 03:15] LABS: Band Neutrophils % 5 %; Lymphocytes # (M) 1.58 k/uL (1.0-4.8); Monocytes # (M) 0.79 k/uL (0-1.0); Neutrophils % (M) 70 %; Nucleated Red Blood Cells 0 /100 WBC (0-0); Total Cells Counted 100
[2020-11-20 03:16] LABS: Anisocytosis (M) Present; Toxic Granulation Present
[2020-11-20] MEDS ORDERED: methylPREDNISolone SOD SUCCI 125 MG/2 ML VIAL IV SCH (06:00)
[2020-11-20] MEDS: IPRATROPIUM-ALBUTEROL 3 ML NEB INHALATION SCH ×2 (07:36→11:45)
--- NOTE | 2020-11-20 10:18 | P.CNPUL ---
History of Present Illness Consult date: 11/20/20 Reason for consult: dyspnea Chief complaint: dyspnea History of present illness: This is a 70-year-old female who we recently saw in consultation for shortness of breath, and right-sided pleural effusion in the beginning of September 2020 and patient underwent right-sided thoracentesis for symptomatic relief on 10/08/2020 with removal of 700 mL of pleural fluid, she was transudative, with negative cultures and pleural fluid cytology was nondiagnostic. Patient has had several hospitalizations recently for some breath related to acute systolic CHF. She has a long and complicated medical history. During one of her previous hospitalizations patient also had moderately sized pericardial effusion, without evidence of cardiac tamponade. Patient was recently diagnosed with multiple myeloma, he has not started treatment yet. Seen in consultation by medical oncology who recommended starting the patient on Revlimid. Patient also had a hospitalization in [place] earlier in the year where she had the ST elevated my ocardial infarction, and cardiac catheterization with no specific intervention. Echocardiogram showed a small pericardial effusion without definite compromise, but the appearance of myocardium was suspicious for amyloidosis, and there is a family history of amyloidosis in her mother and a paternal aunt. Echocardiogram showed ejection fraction of 45-50%, inferior LV wall hypokinesis, and inferior septal wall hypokinesis. Patient's CHF was optimized, she was discharged to [facility] on 10/25/2020 for rehab. she was not requiring oxygen at the F, she noted increased shortness of breath and swelling in her lower extremities. She denied any chest pain, denied any cough or congestion, she is not sure whether she was receiving Lasix at the [facility]. She states she was doing well following h er discharge to [facility], she was able to ambulate and participate with physical therapy. On 11/19/2020 patient was brought in to the emergency department per EMS with complaints of difficulty in breathing. Her symptoms have been progressively worse in the past 4 days. Chest X-ray showed mild CHF, CTA chest was completed showing changes of congestive heart failure and pulmonary edema, small right pleural effusion, small pericardial effusion. There was a patchy pulmonary interstitial groundglass infiltrates. There was a small filling defect within the right lower lobe pulmonary artery involving the posterior basal segment branch consistent with a PE. Hemodynamically patient was having some hypotension with the systolic blood pressures in the 70s and diastolic in the 50s. She has been afebrile. Clinically on 3 L of oxygen and pulse ox 94%, her labs have been reviewed, showing white blood cell, 10.2, hemoglobin of 16.8, hematocrit was 50.7, d-dimer is 2.34, sodium was 128, potassium was 4.6, B1 is 43, creatinine 0.61, patient had elevation of her liver enzymes with AST of 59, ALT of 122, alkaline phosphatase of 222, she had troponin elevation which topped out at 0.188, her proBNP was elevated at 17,000.Eevated proBNP suggested acute CHF, clinically patient appears to be hypovolemic, and she was given gentle hydration of 1 L maintain her blood pressure. She was started on heparin infusion for pulmonary embolism. This morning she seen in the emergency department, she is short of breath at rest, but no acute distress, she remains on 4 L of oxygen. Currently blood pressure is 90/64, she is in sinus rhythm with a rate of 84, no complaints of chest pain, lung sounds revealed coarse crackles throughout bilateral bases, she has mild swelling in her lower extremities. Review of Systems All systems: negative Constitutional: Denies chills, Denies fever Eyes: denies blurred vision, denies pain Ears, nose, mouth and throat: Denies headache, Denies sore throat Cardiovascular: Reports decreased exercise tolerance, Reports dyspnea on exertion, Reports edema, Reports shortness of breath, Denies chest pain Respiratory: Reports dyspnea, Denies cough Gastrointestinal: Denies abdominal pain, Denies diarrhea, Denies nausea, Denies vomiting Genitourinary: Denies dysuria, Denies hematuria Musculoskeletal: Denies myalgias Integumentary: Denies pruritus, Denies rash Neurological: Denies numbness, Denies weakness Psychiatric: Denies anxiety, Denies depression Endocrine: Denies fatigue, Denies weight change Past Medical History Past Medical History: Asthma, Chest Pain / Angina, GERD/Reflux, Hyperlipidemia, Hypertension, Myocardial Infarction ([place]) Additional Past Medical History / Comment(s): Hiatal Hernia, hx 2 ulcers in stomach; Bursitis both knees. Hx pancreatitis, SOB w/exertion due to hernia Last Myocardial Infarction Date:: 07/2020 History of Any Multi-Drug Resistant Organisms: None Reported Past Surgical History: Back Surgery, Heart Catheterization, Heart Catheterization With Stent, Hysterectomy, Orthopedic Surgery, Tonsillectomy Additional Past Surgical History / Comment(s): Back surgery with hardware, L carpal tunnel, L foot surgery, Past Anesthesia/Blood Transfusion Reactions: Previous Problems w/ Anesthesia, Motion Sickness, Postoperative Nausea & Vomiting (PONV) Additional Past Anesthesia/Blood Transfusion Reaction / Comment(s): was told stopped breathing during EGD Date of Last Stent Placement:: unknown Past Psychological History: Depression Smoking Status: Never smoker Past Alcohol Use History: Occasional Past Drug Use History: None Reported - Past Family History Mother Family Medical History: No Reported History, Asthma, Diabetes Mellitus Father Family Medical History: No Reported History Additional Family Medical History / Comment(s): Father lived to be 90yrs. Sister(s) Family Medical History: No Reported History Daughter(s) Family Medical History: No Reported History Medications and Allergies Home Medications Medication Instructions Recorded Confirmed Type Omeprazole 20 mg PO BID 08/24/20 11/19/20 History Multivitamins, Thera [Multivitamin 1 tab PO DAILY 10/07/20 11/19/20 History (formulary)] Sertraline [Zoloft] 50 mg PO DAILY 10/07/20 11/19/20 History Spironolactone [Aldactone] 25 mg PO BID 10/07/20 11/19/20 History ALPRAZolam [Xanax] 0.25 mg PO HS #3 tab 10/18/20 11/19/20 Rx Furosemide [Lasix] 40 mg PO DAILY #30 tablet 10/18/20 11/19/20 Rx Metoprolol Tartrate [Lopressor] 12.5 mg PO DAILY tab 10/18/20 11/19/20 Rx Acetaminophen [Tylenol 8 Hour] 650 mg PO Q4H PRN 11/19/20 11/19/20 History Allergies Allergy/AdvReac Type Severity Reaction Status Date / Time No Known Allergies Allergy Verified 11/19/20 21:34 Physical Exam Vitals: Vital Signs Temp Pulse Resp BP Pulse Ox 11/20/20 07:58 81 16 107/69 94 L 11/20/20 07:48 80 11/20/20 07:38 78 11/20/20 06:50 97.5 F L 79 18 94/66 94 L 11/20/20 03:51 79 18 97/63 92 L 11/20/20 03:29 98.2 F 79 16 88/62 94 L 11/20/20 02:37 78 11/20/20 02:27 77 11/20/20 02:04 77 18 87/60 93 L 11/20/20 01:30 86/63 11/20/20 00:10 76/54 11/19/20 23:55 77 16 80/54 95 11/19/20 22:55 83/53 11/19/20 22:42 79/56 11/19/20 21:55 86/53 11/19/20 20:28 68 16 88/62 94 L 11/19/20 17:52 58 L 16 92/63 93 L 11/19/20 15:45 97.9 F 69 16 90/68 97 Intake and Output 11/19/20 11/20/20 11/20/20 22:59 06:59 14:59 Intake Total 81.323 Balance 81.323 Intake: Intake, IV Titration 81.323 Amount Heparin Sod,Pork in 0.45% 81.323 NaCl 25,000 unit In 0.45 % NaCl 1 250ml.bag @ 18 UNITS/KG/HR 9.798 mls/hr IV .Q24H [facility] Rx#: [id number] Other: Weight 54.431 kg - Constitutional General appearance: no acute distress - EENT Eyes: PERRLA ENT: NA/AT Ears: bilateral: normal - Neck Neck: no lymphadenopathy, normal ROM Carotids: bilateral: upstroke normal - Respiratory Respiratory: bilateral: rales - Cardiovascular Rhythm: regular Heart sounds: normal: S1, S2 leg Peripheral Edema: bilateral: None ankle Peripheral Edema: bilateral: 1+ foot Peripheral Edema: bilateral: 1+ - Gastrointestinal General gastrointestinal: no organomegaly, soft, no tenderness - Integumentary Integumentary: normal turgor - Neurologic Neurologic: CNII-XII intact - Musculoskeletal Musculoskeletal: generalized weakness, strength equal bilaterally - Psychiatric Psychiatric: A&O x's 3, appropriate affect, intact judgment & insight Results - Laboratory Findings CBC and BMP: 11/20/20 02:04 11/19/20 16:16 ABG WBC 9.9 k/uL (3.8-10.6) 11/20/20 02:04 RBC 4.83 m/uL (3.80-5.40) 11/20/20 02:04 Hgb 15.0 gm/dL (11.4-16.0) 11/20/20 02:04 Hct 45.9 % (34.0-46.0) 11/20/20 02:04 MCV 94.9 fL (80.0-100.0) 11/20/20 02:04 MCH 31.1 pg (25.0-35.0) 11/20/20 02:04 MCHC 32.8 g/dL (31.0-37.0) 11/20/20 02:04 RDW 18.1 % (11.5-15.5) H 11/20/20 02:04 Plt Count 179 k/uL (150-450) 11/20/20 02:04 MPV 9.3 11/20/20 02:04 Neutrophils % 75 % 11/19/20 16:16 Neutrophils % (Manual) 70 % 11/20/20 02:04 Band Neuts % (Manual) 5 % 11/20/20 02:04 Lymphocytes % 17 % 11/19/20 16:16 Lymphocytes % (Manual) 16 % 11/20/20 02:04 Monocytes % 5 % 11/19/20 16:16 Monocytes % (Manual) 8 % 11/20/20 02:04 Eosinophils % 1 % 11/19/20 16:16 Eosinophils % (Manual) 1 % 11/20/20 02:04 Basophils % 1 % 11/19/20 16:16 Neutrophils # 7.6 k/uL (1.3-7.7) 11/19/20 16:16 Neutrophils # (Manual) 7.40 k/uL (1.3-7.7) 11/20/20 02:04 Lymphocytes # 1.7 k/uL (1.0-4.8) 11/19/20 16:16 Lymphocytes # (Manual) 1.58 k/uL (1.0-4.8) 11/20/20 02:04 Monocytes # 0.5 k/uL (0-1.0) 11/19/20 16:16 Monocytes # (Manual) 0.79 k/uL (0-1.0) 11/20/20 02:04 Eosinophils # 0.1 k/uL (0-0.7) 11/19/20 16:16 Eosinophils # (Manual) 0.10 k/uL (0-0.7) 11/20/20 02:04 Basophils # 0.1 k/uL (0-0.2) 11/19/20 16:16 Nucleated RBCs 0 /100 WBC (0-0) 11/20/20 02:04 Manual Slide Review Performed 11/20/20 02:04 Toxic Granulation Present 11/20/20 02:04 Anisocytosis Slight 11/20/20 02:04 Anisocytosis (manual) Present 11/20/20 02:04 Macrocytosis Slight 11/20/20 02:04 PT 10.7 sec (9.0-12.0) 11/19/20 16:16 INR 1.0 (<1.2) 11/19/20 16:16 APTT 188.2 sec (22.0-30.0) H* 11/20/20 02:04 D-Dimer 2.34 mg/L FEU (<0.60) H 11/19/20 16:16 Sodium 128 mmol/L (137-145) L 11/19/20 16:16 Potassium 4.6 mmol/L (3.5-5.1) 11/19/20 16:16 Chloride 92 mmol/L (98-107) L 11/19/20 16:16 Carbon Dioxide 29 mmol/L (22-30) 11/19/20 16:16 Anion Gap 7 mmol/L 11/19/20 16:16 BUN 43 mg/dL (7-17) H 11/19/20 16:16 Creatinine 0.61 mg/dL (0.52-1.04) 11/19/20 16:16 Est GFR (CKD-EPI)AfAm >90 (>60 ml/min/1.73 sqM) 11/19/20 16:16 Est GFR (CKD-EPI)NonAf >90 (>60 ml/min/1.73 sqM) 11/19/20 16:16 Glucose 101 mg/dL (74-99) H 11/19/20 16:16 Plasma Lactic Acid Gonzalo 1.3 mmol/L (0.7-2.0) 11/19/20 16:16 Calcium 9.4 mg/dL (8.4-10.2) 11/19/20 16:16 Magnesium 1.9 mg/dL (1.6-2.3) 11/19/20 16:16 Total Bilirubin 2.7 mg/dL (0.2-1.3) H 11/19/20 16:16 AST 59 U/L (14-36) H 11/19/20 16:16 ALT 122 U/L (4-34) H 11/19/20 16:16 Alkaline Phosphatase 222 U/L (38-126) H 11/19/20 16:16 Creatine Kinase <20 U/L (30-135) L 11/19/20 16:16 CK-MB (CK-2) 3.8 ng/mL (0.0-2.4) H 11/19/20 16:16 Troponin I 0.175 ng/mL (0.000-0.034) H* 11/20/20 00:00 NT-Pro-B Natriuret Pep 78022 pg/mL 11/19/20 16:16 Total Protein 5.6 g/dL (6.3-8.2) L 11/19/20 16:16 Albumin 3.0 g/dL (3.5-5.0) L 11/19/20 16:16 PT/INR, D-dimer PT 10.7 sec (9.0-12.0) 11/19/20 16:16 INR 1.0 (<1.2) 11/19/20 16:16 D-Dimer 2.34 mg/L FEU (<0.60) H 11/19/20 16:16 Abnormal lab findings: Abnormal Labs 11/19/20 11/19/20 11/19/20 16:16 16:16 16:16 Hgb 16.8 H Hct 50.5 H RDW 17.4 H APTT D-Dimer 2.34 H Sodium 128 L Chloride 92 L BUN 43 H Glucose 101 H Total Bilirubin 2.7 H AST 59 H ALT 122 H Alkaline Phosphatase 222 H Creatine Kinase <20 L CK-MB (CK-2) Troponin I Total Protein 5.6 L Albumin 3.0 L 11/19/20 11/19/20 11/20/20 16:16 21:28 00:00 Hgb Hct RDW APTT D-Dimer Sodium Chloride BUN Glucose Total Bilirubin AST ALT Alkaline Phosphatase Creatine Kinase CK-MB (CK-2) 3.8 H Troponin I 0.188 H* 0.187 H* 0.175 H* Total Protein Albumin 11/20/20 11/20/20 02:04 02:04 Hgb Hct RDW 18.1 H APTT 188.2 H* D-Dimer Sodium Chloride BUN Glucose Total Bilirubin AST ALT Alkaline Phosphatase Creatine Kinase CK-MB (CK-2) Troponin I Total Protein Albumin - Diagnostic Findings Chest x-ray: report reviewed, image reviewed CT scan - chest: report reviewed, image reviewed Assessment and Plan Plan: Assessment: #1. Acute on chronic dyspnea and acute hypoxic respiratory failure, multifactorial, related to chronic CHF, with EF of 45%,, chronic generalized pericardial effusion, amyloidosis, and small pleural effusion. #2. Pulmonary embolism, acute, CTA chest showed small segmental filling defect in the right lower lobe #3. Multiple readmissions to the hospital recently, for acute exacerbation of CHF, was recently discharged to [facility] on 10/25/2020 #4. Small right pleural effusion, no need for drainage. Patient previously undergone right-sided thoracentesis with a transudate of fluid, nondiagnostic cytology, and negative cultures. This was done on 10/08/[address] Lewis #5. Amyloidosis, with restrictive cardiomyopathy, has not started treatment yet. #6. Multiple myeloma, recently diagnosed, has not started treatment #7. History of myocardial infarction #8. Retention #9. Hyperlipidemia #10. Intermittent asthma, currently stable #11. Generalized anxiety disorder Plan: Hold Lasix Patient was even gentle hydration, blood pressure has improved We'll discontinue heparin drip, start the patient on Eliquis Obtain bilateral lower extremity Dopplers Chest x-ray and CTA chest reviewed, no need for thoracente thoracentesis at this time Echo is pending Time with Patient: Greater than 30
--- NOTE | 2020-11-20 11:02 | P.CRDCN ---
History of Present Illness Consult date: 11/20/20 Consult reason: congestive heart failure History of present illness: The patient is a 70-year-old female with multiple complex medical issues, who presented to the hospital with worsening shortness of breath. She states this has progressively gotten worse over the last week along with increased fatigue. The patient was admitted to the hospital in early September for congestive heart failure which she ultimately underwent right-sided thoracentesis. She was also noted at that time to have an EF of 45% and moderate size pericardial effusion, which is thought to be chronic. During this hospitalization she was subsequently diagnosed with multiple myeloma as well as possible cardiac amyloidosis. She was subsequently discharged to [facility] on home oxygen. She was brought to the emergency room for difficulty breathing. Denies any chest pain or chest pressure. No palpitations, dizziness, or lightheadedness. Chest x-ray showed mild congestive heart failure. CT of the chest shows pulmonary edema, small right pleural effusion, and pericardial effusion, as well as small bilateral pulmonary emboli. On exam the patient is resting comfortably in bed. She believes she is breathing better since her arrival to the emergency room. She is tired and fatigued. Slow to respond to questioning. DIAGNOSTICS: EKG shows sinus mechanism with prior anterior infarct Chest x-ray shows mild congestive heart failure with chronic pleural effusion CT of the chest shows patchy pulmonary interstitial groundglass infiltrates with small pericardial effusion and small right pleural effusion. Small bilateral lower lobe pulmonary emboli which are new compared to old exam. Ascending aorta 3.7cm. Laboratory data WBC 9.9, hemoglobin 15.0, hematocrit 45.9, platelet 179, sodium 128, potassium 4.6, BUN 43, creatinine 0.61, AST 59, ALT 122, ALP 222, CK MB 3.8 , troponin 0.18, 0.18, 0.17, BNP 17,000 Vital signs: Pulse 81, respiratory rate 16, BP 107/69, O2 94% on 3 L nasal cannula PAST MEDICAL HISTORY: Unspecified cardiomyopathy, congestive heart failure, chronic pericardial effusion, CVA, multiple myeloma REVIEW OF SYSTEMS: No fever or chills. No cough or expectoration. No diaphoresis. Patient denies headache, dizziness, blurred vision, double vision. Patient denies any stomach discomfort. No nausea, vomiting. No hematochezia. No hematemesis. Denies any black stools or blood in his stools. Denies dysuria or hematuria. No muscle weakness or numbness. PHYSICAL EXAMINATION: This is a 70-year-old female in no apparent distress at the time of my examination. HEENT: Head is atraumatic, normocephalic. Pupils are equal, round. Sclerae anicteric. Conjunctivae are clear. Mucous membranes of the mouth are moist. Neck is supple. There is no jugular venous distention. No carotid bruit is heard. CHEST EXAMINATION: Diffuse crackles throughout left lobe and right lower lobe. No chest wall tenderness is noted on palpation or with deep breathing. HEART EXAMINATION: Heart regular rate and rhythm. S1, S2 heard. No murmurs, gallops or rub. ABDOMEN: Soft, nontender. Bowel sounds are heard. No organomegaly noted. EXTREMITIES: 2+ peripheral pulses. Mild generalized edema and no calf tenderness noted. NEUROLOGIC EXAMINATION: Patient is awake, alert and oriented x3. Slow to respond Left-sided weakness, residual from prior CVA FINAL ASSESSMENT AND PLAN: Systolic and diastolic congestive heart failure, acute on chronic, BNP 17,000 Nonischemic cardiomyopathy Chronic pericardial effusion, unchanged Amyloidosis Multiple myeloma Hyponatremia Transaminases PLAN: Echocardiogram pending Continue anticoagulation for bilateral pulmonary emboli; mgmt per hematology Diuresis per pulmonology Strict I's and O's Further recommendations to be based upon clinical course The patient has been seen and evaluated. Plan of care has been reviewed and ag iqra upon by Dr Albert. Past Medical History Past Medical History: Asthma, Chest Pain / Angina, GERD/Reflux, Hyperlipidemia, Hypertension, Myocardial Infarction ([place]) Additional Past Medical History / Comment(s): Hiatal Hernia, hx 2 ulcers in stomach; Bursitis both knees. Hx pancreatitis, SOB w/exertion due to hernia Last Myocardial Infarction Date:: 07/2020 History of Any Multi-Drug Resistant Organisms: None Reported Past Surgical History: Back Surgery, Heart Catheterization, Heart Catheterization With Stent, Hysterectomy, Orthopedic Surgery, Tonsillectomy Additional Past Surgical History / Comment(s): Back surgery with hardware, L carpal tunnel, L foot surgery, Past Anesthesia/Blood Transfusion Reactions: Previous Problems w/ Anesthesia, Motion Sickness, Postoperative Nausea & Vomiting (PONV) Additional Past Anesthesia/Blood Transfusion Reaction / Comment(s): was told st opped breathing during EGD Date of Last Stent Placement:: unknown Past Psychological History: Depression Smoking Status: Never smoker Past Alcohol Use History: Occasional Past Drug Use History: None Reported - Past Family History Mother Family Medical History: No Reported History, Asthma, Diabetes Mellitus Father Family Medical History: No Reported History Additional Family Medical History / Comment(s): Father lived to be 90yrs. Sister(s) Family Medical History: No Reported History Daughter(s) Family Medical History: No Reported History Medications and Allergies Home Medications Medication Instructions Recorded Confirmed Type Omeprazole 20 mg PO BID 08/24/20 11/19/20 History Multivitamins, Thera [Multivitamin 1 tab PO DAILY 10/07/20 11/19/20 History (formulary)] Sertraline [Zoloft] 50 mg PO DAILY 10/07/20 11/19/20 History Spironolactone [Aldactone] 25 mg PO BID 10/07/20 11/19/20 History ALPRAZolam [Xanax] 0.25 mg PO HS #3 tab 10/18/20 11/19/20 Rx Furosemide [Lasix] 40 mg PO DAILY #30 tablet 10/18/20 11/19/20 Rx Metoprolol Tartrate [Lopressor] 12.5 mg PO DAILY tab 10/18/20 11/19/20 Rx Acetaminophen [Tylenol 8 Hour] 650 mg PO Q4H PRN 11/19/20 11/19/20 History Allergies Allergy/AdvReac Type Severity Reaction Status Date / Time No Known Allergies Allergy Verified 11/19/20 21:34 Physical Exam Vitals: Vital Signs Temp Pulse Resp BP Pulse Ox 11/20/20 07:58 81 16 107/69 94 L 11/20/20 07:48 80 11/20/20 07:38 78 11/20/20 06:50 97.5 F L 79 18 94/66 94 L 11/20/20 03:51 79 18 97/63 92 L 11/20/20 03:29 98.2 F 79 16 88/62 94 L 11/20/20 02:37 78 11/20/20 02:27 77 11/20/20 02:04 77 18 87/60 93 L 11/20/20 01:30 86/63 11/20/20 00:10 76/54 11/19/20 23:55 77 16 80/54 95 11/19/20 22:55 83/53 11/19/20 22:42 79/56 11/19/20 21:55 86/53 11/19/20 20:28 68 16 88/62 94 L 11/19/20 17:52 58 L 16 92/63 93 L 11/19/20 15:45 97.9 F 69 16 90/68 97 Intake and Output 11/19/20 11/20/20 11/20/20 22:59 06:59 14:59 Intake Total 81.323 Balance 81.323 Intake: Intake, IV Titration 81.323 Amount Heparin Sod,Pork in 0.45% 81.323 NaCl 25,000 unit In 0.45 % NaCl 1 250ml.bag @ 18 UNITS/KG/HR 9.798 mls/hr IV .Q24H [facility] Rx#: [id number] Other: Weight 54.431 kg Results 11/20/20 02:04 11/19/20 16:16 Cardiac Enzymes 11/19/20 11/19/20 11/19/20 Range/Units 16:16 16:16 21:28 AST 59 H (14-36) U/L CK-MB (CK-2) 3.8 H (0.0-2.4) ng/mL Troponin I 0.188 H* 0.187 H* (0.000-0.034) ng/mL 11/20/20 Range/Units 00:00 AST (14-36) U/L CK-MB (CK-2) (0.0-2.4) ng/mL Troponin I 0.175 H* (0.000-0.034) ng/mL Coagulation 11/19/20 11/20/20 Range/Units 16:16 02:04 PT 10.7 (9.0-12.0) sec APTT 22.1 188.2 H* (22.0-30.0) sec CBC 11/19/20 11/20/20 Range/Units 16:16 02:04 WBC 10.2 9.9 (3.8-10.6) k/uL RBC 5.36 4.83 (3.80-5.40) m/uL Hgb 16.8 H 15.0 (11.4-16.0) gm/dL Hct 50.5 H 45.9 (34.0-46.0) % Plt Count 180 179 (150-450) k/uL Comprehensive Metabolic Panel 11/19/20 Range/Units 16:16 Sodium 128 L (137-145) mmol/L Potassium 4.6 (3.5-5.1) mmol/L Chloride 92 L (98-107) mmol/L Carbon Dioxide 29 (22-30) mmol/L BUN 43 H (7-17) mg/dL Creatinine 0.61 (0.52-1.04) mg/dL Glucose 101 H (74-99) mg/dL Calcium 9.4 (8.4-10.2) mg/dL AST 59 H (14-36) U/L ALT 122 H (4-34) U/L Alkaline Phosphatase 222 H (38-126) U/L Total Protein 5.6 L (6.3-8.2) g/dL Albumin 3.0 L (3.5-5.0) g/dL Current Medications Generic Name Dose Route Start Last Admin Trade Name Freq PRN Reason Stop Dose Admin Acetaminophen 650 mg 11/20/20 10:15 Acetaminophen Tab 325 Mg Tab PO Q4H PRN general discomfort Albuterol/Ipratropium 3 ml 11/20/20 08:00 11/20/20 07:36 Ipratropium-Albuterol 3 Ml Neb INHALATION 3 ml RT-TID IESHA Administration Albuterol/Ipratropium 3 ml 11/20/20 01:58 11/20/20 02:27 Ipratropium-Albuterol 3 Ml Neb INHALATION 3 ml RT-QID PRN Administration Shortness Of Breath Or Wheezing Alprazolam 0.25 mg 11/20/20 21:00 Alprazolam 0.25 Mg Tab PO HS IESHA Apixaban 10 mg 11/20/20 10:00 Apixaban 5 Mg Tab PO 12/20/20 08:59 BID IESHA Taper Protocol Aspirin 325 mg 11/20/20 09:00 Aspirin 325 Mg Tab PO DAILY IESHA Pantoprazole Sodium 40 mg 11/20/20 09:45 Pantoprazole 40 Mg Tablet PO AC-[id number] IESHA Sertraline HCl 50 mg 11/20/20 09:45 Sertraline 50 Mg Tab PO DAILY IESHA Intake and Output 11/19/20 11/20/20 11/20/20 22:59 06:59 14:59 Intake Total 81.323 Balance 81.323 Intake: Intake, IV Titration 81.323 Amount Heparin Sod,Pork in 0.45% 81.323 NaCl 25,000 unit In 0.45 % NaCl 1 250ml.bag @ 18 UNITS/KG/HR 9.798 mls/hr IV .Q24H [facility] Rx#: [id number] Other: Weight 54.431 kg 11/20/20 02:04 11/19/20 16:16
[2020-11-20] MEDS: APIXABAN 5 MG TAB PO SCH ×2 (11:45→20:43)
[2020-11-20] MEDS: ASPIRIN 325 MG TAB PO SCH (11:45)
[2020-11-20] MEDS: PANTOPRAZOLE 40 MG TABLET PO SCH ×2 (11:45→11:49)
[2020-11-20] MEDS: SERTRALINE 50 MG TAB PO SCH (11:49)
--- NOTE | 2020-11-20 13:43 | P.GSCN ---
History of Present Illness Consult date: 11/20/20 Reason for Consult: Pericardial effusion Requesting physician: Lai Vela History of present illness: This is a 70-year-old female patient who follows with Dr. Amber kerr on an outpatient basis for her primary care service. She has a past medical history significant for hypertension, hyperlipidemia, myocardial infarction, asthma, right-sided pleural effusion status post thoracentesis by Dr. Lewis in September 2020, dependent on home oxygen, acute systolic congestive heart failure and multiple myeloma as well as possible cardiac amyloidosis. She presented to the emergency department here at [facility] for complaints of shortness of breath and subsequently denies any chest pain or pressure. She denies any recent fever, chills, nausea, vomiting, diarrhea, constipation, syncope, headache, hematemesis or hemoptysis. Her initial lab results showed a WBC count 10.2, hemoglobin 16.8, hematocrit 50.5, platelets 180, PT 10.7, INR 1.0, d-dimer 2.34, sodium 128, chloride 92, BUN 43, creatinine 0.61, AST 59, ALT 122, a proBNP 17,000, and serial troponins were positive as high as 0.188. A 12-lead EKG was completed which showed normal sinus rhythm with sinus arrhythmia or rate 72 BPM. A chest x-ray was completed which showed evidence for some mild congestive heart failure with chronic pleural effusion, and pulmonary congestion. Due to the patient's presenting symptoms of shortness of breath and elevated d-dimer a CT angio of her chest was completed which demonstrated bilat erals small lower lobe pulmonary emboli, changes of congestive heart failure and pulmonary edema, a right pleural effusion, moderate cardiomegaly, a small pericardial effusion, and groundglass pulmonary interstitial edema. Due to the findings of the small pulmonary emboli she was started on a heparin drip per protocol. A 2-D echocardiogram was also completed although the results are unavailable at this time. The patient was seen and examined in the emergency department, denies any complaints of pain although continues to have episodes of shortness of breath. She is currently on 4 L nasal cannula with oxygen saturations 95%. Due to the findings of a small pericardial effusion Dr. Blayne Weiss from cardiothoracic surgery was consulted for further evaluation and treatment recommendations. Review of Systems A 14 point review of systems was completed was negative except as mentioned in the HPI. Past Medical History Past Medical History: Asthma, Chest Pain / Angina, GERD/Reflux, Hyperlipidemia, Hypertension, Myocardial Infarction ([place]) Additional Past Medical History / Comment(s): Hiatal Hernia, hx 2 ulcers in stomach; Bursitis both knees. Hx pancreatitis, SOB w/exertion due to hernia, history of pericardial effusion, right pleural effusion, status post right thoracentesis Last Myocardial Infarction Date:: 07/2020 History of Any Multi-Drug Resistant Organisms: None Reported Past Surgical History: Back Surgery, Heart Catheterization, Hysterectomy, Orthopedic Surgery, Tonsillectomy Additional Past Surgical History / Comment(s): Back surgery with hardware, L carpal tunnel, L foot surgery, Past Anesthesia/Blood Transfusion Reactions: Previous Problems w/ Anesthesia, Motion Sickness, Postoperative Nausea & Vomiting (PONV) Additional Past Anesthesia/Blood Transfusion Reaction / Comm: was told stopped breathing during EGD Date of Last Stent Placement:: unknown Past Psychological History: Depression Smoking Status: Never smoker Past Alcohol Use History: Rare Past Drug Use History: None Reported - Past Family History Mother Family Medical History: No Reported History, Asthma, Diabetes Mellitus Father Family Medical History: No Reported History Additional Family Medical History / Comment(s): Father lived to be 90yrs. Sister(s) Family Medical History: No Reported History Daughter(s) Family Medical History: No Reported History Medications and Allergies Home Medications Medication Instructions Recorded Confirmed Type Omeprazole 20 mg PO BID 08/24/20 11/19/20 History Multivitamins, Thera [Multivitamin 1 tab PO DAILY 10/07/20 11/19/20 History (formulary)] Sertraline [Zoloft] 50 mg PO DAILY 10/07/20 11/19/20 History Spironolactone [Aldactone] 25 mg PO BID 10/07/20 11/19/20 History ALPRAZolam [Xanax] 0.25 mg PO HS #3 tab 10/18/20 11/19/20 Rx Furosemide [Lasix] 40 mg PO DAILY #30 tablet 10/18/20 11/19/20 Rx Metoprolol Tartrate [Lopressor] 12.5 mg PO DAILY tab 10/18/20 11/19/20 Rx Acetaminophen [Tylenol 8 Hour] 650 mg PO Q4H PRN 11/19/20 11/19/20 History Allergies Allergy/AdvReac Type Severity Reaction Status Date / Time No Known Allergies Allergy Verified 11/19/20 21:34 Surgical - Exam Vital Signs Temp Pulse Resp BP Pulse Ox 97.9 F 69 16 90/68 97 11/19/20 15:45 11/19/20 15:45 11/19/20 15:45 11/19/20 15:45 11/19/20 15:45 - General well nourished, no distress, no pain, chronically ill - Eyes PERRL, normal ocular movement, no pale, no icteric - ENT normal pinna, normal nares, normal mucosa, no hearing loss, no congestion - Neck Neck is supple, no lymphadenopathy. no masses, no bruits, trachea midline, no venous distension - Respiratory Lungs sounds essentially clear to her bilateral upper lobes, diminished bilateral bases with few scattered crackles. Respirations are symmetrical and nonlabored. - Cardiovascular Regular rhythm and rate. S1 and S2 present, negative for S3, gallop or murmur. Bedside telemetry showing normal sinus rhythm heart rate 84 BPM. +1 to +2 edema to her bilateral lower extremities. - Abdomen Abdomen: soft, non tender, bowel sounds (Present all 4 abdominal quadrants.), no organomegaly, no masses, no guarding, no rigid, no distended - Integumentary Skin is warm and dry. No clubbing or cyanosis is present. no rash, no growths, no abnormal pigmentation - Neurologic Cranial nerves II through XII intact. Residual left sided weakness from a reported previous CVA. - Musculoskeletal Moves all 4 extremities. Generalized weakness. - Psychiatric oriented to time, oriented to person, oriented to place, speech is normal, memory intact Results - Labs 11/20/20 02:04 11/19/20 16:16 Abnormal Lab Results - Last 24 Hours (Table) 11/19/20 11/19/20 11/19/20 Range/Units 16:16 16:16 16:16 Hgb 16.8 H (11.4-16.0) gm/dL Hct 50.5 H (34.0-46.0) % RDW 17.4 H (11.5-15.5) % APTT (22.0-30.0) sec D-Dimer 2.34 H (<0.60) mg/L FEU Sodium 128 L (137-145) mmol/L Chloride 92 L (98-107) mmol/L BUN 43 H (7-17) mg/dL Glucose 101 H (74-99) mg/dL Total Bilirubin 2.7 H (0.2-1.3) mg/dL AST 59 H (14-36) U/L ALT 122 H (4-34) U/L Alkaline Phosphatase 222 H (38-126) U/L Creatine Kinase <20 L (30-135) U/L CK-MB (CK-2) (0.0-2.4) ng/mL Troponin I (0.000-0.034) ng/mL Total Protein 5.6 L (6.3-8.2) g/dL Albumin 3.0 L (3.5-5.0) g/dL 11/19/20 11/19/20 11/20/20 Range/Units 16:16 21:28 00:00 Hgb (11.4-16.0) gm/dL Hct (34.0-46.0) % RDW (11.5-15.5) % APTT (22.0-30.0) sec D-Dimer (<0.60) mg/L FEU Sodium (137-145) mmol/L Chloride (98-107) mmol/L BUN (7-17) mg/dL Glucose (74-99) mg/dL Total Bilirubin (0.2-1.3) mg/dL AST (14-36) U/L ALT (4-34) U/L Alkaline Phosphatase (38-126) U/L Creatine Kinase (30-135) U/L CK-MB (CK-2) 3.8 H (0.0-2.4) ng/mL Troponin I 0.188 H* 0.187 H* 0.175 H* (0.000-0.034) ng/mL Total Protein (6.3-8.2) g/dL Albumin (3.5-5.0) g/dL 11/20/20 11/20/20 11/20/20 Range/Units 02:04 02:04 10:14 Hgb (11.4-16.0) gm/dL Hct (34.0-46.0) % RDW 18.1 H (11.5-15.5) % APTT 188.2 H* 74.1 H (22.0-30.0) sec D-Dimer (<0.60) mg/L FEU Sodium (137-145) mmol/L Chloride (98-107) mmol/L BUN (7-17) mg/dL Glucose (74-99) mg/dL Total Bilirubin (0.2-1.3) mg/dL AST (14-36) U/L ALT (4-34) U/L Alkaline Phosphatase (38-126) U/L Creatine Kinase (30-135) U/L CK-MB (CK-2) (0.0-2.4) ng/mL Troponin I (0.000-0.034) ng/mL Total Protein (6.3-8.2) g/dL Albumin (3.5-5.0) g/dL Diabetes panel 11/19/20 Range/Units 16:16 Sodium 128 L (137-145) mmol/L Potassium 4.6 (3.5-5.1) mmol/L Chloride 92 L (98-107) mmol/L Carbon Dioxide 29 (22-30) mmol/L BUN 43 H (7-17) mg/dL Creatinine 0.61 (0.52-1.04) mg/dL Glucose 101 H (74-99) mg/dL Calcium 9.4 (8.4-10.2) mg/dL AST 59 H (14-36) U/L ALT 122 H (4-34) U/L Alkaline Phosphatase 222 H (38-126) U/L Total Protein 5.6 L (6.3-8.2) g/dL Albumin 3.0 L (3.5-5.0) g/dL Calcium panel 11/19/20 Range/Units 16:16 Calcium 9.4 (8.4-10.2) mg/dL Albumin 3.0 L (3.5-5.0) g/dL Pituitary panel 11/19/20 Range/Units 16:16 Sodium 128 L (137-145) mmol/L Potassium 4.6 (3.5-5.1) mmol/L Chloride 92 L (98-107) mmol/L Carbon Dioxide 29 (22-30) mmol/L BUN 43 H (7-17) mg/dL Creatinine 0.61 (0.52-1.04) mg/dL Glucose 101 H (74-99) mg/dL Calcium 9.4 (8.4-10.2) mg/dL Adrenal panel 11/19/20 Range/Units 16:16 Sodium 128 L (137-145) mmol/L Potassium 4.6 (3.5-5.1) mmol/L Chloride 92 L (98-107) mmol/L Carbon Dioxide 29 (22-30) mmol/L BUN 43 H (7-17) mg/dL Creatinine 0.61 (0.52-1.04) mg/dL Glucose 101 H (74-99) mg/dL Calcium 9.4 (8.4-10.2) mg/dL Total Bilirubin 2.7 H (0.2-1.3) mg/dL AST 59 H (14-36) U/L ALT 122 H (4-34) U/L Alkaline Phosphatase 222 H (38-126) U/L Total Protein 5.6 L (6.3-8.2) g/dL Albumin 3.0 L (3.5-5.0) g/dL - Imaging Chest x-ray: report reviewed, image reviewed CT scan - chest: report reviewed, image reviewed EKG: image reviewed Assessment and Plan Assessment: 1. Small pericardial effusion, chronic, unchanged from previous 2-D echocardiogram 2. Acute pulmonary embolism, CT of the chest shows small bilateral lower lobe pulmonary emboli 3. Acute on chronic dyspnea, multifactorial 4. Small right pleural effusion, status post right-sided thoracentesis in September [address] Lewis 5. Multivitamin myeloma, recently diagnosed, currently not on treatment 6. Amyloidosis with restrictive cardiomyopathy 7. Hyperlipidemia 8. Transaminitis with elevated AST and ALT 9. Acute on chronic congestive heart failure with an ejection fraction of 45% and a proBNP level of 17,000 on admission 10. Asthma 11. History of anxiety/depression 12. Hyponatremia on admission with a sodium level of 128 Plan: The patient was seen in exam at her bedside in the emergency department. Her chart and diagnostics were reviewed. Her case was discussed in detail with Dr. Blayne Weiss from cardiothoracic surgery. Dr. Weiss reviewed the findings on the CAT scans and 2-D echocardiogram. No surgical intervention is warranted at this time, as there is only a small pericardial effusion without tamponade. Continue to maximize medical therapy. Medical management and other comorbidities per primary care service. We will continue to follow the patient on an as-needed basis, please feel free to reconsult for further evaluation. Thank you for this consult. Time with Patient: Greater than 30
--- NOTE | 2020-11-20 16:01 | ECHOF ---
Referral Reason:dyspnea MEASUREMENTS -------- HEIGHT: 129.5 cm WEIGHT: 54.4 kg BP: IVSd: 1.5 cm (0.6 - 1.1) LVIDd: 3.0 cm (3.9 - 5.3) LVPWd: 1.5 cm (0.6 - 1.1) EDV(Teich): 34 ml IVSs: 1.8 cm LVIDs: 2.1 cm LVPWs: 1.7 cm %IVS Thck: 20 % ESV(Teich): 15 ml EF(Teich): 56 % %FS: 28 % SV(Teich): 19 ml RVIDd: 2.8 cm (< 3.3) IVC: 25.75 mm LALs A4C: 7.3 cm LAAs A4C: 27.1 cm LAESV A-L A4C: 85 ml LAESV MOD A4C: 80 ml LALs A2C: 6.2 cm LAAs A2C: 19.4 cm LAESV A-L A2C: 51 ml LAESV MOD A2C: 49 ml LAESV(A-L): 72 ml LAESV Index (A-L): 53.46 ml/m Ao Diam: 3.1 cm (2.0 - 3.7) LA Diam: 4.1 cm (2.7 - 3.8) AV Cusp: 1.8 cm (1.5 - 2.6) EPSS: 0.5 cm MV E Rajinder: 0.68 m/s MV DecT: 208 ms MV Dec Baraga: 3.3 m/s MV A Rajinder: 0.25 m/s MV E/A Ratio: 2.70 MV PHT: 60 ms MR Vmax: 3.72 m/s MR maxP.45 mmHg AV Vmax: 0.93 m/s AV maxP.44 mmHg AR Vmax: 1.74 m/s AR maxP.16 mmHg AR PHT: 465 ms AR Dec Time: 1605 ms AR Dec Baraga: 1.1 m/s PV Vmax: 0.85 m/s PV maxP.88 mmHg PA Vmax: 2.09 m/s PA maxP.53 mmHg PA PHT: 335 ms PA DecT: 1156 ms PA Dec Baraga: 1.8 m/s TR Vmax: 2.85 m/s TR maxP.41 mmHg RAP: 5.00 mmHg RVSP: 37.41 mmHg MV EF SLOPE: 61.42 mm/s (70 - 150) MV EXCURSION: 8.94 mm (> 18.000) FINDINGS -------- This was a technically difficult study with suboptimal views. The left ventricular size is normal. There is severe concentric left ventricular hypertrophy. Ove rall left ventricular systolic function is mild-moderately impaired with, an EF between 40 - 45 %. lI MARIANA RESTRICTIVE CARDIOMYOPATHY . The right ventricle is normal in size. RV Promident LA is severely dilated >40 ml/m2 The right atrial size is normal. The aortic valve is trileaflet and appears structurally normal. The mitral valve is normal. Mild mitral regurgitation is present. The tricuspid valve appears structurally normal. Moderate tricuspid regurgitation present. There is mild pulmonary hypertension. The right ventricular systolic pressure, as measured by Doppler, is 37.41mmHg. Trace/mild (physiologic) pulmonic regurgitation. The aortic root size is normal. Normal inferior vena cava with normal inspiratory collapse consistent with estimated right atrial pre ssure of 5 mmHg. There is a small, generalized pericardial effusion present. 5.0mg of Lumason was utilized for enhancement of images CONCLUSIONS -------- 1. The left ventricular size is normal. 2. There is severe concentric left ventricular hypertrophy. 3. Increased LAP. Grade 2 Diastolic Dysfuntion. 4. LA is severely dilated >40 ml/m2 5. Mild mitral regurgitation is present. 6. Moderate tricuspid regurgitation present. 7. There is mild pulmonary hypertension. 8. The right ventricular systolic pressure, as measured by Doppler, is 37.41mmHg. 9. Trace/mild (physiologic) pulmonic regurgitation. 10. There is a small, generalized pericardial effusion present. HSE MANAGER: Lakshmi Marrero RDCS
--- NOTE | 2020-11-20 16:24 | P.HPIM ---
History of Present Illness H&P Date: 11/20/20 Chief Complaint: Shortness of breath, generalized weakness and increased ability History of present illness This 70-year-old pleasant female patient of Dr. Hand, with underlying history of paraesophageal hiatal hernia and GERD, chronic bronchial asthma, mild intermittent hypertension, hyperlipidemia, and recently diagnosed to have amyloidosis and multiple myeloma, through confirmed bone marrow biopsy was supposed to start treatment with Dr. Madrid on 10/11/2020. She was recently hospitalized, 08/25/2020, for shortness of breath, sees Dr. Soria cardiology and was diagnosed to have an STEMI, in, 07/17/2020, in the clinic in [facility]. She underwent a heart cath, the second time and was found to have nonobstructive CAD, diastolic CHF, EF was documented to be normal that time, and was discharged with Cozaar and Lopressor Lasix and potassium. Patient had a prolonged hospitalization from October 09/2021 to October 25/2021 for worsening shortness of breath. She was treated for cardiomyopathy likely secondary to amyloidosis from multiple myeloma, pleural effusions underwent thoracentesis where 700 mL was removed. Pleural fluid was transudative and cytology was nondiagnostic negative fluid culture. Patient had echocardiogram during that admission suggest EF of 45-50% moderate concentric left ventricular hypertrophy with moderate generalized pericardial effusion mild pulmonary hypertension. Patient was treated with dexamethasone for multiple myeloma but could not be started on chemotherapy Remlivid as patient was discharged to subacute rehab . Patient has been home for past 3 weeks where she was noted to be more short of breath with increased weakness. According to the family patient has not been active at home and is progressively getting worse despite getting physical therapy. On assessment in the ER, chest x-ray Mild congestive heart failure with chronic pleural effusion with slightly increased congestion compared to previous x-ray. CT is suggestive of bilateral small lower lobe pulmonary emboli which appeared new compared to on exam but changes of congestive heart failure and pulmonary edema right pleural effusion and moderate cardiomegaly epicardial effusion and ground glass interstitial edema that increased compared to old exam. EKG obtained suggested normal sinus rhythm with sinus arrhythmia. Overnight patient continued to have low blood pressure with a systolic in the 70s and diastolic in the 50s. One and a half liter of IV fluid was given with improvement in pressures. Patient is currently on 4 L of oxygen saturating at 94% labs reviewed suggest a WBC of 10.2 hemoglobin 16.8 hematocrit 50.7 d-dimer 2.3 sodium 128 potassium 4.6 BUN of 43 creatinine 0.6 elevated liver enzymes AST 59 ALT 122 alkaline phosphatase 222 troponin elevation of 0.1880 BNP elevated at 17,000 she was started on heparin infusion for pulmonary embolism. Venous Dopplers and echocardiogram ordered. Cardiothoracic surgery consulted for moderate pericardial effusion chest x-ray Mild congestive heart failure with chronic pleural effusion with slightly increased congestion compared to previous x-ray. CT is suggestive of bilateral small lower lobe pulmonary emboli which appeared new compared to on exam but changes of congestive heart failure and pulmonary edema right pleural effusion and moderate cardiomegaly epicardial effusion and ground glass interstitial edema that increased compared to old exam. EKG obtained suggested normal sinus rhythm with sinus arrhythmia ROS Constitutional: Denies chills, Denies fever,endorses increasing weaknesss, Denies weight loss Eyes: denies decreased vision, denies diplopia, denies discharge, denies pain Ears: deny: decreased hearing Ears, nose, mouth and throat: Denies dental pain, Denies headache, Denies nasal discharge, Denies nose pain Cardiovascular: Denies chest pain,endorsesd exercise tolerance endorses edema, Denies high blood pressure, Denies irregular heart beat, Denies palpitations, Denies paroxysmal nocturnal dyspnea, Denies rapid heart beat, Denies shortness of breath Respiratory Endorses congestion, Denies cough, Denies cough with sputum endorses dyspnea Denies home oxygen, Denies wheezing Gastrointestinal: Denies abdominal pain, Denies change in bowel habits, Denies coffee ground emesis, Denies early satiety, Denies excessive gas, Denies heartburn, Denies hematemesis, Denies hematochezia, Denies loss of appetite, Denies nausea, Denies vomiting Genitourinary: Denies dysuria, Denies flank pain, Denies kidney stones, Denies menorrhagia, Denies urgency, Denies urinary frequency Musculoskeletal Endorses gait dysfunction, Denies limitation of motion, Denies morning stiffness, Denies muscle cramps Integumentary: Denies rash, Denies wounds, Denies brittle nails, Denies change in hair/nails, Denies darkening of skin Neurological: Denies balance difficulties, Denies change in speech, Denies double vision, Denies gait dysfunction, Denies loss of vision, Denies motor disturbance, Denies numbness, Denies paralysis, Denies paresthesias, Denies seizures Psychiatric: Denies anxiety, Denies depression Endocrine: Denies excessive sweating, Denies excessive thirst, Denies high blood sugars, Denies palpitations Hematologic/Lymphatic: Denies easy bruising, Denies lymphadenopathy Social history Nonsmoker nondrinker Family history Mother history of asthma and diabetes,amyloidosis Father at the age of 60 amyloidosis in paternal aunt Significant history and the daughter Physical exam - Constitutional General appearance: cooperative, no acute distress,significantly debilitated - EENT Eyes: anicteric sclerae, PERRLA, normal appearance ENT: hearing grossly normal - Neck Neck: no lymphadenopathy, normal ROM, no other, no rigidity, no stridor, no thyromegaly - Respiratory Respiratory: bilateral:Increased air entry with crackles at the bases, rhonchi no wheezing - Cardiovascular Rhythm: regular Heart sounds: normal: S1, S2 Abnormal Heart Sounds: no systolic murmur, no diastolic murmur, positive for S3 Gallop, no S4 Gallop, no click, no other - Gastrointestinal General gastrointestinal: normal bowel sounds, soft - Integumentary Integumentary: no rash - Neurologic Neurologic:No motor or sensory deficits - Musculoskeletal Musculoskeletal Gait not assessed strength equal bilaterally - Psychiatric Psychiatric: A&O x's 3, appropriate affect Assessment and plan .#1 acute hypoxic respiratory failure secondary to acute on chronic systolic and diastolic congestive heart failure and pulmonary embolism. On heparin drip. Venous Dopplers ordered. Echocardiogram with EF 45-50% with moderate concentric left ventricular hypertrophy moderate pericardial effusion mild enlargement of right ventricle mild pulmonary hypertension September 2020 monitor KATARINA's and daily weights hold diuretics as blood pressure is on the lower side. #2. Elevated troponins which is chronic,. Patient had recent heart catheterization in [place] was reported as negative for obstructive disease 07/02. Cardiology consult and repeat troponins. Echocardiogram conclusion: EF between 45 and 50%, moderate concentric left ventricular atrophy, moderate generalized pericardial effusion present, right ventricle is mildly enlarged, ileus mildly dilated, mild pulmonary hypertension. Her ventricular systolic pressure measured by Doppler is 39.15 mmHg. 3. Chronic pericardial effusion appears small per echocardiogram repeat echocardiogram pending. Cardiothoracic surgery consulted 4. Amyloidosis, suspect nonischemic cardiomyopathy, no treatment initiated yet, oncology consult appreciated 5. Multiple myeloma. Patient completed course of dexamethasone. Plan for Revlima once patient finishes physical therapy but patient continues to stay physically debilitated and needs inpatient or subacute rehab the treatment could not be initiated. 6. Transaminitis with elevated total bili / jaundice possibly secondary to cholecystitis possibly secondary to amyloid as well, 7. Hyponatremia likely secondary to hypovolemia from congestive heart failure continue to monitor daily CMP 8. Hyperlipidemia. Old Lipitor 20 mg daily due to transaminitis. 9. Hypertension. Hold Lopressor 25 mg twice daily due to low blood pressure. 10. Hiatal hernia status post robotic-assisted laparoscopic repair of incarcerated paraesophageal hernia in April 2020, stable. 11. Mild intermittent asthma, stable. 12. Gastroesophageal reflux disease and GI prophylaxis. Continue omeprazole 20 g twice daily. 13. Generalized anxiety disorder. Continue Xanax 0.25 mg twice daily. 14. Bilateral Lower extremity weakness. Due to generalized debility CAT scan of the lumbar spine done in the last was negative for compression spine. 15. DVT prophylaxis. On heparin drip 16. GI prophylaxis. Protonix 40 mg CODE STATUS: CODE STATUS discussed with patient patient would like to be a no code and does not require intubation Discharge plan: PT OT consult for possible rehab placement Past Medical History Past Medical History: Asthma, Chest Pain / Angina, GERD/Reflux, Hyperlipidemia, Hypertension, Myocardial Infarction ([place]) Additional Past Medical History / Comment(s): Hiatal Hernia, hx 2 ulcers in stomach; Bursitis both knees. Hx pancreatitis, SOB w/exertion due to hernia, history of pericardial effusion, right pleural effusion, status post right thoracentesis Last Myocardial Infarction Date:: 07/2020 History of Any Multi-Drug Resistant Organisms: None Reported Past Surgical History: Back Surgery, Heart Catheterization, Hysterectomy, Orthopedic Surgery, Tonsillectomy Additional Past Surgical History / Comment(s): Back surgery with hardware, L carpal tunnel, L foot surgery, Past Anesthesia/Blood Transfusion Reactions: Previous Problems w/ Anesthesia, Motion Sickness, Postoperative Nausea & Vomiting (PONV) Additional Past Anesthesia/Blood Transfusion Reaction / Comment(s): was told stopped breathing during EGD Date of Last Stent Placement:: unknown Past Psychological History: Depression Smoking Status: Never smoker Past Alcohol Use History: Rare Past Drug Use History: None Reported - Past Family History Mother Family Medical History: No Reported History, Asthma, Diabetes Mellitus Father Family Medical History: No Reported History Additional Family Medical History / Comment(s): Father lived to be 90yrs. Sister(s) Family Medical History: No Reported History Daughter(s) Family Medical History: No Reported History Medications and Allergies Home Medications Medication Instructions Recorded Confirmed Type Omeprazole 20 mg PO BID 08/24/20 11/19/20 History Multivitamins, Thera [Multivitamin 1 tab PO DAILY 10/07/20 11/19/20 History (formulary)] Sertraline [Zoloft] 50 mg PO DAILY 10/07/20 11/19/20 History Spironolactone [Aldactone] 25 mg PO BID 10/07/20 11/19/20 History ALPRAZolam [Xanax] 0.25 mg PO HS #3 tab 10/18/20 11/19/20 Rx Furosemide [Lasix] 40 mg PO DAILY #30 tablet 10/18/20 11/19/20 Rx Metoprolol Tartrate [Lopressor] 12.5 mg PO DAILY tab 10/18/20 11/19/20 Rx Acetaminophen [Tylenol 8 Hour] 650 mg PO Q4H PRN 11/19/20 11/19/20 History Allergies Allergy/AdvReac Type Severity Reaction Status Date / Time No Known Allergies Allergy Verified 11/19/20 21:34 Physical Exam Vitals: Vital Signs Temp Pulse Resp BP Pulse Ox 11/20/20 12:37 84 18 106/72 95 11/20/20 12:21 82 16 99/70 94 L 11/20/20 11:55 84 11/20/20 11:47 80 11/20/20 07:58 81 16 107/69 94 L 11/20/20 07:48 80 11/20/20 07:38 78 11/20/20 06:50 97.5 F L 79 18 94/66 94 L 11/20/20 03:51 79 18 97/63 92 L 11/20/20 03:29 98.2 F 79 16 88/62 94 L 11/20/20 02:37 78 11/20/20 02:27 77 11/20/20 02:04 77 18 87/60 93 L 11/20/20 01:30 86/63 11/20/20 00:10 76/54 11/19/20 23:55 77 16 80/54 95 11/19/20 22:55 83/53 11/19/20 22:42 79/56 11/19/20 21:55 86/53 11/19/20 20:28 68 16 88/62 94 L 11/19/20 17:52 58 L 16 92/63 93 L Intake and Output 11/20/20 11/20/20 11/20/20 06:59 14:59 22:59 Intake Total 81.323 Balance 81.323 Intake: Intake, IV Titration 81.323 Amount Heparin Sod,Pork in 0.45% 81.323 NaCl 25,000 unit In 0.45 % NaCl 1 250ml.bag @ 18 UNITS/KG/HR 9.798 mls/hr IV .Q24H [facility] Rx#: [id number] Results CBC & Chem 7: 11/20/20 02:04 11/19/20 16:16 Labs: Abnormal Lab Results - Last 24 Hours (Table) 11/19/20 11/19/20 11/19/20 Range/Units 16:16 16:16 16:16 Hgb 16.8 H (11.4-16.0) gm/dL Hct 50.5 H (34.0-46.0) % RDW 17.4 H (11.5-15.5) % APTT (22.0-30.0) sec D-Dimer 2.34 H (<0.60) mg/L FEU Sodium 128 L (137-145) mmol/L Chloride 92 L (98-107) mmol/L BUN 43 H (7-17) mg/dL Glucose 101 H (74-99) mg/dL Total Bilirubin 2.7 H (0.2-1.3) mg/dL AST 59 H (14-36) U/L ALT 122 H (4-34) U/L Alkaline Phosphatase 222 H (38-126) U/L Creatine Kinase <20 L (30-135) U/L CK-MB (CK-2) (0.0-2.4) ng/mL Troponin I (0.000-0.034) ng/mL Total Protein 5.6 L (6.3-8.2) g/dL Albumin 3.0 L (3.5-5.0) g/dL 11/19/20 11/19/20 11/20/20 Range/Units 16:16 21:28 00:00 Hgb (11.4-16.0) gm/dL Hct (34.0-46.0) % RDW (11.5-15.5) % APTT (22.0-30.0) sec D-Dimer (<0.60) mg/L FEU Sodium (137-145) mmol/L Chloride (98-107) mmol/L BUN (7-17) mg/dL Glucose (74-99) mg/dL Total Bilirubin (0.2-1.3) mg/dL AST (14-36) U/L ALT (4-34) U/L Alkaline Phosphatase (38-126) U/L Creatine Kinase (30-135) U/L CK-MB (CK-2) 3.8 H (0.0-2.4) ng/mL Troponin I 0.188 H* 0.187 H* 0.175 H* (0.000-0.034) ng/mL Total Protein (6.3-8.2) g/dL Albumin (3.5-5.0) g/dL 11/20/20 11/20/20 11/20/20 Range/Units 02:04 02:04 10:14 Hgb (11.4-16.0) gm/dL Hct (34.0-46.0) % RDW 18.1 H (11.5-15.5) % APTT 188.2 H* 74.1 H (22.0-30.0) sec D-Dimer (<0.60) mg/L FEU Sodium (137-145) mmol/L Chloride (98-107) mmol/L BUN (7-17) mg/dL Glucose (74-99) mg/dL Total Bilirubin (0.2-1.3) mg/dL AST (14-36) U/L ALT (4-34) U/L Alkaline Phosphatase (38-126) U/L Creatine Kinase (30-135) U/L CK-MB (CK-2) (0.0-2.4) ng/mL Troponin I (0.000-0.034) ng/mL Total Protein (6.3-8.2) g/dL Albumin (3.5-5.0) g/dL
[2020-11-20] MEDS: ALPRAZolam 0.25 MG TAB PO SCH (20:43)
--- NOTE | 2020-11-20 21:56 | US ---
EXAMINATION TYPE: US venous doppler duplex LE DATE OF EXAM: 11/20/2020 1:21 PM COMPARISON: NONE CLINICAL HISTORY: rule out DVT. SIDE PERFORMED: Bilateral TECHNIQUE: The lower extremity deep venous system is examined utilizing real time linear array sonog berhane with graded compression, doppler sonography and color-flow sonography. VESSELS IMAGED: Common Femoral Vein Deep Femoral Vein Femoral Vein Popliteal Vein Proximal Calf Veins Right Leg: There is nonocclusive thrombus in the common femoral vein and proximal deep femoral vein. No thrombus is seen in the popliteal vein to the proximal calf veins. Left Leg: There is no thrombus in the deep veins. IMPRESSION: Grayscale, color doppler, spectral doppler imaging performed of the deep veins of the lo wer extremities. There is nonocclusive thrombus in the right common femoral vein and proximal deep f emoral vein. There is no thrombus in the deep veins of the left lower extremity.
[2020-11-20] MEDS: ACETAMINOPHEN TAB 325 MG TAB PO PRN (23:15)
--- NOTE | 2020-11-20 23:24 | P.GSCN ---
History of Present Illness Consult date: 11/20/20 Reason for Consult: PE History of present illness: This 70-year-old pleasant female with underlying history of paraesophageal hiatal hernia and GERD, chronic bronchial asthma, mild intermittent hypertension, hyperlipidemia, and recently diagnosed to have amyloidosis and multiple myeloma, through confirmed bone marrow biopsy was supposed to start treatment with Dr. Madrid on 10/11/2020. She was recently hospitalized, 08/25/2020, for shortness of breath and presented to the hospital this time for weakness, shortness of breath and was found to have small bilateral PE's. She is currently on heparin drip with plan to transition to OAC. She denies any fevers, chills, chest pain or shortness of breath currently. Review of Systems All systems: negative (unless mentioned in the HPI or PMH) Past Medical History Past Medical History: Asthma, Chest Pain / Angina, GERD/Reflux, Hyperlipidemia, Hypertension, Myocardial Infarction ([place]) Additional Past Medical History / Comment(s): Hiatal Hernia, hx 2 ulcers in stomach; Bursitis both knees. Hx pancreatitis, SOB w/exertion due to hernia, history of pericardial effusion, right pleural effusion, status post right thoracentesis. Last Myocardial Infarction Date:: 07/2020 History of Any Multi-Drug Resistant Organisms: None Reported Past Surgical History: Back Surgery, Heart Catheterization, Hysterectomy, Orthop edic Surgery, Tonsillectomy Additional Past Surgical History / Comment(s): Back surgery with hardware, L carpal tunnel, L foot surgery. Past Anesthesia/Blood Transfusion Reactions: Previous Problems w/ Anesthesia, Motion Sickness, Postoperative Nausea & Vomiting (PONV) Additional Past Anesthesia/Blood Transfusion Reaction / Comm: States she stopped breathing during EGD and has hard time waking up after anesthesia. Date of Last Stent Placement:: unknown Past Psychological History: Depression Smoking Status: Never smoker Past Alcohol Use History: Rare Past Drug Use History: None Reported - Past Family History Mother Family Medical History: Asthma, Congestive Heart Failure (CHF), Diabetes Mellitus Father Family Medical History: No Reported History Additional Family Medical History / Comment(s): Father lived to be 90yrs. Sister(s) Family Medical History: No Reported History Daughter(s) Family Medical History: No Reported History Medications and Allergies Home Medications Medication Instructions Recorded Confirmed Type Omeprazole 20 mg PO BID 08/24/20 11/19/20 History Multivitamins, Thera [Multivitamin 1 tab PO DAILY 10/07/20 11/19/20 History (formulary)] Sertraline [Zoloft] 50 mg PO DAILY 10/07/20 11/19/20 History Spironolactone [Aldactone] 25 mg PO BID 10/07/20 11/19/20 History ALPRAZolam [Xanax] 0.25 mg PO HS #3 tab 10/18/20 11/19/20 Rx Furosemide [Lasix] 40 mg PO DAILY #30 tablet 10/18/20 11/19/20 Rx Metoprolol Tartrate [Lopressor] 12.5 mg PO DAILY tab 10/18/20 11/19/20 Rx Acetaminophen [Tylenol 8 Hour] 650 mg PO Q4H PRN 11/19/20 11/19/20 History Allergies Allergy/AdvReac Type Severity Reaction Status Date / Time No Known Allergies Allergy Verified 11/19/20 21:34 Surgical - Exam Vital Signs Temp Pulse Resp BP Pulse Ox 97.9 F 69 16 90/68 97 11/19/20 15:45 11/19/20 15:45 11/19/20 15:45 11/19/20 15:45 11/19/20 15:45 palpable femoral pulses bilaterally. diminished dp and pt pulses palpable radial pulses bilaterally - General well developed, well nourished, no distress - Eyes PERRL - ENT normal pinna - Neck no masses - Respiratory normal expansion, normal respiratory effort - Cardiovascular Rhythm: regular - Abdomen Abdomen: soft, non tender - Neurologic normal coordination - Psychiatric oriented to time, oriented to person, oriented to place, speech is normal Results - Labs 11/20/20 02:04 11/19/20 16:16 Abnormal Lab Results - Last 24 Hours (Table) 11/20/20 11/20/20 11/20/20 Range/Units 00:00 02:04 02:04 RDW 18.1 H (11.5-15.5) % APTT 188.2 H* (22.0-30.0) sec Troponin I 0.175 H* (0.000-0.034) ng/mL 11/20/20 Range/Units 10:14 RDW (11.5-15.5) % APTT 74.1 H (22.0-30.0) sec Troponin I (0.000-0.034) ng/mL Assessment and Plan Assessment: 1. Acute PE without heart strain 2. Multiple mylenoma 3. respiratory insufficience 4. chronic elevated troponins Plan: No surgical intervention required. Agree with anticoagulation. Will re-eval prn. thank you for the consultation.
[2020-11-21] MEDS: IPRATROPIUM-ALBUTEROL 3 ML NEB INHALATION SCH ×4 (02:50→19:05)
[2020-11-21 07:39] LABS: Anisocytosis Slight; Basophils % (A) 0 %; Eosinophils % (A) 0 %; HCT 46.7 % (34.0-46.0); HGB 15.1 gm/dL (11.4-16.0); Lymphocytes # (A) 1.2 k/uL (1.0-4.8); Lymphocytes % (A) 9 %; MCH 31.4 pg (25.0-35.0); MCHC 32.3 g/dL (31.0-37.0); MCV 97.4 fL (80.0-100.0); Macrocytosis Slight; Mean Platelet Volume 9.1; Monocytes # (A) 0.6 k/uL (0-1.0); Monocytes % (A) 4 %; Neutrophils # (A) 11.3 k/uL (1.3-7.7); Neutrophils % (A) 85 %; Platelet Count 219 k/uL (150-450); RBC 4.79 m/uL (3.80-5.40); RDW 17.4 % (11.5-15.5); WBC 13.4 k/uL (3.8-10.6)
[2020-11-21 07:54] LABS: ALT 86 U/L (4-34); AST 52 U/L (14-36); African American GFR (CKD) >90 (>60 ml/min/1.73 sqM); Albumin 2.8 g/dL (3.5-5.0); Alkaline Phosphatase 185 U/L (38-126); Anion Gap 7 mmol/L; Blood Urea Nitrogen 50 mg/dL (7-17); Calcium 9.5 mg/dL (8.4-10.2); Carbon Dioxide 25 mmol/L (22-30); Chloride 98 mmol/L (98-107); Glucose 159 mg/dL (74-99); Non-African American GFR(CKD) 89 (>60 ml/min/1.73 sqM); Potassium 4.5 mmol/L (3.5-5.1); Sodium 130 mmol/L (137-145); Total Bilirubin 2.6 mg/dL (0.2-1.3); Total Protein 5.4 g/dL (6.3-8.2)
[2020-11-21] MEDS: SERTRALINE 50 MG TAB PO SCH (08:39)
[2020-11-21] MEDS: ASPIRIN 325 MG TAB PO SCH (08:39)
[2020-11-21] MEDS: APIXABAN 5 MG TAB PO SCH ×2 (08:39→21:46)
[2020-11-21] MEDS: FUROSEMIDE 10 MG/ML 2 ML VIAL IV SCH (10:12)
--- NOTE | 2020-11-21 10:59 | P.PN ---
Subjective Progress Note Date: 11/21/20 This is a 70-year-old female who we recently saw in consultation for shortness of breath, and right-sided pleural effusion in the beginning of September 2020 and patient underwent right-sided thoracentesis for symptomatic relief on 10/08/2020 with removal of 700 mL of pleural fluid, she was transudative, with negative cultures and pleural fluid cytology was nondiagnostic. Patient has had several hospitalizations recently for some breath related to acute systolic CHF. She has a long and complicated medical history. During one of her previous hospitalizations patient also had moderately sized pericardial effusion, without evidence of cardiac tamponade. Patient was recently diagnosed with multiple myeloma, he has not started treatment yet. Seen in consultation by medical oncology who recommended starting the patient on Revlimid. Patient also had a hospitalization in [place] earlier in the year where she had the ST elevated myocardial infarction, and cardiac catheterization with no specific intervention. Echocardiogram showed a small pericardial effusion without definite compromise, but the appearance of myocardium was suspicious for amyloidosis, and there is a family history of amyloidosis in her mother and a paternal aunt. Echocardiogram showed ejection fraction of 45-50%, inferior LV wall hypokinesis, and inferior septal wall hypokinesis. Patient's CHF was optimized, she was discharged to [facility] on 10/25/2020 for rehab. she was not requiring oxygen at the ECF, she noted increased shortness of breath and swelling in her lower extremities. She denied any chest pain, denied any cough or congestion, she is not sure whether she was receiving Lasix at the residential. She states she was doing well following her discharge to [facility], she was able to ambulate and participate with physical therapy. On 11/19/2020 patient was brought in to the emergency department per EMS with complaints of difficulty in breathing. Her symptoms have been progressively worse in the past 4 days. Chest X-ray showed mild CHF, CTA chest was completed showing changes of congestive heart failure and pulmonary edema, small right pleural effusion, small pericardial effusion. There was a patchy pulmonary interstitial groundglass infiltrates. There was a small filling defect within the right lower lobe pulmonary artery involving the posterior basal segment branch con sistent with a PE. Hemodynamically patient was having some hypotension with the systolic blood pressures in the 70s and diastolic in the 50s. She has been afebrile. Clinically on 3 L of oxygen and pulse ox 94%, her labs have been reviewed, showing white blood cell, 10.2, hemoglobin of 16.8, hematocrit was 50.7, d-dimer is 2.34, sodium was 128, potassium was 4.6, B1 is 43, creatinine 0.61, patient had elevation of her liver enzymes with AST of 59, ALT of 122, alkaline phosphatase of 222, she had troponin elevation which topped out at 0.188, her proBNP was elevated at 17,000.Eevated proBNP suggested acute CHF, clinically patient appears to be hypovolemic, and she was given gentle hydration of 1 L maintain her blood pressure. She was started on heparin infusion for pulmonary embolism. This morning she seen in the emergency department, she is short of breath at rest, but no acute distress, she remains on 4 L of oxygen. Currently blood pressure is 90/64, she is in sinus rhythm with a rate of 84, no complaints of chest pain, lung sounds revealed coarse crackles throughout bilateral bases, she has mild swelling in her lower extremities. 11/21/2020, the patient is alert and oriented 2. No significant respiratory distress. She is on oxygen at 4 L per minute nasal cannula. She is already on Eliquis. She is resting comfortably in bed. No chest pain. No angina. No palpitation. No worsening shortness of breath. The Doppler of the lower extremity showed a nonocclusive DVT in the right lower extremity. This goes along with her pulmonary embolism and the patient is currently on Eliquis without any complications. Objective - Vital Signs Vital signs: Vital Signs Temp 97.6 F 11/21/20 08:00 Pulse 80 11/21/20 09:50 Resp 16 11/21/20 08:00 BP 95/61 11/21/20 08:00 Pulse Ox 95 11/21/20 08:00 Intake & Output 11/20/20 11/21/20 11/21/20 18:59 06:59 18:59 Intake Total 0 Output Total 500 Balance -500 0 Weight 68 kg Intake: Oral 0 Output: Urine 500 Other: Voiding Method Indwelling Catheter Indwelling Catheter - Exam General appearance: no acute distress - EENT Eyes: PERRLA ENT: NA/AT Ears: bilateral: normal - Neck Neck: no lymphadenopathy, normal ROM Carotids: bilateral: upstroke normal - Respiratory Respiratory: bilateral: rales - Cardiovascular Rhythm: regular Heart sounds: normal: S1, S2 leg Peripheral Edema: bilateral: None ankle Peripheral Edema: bilateral: 1+ foot Peripheral Edema: bilateral: 1+ - Gastrointestinal General gastrointestinal: no organomegaly, soft, no tenderness - Integumentary Integumentary: normal turgor - Neurologic Neurologic: CNII-XII intact - Musculoskeletal Musculoskeletal: generalized weakness, strength equal bilaterally - Psychiatric Psychiatric: A&O x's 3, appropriate affect, intact judgment & insight - Labs CBC & Chem 7: 11/21/20 07:18 11/21/20 07:18 Labs: Abnormal Lab Results - Last 24 Hours (Table) 11/21/20 11/21/20 Range/Units 07:18 07:18 WBC 13.4 H (3.8-10.6) k/uL Hct 46.7 H (34.0-46.0) % RDW 17.4 H (11.5-15.5) % Neutrophils # 11.3 H (1.3-7.7) k/uL Sodium 130 L (137-145) mmol/L BUN 50 H (7-17) mg/dL Glucose 159 H (74-99) mg/dL Total Bilirubin 2.6 H (0.2-1.3) mg/dL AST 52 H (14-36) U/L ALT 86 H (4-34) U/L Alkaline Phosphatase 185 H (38-126) U/L Total Protein 5.4 L (6.3-8.2) g/dL Albumin 2.8 L (3.5-5.0) g/dL Assessment and Plan Plan: #1. Acute on chronic dyspnea and acute hypoxic respiratory failure, multifactorial, related to chronic CHF, with EF of 45%,, chronic generalized pericardial effusion, amyloidosis, and small pleural effusion. #2. Pulmonary embolism, acute, CTA chest showed small segmental filling defect in the right lower lobe #3. Multiple readmissions to the hospital recently, for acute exacerbation of CHF, was recently discharged to [facility] on 10/25/2020 #4. Small right pleural effusion, no need for drainage. Patient previously undergone right-sided thoracentesis with a transudate of fluid, nondiagnostic cytology, and negative cultures. This was done on 10/08/[address] Lewis #5. Amyloidosis, with restrictive cardiomyopathy, has not started treatment yet. #6. Multiple myeloma, recently diagnosed, has not started treatment #7. History of myocardial infarction #8. Retention #9. Hyperlipidemia #10. Intermittent asthma, currently stable #11. Generalized anxiety disorder Plan: continue Eliquis The Doppler of the lower extremities extremities positive for DVT in the femoral vein Chest x-ray and CTA chest reviewed, no need for thoracente thoracentesis at this time Cardiac exam showed restrictive cardiomyopathy with an ejection fraction of 40- 45%. RV is normal size. Pulmonary pressures of around 37.4. She may need home 02
--- NOTE | 2020-11-21 12:24 | P.PN ---
Subjective Progress Note Date: 11/21/20 The patient is a 70-year-old female with multiple complex medical issues, who is currently admitted to the hospital with bilateral pulmonary emboli and congestive heart failure. Echocardiogram reveals restrictive cardiomyopathy with EF at 40-45%, moderate tricuspid regurgitation, and mild pulmonary hypertension. Lower extremity venous Dopplers positive for DVT in right femoral vein, likely being the source of her bilateral pulmonary emboli. Patient was interviewed and examined lying comfortably in bed. She continues to have shortness of breath. She states she can rest comfortably at 30. No chest pain or chest pressure. No palpitations or dizziness or lightheadedness. GENERAL: Ill-appearing, in no acute distress. NECK: Supple without JVD or thyromegaly. LUNGS: Diffuse crackles throughout left lobe him right lower lobe. Respiration equal and unlabored. HEART: Regular rate and rhythm without murmurs, rubs or gallops. S1 and S2 heard. EXTREMITIES: Normal range of motion.+1 edema. No clubbing or cyanosis. Peripheral pulses intact and strong. VITALS: Temperature 97.4F, pulse rate 82, respiratory rate 18, blood pressure 92/61, SpO2 96% on 3 L nasal cannula TELEMETRY: Sinus rhythm with heart rates in the mid 80s LABS: WBC 13.4, hemoglobin 15.1, hematocrit 46.7, platelet 219, sodium 1:30, potassium 4.5, BUN 50, creatinine 0.66, AST 52, ALT 86 IMPRESSION: Systolic and diastolic cardiac congestive heart failure, acute on chronic Restrictive cardiomyopathy Chronic pericardial effusion, small and unchanged Bilateral pulmonary emboli Positive for DVT, right common femoral and deep femoral veins Amyloidosis Multiple myeloma Hyponatremia, improving Transaminase, improving PLAN: Avoid aggressive diuresis with restrictive cardiomyopathy Strict I&O's Further recommendations will be based upon clinical course The patient has been seen and evaluated. Plan of care has been reviewed and agreed upon by Dr Albert. Objective - Vital Signs Vital signs: Vital Signs Temp 97.4 F L 11/21/20 11:38 Pulse 82 11/21/20 11:38 Resp 18 11/21/20 11:38 BP 92/61 11/21/20 11:38 Pulse Ox 96 11/21/20 11:38 Intake & Output 11/20/20 11/21/20 11/21/20 18:59 06:59 18:59 Intake Total 0 Output Total 500 200 Balance -500 -200 Weight 68 kg Intake: Oral 0 Output: Urine 500 200 Other: Voiding Method Indwelling Catheter Indwelling Catheter # Voids 1 - Labs CBC & Chem 7: 11/21/20 07:18 11/21/20 07:18 Labs: Abnormal Lab Results - Last 24 Hours (Table) 11/21/20 11/21/20 Range/Units 07:18 07:18 WBC 13.4 H (3.8-10.6) k/uL Hct 46.7 H (34.0-46.0) % RDW 17.4 H (11.5-15.5) % Neutrophils # 11.3 H (1.3-7.7) k/uL Sodium 130 L (137-145) mmol/L BUN 50 H (7-17) mg/dL Glucose 159 H (74-99) mg/dL Total Bilirubin 2.6 H (0.2-1.3) mg/dL AST 52 H (14-36) U/L ALT 86 H (4-34) U/L Alkaline Phosphatase 185 H (38-126) U/L Total Protein 5.4 L (6.3-8.2) g/dL Albumin 2.8 L (3.5-5.0) g/dL
--- NOTE | 2020-11-21 12:25 | P.PN ---
Subjective Progress Note Date: 11/21/20 History of present illness This 70-year-old pleasant female patient of Dr. Hand, with underlying history of paraesophageal hiatal hernia and GERD, chronic bronchial asthma, mild intermittent hypertension, hyperlipidemia, and recently diagnosed to have amyloidosis and multiple myeloma, through confirmed bone marrow biopsy was supposed to start treatment with Dr. Madrid on 10/11/2020. She was recently hospitalized, 08/25/2020, for shortness of breath, sees Dr. Soria cardiology and was diagnosed to have an STEMI, in, 07/17/2020, in the clinic in [facility]. She underwent a heart cath, the second time and was found to have nonobstructive CAD, diastolic CHF, EF was documented to be normal that time, and was discharged with Cozaar and Lopressor Lasix and potassium. Patient had a prolonged hospitalization from October 09/2021 to October 25/2021 for worsening shortness of breath. She was treated for cardiomyopathy likely secondary to amyloidosis from multiple myeloma, pleural effusions underwent thoracentesis where 700 mL was removed. Pleural fluid was transudative and cytology was nondiagnostic negative fluid culture. Patient had echocardiogram during that admission suggest EF of 45-50% moderate concentric left ventricular hypertrophy with moderate generalized pericardial effusion mild pulmonary hypertension. Patient was treated with dexamethasone for multiple myeloma but could not be started on chemotherapy Remlivid as patient was discharged to subacute rehab . Patient has been home for past 3 weeks where she was noted to be more short of breath with increased weakness. According to the family patient has not been active at home and is progressively getting worse despite getting physical therapy. On assessment in the ER, chest x-ray Mild congestive heart failure with chronic pleural effusion with slightly increased congestion compared to previous x-ray. CT is suggestive of bilateral small lower lobe pulmonary emboli which appeared new compared to on exam but changes of congestive heart failure and pulmonary edema right pleural effusion and moderate cardiomegaly epicardial effusion and ground glass interstitial edema that increased compared to old exam. EKG obtained suggested normal sinus rhythm with sinus arrhythmia. Overnight patient continued to have low blood pressure with a systolic in the 70s and diastolic in the 50s. One and a half liter of IV fluid was given with improvement in pressures. Patient is currently on 4 L of oxygen saturating at 94% labs reviewed suggest a WBC of 10.2 hemoglobin 16.8 hematocrit 50.7 d-dimer 2.3 sodium 128 potassium 4.6 BUN of 43 creatinine 0.6 elevated liver enzymes AST 59 ALT 122 alkaline phosphatase 222 troponin elevation of 0.1880 BNP elevated at 17,000 she was started on heparin infusion for pulmonary embolism. Venous Dopplers and echocardiogram ordered. Cardiothoracic surgery consulted for moderate pericardial effusion chest x-ray Mild congestive heart failure with chronic pleural effusion with slightly increased congestion compared to previous x-ray. CT is suggestive of bilateral small lower lobe pulmonary emboli which appeared new compared to on exam but changes of congestive heart failure and pulmonary edema right pleural effusion and moderate cardiomegaly epicardial effusion and ground glass interstitial edema that increased compared to old exam. EKG obtained suggested normal sinus rhythm with sinus arrhythmia 11/21 patient examined bedside. She is currently on 3 L of oxygen saturating 95% afebrile pulse 87 and respiratory rate 16 blood pressure 90/61. Patient's has improvement in sodium to 130 potassium 4.2 BUN 15 creatinine 0.6 glucose 159 and total bilirubin 2.6 AST 52 ALT 86 alkaline phosphatase 185 patient was noted to have elevated liver enzymes in the previous hospitalization total bilirubins continued to downtrend.ltrasound liver obtained during last hospitalization was found to have acute cholecystitis with that the cholecystic fluid. This Vessel surgery has seen the patient plan to transition patient to oral anticoagulation with no surgical intervention. Patient initiated on Eliquis 10 mg twice a day. Doppler lower extremity suggestive nonocclusive DVT in the right lower extremity. Echocardiogram suggestive of restrictive cardiomyopathy with EF 40- 45%. Probably pressure around 37.4. Moderate pleural effusion noted. Cardi othoracic surgeon plans no intervention. PTOT consult. Patient initiated on Lasix 20 mg IV daily ROS Constitutional: Denies chills, Denies fever,endorses increasing weaknesss, Denies weight loss Eyes: denies decreased vision, denies diplopia, denies discharge, denies pain Ears: deny: decreased hearing Ears, nose, mouth and throat: Denies dental pain, Denies headache, Denies nasal discharge, Denies nose pain Cardiovascular: Denies chest pain,endorsesd exercise tolerance endorses edema, Denies high blood pressure, Denies irregular heart beat, Denies palpitations, Denies paroxysmal nocturnal dyspnea, Denies rapid heart beat, Denies shortness of breath Respiratory Endorses congestion, Denies cough, Denies cough with sputum endorses dyspnea Denies home oxygen, Denies wheezing Gastrointestinal: Denies abdominal pain, Denies change in bowel habits, Denies coffee ground emesis, Denies early satiety, Denies excessive gas, Denies heartburn, Denies hematemesis, Denies hematochezia, Denies loss of appetite, Denies nausea, Denies vomiting Genitourinary: Denies dysuria, Denies flank pain, Denies kidney stones, Denies menorrhagia, Denies urgency, Denies urinary frequency Musculoskeletal Endorses gait dysfunction, Denies limitation of motion, Denies morning stiffness, Denies muscle cramps Integumentary: Denies rash, Denies wounds, Denies brittle nails, Denies change in hair/nails, Denies darkening of skin Neurological: Denies balance difficulties, Denies change in speech, Denies double vision, Denies gait dysfunction, Denies loss of vision, Denies motor disturbance, Denies numbness, Denies paralysis, Denies paresthesias, Denies seizures Psychiatric: Denies anxiety, Denies depression Endocrine: Denies excessive sweating, Denies excessive thirst, Denies high blood sugars, Denies palpitations Hematologic/Lymphatic: Denies easy bruising, Denies lymphadenopathy Physical exam - Constitutional General appearance: cooperative, no acute distress,significantly debilitated - EENT Eyes: anicteric sclerae, PERRLA, normal appearance ENT: hearing grossly normal - Neck Neck: no lymphadenopathy, normal ROM, no other, no rigidity, no stridor, no thyromegaly - Respiratory Respiratory: bilateral:Increased air entry with crackles at the bases, rhonchi no wheezing - Cardiovascular Rhythm: regular Heart sounds: normal: S1, S2 Abnormal Heart Sounds: no systolic murmur, no diastolic murmur, positive for S3 Gallop, no S4 Gallop, no click, no other - Gastrointestinal General gastrointestinal: normal bowel sounds, soft - Integumentary Integumentary: no rash - Neurologic Neurologic:No motor or sensory deficits - Musculoskeletal Musculoskeletal Gait not assessed strength equal bilaterally - Psychiatric Psychiatric: A&O x's 3, appropriate affect Assessment and plan .#1 acute hypoxic respiratory failure secondary to acute on chronic systolic and diastolic congestive heart failure and pulmonary embolism. Heparin drip switch to Eliquis. Venous Dopplers ordered. Echocardiogram with EF 40-45 % with severe concentric left ventricular hypertrophy small likely restrictive cardiomyopathy pericardial effusion mild enlargement of right ventricle mild pulmonary hypertension September 2020 monitor KATARINA's and daily weights Lasix initiated 20 IV daily #2. Elevated troponins which is chronic Patient had recent heart catheterization in [place] was reported as negative for obstructive disease 07/02. Cardiology consult and repeat troponins. Echocardiogram conclusion: EF between 40-45%, severe concentric left ventricular atrophy, mild generalized pericardial effusion present, right ventricle is mildly enlarged, ileus mildly dilated, mild pulmonary hypertension. Her ventricular systolic pressure measured by Doppler is 37.4 mmHg. moderate tricuspid regurgitation 3. Chronic pericardial effusion appears small per echocardiogram repeat echocardiogram pending. Cardiothoracic surgery consulted 4. Amyloidosis, suspect nonischemic cardiomyopathy, no treatment initiated yet, oncology consult appreciated 5. Multiple myeloma. Patient completed course of dexamethasone. Plan for Revlima once patient finishes physical therapy but patient continues to stay physically debilitated and needs inpatient or subacute rehab the treatment could not be initiated. 6. Acute Transaminitis with elevated total bili / jaundice possibly secondary to cholecystitis possibly secondary to amyloid as well, GI consult 7. Hyponatremia likely secondary to hypovolemia from congestive heart failure c ontinue to monitor daily CMP 8. Restrictive cardiomyopathy likely secondary to multiple myeloma. Continue diuresis with IV Lasix monitor KATARINA's daily weight 9. Hypertension. Hold Lopressor 25 mg twice daily due to low blood pressure. 10. Hiatal hernia status post robotic-assisted laparoscopic repair of incarcerated paraesophageal hernia in April 2020, stable. 11. Mild intermittent asthma, stable. 12. Gastroesophageal reflux disease and GI prophylaxis. Continue omeprazole 20 g twice daily. 13. Generalized anxiety disorder. Continue Xanax 0.25 mg twice daily. 14. Bilateral Lower extremity weakness. Due to generalized debility CAT scan of the lumbar spine done in the last was negative for compression spine. 15 small pleural effusion status post thoracentesis 700 mL the previous admission. Pulmonary consulted 16. Hyperlipidemia. Hold Lipitor 20 mg daily due to transaminitis. 15. DVT right lower extremity nonocclusive on Eliquis 10 mg twice a day 16. GI prophylaxis. Protonix 40 mg CODE STATUS: CODE STATUS discussed with patient patient would like to be a no c ode and does not require intubation but nurse updated later the family decided to keep patient for code Discharge plan: PT OT consult for possible rehab placement. Spoke to the power of defense attorney of the patient the would like the patient go to [facility] so that she can reach treated for her cancer Objective - Vital Signs Vital signs: Vital Signs Temp 97.4 F L 11/21/20 11:38 Pulse 82 11/21/20 11:38 Resp 18 11/21/20 11:38 BP 92/61 11/21/20 11:38 Pulse Ox 96 11/21/20 11:38 Intake & Output 11/20/20 11/21/20 11/21/20 18:59 06:59 18:59 Intake Total 0 Output Total 500 200 Balance -500 -200 Weight 68 kg Intake: Oral 0 Output: Urine 500 200 Other: Voiding Method Indwelling Catheter Indwelling Catheter # Voids 1 - Labs CBC & Chem 7: 11/21/20 07:18 11/21/20 07:18 Labs: Abnormal Lab Results - Last 24 Hours (Table) 11/21/20 11/21/20 Range/Units 07:18 07:18 WBC 13.4 H (3.8-10.6) k/uL Hct 46.7 H (34.0-46.0) % RDW 17.4 H (11.5-15.5) % Neutrophils # 11.3 H (1.3-7.7) k/uL Sodium 130 L (137-145) mmol/L BUN 50 H (7-17) mg/dL Glucose 159 H (74-99) mg/dL Total Bilirubin 2.6 H (0.2-1.3) mg/dL AST 52 H (14-36) U/L ALT 86 H (4-34) U/L Alkaline Phosphatase 185 H (38-126) U/L Total Protein 5.4 L (6.3-8.2) g/dL Albumin 2.8 L (3.5-5.0) g/dL
--- NOTE | 2020-11-21 13:42 | P.CONS ---
History of Present Illness - Reason for Consult Consult date: 11/20/20 Myeloma, SOB, PE - History of Present Illness Ms Stevens is a 70 yr old white female initially seen in consult at [facility]. She has multiple medical problems. The patient lost about 20 pounds after hernia surgery in 04/22 unit in 07/21 she developed chest discomfort and shortness of breath while in [place] and was admitted to the hospital. She was diagnosed with a and STEMI and congestive heart failure. She had cardiac catheterization but apparently no specific intervention was required. The patient remained short of breath despite treatment for congestive heart failure, and also complained of intermittent lower exudate swelling. She was admitted for further management, with chest x-ray and CTA showing possible pericardial effusion. Echocardiogram showed a small pericardial effusion with out definite compromise, but appearance of the myocardium was highly suspicious for cardiac amyloidosis. There was a history of amyloidosis in her mother and a paternal aunt. Patient's lambda light chain levels were increased at 73.4 mg/dL. She had additional labs ordered, with prophylactic was showing no monoclonal protein. However kappa light chain was normal at 1.38, indicating significant K/L ratio abnormality, highly suspicious for a monoclonal process. The patient was discharged after symptomatically treatment for her heart failure symptoms. She was seen for her first office visit on 09/06/20. the patient proceeded to bone marrow aspiration biopsy on 09/18/20. This revealed overt multiple myeloma with 20-30% involvement with lambda restricted monoclonal plasma cells. bone marrow was negative for amyloid 24 hr urine showed lambda light chain of 2.02 grams per liter, and M protein of about 350 mg in 24 hours. on survey showed possible lucent areas in the calvarium, and right proximal humerus. Additional labs to check for MPD, given the high normal hemoglobin were ne gative the patient was recommended to start treatment for myeloma with the RVD regimen, which would also be an effective regimen to treat amyloidosis. She was supposed to start treatment on 10/11/20. However she was admitted to the hospital prior to that with recurrent CHF. She received treatment again with high-dose bolus Decadron 4 days on and 4 days off during hospitalization. While this 30 status did improve slowly, the patient remained quite debilitated with very diminished mobility. [facility] Unfortunately due to coverage issues, the patient was not allowed to have either chemotherapy or Revlimid while in the ECF. Therefore she was continued on high-dose bolus Decadron 40 mg 4 days on and 4 days off, with a plan to start the RVD regimen post discharge The patient's case was discussed in detail with her daughter last week. She indicated that her respiratory status appeared to be quite stable. However there did not appear to be begin improvement in terms of her mobility and activity. According to the daughter her insurance was going to stop coverage for further ECF stay. Therefore they were planning to move her to an assisted living facility, with physical therapy at home, so that she could start the initially planned regimen. The patient was brought back to the ER on 11/20/20 because of recurrent shortness of breath. Most of the history was obtained from the patient's daughters were at the bedside. Apparently the patient had been noted to be somewhat more short of breath about 4-5 days ago but symptoms had significantly increased over the past 1-2 days. She'll also noted some recurrent leg swelling and orthopnea. In the emergency room the patient had a CTA that showed a left lower lobe thrombus. Chest x-ray and CT again showed evidence of bilateral opacities consistent with congestion. CTA had indicated a pericardial effusion. However echocardiogram revealed a small effusion that did not appear to be significant. It appears that the patient had been tolerating the high-dose steroids well subjectively. Improvement in lower extremity strength has been fairly small. He stated that she was able to transfer out of bed and walk short distances with a walker, with a 1 person assist. Review of Systems Constitutional: Reports poor appetite, Reports weakness Eyes: denies blurred vision, denies pain Ears: deny: decreased hearing, ear discharge, earache, tinnitus Ears, nose, mouth and throat: Denies headache, Denies sore throat Cardiovascular: Reports edema, Reports shortness of breath Respiratory: Reports dyspnea Gastrointestinal: Denies abdominal pain, Denies diarrhea, Denies nausea, Denies vomiting Genitourinary: Denies dysuria, Denies hematuria Menstruation: Reports postmenopausal Musculoskeletal: Reports muscle weakness Integumentary: Denies pruritus, Denies rash Neurological: Reports weakness Psychiatric: Denies anxiety, Denies depression Endocrine: Reports fatigue Hematologic/Lymphatic: Reports as per HPI Past Medical History Past Medical History: Asthma, Chest Pain / Angina, GERD/Reflux, Hyperlipidemia, Hypertension, Myocardial Infarction ([place]) Additional Past Medical History / Comment(s): Hiatal Hernia, hx 2 ulcers in stomach; Bursitis both knees. Hx pancreatitis, SOB w/exertion due to hernia, history of pericardial effusion, right pleural effusion, status post right thoracentesis Last Myocardial Infarction Date:: 07/2020 History of Any Multi-Drug Resistant Organisms: None Reported Past Surgical History: Back Surgery, Heart Catheterization, Hysterectomy, Orthopedic Surgery, Tonsillectomy Additional Past Surgical History / Comment(s): Back surgery with hardware, L carpal tunnel, L foot surgery, Past Anesthesia/Blood Transfusion Reactions: Previous Problems w/ Anesthesia, Motion Sickness, Postoperative Nausea & Vomiting (PONV) Additional Past Anesthesia/Blood Transfusion Reaction / Comm: was told stopped breathing during EGD Date of Last Stent Placement:: unknown Past Psychological History: Depression Smoking Status: Never smoker Past Alcohol Use History: Rare Past Drug Use History: None Reported - Past Family History Mother Family Medical History: No Reported History, Asthma, Diabetes Mellitus Father Family Medical History: No Reported History Additional Family Medical History / Comment(s): Father lived to be 90yrs. Sister(s) Family Medical History: No Reported History Daughter(s) Family Medical History: No Reported History Medications and Allergies Home Medications Medication Instructions Recorded Confirmed Type Omeprazole 20 mg PO BID 08/24/20 11/19/20 History Multivitamins, Thera [Multivitamin 1 tab PO DAILY 10/07/20 11/19/20 History (formulary)] Sertraline [Zoloft] 50 mg PO DAILY 10/07/20 11/19/20 History Spironolactone [Aldactone] 25 mg PO BID 10/07/20 11/19/20 History ALPRAZolam [Xanax] 0.25 mg PO HS #3 tab 10/18/20 11/19/20 Rx Furosemide [Lasix] 40 mg PO DAILY #30 tablet 10/18/20 11/19/20 Rx Metoprolol Tartrate [Lopressor] 12.5 mg PO DAILY tab 10/18/20 11/19/20 Rx Acetaminophen [Tylenol 8 Hour] 650 mg PO Q4H PRN 11/19/20 11/19/20 History Allergies Allergy/AdvReac Type Severity Reaction Status Date / Time No Known Allergies Allergy Verified 11/19/20 21:34 Physical Exam Vitals: Vital Signs Temp Pulse Resp BP Pulse Ox 08/21/21 12:37 84 18 106/72 95 11/20/20 12:21 82 16 99/70 94 L 11/20/20 11:55 84 11/20/20 11:47 80 11/20/20 07:58 81 16 107/69 94 L 11/20/20 07:48 80 11/20/20 07:38 78 11/20/20 06:50 97.5 F L 79 18 94/66 94 L 11/20/20 03:51 79 18 97/63 92 L 11/20/20 03:29 98.2 F 79 16 88/62 94 L 11/20/20 02:37 78 11/20/20 02:27 77 11/20/20 02:04 77 18 87/60 93 L 11/20/20 01:30 86/63 11/20/20 00:10 76/54 11/19/20 23:55 77 16 80/54 95 11/19/20 22:55 83/53 11/19/20 22:42 79/56 11/19/20 21:55 86/53 11/19/20 20:28 68 16 88/62 94 L 11/19/20 17:52 58 L 16 92/63 93 L Intake and Output 11/20/20 11/20/20 11/20/20 06:59 14:59 22:59 Intake Total 81.323 Balance 81.323 Intake: Intake, IV Titration 81.323 Amount Heparin Sod,Pork in 0.45% 81.323 NaCl 25,000 unit In 0.45 % NaCl 1 250ml.bag @ 18 UNITS/KG/HR 9.798 mls/hr IV .Q24H [facility] Rx#: [id number] - Constitutional General appearance: no acute distress - EENT Eyes: EOMI, PERRLA ENT: hearing grossly normal, normal oropharynx - Neck +ve JVD Neck: no lymphadenopathy - Respiratory Respiratory: bilateral: rales - Gastrointestinal General gastrointestinal: normal bowel sounds, soft - Integumentary Integumentary: normal - Neurologic Neurologic: CNII-XII intact - Musculoskeletal Musculoskeletal: generalized weakness, strength equal bilaterally - Psychiatric Response is somewhat slow Psychiatric: A&O x's 3 Results CBC & Chem 7: 11/21/20 07:18 08/22/21 07:18 Labs: Abnormal Lab Results - Last 24 Hours (Table) 11/19/20 11/19/20 11/19/20 Range/Units 16:16 16:16 16:16 Hgb 16.8 H (11.4-16.0) gm/dL Hct 50.5 H (34.0-46.0) % RDW 17.4 H (11.5-15.5) % APTT (22.0-30.0) sec D-Dimer 2.34 H (<0.60) mg/L FEU Sodium 128 L (137-145) mmol/L Chloride 92 L (98-107) mmol/L BUN 43 H (7-17) mg/dL Glucose 101 H (74-99) mg/dL Total Bilirubin 2.7 H (0.2-1.3) mg/dL AST 59 H (14-36) U/L ALT 122 H (4-34) U/L Alkaline Phosphatase 222 H (38-126) U/L Creatine Kinase <20 L (30-135) U/L CK-MB (CK-2) (0.0-2.4) ng/mL Troponin I (0.000-0.034) ng/mL Total Protein 5.6 L (6.3-8.2) g/dL Albumin 3.0 L (3.5-5.0) g/dL 11/19/20 11/19/20 11/20/20 Range/Units 16:16 21:28 00:00 Hgb (11.4-16.0) gm/dL Hct (34.0-46.0) % RDW (11.5-15.5) % APTT (22.0-30.0) sec D-Dimer (<0.60) mg/L FEU Sodium (137-145) mmol/L Chloride (98-107) mmol/L BUN (7-17) mg/dL Glucose (74-99) mg/dL Total Bilirubin (0.2-1.3) mg/dL AST (14-36) U/L ALT (4-34) U/L Alkaline Phosphatase (38-126) U/L Creatine Kinase (30-135) U/L CK-MB (CK-2) 3.8 H (0.0-2.4) ng/mL Troponin I 0.188 H* 0.187 H* 0.175 H* (0.000-0.034) ng/mL Total Protein (6.3-8.2) g/dL Albumin (3.5-5.0) g/dL 11/20/20 11/20/20 11/20/20 Range/Units 02:04 02:04 10:14 Hgb (11.4-16.0) gm/dL Hct (34.0-46.0) % RDW 18.1 H (11.5-15.5) % APTT 188.2 H* 74.1 H (22.0-30.0) sec D-Dimer (<0.60) mg/L FEU Sodium (137-145) mmol/L Chloride (98-107) mmol/L BUN (7-17) mg/dL Glucose (74-99) mg/dL Total Bilirubin (0.2-1.3) mg/dL AST (14-36) U/L ALT (4-34) U/L Alkaline Phosphatase (38-126) U/L Creatine Kinase (30-135) U/L CK-MB (CK-2) (0.0-2.4) ng/mL Troponin I (0.000-0.034) ng/mL Total Protein (6.3-8.2) g/dL Albumin (3.5-5.0) g/dL Comments: ECHO report reviewed Chest x-ray: report reviewed CT scan - chest: report reviewed Assessment and Plan (1) Pulmonary embolism Narrative/Plan: The patient had developed recurrent shortness of breath over the past few days. CTA shows left lower lobe pulmonary embolism which is a new finding. This could be the major cause of her recurrent acute respiratory insufficiency for at least a significant component. It was discussed with the patient and her family that she is at risk for the same because of her underlying malignancy, decreased ability, and high-dose steroid. Agree with IV heparin. Dopplers of the lower extremities will be ordered for a baseline. Switched to by mouth DOAC when stable Current Visit: Yes Status: Acute Code(s): I26.99 - OTHER PULMONARY EMBOLISM WITHOUT ACUTE COR PULMONALE SNOMED Code(s): 58066274 (2) Congestive heart failure Narrative/Plan: Condition definitely appears to have at least some component of recurrent congestive heart failure. As noted previously this is due to left ventricular diastolic dysfunction from myocardial infiltration/deposition. The patient had actually been doing quite well until about 2-3 days ago. Possibly the CHF was precipitated by the PE. - Case was discussed in detail with the admitting service. The patient was hypotensive on presentation and had to receive additional fluids. Hypotension would complicate any attempts to diurese the patient. The hypotension could h ave been due to the PE, and/or steroid insufficiency. It was therefore persisted that the patient may benefit from temporary stress dose steroids if she remained hypotensive and required diuresis. Current Visit: Yes Status: Acute Code(s): I50.9 - HEART FAILURE, UNSPECIFIED SNOMED Code(s): 04597403 (3) Multiple myeloma Narrative/Plan: Diagnostic and therapeutic circumstances so far as noted in the HPI. Strictly from the myeloma standpoint the patient's prognosis is fairly reasonable, as this is typically a condition responsive to treatment. The proposed RVD regimen is typically well tolerated, and has a high response rate usually in the 90% range. Her situation however is completed by her debility related to her episodes of CHF and hospitalization. This has required ECF stay during which the patient was unable to receive optimal myeloma treatment because of insurance reasons. She has been treated with high-dose bolus steroids which is a reasonable alternative. However over time this may cause other adverse events such as proximal myopathy leading to increased debility, hypertension and venous thrombus embolism. - The patient's family were in any case planning to go to assisted living, where she can start the planned RVD regimen for myeloma. Hopefully if the patient responds well to treatment including anticoagulation, then that plan can be implemented. Current Visit: No Status: Acute Priority: High Code(s): C90.00 - MULTIPLE MYELOMA NOT HAVING ACHIEVED REMISSION SNOMED Code(s): 816683280 Plan: Defer to the admitting service for management of her other medical problems. Case discussed in detail with them
[2020-11-21 16:19] LABS: Protein, Total 5.3 g/dL (6.2-8.2)
[2020-11-21] MEDS: ALPRAZolam 0.25 MG TAB PO SCH (21:46)
[2020-11-22] MEDS: PANTOPRAZOLE 40 MG TABLET PO SCH (06:36)
[2020-11-22 07:39] LABS: ALT 101 U/L (4-34); AST 67 U/L (14-36); African American GFR (CKD) >90 (>60 ml/min/1.73 sqM); Albumin 2.9 g/dL (3.5-5.0); Alkaline Phosphatase 179 U/L (38-126); Anion Gap 3 mmol/L; Blood Urea Nitrogen 45 mg/dL (7-17); Calcium 9.7 mg/dL (8.4-10.2); Carbon Dioxide 30 mmol/L (22-30); Chloride 98 mmol/L (98-107); Glucose 78 mg/dL (74-99); Non-African American GFR(CKD) 90 (>60 ml/min/1.73 sqM); Sodium 131 mmol/L (137-145); Total Bilirubin 2.2 mg/dL (0.2-1.3); Total Protein 5.5 g/dL (6.3-8.2)
[2020-11-22] MEDS: SERTRALINE 50 MG TAB PO SCH (07:48)
[2020-11-22] MEDS: ASPIRIN 325 MG TAB PO SCH (07:48)
[2020-11-22] MEDS: APIXABAN 5 MG TAB PO SCH ×2 (07:48→21:11)
[2020-11-22] MEDS: FUROSEMIDE 10 MG/ML 2 ML VIAL IV SCH (07:48)
[2020-11-22 07:52] LABS: Anisocytosis Slight; Basophils % (A) 0 %; Eosinophils % (A) 0 %; HCT 46.9 % (34.0-46.0); HGB 15.5 gm/dL (11.4-16.0); Lymphocytes # (A) 1.3 k/uL (1.0-4.8); Lymphocytes % (A) 14 %; MCHC 33.2 g/dL (31.0-37.0); MCV 96.6 fL (80.0-100.0); Macrocytosis Slight; Mean Platelet Volume 8.5; Monocytes # (A) 0.6 k/uL (0-1.0); Monocytes % (A) 7 %; Neutrophils # (A) 7.5 k/uL (1.3-7.7); Neutrophils % (A) 77 %; Platelet Count 226 k/uL (150-450); RBC 4.85 m/uL (3.80-5.40); RDW 17.9 % (11.5-15.5); WBC 9.6 k/uL (3.8-10.6)
[2020-11-22] MEDS: IPRATROPIUM-ALBUTEROL 3 ML NEB INHALATION SCH ×3 (08:31→18:38)
[2020-11-22] MEDS ORDERED: FUROSEMIDE 20 MG TAB PO SCH (10:30)
[2020-11-22] MEDS ORDERED: METOPROLOL TARTRATE 12.5 MG TAB PO SCH (10:30)
[2020-11-22 12:53] LABS: Albumin 2.64 g/dL (3.80-4.90); Gamma Globulin 0.75 g/dL (0.70-1.50)
--- NOTE | 2020-11-22 13:17 | P.PN ---
Subjective Progress Note Date: 11/22/20 Principal diagnosis: Dyspnea, acute on chronic, acute pulmonary embolism, chronic CHF This is a 70-year-old female who we recently saw in consultation for shortness of breath, and right-sided pleural effusion in the beginning of September 2020 and patient underwent right-sided thoracentesis for symptomatic relief on 10/08/2020 with removal of 700 mL of pleural fluid, she was transudative, with negative cultures and pleural fluid cytology was nondiagnostic. Patient has had several hospitalizations recently for some breath related to acute systolic CHF. She has a long and complicated medical history. During one of her previous hospitalizations patient also had moderately sized pericardial effusion, without evidence of cardiac tamponade. Patient was recently diagnosed with multiple myeloma, he has not started treatment yet. Seen in consultation by medical oncology who recommended starting the patient on Revlimid. Patient also had a hospitalization in [place] earlier in the year where she had the ST elevated myocardial infarction, and cardiac catheterization with no specific intervention. Echocardiogram showed a small pericardial effusion without definite compromise, but the appearance of myocardium was suspicious for amyloidosis, and there is a family history of amyloidosis in her mother and a paternal aunt. Echocardiogram showed ejection fraction of 45-50%, inferior LV wall hypokinesis, and inferior septal wall hypokinesis. Patient's CHF was optimized, she was discharged to [facility] on 10/25/2020 for rehab. she was not requiring oxygen at the ECF, she noted increased shortness of breath and swelling in her lower extremities. She denied any chest pain, denied any cough or congestion, she is not sure whether she was receiving Lasix at the [facility]. She states she was doing well following her discharge to [facility], she was able to ambulate and participate with physical therapy. On 11/19/2020 patient was brought in to the emergency department per EMS with complaints of difficulty in breathing. Her symptoms have been progressively worse in the past 4 days. Chest X-ray showed mild CHF, CTA chest was completed showing changes of congestive heart failure and pulmonary edema, small right pleural effusion, small pericardial effusion. There was a patchy pulmonary interstitial groundglass infiltrates. There was a small filling defect within the right lower lobe pulmonary artery involving the posterior basal segment branch consistent with a PE. Hemodynamically patient was having some hypotension with the systolic blood pressures in the 70s and diastolic in the 50s. She has been afebrile. Clinically on 3 L of oxygen and pulse ox 94%, her labs have been reviewed, showing white blood cell, 10.2, hemoglobin of 16.8, hematocrit was 50. 7, d-dimer is 2.34, sodium was 128, potassium was 4.6, B1 is 43, creatinine 0.61, patient had elevation of her liver enzymes with AST of 59, ALT of 122, alkaline phosphatase of 222, she had troponin elevation which topped out at 0.188, her proBNP was elevated at 17,000.Eevated proBNP suggested acute CHF, clinically patient appears to be hypovolemic, and she was given gentle hydration of 1 L maintain her blood pressure. She was started on heparin infusion for pulmonary embolism. This morning she seen in the emergency department, she is short of breath at rest, but no acute distress, she remains on 4 L of oxygen. Currently blood pressure is 90/64, she is in sinus rhythm with a rate of 84, no complaints of chest pain, lung sounds revealed coarse crackles throughout bilateral bases, she has mild swelling in her lower extremities. 11/21/2020, the patient is alert and oriented 2. No significant respiratory distress. She is on oxygen at 4 L per minute nasal cannula. She is already on Eliquis. She is resting comfortably in bed. No chest pain. No angina. No palpitation. No worsening shortness of breath. The Doppler of the lower extremity showed a nonocclusive DVT in the right lower extremity. This goes along with her pulmonary embolism and the patient is currently on Eliquis without any complications. On 11/22/2020 patient seen in follow-up on selective care unit, she is currently sitting up in the recliner, appears weak, but appears to be in no acute distress, seems less dyspneic compared to days ago on admission when she was first seen in the emergency department. Breathing comfortably right now, she remains on 3 L of oxygen and the pulse ox of 97%, she is afebrile, blood pressure is running on the lower side, with systolic between 80-90 BPM, and diastolic in the 50s and 60s, no altered mentation, she is responding appropriately, she is oriented 3, she denies any chest discomfort. She was restarted on Lasix 20 mg daily, she was started on Eliquis for acute pulmonary embolism that was found during this admission. Lower extremity Dopplers were completed, and there was a nonocclusive thrombus in the common femoral vein in the right leg, and no DVT in the left leg. Today's labs have been reviewed showing white blood cell count of 9.6, hemoglobin of 15.5, sodium is 131, dorsally electrolytes were within normal limits, BUN was 45 creatinine 0.63. Chest x-ray and CT angiogram of the chest did not show any thickened pleural fluid for drainage. Objective - Vital Signs Vital signs: Vital Signs Temp 97.7 F 11/22/20 11:59 Pulse 62 11/22/20 11:59 Resp 18 11/22/20 11:59 BP 88/56 11/22/20 11:59 Pulse Ox 97 11/22/20 11:59 Intake & Output 11/21/20 11/22/20 11/22/20 18:59 06:59 18:59 Intake Total 240 240 Output Total 200 800 Balance 40 -800 240 Weight 57 kg Intake: Oral 240 240 Output: Urine 200 800 Other: Voiding Method Indwelling Catheter Indwelling Catheter Indwelling Catheter # Voids 1 # Bowel Movements 1 - Exam General appearance: no acute distress, 70-year-old white female, sitting up in the recliner, appears generally weak, but appears to be in no acute distress, currently on 3 L of oxygen pulse ox of 97% - EENT Eyes: PERRLA ENT: NA/AT Ears: bilateral: normal - Neck Neck: no lymphadenopathy, normal ROM Carotids: bilateral: upstroke normal - Respiratory Respiratory: bilateral: rales - Cardiovascular Rhythm: regular Heart sounds: normal: S1, S2 leg Peripheral Edema: bilateral: None ankle Peripheral Edema: bilateral: 1+ foot Peripheral Edema: bilateral: 1+ - Gastrointestinal General gastrointestinal: no organomegaly, soft, no tenderness - Integumentary Integumentary: normal turgor - Neurologic Neurologic: CNII-XII intact - Musculoskeletal Musculoskeletal: generalized weakness, strength equal bilaterally - Psychiatric Psychiatric: A&O x's 3, appropriate affect, intact judgment & insight - Labs CBC & Chem 7: 11/22/20 06:53 11/22/20 06:53 Labs: Abnormal Lab Results - Last 24 Hours (Table) 11/21/20 11/22/20 11/22/20 Range/Units 13:20 06:53 06:53 Hct 46.9 H (34.0-46.0) % RDW 17.9 H (11.5-15.5) % Sodium 131 L (137-145) mmol/L BUN 45 H (7-17) mg/dL Total Bilirubin 2.2 H (0.2-1.3) mg/dL AST 67 H (14-36) U/L ALT 101 H (4-34) U/L Alkaline Phosphatase 179 H (38-126) U/L Total Protein 5.5 L (6.3-8.2) g/dL Total Protein (PEP) 5.3 L (6.2-8.2) g/dL Albumin 2.9 L (3.5-5.0) g/dL Albumin (PEP) 2.64 L (3.80-4.90) g/dL [id number] 0.49 H (0.10-0.40) g/dL Beta Globulins 0.49 L (0.60-1.30) g/dL Assessment and Plan Plan: Assessment: #1. Acute on chronic dyspnea and acute hypoxic respiratory failure, multifactorial, related to chronic CHF, with EF of 45%,, chronic generalized pericardial effusion, amyloidosis, and small pleural effusion. #2. Pulmonary embolism, acute, CTA chest showed small segmental filling defect in the right lower lobe #3. Multiple readmissions to the hospital recently, for acute exacerbation of CHF, was recently discharged to [facility] on 10/25/2020 #4. Small right pleural effusion, no need for drainage. Patient previously undergone right-sided thoracentesis with a transudate of fluid, nondiagnostic cytology, and negative cultures. This was done on 10/08/[address] Lewis #5. Amyloidosis, with restrictive cardiomyopathy, has not started treatment yet. #6. Multiple myeloma, recently diagnosed, has not started treatment #7. History of myocardial infarction #8. Retention #9. Hyperlipidemia #10. Intermittent asthma, currently stable #11. Generalized anxiety disorder #12. Nonocclusive thrombus in the right leg Plan: Continue current medical treatment No significant pleural fluid on the chest x-ray and a CT angiogram of the chest No worsening dyspnea Patient has been restarted on oral Lasix No plans for thoracentesis Diuretics per medicine and cardiology Continue Eliquis Lower extremity Dopplers were noted Overall prognosis is quite guarded Patient is generally medically debilitated Pulmonary/critical care service will sign off and follow on as-needed basis I performed a history & physical examination of the patient and discussed their management with my nurse practitioner, Shirin Maddox. I reviewed the nurse practitioner's note and agree with the documented findings and plan of care. Lung sounds are positive for diffuse coarse crackles throughout the lung barrientos. The findings and the impression was discussed with the patient. I attest to the documentation by the nurse practitioner. Time with Patient: Less than 30
--- NOTE | 2020-11-22 14:13 | P.PN ---
Subjective Progress Note Date: 11/22/20 Principal diagnosis: Pulmonary embolism, CHF, multiple myeloma In follow-up today patient is sitting up in the chair, she has a wheeled walker but, she is not making it from the bed to the bathroom. She denies any pain, nausea, chest pain or difficulty in breathing. Objective - Vital Signs Vital signs: Vital Signs Temp 97.7 F 11/22/20 11:59 Pulse 62 11/22/20 13:58 Resp 18 11/22/20 13:58 BP 88/56 11/22/20 11:59 Pulse Ox 97 11/22/20 11:59 Intake & Output 11/21/20 11/22/20 11/22/20 18:59 06:59 18:59 Intake Total 240 240 Output Total 200 800 450 Balance 40 -800 -210 Weight 57 kg Intake: Oral 240 240 Output: Urine 200 800 450 Other: Voiding Method Indwelling Catheter Indwelling Catheter Indwelling Catheter # Voids 1 # Bowel Movements 1 - Constitutional General appearance: Present: average body habitus, cooperative, no acute distress - EENT Eyes: Present: anicteric sclerae, EOMI ENT: Present: hearing grossly normal - Respiratory Details: Weak inspiratory effort - Peripheral edema foot Peripheral Edema: bilateral: 1+ - Neurologic Neurologic: Present: CNII-XII intact - Musculoskeletal Musculoskeletal: Present: generalized weakness - Psychiatric Psychiatric: Present: A&O x's 3 - Allied health notes Allied health notes reviewed: nursing - Labs CBC & Chem 7: 11/22/20 06:53 11/22/20 06:53 Labs: Abnormal Lab Results - Last 24 Hours (Table) 11/21/20 11/22/20 11/22/20 Range/Units 13:20 06:53 06:53 Hct 46.9 H (34.0-46.0) % RDW 17.9 H (11.5-15.5) % Sodium 131 L (137-145) mmol/L BUN 45 H (7-17) mg/dL Total Bilirubin 2.2 H (0.2-1.3) mg/dL AST 67 H (14-36) U/L ALT 101 H (4-34) U/L Alkaline Phosphatase 179 H (38-126) U/L Total Protein 5.5 L (6.3-8.2) g/dL Total Protein (PEP) 5.3 L (6.2-8.2) g/dL Albumin 2.9 L (3.5-5.0) g/dL Albumin (PEP) 2.64 L (3.80-4.90) g/dL Okfrz-5-Azxdxsmiu 0.49 H (0.10-0.40) g/dL Beta Globulins 0.49 L (0.60-1.30) g/dL - Imaging and Cardiology Venous US: report reviewed Assessment and Plan (1) Right leg DVT Narrative/Plan: Documented is nonocclusive thrombus, deep femoral and common femoral vein involved. Current Visit: Yes Status: Chronic Priority: Medium Code(s): I82.401 - ACUTE EMBOLISM AND THOMBOS UNSP DEEP VEINS OF R LOW EXTREM SNOMED Code(s): 941070883 (2) Pulmonary embolism Narrative/Plan: Left lower lobe pulmonary embolism Current Visit: Yes Status: Acute Priority: High Code(s): I26.99 - OTHER PULMONARY EMBOLISM WITHOUT ACUTE COR PULMONALE SNOMED Code(s): 69145376 (3) Light chain disease Current Visit: Yes Status: Acute Priority: High Code(s): D89.89 - OTH DISRD INVOLVING THE IMMUNE MECHANISM, NEC SNOMED Code(s): 95423949 (4) Multiple myeloma Current Visit: Yes Status: Acute Priority: High Code(s): C90.00 - MULTIPLE MYELOMA NOT HAVING ACHIEVED REMISSION SNOMED Code(s): 019648375 Plan: Patient is on eliquis for PE and DVT. Patient's myeloma, pending outpatient scenario where patient can receive treatment. Patient will also need lab draws and follow-up appts if she starts treatment. I discussed the case with [employer]. Not certain how easily family is going to be able to get patient around. Will await final plans for discharge and align treatment plans accordingly
--- NOTE | 2020-11-22 14:22 | P.PN ---
Subjective Progress Note Date: 11/22/20 HISTORY OF PRESENT ILLNESS: The patient is a 70-year-old female with multiple complex medical issues, who is currently admitted to the hospital with bilateral pulmonary emboli and congestive heart failure. Echocardiogram reveals restrictive cardiomyopathy with EF at 40-45%, moderate tricuspid regurgitation, and mild pulmonary hypertension. Lower extremity venous Dopplers positive for DVT in right femoral vein, likely being the source of her bilateral pulmonary emboli. 11/21/2020 Patient was interviewed and examined lying comfortably in bed. She continues to have shortness of breath. She states she can rest comfortably at 30. No chest pain or chest pressure. No palpitations or dizziness or lightheadedness. 11/22/2020 Patient examined at the bedside. Patient denies chest pain or pressure. She denies shortness of breath. She is anticoagulated with Eliquis. PHYSICAL EXAM: VITAL SIGNS: Reviewed. GENERAL: Well-developed in no acute distress. NECK: Supple. No JVD or thyromegaly LUNGS: Respirations even and unlabored. Lungs diminished to auscultation bilaterally. HEART: Regular rate and rhythm. S1 and S2 heard. EXTREMITIES: Normal range of motion. No clubbing or cyanosis. Peripheral pulses intact. No lower extremity edema ASSESSMENT: Systolic and diastolic cardiac congestive heart failure, acute on chronic Restrictive cardiomyopathy Chronic pericardial effusion, small and unchanged Bilateral pulmonary emboli Positive for DVT, right common femoral and deep femoral veins Multiple myeloma Hyponatremia, improving Transaminase, improving PLAN: Continue current cardiac medications Change IV lasix to oral Decrease aspirin to 81mg Further recommendations pending patient course Nurse practitioner note has been reviewed by physician. Signing provider agrees with the documented findings, assessment, and plan of care. Objective - Vital Signs Vital signs: Vital Signs Temp 97.7 F 11/22/20 11:59 Pulse 62 11/22/20 13:58 Resp 18 11/22/20 13:58 BP 88/56 11/22/20 11:59 Pulse Ox 97 11/22/20 11:59 Intake & Output 11/21/20 11/22/20 11/22/20 18:59 06:59 18:59 Intake Total 240 240 Output Total 200 800 450 Balance 40 -800 -210 Weight 57 kg Intake: Oral 240 240 Output: Urine 200 800 450 Other: Voiding Method Indwelling Catheter Indwelling Catheter Indwelling Catheter # Voids 1 # Bowel Movements 1 - Labs CBC & Chem 7: 11/22/20 06:53 11/22/20 06:53 Labs: Abnormal Lab Results - Last 24 Hours (Table) 11/21/20 11/22/20 11/22/20 Range/Units 13:20 06:53 06:53 Hct 46.9 H (34.0-46.0) % RDW 17.9 H (11.5-15.5) % Sodium 131 L (137-145) mmol/L BUN 45 H (7-17) mg/dL Total Bilirubin 2.2 H (0.2-1.3) mg/dL AST 67 H (14-36) U/L ALT 101 H (4-34) U/L Alkaline Phosphatase 179 H (38-126) U/L Total Protein 5.5 L (6.3-8.2) g/dL Total Protein (PEP) 5.3 L (6.2-8.2) g/dL Albumin 2.9 L (3.5-5.0) g/dL Albumin (PEP) 2.64 L (3.80-4.90) g/dL Ybety-3-Eeaqukokx 0.49 H (0.10-0.40) g/dL Beta Globulins 0.49 L (0.60-1.30) g/dL
[2020-11-22] MEDS: ACETAMINOPHEN TAB 325 MG TAB PO PRN (15:11)
--- NOTE | 2020-11-22 15:31 | P.PN ---
Subjective Progress Note Date: 11/22/20 History of present illness This 70-year-old pleasant female patient of Dr. Hand, with underlying history of paraesophageal hiatal hernia and GERD, chronic bronchial asthma, mild intermittent hypertension, hyperlipidemia, and recently diagnosed to have amyloidosis and multiple myeloma, through confirmed bone marrow biopsy was supposed to start treatment with Dr. Madrid on 10/11/2020. She was recently hospitalized, 08/25/2020, for shortness of breath, sees Dr. Soria cardiology and was diagnosed to have an STEMI, in, 07/17/2020, in the clinic in [facility]. She underwent a heart cath, the second time and was found to have nonobstructive CAD, diastolic CHF, EF was documented to be normal that time, and was discharged with Cozaar and Lopressor Lasix and potassium. Patient had a prolonged hospitalization from October 09/2021 to October 25/2021 for worsening shortness of breath. She was treated for cardiomyopathy likely secondary to amyloidosis from multiple myeloma, pleural effusions underwent thoracentesis where 700 mL was removed. Pleural fluid was transudative and cytology was nondiagnostic negative fluid culture. Patient had echocardiogram during that admission suggest EF of 45-50% moderate concentric left ventricular hypertrophy with moderate generalized pericardial effusion mild pulmonary hypertension. Patient was treated with dexamethasone for multiple myeloma but could not be started on chemotherapy Remlivid as patient was discharged to subacute rehab . Patient has been home for past 3 weeks where she was noted to be more short of breath with increased weakness. According to the family patient has not been active at home and is progressively getting worse despite getting physical therapy. On assessment in the ER, chest x-ray Mild congestive heart failure with chronic pleural effusion with slightly increased congestion compared to previous x-ray. CT is suggestive of bilateral small lower lobe pulmonary emboli which appeared new compared to on exam but changes of congestive heart failure and pulmonary edema right pleural effusion and moderate cardiomegaly epicardial effusion and ground glass interstitial edema that increased compared to old exam. EKG obtained suggested normal sinus rhythm with sinus arrhythmia. Overnight patient continued to have low blood pressure with a systolic in the 70s and diastolic in the 50s. One and a half liter of IV fluid was given with improvement in pressures. Patient is currently on 4 L of oxygen saturating at 94% labs reviewed suggest a WBC of 10.2 hemoglobin 16.8 hematocrit 50.7 d-dimer 2.3 sodium 128 potassium 4.6 BUN of 43 creatinine 0.6 elevated liver enzymes AST 59 ALT 122 alkaline phosphatase 222 troponin elevation of 0.1880 BNP elevated at 17,000 she was started on heparin infusion for pulmonary embolism. Venous Dopplers and echocardiogram ordered. Cardiothoracic surgery consulted for moderate pericardial effusion chest x-ray Mild congestive heart failure with chronic pleural effusion with slightly increased congestion compared to previous x-ray. CT is suggestive of bilateral small lower lobe pulmonary emboli which appeared new compared to on exam but changes of congestive heart failure and pulmonary edema right pleural effusion and moderate cardiomegaly epicardial effusion and ground glass interstitial edema that increased compared to old exam. EKG obtained suggested normal sinus rhythm with sinus arrhythmia 11/21 patient examined bedside. She is currently on 3 L of oxygen saturating 95% afebrile pulse 87 and respiratory rate 16 blood pressure 90/61. Patient's has improvement in sodium to 130 potassium 4.2 BUN 15 creatinine 0.6 glucose 159 and total bilirubin 2.6 AST 52 ALT 86 alkaline phosphatase 185 patient was noted to have elevated liver enzymes in the previous hospitalization total bilirubins continued to downtrend.ltrasound liver obtained during last hospitalization was found to have acute cholecystitis with that the cholecystic fluid. This Vessel surgery has seen the patient plan to transition patient to oral anticoagulation with no surgical intervention. Patient initiated on Eliquis 10 mg twice a day. Doppler lower extremity suggestive nonocclusive DVT in the right lower extremity. Echocardiogram suggestive of restrictive cardiomyopathy with EF 40- 45%. Probably pressure around 37.4. Moderate pleural effusion noted. Cardi othoracic surgeon plans no intervention. PTOT consult. Patient initiated on Lasix 20 mg IV daily 11/22 patient examined bedside. Patient appears very depressed. States she would like to go home and get her strength back. Patient was seen by physical therapy. Patient is currently a 2 person assist to get her out of the bed to the chair. Patient has progressed poorly in the custodial. [facility]. patient denies any shortness of breath or chest pain. She is stable at 3 L of oxygen. Blood pressure 88/56 pulse 862 respiratory rate 18. Patient received a dose of 20 mg of Lasix this morning and metoprolol 12.5 once a day with the worsening of blood pressure. Will hold metoprolol. Continue Lasix at 20 mg by mouth daily. Discussed plan with family. If patient's blood pressure stabilizes patient will be discharged from the [facility] with follow-up with oncology for possible chemotherapy initiation. GI seen the patient for ultrasound of the liver ordered ROS Constitutional: Denies chills, Denies fever,endorses increasing weaknesss, Denies weight loss Eyes: denies decreased vision, denies diplopia, denies discharge, denies pain Ears: deny: decreased hearing Ears, nose, mouth and throat: Denies dental pain, Denies headache, Denies nasal discharge, Denies nose pain Cardiovascular: Denies chest pain, improved exercise tolerance improved edema, Denies high blood pressure, Denies irregular heart beat, Denies palpitations, Denies paroxysmal nocturnal dyspnea, Denies rapid heart beat, Denies shortness of breath Respiratory Endorses congestion, Denies cough, Denies cough with sputum and dyspnea stable Denies home oxygen, Denies wheezing Gastrointestinal: Denies abdominal pain, Denies change in bowel habits, Denies coffee ground emesis, Denies early satiety, Denies excessive gas, Denies heartburn, Denies hematemesis, Denies hematochezia, Denies loss of appetite, Denies nausea, Denies vomiting Genitourinary: Denies dysuria, Denies flank pain, Denies kidney stones, Denies menorrhagia, Denies urgency, Denies urinary frequency Musculoskeletal Endorses gait dysfunction, Denies limitation of motion, Denies morning stiffness, Denies muscle cramps Integumentary: Denies rash, Denies wounds, Denies brittle nails, Denies change in hair/nails, Denies darkening of skin Neurological: Denies balance difficulties, Denies change in speech, Denies double vision, Denies gait dysfunction, Denies loss of vision, Denies motor disturbance, Denies numbness, Denies paralysis, Denies paresthesias, Denies seizures Psychiatric: Denies anxiety, Denies depression Endocrine: Denies excessive sweating, Denies excessive thirst, Denies high blood sugars, Denies palpitations Hematologic/Lymphatic: Denies easy bruising, Denies lymphadenopathy Physical exam - Constitutional General appearance: cooperative, no acute distress,significantly debilitated - EENT Eyes: anicteric sclerae, PERRLA, normal appearance ENT: hearing grossly normal - Neck Neck: no lymphadenopathy, normal ROM, no other, no rigidity, no stridor, no thyromegaly - Respiratory Respiratory: bilateral:Increased air entry with crackles at the bases, rhonchi no wheezing - Cardiovascular Rhythm: regular Heart sounds: normal: S1, S2 Abnormal Heart Sounds: no systolic murmur, no diastolic murmur, positive for S3 Gallop, no S4 Gallop, no click, no other - Gastrointestinal General gastrointestinal: normal bowel sounds, soft nontender - Integumentary Integumentary: no rash - Neurologic Neurologic:No motor or sensory deficits - Musculoskeletal Musculoskeletal Gait not assessed strength equal bilaterally - Psychiatric Psychiatric: A&O x's 3, appropriate affect Assessment and plan .#1 acute hypoxic respiratory failure secondary to acute on chronic systolic and diastolic congestive heart failure and pulmonary embolism. Heparin drip switch to Eliquis. Venous Dopplers ordered. Echocardiogram with EF 40-45 % with severe concentric left ventricular hypertrophy small likely restrictive cardiomyopathy pericardial effusion mild enlargement of right ventricle mild pulmonary hypertension September 2020 monitor KATARINA's and daily weights Lasix initiated 20 IV daily switch to Lasix 20 mg by mouth daily #2. Acute on chronic systolic and diastolic congestive heart failure likely restrictive cardiomyopathy based on echocardiogram. Patient is unable to tolerate IV Lasix will switch to oral Lasix. Continue I&O's and daily monitoring of weight #3. Bilateral pulmonary embolism and right DVT continue Eliquis at 10 mg twice a day. Patient is immobile and has fatigue. Would recommend PT and OT evaluation. Since patient has not progressed with physical therapy at the custodial will be [facility] with PT 4. Elevated troponins which is chronic Patient had recent heart catheterization in [place] was reported as negative for obstructive disease 07/2020. Cardiology consult and repeat troponins. Echocardiogram conclusion: EF between 40-45%, severe concentric left ventricular atrophy, mild generalized pericardial effusion present, right ventricle is mildly enlarged, ileus mildly dilated, mild pulmonary hypertension. Her ventricular systolic pressure measured by Doppler is 37.4 mmHg. moderate tricuspid regurgitation 5. Chronic pericardial effusion appears small per echocardiogram repeat echocardiogram pending. Cardiothoracic surgery consulted 6. Amyloidosis, suspect nonischemic cardiomyopathy, no treatment initiated yet, oncology consult appreciated 7. Multiple myeloma. Patient completed course of dexamethasone. Plan for [facility] once patient finishes physical therapy but patient continues to stay physically debilitated and needs inpatient or subacute rehab the treatment could not be initiated. 8. Acute Transaminitis with elevated total bili / jaundice possibly secondary to cholecystitis possibly secondary to amyloid as well, GI consult ultrasound are ordered 9. Hyponatremia likely secondary to hypovolemia from congestive heart failure continue to monitor daily CMP 10. Restrictive cardiomyopathy likely secondary to multiple myeloma. Continue diuresis with IV Lasix monitor KATARINA's daily weight 11. Hypertension. Hold Lopressor 25 mg twice daily due to low blood pressure. 12. Hiatal hernia status post robotic-assisted laparoscopic repair of incarcerated paraesophageal hernia in April 2020, stable. 13. Mild intermittent asthma, stable. 14. Gastroesophageal reflux disease and GI prophylaxis. Continue omeprazole 20 g twice daily. 15. Generalized anxiety disorder. Continue Xanax 0.25 mg twice daily. 14. Bilateral Lower extremity weakness. Due to generalized debility CAT scan of the lumbar spine done in the last was negative for compression spine. 16 small pleural effusion status post thoracentesis 700 mL the previous admission. Pulmonary recommendation appreciated 17. Hyperlipidemia. Hold Lipitor 20 mg daily due to transaminitis. 18. DVT right lower extremity nonocclusive on Eliquis 10 mg twice a day 19. GI prophylaxis. Protonix 40 mg CODE STATUS: CODE STATUS discussed with patient patient would like to be a no code and does not require intubation but nurse updated later the family decided to keep patient for code Discharge plan: PT OT consult for possible rehab placement. Spoke to the power of assistant attorney general of the patient the would like the patient go to [facility] so that she can be treated for her cancer Objective - Vital Signs Vital signs: Vital Signs Temp 97.7 F 11/22/20 11:59 Pulse 62 11/22/20 13:58 Resp 18 11/22/20 13:58 BP 88/56 11/22/20 11:59 Pulse Ox 97 11/22/20 11:59 Intake & Output 11/21/20 11/22/20 11/22/20 18:59 06:59 18:59 Intake Total 240 240 Output Total 200 800 450 Balance 40 -800 -210 Weight 57 kg Intake: Oral 240 240 Output: Urine 200 800 450 Other: Voiding Method Indwelling Catheter Indwelling Catheter Indwelling Catheter # Voids 1 # Bowel Movements 1 - Labs CBC & Chem 7: 11/22/20 06:53 11/22/20 06:53 Labs: Abnormal Lab Results - Last 24 Hours (Table) 11/21/20 11/22/20 11/22/20 Range/Units 13:20 06:53 06:53 Hct 46.9 H (34.0-46.0) % RDW 17.9 H (11.5-15.5) % Sodium 131 L (137-145) mmol/L BUN 45 H (7-17) mg/dL Total Bilirubin 2.2 H (0.2-1.3) mg/dL AST 67 H (14-36) U/L ALT 101 H (4-34) U/L Alkaline Phosphatase 179 H (38-126) U/L Total Protein 5.5 L (6.3-8.2) g/dL Total Protein (PEP) 5.3 L (6.2-8.2) g/dL Albumin 2.9 L (3.5-5.0) g/dL Albumin (PEP) 2.64 L (3.80-4.90) g/dL Pqmlk-3-Ksdrhxyad 0.49 H (0.10-0.40) g/dL Beta Globulins 0.49 L (0.60-1.30) g/dL
--- NOTE | 2020-11-22 15:53 | P.CONS ---
History of Present Illness - Reason for Consult Consult date: 11/22/20 Transaminitis Requesting physician: Levar Alcazar - Chief Complaint Shortness of breath - History of Present Illness This is a pleasant 70-year-old white female who was admitted to the hospital 3 days ago with a past medical history for hypertension, hyperlipidemia, myoca rdial infarction, asthma, right-sided pleural effusion status post thoracentesis in September 2020, dependent on home oxygen, congestive heart failure and recent diagnosis of multiple myeloma in August of this year who presented with complaints of shortness of breath. The patient had a CT angiogram of the chest which was positive for bilateral pulmonary embolism and is currently on Eliquis. She was noted to have elevated LFTs and therefore gastroenterology was consulted. The patient is denying any abdominal pain, nausea, or vomiting. Denies any previous history of alcohol abuse, no new medications, no family history that she is aware of of liver disease and denies any previous history of liver disease. Patient states she does follow with Dr. Reyna and has had elevation in her liver enzymes however has had no further workup. Reviewing her chart it looks like she's had elevation in her LFTs since July of this year. The patient has been following with Dr. madrid for her multiple myeloma and possible amyloidosis and was recommended to begin RVD regimen, she was supposed to start on 10/11/2020 however was admitted to the hospital with recurrent CHF. She was given high- dose bolus of Decadron, the patient was then discharged to ECF and was unable to undergo chemotherapy or Revlimid all in the ECF and was continued on high-dose steroids Decadron 40 mg. today's labs show WBC 9.6, hemoglobin 15, hematocrit 46, platelet count 226,000, total bilirubin 2.2, alkaline phosphatase 179, AST 67, ALT 101. INR on admission was 1.0. Patient had a ultrasound of the liver on 10/13/2020 showing mild ascites, thickened gallbladder, pericholecystic fluid, correlate for cholecystitis. Review of Systems REVIEW OF SYSTEMS: CARDIOPULMONARY: No chest pain. Shortness of breath. Gastrointestinal: No abdominal pain. No nausea or vomiting. No hematemesis, coffee-ground emesis. No rectal bleeding, or melena. GENITOURINARY: No dysuria or hematuria. MUSCULOSKELETAL: Reports normal range of motion., Joint pain. SKIN: No rashes. No jaundice. ENDOCRINE: No chills, fevers. No polydipsia or polyuria. PSYCHIATRIC: Unremarkable. NEUROLOGY: No change in mental status. Denies dizziness, headache. ENT: Vision unremarkable. CONSTITUTIONAL: Weight loss of 20-30 pounds since hernia surgery in April 2020 No fever, chills, night sweats. Past Medical History Past Medical History: Asthma, Chest Pain / Angina, GERD/Reflux, Hyperlipidemia, Hypertension, Myocardial Infarction ([place]) Additional Past Medical History / Comment(s): Hiatal Hernia, hx 2 ulcers in stomach; Bursitis both knees. Hx pancreatitis, SOB w/exertion due to hernia, history of pericardial effusion, right pleural effusion, status post right thoracentesis Last Myocardial Infarction Date:: 07/2020 History of Any Multi-Drug Resistant Organisms: None Reported Past Surgical History: Back Surgery, Heart Catheterization, Hysterectomy, Or thopedic Surgery, Tonsillectomy Additional Past Surgical History / Comment(s): Back surgery with hardware, L carpal tunnel, L foot surgery, Past Anesthesia/Blood Transfusion Reactions: Previous Problems w/ Anesthesia, Motion Sickness, Postoperative Nausea & Vomiting (PONV) Additional Past Anesthesia/Blood Transfusion Reaction / Comm: was told stopped breathing during EGD Date of Last Stent Placement:: unknown Past Psychological History: Depression Smoking Status: Never smoker Past Alcohol Use History: Rare Past Drug Use History: None Reported - Past Family History Mother Family Medical History: No Reported History, Asthma, Diabetes Mellitus Father Family Medical History: No Reported History Additional Family Medical History / Comment(s): Father lived to be 90yrs. Sister(s) Family Medical History: No Reported History Daughter(s) Family Medical History: No Reported History Medications and Allergies Home Medications Medication Instructions Recorded Confirmed Type Omeprazole 20 mg PO BID 08/24/20 11/19/20 History Multivitamins, Thera [Multivitamin 1 tab PO DAILY 10/07/20 11/19/20 History (formulary)] Sertraline [Zoloft] 50 mg PO DAILY 10/07/20 11/19/20 History Spironolactone [Aldactone] 25 mg PO BID 10/07/20 11/19/20 History ALPRAZolam [Xanax] 0.25 mg PO HS #3 tab 10/18/20 11/19/20 Rx Furosemide [Lasix] 40 mg PO DAILY #30 tablet 10/18/20 11/19/20 Rx Metoprolol Tartrate [Lopressor] 12.5 mg PO DAILY tab 10/18/20 11/19/20 Rx Acetaminophen [Tylenol 8 Hour] 650 mg PO Q4H PRN 11/19/20 11/19/20 History Allergies Allergy/AdvReac Type Severity Reaction Status Date / Time No Known Allergies Allergy Verified 11/19/20 21:34 Physical Exam Vitals: Vital Signs Temp Pulse Pulse Resp BP Pulse Ox 11/22/20 07:52 73 18 11/22/20 07:28 98.2 F 73 18 98/61 94 L 11/22/20 04:00 97.6 F 80 16 102/69 95 11/22/20 00:00 97.8 F 83 18 97/69 95 11/21/20 20:00 97.8 F 85 18 95/68 96 11/21/20 19:17 85 11/21/20 19:06 82 11/21/20 15:37 97.9 F 88 18 98/64 95 11/21/20 13:37 82 18 11/21/20 13:03 85 11/21/20 12:54 82 11/21/20 11:38 97.4 F L 82 18 92/61 96 Intake and Output 11/21/20 11/22/20 11/22/20 22:59 06:59 14:59 Intake Total 120 240 Output Total 300 500 Balance -180 -500 240 Intake: Oral 120 240 Output: Urine 300 500 Other: Voiding Method Indwelling Catheter Indwelling Catheter Indwelling Catheter # Bowel Movements 1 Weight 57 kg General appearance: The patient is alert, oriented, appears in no acute distress. HET: Head is normocephalic and atraumatic. Conjunctiva pink. Sclera anicteric. Neck: Supple without lymphadenopathy. Trachea midline. Heart: S1 S2. Regular rate and rhythm. Lungs: Clear to auscultation. Abdomen: Soft, nontender, nondistended with bowel sounds. No guarding or rigidity. Skin: No rashes. No jaundice. Extremities: Normal skin color and turgor. No pedal edema. Neurological: No focal deficits. Alert and oriented 3.. Results CBC & Chem 7: 11/22/20 06:53 11/22/20 06:53 Labs: Abnormal Lab Results - Last 24 Hours (Table) 11/21/20 11/22/20 11/22/20 Range/Units 13:20 06:53 06:53 Hct 46.9 H (34.0-46.0) % RDW 17.9 H (11.5-15.5) % Sodium 131 L (137-145) mmol/L BUN 45 H (7-17) mg/dL Total Bilirubin 2.2 H (0.2-1.3) mg/dL AST 67 H (14-36) U/L ALT 101 H (4-34) U/L Alkaline Phosphatase 179 H (38-126) U/L Total Protein 5.5 L (6.3-8.2) g/dL Total Protein (PEP) 5.3 L (6.2-8.2) g/dL Albumin 2.9 L (3.5-5.0) g/dL Assessment and Plan (1) Transaminitis Narrative/Plan: 70-year-old female who presented to the emergency department with complaints of shortness of breath was found to have acute pulmonary embolism and started on anticoagulation. Patient has multiple comorbidities including recent diagnosis of multiple myeloma undergoing treatment with Dr. Madrid. She was noted to have elevation in her liver enzymes and gastroenterology was consulted. Patient has had elevated LFTs since July of this year. She denies any previous alcohol history, family history of liver disease, new medications, or known liver disease. She denies any previous history of hepatitis. She had a liver ultrasound done during her last admission in September of this year that showed mild ascites, thickened gallbladder wall at 0.45 cm. Some pericholecystic fluid present. Correlate for cholecystitis. Liver appeared to be coarse in echotexture. Current LFTs total bilirubin 2.2, alkaline phosphatase 179, AST 67, ALT 101. Unknown etiology at this time. Will order hepatitis panel, KAIA, AMA, and SMA for further evaluation. Current Visit: No Status: Acute Priority: High Code(s): R74.01 - ELEVATION OF LEVELS OF LIVER TRANSAMINASE LEVELS SNOMED Code(s): 678713728 (2) Multiple myeloma Current Visit: Yes Status: Acute Priority: High Code(s): C90.00 - MULTIPLE MYELOMA NOT HAVING ACHIEVED REMISSION SNOMED Code(s): 547402993 (3) Pulmonary embolism Current Visit: Yes Status: Acute Priority: High Code(s): I26.99 - OTHER PULMONARY EMBOLISM WITHOUT ACUTE COR PULMONALE SNOMED Code(s): 52435740 Plan: 1. Continue symptomatic and supportive care 2. Repeat CMP daily 3. Repeat liver ultrasound ordered 4. AMA, KAIA, SMA ordered 5. Avoid hepatotoxic medications Thank you for this consultation, we will continue to follow. Dr. Jf Sandhu I agree with the dictator's note, documented as a scribe by Suzy Smith.
--- NOTE | 2020-11-22 15:55 | US ---
EXAMINATION TYPE: US abdomen complete DATE OF EXAM: 11/22/2020 COMPARISON: US liver, CT angio ches CLINICAL HISTORY: elevated LFTS. Diagnosis of multiple myeloma and Amyloidosis; PE, CHF EXAM MEASUREMENTS: Liver Length: 11.9 cm Gallbladder Wall: 0.1 cm CBD: 0.4 cm Spleen: 8.6 cm Right Kidney: 9.2 x 5.8 x 4.3 cm Left Kidney: 10.0 x 4.9 x 4.8 cm Pancreas: hyperechoic; prominent pancreatic duct = 3.3mm Liver: no masses seen Gallbladder: serpiginous appearance to gallbladder; small amount of echoes seen in neck and may be s mall amount of sludge but patient has been in hospital x 4 days. Evidence for sonographic Edwards's sign: no CBD: wnl Spleen: wnl Right Kidney: lower pole hyperechoic parallel echoes noted suggesting vascular wall calcifications; separate hyperechoic focus may be very small renal calcification Left Kidney: Obscured by overlying bowel gas ; limitedly seen due to patient's limited range of supriya on for optimal scan window. Upper IVC: wnl Abd Aorta: wnl Small amount of ascites seen RUQ. Right Pleural Effusion seen on images # [id number] through #[id number], #[id number], etc. IMPRESSION: 1. Findings most suggestive of gallbladder sludge. 2. Small right pleural effusion. 3. Small amount of ascites. 4. nonobstructing right renal calculus.
[2020-11-22 17:55] LABS: Hepatitis A Antibody IgM Non-Reactive (Non-Reactive); Hepatitis B Core IgM Non-Reactive (Non-Reactive); Hepatitis B Surface Antigen Non-Reactive (Non-Reactive); Hepatitis C IgG Antibody Non-Reactive (Non-Reactive)
[2020-11-22] MEDS: ALPRAZolam 0.25 MG TAB PO SCH (21:11)
[2020-11-23] MEDS: PANTOPRAZOLE 40 MG TABLET PO SCH (06:25)
[2020-11-23] MEDS: IPRATROPIUM-ALBUTEROL 3 ML NEB INHALATION SCH ×3 (07:55→20:11)
[2020-11-23] MEDS: FUROSEMIDE 20 MG TAB PO SCH (09:00)
[2020-11-23] MEDS: APIXABAN 5 MG TAB PO SCH ×2 (09:00→20:00)
[2020-11-23] MEDS: SERTRALINE 50 MG TAB PO SCH (09:00)
[2020-11-23] MEDS: ASPIRIN 81 MG PO SCH (09:00)
[2020-11-23 09:12] LABS: ALT 97 U/L (4-34); AST 62 U/L (14-36); African American GFR (CKD) >90 (>60 ml/min/1.73 sqM); Albumin 2.9 g/dL (3.5-5.0); Alkaline Phosphatase 194 U/L (38-126); Anion Gap 4 mmol/L; Blood Urea Nitrogen 42 mg/dL (7-17); Calcium 9.4 mg/dL (8.4-10.2); Carbon Dioxide 31 mmol/L (22-30); Chloride 96 mmol/L (98-107); Glucose 98 mg/dL (74-99); Non-African American GFR(CKD) 86 (>60 ml/min/1.73 sqM); Potassium 4.8 mmol/L (3.5-5.1); Sodium 131 mmol/L (137-145); Total Bilirubin 2.1 mg/dL (0.2-1.3); Total Protein 5.5 g/dL (6.3-8.2)
[2020-11-23 13:07] LABS: Free Kappa Lt Chain Qnt, Serum 2.13 mg/dL (0.33-1.94)
--- NOTE | 2020-11-23 13:28 | P.PN ---
Subjective Progress Note Date: 11/23/20 Principal diagnosis: Transaminitis 70-year-old female who presented to the emergency department with complaints of shortness of breath and was found to have bilateral pulmonary embolism, currently on Eliquis. The patient has multiple comorbidities. She was recently diagnosed with multiple myeloma, chemotherapy has not been started she was in and out of extended care facility and receiving high doses of Decadron. She had pleural effusions and recently underwent thoracentesis on last admission. Gastroenterology was consult for elevation and her LFTs. Patient denies any history of liver disease, no alcohol use, family history of liver disease, or new medications other than the Decadron. On her last admission her abdominal ultrasound did show possible cholecystitis. Repeat abdominal ultrasound was ordered yesterday showing gallbladder sludge, small right pleural effusion, small amount of ascites, nonobstructing right renal calculus, CBD is within normal limits.. The patient denies any previous history of gallbladder disease. She is denying any abdominal pain, nausea, or vomiting. Patient likely has a component of underlying liver disease. Objective - Vital Signs Vital signs: Vital Signs Temp 97.8 F 11/23/20 04:00 Pulse 78 11/23/20 04:00 Resp 18 11/23/20 04:00 BP 101/67 11/23/20 04:00 Pulse Ox 96 11/23/20 04:00 Intake & Output 11/22/20 11/23/20 11/23/20 18:59 06:59 18:59 Intake Total 480 180 Output Total 450 475 Balance 30 -475 180 Weight 57 kg 58.5 kg Intake: Oral 480 180 Output: Urine 450 475 Other: Voiding Method Indwelling Catheter Indwelling Catheter # Bowel Movements 1 - Exam General appearance: The patient is alert, oriented, appears in no acute distress. HET: Head is normocephalic and atraumatic. Conjunctiva pink. Sclera anicteric. Neck: Supple without lymphadenopathy. Abdomen: Soft, right upper quadrant tenderness,, nondistended with bowel sounds. No guarding or rigidity. Extremities: Normal skin color and turgor. No pedal edema Skin: No rashes, no jaundice Neurological: No focal deficits. Alert and oriented 3. - Labs CBC & Chem 7: 11/22/20 06:53 11/23/20 08:27 Labs: Abnormal Lab Results - Last 24 Hours (Table) 11/21/20 11/23/20 Range/Units 13:20 08:27 Sodium 131 L (137-145) mmol/L Chloride 96 L (98-107) mmol/L Carbon Dioxide 31 H (22-30) mmol/L BUN 42 H (7-17) mg/dL Total Bilirubin 2.1 H (0.2-1.3) mg/dL AST 62 H (14-36) U/L ALT 97 H (4-34) U/L Alkaline Phosphatase 194 H (38-126) U/L Total Protein 5.5 L (6.3-8.2) g/dL Albumin 2.9 L (3.5-5.0) g/dL Albumin (PEP) 2.64 L (3.80-4.90) g/dL [id number] 0.49 H (0.10-0.40) g/dL Beta Globulins 0.49 L (0.60-1.30) g/dL Assessment and Plan (1) Transaminitis Narrative/Plan: 70-year-old female who presented to the emergency department with complaints of shortness of breath was found to have acute pulmonary embolism and started on anticoagulation. Patient has multiple comorbidities including recent diagnosis of multiple myeloma undergoing treatment with Dr. Madrid. She was noted to have elevation in her liver enzymes and gastroenterology was consulted. Patient has had elevated LFTs since July of this year. She denies any previous alcohol history, family history of liver disease, new medications, or known liver disease. She denies any previous history of hepatitis. She had a liver ultrasound done during her last admission in September of this year that showed mild ascites, thickened gallbladder wall at 0.45 cm. Some pericholecystic fluid present. Correlate for cholecystitis. Liver appeared to be coarse in echotexture. Current LFTs total bilirubin 2.2, alkaline phosphatase 179, AST 67, ALT 101. Unknown etiology at this time. Will order hepatitis panel, KAIA, AMA, and SMA for further evaluation. Abdominal ultrasound with findings suggestive of gallbladder sludge, small right pleural effusion, small amount of ascites, nonobstructing right renal calculus, CBD within normal limits. Patient likely has underlying liver disease. Awaiting liver serology results. Current Visit: No Status: Acute Priority: High Code(s): R74.01 - ELEVATION OF LEVELS OF LIVER TRANSAMINASE LEVELS SNOMED Code(s): 221993692 (2) Multiple myeloma Current Visit: Yes Status: Acute Priority: High Code(s): C90.00 - MULTIPLE MYELOMA NOT HAVING ACHIEVED REMISSION SNOMED Code(s): 309114989 (3) Pulmonary embolism Current Visit: Yes Status: Acute Priority: High Code(s): I26.99 - OTHER PULMONARY EMBOLISM WITHOUT ACUTE COR PULMONALE SNOMED Code(s): 70610332 Plan: 1. Continue symptomatic and supportive care 2. Repeat CMP daily 3. Abdominal ultrasound ordered and reviewed 4. AMA, KAIA, SMA ordered, pending results 5. Avoid hepatotoxic medications 6. Gen. surgery consted Thank you for this consultation, we will continue to follow. Dr. Jf Sandhu I agree with the dictator's note, documented as a scribe by Suzy Smith.
--- NOTE | 2020-11-23 14:32 | P.PN ---
Subjective Progress Note Date: 11/23/20 HISTORY OF PRESENT ILLNESS: The patient is a 70-year-old female with multiple complex medical issues, who is currently admitted to the hospital with bilateral pulmonary emboli and congestive heart failure. Echocardiogram reveals restrictive cardiomyopathy with EF at 40-45%, moderate tricuspid regurgitation, and mild pulmonary hypertension. Lower extremity venous Dopplers positive for DVT in right femoral vein, likely being the source of her bilateral pulmonary emboli. 11/21/2020 Patient was interviewed and examined lying comfortably in bed. She continues to have shortness of breath. She states she can rest comfortably at 30. No chest pain or chest pressure. No palpitations or dizziness or lightheadedness. 11/22/2020 Patient examined at the bedside. Patient denies chest pain or pressure. She denies shortness of breath. She is anticoagulated with Eliquis. 11/23/2020 Patient examined this morning at the bedside. Patient denies chest pain or pressure. She denies shortness of breath. Vital signs are stable. She is anticoagulated with Eliquis. PHYSICAL EXAM: VITAL SIGNS: Reviewed. GENERAL: Well-developed in no acute distress. NECK: Supple. No JVD or thyromegaly LUNGS: Respirations even and unlabored. Lungs diminished to auscultation bilaterally. HEART: Regular rate and rhythm. S1 and S2 heard. EXTREMITIES: Normal range of motion. No clubbing or cyanosis. Peripheral pulses intact. No lower extremity edema ASSESSMENT: Systolic and diastolic cardiac congestive heart failure, acute on chronic Restrictive cardiomyopathy Chronic pericardial effusion, small and unchanged Bilateral pulmonary emboli Positive for DVT, right common femoral and deep femoral veins Multiple myeloma Hyponatremia, improving Transaminase, improving PLAN: Continue current cardiac medications Patient is stable from a cardiac perspective There are no further inpatient admonitions from a cardiac standpoint We will sign off her incision consult if needed. Nurse practitioner note has been reviewed by physician. Signing provider agrees with the documented findings, assessment, and plan of care. Objective - Vital Signs Vital signs: Vital Signs Temp 97.4 F L 11/23/20 12:00 Pulse 86 11/23/20 12:00 Resp 18 11/23/20 12:00 BP 98/66 11/23/20 12:00 Pulse Ox 95 11/23/20 12:00 Intake & Output 11/22/20 11/23/20 11/23/20 18:59 06:59 18:59 Intake Total 480 360 Output Total 450 475 200 Balance 30 -475 160 Weight 57 kg 58.5 kg Intake: Oral 480 360 Output: Urine 450 475 200 Other: Voiding Method Indwelling Catheter Indwelling Catheter # Bowel Movements 1 1 - Labs CBC & Chem 7: 11/22/20 06:53 11/23/20 08:27 Labs: Abnormal Lab Results - Last 24 Hours (Table) 11/21/20 11/23/20 Range/Units 13:20 08:27 Sodium 131 L (137-145) mmol/L Chloride 96 L (98-107) mmol/L Carbon Dioxide 31 H (22-30) mmol/L BUN 42 H (7-17) mg/dL Total Bilirubin 2.1 H (0.2-1.3) mg/dL AST 62 H (14-36) U/L ALT 97 H (4-34) U/L Alkaline Phosphatase 194 H (38-126) U/L Total Protein 5.5 L (6.3-8.2) g/dL Albumin 2.9 L (3.5-5.0) g/dL Free Kill[place] LC, Quant 2.13 H (0.33-1.94) mg/dL Free Lambda LC, Quant 20.04 H (0.57-2.63) mg/dL
--- NOTE | 2020-11-23 15:25 | P.PN ---
Subjective Progress Note Date: 11/23/20 History of present illness This 70-year-old pleasant female patient of Dr. Hand, with underlying history of paraesophageal hiatal hernia and GERD, chronic bronchial asthma, mild intermittent hypertension, hyperlipidemia, and recently diagnosed to have amyloidosis and multiple myeloma, through confirmed bone marrow biopsy was supposed to start treatment with Dr. Madrid on 10/11/2020. She was recently hospitalized, 08/25/2020, for shortness of breath, sees Dr. Soria cardiology and was diagnosed to have an STEMI, in, 07/17/2020, in the clinic in [facility]. She underwent a heart cath, the second time and was found to have nonobstructive CAD, diastolic CHF, EF was documented to be normal that time, and was discharged with Cozaar and Lopressor Lasix and potassium. Patient had a prolonged hospitalization from October 09/2021 to October 25/2021 for worsening shortness of breath. She was treated for cardiomyopathy likely secondary to amyloidosis from multiple myeloma, pleural effusions underwent thoracentesis where 700 mL was removed. Pleural fluid was transudative and cytology was nondiagnostic negative fluid culture. Patient had echocardiogram during that admission suggest EF of 45-50% moderate concentric left ventricular hypertrophy with moderate generalized pericardial effusion mild pulmonary hypertension. Patient was treated with dexamethasone for multiple myeloma but could not be started on chemotherapy Remlivid as patient was discharged to subacute rehab . Patient has been home for past 3 weeks where she was noted to be more short of breath with increased weakness. According to the family patient has not been active at home and is progressively getting worse despite getting physical therapy. On assessment in the ER, chest x-ray Mild congestive heart failure with chronic pleural effusion with slightly increased congestion compared to previous x-ray. CT is suggestive of bilateral small lower lobe pulmonary emboli which appeared new compared to on exam but changes of congestive heart failure and pulmonary edema right pleural effusion and moderate cardiomegaly epicardial effusion and ground glass interstitial edema that increased compared to old exam. EKG obtained suggested normal sinus rhythm with sinus arrhythmia. Overnight patient continued to have low blood pressure with a systolic in the 70s and diastolic in the 50s. One and a half liter of IV fluid was given with improvement in pressures. Patient is currently on 4 L of oxygen saturating at 94% labs reviewed suggest a WBC of 10.2 hemoglobin 16.8 hematocrit 50.7 d-dimer 2.3 sodium 128 potassium 4.6 BUN of 43 creatinine 0.6 elevated liver enzymes AST 59 ALT 122 alkaline phosphatase 222 troponin elevation of 0.1880 BNP elevated at 17,000 she was started on heparin infusion for pulmonary embolism. Venous Dopplers and echocardiogram ordered. Cardiothoracic surgery consulted for moderate pericardial effusion chest x-ray Mild congestive heart failure with chronic pleural effusion with slightly increased congestion compared to previous x-ray. CT is suggestive of bilateral small lower lobe pulmonary emboli which appeared new compared to on exam but changes of congestive heart failure and pulmonary edema right pleural effusion and moderate cardiomegaly epicardial effusion and ground glass interstitial edema that increased compared to old exam. EKG obtained suggested normal sinus rhythm with sinus arrhythmia 11/21 patient examined bedside. She is currently on 3 L of oxygen saturating 95% afebrile pulse 87 and respiratory rate 16 blood pressure 90/61. Patient's has improvement in sodium to 130 potassium 4.2 BUN 15 creatinine 0.6 glucose 159 and total bilirubin 2.6 AST 52 ALT 86 alkaline phosphatase 185 patient was noted to have elevated liver enzymes in the previous hospitalization total bilirubins continued to downtrend.ltrasound liver obtained during last hospitalization was found to have acute cholecystitis with that the cholecystic fluid. This Vessel surgery has seen the patient plan to transition patient to oral anticoagulation with no surgical intervention. Patient initiated on Eliquis 10 mg twice a day. Doppler lower extremity suggestive nonocclusive DVT in the right lower extremity. Echocardiogram suggestive of restrictive cardiomyopathy with EF 40- 45%. Probably pressure around 37.4. Moderate pleural effusion noted. Cardi othoracic surgeon plans no intervention. PTOT consult. Patient initiated on Lasix 20 mg IV daily 11/22 patient examined bedside. Patient appears very depressed. States she would like to go home and get her strength back. Patient was seen by physical therapy. Patient is currently a 2 person assist to get her out of the bed to the chair. Patient has progressed poorly in the long-term. [facility]. patient denies any shortness of breath or chest pain. She is stable at 3 L of oxygen. Blood pressure 88/56 pulse 862 respiratory rate 18. Patient received a dose of 20 mg of Lasix this morning and metoprolol 12.5 once a day with the worsening of blood pressure. Will hold metoprolol. Continue Lasix at 20 mg by mouth daily. Discussed plan with family. If patient's blood pressure stabilizes patient will be discharged from the [facility] with follow-up with oncology for possible chemotherapy initiation. GI seen the patient for ultrasound of the liver ordered 11/23 patient examined bedside. She is extremely weak and lethargic. Patient was seen best physical therapy were recommended going back to subacute rehab but patient is too weak to make any progression. Patient was at [facility] and was discharged because she was not making any progress. Family is interested in an assisted living facility with 24-hour care hired by the family. Patient answers questions appropriately denies any dizziness or lightheadedness. Denies any chest pain or breathing difficulty. Vitals were reviewed patient's afebrile pulse 86 respiratory rate 18 blood pressure 98/66 oxygen saturation 95 on 3 L. Ultrasound of her suggestive of gallbladder sludge with possibility of cholecystitis. The surgery team consulted. Patient had hiatal hernia repair by Dr. Sharp in Apr 2020. Surgery team will get back with the family if surgery could be performed. We will discuss patient's prognosis with Dr. Madrid to see if patient can tolerate chemotherapy. Detailed discussion was made with the power of county attorney would do understand that if no progress is made and if patient cannot tolerate chemotherapy, and they are willing to switch patient to palliative care. ROS Constitutional: Denies chills, Denies fever,endorses increasing weaknesss, Denies weight loss Eyes: denies decreased vision, denies diplopia, denies discharge, denies pain Ears: deny: decreased hearing Ears, nose, mouth and throat: Denies dental pain, Denies headache, Denies nasal discharge, Denies nose pain Cardiovascular: Denies chest pain, improved exercise tolerance, LE edema, Denies high blood pressure, Denies irregular heart beat, Denies palpitations, Denies paroxysmal nocturnal dyspnea, Denies rapid heart beat, Denies shortness of breath Respiratory Denies cough, Denies cough with sputum and dyspnea stable Denies home oxygen, Denies wheezing Gastrointestinal: Denies abdominal pain, Denies change in bowel habits, Denies coffee ground emesis, Denies early satiety, Denies excessive gas, Denies heartburn, Denies hematemesis, Denies hematochezia, Denies loss of appetite, Denies nausea, Denies vomiting Genitourinary: Denies dysuria, Denies flank pain, Denies kidney stones, Denies menorrhagia, Denies urgency, Denies urinary frequency Musculoskeletal Endorses gait dysfunction, Denies limitation of motion, Denies morning stiffness, Denies muscle cramps Integumentary: Denies rash, Denies wounds, Denies brittle nails, Denies change in hair/nails, Denies darkening of skin Neurological: Denies balance difficulties, Denies change in speech, Denies double vision, Denies gait dysfunction, Denies loss of vision, Denies motor disturbance, Denies numbness, Denies paralysis, Denies paresthesias, Denies seizures Psychiatric: Denies anxiety, Denies depression Endocrine: Denies excessive sweating, Denies excessive thirst, Denies high blood sugars, Denies palpitations Hematologic/Lymphatic: Denies easy bruising, Denies lymphadenopathy Physical exam - Constitutional General appearance: cooperative, no acute distress,significantly debilitated - EENT Eyes: anicteric sclerae, PERRLA, normal appearance ENT: hearing grossly normal - Neck Neck: no lymphadenopathy, normal ROM, no other, no rigidity, no stridor, no thyromegaly - Respiratory Respiratory: bilateral:Increased air entry with crackles at the bases, rhonchi no wheezing - Cardiovascular Rhythm: regular Heart sounds: normal: S1, S2 Abnormal Heart Sounds: no systolic murmur, no diastolic murmur, positive for S3 Gallop, no S4 Gallop, no click, 2+ pitting edema oth - Gastrointestinal General gastrointestinal: normal bowel sounds, soft tender rigth upper quad - Integumentary Integumentary: no rash - Neurologic Neurologic:No motor or sensory deficits - Musculoskeletal Musculoskeletal Gait not assessed strength equal bilaterally - Psychiatric Psychiatric: A&O x's 3, appropriate affect Assessment and plan .#1 acute hypoxic respiratory failure secondary to acute on chronic systolic and diastolic congestive heart failure and pulmonary embolism. Heparin drip switch to Eliquis. Venous Dopplers ordered. Echocardiogram with EF 40-45 % with severe concentric left ventricular hypertrophy small likely restrictive cardiomyopathy pericardial effusion mild enlargement of right ventricle mild pulmonary hypertension September 2020 monitor KATARINA's and daily weights Lasix initiated 20 IV daily on po Lasix 20 mg by mouth daily #2. Acute on chronic systolic and diastolic congestive heart failure likely restrictive cardiomyopathy based on echocardiogram. Patient is able to tolerate oral Lasix. Continue I&O's and daily monitoring of weight #3. Bilateral pulmonary embolism and right DVT continue Eliquis at 10 mg twice a day. Patient is immobile and has fatigue. . Since patient has not progressed with physical therapy at the long-term will be discharged to [facility] facility with PT 4. Elevated troponins which is chronic Patient had recent heart catheterization in [place] was reported as negative for obstructive disease 07/2020. Cardiology consult and repeat troponins. Echocardiogram conclusion: EF between 40-45%, severe concentric left ventricular atrophy, mild generalized pericardial effusion present, right ventricle is mildly enlarged, ileus mildly dilated, mild pulmonary hypertension. Her ventricular systolic pressure measured by Doppler is 37.4 mmHg. moderate tricuspid regurgitation 5. Chronic pericardial effusion appears small per echocardiogram repeat echocardiogram pending. Cardiothoracic surgery consulted 6. Amyloidosis, suspect nonischemic cardiomyopathy, no treatment initiated yet, oncology consult appreciated 7. Multiple myeloma. Patient completed course of dexamethasone. Plan for [facility] once patient finishes physical therapy but patient continues to stay physically debilitated and needs inpatient or subacute rehab the treatment could not be initiated. 8. Acute Transaminitis with elevated total bili / jaundice possibly secondary to cholecystitis possibly secondary to amyloid as well, GI liver ultrasound suggestive of acute cholecystitis. Surgery team consulted 9. Hyponatremia likely secondary to hypovolemia from congestive heart failure continue to monitor daily CMP 10. Restrictive cardiomyopathy likely secondary to multiple myeloma. Continue diuresis with po Lasix monitor KATARINA's daily weight 11. Hypertension. Hold Lopressor 25 mg twice daily due to low blood pressure. 12. Hiatal hernia status post robotic-assisted laparoscopic repair of incarc erated paraesophageal hernia in April 2020, stable. 13. Mild intermittent asthma, stable. 14. Gastroesophageal reflux disease and GI prophylaxis. Continue omeprazole 20 g twice daily. 15. Generalized anxiety disorder. Continue Xanax 0.25 mg twice daily. 14. Bilateral Lower extremity weakness. Due to generalized debility CAT scan of the lumbar spine done in the last was negative for compression spine. 16 small pleural effusion status post thoracentesis 700 mL the previous admission. Pulmonary recommendation appreciated 17. Hyperlipidemia. Hold Lipitor 20 mg daily due to transaminitis. 18. DVT right lower extremity nonocclusive on Eliquis 10 mg twice a day 19. GI prophylaxis. Protonix 40 mg 20 severe disability. PTOT evaluation suggest patient would need rehab facili ty. Patient appears significantly weak unable to make any progress with physical therapy. Family preference to discharge to [facility] with PT OT. CODE STATUS: CODE STATUS discussed with patient patient would like to be a no code and does not require intubation but nurse updated later the family decided to keep patient for code Discharge plan: PT OT consult for possible rehab placement. Spoke to the power of county attorney of the patient the would like the patient go to [facility] so that she can be treated for her cancer and since patient has not made any progress with rehab. Discussed with family Sarika power of county attorney possibility of palliative care if patient is unable to tolerate chemotherapy. Family willing to switch to palliative care if patient is a poor prognosis and unable to tolerate chemotherapy Objective - Vital Signs Vital signs: Vital Signs Temp 97.4 F L 11/23/20 12:00 Pulse 86 11/23/20 12:00 Resp 18 11/23/20 12:00 BP 98/66 11/23/20 12:00 Pulse Ox 95 11/23/20 12:00 Intake & Output 11/22/20 11/23/20 11/23/20 18:59 06:59 18:59 Intake Total 480 360 Output Total 450 475 200 Balance 30 -475 160 Weight 57 kg 58.5 kg Intake: Oral 480 360 Output: Urine 450 475 200 Other: Voiding Method Indwelling Catheter Indwelling Catheter # Bowel Movements 1 1 - Labs CBC & Chem 7: 11/22/20 06:53 11/23/20 08:27 Labs: Abnormal Lab Results - Last 24 Hours (Table) 11/21/20 11/23/20 Range/Units 13:20 08:27 Sodium 131 L (137-145) mmol/L Chloride 96 L (98-107) mmol/L Carbon Dioxide 31 H (22-30) mmol/L BUN 42 H (7-17) mg/dL Total Bilirubin 2.1 H (0.2-1.3) mg/dL AST 62 H (14-36) U/L ALT 97 H (4-34) U/L Alkaline Phosphatase 194 H (38-126) U/L Total Protein 5.5 L (6.3-8.2) g/dL Albumin 2.9 L (3.5-5.0) g/dL Free [place] LC, Quant 2.13 H (0.33-1.94) mg/dL Free Lambda LC, Quant 20.04 H (0.57-2.63) mg/dL
--- NOTE | 2020-11-23 15:25 | P.GSCN ---
History of Present Illness Consult date: 11/23/20 History of present illness: CHIEF COMPLAINT: Shortness of breath Reason for consult: Gallbladder sludge and right upper quadrant pain HISTORY OF PRESENT ILLNESS: This is a 70-year-old female with a history of congestive heart failure, pleural effusion requiring thoracentesis, multiple myeloma has not started chemotherapy yet and amyloidosis with restrictive cardiomyopathy. Surgical history includes hiatal hernia repair and hysterectomy. Patient presented to the hospital complaints of shortness of breath she was found to have bilateral pulmonary embolism and right leg and DVT. She's been started on Eliquis during this admission. She was also treated for CHF exacerbation has been switched over to oral Lasix. She has had elevated LFTs with seen by GI service. Abdominal ultrasound was ordered and findings most suggestive of gallbladder sludge, small right pleural effusion, small amount of ascites and nonobstructing right renal calculus. Surgical service was consult in regards to the gallbladder sludge noted on ultrasound and right upper quadrant abdominal pain. Patient and patient's daughter at bedside did report that patient has been having intermittent right upper quadrant pain for about 2 weeks. The pain is worse after eating greasy foods such as a hamburger. She has been having nausea occasionally. Patient denies any fever chills or sweats. Denies any bowel movement changes. PAST MEDICAL HISTORY: See list. PAST SURGICAL HISTORY: See list. MEDICATIONS: See list. ALLERGIES: See list. SOCIAL HISTORY: No illicit drug use. REVIEW OF SYSTEMS: CONSTITUTIONAL: Denies fever or chills. HEENT: Denies blurred vision, vision changes, or eye pain. Denies hemoptysis CARDIOVASCULAR: Denies chest pain or pressure. RESPIRATORY: No shortness of breath. GASTROINTESTINAL: See HPI for pertinent findings HEMATOLOGIC: Denies bleeding disorders. GENITOURINARY: Denies any blood in urine or increased urinary frequency. SKIN: Denies pruitis. Denies rash. PHYSICAL EXAM: VITAL SIGNS: Reviewed GENERAL: Well-developed in no acute distress. HEENT: No sclera icterus. Extraocular movements grossly intact. Moist buccal mucosa. Head is atraumatic, normocephalic. No nasal drainage. ABDOMEN: Soft. Nondistended. Right upper quadrant tenderness with palpation NEUROLOGIC: Alert and oriented. Cranial nerves II through XII grossly intact. LABORATORY DATA: Patient had 1 WBC of 13.4 now down to 9.6 hemoglobin 15.5 platelets 226 Sodium 131 potassium 4.8 creatinine 0.71 total bilirubin 2.1 AST 62 ALT 97 alk phos 194 Hepatitis panel negative IMAGING: Abdominal ultrasound findings as stated above ASSESSMENT: 1. Right upper quadrant abdominal pain with abdominal ultrasound findings suggestive of gallbladder sludge 2. Elevated LFTs 3. Bilateral pulmonary embolism and right leg DVT on Eliquis 4. Acute on chronic CHF exacerbation 5. Multiple myeloma has not started chemotherapy yet PLAN: -Further recommendations forthcoming per surgeon -Start antibiotics -Recommend low-fat diet -Continue supportive care Thank you for this consultation Physician Enroller note has been reviewed by physician. Signing provider agrees with the documented findings, assessment, and plan of care. Past Medical History Past Medical History: Asthma, Chest Pain / Angina, GERD/Reflux, Hyperlipidemia, Hypertension, Myocardial Infarction ([place]) Additional Past Medical History / Comment(s): Hiatal Hernia, hx 2 ulcers in stomach; Bursitis both knees. Hx pancreatitis, SOB w/exertion due to hernia, history of pericardial effusion, right pleural effusion, status post right th oracentesis Last Myocardial Infarction Date:: 07/2020 History of Any Multi-Drug Resistant Organisms: None Reported Past Surgical History: Back Surgery, Heart Catheterization, Hysterectomy, Orthopedic Surgery, Tonsillectomy Additional Past Surgical History / Comment(s): Back surgery with hardware, L c arpal tunnel, L foot surgery, Past Anesthesia/Blood Transfusion Reactions: Previous Problems w/ Anesthesia, Motion Sickness, Postoperative Nausea & Vomiting (PONV) Additional Past Anesthesia/Blood Transfusion Reaction / Comm: was told stopped breathing during EGD Date of Last Stent Placement:: unknown Past Psychological History: Depression Smoking Status: Never smoker Past Alcohol Use History: Rare Past Drug Use History: None Reported - Past Family History Mother Family Medical History: No Reported History, Asthma, Diabetes Mellitus Father Family Medical History: No Reported History Additional Family Medical History / Comment(s): Father lived to be 90yrs. Sister(s) Family Medical History: No Reported History Daughter(s) Family Medical History: No Reported History Medications and Allergies Home Medications Medication Instructions Recorded Confirmed Type Omeprazole 20 mg PO BID 08/24/20 11/19/20 History Multivitamins, Thera [Multivitamin 1 tab PO DAILY 10/07/20 11/19/20 History (formulary)] Sertraline [Zoloft] 50 mg PO DAILY 10/07/20 11/19/20 History Spironolactone [Aldactone] 25 mg PO BID 10/07/20 11/19/20 History ALPRAZolam [Xanax] 0.25 mg PO HS #3 tab 10/18/20 11/19/20 Rx Furosemide [Lasix] 40 mg PO DAILY #30 tablet 10/18/20 11/19/20 Rx Metoprolol Tartrate [Lopressor] 12.5 mg PO DAILY tab 10/18/20 11/19/20 Rx Acetaminophen [Tylenol 8 Hour] 650 mg PO Q4H PRN 11/19/20 11/19/20 History Allergies Allergy/AdvReac Type Severity Reaction Status Date / Time No Known Allergies Allergy Verified 11/19/20 21:34 Surgical - Exam Vital Signs Temp Pulse Resp BP Pulse Ox 97.9 F 69 16 90/68 97 11/19/20 15:45 11/19/20 15:45 11/19/20 15:45 11/19/20 15:45 11/19/20 15:45 Results - Labs 11/22/20 06:53 11/23/20 08:27 Abnormal Lab Results - Last 24 Hours (Table) 11/21/20 11/23/20 Range/Units 13:20 08:27 Sodium 131 L (137-145) mmol/L Chloride 96 L (98-107) mmol/L Carbon Dioxide 31 H (22-30) mmol/L BUN 42 H (7-17) mg/dL Total Bilirubin 2.1 H (0.2-1.3) mg/dL AST 62 H (14-36) U/L ALT 97 H (4-34) U/L Alkaline Phosphatase 194 H (38-126) U/L Total Protein 5.5 L (6.3-8.2) g/dL Albumin 2.9 L (3.5-5.0) g/dL Free [place] LC, Quant 2.13 H (0.33-1.94) mg/dL Free Lambda LC, Quant 20.04 H (0.57-2.63) mg/dL Diabetes panel 11/23/20 Range/Units 08:27 Sodium 131 L (137-145) mmol/L Potassium 4.8 (3.5-5.1) mmol/L Chloride 96 L (98-107) mmol/L Carbon Dioxide 31 H (22-30) mmol/L BUN 42 H (7-17) mg/dL Creatinine 0.71 (0.52-1.04) mg/dL Glucose 98 (74-99) mg/dL Calcium 9.4 (8.4-10.2) mg/dL AST 62 H (14-36) U/L ALT 97 H (4-34) U/L Alkaline Phosphatase 194 H (38-126) U/L Total Protein 5.5 L (6.3-8.2) g/dL Albumin 2.9 L (3.5-5.0) g/dL Calcium panel 11/23/20 Range/Units 08:27 Calcium 9.4 (8.4-10.2) mg/dL Albumin 2.9 L (3.5-5.0) g/dL Pituitary panel 11/23/20 Range/Units 08:27 Sodium 131 L (137-145) mmol/L Potassium 4.8 (3.5-5.1) mmol/L Chloride 96 L (98-107) mmol/L Carbon Dioxide 31 H (22-30) mmol/L BUN 42 H (7-17) mg/dL Creatinine 0.71 (0.52-1.04) mg/dL Glucose 98 (74-99) mg/dL Calcium 9.4 (8.4-10.2) mg/dL Adrenal panel 11/23/20 Range/Units 08:27 Sodium 131 L (137-145) mmol/L Potassium 4.8 (3.5-5.1) mmol/L Chloride 96 L (98-107) mmol/L Carbon Dioxide 31 H (22-30) mmol/L BUN 42 H (7-17) mg/dL Creatinine 0.71 (0.52-1.04) mg/dL Glucose 98 (74-99) mg/dL Calcium 9.4 (8.4-10.2) mg/dL Total Bilirubin 2.1 H (0.2-1.3) mg/dL AST 62 H (14-36) U/L ALT 97 H (4-34) U/L Alkaline Phosphatase 194 H (38-126) U/L Total Protein 5.5 L (6.3-8.2) g/dL Albumin 2.9 L (3.5-5.0) g/dL
[2020-11-23] MEDS: PIPERACILLIN-TAZOBACTAM 3.375 GM in SODIUM CHLORIDE 0.9% 100 ML IVPB SCH ×2 (17:00→23:15)
[2020-11-23 19:30] LABS: Anti-Smith Ab Interp NEGATIVE (NEGATIVE)
[2020-11-23] MEDS: ALPRAZolam 0.25 MG TAB PO SCH (20:01)
[2020-11-24] MEDS: PANTOPRAZOLE 40 MG TABLET PO SCH (06:44)
[2020-11-24] MEDS: IPRATROPIUM-ALBUTEROL 3 ML NEB INHALATION SCH ×3 (08:27→20:13)
[2020-11-24] MEDS: ASPIRIN 81 MG PO SCH (09:00)
[2020-11-24] MEDS: PIPERACILLIN-TAZOBACTAM 3.375 GM in SODIUM CHLORIDE 0.9% 100 ML IVPB SCH ×2 (09:36→16:00)
[2020-11-24] MEDS: SERTRALINE 50 MG TAB PO SCH (09:37)
[2020-11-24] MEDS: APIXABAN 5 MG TAB PO SCH ×2 (09:38→20:54)
[2020-11-24] MEDS: FUROSEMIDE 20 MG TAB PO SCH (09:38)
[2020-11-24 12:16] LABS: ALT 73 U/L (4-34); AST 48 U/L (14-36); African American GFR (CKD) >90 (>60 ml/min/1.73 sqM); Albumin 2.6 g/dL (3.5-5.0); Alkaline Phosphatase 183 U/L (38-126); Anion Gap 3 mmol/L; Blood Urea Nitrogen 34 mg/dL (7-17); Carbon Dioxide 30 mmol/L (22-30); Chloride 98 mmol/L (98-107); Glucose 86 mg/dL (74-99); Non-African American GFR(CKD) 89 (>60 ml/min/1.73 sqM); Potassium 4.5 mmol/L (3.5-5.1); Sodium 131 mmol/L (137-145); Total Bilirubin 1.8 mg/dL (0.2-1.3); Total Protein 5.2 g/dL (6.3-8.2)
--- NOTE | 2020-11-24 13:54 | P.PN ---
Subjective Progress Note Date: 11/24/20 CHIEF COMPLAINT: Shortness of breath HISTORY OF PRESENT ILLNESS: Surgical service is following regards to patient's right upper quadrant abdominal pain and gallbladder sludge noted on ultrasound. Patient started on antibiotics yesterday for cholecystitis. And also started on a low-fat diet. Patient reports being able to eat this morning without any nausea or vomiting. She denies any pain in the right upper quadrant. Afebrile. WBC 6.2 PHYSICAL EXAM: VITAL SIGNS: Reviewed. GENERAL: Well-developed in no acute distress. HEENT: No sclera icterus. Extraocular movements grossly intact. Moist buccal mucosa. Head is atraumatic, normocephalic. ABDOMEN: Soft. Nondistended. Nontender. NEUROLOGIC: Alert and oriented. Cranial nerves II through XII grossly intact. ASSESSMENT: 1. Cholecystitis. Right upper quadrant abdominal pain with abdominal ultrasound findings suggestive of gallbladder sludge 2. Elevated LFTs 3. Bilateral pulmonary embolism and right leg DVT on Eliquis 4. Acute on chronic CHF exacerbation 5. Multiple myeloma has not started chemotherapy yet PLAN: -No surgical intervention planned at this time. Patient is a poor surgical candidate due to her acute bilateral pulmonary embolism and right leg DVT. She also has a very complicated medical history. Possible laparoscopic cholecystectomy outpatient in about 6 months. -Continue conservative management -Continue IV antibiotics -Continue low-fat diet -Continue supportive care Physician [employer] note has been reviewed by physician. Signing provider agrees with the documented findings, assessment, and plan of care. Objective - Vital Signs Vital signs: Vital Signs Temp 98 F 11/24/20 08:00 Pulse 94 11/24/20 08:00 Resp 18 11/24/20 08:00 BP 97/63 11/24/20 08:00 Pulse Ox 93 L 11/24/20 08:27 Intake & Output 11/23/20 11/24/20 11/24/20 18:59 06:59 18:59 Intake Total 600 340 240 Output Total 200 825 Balance 400 -485 240 Weight 60.5 kg Intake: Intake, IV Titration 100 Amount Piperacillin-Tazobactam 3 100 .375 gm In Sodium Chloride 0.9% 100 ml @ 25 mls/hr IVPB Q8HR [facility] Rx# :[id number] Oral 600 240 240 Output: Urine 200 825 Other: Voiding Method Indwelling Catheter Indwelling Catheter # Bowel Movements 1 1 - Labs CBC & Chem 7: 08/23/21 06:53 11/24/20 11:34 Labs: Abnormal Lab Results - Last 24 Hours (Table) 11/21/20 Range/Units 13:20 Free [place] LC, Quant 2.13 H (0.33-1.94) mg/dL Free Lambda LC, Quant 20.04 H (0.57-2.63) mg/dL
--- NOTE | 2020-11-24 14:39 | P.PN ---
Subjective Progress Note Date: 11/24/20 Principal diagnosis: Transaminitis 70-year-old female who presented to the emergency department with complaints of shortness of breath and was found to have bilateral pulmonary embolism, currently on Eliquis. The patient has multiple comorbidities. She was recently diagnosed with multiple myeloma, chemotherapy has not been started she was in and out of extended care facility and receiving high doses of Decadron. She had pleural effusions and recently underwent thoracentesis on last admission. Gastroenterology was consult for elevation and her LFTs. Patient denies any history of liver disease, no alcohol use, family history of liver disease, or new medications other than the Decadron. On her last admission her abdominal ultrasound did show possible cholecystitis. Repeat abdominal ultrasound was ordered yesterday showing gallbladder sludge, small right pleural effusion, small amount of ascites, nonobstructing right renal calculus, CBD is within normal limits.. The patient denies any previous history of gallbladder disease. She is denying any abdominal pain, nausea, or vomiting. Patient likely has a component of underlying liver disease. Gen. surgery is following. They initiated IV antibiotics. LFTs are trending down. Objective - Vital Signs Vital signs: Vital Signs Temp 98 F 11/24/20 08:00 Pulse 94 11/24/20 08:00 Resp 18 11/24/20 08:00 BP 97/63 11/24/20 08:00 Pulse Ox 93 L 11/24/20 08:27 Intake & Output 11/23/20 11/24/20 11/24/20 18:59 06:59 18:59 Intake Total 600 340 240 Output Total 200 825 Balance 400 -485 240 Weight 60.5 kg Intake: Intake, IV Titration 100 Amount Piperacillin-Tazobactam 3 100 .375 gm In Sodium Chloride 0.9% 100 ml @ 25 mls/hr IVPB Q8HR [facility] Rx# :[id number] Oral 600 240 240 Output: Urine 200 825 Other: Voiding Method Indwelling Catheter Indwelling Catheter # Bowel Movements 1 1 - Exam General appearance: The patient is alert, oriented, appears in no acute distress. HET: Head is normocephalic and atraumatic. Conjunctiva pink. Sclera anicteric. Neck: Supple without lymphadenopathy. Abdomen: Soft, right upper quadrant tenderness,, nondistended with bowel sounds. No guarding or rigidity. Extremities: Normal skin color and turgor. No pedal edema Skin: No rashes, no jaundice Neurological: No focal deficits. Alert and oriented 3. - Labs CBC & Chem 7: 11/22/20 06:53 11/24/20 11:34 Labs: Abnormal Lab Results - Last 24 Hours (Table) 11/21/20 Range/Units 13:20 Free [place] LC, Quant 2.13 H (0.33-1.94) mg/dL Free [place] LC, Quant 20.04 H (0.57-2.63) mg/dL Assessment and Plan (1) Transaminitis Narrative/Plan: 70-year-old female who presented to the emergency department with complaints of shortness of breath was found to have acute pulmonary embolism and started on anticoagulation. Patient has multiple comorbidities including recent diagnosis of multiple myeloma undergoing treatment with Dr. Madrid. She was noted to have elevation in her liver enzymes and gastroenterology was consulted. Patient has had elevated LFTs since July of this year. She denies any previous alcohol history, family history of liver disease, new medications, or known liver disease. She denies any previous history of hepatitis. She had a liver ultrasound done during her last admission in September of this year that showed mild ascites, thickened gallbladder wall at 0.45 cm. Some pericholecystic fluid present. Correlate for cholecystitis. Liver appeared to be coarse in echotexture. Current LFTs total bilirubin 2.2, alkaline phosphatase 179, AST 67, ALT 101. Unknown etiology at this time. Will order hepatitis panel, KAIA, AMA, and SMA for further evaluation. Abdominal ultrasound with findings suggestive of gallbladder sludge, small right pleural effusion, small amount of ascites, nonobstructing right renal calculus, CBD within normal limits. Etiology unknown, likely has underlying liver disease. Liver serology negative to date. Current Visit: No Status: Acute Priority: High Code(s): R74.01 - ELEVATION OF LEVELS OF LIVER TRANSAMINASE LEVELS SNOMED Code(s): 064539189 (2) Multiple myeloma Current Visit: Yes Status: Acute Priority: High Code(s): C90.00 - MULTIPLE MYELOMA NOT HAVING ACHIEVED REMISSION SNOMED Code(s): 856060802 (3) Pulmonary embolism Current Visit: Yes Status: Acute Priority: High Code(s): I26.99 - OTHER PULMONARY EMBOLISM WITHOUT ACUTE COR PULMONALE SNOMED Code(s): 87444941 Plan: 1. Continue symptomatic and supportive care 2. Repeat CMP daily 3. Abdominal ultrasound ordered and reviewed 4. AMA, KAIA, SMA ordered, negative to date 5. Avoid hepatotoxic medications 6. Gen. surgery following Thank you for this consultation, we will continue to follow. Dr. Jf Sandhu I agree with the dictator's note, documented as a scribe by Suzy Smith.
--- NOTE | 2020-11-24 16:24 | P.PN ---
Subjective Progress Note Date: 11/24/20 History of present illness This 70-year-old pleasant female patient of Dr. Hand, with underlying history of paraesophageal hiatal hernia and GERD, chronic bronchial asthma, mild intermittent hypertension, hyperlipidemia, and recently diagnosed to have amyloidosis and multiple myeloma, through confirmed bone marrow biopsy was supposed to start treatment with Dr. Madrid on 10/11/2020. She was recently hospitalized, 08/25/2020, for shortness of breath, sees Dr. Soria cardiology and was diagnosed to have an STEMI, in, 07/17/2020, in the clinic in [facility]. She underwent a heart cath, the second time and was found to have nonobstructive CAD, diastolic CHF, EF was documented to be normal that time, and was discharged with Cozaar and Lopressor Lasix and potassium. Patient had a prolonged hospitalization from October 09/2021 to October 25/2021 for worsening shortness of breath. She was treated for cardiomyopathy likely secondary to amyloidosis from multiple myeloma, pleural effusions underwent thoracentesis where 700 mL was removed. Pleural fluid was transudative and cytology was nondiagnostic negative fluid culture. Patient had echocardiogram during that admission suggest EF of 45-50% moderate concentric left ventricular hypertrophy with moderate generalized pericardial effusion mild pulmonary hypertension. Patient was treated with dexamethasone for multiple myeloma but could not be started on chemotherapy Remlivid as patient was discharged to subacute rehab . Patient has been home for past 3 weeks where she was noted to be more short of breath with increased weakness. According to the family patient has not been active at home and is progressively getting worse despite getting physical therapy. On assessment in the ER, chest x-ray Mild congestive heart failure with chronic pleural effusion with slightly increased congestion compared to previous x-ray. CT is suggestive of bilateral small lower lobe pulmonary emboli which appeared new compared to on exam but changes of congestive heart failure and pulmonary edema right pleural effusion and moderate cardiomegaly epicardial effusion and ground glass interstitial edema that increased compared to old exam. EKG obtained suggested normal sinus rhythm with sinus arrhythmia. Overnight patient continued to have low blood pressure with a systolic in the 70s and diastolic in the 50s. One and a half liter of IV fluid was given with improvement in pressures. Patient is currently on 4 L of oxygen saturating at 94% labs reviewed suggest a WBC of 10.2 hemoglobin 16.8 hematocrit 50.7 d-dimer 2.3 sodium 128 potassium 4.6 BUN of 43 creatinine 0.6 elevated liver enzymes AST 59 ALT 122 alkaline phosphatase 222 troponin elevation of 0.1880 BNP elevated at 17,000 she was started on heparin infusion for pulmonary embolism. Venous Dopplers and echocardiogram ordered. Cardiothoracic surgery consulted for moderate pericardial effusion chest x-ray Mild congestive heart failure with chronic pleural effusion with slightly increased congestion compared to previous x-ray. CT is suggestive of bilateral small lower lobe pulmonary emboli which appeared new compared to on exam but changes of congestive heart failure and pulmonary edema right pleural effusion and moderate cardiomegaly epicardial effusion and ground glass interstitial edema that increased compared to old exam. EKG obtained suggested normal sinus rhythm with sinus arrhythmia 11/21 patient examined bedside. She is currently on 3 L of oxygen saturating 95% afebrile pulse 87 and respiratory rate 16 blood pressure 90/61. Patient's has improvement in sodium to 130 potassium 4.2 BUN 15 creatinine 0.6 glucose 159 and total bilirubin 2.6 AST 52 ALT 86 alkaline phosphatase 185 patient was noted to have elevated liver enzymes in the previous hospitalization total bilirubins continued to downtrend.ltrasound liver obtained during last hospitalization was found to have acute cholecystitis with that the cholecystic fluid. This Vessel surgery has seen the patient plan to transition patient to oral anticoagulation with no surgical intervention. Patient initiated on Eliquis 10 mg twice a day. Doppler lower extremity suggestive nonocclusive DVT in the right lower extremity. Echocardiogram suggestive of restrictive cardiomyopathy with EF 40- 45%. Probably pressure around 37.4. Moderate pleural effusion noted. Cardi othoracic surgeon plans no intervention. PTOT consult. Patient initiated on Lasix 20 mg IV daily 11/22 patient examined bedside. Patient appears very depressed. States she would like to go home and get her strength back. Patient was seen by physical therapy. Patient is currently a 2 person assist to get her out of the bed to the chair. Patient has progressed poorly in the long-term. [facility]. patient denies any shortness of breath or chest pain. She is stable at 3 L of oxygen. Blood pressure 88/56 pulse 862 respiratory rate 18. Patient received a dose of 20 mg of Lasix this morning and metoprolol 12.5 once a day with the worsening of blood pressure. Will hold metoprolol. Continue Lasix at 20 mg by mouth daily. Discussed plan with family. If patient's blood pressure stabilizes patient will be discharged from the [facility] with follow-up with oncology for possible chemotherapy initiation. GI seen the patient for ultrasound of the liver ordered 11/23 patient examined bedside. She is extremely weak and lethargic. Patient was seen best physical therapy were recommended going back to subacute rehab but patient is too weak to make any progression. Patient was at [facility] and was discharged because she was not making any progress. Family is interested in an assisted living facility with 24-hour care hired by the family. Patient answers questions appropriately denies any dizziness or lightheadedness. Denies any chest pain or breathing difficulty. Vitals were reviewed patient's afebrile pulse 86 respiratory rate 18 blood pressure 98/66 oxygen saturation 95 on 3 L. Ultrasound of her suggestive of gallbladder sludge with possibility of cholecystitis. The surgery team consulted. Patient had hiatal hernia repair by Dr. Sharp in Apr 2020. Surgery team will get back with the family if surgery could be performed. We will discuss patient's prognosis with Dr. Madrid to see if patient can tolerate chemotherapy. Detailed discussion was made with the power of trade mark attorney would do understand that if no progress is made and if patient cannot tolerate chemotherapy, and they are willing to switch patient to palliative care. 11/23 patient examined bedside. Appears slightly confused on assessment today. No plan for surgery as patient is a poor surgical candidate. IV antibiotics to be continued for cholecystitis. Supportive care recommended by GI. Repeat CMP tomorrow. AMA, KAIA and SMA are negative. Vitals were reviewed patient has temp of 98.3 pulse 96 respiratory 16 blood pressure 94/57 saturating at 94% on 3 L. No episodes of fever overnight. Labs reviewed patient's sodium 131 BUN 34 creatinine 0.6 AST 48 ALT 73 alkaline phosphatase stable at 183 slightly improved compared to yesterday. Hepatitis panel was negative. ROS Constitutional: Denies chills, Denies fever,endorses increasing weaknesss, Denies weight loss Eyes: denies decreased vision, denies diplopia, denies discharge, denies pain Ears: deny: decreased hearing Ears, nose, mouth and throat: Denies dental pain, Denies headache, Denies nasal discharge, Denies nose pain Cardiovascular: Denies chest pain, improved exercise tolerance, LE edema, Denies high blood pressure, Denies irregular heart beat, Denies palpitations, Denies paroxysmal nocturnal dyspnea, Denies rapid heart beat, Denies shortness of breath Respiratory Denies cough, Denies cough with sputum and dyspnea stable Denies home oxygen, Denies wheezing Gastrointestinal: Denies abdominal pain, Denies change in bowel habits, Denies coffee ground emesis, Denies early satiety, Denies excessive gas, Denies heartburn, Denies hematemesis, Denies hematochezia, Denies loss of appetite, Denies nausea, Denies vomiting Genitourinary: Denies dysuria, Denies flank pain, Denies kidney stones, Denies menorrhagia, Denies urgency, Denies urinary frequency Musculoskeletal Endorses gait dysfunction, Denies limitation of motion, Denies morning stiffness, Denies muscle cramps Integumentary: Denies rash, Denies wounds, Denies brittle nails, Denies change in hair/nails, Denies darkening of skin Neurological: Denies balance difficulties, Denies change in speech, Denies doubl e vision, Denies gait dysfunction, Denies loss of vision, Denies motor disturbance, Denies numbness, Denies paralysis, Denies paresthesias, Denies seizures Psychiatric: Denies anxiety, Denies depression Endocrine: Denies excessive sweating, Denies excessive thirst, Denies high blood sugars, Denies palpitations Hematologic/Lymphatic: Denies easy bruising, Denies lymphadenopathy Physical exam - Constitutional General appearance: cooperative, no acute distress,significantly debilitated, appears confused - EENT Eyes: anicteric sclerae, PERRLA, normal appearance ENT: hearing grossly normal - Neck Neck: no lymphadenopathy, normal ROM, no other, no rigidity, no stridor, no thyromegaly - Respiratory Respiratory: bilateral:Increased air entry with crackles at the bases, rhonchi no wheezing - Cardiovascular Rhythm: regular Heart sounds: normal: S1, S2 Abnormal Heart Sounds: no systolic murmur, no diastolic murmur, positive for S3 Gallop, no S4 Gallop, no click, 2+ pitting edema oth - Gastrointestinal General gastrointestinal: normal bowel sounds, soft tender rigth upper quad - Integumentary Integumentary: no rash - Neurologic Neurologic:No motor or sensory deficits - Musculoskeletal Musculoskeletal Gait not assessed strength equal bilaterally - Psychiatric Psychiatric: A&O x's 2, appropriate affect Assessment and plan .#1 acute hypoxic respiratory failure secondary to acute on chronic systolic and diastolic congestive heart failure and pulmonary embolism. Heparin drip switch to Eliquis. Venous Dopplers ordered. Echocardiogram with EF 40-45 % with severe concentric left ventricular hypertrophy small likely restrictive cardiomyopathy pericardial effusion mild enlargement of right ventricle mild pulmonary hypertension September 2020 monitor KATARINA's and daily weights Lasix initiated 20 IV daily on po Lasix 20 mg by mouth daily #2. Acute on chronic systolic and diastolic congestive heart failure likely restrictive cardiomyopathy based on echocardiogram. Patient is able to tolerate oral Lasix. Continue I&O's and daily monitoring of weight #3. Bilateral pulmonary embolism and right DVT continue Eliquis at 10 mg twice a day. Patient is immobile and has fatigue. . Since patient has not progressed with physical therapy at the long-term will be discharged to [facility] facility with PT 4. Elevated troponins which is chronic Patient had recent heart catheterization in [place] was reported as negative for obstructive disease 07/2020. Cardiology consult and repeat troponins. Echocardiogram conclusion: EF between 40-45%, severe concentric left ventricular atrophy, mild generalized pericardial effusion present, right ventricle is mildly enlarged, ileus mildly dilated, mild pulmonary hypertension. Her ventricular systolic pressure measured by Doppler is 37.4 mmHg. moderate tricuspid regurgitation 5. Chronic pericardial effusion appears small per echocardiogram repeat echocardiogram pending. Cardiothoracic surgery consulted 6. Amyloidosis, suspect nonischemic cardiomyopathy, no treatment initiated yet, oncology consult appreciated 7. Multiple myeloma. Patient completed course of dexamethasone. Plan for [place] once patient finishes physical therapy but patient continues to stay physically debilitated and needs inpatient or subacute rehab the treatment could not be initiated. 8. Acute cholecystitis possibly secondary to amyloid as well, GI liver ultrasound suggestive of acute cholecystitis. Surgery team recommends conservative management. IV antibiotics to be continued 9. Hyponatremia likely secondary to hypovolemia from congestive heart failure continue to monitor daily CMP 10. Restrictive cardiomyopathy likely secondary to multiple myeloma. Continue diuresis with po Lasix monitor KATARINA's daily weight 11. Hypertension. Hold Lopressor 25 mg twice daily due to low blood pressure. 12. Hiatal hernia status post robotic-assisted laparoscopic repair of incarcerated paraesophageal hernia in April 2020, stable. 13. Mild intermittent asthma, stable. 14. Gastroesophageal reflux disease and GI prophylaxis. Continue omeprazole 20 g twice daily. 15. Generalized anxiety disorder. Continue Xanax 0.25 mg twice daily. 14. Bilateral Lower extremity weakness. Due to generalized debility CAT scan of the lumbar spine done in the last was negative for compression spine. 16 small pleural effusion status post thoracentesis 700 mL the previous admission. Pulmonary recommendation appreciated 17. Hyperlipidemia. Hold Lipitor 20 mg daily due to transaminitis. 18. DVT right lower extremity nonocclusive on Eliquis 10 mg twice a day 19. GI prophylaxis. Protonix 40 mg 20 severe disability. PTOT evaluation suggest patient would need rehab facility. Patient appears significantly weak unable to make any progress with physical therapy. Family preference to discharge to [facility] with PT OT. CODE STATUS: CODE STATUS discussed with patient patient would like to be a no code and does not require intubation but nurse updated later the family decided to keep patient for code Discharge plan: PT OT consult for possible rehab placement. Spoke to the power of trade mark attorney of the patient the would like the patient go to [facility] so that she can be treated for her cancer and since patient has not made any progress with rehab. Discussed with family Sarika power of trade mark attorney possibility of palliative care if patient is unable to tolerate chemotherapy. Family willing to switch to palliative care if patient is a poor prognosis and unable to tolerate chemotherapy Objective - Vital Signs Vital signs: Vital Signs Temp 98 F 11/24/20 12:00 Pulse 94 11/24/20 14:00 Resp 18 11/24/20 14:00 BP 95/62 11/24/20 12:00 Pulse Ox 94 L 11/24/20 12:00 Intake & Output 11/23/20 11/24/20 11/24/20 18:59 06:59 18:59 Intake Total 600 340 600 Output Total 200 825 Balance 400 -485 600 Weight 60.5 kg Intake: Intake, IV Titration 100 Amount Piperacillin-Tazobactam 3 100 .375 gm In Sodium Chloride 0.9% 100 ml @ 25 mls/hr IVPB Q8HR [facility] Rx# :[id number] Oral 600 240 600 Output: Urine 200 825 Other: Voiding Method Indwelling Catheter Indwelling Catheter # Bowel Movements 1 1 1 - Labs CBC & Chem 7: 11/22/20 06:53 11/24/20 11:34 Labs: Abnormal Lab Results - Last 24 Hours (Table) 11/24/20 Range/Units 11:34 Sodium 131 L (137-145) mmol/L BUN 34 H (7-17) mg/dL Total Bilirubin 1.8 H (0.2-1.3) mg/dL AST 48 H (14-36) U/L ALT 73 H (4-34) U/L Alkaline Phosphatase 183 H (38-126) U/L Total Protein 5.2 L (6.3-8.2) g/dL Albumin 2.6 L (3.5-5.0) g/dL
[2020-11-24] MEDS: ACETAMINOPHEN TAB 325 MG TAB PO PRN (17:58)
[2020-11-24] MEDS: ALPRAZolam 0.25 MG TAB PO SCH (20:54)
[2020-11-25] MEDS: PIPERACILLIN-TAZOBACTAM 3.375 GM in SODIUM CHLORIDE 0.9% 100 ML IVPB SCH ×3 (00:01→18:08)
[2020-11-25] MEDS: PANTOPRAZOLE 40 MG TABLET PO SCH (06:28)
[2020-11-25] MEDS: IPRATROPIUM-ALBUTEROL 3 ML NEB INHALATION SCH ×3 (08:13→20:04)
[2020-11-25 08:39] VITALS: RESP 18
[2020-11-25 08:45] LABS: Glucose,Whole Blood 123 mg/dL (75-99)
--- NOTE | 2020-11-25 09:11 | P.EN ---
I responded to a rapid response team called by nursing staff due to hypotension. Nursing staff informed me that her blood pressure was 74/54. By the time I got to the room repeat blood pressure was 89/58. Patient has underlying heart failure and her blood pressure normally runs low in the 90s systolic. Patient was awake and alert. She does not have any complaints. She is afebrile. No evidence of sepsis. She has complex past medical history including multiple myeloma, underlying systolic and diastolic heart failure, and pulmonary emboli on anticoagulation. I advised the nurse to always recheck blood pressure manually to confirm low readings on any patient. I also advised to check a lactic acid to ensure there is no hypoperfusion. Continue to monitor otherwise. Avoid unnecessary fluid boluses secondary to underlying diagnosis of heart failure. Continue to monitor clinical status closely. Inform attending physician about the event.
[2020-11-25] MEDS: ASPIRIN 81 MG PO SCH (09:30)
[2020-11-25] MEDS: SERTRALINE 50 MG TAB PO SCH (09:30)
[2020-11-25] MEDS: APIXABAN 5 MG TAB PO SCH ×2 (09:30→20:31)
[2020-11-25] MEDS: FUROSEMIDE 20 MG TAB PO SCH (09:31)
--- NOTE | 2020-11-25 11:12 | P.PN ---
Subjective Progress Note Date: 11/25/20 CHIEF COMPLAINT: Shortness of breath HISTORY OF PRESENT ILLNESS: Surgical service following in regards to patient's cholecystitis. Patient denies any abdominal pain. She is tolerating diet. She denies any nausea or vomiting. "A team" was called this morning on patient for hypotension. Patient is afebrile. Blood pressure is 86/58. Lactic acid 1.1 LFTs and total bilirubin trending downwards. Labs from yesterday showed total bili of 1.8 AST 48 ALT 73 alk phos 183 PHYSICAL EXAM: VITAL SIGNS: Reviewed. GENERAL: Well-developed in no acute distress. HEENT: No sclera icterus. Extraocular movements grossly intact. Moist buccal mucosa. Head is atraumatic, normocephalic. ABDOMEN: Soft. Nondistended. Nontender. NEUROLOGIC: Alert and oriented. Cranial nerves II through XII grossly intact. ASSESSMENT: 1. Cholecystitis. No longer having abdominal pain. abdominal ultrasound findings suggestive of gallbladder sludge 2. Elevated LFTs trending downwards 3. Bilateral pulmonary embolism and right leg DVT on Eliquis 4. Acute on chronic CHF exacerbation 5. Multiple myeloma has not started chemotherapy yet PLAN: -No surgical intervention planned at this time. Patient is a poor surgical candidate due to her acute bilateral pulmonary embolism and right leg DVT. She also has a very complicated medical history. Possible laparoscopic cholecystectomy outpatient in about 6 months when patient is medically stable -Continue conservative management -Continue IV antibiotics -Continue low-fat diet -Continue supportive care Physician Viticulturist note has been reviewed by physician. Signing provider agrees with the documented findings, assessment, and plan of care. Objective - Vital Signs Vital signs: Vital Signs Temp 98.3 F 11/25/20 08:00 Pulse 90 11/25/20 08:00 Resp 18 11/25/20 08:00 BP 86/58 11/25/20 08:43 Pulse Ox 97 11/25/20 08:00 Intake & Output 11/24/20 11/25/20 11/25/20 18:59 06:59 18:59 Intake Total 600 240 Output Total 350 640 Balance 250 -640 240 Weight 61 kg Intake: Oral 600 240 Output: Urine 350 640 Other: Voiding Method Indwelling Catheter External Catheter External Catheter # Voids 1 # Bowel Movements 1 1 - Labs CBC & Chem 7: 11/22/20 06:53 11/24/20 11:34 Labs: Abnormal Lab Results - Last 24 Hours (Table) 11/24/20 11/25/20 Range/Units 11:34 08:43 Sodium 131 L (137-145) mmol/L BUN 34 H (7-17) mg/dL POC Glucose (mg/dL) 123 H (75-99) mg/dL Total Bilirubin 1.8 H (0.2-1.3) mg/dL AST 48 H (14-36) U/L ALT 73 H (4-34) U/L Alkaline Phosphatase 183 H (38-126) U/L Total Protein 5.2 L (6.3-8.2) g/dL Albumin 2.6 L (3.5-5.0) g/dL
[2020-11-25] MEDS ORDERED: SODIUM CHLORIDE 0.9% 250 ML IV SCH (11:30)
[2020-11-25 11:48] LABS: Anisocytosis Slight; Basophils # (A) 0.1 k/uL (0-0.2); Basophils % (A) 1 %; Eosinophils # (A) 0.1 k/uL (0-0.7); Eosinophils % (A) 1 %; HCT 47.8 % (34.0-46.0); HGB 15.6 gm/dL (11.4-16.0); Lymphocytes # (A) 1.9 k/uL (1.0-4.8); Lymphocytes % (A) 20 %; MCH 31.9 pg (25.0-35.0); MCHC 32.7 g/dL (31.0-37.0); MCV 97.7 fL (80.0-100.0); Macrocytosis Slight; Monocytes # (A) 0.5 k/uL (0-1.0); Monocytes % (A) 5 %; Neutrophils # (A) 6.8 k/uL (1.3-7.7); Neutrophils % (A) 71 %; Platelet Count 261 k/uL (150-450); RDW 17.9 % (11.5-15.5); WBC 9.6 k/uL (3.8-10.6)
[2020-11-25] MEDS: MIDODRINE 5 MG TAB PO SCH ×2 (12:45→17:30)
--- NOTE | 2020-11-25 13:31 | P.PN ---
Subjective Progress Note Date: 11/25/20 History of present illness This 70-year-old pleasant female patient of Dr. Hand, with underlying history of paraesophageal hiatal hernia and GERD, chronic bronchial asthma, mild intermittent hypertension, hyperlipidemia, and recently diagnosed to have amyloidosis and multiple myeloma, through confirmed bone marrow biopsy was supposed to start treatment with Dr. Madrid on 10/11/2020. She was recently hospitalized, 08/25/2020, for shortness of breath, sees Dr. Soria cardiology and was diagnosed to have an STEMI, in, 07/17/2020, in the clinic in [facility]. She underwent a heart cath, the second time and was found to have nonobstructive CAD, diastolic CHF, EF was documented to be normal that time, and was discharged with Cozaar and Lopressor Lasix and potassium. Patient had a prolonged hospitalization from October 09/2021 to October 25/2021 for worsening shortness of breath. She was treated for cardiomyopathy likely secondary to amyloidosis from multiple myeloma, pleural effusions underwent thoracentesis where 700 mL was removed. Pleural fluid was transudative and cytology was nondiagnostic negative fluid culture. Patient had echocardiogram during that admission suggest EF of 45-50% moderate concentric left ventricular hypertrophy with moderate generalized pericardial effusion mild pulmonary hypertension. Patient was treated with dexamethasone for multiple myeloma but could not be started on chemotherapy Remlivid as patient was discharged to subacute rehab . Patient has been home for past 3 weeks where she was noted to be more short of breath with increased weakness. According to the family patient has not been active at home and is progressively getting worse despite getting physical therapy. On assessment in the ER, chest x-ray Mild congestive heart failure with chronic pleural effusion with slightly increased congestion compared to previous x-ray. CT is suggestive of bilateral small lower lobe pulmonary emboli which appeared new compared to on exam but changes of congestive heart failure and pulmonary edema right pleural effusion and moderate cardiomegaly epicardial effusion and ground glass interstitial edema that increased compared to old exam. EKG obtained suggested normal sinus rhythm with sinus arrhythmia. Overnight patient continued to have low blood pressure with a systolic in the 70s and diastolic in the 50s. One and a half liter of IV fluid was given with improvement in pressures. Patient is currently on 4 L of oxygen saturating at 94% labs reviewed suggest a WBC of 10.2 hemoglobin 16.8 hematocrit 50.7 d-dimer 2.3 sodium 128 potassium 4.6 BUN of 43 creatinine 0.6 elevated liver enzymes AST 59 ALT 122 alkaline phosphatase 222 troponin elevation of 0.1880 BNP elevated at 17,000 she was started on heparin infusion for pulmonary embolism. Venous Dopplers and echocardiogram ordered. Cardiothoracic surgery consulted for moderate pericardial effusion chest x-ray Mild congestive heart failure with chronic pleural effusion with slightly increased congestion compared to previous x-ray. CT is suggestive of bilateral small lower lobe pulmonary emboli which appeared new compared to on exam but changes of congestive heart failure and pulmonary edema right pleural effusion and moderate cardiomegaly epicardial effusion and ground glass interstitial edema that increased compared to old exam. EKG obtained suggested normal sinus rhythm with sinus arrhythmia 11/21 patient examined bedside. She is currently on 3 L of oxygen saturating 95% afebrile pulse 87 and respiratory rate 16 blood pressure 90/61. Patient's has improvement in sodium to 130 potassium 4.2 BUN 15 creatinine 0.6 glucose 159 and total bilirubin 2.6 AST 52 ALT 86 alkaline phosphatase 185 patient was noted to have elevated liver enzymes in the previous hospitalization total bilirubins continued to downtrend.ltrasound liver obtained during last hospitalization was found to have acute cholecystitis with that the cholecystic fluid. This Vessel surgery has seen the patient plan to transition patient to oral anticoagulation with no surgical intervention. Patient initiated on Eliquis 10 mg twice a day. Doppler lower extremity suggestive nonocclusive DVT in the right lower extremity. Echocardiogram suggestive of restrictive cardiomyopathy with EF 40- 45%. Probably pressure around 37.4. Moderate pleural effusion noted. Cardi othoracic surgeon plans no intervention. PTOT consult. Patient initiated on Lasix 20 mg IV daily 11/22 patient examined bedside. Patient appears very depressed. States she would like to go home and get her strength back. Patient was seen by physical therapy. Patient is currently a 2 person assist to get her out of the bed to the chair. Patient has progressed poorly in [facility] [place] [facility]. patient denies any shortness of breath or chest pain. She is stable at 3 L of oxygen. Blood pressure 88/56 pulse 862 respiratory rate 18. Patient received a dose of 20 mg of Lasix this morning and metoprolol 12.5 once a day with the worsening of blood pressure. Will hold metoprolol. Continue Lasix at 20 mg by mouth daily. Discussed plan with family. If patient's blood pressure stabilizes patient will be discharged from the hospital for special care with follow-up with oncology for possible chemotherapy initiation. GI seen the patient for ultrasound of the liver ordered 11/23 patient examined bedside. She is extremely weak and lethargic. Patient was seen best physical therapy were recommended going back to subacute rehab but patient is too weak to make any progression. Patient was at [facility] and was discharged because she was not making any progress. Family is interested in an assisted living facility with 24-hour care hired by the family. Patient answers questions appropriately denies any dizziness or lightheadedness. Denies any chest pain or breathing difficulty. Vitals were reviewed patient's afebrile pulse 86 respiratory rate 18 blood pressure 98/66 oxygen saturation 95 on 3 L. Ultrasound of her suggestive of gallbladder sludge with possibility of cholecystitis. The surgery team consulted. Patient had hiatal hernia repair by Dr. Sharp in Apr 2020. Surgery team will get back with the family if surgery could be performed. We will discuss patient's prognosis with Dr. Madrid to see if patient can tolerate chemotherapy. Detailed discussion was made with the power of litigation attorney associate would do understand that if no progress is made and if patient cannot tolerate chemotherapy, and they are willing to switch patient to palliative care. 11/24 patient examined bedside. Appears slightly confused on assessment today. No plan for surgery as patient is a poor surgical candidate. IV antibiotics to be continued for cholecystitis. Supportive care recommended by GI. Repeat CMP tomorrow. AMA, KAIA and SMA are negative. Vitals were reviewed patient has temp of 98.3 pulse 96 respiratory 16 blood pressure 94/57 saturating at 94% on 3 L. No episodes of fever overnight. Labs reviewed patient's sodium 131 BUN 34 creatinine 0.6 AST 48 ALT 73 alkaline phosphatase stable at 183 slightly improved compared to yesterday. Hepatitis panel was negative. 11/25 patient examined bedside denies any difficulty with chest pain shortness of breath. Patient had an event episode this morning since her blood pressure dropped to the low 70s. Manual check suggest improvement in blood pressure to the low 80s. Patient was asymptomatic denies any dizziness or Patient noted to be tired and slightly confused by the nurses. Patient participates in conversation and is able to answer orientation questions. Vitals are stable temperature is 98.1 pulse 84 respiratory rate 18 blood pressure 92/60 oxygenation saturation 98% on 3 L. Lactic acid 1.1 hemoglobin 15.6 sodium stable at 131 BUN 34 creatinine 0.6 total bilirubin improved to 1.8 slight improvement in liver enzymes as per yesterday's labs. Continue Zosyn. Needed can initiate 10 mg 3 times a day to help of blood pressures. Lasix discontinued ROS Co shortness of breath. nstitutional: Denies chills, Denies fever,endorses increasing weaknesss, Denies weight loss Eyes: denies decreased vision, denies diplopia, denies discharge, denies pain Ears: deny: decreased hearing Ears, nose, mouth and throat: Denies dental pain, Denies headache, Denies nasal discharge, Denies nose pain Cardiovascular: Denies chest pain, improved exercise tolerance, LE edema, Denies high blood pressure, Denies irregular heart beat, Denies palpitations, Denies paroxysmal nocturnal dyspnea, Denies rapid heart beat, Denies shortness of breath Respiratory Denies cough, Denies cough with sputum and dyspnea stable Denies home oxygen, Denies wheezing Gastrointestinal: Denies abdominal pain, Denies change in bowel habits, Denies coffee ground emesis, Denies early satiety, Denies excessive gas, Denies heartburn, Denies hematemesis, Denies hematochezia, Denies loss of appetite, Denies nausea, Denies vomiting Genitourinary: Denies dysuria, Denies flank pain, Denies kidney stones, Denies menorrhagia, Denies urgency, Denies urinary frequency Musculoskeletal Endorses gait dysfunction, Denies limitation of motion, Denies morning stiffness, Denies muscle cramps Integumentary: Denies rash, Denies wounds, Denies brittle nails, Denies change in hair/nails, Denies darkening of skin Neurological: Denies balance difficulties, Denies change in speech, Denies double vision, Denies gait dysfunction, Denies loss of vision, Denies motor disturbance, Denies numbness, Denies paralysis, Denies paresthesias, Denies seizures Psychiatric: Denies anxiety, Denies depression Endocrine: Denies excessive sweating, Denies excessive thirst, Denies high blood sugars, Denies palpitations Hematologic/Lymphatic: Denies easy bruising, Denies lymphadenopathy Physical exam - Constitutional General appearance: cooperative, no acute distress,significantly debilitated, appears confused - EENT Eyes: anicteric sclerae, PERRLA, normal appearance ENT: hearing grossly normal - Neck Neck: no lymphadenopathy, normal ROM, no other, no rigidity, no stridor, no thyromegaly - Respiratory Respiratory: bilateral:Increased air entry with crackles at the bases, rhonchi no wheezing - Cardiovascular Rhythm: regular Heart sounds: normal: S1, S2 Abnormal Heart Sounds: no systolic murmur, no diastolic murmur, positive for S3 Gallop, no S4 Gallop, no click, 2+ pitting edema oth - Gastrointestinal General gastrointestinal: normal bowel sounds, soft tender rigth upper quad - Integumentary Integumentary: no rash - Neurologic Neurologic:No motor or sensory deficits - Musculoskeletal Musculoskeletal Gait not assessed strength equal bilaterally - Psychiatric Psychiatric: A&O x's 2, appropriate affect Assessment and plan .#1 acute hypoxic respiratory failure secondary to acute on chronic systolic and diastolic congestive heart failure and pulmonary embolisonquis. Venous Dopplerpositive for DVT in the right leg . Echocardiogram with EF 40-45 % with severe concentric left ventricular hypertrophy small likely restrictive cardiomyopathy pericardial effusion mild enlargement of right ventricle mild pulmonary hypertension September 2020 monitor KATARINA's and daily weightsLasix discontinued due to drop in pressures #2. Acute on chronic systolic and diastolic congestive heart failure likely restrictive cardiomyopathy based on echocarstopped Lasix as patient is not able to tolerate due to low blood pressures. Continue I&O's and daily monitoring of weight #3. Bilateral pulmonary embolism and right DVT continue Eliquis at 10 mg twice a day. Patient is immobile and has fatigue. . Since patient has not progressed with physical therapy at the [place] [facility] will be discharged to [facility] with PT 4. Elevated troponins which is chronic Patient had recent heart catheterization in [place] was reported as negative for obstructive disease 07/2020. Cardiology consult and repeat troponins. Echocardiogram conclusion: EF between 40-45%, severe concentric left ventricular atrophy, mild generalized pericardial effusion present, right ventricle is mildly enlarged, ileus mildly dilated, mild pulmonary hypertension. Her ventricular systolic pressure measured by Doppler is 37.4 mmHg. moderate tricuspid regurgitation 5. Chronic pericardial effusion appears small per echocardiogram repeat echocardiogram pending. Cardiothoracic surgery consulted 6. Amyloidosis, suspect nonischemic cardiomyopathy, no treatment initiated yet, oncology consult appreciated 7. Multiple myeloma. Patient completed course of dexamethasone. improvement in the Keppra light chains noted since previous control. Plan for [facility] once patient finishes physical therapy but patient continues to stay physically debilitated and needs inpatient or subacute rehab the treatment could not be initiated. 8. Acute cholecystitis possibly secondary to amyloid as well, GI liver ultrasound suggestive of acute cholecystitis. Surgery team recommends conservative management. IV antibiotics to be continued 9. Hyponatremia likely secondary to hypovolemia from congestive heart failure continue to monitor daily CMP 10. Restrictive cardiomyopathy likely secondary to multiple myelomaholdis with po Lasix monitor KATARINA's daily weight 11. Hypertension. Hold Lopressor 25 mg twice daily due to low blood pressure. hold Lasix 12. Hiatal hernia status post robotic-assisted laparoscopic repair of incarcerated paraesophageal hernia in April 2020, stable. 13. Mild intermittent asthma, stable. 14. Gastroesophageal reflux disease and GI prophylaxis. Continue omeprazole 20 g twice daily. 15. Generalized anxiety disorder. Continue Xanax 0.25 mg twice daily. 14. Bilateral Lower extremity weakness. Due to generalized debility CAT scan of the lumbar spine done in the last was negative for compression spine. 16 small pleural effusion status post thoracentesis 700 mL the previous admission. Pulmonary recommendation appreciated 17. Hyperlipidemia. Hold Lipitor 20 mg daily due to transaminitis. 18. DVT right lower extremity nonocclusive on Eliquis 10 mg twice a day 19. GI prophylaxis. Protonix 40 mg 20 severe disability. PTOT evaluation suggest patient would need rehab facility. Patient appears significantly weak unable to make any progress with physical therapy. Family preference to discharge to [facility] with PT OT. CODE STATUS: CODE STATUS discussed with patient patient would like to be a no code and does not require intubation but nurse updated later the family decided to keep patient for code Discharge plan: PT OT consult for possible rehab placement. Spoke to the power of litigation attorney associate of the patient the would like the patient go to [facility] so that she can be treated for her cancer and since patient has not made any progress with rehab. Discussed with family Sarika power of litigation attorney associate possibility of palliative care if patient is unable to tolerate chemotherapy. Family willing to switch to palliative care if patient is a poor prognosis and unable to tolerate chemotherapy. Spoke to oncology and feels patient would do well with the treatment. Plan to discharge tomorrow if patient's blood pressure is stable Objective - Vital Signs Vital signs: Vital Signs Temp 98.1 F 11/25/20 12:00 Pulse 84 11/25/20 12:00 Resp 18 11/25/20 12:00 BP 92/60 11/25/20 12:00 Pulse Ox 98 11/25/20 12:00 Intake & Output 11/24/20 11/25/20 11/25/20 18:59 06:59 18:59 Intake Total 600 480 Output Total 350 640 Balance 250 -640 480 Weight 61 kg Intake: Oral 600 480 Output: Urine 350 640 Other: Voiding Method Indwelling Catheter External Catheter External Catheter # Voids 1 # Bowel Movements 1 1 - Labs CBC & Chem 7: 11/25/20 08:58 11/24/20 11:34 Labs: Abnormal Lab Results - Last 24 Hours (Table) 11/25/20 11/25/20 Range/Units 08:43 08:58 Hct 47.8 H (34.0-46.0) % RDW 17.9 H (11.5-15.5) % POC Glucose (mg/dL) 123 H (75-99) mg/dL
--- NOTE | 2020-11-25 14:32 | P.PN ---
Subjective Progress Note Date: 11/25/20 Principal diagnosis: Transaminitis 70-year-old female who presented to the emergency department with complaints of shortness of breath and was found to have bilateral pulmonary embolism, currently on Eliquis. The patient has multiple comorbidities. She was recently diagnosed with multiple myeloma, chemotherapy has not been started she was in and out of extended care facility and receiving high doses of Decadron. She had pleural effusions and recently underwent thoracentesis on last admission. Gastroenterology was consult for elevation and her LFTs. Patient denies any history of liver disease, no alcohol use, family history of liver disease, or new medications other than the Decadron. On her last admission her abdominal ultrasound did show possible cholecystitis. Repeat abdominal ultrasound showed gallbladder sludge, small right pleural effusion, small amount of ascites, nonobstructing right renal calculus, CBD is within normal limits. The patient denies any previous history of gallbladder disease. She is seen and examined lying in bed denying any abdominal pain, nausea, or vomiting. A-team was called this morning for hypotension, stable now. Patient likely has a component of underlying liver disease. Gen. surgery is following. LFTs are trending down. Objective - Vital Signs Vital signs: Vital Signs Temp 98.3 F 11/25/20 08:00 Pulse 90 11/25/20 08:00 Resp 18 11/25/20 08:00 BP 86/58 11/25/20 08:43 Pulse Ox 97 11/25/20 08:00 Intake & Output 11/24/20 11/25/20 11/25/20 18:59 06:59 18:59 Intake Total 600 240 Output Total 350 640 Balance 250 -640 240 Weight 61 kg Intake: Oral 600 240 Output: Urine 350 640 Other: Voiding Method Indwelling Catheter External Catheter External Catheter # Bowel Movements 1 - Exam General appearance: The patient is alert, oriented, appears in no acute distress. HET: Head is normocephalic and atraumatic. Conjunctiva pink. Sclera anicteric. Neck: Supple without lymphadenopathy. Abdomen: Soft, right upper quadrant tenderness,, nondistended with bowel sounds. No guarding or rigidity. Extremities: Normal skin color and turgor. No pedal edema Skin: No rashes, no jaundice Neurological: No focal deficits. Alert and oriented 3. - Labs CBC & Chem 7: 11/25/20 08:58 11/24/20 11:34 Labs: Abnormal Lab Results - Last 24 Hours (Table) 11/24/20 11/25/20 Range/Units 11:34 08:43 Sodium 131 L (137-145) mmol/L BUN 34 H (7-17) mg/dL POC Glucose (mg/dL) 123 H (75-99) mg/dL Total Bilirubin 1.8 H (0.2-1.3) mg/dL AST 48 H (14-36) U/L ALT 73 H (4-34) U/L Alkaline Phosphatase 183 H (38-126) U/L Total Protein 5.2 L (6.3-8.2) g/dL Albumin 2.6 L (3.5-5.0) g/dL Assessment and Plan (1) Transaminitis Narrative/Plan: 70-year-old female who presented to the emergency department with complaints of shortness of breath was found to have acute pulmonary embolism and started on anticoagulation. Patient has multiple comorbidities including recent diagnosis of multiple myeloma undergoing treatment with Dr. Madrid. She was noted to have elevation in her liver enzymes and gastroenterology was consulted. Patient has had elevated LFTs since July of this year. She denies any previous alcohol history, family history of liver disease, new medications, or known liver disease. She denies any previous history of hepatitis. She had a liver ultrasound done during her last admission in September of this year that showed mild ascites, thickened gallbladder wall at 0.45 cm. Some pericholecystic fluid present. Correlate for cholecystitis. Liver appeared to be coarse in echotexture. Current LFTs total bilirubin 2.2, alkaline phosphatase 179, AST 67, ALT 101. Unknown etiology at this time. Will order hepatitis panel, KAIA, AMA, and SMA for further evaluation. Abdominal ultrasound with findings suggestive of gallbladder sludge, small right pleural effusion, small amount of ascites, nonobstructing right renal calculus, CBD within normal limits. Etiology unknown, likely has underlying liver disease. Liver serology negative to date. Current Visit: No Status: Acute Priority: High Code(s): R74.01 - ELEVATION OF LEVELS OF LIVER TRANSAMINASE LEVELS SNOMED Code(s): 519974438 (2) Multiple myeloma Current Visit: Yes Status: Acute Priority: High Code(s): C90.00 - MULTIPLE MYELOMA NOT HAVING ACHIEVED REMISSION SNOMED Code(s): 606142473 (3) Pulmonary embolism Current Visit: Yes Status: Acute Priority: High Code(s): I26.99 - OTHER PULMONARY EMBOLISM WITHOUT ACUTE COR PULMONALE SNOMED Code(s): 02804357 Plan: 1. Continue symptomatic and supportive care 2. Abdominal ultrasound ordered and reviewed 3. AMA, KAIA, SMA ordered, negative to date 4. Avoid hepatotoxic medications 5. Gen. surgery following 6. Patient to follow-up with gastroenterology in 3-4 weeks Thank you for this consultation, we will sign off at this time. Dr. Jf Sandhu I agree with the dictator's note, documented as a scribe by Suzy Smith.
[2020-11-25] MEDS: ACETAMINOPHEN TAB 325 MG TAB PO PRN (14:45)
[2020-11-25 16:01] VITALS: BMI 27.1
--- NOTE | 2020-11-25 18:09 | P.PN ---
Subjective Progress Note Date: 11/25/20 Principal diagnosis: Pulmonary embolism, CHF, multiple myeloma In follow-up today patient is in bed, she seems to be in better spirits, smiling, she states she feels pretty good. She does not think she is having gallbladder surgery, denies any pain, nausea, fever, pain or difficulty in breathing. Objective - Vital Signs Vital signs: Vital Signs Temp 98.1 F 11/25/20 12:00 Pulse 84 11/25/20 12:00 Resp 18 11/25/20 12:00 BP 92/60 11/25/20 12:00 Pulse Ox 98 11/25/20 12:00 Intake & Output 11/24/20 11/25/20 11/25/20 18:59 06:59 18:59 Intake Total 600 480 Output Total 350 640 Balance 250 -640 480 Weight 61 kg Intake: Oral 600 480 Output: Urine 350 640 Other: Voiding Method Indwelling Catheter External Catheter External Catheter # Voids 1 # Bowel Movements 1 1 - Constitutional General appearance: Present: average body habitus, cooperative, no acute distress - EENT Eyes: Present: anicteric sclerae, EOMI ENT: Present: hearing grossly normal - Respiratory Respiratory: bilateral: CTA - Cardiovascular Rhythm: regular Heart sounds: normal: S1, S2 Abnormal Heart Sounds: Present: systolic murmur - Peripheral edema leg Peripheral Edema: bilateral: None - Gastrointestinal General gastrointestinal: Present: normal bowel sounds, soft. Absent: absent bowel sounds, decreased bowel sounds, distended, hepatomegaly, hyperactive bowel sounds, organomegaly, rigid, scaphoid, splenomegaly, tenderness, umbilical hernia, ventral hernia - Neurologic Neurologic: Present: CNII-XII intact - Musculoskeletal Musculoskeletal: Present: generalized weakness - Psychiatric Psychiatric: Present: A&O x's 3, appropriate affect, intact judgment & insight - Labs CBC & Chem 7: 11/25/20 08:58 11/24/20 11:34 Labs: Abnormal Lab Results - Last 24 Hours (Table) 11/25/20 11/25/20 Range/Units 08:43 08:58 Hct 47.8 H (34.0-46.0) % RDW 17.9 H (11.5-15.5) % POC Glucose (mg/dL) 123 H (75-99) mg/dL Assessment and Plan (1) Right leg DVT Narrative/Plan: Documented is nonocclusive thrombus, deep femoral and common femoral vein involved. 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 Lambda light chain in September was 85.4, now 20.04. Based no where pt is going to be discharged to (home or ECF) will determine what treatment options are available. We will make recommendations for treatment once discharge plans are in place. Current Visit: Yes Status: Acute Priority: High Code(s): D89.89 - OTH DISRD INVOLVING THE IMMUNE MECHANISM, NEC SNOMED Code(s): 96526883 (4) Multiple myeloma Current Visit: Yes Status: Acute Priority: High Code(s): C90.00 - MULTIPLE MYELOMA NOT HAVING ACHIEVED REMISSION SNOMED Code(s): 569230902 Plan: Patient is on eliquis for PE and DVT. Patient's myeloma, pending outpatient scenario where patient can receive treatment. Patient will also need lab draws and follow-up appts if she starts treatment.
[2020-11-25] MEDS: ALPRAZolam 0.25 MG TAB PO SCH (20:31)
[2020-11-26] MEDS: PANTOPRAZOLE 40 MG TABLET PO SCH (06:45)
[2020-11-26] MEDS: MIDODRINE 5 MG TAB PO SCH ×2 (06:46→11:56)
[2020-11-26] MEDS: IPRATROPIUM-ALBUTEROL 3 ML NEB INHALATION SCH ×2 (08:39→12:20)
[2020-11-26] MEDS: ASPIRIN 81 MG PO SCH (08:53)
[2020-11-26] MEDS: APIXABAN 5 MG TAB PO SCH (08:53)
[2020-11-26] MEDS: SERTRALINE 50 MG TAB PO SCH (08:53)
[2020-11-26] MEDS: PIPERACILLIN-TAZOBACTAM 3.375 GM in SODIUM CHLORIDE 0.9% 100 ML IVPB SCH ×3 (08:53)
--- NOTE | 2020-11-26 11:20 | P.PN ---
Subjective Progress Note Date: 11/26/20 CHIEF COMPLAINT: Shortness of breath HISTORY OF PRESENT ILLNESS: Surgical service following in regards to patient's cholecystitis. Patient denies any abdominal pain. She is tolerating diet. She denies any nausea or vomiting. Patient is afebrile. PHYSICAL EXAM: VITAL SIGNS: Reviewed. GENERAL: Well-developed in no acute distress. HEENT: No sclera icterus. Extraocular movements grossly intact. Moist buccal mucosa. Head is atraumatic, normocephalic. ABDOMEN: Soft. Nondistended. Nontender. NEUROLOGIC: Alert and oriented. Cranial nerves II through XII grossly intact. ASSESSMENT: 1. Cholecystitis. No longer having abdominal pain. Abdominal ultrasound findings suggestive of gallbladder sludge 2. Elevated LFTs trending downwards 3. Bilateral pulmonary embolism and right leg DVT on Eliquis 4. Acute on chronic CHF exacerbation 5. Multiple myeloma has not started chemotherapy yet PLAN: -Patient can be discharged from surgical standpoint when cleared medically -No surgical intervention planned at this time. Patient is a poor surgical candidate due to her acute bilateral pulmonary embolism and right leg DVT. She also has a very complicated medical history. Possible laparoscopic cholecystectomy outpatient in about 6 months when patient is medically stable -Continue conservative management -Continue antibiotics -Continue low-fat diet -Continue supportive care Physician Gas Technician note has been reviewed by physician. Signing provider agrees with the documented findings, assessment, and plan of care. Objective - Vital Signs Vital signs: Vital Signs Temp 97.8 F 11/25/20 20:00 Pulse 89 11/26/20 08:51 Resp 18 11/26/20 04:00 BP 107/57 11/26/20 04:00 Pulse Ox 94 L 11/26/20 04:00 Intake & Output 11/25/20 11/26/20 11/26/20 18:59 06:59 18:59 Intake Total 480 240 Output Total 510 Balance 480 -510 240 Weight 61 kg 58 kg Intake: Oral 480 240 Output: Urine 510 Other: Voiding Method External Catheter External Catheter # Voids 1 2 # Bowel Movements 1 1 - Labs CBC & Chem 7: 11/25/20 08:58 11/24/20 11:34 Labs: Abnormal Lab Results - Last 24 Hours (Table) 11/25/20 Range/Units 08:58 Hct 47.8 H (34.0-46.0) % RDW 17.9 H (11.5-15.5) %
[2020-11-26 12:00] VITALS: BP 101/63; TEMP 97.8
[2020-11-26 12:33] VITALS: PULSE 92
[2020-11-26 13:22] LABS: Anisocytosis Slight; Basophils # (A) 0.1 k/uL (0-0.2); Basophils % (A) 1 %; Eosinophils # (A) 0.1 k/uL (0-0.7); Eosinophils % (A) 1 %; HCT 46.4 % (34.0-46.0); HGB 15.3 gm/dL (11.4-16.0); Hypochromasia Slight; Lymphocytes % (A) 27 %; MCH 32.7 pg (25.0-35.0); MCV 99.2 fL (80.0-100.0); Macrocytosis Slight; Monocytes # (A) 0.6 k/uL (0-1.0); Monocytes % (A) 5 %; Neutrophils # (A) 7.2 k/uL (1.3-7.7); Neutrophils % (A) 64 %; Platelet Count 318 k/uL (150-450); RBC 4.68 m/uL (3.80-5.40); RDW 17.5 % (11.5-15.5); WBC 11.1 k/uL (3.8-10.6)
[2020-11-26 13:24] LABS: ALT 63 U/L (4-34); AST 56 U/L (14-36); African American GFR (CKD) >90 (>60 ml/min/1.73 sqM); Albumin 2.9 g/dL (3.5-5.0); Alkaline Phosphatase 169 U/L (38-126); Anion Gap 6 mmol/L; Blood Urea Nitrogen 32 mg/dL (7-17); Calcium 9.2 mg/dL (8.4-10.2); Carbon Dioxide 31 mmol/L (22-30); Chloride 96 mmol/L (98-107); Glucose 122 mg/dL (74-99); Magnesium 1.9 mg/dL (1.6-2.3); Non-African American GFR(CKD) 90 (>60 ml/min/1.73 sqM); Potassium 4.4 mmol/L (3.5-5.1); Sodium 133 mmol/L (137-145); Total Bilirubin 1.6 mg/dL (0.2-1.3); Total Protein 5.5 g/dL (6.3-8.2)
--- NOTE | 2020-11-26 15:10 | P.DS ---
Providers Date of admission: 11/19/20 20:10 Attending physician: Amber Rodriguez Consults: 11/19/20 20:10 Consult Physician Routine Consulting Provider: Paresh Madrid Consult Reason/Comments: Oncological care Do you want consulting provider notified?: Yes 11/19/20 20:12 Consult Physician Urgent Consulting Provider: Marko Lewis Consult Reason/Comments: PE, Chf Do you want consulting provider notified?: Yes 11/20/20 02:00 Consult Physician Routine Consulting Provider: Matthew Mitchell Consult Reason/Comments: pericardial effusion Do you want consulting provider notified?: Yes 11/23/20 13:54 Consult Physician Routine Consulting Provider: Fco Mcleod Consult Reason/Comments: Gallbladder sludge, RUQ tenderness Do you want consulting provider notified?: Yes Primary care physician: [facility] Course: History of present illness This 70-year-old pleasant female patient of Dr. Hand, with underlying history of paraesophageal hiatal hernia and GERD, chronic bronchial asthma, mild intermittent hypertension, hyperlipidemia, and recently diagnosed to have amyloidosis and multiple myeloma, through confirmed bone marrow biopsy was supposed to start treatment with Dr. Madrid on 10/11/2020. She was recently hospitalized, 08/25/2020, for shortness of breath, sees Dr. Soria cardiology and was diagnosed to have an STEMI, in, 07/17/2020, in the clinic in [facility]. She underwent a heart cath, the second time and was found to have nonobstructive CAD, diastolic CHF, EF was documented to be normal that time, and was discharged with Cozaar and Lopressor Lasix and potassium. Patient had a prolonged hospitalization from October 09/2021 to October 25/2021 for worsening shortness of breath. She was treated for cardiomyopathy likely secondary to amyloidosis from multiple myeloma, pleural effusions underwent thoracentesis where 700 mL was removed. Pleural fluid was transudative and cytology was nondiagnostic negative fluid culture. Patient had echocardiogram during that admission suggest EF of 45-50% moderate concentric left ventricular hypertrophy with moderate generalized pericardial effusion mild pulmonary hypertension. Patient was treated with dexamethasone for multiple myeloma but could not be started on chemotherapy Remlivid as patient was discharged to subacute rehab . Patient has been home for past 3 weeks where she was noted to be more short of breath with increased weakness. According to the family patient has not been active at home and is progressively getting worse despite getting physical therapy. On assessment in the ER, chest x-ray Mild congestive heart failure with chronic pleural effusion with slightly increased congestion compared to previous x-ray. CT is suggestive of bilateral small lower lobe pulmonary emboli which appeared new compared to on exam but changes of congestive heart failure and pulmonary edema right pleural effusion and moderate cardiomegaly epicardial effusion and ground glass interstitial edema that increased compared to old exam. EKG obtained suggested normal sinus rhythm with sinus arrhythmia. Overnight patient continued to have low blood pressure with a systolic in the 70s and diastolic in the 50s. One and a half liter of IV fluid was given with improvement in pressures. Patient is currently on 4 L of oxygen saturating at 94% labs reviewed suggest a WBC of 10.2 hemoglobin 16.8 hematocrit 50.7 d-dimer 2.3 sodium 128 potassium 4.6 BUN of 43 creatinine 0.6 elevated liver enzymes AST 59 ALT 122 alkaline phosphatase 222 troponin elevation of 0.1880 BNP elevated at 17,000 she was started on heparin infusion for pulmonary embolism. Venous Dopplers and echocardiogram ordered. Cardiothoracic surgery consulted for moderate pericardial effusion chest x-ray Mild congestive heart failure with chronic pleural effusion with slightly increased congestion compared to previous x-ray. CT is suggestive of bilateral small lower lobe pulmonary emboli which appeared new compared to on exam but changes of congestive heart failure and pulmonary edema right pleural effusion and moderate cardiomegaly epicardial effusion and ground glass interstitial edema that increased compared to old exam. EKG obtained suggested normal sinus rhythm with sinus arrhythmia 11/21 patient examined bedside. She is currently on 3 L of oxygen saturating 95% afebrile pulse 87 and respiratory rate 16 blood pressure 90/61. Patient's has improvement in sodium to 130 potassium 4.2 BUN 15 creatinine 0.6 glucose 159 and total bilirubin 2.6 AST 52 ALT 86 alkaline phosphatase 185 patient was noted to have elevated liver enzymes in the previous hospitalization total bilirubins continued to downtrend.ltrasound liver obtained during last hospitalization was found to have acute cholecystitis with that the cholecystic fluid. This Vessel surgery has seen the patient plan to transition patient to oral anticoagulation with no surgical intervention. Patient initiated on Eliquis 10 mg twice a day. Doppler lower extremity suggestive nonocclusive DVT in the right lower extremity. Echocardiogram suggestive of restrictive cardiomyopathy with EF 40- 45%. Probably pressure around 37.4. Moderate pleural effusion noted. Cardiothoracic surgeon plans no intervention. PTOT consult. Patient initiated on Lasix 20 mg IV daily 11/22 patient examined bedside. Patient appears very depressed. States she would like to go home and get her strength back. Patient was seen by physical therapy. Patient is currently a 2 person assist to get her out of the bed to the chair. Patient has progressed poorly in the [facility]. [facility]. patient denies any shortness of breath or chest pain. She is stable at 3 L of oxygen. Blood pre ssure 88/56 pulse 862 respiratory rate 18. Patient received a dose of 20 mg of Lasix this morning and metoprolol 12.5 once a day with the worsening of blood pressure. Will hold metoprolol. Continue Lasix at 20 mg by mouth daily. Discussed plan with family. If patient's blood pressure stabilizes patient will be discharged from the [facility] with follow-up with oncology for possible chemotherapy initiation. GI seen the patient for ultrasound of the liver ordered 11/23 patient examined bedside. She is extremely weak and lethargic. Patient was seen best physical therapy were recommended going back to subacute rehab but patient is too weak to make any progression. Patient was at [facility] and was discharged because she was not making any progress. Family is interested in an assisted living facility with 24-hour care hired by the family. Patient answers questions appropriately denies any dizziness or lightheadedness. Denies any chest pain or breathing difficulty. Vitals were reviewed patient's afebrile pulse 86 respiratory rate 18 blood pressure 98/66 oxygen saturation 95 on 3 L. Ultrasound of her suggestive of gallbladder sludge with possibility of cholecystitis. The surgery team consulted. Patient had hiatal hernia repair by Dr. Sharp in Apr 2020. Surgery team will get back with the family if surgery could be performed. We will discuss patient's prognosis with Dr. Madrid to see if patient can tolerate chemotherapy. Detailed discussion was made with the power of jewel stripper would do understand that if no progress is made and if patient cannot tolerate chemotherapy, and they are willing to switch patient to palliative care. 11/24 patient examined bedside. Appears slightly confused on assessment today. No plan for surgery as patient is a poor surgical candidate. IV antibiotics to be continued for cholecystitis. Supportive care recommended by GI. Repeat CMP tomorrow. AMA, KAIA and SMA are negative. Vitals were reviewed patient has temp of 98.3 pulse 96 respiratory 16 blood pressure 94/57 saturating at 94% on 3 L. No episodes of fever overnight. Labs reviewed patient's sodium 131 BUN 34 creatinine 0.6 AST 48 ALT 73 alkaline phosphatase stable at 183 slightly improved compared to yesterday. Hepatitis panel was negative. 11/25 patient examined bedside denies any difficulty with chest pain shortness of breath. Patient had an event episode this morning since her blood pressure dropped to the low 70s. Manual check suggest improvement in blood pressure to the low 80s. Patient was asymptomatic denies any dizziness or Patient noted to be tired and slightly confused by the nurses. Patient participates in conversation and is able to answer orientation questions. Vitals are stable temperature is 98.1 pulse 84 respiratory rate 18 blood pressure 92/60 oxygenation saturation 98% on 3 L. Lactic acid 1.1 hemoglobin 15.6 sodium stable at 131 BUN 34 creatinine 0.6 total bilirubin improved to 1.8 slight improvement in liver enzymes as per yesterday's labs. Continue Zosyn. Needed can initiate 10 mg 3 times a day to help of blood pressures. Lasix discontinued 11/25 patient examined bedside. She denies any chest pain or shortness of breath. Patient is currently comfortable at 3 L of oxygen. Vitals are reviewed patient is saturating 97% on 3 L on room air patient is 87%. Patient would need oxygen for congestive heart failure. She has low blood pressure and cannot tolerate any diuretics. Patient is currently off Lasix and beta josé due to intolerance of medications. Patient to start treatment with oncology on Sunday. Patient to be on Eliquis 10 mg 2 times a day for 7 days followed by 5 mg twice a day for lifetime. Prescription sent to the pharmacy. Augmentin for 7 days for cholecystitis since patient is not a surgical candidate. Follow-up as outpatient with surgery, primary care and oncology. Follow up with cardiology as outpatient. PT assessment was done patient does qualify for subacute rehab but since she has not made any progress since the last admission. Family would like to take her to an assisted living facility with home care and elevator constructor helper ROS Co shortness of breath. nstitutional: Denies chills, Denies fever,endorses increasing weaknesss, Denies weight loss Eyes: denies decreased vision, denies diplopia, denies discharge, denies pain Ears: deny: decreased hearing Ears, nose, mouth and throat: Denies dental pain, Denies headache, Denies nasal discharge, Denies nose pain Cardiovascular: Denies chest pain, improved exercise tolerance, LE edema improved, Denies high blood pressure, Denies irregular heart beat, Denies palpitations, Denies paroxysmal nocturnal dyspnea, Denies rapid heart beat, Denies shortness of breath Respiratory Denies cough, Denies cough with sputum and dyspnea stable Denies home oxygen, Denies wheezing Gastrointestinal: Denies abdominal pain, Denies change in bowel habits, Denies coffee ground emesis, Denies early satiety, Denies excessive gas, Denies heartburn, Denies hematemesis, Denies hematochezia, Denies loss of appetite, Denies nausea, Denies vomiting Genitourinary: Denies dysuria, Denies flank pain, Denies kidney stones, Denies menorrhagia, Denies urgency, Denies urinary frequency Musculoskeletal Endorses gait dysfunction, Denies limitation of motion, Denies morning stiffness, Denies muscle cramps Integumentary: Denies rash, Denies wounds, Denies brittle nails, Denies change in hair/nails, Denies darkening of skin Neurological: Denies balance difficulties, Denies change in speech, Denies double vision, Denies gait dysfunction, Denies loss of vision, Denies motor disturbance, Denies numbness, Denies paralysis, Denies paresthesias, Denies seizures Psychiatric: Denies anxiety, Denies depression Endocrine: Denies excessive sweating, Denies excessive thirst, Denies high blood sugars, Denies palpitations Hematologic/Lymphatic: Denies easy bruising, Denies lymphadenopathy Physical exam - Constitutional General appearance: cooperative, no acute distress,significantly debilitated, appears confused - EENT Eyes: anicteric sclerae, PERRLA, normal appearance ENT: hearing grossly normal - Neck Neck: no lymphadenopathy, normal ROM, no other, no rigidity, no stridor, no thyromegaly - Respiratory Respiratory: bilateral:Increased air entry with crackles at the bases, rhonchi no wheezing - Cardiovascular Rhythm: regular Heart sounds: normal: S1, S2 Abnormal Heart Sounds: no systolic murmur, no diastolic murmur, positive for S3 Gallop, no S4 Gallop, no click, 1+ pitting edema oth - Gastrointestinal General gastrointestinal: normal bowel sounds, soft tender rigth upper quad - Integumentary Integumentary: no rash - Neurologic Neurologic:No motor or sensory deficits - Musculoskeletal Musculoskeletal Gait not assessed strength equal bilaterally - Psychiatric Psychiatric: A&O x's 2, appropriate affect Assessment and plan .#1 acute hypoxic respiratory failure secondary to acute on chronic systolic and diastolic congestive heart failure and pulmonary embolis on eliquis. Venous Dopplerpositive for DVT in the right leg . Echocardiogram with EF 40-45 % with severe concentric left ventricular hypertrophy small likely restrictive cardiomyopathy pericardial effusion #2. Acute on chronic systolic and diastolic congestive heart failure likely restrictive cardiomyopathy based on echo #3. Bilateral pulmonary embolism and right DVT continue Eliquis at 10 mg twice a day 4. Elevated troponins which is chronic 5. Chronic pericardial effusion appears small per echocardiogram 6. Amyloidosis, suspect nonischemic cardiomyopathy 7. Multiple myeloma. 8. Acute cholecystitis 9. Hyponatremia likely secondary to hypervolemia 10. Restrictive cardiomyopathy likely secondary to multiple myeloma 11. Hypertension. 12. Hiatal hernia status post robotic-assisted laparoscopic repair of incarcerated paraesophageal hernia in April 2020, stable. 13. Mild intermittent asthma, stable. 14. Gastroesophageal reflux disease 15. Generalized anxiety disorder. 16. Bilateral Lower extremity weakness. 16 small pleural effusion status post thoracentesis 700 mL the previous admission. 17. Hyperlipidemia. 18. DVT right lower extremity nonocclusive 19 severe disability. Discharge plan: PT OT consult for possible rehab placement. Spoke to the power of jewel stripper of the patient the would like the patient go to [facility] so that she can be treated for her cancer and since patient has not made any progress with rehab. Discussed with family Sarika power of jewel stripper possibility of palliative care if patient is unable to tolerate chemotherapy. Family willing to switch to palliative care if patient is a poor prognosis and unable to tolerate chemotherapy. Spoke to oncology and feels patient would do well with the treatment. Plan to discharge to [facility] with PT and 24 hour hire Patient Condition at Discharge: Serious Plan - Discharge Summary Discharge Rx Participant: No New Discharge Prescriptions: New Apixaban [Eliquis] 10 mg PO BID #67 tab Midodrine [ProAmatine] 10 mg PO AC-TID #90 tab Continue Spironolactone [Aldactone] 25 mg PO BID Sertraline [Zoloft] 50 mg PO DAILY Multivitamins, Thera [Multivitamin (formulary)] 1 tab PO DAILY Metoprolol Tartrate [Lopressor] 12.5 mg PO DAILY tab Furosemide [Lasix] 40 mg PO DAILY #30 tablet Omeprazole 20 mg PO BID ALPRAZolam [Xanax] 0.25 mg PO HS #3 tab Acetaminophen [Tylenol 8 Hour] 650 mg PO Q4H PRN PRN Reason: general discomfort Discharge Medication List Omeprazole 20 mg PO BID 08/24/20 [History] Multivitamins, Thera [Multivitamin (formulary)] 1 tab PO DAILY 10/07/20 [History] Sertraline [Zoloft] 50 mg PO DAILY 10/07/20 [History] Spironolactone [Aldactone] 25 mg PO BID 10/07/20 [History] ALPRAZolam [Xanax] 0.25 mg PO HS #3 tab 10/18/20 [Rx] Furosemide [Lasix] 40 mg PO DAILY #30 tablet 10/18/20 [Rx] Metoprolol Tartrate [Lopressor] 12.5 mg PO DAILY tab 10/18/20 [Rx] Acetaminophen [Tylenol 8 Hour] 650 mg PO Q4H PRN 11/19/20 [History] Apixaban [Eliquis] 10 mg PO BID #67 tab 11/26/20 [Rx] Midodrine [ProAmatine] 10 mg PO AC-TID #90 tab 11/26/20 [Rx] Follow up Appointment(s)/Referral(s): [facility] [Provider Group] - 1 Week Evan Liu MD [Primary Care Provider] - 1-2 days [facility], [NON-STAFF] - 1 Week Activity/Diet/Wound Care/Special Instructions: [facility] through [facility]. Patient will require 3L O2 due to CHF.
--- NOTE | 2020-11-27 00:26 | P.PN ---
Subjective Progress Note Date: 11/27/20 No s/s bleeding, no acute events. Objective - Vital Signs Vital signs: Vital Signs Temp 97.8 F 11/26/20 11:58 Pulse 90 11/26/20 12:20 Resp 18 11/26/20 11:58 BP 101/63 11/26/20 11:58 Pulse Ox 97 11/26/20 11:58 Intake & Output 11/25/20 11/26/20 11/26/20 18:59 06:59 18:59 Intake Total 480 240 Output Total 510 Balance 480 -510 240 Weight 61 kg 58 kg Intake: Oral 480 240 Output: Urine 510 Other: Voiding Method External Catheter External Catheter External Catheter # Voids 1 2 # Bowel Movements 1 1 - Exam - Constitutional General appearance: Present: average body habitus, cooperative, no acute distress - EENT Eyes: Present: anicteric sclerae, EOMI ENT: Present: hearing grossly normal - Respiratory Respiratory: bilateral: CTA - Cardiovascular Rhythm: regular Heart sounds: normal: S1, S2 Abnormal Heart Sounds: Present: systolic murmur - Peripheral edema leg Peripheral Edema: bilateral: None - Gastrointestinal General gastrointestinal: Present: normal bowel sounds, soft. Absent: absent bowel sounds, decreased bowel sounds, distended, hepatomegaly, hyperactive bowel sounds, organomegaly, rigid, scaphoid, splenomegaly, tenderness, umbilical hernia, ventral hernia - Neurologic Neurologic: Present: CNII-XII intact - Musculoskeletal Musculoskeletal: Present: generalized weakness - Psychiatric Psychiatric: Present: A&O x's 3, appropriate affect, intact judgment & insight - Labs CBC & Chem 7: 11/26/20 12:54 11/26/20 12:54 Assessment and Plan Plan: Assessment and Plan Right leg DVT - Acute deep femoral and common femoral vein involved. 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 - Lambda light chain in Michelle was 85.4, now 20.04. - Plan for follow-up after discharge to discuss ongoing treatment plan. Current Visit: Yes Status: Acute Priority: High Code(s): D89.89 - OTH DISRD INVOLVING THE IMMUNE MECHANISM, NEC SNOMED Code(s): 92300595 Multiple myeloma Current Visit: Yes Status: Acute Priority: High Code(s): C90.00 - MULTIPLE MYELOMA NOT HAVING ACHIEVED REMISSION SNOMED Code(s): 299294916 Plan: Patient is on eliquis for PE and DVT. PLan to please fill prior to discharge
== END 2020-11-26 16:55 | disposition home health service (06) | DRG 175 ==
LOC: EC 15:44 → 3SCARD 20:10 → 2SICU 11-20 02:03 → 3SCARD 11-20 04:33
PROVIDERS: ADMIT Family Medicine; ATTEND Family Medicine
DX: I26.99 Other pulmonary embolism without acute cor pulmonale (principal); I50.43 Acute on chronic combined systolic (congestive) and diastolic (congestive) heart failure; J96.01 Acute respiratory failure with hypoxia; E87.1 Hypo-osmolality and hyponatremia; I31.3 Pericardial effusion (noninflammatory); I42.5 Other restrictive cardiomyopathy; I82.411 Acute embolism and thrombosis of right femoral vein; E85.9 Amyloidosis, unspecified; R18.8 Other ascites; I11.0 Hypertensive heart disease with heart failure; Z90.710 Acquired absence of both cervix and uterus; Z87.11 Personal history of peptic ulcer disease; Z86.73 Personal history of transient ischemic attack (TIA), and cerebral infarction without residual deficits; Z83.3 Family history of diabetes mellitus; Z82.5 Family history of asthma and other chronic lower respiratory diseases; Z82.49 Family history of ischemic heart disease and other diseases of the circulatory system; Z79.899 Other long term (current) drug therapy; Z79.01 Long term (current) use of anticoagulants; E78.5 Hyperlipidemia, unspecified; E86.1 Hypovolemia; F32.9 Major depressive disorder, single episode, unspecified; F41.1 Generalized anxiety disorder; I25.2 Old myocardial infarction; I27.22 Pulmonary hypertension due to left heart disease; I25.10 Atherosclerotic heart disease of native coronary artery without angina pectoris; J45.20 Mild intermittent asthma, uncomplicated; K21.9 Gastro-esophageal reflux disease without esophagitis; K76.9 Liver disease, unspecified; K82.8 Other specified diseases of gallbladder; I95.9 Hypotension, unspecified; F41.9 Anxiety disorder, unspecified
CPT/HCPCS: 36415; 71046; 71275; 76700; 80053; 80074; 82550; 82553; 83516; 83605; 83735; 83880; 83883; 84165; 84484; 85025; 85379; 85610; 85730; 86038; 86235; 93005; 93306; 93970; 94640; 94760; 99291